=== PATIENT | female | born 1965 | race Caucasian/White ===

== ENCOUNTER 2018-07-19 00:09 | Outpatient (CLI) | payer MEDICAID, SELFPAY ==
--- NOTE | 2018-07-19 10:30 | MERGEMPI_ITS ---
*[facility]* *[facility]* [address] [place] [address] Myocardial Perfusion Imaging - SPECT Ethan protocol Date of study: 07/19/2018 *PATIENT PRESENTATION* Height: 162.6cm (64in) Blood Pressure: Weight: 56.4kg (124lb) BSA: 1.6m^2 Referring physician: Collin Yousif Ordering physician: Rowena Mayo Impressions: - Exercise stress test converted to pharmacological stress test because target heart rate was not achieved. - Normal myocardial perfusion and contraction after pharmacological stress. Summary: 1. Myocardial perfusion imaging: No myocardial perfusion defects noted. 2. The calculated left ventricular ejection fraction after stress: 68%. LV global systolic function is normal. No left ventricular regional motion abnormality. 3. Stress ECG conclusions: The stress ECG is indeterminate due to Inadequate heart rate. 4. Stress: The target heart rate was not achieved. The heart rate response to stress is blunted. There is a normal resting blood pressure with an appropriate response to stress. Exercise capacity is poor (3.5 METS). 5. Baseline ECG: QTc 490ms. Indication: R06.09. History: REASON FOR VISIT: PT IS HERE FOR PRE-SURGICAL SCREENING FOR PLANNED SURGERY WITH DR VALENCIA AT [facility] TO REMOVE BLOCKAGES PER PT'S REPORT. PT DOES NOT HAVE AN HISTORY AND PHYSICAL ON FILE. PMH: COPD. Risk factors: Current tobacco use. Hypertension. Dyslipidemia. Peripheral vascular disease. ALLERGIES: NO KNOWN ALLERGIES. MEDICATIONS: CLONAZEPAM UNKNOWN DOSE NEEDED. LISINOPRIL 20 MG DAILY. METOPROLOL TARTRATE 25 MG TWICE A DAY. Imaging Technique: Protocol: Ethan protocol. Acquisition: Gated SPECT; 1 day - rest/stress. The patient was imaged in the supine position. Attenuation correction used. Isotope administration: - Rest. Tc[99m]-sestamibi. Dose: 9.3mCi. Injection time: 10:20 AM. Injection to stress time: 00:45. - Stress. Tc[99m]-sestamibi. Dose: 28.1mCi. Injection time: 12:40 PM. 1-2 min before end of exercise Baseline ECG: SINUS RHYTHM. HR 71 BPM. INCOMPLETE BBB PATTERN. FLATTENED T WAVES IN ANTEROLATERAL LEADS. QTc 490ms. Normal sinus rhythm with a nonspecific intraventricular conduction defect and borderline QT interval. Stress protocol: + +--+ + + !Stage !HR!BP (mmHg) !Comments ! + +--+ + + !Baseline supine !71!110/58 (75)! ! + +--+ + + !Baseline standing!73!90/52 (65) ! ! + +--+ + + !Recovery; 1 min !93!132/58 (83)! ! + +--+ + + !Recovery; 6 min !82!142/64 (90)! ! + +--+ + + !1 min !93!138/62 (87)!Inject Regadenoson.! + +--+ + + !3 min !89!148/64 (92)! ! + +--+ + + !6 min !83!116/60 (79)! ! + +--+ + + * Stress results: Maximal heart rate during stress was 101bpm (60% of maximal predicted heart rate). The maximal predicted heart rate was 169bpm. The target heart rate was not achieved. The heart rate response to stress is blunted. There is a normal resting blood pressure with an appropriate response to stress. The rate-pressure product for the peak heart rate and blood pressure was 77274so Hg/min. Exercise capacity is poor (3.5 METS). Stress ECG: TREADMILL PORTION OF STRESS TEST ENDED IN 1 MINUTE & 49 SECONDS PER PT'S REQUEST DUE TO COMPLAINTS OF SIGNIFICANT HIP PAIN. PT WAS TRANSITIONED TO LEXISCAN PROTOCOL. NORMAL HEART RATE AND NORMAL BLOOD PRESSURE RESPONSE TO EXERCISE MAX HR = 101 % OF TARGET = 59 NO ECTOPY APPROXIMATE METS ACHIEVED = 3.58 NO [address] NO SIGNIFICANT ST SEGMENT CHANGES MARKEDLY DIMINISHED FUNCTIONAL CAPACITY FOR EXERCISE. LEXISCAN STRESS TEST ENDED IN 6 MINUTES. PT DID NOT EXPERIENCE ANY SIGNIFICANT SIDE EFFECTS FROM LEXISCAN. NORMAL HEART RATE AND BLOOD PRESSURE RESPONSE TO LEXISCAN NO ECTOPY NO ANGINA NO SIGNIFICANT ST SEGMENT CHANGES. The stress ECG is indeterminate due to Inadequate heart rate. Myocardial perfusion: Imaging information: gated. The image quality was good. Left ventricular size is normal. No myocardial perfusion defects noted. Ventricular Function (Wall Motion): The calculated left ventricular ejection fraction after stress: 68%. LV global systolic function is normal. No left ventricular regional motion abnormality. Study data: Collin Yousif MD supervised and was readily available during the procedure. This study was interpreted by [facility]. Study status: Routine. Consent: The risks, benefits, and alternatives to the procedure were explained to the patient and informed consent was obtained. Procedure: Initial setup. A baseline ECG was recorded. Surface ECG leads and manual cuff blood pressure measurements were monitored. Heart sounds: Normal. Lung sounds: Normal. Treadmill exercise testing was performed using the Ethan protocol. Study completion: All catheters inserted during the procedure were removed. The patient tolerated the procedure well and was discharged from the lab. Discharge: The patient left the laboratory in stable condition. Birthdate: Patient birthdate: 1965. Sex: Gender: female. Study date: Study date: 07/19/2018. Study time: 12:30 PM. Signature Documentation: - The imaging portion of this study was interpreted by [employer] Press Secretary Collin Yousif MD. - The Stress ECG portion of this study was interpreted by Collin Yousif MD. Electronically signed by Collin Yousif 07/19/2018 16:27
[2018-07-19] MEDS: Regadenoson 0.4 MG/5 ML SYR IVP (15:08)
== END 2018-07-19 00:29 ==
PROVIDERS: PCP Family Medicine; Visit Provider Family Medicine
DX: R06.09 Other forms of dyspnea (principal); R94.30 Abnormal result of cardiovascular function study, unspecified; J44.9 Chronic obstructive pulmonary disease, unspecified; I10 Essential (primary) hypertension; E78.5 Hyperlipidemia, unspecified
CPT/HCPCS: 78452; 93017; J2785

== ENCOUNTER 2018-07-20 00:59 | Outpatient (CLI) | payer MEDICAID, SELFPAY ==
--- NOTE | 2018-07-20 10:38 | MERGE_ITS ---
*[facility]* *[facility]* [address] [place] [address] Date of study: 07/20/2018 Transthoracic Echocardiography M-mode, complete 2D, complete spectral Doppler, and color Doppler *STUDY CONCLUSIONS* Summary: 1. Left ventricle: The cavity size was normal. There was mild focal basal hypertrophy of the septum. Systolic function was hyperdynamic. The estimated ejection fraction was 65-70%. There was no dynamic obstruction. Wall motion was normal; there were no regional wall motion abnormalities. 2. Mitral valve: There was mild regurgitation. 3. Right ventricle: The cavity size was normal. Wall thickness was normal. Systolic function was normal. 4. Atrial septum: There was a very small patent foramen ovale. Doppler showed a very small [id number] shunt. *PATIENT PRESENTATION* Height: 162.6cm ((64in) ) S/D Pressure: 87 / 49 Weight: 56.2kg ((123.7lb) ) BSA: 1.59m^2 Test start time: 10:40 AM. Test stop time: 11:30 AM. ORDERING Rowena Mayo REFERRING Rowena Mayo PERFORMING Unknown PERFORMING [facility] [employer] RT Bolivar Kauffman)SHAKIR)ANGELA *PROCEDURE DATA* Procedure information: This study was interpreted by [facility]. Pertinent images and digital data are archived for permanent storage and are available for subsequent review. No prior study was available for comparison. Study status: Routine. Transthoracic echocardiography. M-mode, complete 2D, complete spectral Doppler, and color Doppler. A Transthoracic Echocardiogram was performed. Scanning was performed from the parasternal, apical, subcostal, and suprasternal notch acoustic windows. Images were obtained using an [id number] cardiac ultrasound machine. Image quality was adequate. Study completion: The patient tolerated the procedure well. There were no complications. History: PMH: Peripheral vascular disease. COPD. *CARDIAC ANATOMY* Left ventricle: The cavity size was normal. There was mild focal basal hypertrophy of the septum. Systolic function was hyperdynamic. The estimated ejection fraction was 65-70%. There was no dynamic obstruction. Wall motion was normal; there were no regional wall motion abnormalities. Diastolic parameters were normal. Aortic valve: Trileaflet; mildly thickened, mildly calcified leaflets. Mobility was not restricted. Doppler: Transvalvular velocity was within the normal range. There was no stenosis. There was no significant regurgitation. VTI ratio of LVOT to aortic valve: 0.97. Valve area (VTI): 3cm^2. Indexed valve area (VTI): 1.9cm^2/m^2. Peak velocity ratio of LVOT to aortic valve: 0.88. Valve area (Vmax): 2.7cm^2. Indexed valve area (Vmax): 1.7cm^2/m^2. Mean velocity ratio of LVOT to aortic valve: 0.93. Valve area (Vmean): 2.8cm^2. Indexed valve area (Vmean): 1.8cm^2/m^2. Mean gradient (S): 4.2mm Hg. Peak gradient (S): 8.5mm Hg. Aorta: Aortic root: The aortic root was normal in size. Mitral valve: Structurally normal valve. Mobility was not restricted. Doppler: Transvalvular velocity was within the normal range. There was no evidence for stenosis. There was mild regurgitation. Valve area by pressure half-time: 6.5cm^2. Indexed valve area by pressure half-time: 4.1cm^2/m^2. Peak gradient (D): 4.3mm Hg. Left atrium: The atrium was normal in size. Atrial septum: There was a very small patent foramen ovale. Doppler showed a very small [id number] shunt. Right ventricle: The cavity size was normal. Wall thickness was normal. Systolic function was normal. Pulmonic valve: The pulmonary valve appears to be grossly normal. Doppler: Transvalvular velocity was within the normal range. There was no evidence for stenosis. There was no significant regurgitation. Peak gradient (S): 2.7mm Hg. Tricuspid valve: Structurally normal valve. Doppler: Transvalvular velocity was within the normal range. There was no evidence for stenosis. There was trivial regurgitation. Pulmonary artery: Pulmonary systolic pressure was within the normal range, in the range of 30mm Hg to 35mm Hg. Right atrium: The atrium was normal in size. Pericardium: There was no pericardial effusion. Systemic veins: Inferior vena cava: Well visualized. The vessel was patent and normal in size. The respirophasic diameter changes were in the normal range (greater than or equal to 50%). Baseline ECG: Normal sinus rhythm. Measurements Left ventricle Value Reference LV ID, ED, PLAX 4.4 cm 3.5 - 6.0 LV ID, ES, PLAX 2.8 cm 2.1 - 4.0 LV PW thickness, ED, PLAX 1.0 cm LV end-diastolic volume, 1-p A2C 63 ml LV ejection fraction, 1-p A2C 59 % LV end-diastolic volume, 1-p A4C 69 ml LV ejection fraction, 1-p A4C 69 % LV e', lateral 0.116 m/sec LV E/e', lateral 9 LV e', medial 0.074 m/sec LV E/e', medial 14 LV e', average 0.095 m/sec LV E/e', average 11 Ventricular septum Value Reference IVS thickness, ED, PLAX 0.9 cm LVOT Value Reference LVOT ID, A-P 2.0 cm LVOT area 3.1 cm^2 LVOT peak velocity, S 1.28 m/sec LVOT mean velocity, S 0.89 m/sec LVOT VTI, S 26.1 cm LVOT peak gradient, S 6.5 mm Hg LVOT mean gradient, S 3.6 mm Hg Stroke volume (SV), LVOT DP 80 ml Stroke index (SV/bsa), LVOT DP 50 ml/m^2 Aortic valve Value Reference Aortic valve peak velocity, S 1.5 m/sec Aortic valve mean velocity, S 0.96 m/sec Aortic valve VTI, S 27.0 cm Aortic mean gradient, S 4.2 mm Hg Aortic peak gradient, S 8.5 mm Hg VTI ratio, LVOT/AV 0.97 Aortic valve area, VTI 3 cm^2 Velocity ratio, peak, LVOT/AV 0.88 Aortic valve area, peak velocity 2.7 cm^2 Velocity ratio, mean, LVOT/AV 0.93 Aortic valve area, mean velocity 2.8 cm^2 Aortic valve area/bsa, mean velocity 1.8 cm^2/m^2 Aorta Value Reference Aortic root ID, ED 2.7 cm Ascending aorta ID, A-P, S 3.3 cm RVOT Value Reference RVOT VTI, S 17.3 cm Left atrium Value Reference LA ID, A-P, ES 3.4 cm LA ID/bsa, A-P 2.1 cm/m^2 <=2.2 LA area, ES, A4C 18.5 cm^2 8.8 - 23.4 LA area, ES, A2C 14 cm^2 LA volume/bsa, ES, 1-p A4C 32 ml/m^2 LA volume, ES, 2-p 42 ml LA volume/bsa, ES, 2-p 26 ml/m^2 LA/aortic root ratio 1.24 Mitral valve Value Reference Mitral E-wave peak velocity 1.03 m/sec Mitral A-wave peak velocity 0.49 m/sec Mitral deceleration time (L) 116 ms 150 - 230 Mitral pressure half-time 34 ms Mitral peak gradient, D 4.3 mm Hg Mitral E/A ratio, peak 2.11 Mitral valve area, PHT, DP 6.5 cm^2 Pulmonary veins Value Reference Pulmonary vein peak velocity, S 0.55 m/sec Pulmonary vein peak velocity, D 0.49 m/sec Pulmonary vein velocity ratio, peak, 1.11 S/D Tricuspid valve Value Reference Tricuspid regurg peak velocity 2.8 m/sec Tricuspid peak RV-RA gradient 32.2 mm Hg Right atrium Value Reference RA area, ES, A4C 11.9 cm^2 8.3 - 19.5 Pulmonic valve Value Reference Pulmonic peak gradient, S 2.7 mm Hg Legend: (L) and (H) qi values outside specified reference range. I have personally reviewed the images and have reviewed and edited the reported findings. Electronically signed by Collin Yousif 07/20/2018 16:14
== END 2018-07-20 01:19 ==
PROVIDERS: PCP Family Medicine; Visit Provider Family Medicine
DX: J44.9 Chronic obstructive pulmonary disease, unspecified (principal); I73.9 Peripheral vascular disease, unspecified; I05.1 Rheumatic mitral insufficiency
CPT/HCPCS: 93306

== ENCOUNTER 2018-09-26 15:41 | Inpatient (IN) | payer MEDICAID, SELFPAY ==
[2018-09-26] VITALS (48 sets, daily range): BP systolic 111–172; BP diastolic 48–157; PULSE 97–192; RESP 17–35; TEMP 36.2–36.5; O2SAT 95–100
--- NOTE | 2018-09-26 16:09 | DI.CT_ITS ---
SYMPTOM/DIAGNOSIS: SHORTNESS OF BREATH, PALPITATIONS, H/O CANCER CT ANGIOGRAPHY CHEST: 09/26 CT angiography of the chest was performed with a bolus infusion of 100 cc IsoVue 370. Images obtained through the upper abdomen show unremarkable appearance of visualized portions of kidneys, adrenals, spleen and pancreas. There appears to be hepatic steatosis. There is significant motion artifact on this scan which limits evaluation of peripheral pulmonary arterial circulation, however, there is no evidence of pulmonary embolic disease. No thoracic aortic aneurysm or dissection seen. No mediastinal or hilar adenopathy. Tracheobronchial tree appears intact. Note is made of areas of ground glass and consolidative opacity involving portions of lingula, left lower lobe and right lower lobe. The findings are suspicious for a pneumonia, please correlate clinically. The esophagus appears thick-walled particularly in the mid-thoracic region and there is question of esophageal mass and/or retained ingested material. Requisition states the patient has a 'history of cancer' and correlation requested regarding esophageal carcinoma, if the patient has not had recent endoscopy an endoscopic evaluation of the esophagus would be recommended. CONCLUSION: 1. Findings suggesting multifocal pneumonia 2. Findings of probable esophageal mass or obstruction, endoscopic evaluation of the esophagus recommended.
[2018-09-26 16:39] LABS: Abs Immature Grans 0.08 k/cumm (0.0-0.09); Basophils % 0.1; HGB 10.4 g/dL (12.0-15.5); Immature Grans % 0.5; Lymphocytes % 8.7; Mean Corp. HGB Concentration 35.9 g/dL (32.0-36.0); Mean Corpuscular Hemoglobin 33.2 pg (27.0-33.0); Mean Corpuscular Volume 92.7 fL (80-95); Mean Platelet Volume 10.2 fL (8.0-11.0); Monocytes % 4.5; Neutrophils % 86.2; Platelet Count 257 x1000/uL (130-400); RBC 3.13 m/cumm (4.00-5.20); RBC Distribution Width 13.3 % (11.7-14.6); White Blood Cell Count 14.99 k/cumm (4.4-10.8)
[2018-09-26] MEDS: LORazepam 2 MG/ML VIAL 1 MG IVP ×3 (16:49→17:57)
[2018-09-26] MEDS: Normal Saline 1,000 ML 1000 ML IV (16:49)
[2018-09-26 16:50] LABS: Absolute Basophil Count 0.01 k/cumm (0.0-0.2); Absolute Monocyte Count 0.67 k/cumm (0.11-0.7); Absolute Neutrophil Count 12.92 k/cumm (1.2-6.7)
[2018-09-26 17:01] LABS: ALT 20 U/L (12-78); AST 67 U/L (15-37); Albumin 2.5 g/dL (3.4-5.0); Alkaline Phosphatase 90 U/L (46-116); Anion Gap 21.3 mmol/L (3-11); BUN 18 mg/dL (7-18); Bilirubin, Direct 0.71 mg/dL (0.00-0.20); Bilirubin, Total 1.2 mg/dL (0.2-1.0); CO2 19.7 mmol/L (21.0-32.0); Calcium 8.7 mg/dL (8.5-10.1); Chloride 89 mmol/L (98-107); Estimated GFR 43.18 (mL/min/1.73m2); Glucose 120 mg/dL (70-100); Sodium 130 mmol/L (136-145); Total Protein 6.9 g/dL (6.4-8.2); Troponin I 0.04 ng/mL (0.00-0.06)
[2018-09-26 17:16] LABS: Potassium 2.1 mmol/L (3.5-5.1)
[2018-09-26] MEDS: LORazepam 2 MG/ML VIAL (17:17)
[2018-09-26] MEDS: POTASSIUM CHLORIDE 20 MEQ/100 ML BAG 50 MEQ IVPB ×3 (17:25→23:35)
[2018-09-26] MEDS: MAGNESIUM SULFATE 8.12 MEQ, MULTIVITAMIN 10 ML, THIAMINE 100 MG, FOLIC ACID 1 MG in Nor... 168.867 MG IV (17:30)
--- NOTE | 2018-09-26 17:31 | W.ED.GENAD ---
Discharge Plan Disposition Patient Disposition: [facility] INPATIENT Condition: Serious Discharge Details Chief Complaint: Palpitatns Clinical Impression: Alcohol withdrawal hallucinosis, Hypokalemia, Hypomagnesemia Reason For Visit: DAWNA Primary Care Provider: Rowena Mayo V ED Provider: Komal Chambers Home Meds and New Rx's Prescriptions: No Action lisinopril [Zestril] 20 MG tablet 20 mg PO DAILY RF: 0 metoprolol tartrate 25 MG tablet 50 mg PO BID RF: 0 clonazepam [Klonopin] 1 MG tablet PO PRN PRNRF: 0 cephalexin 500 MG capsule 500 mg PO QID Qty: 28 RF: 0 sulfamethoxazole-trimethoprim [Bactrim DS] 1 EACH tablet 1 ea PO BID Qty: 20 RF: 0 Medical Decision Making 53-year-old female with history of COPD, hypertension, hypothyroidism, breast cancer, depression, anxiety and alcohol abuse who presents for palpitations for the past week, worse today with shortness of breath. Patient is a significantly poor historian and was unable to recall any of her medications, and her complaint of palpitations changed from today to 1 week ago. She also stated she did not know what procedure she has at [facility] tomorrow and whether it is a bypass or an endoscopy. On questioning, patient did admit to history of daily alcohol use, and that her last drink was 3 days ago. Blood pressure 164/138. Pulse 122. Main concern would be alcohol withdrawal. Differential diagnosis includes alcohol withdrawal, pulmonary embolism, ACS, electrolyte abnormality, thyroid crisis, arrhythmia, pneumonia. Will place an IV, bolus IV fluids, Ativan IV, labs, urinalysis, alcohol, UDS, CT chest to rule out PE pending labs. EKG notes a rate of 114, sinus tachycardia, ST depression of 1 mL noted in V4, V5, V6. Significant artifact likely due to pt movement. No acute ST elevation. QTc 496. QRS 108. No old EKG to compare. 1715 -- pt noted to be hallucinating, restless, more tachycardic, still hypertensive. Concern would be alcohol withdrawal hallucinosis. Will give another dose 2mg ativan IV and obtain CT head chichi. Patient able to state her name and follow commands but is significantly restless and confused at times. When calling her name, she looks around and takes time to focus. She does not answer all questions appropriately and stated she thought she was at a friend's house. She does appear more confused than on arrival. Suspect likely alcohol withdrawal and concern for possible impending seizure. Will continue to give Ativan as needed. Low threshold for intubation if needed. Labs reviewed and note a white blood cell count of 14. Hemoglobin of 10. Potassium 2.1. Sodium 130. Bicarb 19. Anion gap 21. Magnesium 1. Troponin 0.04. Alcohol negative. Will order potassium and magnesium repletion. 174 -- d/w hospitalist - accepts pt for admission. Will come down to see pt. Discussed that will send to CT for CT head and CT chest once more stable and chichi. Will obtain portable chest x-ray now. Will give another milligram Ativan due to restlessness. 162 --chest x-ray notes a left lower lobe consolidation atelectasis versus pneumonia. Will hold on antibiotics at this time. Will order lactate and blood cultures. Patient appears more relaxed/less restless after return from CT. Nurse had placed a Romero catheter which appeared to produce more relaxation as patient had large amount of urine in bag. 184 --CT head negative for acute findings. CT chest noted alveolitis. Discussed with Dr. Laughlin and she will start antibiotics. Patient appeared to have faint b/l posterior tibialis pulses on my exam, difficult to assess dorsalis pedis pulses b/l. Her distal lower extremities were pale and cool to touch but no other skin changes noted. Bedside Doppler unable to assess the pulse but was difficult to obtain due to frequent patient movement. HPI General Mode of arrival: EMS. Date/Time Provider Initiated Documentation: 09/26/18 15:51. Limitations to Documentation: no limitations. Information obtained by: patient. HPI Narrative: Patient is a 53-year-old female with a history of COPD, breast cancer, alcohol abuse, anxiety and depression who presents for palpitations for the past week, worse today and associated with shortness of breath. Patient admits to drinking a sixpack of beer daily, states she last drank 3 days ago. She is a daily smoker. Patient states she is not sure she has been taking any of her medications. Patient is a poor historian and states that she has a procedure scheduled at [facility] tomorrow but she is not sure if it is a bypass or an endoscopy. States she is seen by [facility] cardiology Dr. Singleton and a GI doctor but she is unsure of his name. She denies any chest pain. Past medical history: COPD, hypertension, peripheral vascular disease, hypothyroidism, breast cancer, depression, anxiety, alcohol abuse Surgical history: Tubal ligation, breast lump x2 Social history: Smokes tobacco, daily drinker Medications: See list -nurse confirmed with pharmacy that patient is not taking any of her medications Allergies: NKDA Related Data Home Medications Medication Instructions Recorded Confirmed lisinopril [Zestril] 20 mg PO DAILY 02/13/14 09/26/18 metoprolol tartrate 50 mg PO BID 02/13/14 09/26/18 cephalexin 500 mg PO QID #28 cap 08/26/16 09/15/16 clonazepam [Klonopin] mg PO PRN PRN 08/26/16 sulfamethoxazole-trimethoprim 1 ea PO BID #20 tablet 09/15/16 09/26/18 [Bactrim DS] Previous Rx's Medication Instructions Recorded cephalexin 500 mg PO QID #28 cap 08/26/16 sulfamethoxazole-trimethoprim 1 ea PO BID #20 tablet 09/15/16 [Bactrim DS] Allergies Allergy/AdvReac Type Severity Reaction Status Date / Time No Known Allergies Allergy Unverified 12/10/17 14:16 General Stated Complaint: Palpitatns DELMI: 2 Review of Systems Review of Systems All systems reviewed & are unremarkable except as noted in HPI and below Constitutional Denies chills, Denies excessive sweating, Denies fatigue, Denies fever(s), Denies weakness and Denies weight loss Eyes Reports system reviewed and no additional complaints, except as docu and Denies blurry vision ENT Denies vertigo, Denies dizziness, Denies otalgia, Denies nasal congestion, Denies sore throat and Denies throat swelling Cardiovascular Denies chest pain, Denies syncope, Denies rapid heart rate, Reports palpitations and Reports dyspnea Respiratory Reports dyspnea Gastrointestinal Denies abdominal pain, Denies diarrhea and Denies vomiting Genitourinary Denies hematuria, Denies dysuria and Denies flank pain Musculoskeletal Denies back pain and Denies joint swelling Integumentary/Breasts Denies lesions and Denies rash Neurologic Denies behavioral changes, Denies confusion, Denies vertigo, Denies dizziness, Denies syncope and Denies weakness Psychiatric Denies behavioral changes, Denies confusion and Denies depression Endocrine Denies excessive sweating, Denies fatigue and Reports palpitations Hematologic/Lymphatic Denies easy bruising and Denies lymphadenopathy Allergic/Immunologic Denies throat swelling [facility] Social History Smoking/Tobacco Use Status: Current every day Exam Const General: cooperative and healthy appearing Orientation: alert and awake HENMT Head: normal to inspection Ears: hearing grossly normal bilaterally, external ears normal and TM's normal bilaterally General nose exam: external nose normal Face and sinus: normal facial exam Mouth: oral mucosae normal Teeth and gingiva: caries, poor dentition and other (no upper teeth) Throat: posterior oropharynx normal Eyes General: appearance normal, both eyes and all related structures Eyelids: eyelids normal Pupils: PERRL EOM: EOM intact bilaterally Neck Neck: normal visual inspection Lymphatic: no lymphadenopathy noted Chest Chest: normal inspection of the chest Resp Effort & Inspection: no retractions, tachypneic (Frequent deep and fast breaths through the nose) and other Auscultation: clear to auscultation bilaterally Cardio Rate: tachycardic Rhythm: regular rhythm GI Inspection: normal to inspection Palpation: soft, not firm, no guarding, no hepatosplenomegaly, no masses and nontender Auscultation: normal bowel sounds Back/Spine/Pelvis Back: no CVA tenderness Skin General skin exam: no rashes or lesions noted Neuro General: alert and awake Cognition: normal cognition Speech: abnormal speech garbled (pt states due to not having her dentures, speaks with pursed lips) Gait: normal gait Motor: muscle tone normal throughout and strength 5/5 throughout Sensory Exam: no sensory deficits noted Extrem General: normal to inspection, full ROM, no edema and other (Cool to touch bilaterally, faint bilateral PT pulse.) Psych Appearance: grossly normal Mental Status: mental status grossly normal Speech and Movement: speech and movement normal Affect: normal affect Thought Process: normal Course 09/26/18 19:30 Blood Blood Culture - Pending 09/26/18 19:13 Blood Blood Culture - Pending 09/26/18 18:50 Urine - Reflex from Ua Urine Culture - Pending Laboratory Tests Range/Units 09/26/18 09/26/18 09/26/18 16:30 16:30 16:30 WBC (4.4-10.8) k/cumm 14.99 H RBC (4.00-5.20) m/cumm 3.13 L Hgb (12.0-15.5) g/dL 10.4 L Hct (36.0-46.0) % 29.0 L MCV (80-95) fL 92.7 MCH (27.0-33.0) pg 33.2 H MCHC (32.0-36.0) g/dL 35.9 RDW (11.7-14.6) % 13.3 Plt Count (130-400) x1000/uL 257 MPV (8.0-11.0) fL 10.2 Immature Gran % 0.5 Neutrophils % 86.2 Lymphocytes % 8.7 Monocytes % 4.5 Eosinophils % 0.0 Basophils % 0.1 Absolute Neutrophils (1.2-6.7) k/cumm 12.92 H Absolute Lymphocytes (1.2-3.4) k/cumm 1.30 Absolute Monocytes (0.11-0.7) k/cumm 0.67 Absolute Eosinophils (0.0-0.7) k/cumm 0.00 Absolute Basophils (0.0-0.2) k/cumm 0.01 PT (9.3-10.8) sec 11.6 H INR (1.0-3.5) 1.2 APTT (21.0-31.4) sec 22.6 Sodium (136-145) mmol/L 130 L Potassium (3.5-5.1) mmol/L 2.1 L* Chloride (98-107) mmol/L 89 L Carbon Dioxide (21.0-32.0) mmol/L 19.7 L Anion Gap (3-11) mmol/L 21.3 H BUN (7-18) mg/dL 18 Creatinine (0.55-1.02) mg/dL 1.30 H Estimated GFR/1.73 m2 (mL/min/1.73m2) 43.18 Glucose (70-100) mg/dL 120 H Lactate (0.6-1.4) mmol/L Calcium (8.5-10.1) mg/dL 8.7 Magnesium (1.8-2.4) mg/dL 1.0 L Total Bilirubin (0.2-1.0) mg/dL 1.2 H Conjugated Bilirubin (0.00-0.20) mg/dL 0.71 H AST (15-37) U/L 67 H ALT (12-78) U/L 20 Alkaline Phosphatase (46-116) U/L 90 Troponin I (0.00-0.06) ng/mL 0.04 Total Protein (6.4-8.2) g/dL 6.9 Albumin (3.4-5.0) g/dL 2.5 L TSH (0.358-3.74) uIU/mL Urine Color (Yellow) Urine Clarity Urine pH (5-8) Ur Specific Raymond (1.005-1.025) Urine Protein (Negative) mg/dL Urine Ketones (Negative) mg/dL Urine Blood (Negative) Urine Nitrite (Negative) Urine Bilirubin (Negative) Urine Urobilinogen (Up TO 0.2) EU/dL Ur Leukocyte Esterase (Negative) Urine RBC (0-2) Urine WBC (0-5) HPF Ur Epithelial Cells (Negative) HPF Urine Crystals (Negative) HPF Urine Bacteria (Negative) HPF Urine Casts (Negative) LPF Urine Mucus (Negative) Ur Culture Indicated? Urine Glucose (Negative) mg/dL Urine Opiates Screen (Negative) Urine Methadone Screen (Negative) Ur Barbiturates Screen (Negative) Ur Tricyclics Screen (Negative) Ur Amphetamines Screen (Negative) U Benzodiazepines Scrn (Negative) Urine Cocaine Screen (Negative) Ur THC Screen (Negative) Ethyl Alcohol (<3) mg/dL < 3.0 Range/Units 09/26/18 09/26/18 09/26/18 16:30 17:58 18:50 WBC (4.4-10.8) k/cumm RBC (4.00-5.20) m/cumm Hgb (12.0-15.5) g/dL Hct (36.0-46.0) % MCV (80-95) fL MCH (27.0-33.0) pg MCHC (32.0-36.0) g/dL RDW (11.7-14.6) % Plt Count (130-400) x1000/uL MPV (8.0-11.0) fL Immature Gran % Neutrophils % Lymphocytes % Monocytes % Eosinophils % Basophils % Absolute Neutrophils (1.2-6.7) k/cumm Absolute Lymphocytes (1.2-3.4) k/cumm Absolute Monocytes (0.11-0.7) k/cumm Absolute Eosinophils (0.0-0.7) k/cumm Absolute Basophils (0.0-0.2) k/cumm PT (9.3-10.8) sec INR (1.0-3.5) APTT (21.0-31.4) sec Sodium (136-145) mmol/L Potassium (3.5-5.1) mmol/L Chloride (98-107) mmol/L Carbon Dioxide (21.0-32.0) mmol/L Anion Gap (3-11) mmol/L BUN (7-18) mg/dL Creatinine (0.55-1.02) mg/dL Estimated GFR/1.73 m2 (mL/min/1.73m2) Glucose (70-100) mg/dL Lactate (0.6-1.4) mmol/L Calcium (8.5-10.1) mg/dL Magnesium (1.8-2.4) mg/dL Total Bilirubin (0.2-1.0) mg/dL Conjugated Bilirubin (0.00-0.20) mg/dL AST (15-37) U/L ALT (12-78) U/L Alkaline Phosphatase (46-116) U/L Troponin I (0.00-0.06) ng/mL Total Protein (6.4-8.2) g/dL Albumin (3.4-5.0) g/dL TSH (0.358-3.74) uIU/mL 1.09 Cancelled Urine Color (Yellow) Yellow Urine Clarity Sl cloudy Urine pH (5-8) 7.0 Ur Specific Raymond (1.005-1.025) 1.015 Urine Protein (Negative) mg/dL Negative Urine Ketones (Negative) mg/dL Negative Urine Blood (Negative) Moderate H Urine Nitrite (Negative) Negative Urine Bilirubin (Negative) Negative Urine Urobilinogen (Up TO 0.2) EU/dL 0.2 Ur Leukocyte Esterase (Negative) Negative Urine RBC (0-2) 0-2 Urine WBC (0-5) HPF 3-5 Ur Epithelial Cells (Negative) HPF Few Urine Crystals (Negative) HPF Negative Urine Bacteria (Negative) HPF Packed Urine Casts (Negative) LPF Negative Urine Mucus (Negative) Negative Ur Culture Indicated? Yes Urine Glucose (Negative) mg/dL Negative Urine Opiates Screen (Negative) Urine Methadone Screen (Negative) Ur Barbiturates Screen (Negative) Ur Tricyclics Screen (Negative) Ur Amphetamines Screen (Negative) U Benzodiazepines Scrn (Negative) Urine Cocaine Screen (Negative) Ur THC Screen (Negative) Ethyl Alcohol (<3) mg/dL Range/Units 09/26/18 09/26/18 18:50 19:13 WBC (4.4-10.8) k/cumm RBC (4.00-5.20) m/cumm Hgb (12.0-15.5) g/dL Hct (36.0-46.0) % MCV (80-95) fL MCH (27.0-33.0) pg MCHC (32.0-36.0) g/dL RDW (11.7-14.6) % Plt Count (130-400) x1000/uL MPV (8.0-11.0) fL Immature Gran % Neutrophils % Lymphocytes % Monocytes % Eosinophils % Basophils % Absolute Neutrophils (1.2-6.7) k/cumm Absolute Lymphocytes (1.2-3.4) k/cumm Absolute Monocytes (0.11-0.7) k/cumm Absolute Eosinophils (0.0-0.7) k/cumm Absolute Basophils (0.0-0.2) k/cumm PT (9.3-10.8) sec INR (1.0-3.5) APTT (21.0-31.4) sec Sodium (136-145) mmol/L Potassium (3.5-5.1) mmol/L Chloride (98-107) mmol/L Carbon Dioxide (21.0-32.0) mmol/L Anion Gap (3-11) mmol/L BUN (7-18) mg/dL Creatinine (0.55-1.02) mg/dL Estimated GFR/1.73 m2 (mL/min/1.73m2) Glucose (70-100) mg/dL Lactate (0.6-1.4) mmol/L 3.1 H Calcium (8.5-10.1) mg/dL Magnesium (1.8-2.4) mg/dL Total Bilirubin (0.2-1.0) mg/dL Conjugated Bilirubin (0.00-0.20) mg/dL AST (15-37) U/L ALT (12-78) U/L Alkaline Phosphatase (46-116) U/L Troponin I (0.00-0.06) ng/mL Total Protein (6.4-8.2) g/dL Albumin (3.4-5.0) g/dL TSH (0.358-3.74) uIU/mL Urine Color (Yellow) Urine Clarity Urine pH (5-8) Ur Specific Raymond (1.005-1.025) Urine Protein (Negative) mg/dL Urine Ketones (Negative) mg/dL Urine Blood (Negative) Urine Nitrite (Negative) Urine Bilirubin (Negative) Urine Urobilinogen (Up TO 0.2) EU/dL Ur Leukocyte Esterase (Negative) Urine RBC (0-2) Urine WBC (0-5) HPF Ur Epithelial Cells (Negative) HPF Urine Crystals (Negative) HPF Urine Bacteria (Negative) HPF Urine Casts (Negative) LPF Urine Mucus (Negative) Ur Culture Indicated? Urine Glucose (Negative) mg/dL Urine Opiates Screen (Negative) Negative Urine Methadone Screen (Negative) Negative Ur Barbiturates Screen (Negative) Negative Ur Tricyclics Screen (Negative) Negative Ur Amphetamines Screen (Negative) Negative U Benzodiazepines Scrn (Negative) Negative Urine Cocaine Screen (Negative) Negative Ur THC Screen (Negative) Negative Ethyl Alcohol (<3) mg/dL Vital Signs Temperature 97.2 F L 09/26/18 15:49 Pulse 122 H 09/26/18 15:49 Respiratory Rate 26 H 09/26/18 15:49 Blood Pressure 164/138 H 09/26/18 15:49 Pulse Oximetry 95 09/26/18 15:49 Temperature 97.2 F L 09/26/18 15:49 Temperature Source Skin 09/26/18 15:49 Pulse 122 H 09/26/18 15:49 Respiratory Rate 26 H 09/26/18 15:49 Respiratory Effort 09/26/18 15:57 Blood Pressure 164/138 H 09/26/18 15:49 Blood Pressure Position Sitting 09/26/18 15:49 Pulse Oximetry 95 09/26/18 15:49 Oxygen Delivery Method Room Air 09/26/18 15:49 Oxygen Flow Rate 0 09/26/18 15:49 Pain Level 0 09/26/18 15:49 Lab/Test Results Lab/Test Results: Laboratory Tests Range/Units 09/26/18 09/26/18 16:30 16:30 WBC (4.4-10.8) k/cumm 14.99 H RBC (4.00-5.20) m/cumm 3.13 L Hgb (12.0-15.5) g/dL 10.4 L Hct (36.0-46.0) % 29.0 L MCV (80-95) fL 92.7 MCH (27.0-33.0) pg 33.2 H MCHC (32.0-36.0) g/dL 35.9 RDW (11.7-14.6) % 13.3 Plt Count (130-400) x1000/uL 257 MPV (8.0-11.0) fL 10.2 Immature Gran % 0.5 Neutrophils % 86.2 Lymphocytes % 8.7 Monocytes % 4.5 Eosinophils % 0.0 Basophils % 0.1 Absolute Neutrophils (1.2-6.7) k/cumm 12.92 H Absolute Lymphocytes (1.2-3.4) k/cumm 1.30 Absolute Monocytes (0.11-0.7) k/cumm 0.67 Absolute Eosinophils (0.0-0.7) k/cumm 0.00 Absolute Basophils (0.0-0.2) k/cumm 0.01 Sodium (136-145) mmol/L 130 L Potassium (3.5-5.1) mmol/L 2.1 L* Chloride (98-107) mmol/L 89 L Carbon Dioxide (21.0-32.0) mmol/L 19.7 L Anion Gap (3-11) mmol/L 21.3 H BUN (7-18) mg/dL 18 Creatinine (0.55-1.02) mg/dL 1.30 H Estimated GFR/1.73 m2 (mL/min/1.73m2) 43.18 Glucose (70-100) mg/dL 120 H Calcium (8.5-10.1) mg/dL 8.7 Magnesium (1.8-2.4) mg/dL 1.0 L Total Bilirubin (0.2-1.0) mg/dL 1.2 H Conjugated Bilirubin (0.00-0.20) mg/dL 0.71 H AST (15-37) U/L 67 H ALT (12-78) U/L 20 Alkaline Phosphatase (46-116) U/L 90 Troponin I (0.00-0.06) ng/mL 0.04 Total Protein (6.4-8.2) g/dL 6.9 Albumin (3.4-5.0) g/dL 2.5 L Critical Care Time Critical Care Time: Yes Total Critical Care Time: 30
[2018-09-26 17:34] LABS: ETHANOL BLOOD < 3.0 mg/dL (<3)
[2018-09-26 17:42] LABS: INR 1.2 (1.0-3.5); PTT Activated 22.6 sec (21.0-31.4); Prothrombin Time 11.6 sec (9.3-10.8)
--- NOTE | 2018-09-26 17:49 | DI.RAD_ITS ---
SYMPTOM/DIAGNOSIS: PALPITATIONS, SOB, R/O ACUTE DISEASE PORTABLE AP CHEST: 09/26 As noted on today's CT there are areas of patchy increased radiodensity in the left mid lung and left lung base, and possible minimal streaky changes in right lung base. The findings are consistent with multi-focal pneumonia, appropriate follow up studies requested.
--- NOTE | 2018-09-26 18:19 | DI.VRAD_ITS ---
EXAM: XR Chest, 1 View EXAM DATE/TIME: 09/26/2018 6:05 PM CLINICAL HISTORY: 53 years old, female; Signs and symptoms; Shortness of breath and other: Palpitations; Additional info: Patient AMS and unable to follow breathing instructions TECHNIQUE: XR of the chest, 1 view. COMPARISON: CR PORTABLE CHEST ONE VIEW 09/15/2016 12:21 AM FINDINGS: Mild left lower lobe consolidation pneumonia versus atelectasis. Pulmonary vasculature within normal limits. No significant pleural effusion. Heart within normal limits. IMPRESSION: Mild left lower lobe consolidation atelectasis versus pneumonia. Dictated and Authenticated by: Rai Lacey MD. Ordering:JOSEP MORRISON MD
--- NOTE | 2018-09-26 18:20 | DI.CT_ITS ---
SYMPTOM/DIAGNOSIS: CONFUSION, R/O ACUTE DISEASE CRANIAL CT: 09/[address] was performed There is moderate generalized cerebral atrophy, abnormal for this age group. There is significant motion artifact which limits interpretation. No gross intracranial hemorrhage, mass effect or midline shift seen, Orbital and temporal bone structures appear intact. CONCLUSION: No evidence of acute intracranial process. Marked atrophy noted.
[2018-09-26 18:25] LABS: TSH 1.09 uIU/mL (0.358-3.74)
[2018-09-26] MEDS: Omnipaque 350 MG/ML 100 ML BTL IJ (18:39)
[2018-09-26] MEDS: MAGNESIUM SULFATE 4 GM/100 ML BAG IVPB (18:48)
[2018-09-26] MEDS: POTASSIUM CHLORIDE 20 MEQ/100 ML BAG 10 MEQ (18:49)
--- NOTE | 2018-09-26 18:55 | DI.VRAD_ITS ---
EXAM: CT Head Without Intravenous Contrast EXAM DATE/TIME: 09/26/2018 6:21 PM CLINICAL HISTORY: 53 years old, female; Signs and symptoms; Altered mental status/memory loss; Confusion or disorientation; Additional info: Patient AMS and unable to hold still for exam TECHNIQUE: Axial computed tomography images of the head/brain without intravenous contrast. All CT scans at this facility use at least one of these dose optimization techniques: automated exposure control; mA and/or kV adjustment per patient size (includes targeted exams where dose is matched to clinical indication); or iterative reconstruction. Coronal and sagittal reformatted images were created and reviewed. COMPARISON: No relevant prior studies available. FINDINGS: Diffuse atrophy. No evidence of hemorrhage. No mass effect. No acute intracranial abnormality. IMPRESSION: No evidence of acute intracranial process. Dictated and Authenticated by: Rai Lacey MD. Ordering:JOSEP MORRISON MD
--- NOTE | 2018-09-26 19:01 | DI.VRAD_ITS ---
EXAM: CT Angiography Chest With Intravenous Contrast EXAM DATE/TIME: 09/26/2018 4:14 PM CLINICAL HISTORY: 53 years old, female; Signs and symptoms; Shortness of breath and other: Palpitations; Patient HX: HX of cancer; Additional info: Patient AMS and unable to follow breathing instructions TECHNIQUE: Axial computed tomographic angiography images of the chest with intravenous contrast using CT angiography protocol. All CT scans at this facility use at least one of these dose optimization techniques: automated exposure control; mA and/or kV adjustment per patient size (includes targeted exams where dose is matched to clinical indication); or iterative reconstruction. Coronal and sagittal reformatted images were created and reviewed. MIP reconstructed images were created and reviewed. CONTRAST: 63 ml of Omnipaque 350 administered intravenously. COMPARISON: CR XR PORTABLE CHEST AP 09/26/2018 6:05 PM FINDINGS: No evidence of pulmonary embolism. Thoracic aorta unremarkable. Groundglass opacity in the lingula and left lower lobe consistent with an alveolitis of uncertain acuity or etiology. Bibasilar atelectasis. Old left-sided rib fractures. Dilatation and ingested material within the mid and distal esophagus area of the possibility of a distal esophageal mass cannot be excluded. Further clinical correlation as needed. IMPRESSION: 1. 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 2. Equivocal findings with respect to the esophagus. Dictated and Authenticated by: Rai Lacey MD. Ordering:JOSEP MORRISON MD
[2018-09-26 19:12] LABS: Bilirubin Negative (Negative); Blood Moderate (Negative); Clarity Sl Cloudy; Glucose Negative (Negative); Ketones Negative (Negative); Leukocyte Esterase Negative (Negative); Nitrite Negative (Negative); Specific Gravity 1.015 (1.005-1.025); Urobilinogen 0.2 EU/dL (Up TO 0.2)
[2018-09-26 19:14] LABS: *AMPHETAMINES SCREEN URINE Negative (Negative); *BARBITURATES SCREEN URINE Negative (Negative); *BENZODIAZEPINES SCREEN URINE Negative (Negative); Cannabinoids THC Negative (Negative); Cocaine Screen,Urine Negative (Negative); METHADONE URINE SCREEN Negative (Negative); OPIATES URINE SCREEN Negative (Negative)
[2018-09-26 19:15] LABS: Tricyclic Antidepressants Negative (Negative)
[2018-09-26 19:21] LABS: RBC 0-2 (0-2)
[2018-09-26 19:22] LABS: Bacteria Packed HPF (Negative); C & S Indicated? Yes; Casts Negative LPF (Negative); Crystals Negative HPF (Negative); Epithelial Cells Few HPF (Negative); Mucus Negative (Negative)
[2018-09-26 19:28] LABS: Lactate-non-spesis 3.1 mmol/L (0.6-1.4)
--- NOTE | 2018-09-26 19:36 | W.PM.HP.N ---
Date of service: 09/26/18 Time of Service: 19:36 Assessment and Plan (1) Sepsis: Current visit: Yes Status: Acute Though tachycardia and altered mental status could also be related to alcohol withdrawal, evidence of alveolitis and the likely mechanism of aspiration as well as presence of lactic acidosis make sepsis still a likely diagnosis. Patient is being aggressively hydrated. Treat empirically with zosyn, await blood culture results. Will need an upper endoscopy to evaluate for reasons of dysphagia, and it likely should be done on this admission as the patient has no followed up with GI as outpatient, per [facility] records. (2) Aspiration pneumonia: Current visit: Yes Status: Acute As above. NPO at this time until surgical evaluation in am. (3) Alcohol withdrawal delirium: Current visit: Yes Status: Acute The patient will need to be treated with CIWA with IV ativan rather than PO as her mental status and ability to swallow pills make intravenous therapy safer. Monitor in ICU. Continue banana bag. (4) Abnormal EKG: Current visit: Yes Status: Acute In setting of electrolyte abnormalities, significance unclear - will monitor on telemetry with repeat troponins tonight and tomorrow am as well as repeat EKG in am. (5) Dysphagia: Current visit: Yes Status: Chronic Surgical evaluation in am. On PPI IV while NPO. High suspicion for malignancy considering CT findings as well as history alcohol and tobacco abuse. (6) Hypomagnesemia: Current visit: Yes Status: Acute Replete and monitor on telemetry. Repeat labs in am. (7) Hypokalemia: Current visit: Yes Status: Acute Replete and recheck in am. Monitor on telemetry. (8) PAD (peripheral artery disease): Current visit: Yes Status: Chronic check lipids in am. Patient already follows with vascular at [facility]. No signs of critical limb ischemia, but the patient does not have pedal pulses on admission, which appears to be her baseline. (9) Breast cancer: Current visit: Yes Status: Chronic s/p lumpectomy/XRT. Noncompliant with tamoxifen. Follow up as outpatient. (10) Urinary retention: Current visit: Yes Status: Acute It is possible that this was precipitated by administration of ativan. S/p benítez - would benefit from a voiding trial once mental status clears up. (11) Normocytic anemia: Current visit: Yes Status: Acute check anemia studies to include iron studies, B12, Folate, and hemoccult. (12) Discharge planning issues: Current visit: Yes Status: Acute I am unable to discuss patient's code status at the time of interview - she is full code by default. (13) DVT prophylaxis: Current visit: Yes Status: Acute Lovenox SQ. History of Present Illness Chief Complaint: palpitations, ?chest pain, shortness of breath Narrative: Patient is unable to provide her medical history at the time of my examination - her history is being obtained from chart review, including [facility], as well as from the ER provider. Ms Welch is a 53 year old female with PMHx of breast cancer (IDC, ER/VA +, lumpectomy and XRT, noncompliant with tamoxifen therapy), as well as PAD, hypertension, hypothyroidism, dysphagia for solids, tobacco abuse and alcohol abuse who, reportedly, was driving to [place] today when she suddenly felt palpitations, pulled over, and dialed 911. EMS found her to be in sinus tachycardia in 130's, hypoxic to high 80's (per ER nursing - EMS report is not available for my review). According to reports, the patient reported chest pain to EMS. When the patient arrived to [facility] ED, she complained more of shortness of breath and palpitations, not chest pain. Though she was A&OX3, the patient was felt to be somewhat disoriented even on arrival, not knowing what medications she takes, what procedure she was supposed to have at [facility]. Nursing verified her medications with her outpatient pharmacy - evidently, the patient hasn't been taking any of her medications. The patient reported that she normally drinks a 6 pack every day, but her last drink was 3 days ago. In ED, she was tachycardic, not hypoxic. About an hour later, she was noted to be agitated, restless, and suspected to have begun withdrawing from alcohol. There was no witnessed seizure activity, but there was a noticeable change in mental status. She was treated with PO and IV ativan. Her CT of the head and CTA of her chest were negative. She was found to be retaining urine (1.4 L out upon insertion of a benítez catheter). At the time of my exam, the patient is obtunded, difficult to arouse, moans to pain, reluctantly following commands. Review of Systems Review of Systems Unobtainable due to mental status [facility] Medical History Medical non-compliance (Chronic) Tobacco abuse (Chronic) Breast cancer (Chronic) PAD (peripheral artery disease) (Chronic) Dysphagia (Chronic) Alcohol abuse (Chronic) Social History Smoking/Tobacco Use Status: Current every day Surgical History H/O breast biopsy (Chronic) Hx of tubal ligation (Chronic) S/P breast lumpectomy (Chronic) Meds Home Medications Medication Instructions Recorded Confirmed Type lisinopril [Zestril] 20 mg PO DAILY 02/13/14 09/26/18 History metoprolol tartrate 50 mg PO BID 02/13/14 09/26/18 History cephalexin 500 mg PO QID #28 cap 08/26/16 09/15/16 Rx clonazepam [Klonopin] mg PO PRN PRN 08/26/16 History sulfamethoxazole-trimethoprim 1 ea PO BID #20 tablet 09/15/16 09/26/18 Rx [Bactrim DS] Allergies Allergy/AdvReac Type Severity Reaction Status Date / Time No Known Allergies Allergy Unverified 09/26/18 19:49 Exam Narrative Exam Narrative: General: Obtunded middle-aged female, appears older than her age, moaning to/withdraws from pain, squeezing my hand on command Neurological: obtunded, responsive to pain, reluctantly following commands, no focal deficits Psychiatric: Difficult to assess Skin: Pale/dry, no obvious bruises/rashes. LLE 3rd digit with a tiny scab HEENT: Does not voluntarily open eyes; when I open then, PERRLA B, EOMI. Holding mouth tightly shut - unable to open for oropharyngeal exam. No submandibular or cervical lymphadenopathy; no goiter or JVD. Cardiovascular: RRR, tachycardic, no murmurs, rubs, gallops Lungs: CTAB; nonlabored breathing on 2 L of NC Gastrointestinal: Abdomen soft, nontender, nondistended Genitourinary: has a benítez - urine clear yellow Extremities: no edema, clubbing or cyanosis. Bilateral feet are cool, pale; I am unable to palpate pedal pulses. Results Imaging Additional studies: CT head: No evidence of acute intracranial process. CXR: Mild left lower lobe consolidation atelectasis versus pneumonia. CTA chest: 1. 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 2. Equivocal findings with respect to the esophagus. ( Dilatation and ingested material within the mid and distal esophagus area of the possibility of a distal esophageal mass cannot be excluded. Further clinical correlation as needed. ) EKG: Sinus tachycardia, HR 114, ST depressions in inferior-lateral leads and nonspecific ST changes throughout. No prior EKG for comparison. Labs : 09/26/18 16:30 09/26/18 16:30 Laboratory Results - last 24 hr 09/26/18 09/26/18 09/26/18 16:30 16:30 16:30 WBC 14.99 H RBC 3.13 L Hgb 10.4 L Hct 29.0 L MCV 92.7 MCH 33.2 H MCHC 35.9 RDW 13.3 Plt Count 257 MPV 10.2 Immature Gran % 0.5 Neutrophils % 86.2 Lymphocytes % 8.7 Monocytes % 4.5 Eosinophils % 0.0 Basophils % 0.1 Absolute Neutrophils 12.92 H Absolute Lymphocytes 1.30 Absolute Monocytes 0.67 Absolute Eosinophils 0.00 Absolute Basophils 0.01 PT 11.6 H INR 1.2 APTT 22.6 Sodium 130 L Potassium 2.1 L* Chloride 89 L Carbon Dioxide 19.7 L Anion Gap 21.3 H BUN 18 Creatinine 1.30 H Estimated GFR/1.73 m2 43.18 Glucose 120 H Lactate Calcium 8.7 Magnesium 1.0 L Total Bilirubin 1.2 H Conjugated Bilirubin 0.71 H AST 67 H ALT 20 Alkaline Phosphatase 90 Troponin I 0.04 Total Protein 6.9 Albumin 2.5 L TSH Urine Color Urine Clarity Urine pH Ur Specific [place] Urine Protein Urine Ketones Urine Blood Urine Nitrite Urine Bilirubin Urine Urobilinogen Ur Leukocyte Esterase Urine RBC Urine WBC Ur Epithelial Cells Urine Crystals Urine Bacteria Urine Casts Urine Mucus Ur Culture Indicated? Urine Glucose Urine Opiates Screen Urine Methadone Screen Ur Barbiturates Screen Ur Tricyclics Screen Ur Amphetamines Screen U Benzodiazepines Scrn Urine Cocaine Screen Ur THC Screen Ethyl Alcohol < 3.0 09/26/18 09/26/18 09/26/18 16:30 17:58 18:50 WBC RBC Hgb Hct MCV MCH MCHC RDW Plt Count MPV Immature Gran % Neutrophils % Lymphocytes % Monocytes % Eosinophils % Basophils % Absolute Neutrophils Absolute Lymphocytes Absolute Monocytes Absolute Eosinophils Absolute Basophils PT INR APTT Sodium Potassium Chloride Carbon Dioxide Anion Gap BUN Creatinine Estimated GFR/1.73 m2 Glucose Lactate Calcium Magnesium Total Bilirubin Conjugated Bilirubin AST ALT Alkaline Phosphatase Troponin I Total Protein Albumin TSH 1.09 Cancelled Urine Color Yellow Urine Clarity Sl cloudy Urine pH 7.0 Ur Specific [place] 1.015 Urine Protein Negative Urine Ketones Negative Urine Blood Moderate H Urine Nitrite Negative Urine Bilirubin Negative Urine Urobilinogen 0.2 Ur Leukocyte Esterase Negative Urine RBC 0-2 Urine WBC 3-5 Ur Epithelial Cells Few Urine Crystals Negative Urine Bacteria Packed Urine Casts Negative Urine Mucus Negative Ur Culture Indicated? Yes Urine Glucose Negative Urine Opiates Screen Urine Methadone Screen Ur Barbiturates Screen Ur Tricyclics Screen Ur Amphetamines Screen U Benzodiazepines Scrn Urine Cocaine Screen Ur THC Screen Ethyl Alcohol 09/26/18 09/26/18 18:50 19:13 WBC RBC Hgb Hct MCV MCH MCHC RDW Plt Count MPV Immature Gran % Neutrophils % Lymphocytes % Monocytes % Eosinophils % Basophils % Absolute Neutrophils Absolute Lymphocytes Absolute Monocytes Absolute Eosinophils Absolute Basophils PT INR APTT Sodium Potassium Chloride Carbon Dioxide Anion Gap BUN Creatinine Estimated GFR/1.73 m2 Glucose Lactate 3.1 H Calcium Magnesium Total Bilirubin Conjugated Bilirubin AST ALT Alkaline Phosphatase Troponin I Total Protein Albumin TSH Urine Color Urine Clarity Urine pH Ur Specific [place] Urine Protein Urine Ketones Urine Blood Urine Nitrite Urine Bilirubin Urine Urobilinogen Ur Leukocyte Esterase Urine RBC Urine WBC Ur Epithelial Cells Urine Crystals Urine Bacteria Urine Casts Urine Mucus Ur Culture Indicated? Urine Glucose Urine Opiates Screen Negative Urine Methadone Screen Negative Ur Barbiturates Screen Negative Ur Tricyclics Screen Negative Ur Amphetamines Screen Negative U Benzodiazepines Scrn Negative Urine Cocaine Screen Negative Ur THC Screen Negative Ethyl Alcohol Last Vital Signs Temp 36.2 C L 09/26/18 15:49 Pulse 122 H 09/26/18 18:46 Resp 20 09/26/18 18:50 BP 118/101 H 09/26/18 18:46 Pulse Ox 97 09/26/18 19:06
--- NOTE | 2018-09-26 19:45 | HPE_ITS ---
Date of service: 09/26/18 Time of Service: 19:36 Assessment and Plan (1) Sepsis: Current visit: Yes Status: Acute Though tachycardia and altered mental status could also be related to alcohol withdrawal, evidence of alveolitis and the likely mechanism of aspiration as well as presence of lactic acidosis make sepsis still a likely diagnosis. Patient is being aggressively hydrated. Treat empirically with zosyn , await blood culture results. Will need an upper endoscopy to evaluate for reasons of dysphagia, and it likely should be done on this admission as the patient has no followed up with GI as outpatient, per [facility] records. (2) Aspiration pneumonia: Current visit: Yes Status: Acute As above. NPO at this time until surgical evaluation in am. (3) Alcohol withdrawal delirium: Current visit: Yes Status: Acute The patient will need to be treated with CIWA with IV ativan rather than PO as her mental status and ability to swallow pills make intravenous therapy safer. Monitor in ICU. Continue banana bag. (4) Abnormal EKG: Current visit: Yes Status: Acute In setting of electrolyte abnormalities, significance unclear - will monitor on telemetry with repeat troponins tonight and tomorrow am as well as repeat EKG in am. (5) Dysphagia: Current visit: Yes Status: Chronic Surgical evaluation in am. On PPI IV while NPO. High suspicion for malignancy considering CT findings as well as history alcohol and tobacco abuse. (6) Hypomagnesemia: Current visit: Yes Status: Acute Replete and monitor on telemetry. Repeat labs in am. (7) Hypokalemia: Current visit: Yes Status: Acute Replete and recheck in am. Monitor on telemetry. (8) PAD (peripheral artery disease): Current visit: Yes Status: Chronic check lipids in am. Patient already follows with vascular at [facility]. No signs of critical limb ischemia, but the patient does not have pedal pulses on admission, which appears to be her baseline. (9) Breast cancer: Current visit: Yes Status: Chronic s/p lumpectomy/XRT. Noncompliant with tamoxifen. Follow up as outpatient. (10) Urinary retention: Current visit: Yes Status: Acute It is possible that this was precipitated by administration of ativan. S/ p benítez - would benefit from a voiding trial once mental status clears up. (11) Normocytic anemia: Current visit: Yes Status: Acute check anemia studies to include iron studies, B12, Folate, and hemoccult. (12) Discharge planning issues: Current visit: Yes Status: Acute I am unable to discuss patient's code status at the time of interview - she is full code by default. (13) DVT prophylaxis: Current visit: Yes Status: Acute Lovenox SQ. History of Present Illness Chief Complaint: palpitations, ?chest pain, shortness of breath Narrative: Patient is unable to provide her medical history at the time of my examination - her history is being obtained from chart review, including [facility] , as well as from the ER provider. Ms Welch is a 53 year old female with PMHx of breast cancer (IDC, ER/CT +, lumpectomy and XRT, noncompliant with tamoxifen therapy), as well as PAD, hypertension, hypothyroidism, dysphagia for solids, tobacco abuse and alcohol abuse who, reportedly, was driving to [place] today when she suddenly felt palpitations, pulled over, and dialed 911. EMS found her to be in sinus tachycardia in 130's, hypoxic to high 80's (per ER nursing - EMS report is not available for my review). According to reports, the patient reported chest pain to EMS. When the patient arrived to [facility] ED, she complained more of shortness of breath and palpitations, not chest pain. Though she was A&OX3, the patient was felt to be somewhat disoriented even on arrival, not knowing what medications she takes, what procedure she was supposed to have at [facility]. Nursing verified her medications with her outpatient pharmacy - evidently, the patient hasn't been taking any of her medications. The patient reported that she normally drinks a 6 pack every day, but her last drink was 3 days ago. In ED, she was tachycardic, not hypoxic. About an hour later, she was noted to be agitated, restless, and suspected to have begun withdrawing from alcohol. There was no witnessed seizure activity, but there was a noticeable change in mental status. She was treated with PO and IV ativan. Her CT of the head and CTA of her chest were negative. She was found to be retaining urine (1.4 L out upon insertion of a benítez catheter). At the time of my exam, the patient is obtunded , difficult to arouse, moans to pain, reluctantly following commands. Review of Systems Review of Systems Unobtainable due to mental status [facility] Medical History Medical non-compliance (Chronic) Tobacco abuse (Chronic) Breast cancer (Chronic) PAD (peripheral artery disease) (Chronic) Dysphagia (Chronic) Alcohol abuse (Chronic) Social History Smoking/Tobacco Use Status: Current every day Surgical History H/O breast biopsy (Chronic) Hx of tubal ligation (Chronic) S/P breast lumpectomy (Chronic) Meds Home Medications Medication Instructions Recorded Confirmed Type lisinopril [Zestril] 20 mg PO DAILY 02/13/14 09/26/18 History metoprolol tartrate 50 mg PO BID 02/13/14 09/26/18 History cephalexin 500 mg PO QID #28 cap 08/26/16 09/15/16 Rx clonazepam [Klonopin] mg PO PRN PRN 08/26/16 History sulfamethoxazole-trimethoprim 1 ea PO BID #20 tablet 09/15/16 09/26/18 Rx [Bactrim DS] Allergies Allergy/AdvReac Type Severity Reaction Status Date / Time No Known Allergies Allergy Unverified 09/26/18 19:49 Exam Narrative Exam Narrative: General: Obtunded middle-aged female, appears older than her age, moaning to/withdraws from pain, squeezing my hand on command Neurological: obtunded, responsive to pain, reluctantly following commands, no focal deficits Psychiatric: Difficult to assess Skin: Pale/dry, no obvious bruises/rashes. LLE 3rd digit with a tiny scab HEENT: Does not voluntarily open eyes; when I open then, PERRLA B, EOMI. Holding mouth tightly shut - unable to open for oropharyngeal exam. No submandibular or cervical lymphadenopathy; no goiter or JVD. Cardiovascular: RRR, tachycardic, no murmurs, rubs, gallops Lungs: CTAB; nonlabored breathing on 2 L of NC Gastrointestinal: Abdomen soft, nontender, nondistended Genitourinary: has a benítez - urine clear yellow Extremities: no edema, clubbing or cyanosis. Bilateral feet are cool, pale; I am unable to palpate pedal pulses. Results Imaging Additional studies: CT head: No evidence of acute intracranial process. CXR: Mild left lower lobe consolidation atelectasis versus pneumonia. CTA chest: 1. 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 2. Equivocal findings with respect to the esophagus. ( Dilatation and ingested material within the mid and distal esophagus area of the possibility of a distal esophageal mass cannot be excluded. Further clinical correlation as needed. ) EKG: Sinus tachycardia, HR 114, ST depressions in inferior-lateral leads and nonspecific ST changes throughout. No prior EKG for comparison. Labs : 09/26/18 16:30 09/26/18 16:30 Laboratory Results - last 24 hr 09/26/18 09/26/18 09/26/18 16:30 16:30 16:30 WBC 14.99 H RBC 3.13 L Hgb 10.4 L Hct 29.0 L MCV 92.7 MCH 33.2 H MCHC 35.9 RDW 13.3 Plt Count 257 MPV 10.2 Immature Gran % 0.5 Neutrophils % 86.2 Lymphocytes % 8.7 Monocytes % 4.5 Eosinophils % 0.0 Basophils % 0.1 Absolute Neutrophils 12.92 H Absolute Lymphocytes 1.30 Absolute Monocytes 0.67 Absolute Eosinophils 0.00 Absolute Basophils 0.01 PT 11.6 H INR 1.2 APTT 22.6 Sodium 130 L Potassium 2.1 L* Chloride 89 L Carbon Dioxide 19.7 L Anion Gap 21.3 H BUN 18 Creatinine 1.30 H Estimated GFR/1.73 m2 43.18 Glucose 120 H Lactate Calcium 8.7 Magnesium 1.0 L Total Bilirubin 1.2 H Conjugated Bilirubin 0.71 H AST 67 H ALT 20 Alkaline Phosphatase 90 Troponin I 0.04 Total Protein 6.9 Albumin 2.5 L TSH Urine Color Urine Clarity Urine pH Ur Specific [place] Urine Protein Urine Ketones Urine Blood Urine Nitrite Urine Bilirubin Urine Urobilinogen Ur Leukocyte Esterase Urine RBC Urine WBC Ur Epithelial Cells Urine Crystals Urine Bacteria Urine Casts Urine Mucus Ur Culture Indicated? Urine Glucose Urine Opiates Screen Urine Methadone Screen Ur Barbiturates Screen Ur Tricyclics Screen Ur Amphetamines Screen U Benzodiazepines Scrn Urine Cocaine Screen Ur THC Screen Ethyl Alcohol < 3.0 09/26/18 09/26/18 09/26/18 16:30 17:58 18:50 WBC RBC Hgb Hct MCV MCH MCHC RDW Plt Count MPV Immature Gran % Neutrophils % Lymphocytes % Monocytes % Eosinophils % Basophils % Absolute Neutrophils Absolute Lymphocytes Absolute Monocytes Absolute Eosinophils Absolute Basophils PT INR APTT Sodium Potassium Chloride Carbon Dioxide Anion Gap BUN Creatinine Estimated GFR/1.73 m2 Glucose Lactate Calcium Magnesium Total Bilirubin Conjugated Bilirubin AST ALT Alkaline Phosphatase Troponin I Total Protein Albumin TSH 1.09 Cancelled Urine Color Yellow Urine Clarity Sl cloudy Urine pH 7.0 Ur Specific [place] 1.015 Urine Protein Negative Urine Ketones Negative Urine Blood Moderate H Urine Nitrite Negative Urine Bilirubin Negative Urine Urobilinogen 0.2 Ur Leukocyte Esterase Negative Urine RBC 0-2 Urine WBC 3-5 Ur Epithelial Cells Few Urine Crystals Negative Urine Bacteria Packed Urine Casts Negative Urine Mucus Negative Ur Culture Indicated? Yes Urine Glucose Negative Urine Opiates Screen Urine Methadone Screen Ur Barbiturates Screen Ur Tricyclics Screen Ur Amphetamines Screen U Benzodiazepines Scrn Urine Cocaine Screen Ur THC Screen Ethyl Alcohol 09/26/18 09/26/18 18:50 19:13 WBC RBC Hgb Hct MCV MCH MCHC RDW Plt Count MPV Immature Gran % Neutrophils % Lymphocytes % Monocytes % Eosinophils % Basophils % Absolute Neutrophils Absolute Lymphocytes Absolute Monocytes Absolute Eosinophils Absolute Basophils PT INR APTT Sodium Potassium Chloride Carbon Dioxide Anion Gap BUN Creatinine Estimated GFR/1.73 m2 Glucose Lactate 3.1 H Calcium Magnesium Total Bilirubin Conjugated Bilirubin AST ALT Alkaline Phosphatase Troponin I Total Protein Albumin TSH Urine Color Urine Clarity Urine pH Ur Specific [place] Urine Protein Urine Ketones Urine Blood Urine Nitrite Urine Bilirubin Urine Urobilinogen Ur Leukocyte Esterase Urine RBC Urine WBC Ur Epithelial Cells Urine Crystals Urine Bacteria Urine Casts Urine Mucus Ur Culture Indicated? Urine Glucose Urine Opiates Screen Negative Urine Methadone Screen Negative Ur Barbiturates Screen Negative Ur Tricyclics Screen Negative Ur Amphetamines Screen Negative U Benzodiazepines Scrn Negative Urine Cocaine Screen Negative Ur THC Screen Negative Ethyl Alcohol Last Vital Signs Temp 36.2 C L 09/26/18 15:49 Pulse 122 H 09/26/18 18:46 Resp 20 09/26/18 18:50 BP 118/101 H 09/26/18 18:46 Pulse Ox 97 09/26/18 19:06
[2018-09-26] MEDS: Normal Saline Flush 10 ML SYR IVP (21:37)
[2018-09-26] MEDS: Pantoprazole 40 MG VIAL IVP (21:38)
[2018-09-26] MEDS: PIPERACILLIN/TAZO 3.375 GM in Normal Saline 50 ML IVPB (22:03)
[2018-09-26 22:38] LABS: Lactate-non-spesis 1.1 mmol/L (0.6-1.4)
[2018-09-26] MEDS: Enoxaparin 40 MG/0.4 ML SYR SC (22:54)
[2018-09-26 23:03] LABS: Troponin I 0.08 ng/mL (0.00-0.06)
[2018-09-26] MEDS: Enoxaparin 30 MG/0.3 ML SYR 40 MG SC (23:09)
[2018-09-26] MEDS: Aspirin 300 MG SUPP PR (23:36)
[2018-09-27] VITALS (99 sets, daily range): BP systolic 93–142; BP diastolic 48–91; PULSE 86–136; RESP 16–41; TEMP 36–37.1; O2SAT 87–100
[2018-09-27] MEDS: LORazepam 2 MG/ML VIAL 1 MG IVP ×7 (01:03→21:20)
[2018-09-27] MEDS: POTASSIUM CHLORIDE 20 MEQ/100 ML BAG 50 MEQ IVPB ×3 (01:22→06:02)
[2018-09-27] MEDS: PIPERACILLIN/TAZO 3.375 GM in Normal Saline 50 ML IVPB ×4 (03:36→22:30)
[2018-09-27] MEDS: LORazepam 2 MG/ML VIAL IVP (04:08)
[2018-09-27 07:37] LABS: Lactate-non-spesis 1.3 mmol/L (0.6-1.4)
[2018-09-27 07:46] LABS: Abs Immature Grans 0.04 k/cumm (0.0-0.09); Absolute Basophil Count 0.01 k/cumm (0.0-0.2); Absolute Monocyte Count 0.75 k/cumm (0.11-0.7); Basophils % 0.1; Eosinophils % 0.2; HCT 27.8 % (36.0-46.0); HGB 9.6 g/dL (12.0-15.5); Immature Grans % 0.3; Lymphocytes % 16.8; Mean Corp. HGB Concentration 34.5 g/dL (32.0-36.0); Mean Corpuscular Hemoglobin 32.7 pg (27.0-33.0); Mean Corpuscular Volume 94.6 fL (80-95); Mean Platelet Volume 10.3 fL (8.0-11.0); Monocytes % 6.1; Neutrophils % 76.5; Platelet Count 239 x1000/uL (130-400); RBC 2.94 m/cumm (4.00-5.20); RBC Distribution Width 13.4 % (11.7-14.6); White Blood Cell Count 12.35 k/cumm (4.4-10.8)
[2018-09-27 07:47] LABS: Absolute Eosinophil Count 0.02 k/cumm (0.0-0.7); Absolute Lymphocyte Count 2.07 k/cumm (1.2-3.4); Absolute Neutrophil Count 9.45 k/cumm (1.2-6.7)
[2018-09-27 07:56] LABS: ALT 19 U/L (12-78); AST 91 U/L (15-37); Albumin 2.3 g/dL (3.4-5.0); Alkaline Phosphatase 84 U/L (46-116); Bilirubin, Direct 0.43 mg/dL (0.00-0.20); Bilirubin, Total 0.7 mg/dL (0.2-1.0); Total Protein 6.5 g/dL (6.4-8.2)
[2018-09-27 08:09] LABS: Anion Gap 9.2 mmol/L (3-11); BUN 9 mg/dL (7-18); CO2 26.8 mmol/L (21.0-32.0); CREATININE 0.83 mg/dL (0.55-1.02); Calcium 7.3 mg/dL (8.5-10.1); Chloride 96 mmol/L (98-107); Glucose 126 mg/dL (70-100); Magnesium 1.9 mg/dL (1.8-2.4); Sodium 132 mmol/L (136-145); Troponin I 0.06 ng/mL (0.00-0.06)
[2018-09-27 08:31] LABS: Ferritin 599 ng/mL (8-388)
[2018-09-27 09:09] LABS: Iron 128 ug/dL (50-175); Total Iron Binding Capacity 153 ug/dL (250-450); Transferrin Sat 84 % (15-50)
[2018-09-27 09:33] LABS: Cholesterol 116 mg/dL (50-200); HDL Cholesterol 25 mg/dL (40-60); LDL CHOLESTEROL 71 mg/dL (<100); Triglyceride 114 mg/dL (30-150); Vitamin B12 1404 pg/mL (193-986)
[2018-09-27 09:38] LABS: Folate > 20.0 ng/mL (8.6-20.0)
[2018-09-27] MEDS: Normal Saline Flush 10 ML SYR IVP ×2 (10:43→22:30)
--- NOTE | 2018-09-27 11:32 | SCONE_ITS ---
Date of service: 09/27/18 Time of Service: 11:30 Assessment and Plan (1) Dysphagia: Current visit: Yes Status: Chronic 53 y/o female with h/o breast cancer, PAD, HTN, medical noncompliance and reported dysphagia who is admitted for possible pneumonia and DTs. Surgical consultation requested for EGD. Agree with recommendation for EGD per CT chest findings. However, patient is not awake enough at this time to discuss the procedure for informed consent. Family not present at this time. EGD can be done on this admission but is non-emergent. Will re-evaluate when patient is more awake and cleared from a medical standpoint to proceed with EGD. Will check INR for EGD with probable biopsies. History of Present Illness Chief Complaint: Abnormal chest CT/ dysphagia Narrative: 53 y/o female seen in the ICU. Patient is somnolent. She has been medicated with Ativan per [facility] protocol. Patient admitted for palpitations, DTs , possible aspiration pneumonia. History is obtained from review of the chart as patient is not able to provide any history at this time. She reportedly was driving when she developed palpitations and was found to be tachycardic and hypoxic by EMS. She had a head CT, chest CT, and CXR on admission. No acute intracranial findings noted. ? esophageal thickening/mass on CT concerning for possible CA. Alveolitis noted on imaging. Patient has a history of breast cancer for which she underwent a lumpectomy and radiation therapy. She reportedly has been medically noncompliant with Tamoxifen and other meds. She also has a reported history of PAD, HTN, hypothyroidism, dysphagia, tobacco abuse, and alcohol abuse. She reportedly drinks a 6 pack/day and her last drink was 3 days ago. She developed mental status changes in the ED attributed to DTs. Unclear from chart if patient was already scheduled for an outpatient EGD at [facility]. Consults Consult date: 09/27/18 Requesting physician: Natalie Laughlin Review of Systems Review of Systems Unobtainable due to mental status [facility] Medical History Medical non-compliance (Chronic) Tobacco abuse (Chronic) Breast cancer (Chronic) PAD (peripheral artery disease) (Chronic) Dysphagia (Chronic) Alcohol abuse (Chronic) Hypertension (Chronic) Hypothyroidism (Chronic) Social History Smoking/Tobacco Use Status: Current every day alcohol intake: current alcohol intake frequency: 3 or more drinks per day Alcohol type: beer Surgical History H/O breast biopsy (Chronic) Hx of tubal ligation (Chronic) S/P breast lumpectomy (Chronic) Exam Const General: no acute distress Nutritional Appearance: average body habitus Limitations: altered mental status Other: Patient arouses to touch, opens eyes. Mumbles answers to questions - difficult to understand. Able to shift position in bed on her own. HENMT Head: normocephalic and atraumatic Resp Effort & Inspection: normal respiratory effort Cardio Jugular venous pressure: no JVD Rate: regular rate Rhythm: regular rhythm GI Inspection: non-distended Palpation: soft, not firm, no guarding, no masses and nontender Skin General skin exam: no rashes or lesions noted and no jaundice Results Last Vital Signs Temp 36.5 C 09/27/18 06:55 Pulse 105 H 09/27/18 10:30 Resp 20 09/27/18 10:00 BP 112/62 09/27/18 10:30 Pulse Ox 99 09/27/18 10:30 Labs : 09/27/18 07:23 09/27/18 07:23 Laboratory Results - last 24 hr 09/26/18 09/26/18 09/26/18 16:30 16:30 16:30 WBC 14.99 H RBC 3.13 L Hgb 10.4 L Hct 29.0 L MCV 92.7 MCH 33.2 H MCHC 35.9 RDW 13.3 Plt Count 257 MPV 10.2 Immature Gran % 0.5 Neutrophils % 86.2 Lymphocytes % 8.7 Monocytes % 4.5 Eosinophils % 0.0 Basophils % 0.1 Absolute Neutrophils 12.92 H Absolute Lymphocytes 1.30 Absolute Monocytes 0.67 Absolute Eosinophils 0.00 Absolute Basophils 0.01 PT 11.6 H INR 1.2 APTT 22.6 Sodium 130 L Potassium 2.1 L* Chloride 89 L Carbon Dioxide 19.7 L Anion Gap 21.3 H BUN 18 Creatinine 1.30 H Estimated GFR/1.73 m2 43.18 Glucose 120 H Lactate Calcium 8.7 Magnesium 1.0 L Iron TIBC Transferrin % Sat Ferritin Total Bilirubin 1.2 H Conjugated Bilirubin 0.71 H AST 67 H ALT 20 Alkaline Phosphatase 90 Troponin I 0.04 Total Protein 6.9 Albumin 2.5 L Triglycerides Total Cholesterol LDL Cholesterol Direct HDL Cholesterol Vitamin B12 Folate TSH Urine Color Urine Clarity Urine pH Ur Specific [place] Urine Protein Urine Ketones Urine Blood Urine Nitrite Urine Bilirubin Urine Urobilinogen Ur Leukocyte Esterase Urine RBC Urine WBC Ur Epithelial Cells Urine Crystals Urine Bacteria Urine Casts Urine Mucus Ur Culture Indicated? Urine Glucose Urine Opiates Screen Urine Methadone Screen Ur Barbiturates Screen Ur Tricyclics Screen Ur Amphetamines Screen U Benzodiazepines Scrn Urine Cocaine Screen Ur THC Screen Ethyl Alcohol < 3.0 09/26/18 09/26/18 09/26/18 16:30 17:58 18:50 WBC RBC Hgb Hct MCV MCH MCHC RDW Plt Count MPV Immature Gran % Neutrophils % Lymphocytes % Monocytes % Eosinophils % Basophils % Absolute Neutrophils Absolute Lymphocytes Absolute Monocytes Absolute Eosinophils Absolute Basophils PT INR APTT Sodium Potassium Chloride Carbon Dioxide Anion Gap BUN Creatinine Estimated GFR/1.73 m2 Glucose Lactate Calcium Magnesium Iron TIBC Transferrin % Sat Ferritin Total Bilirubin Conjugated Bilirubin AST ALT Alkaline Phosphatase Troponin I Total Protein Albumin Triglycerides Total Cholesterol LDL Cholesterol Direct HDL Cholesterol Vitamin B12 Folate TSH 1.09 Cancelled Urine Color Yellow Urine Clarity Sl cloudy Urine pH 7.0 Ur Specific [place] 1.015 Urine Protein Negative Urine Ketones Negative Urine Blood Moderate H Urine Nitrite Negative Urine Bilirubin Negative Urine Urobilinogen 0.2 Ur Leukocyte Esterase Negative Urine RBC 0-2 Urine WBC 3-5 Ur Epithelial Cells Few Urine Crystals Negative Urine Bacteria Packed Urine Casts Negative Urine Mucus Negative Ur Culture Indicated? Yes Urine Glucose Negative Urine Opiates Screen Urine Methadone Screen Ur Barbiturates Screen Ur Tricyclics Screen Ur Amphetamines Screen U Benzodiazepines Scrn Urine Cocaine Screen Ur THC Screen Ethyl Alcohol 09/26/18 09/26/18 09/26/18 18:50 19:13 22:30 WBC RBC Hgb Hct MCV MCH MCHC RDW Plt Count MPV Immature Gran % Neutrophils % Lymphocytes % Monocytes % Eosinophils % Basophils % Absolute Neutrophils Absolute Lymphocytes Absolute Monocytes Absolute Eosinophils Absolute Basophils PT INR APTT Sodium Potassium Chloride Carbon Dioxide Anion Gap BUN Creatinine Estimated GFR/1.73 m2 Glucose Lactate 3.1 H 1.1 Calcium Magnesium Iron TIBC Transferrin % Sat Ferritin Total Bilirubin Conjugated Bilirubin AST ALT Alkaline Phosphatase Troponin I Total Protein Albumin Triglycerides Total Cholesterol LDL Cholesterol Direct HDL Cholesterol Vitamin B12 Folate TSH Urine Color Urine Clarity Urine pH Ur Specific [place] Urine Protein Urine Ketones Urine Blood Urine Nitrite Urine Bilirubin Urine Urobilinogen Ur Leukocyte Esterase Urine RBC Urine WBC Ur Epithelial Cells Urine Crystals Urine Bacteria Urine Casts Urine Mucus Ur Culture Indicated? Urine Glucose Urine Opiates Screen Negative Urine Methadone Screen Negative Ur Barbiturates Screen Negative Ur Tricyclics Screen Negative Ur Amphetamines Screen Negative U Benzodiazepines Scrn Negative Urine Cocaine Screen Negative Ur THC Screen Negative Ethyl Alcohol 09/26/18 09/27/18 09/27/18 22:30 07:23 07:23 WBC 12.35 H RBC 2.94 L Hgb 9.6 L Hct 27.8 L MCV 94.6 MCH 32.7 MCHC 34.5 RDW 13.4 Plt Count 239 MPV 10.3 Immature Gran % 0.3 Neutrophils % 76.5 Lymphocytes % 16.8 Monocytes % 6.1 Eosinophils % 0.2 Basophils % 0.1 Absolute Neutrophils 9.45 H Absolute Lymphocytes 2.07 Absolute Monocytes 0.75 H Absolute Eosinophils 0.02 Absolute Basophils 0.01 PT INR APTT Sodium 132 L Potassium 4.0 D Chloride 96 L Carbon Dioxide 26.8 Anion Gap 9.2 BUN 9 D Creatinine 0.83 Estimated GFR/1.73 m2 >= 60.00 Glucose 126 H Lactate Calcium 7.3 L Magnesium 1.9 Iron TIBC Transferrin % Sat Ferritin Total Bilirubin Conjugated Bilirubin AST ALT Alkaline Phosphatase Troponin I 0.08 H 0.06 Total Protein Albumin Triglycerides Total Cholesterol LDL Cholesterol Direct HDL Cholesterol Vitamin B12 Folate TSH Urine Color Urine Clarity Urine pH Ur Specific [place] Urine Protein Urine Ketones Urine Blood Urine Nitrite Urine Bilirubin Urine Urobilinogen Ur Leukocyte Esterase Urine RBC Urine WBC Ur Epithelial Cells Urine Crystals Urine Bacteria Urine Casts Urine Mucus Ur Culture Indicated? Urine Glucose Urine Opiates Screen Urine Methadone Screen Ur Barbiturates Screen Ur Tricyclics Screen Ur Amphetamines Screen U Benzodiazepines Scrn Urine Cocaine Screen Ur THC Screen Ethyl Alcohol 09/27/18 09/27/18 09/27/18 07:23 07:23 07:23 WBC RBC Hgb Hct MCV MCH MCHC RDW Plt Count MPV Immature Gran % Neutrophils % Lymphocytes % Monocytes % Eosinophils % Basophils % Absolute Neutrophils Absolute Lymphocytes Absolute Monocytes Absolute Eosinophils Absolute Basophils PT INR APTT Sodium Potassium Chloride Carbon Dioxide Anion Gap BUN Creatinine Estimated GFR/1.73 m2 Glucose Lactate 1.3 Calcium Magnesium Iron 128 TIBC 153 L Transferrin % Sat 84 H Ferritin 599 H Total Bilirubin 0.7 Conjugated Bilirubin 0.43 H AST 91 H ALT 19 Alkaline Phosphatase 84 Troponin I Total Protein 6.5 Albumin 2.3 L Triglycerides Total Cholesterol LDL Cholesterol Direct HDL Cholesterol Vitamin B12 Folate TSH Urine Color Urine Clarity Urine pH Ur Specific [place] Urine Protein Urine Ketones Urine Blood Urine Nitrite Urine Bilirubin Urine Urobilinogen Ur Leukocyte Esterase Urine RBC Urine WBC Ur Epithelial Cells Urine Crystals Urine Bacteria Urine Casts Urine Mucus Ur Culture Indicated? Urine Glucose Urine Opiates Screen Urine Methadone Screen Ur Barbiturates Screen Ur Tricyclics Screen Ur Amphetamines Screen U Benzodiazepines Scrn Urine Cocaine Screen Ur THC Screen Ethyl Alcohol 09/27/18 07:23 WBC RBC Hgb Hct MCV MCH MCHC RDW Plt Count MPV Immature Gran % Neutrophils % Lymphocytes % Monocytes % Eosinophils % Basophils % Absolute Neutrophils Absolute Lymphocytes Absolute Monocytes Absolute Eosinophils Absolute Basophils PT INR APTT Sodium Potassium Chloride Carbon Dioxide Anion Gap BUN Creatinine Estimated GFR/1.73 m2 Glucose Lactate Calcium Magnesium Iron TIBC Transferrin % Sat Ferritin Total Bilirubin Conjugated Bilirubin AST ALT Alkaline Phosphatase Troponin I Total Protein Albumin Triglycerides 114 Total Cholesterol 116 LDL Cholesterol Direct 71 HDL Cholesterol 25 L Vitamin B12 1404 H Folate > 20.0 H TSH Urine Color Urine Clarity Urine pH Ur Specific [place] Urine Protein Urine Ketones Urine Blood Urine Nitrite Urine Bilirubin Urine Urobilinogen Ur Leukocyte Esterase Urine RBC Urine WBC Ur Epithelial Cells Urine Crystals Urine Bacteria Urine Casts Urine Mucus Ur Culture Indicated? Urine Glucose Urine Opiates Screen Urine Methadone Screen Ur Barbiturates Screen Ur Tricyclics Screen Ur Amphetamines Screen U Benzodiazepines Scrn Urine Cocaine Screen Ur THC Screen Ethyl Alcohol Imaging Chest x-ray: report reviewed CT scan - chest: report reviewed and image reviewed Additional studies: CT head - report reviewed. Imaging Studies: Patient Name: JENNIFER BRANDT #: [id number]: ICU Ordering Provider: Komal Chambers #: [id number]: ADM IN Primary Care Provider: Rowena Mayo M.D.Date of Exam: 09/26/18ex: F : 1965Age: 53 Exam(s) a CT:CT chest PE CTA SYMPTOM/DIAGNOSIS: SHORTNESS OF BREATH, PALPITATIONS, H/O CANCER CT ANGIOGRAPHY CHEST: 09/26 CT angiography of the chest was performed with a bolus infusion of 100 cc IsoVue 370. Images obtained through the upper abdomen show unremarkable appearance of visualized portions of kidneys, adrenals, spleen and pancreas. There appears to be hepatic steatosis. There is significant motion artifact on this scan which limits evaluation of peripheral pulmonary arterial circulation, however, there is no evidence of pulmonary embolic disease. No thoracic aortic aneurysm or dissection seen. No mediastinal or hilar adenopathy. Tracheobronchial tree appears intact. Note is made of areas of ground glass and consolidative opacity involving portions of lingula, left lower lobe and right lower lobe. The findings are suspicious for a pneumonia, please correlate clinically. The esophagus appears thick-walled particularly in the mid-thoracic region and there is question of esophageal mass and/or retained ingested material. Requisition states the patient has a 'history of cancer' and correlation requested regarding esophageal carcinoma, if the patient has not had recent endoscopy an endoscopic evaluation of the esophagus would be recommended. CONCLUSION: 1. Findings suggesting multifocal pneumonia 2. Findings of probable esophageal mass or obstruction, endoscopic evaluation of the esophagus recommended. [id number]: Total DLP = 320.75 mGy-cm Ordered By: Komal Chambers DO CC: Dictated By: Alonzo Alexis M.D. 09/27/18 0734 Transcribed By: Manjula Trinidad 09/27/18 [id number]
--- NOTE | 2018-09-27 12:31 | PHARADMIT ---
Addendum entered by Sandy Hoffman 10/10/18 13:50: ASA, Lovenox, Ibuprofen dc'd Started Protonix infusion for heme+ stool Original Note: Addendum entered by Sandy Hoffman 10/10/18 13:26: Pharmacy Note Subjective * patient not able to swallow pills, nursing crushing or sprinkling meds* Objective Vs ok, stool heme positive, Mag 1.4, H/H 7.9/24.0 Micro urine: negative Micro blood: 3rd set is pending Assessment Mag-SR changed to MagOx yesterday so able to be crushed Mag replaced IV yesterday and again today Pt's own Tamoxifen was brought in from family for this morning's dose MD watching H/H closely since drifting down Cefazolin continues for Bacteremia Plan Total of 4 weeks Anbx coverage....another aprox 2 weeks to go Will swingbed when H/H normalizes, electrolytes normal range and repeat BC results are avail check Micro 3rd set of blood cultures drawn 10/09 Original Note: Addendum entered by Bryant Adair III 10/08/18 15:56: Pharmacy Note Subjective H&H improved and increasing after yesterdays transfusion Objective VS-ok H&H- 8.7/25.8 Mag-2.2 Wgt-48 kg No BM since 10/04 Assessment PICC-line is in Cefazolin 2gm iv q8hr x 15 more days. Magnesium level has finally increased. Plan Patient may go to swing bed once H&H has stabilized. MD mentioned starting Plavix..... Original Note: Addendum entered by Bryant Adair III 10/07/18 16:57: Pharmacy Note Subjective H&H down, transfusion ordered for 1 unit pRBC's . Objective vs-ok ciwa-7 Mag-1.1 H&H-7.0/20.9 WBC, Plts,SCr-OK Assessment Continues to receive MagSO4 boluses (4gm BID. Oxacillin to change to Cefazolin 2gm IV q8hrs to order PICC Line Plan MD spoke with [facility], IV ABX for 4 weeks total (16 mote days) Original Note: Addendum entered by Bryant Adair III 10/05/18 11:16: Pharmacy Note Subjective Patient went to [facility] [place] today, to return Objective VS-OK Labs-OK Mag-1.3 Wgt-49.8 kg BM 10/04 Assessment Oxacillin continues. MD to order on going MagSO4 therapy until levels normalize Plan MD thinks patient may require DEEDEE to r/o Endocarditis Original Note: Addendum entered by Angélica Vega 10/04/18 14:49: Pharmacy Note Subjective nursing reported some swallowing issues, so some meds were altered so could be swallowed (crushed or opened) Objective BP-113/52 Tmax-37.78 other VS okay Na-130 mag-1.3 Assessment oxacillin continues (day 9)-minimum 2 weeks abx post negative BC. repeat BCs no growth at 24 hrs IV mag ordered to [facility] [place] MD wants DEEDEE done too not sure if/when this will happen Plan continue to watch VS, labs, micro, and med changes Original Note: Addendum entered by Eliz Fonseca 10/03/18 11:50: Pharmacy Note Subjective treating low Mag and staph bacteremia, ? endocarditits Objective Mag low and IV and PO supplementation ordered Assessment Ampicillin stopped (UTI fully treated), day 8 oxacillin IV to fully treat staph bacteremia will need 2 weeks oxacillin post neg BC or 6 wks if DEEDEE shows vegetation CIWA protocol stopped, tele stopped Plan monitor lytes, BC results and DEEDEE results. pt has off/on issue with swallowing tablets, nursing to let us know if we need alternate form Original Note: Addendum entered by Eliz Fonseca 10/02/18 11:11: Pharmacy Note Subjective waitign for ECHO results, may get EGD and possible DEEDEE. may need 2wks abx if MSSA bacteremia or 6wks of vegetation Objective CIWA 0, CDIFF test negative, Mag 1.1, K WNL, Assessment oxacillin and ampicillin IV continue, Mag bolus ordered Plan Md awaiting final sens on org 2 from Original Note: Addendum entered by Bryant Adair III 10/01/18 09:37: Pharmacy Note Subjective Experinecing diarrhea, (? C-diff) IV ABX continue x 4 weeks Objective CIWA-1 HR-103 K+4.0 Ca++7.2 Mag-1.1 H&H-down (8.3/25.2) Assessment rec'd 4Gm Mag bolus, Oxacillin & Ampicillin continue Plan MD to consult with [facility] regarding ABXs Original Note: Addendum entered by Eliz Fonseca 09/30/18 12:37: Pharmacy Note Subjective alcohold withdrawal, MSSA bacteremia needing 4 weeks IV antibiotics Objective CIWA 6-8, K 2.7, mag 1.2, Ca 6.0, BC org 1 send to oxacillin, UC holt sens Assessment oxacillin and ampicillin IV continue, PO vitamins added, Plan watch for addition of meds for QT prolongation, IV abx course, CIWA meds for d/c when appropriate Original Note: Addendum entered by Bryant Adair III 09/29/18 11:09: Pharmacy Note Subjective Blood/Urine cultures positive Staph Aureus&E-coli. Patient slowly improving speech consult ordered to evaluate swallowing. Objective VS-OK CIWA-21 k+2.6 Mag-0.7 Ca++ 5.9 SCr-0.62 wght-48.2kg BM 09/28 Assessment Mag & K+ replaced, Vanco, Zosyn DC'd changed to Oxacillin & Ampicillin. One time Banana Bag. Ativan increased for CIWA Plan Awaiting ETOH delirium to clear. watch IV ABX Original Note: Admission Pharmacy Clinical Review alcohol withdrawal, sirs. hypokalemia, hypomagnesemia Code Status Full Code Current Weight Wgt-48.5 kg Renally Cleared and Narrow Therapeutic Index Meds CrCl~ 57.5 mL/min Meds-OK QTc Value / Action Taken QTc-496 Protonix,Zosyn, BP Control, Fever BP- 112/62 Tmax- 36.5C Electrolytes reviewed Na- 132 K+4.0 Mag-1.9 DVT Prophylaxis Lovenox Opiate Usage / Scheduled Bowel Regimen Ordered No No Plt/SCr for Heparin / Enoxaparin Plts-239 SCr-0.83 INR for Warfarin INR-1.2 H/H stable, WBC/Bands H&H-9.6/27.8 wbc- 12.35 Antibiotic appropriateness Zosyn Cultures and Sensitivities Bloood-pending, Urine-pending Surgical ABX d/c within 24 hr na DM control / Insulin Dosing BG- 126 Heart Failure (Check EF%) (DB's, B-Block, Diuretics) none IV to PO Switch No Home Meds Reviewed Yes Home Meds Not Ordered Metoprolol, Lisinopril,, Klonopin,keflex, Bactrim, Comments Banyelena Bag
--- NOTE | 2018-09-27 14:16 | PDOC.CMIN ---
- If Service Date Differs Date of service: 09/27/18 Time of Service: 14:16 Care Management Initial Assess REASON FOR HOSPITALIZATION:: Alcohol withdrawal, Sepsis, SIRS PAST MEDICAL HISTORY/PAST SURGICAL HISTORY:: ETOH abuse, breast ca right, dysphagia, HTN, hypothyroidism, PAD, tobacco abuse. Surgical hx: breast biopsy, lumpectpmy, tubal ligation PREVIOUS FUNCTIONAL STATUS/SOCIAL/FAMILY SUPPORTS:: Cece lives in [place], [place]. Unable to obtain a histoy from Cece at this time. CM did leave a message for her son Aleks. ADVANCE DIRECTIVES:: None on file at [facility] Has patient been provided with information about the portal?: No Did the patient sign up for the portal?: No CODE STATUS:: Full Code INSURANCE COVERAGE / FINANCIAL ISSUES:: Medicaid CURRENT HOME/COMMUNITY SERVICES/EQUIPMENT:: Unable to confirm community supports at this time. Patient is currently being treated for acute etoh withdrawal. PRIMARY CARE PHYSICIAN:: POTENTIAL DISCHARGE NEEDS:: Discharged education, referral to community resourced including substance abuse services and follow up with pcp. PATIENT/FAMILY EDUCATION NEEDS:: Discharge education, limitations and follow up plan of care including ask me three education and self management. ANTICIPATED BARRIERS TO DISCHARGE:: Pending discharge disposition and identification of community resources. TRANSPORTATION:: Pending discharge disposition. PLAN:: Cece is currently receiving care in the ICU including IV fluids and antibiotics. She is receiving IV ativan for ETOH withdrawal and scheduled medications. Anticipate she will be discharged home when medically ready. CM will review referral to community resources once she is more alert. Including referral to [facility], and substance abuse services.
--- NOTE | 2018-09-27 14:25 | INITIAL_ITS ---
- If Service Date Differs Date of service: 09/27/18 Time of Service: 14:16 Care Management Initial Assess REASON FOR HOSPITALIZATION:: Alcohol withdrawal, Sepsis, SIRS PAST MEDICAL HISTORY/PAST SURGICAL HISTORY:: ETOH abuse, breast ca right, dysphagia, HTN, hypothyroidism, PAD, tobacco abuse. Surgical hx: breast biopsy, lumpectpmy, tubal ligation PREVIOUS FUNCTIONAL STATUS/SOCIAL/FAMILY SUPPORTS:: Cece lives in [place], [place]. Unable to obtain a histoy from Cece at this time. CM did leave a message for her son Aleks. ADVANCE DIRECTIVES:: None on file at [facility] Has patient been provided with information about the portal?: No Did the patient sign up for the portal?: No CODE STATUS:: Full Code INSURANCE COVERAGE / FINANCIAL ISSUES:: Medicaid CURRENT HOME/COMMUNITY SERVICES/EQUIPMENT:: Unable to confirm community supports at this time. Patient is currently being treated for acute etoh withdrawal. PRIMARY CARE PHYSICIAN:: POTENTIAL DISCHARGE NEEDS:: Discharged education, referral to community resourced including substance abuse services and follow up with pcp. PATIENT/FAMILY EDUCATION NEEDS:: Discharge education, limitations and follow up plan of care including ask me three education and self management. ANTICIPATED BARRIERS TO DISCHARGE:: Pending discharge disposition and identification of community resources. TRANSPORTATION:: Pending discharge disposition. PLAN:: Cece is currently receiving care in the ICU including IV fluids and antibiotics. She is receiving IV ativan for ETOH withdrawal and scheduled medications. Anticipate she will be discharged home when medically ready. CM will review referral to community resources once she is more alert. Including referral to [facility], and substance abuse services.
--- NOTE | 2018-09-27 15:21 | W.PM.PROGNOT ---
Date of Service Date of service: 09/27/18 Time of Service: 15:22 Assessment and Plan (1) Sepsis: Current visit: Yes Status: Acute Though tachycardia and altered mental status could also be related to alcohol withdrawal, evidence of pneumonia as well as lactic acidosis make sepsis likely diagnosis. Lactate normalized following initiation of antibiotic therapy and aggressive IVF resuscitation. Continue IVFs, monitor Blood Cultures, and treat supportively. Still Requiring ICU level care. (2) Alcohol withdrawal delirium: Current visit: Yes Status: Acute Continue CIWA protocol with IV ativan, along with additional aggressive and frequent IV Benzo therapy. Would benefit from standing Oxazepam and potentially Gabapentin, but current sedation and dysphagia likely prevent oral intake. Continue to monitor blood pressure, HR, temperature, and mental status. Replete lytes aggressively. (3) Abnormal EKG: Current visit: Yes Status: Acute In setting of electrolyte abnormalities, significance unclear. Minimal and equivocal troponin elevation downtrended and normalized. Continue to monitor on tele and consider further work-up in the future once stable. (4) Dysphagia: Current visit: Yes Status: Chronic With evidence of potential esophageal mass in patient with history of ETOH and Tobacco. Surgical consult with need for EGD - would prefer to wait until patient is stable from a sepsis/infectious, withdrawl standoing. Continue IV PPI and NPO status for now. (5) PAD (peripheral artery disease): Current visit: Yes Status: Chronic Patient already follows with vascular at [facility]. No signs of critical limb ischemia, but the patient does not have palpable pedal pulses on admission, which appears to be her baseline. (6) Breast cancer: Current visit: Yes Status: Chronic IDC, ER/MO +, s/p lumpectomy and XRT, noncompliant with tamoxifen therapy (7) Urinary retention: Current visit: Yes Status: Acute It is possible that this was precipitated by administration of ativan. S/p benítez - would benefit from a voiding trial once mental status clears up. (8) Normocytic anemia: Current visit: Yes Status: Acute Potentially anemia of chronic disease based on normal iron, Low TIBC and elevated Ferritin. B12, FA, and TSH all checked and normal. Monitor. (9) DVT prophylaxis: Current visit: Yes Status: Acute Lovenox SC. Subjective Interval history since last seen: 53 year old female with a prior history of ETOH abuse admitted from [facility] Emergency Department on 09/26/2018 with concern for alcohol withdrawl and sepsis from Pneumonia. Ms. Welch has a prior medical history significant for breast cancer s/p lumpectomy and XRT, noncompliant with tamoxifen therapy. She has also had dysphagia with solids, scheduled for evaluation but non-compliant with visits at [facility]. She uses tobacco and has a history of ETOH abuse. Other history also includes PAD, hypertension, and hypothyroidism. The patient was apparently driving to [place] on the day of admission when she suddenly felt palpitations, pulled over, and dialed 911. EMS found her to be in sinus tachycardia in 130's, and hypoxic with a pulse ox in the high 80's. According to reports, the patient reported chest pain to EMS. Though she was initially oriented, the patient was felt to be somewhat disoriented even on arrival to the emergency room. Her home medications were verified with her outpatient pharmacy - evidently however the patient has not been taking any of her medications. She also reported a 6 pack of beer daily drinking history, but with her last drink occuring 3 days ago. In ED, she was tachycardic, not hypoxic. About an hour later, she was noted to be agitated, restless, and suspected to have begun withdrawing from alcohol. There was no witnessed seizure activity, but there was a noticeable change in mental status. She was treated with PO and IV ativan. Her CT of the head and CTA of her chest were negative. She was found to be retaining urine (1.4 L out upon insertion of a benítez catheter). She was also noted to have a multi-focal pneumonia by CT of the chest. By the morning Ms. Welch appears obtunded, but is arousable and follows commands. She is scoring high on the CIWA Protocol. She remains afebrile but continues to be mildly tachycardic and mildly hypotensive. Exam Narrative Exam Narrative: General: Obtunded middle-aged female, appears older than her age, moaning to/withdraws from pain, squeezing my hand on command Neurological: obtunded, responsive to pain, reluctantly following commands, no focal deficits Psychiatric: Difficult to assess Skin: Pale/dry, no obvious bruises/rashes. LLE 3rd digit with a tiny scab HEENT: Does not voluntarily open eyes; when I open then, FRANSISCA Jane EOMI. Holding mouth tightly shut - unable to open for oropharyngeal exam. No submandibular or cervical lymphadenopathy; no goiter or JVD. Cardiovascular: RRR, tachycardic, no murmurs, rubs, gallops Lungs: CTAB; nonlabored breathing on 2 L of NC Gastrointestinal: Abdomen soft, nontender, nondistended Genitourinary: has a benítez - urine clear yellow Extremities: no edema, clubbing or cyanosis. Bilateral feet are cool, pale; I am unable to palpate pedal pulses. Objective Objective Clinical Data: Abnormal lab results 09/26/18 09/26/18 09/26/18 Range/Units 16:30 16:30 16:30 WBC 14.99 H (4.4-10.8) k/cumm RBC 3.13 L (4.00-5.20) m/cumm Hgb 10.4 L (12.0-15.5) g/dL Hct 29.0 L (36.0-46.0) % MCH 33.2 H (27.0-33.0) pg Absolute Neutrophils 12.92 H (1.2-6.7) k/cumm Absolute Monocytes (0.11-0.7) k/cumm PT 11.6 H (9.3-10.8) sec Sodium 130 L (136-145) mmol/L Potassium 2.1 L* (3.5-5.1) mmol/L Chloride 89 L (98-107) mmol/L Carbon Dioxide 19.7 L (21.0-32.0) mmol/L Anion Gap 21.3 H (3-11) mmol/L Creatinine 1.30 H (0.55-1.02) mg/dL Glucose 120 H (70-100) mg/dL Lactate (0.6-1.4) mmol/L Calcium (8.5-10.1) mg/dL Magnesium 1.0 L (1.8-2.4) mg/dL TIBC (250-450) ug/dL Transferrin % Sat (15-50) % Ferritin (8-388) ng/mL Total Bilirubin 1.2 H (0.2-1.0) mg/dL Conjugated Bilirubin 0.71 H (0.00-0.20) mg/dL AST 67 H (15-37) U/L Troponin I (0.00-0.06) ng/mL Albumin 2.5 L (3.4-5.0) g/dL HDL Cholesterol (40-60) mg/dL Vitamin B12 (193-986) pg/mL Folate (8.6-20.0) ng/mL Urine Blood (Negative) 09/26/18 09/26/18 09/26/18 Range/Units 18:50 19:13 22:30 WBC (4.4-10.8) k/cumm RBC (4.00-5.20) m/cumm Hgb (12.0-15.5) g/dL Hct (36.0-46.0) % MCH (27.0-33.0) pg Absolute Neutrophils (1.2-6.7) k/cumm Absolute Monocytes (0.11-0.7) k/cumm PT (9.3-10.8) sec Sodium (136-145) mmol/L Potassium (3.5-5.1) mmol/L Chloride (98-107) mmol/L Carbon Dioxide (21.0-32.0) mmol/L Anion Gap (3-11) mmol/L Creatinine (0.55-1.02) mg/dL Glucose (70-100) mg/dL Lactate 3.1 H (0.6-1.4) mmol/L Calcium (8.5-10.1) mg/dL Magnesium (1.8-2.4) mg/dL TIBC (250-450) ug/dL Transferrin % Sat (15-50) % Ferritin (8-388) ng/mL Total Bilirubin (0.2-1.0) mg/dL Conjugated Bilirubin (0.00-0.20) mg/dL AST (15-37) U/L Troponin I 0.08 H (0.00-0.06) ng/mL Albumin (3.4-5.0) g/dL HDL Cholesterol (40-60) mg/dL Vitamin B12 (193-986) pg/mL Folate (8.6-20.0) ng/mL Urine Blood Moderate H (Negative) 09/27/18 09/27/18 09/27/18 Range/Units 07:23 07:23 07:23 WBC 12.35 H (4.4-10.8) k/cumm RBC 2.94 L (4.00-5.20) m/cumm Hgb 9.6 L (12.0-15.5) g/dL Hct 27.8 L (36.0-46.0) % MCH (27.0-33.0) pg Absolute Neutrophils 9.45 H (1.2-6.7) k/cumm Absolute Monocytes 0.75 H (0.11-0.7) k/cumm PT (9.3-10.8) sec Sodium 132 L (136-145) mmol/L Potassium (3.5-5.1) mmol/L Chloride 96 L (98-107) mmol/L Carbon Dioxide (21.0-32.0) mmol/L Anion Gap (3-11) mmol/L Creatinine (0.55-1.02) mg/dL Glucose 126 H (70-100) mg/dL Lactate (0.6-1.4) mmol/L Calcium 7.3 L (8.5-10.1) mg/dL Magnesium (1.8-2.4) mg/dL TIBC (250-450) ug/dL Transferrin % Sat (15-50) % Ferritin 599 H (8-388) ng/mL Total Bilirubin (0.2-1.0) mg/dL Conjugated Bilirubin 0.43 H (0.00-0.20) mg/dL AST 91 H (15-37) U/L Troponin I (0.00-0.06) ng/mL Albumin 2.3 L (3.4-5.0) g/dL HDL Cholesterol (40-60) mg/dL Vitamin B12 (193-986) pg/mL Folate (8.6-20.0) ng/mL Urine Blood (Negative) 09/27/18 09/27/18 Range/Units 07:23 07:23 WBC (4.4-10.8) k/cumm RBC (4.00-5.20) m/cumm Hgb (12.0-15.5) g/dL Hct (36.0-46.0) % MCH (27.0-33.0) pg Absolute Neutrophils (1.2-6.7) k/cumm Absolute Monocytes (0.11-0.7) k/cumm PT (9.3-10.8) sec Sodium (136-145) mmol/L Potassium (3.5-5.1) mmol/L Chloride (98-107) mmol/L Carbon Dioxide (21.0-32.0) mmol/L Anion Gap (3-11) mmol/L Creatinine (0.55-1.02) mg/dL Glucose (70-100) mg/dL Lactate (0.6-1.4) mmol/L Calcium (8.5-10.1) mg/dL Magnesium (1.8-2.4) mg/dL TIBC 153 L (250-450) ug/dL Transferrin % Sat 84 H (15-50) % Ferritin (8-388) ng/mL Total Bilirubin (0.2-1.0) mg/dL Conjugated Bilirubin (0.00-0.20) mg/dL AST (15-37) U/L Troponin I (0.00-0.06) ng/mL Albumin (3.4-5.0) g/dL HDL Cholesterol 25 L (40-60) mg/dL Vitamin B12 1404 H (193-986) pg/mL Folate > 20.0 H (8.6-20.0) ng/mL Urine Blood (Negative) Vital Signs Temperature 36.4 C L 09/27/18 11:51 Temperature Source Temporal Artery Scan 09/27/18 11:51 Pulse 103 H 09/27/18 12:30 Pulse 106 H 09/27/18 12:30 Respiratory Rate 21 09/27/18 12:30 Respiratory Effort Non-Labored 09/27/18 11:51 Respiratory Depth Normal 09/27/18 11:51 Respiratory Pattern Normal 09/27/18 11:51 Blood Pressure 104/58 L 09/27/18 12:30 Blood Pressure Mean 69 09/27/18 12:30 Blood Pressure Position Supine 09/27/18 11:51 Pulse Oximetry 97 09/27/18 12:30 Oxygen Delivery Method Room Air 09/27/18 11:51 Oxygen Flow Rate 0 09/27/18 11:51 Pain Level 0 09/27/18 07:54 Intake & Output 09/26/18 09/27/18 09/27/18 23:59 11:59 23:59 Intake Total 1378.333 / 3878.847 2557.367 / 1500.367 Output Total 2200 / 2200 2250 / 2250 Balance -821.667 / -821.667 -749.633 / -749.633 Weight 48.5 kg 48.5 kg Intake: IV 1378.333 / 5190.117 9568.367 / 1500.367 Oral 0 / 0 Output: Urine 2200 / 2200 2250 / 2250 Other: Urine Color Pale Yellow Urine Appearance Clear Comment Pt unable to answer any questions at this time. All information derived from ED report. Benítez bag not emptied at this time. Benítez in place. Laboratory Results WBC 12.35 k/cumm (4.4-10.8) H 09/27/18 07:23 RBC 2.94 m/cumm (4.00-5.20) L 09/27/18 07:23 Hgb 9.6 g/dL (12.0-15.5) L 09/27/18 07:23 Hct 27.8 % (36.0-46.0) L 09/27/18 07:23 MCV 94.6 fL (80-95) 09/27/18 07:23 MCH 32.7 pg (27.0-33.0) 09/27/18 07:23 MCHC 34.5 g/dL (32.0-36.0) 09/27/18 07:23 RDW 13.4 % (11.7-14.6) 09/27/18 07:23 Plt Count 239 x1000/uL (130-400) 09/27/18 07:23 MPV 10.3 fL (8.0-11.0) 09/27/18 07:23 Immature Gran % 0.3 09/27/18 07:23 Neutrophils % 76.5 09/27/18 07:23 Lymphocytes % 16.8 09/27/18 07:23 Monocytes % 6.1 09/27/18 07:23 Eosinophils % 0.2 09/27/18 07:23 Basophils % 0.1 09/27/18 07:23 Absolute Neutrophils 9.45 k/cumm (1.2-6.7) H 09/27/18 07:23 Absolute Lymphocytes 2.07 k/cumm (1.2-3.4) 09/27/18 07:23 Absolute Monocytes 0.75 k/cumm (0.11-0.7) H 09/27/18 07:23 Absolute Eosinophils 0.02 k/cumm (0.0-0.7) 09/27/18 07:23 Absolute Basophils 0.01 k/cumm (0.0-0.2) 09/27/18 07:23 PT 11.6 sec (9.3-10.8) H 09/26/18 16:30 INR 1.2 (1.0-3.5) 09/26/18 16:30 APTT 22.6 sec (21.0-31.4) 09/26/18 16:30 Sodium 132 mmol/L (136-145) L 09/27/18 07:23 Potassium 4.0 mmol/L (3.5-5.1) D 09/27/18 07:23 Chloride 96 mmol/L (98-107) L 09/27/18 07:23 Carbon Dioxide 26.8 mmol/L (21.0-32.0) 09/27/18 07:23 Anion Gap 9.2 mmol/L (3-11) 09/27/18 07:23 BUN 9 mg/dL (7-18) D 09/27/18 07:23 Creatinine 0.83 mg/dL (0.55-1.02) 09/27/18 07:23 Estimated GFR/1.73 m2 >= 60.00 (mL/min/1.73m2) 09/27/18 07:23 Glucose 126 mg/dL (70-100) H 09/27/18 07:23 Lactate 1.3 mmol/L (0.6-1.4) 09/27/18 07:23 Calcium 7.3 mg/dL (8.5-10.1) L 09/27/18 07:23 Magnesium 1.9 mg/dL (1.8-2.4) 09/27/18 07:23 Iron 128 ug/dL (50-175) 09/27/18 07:23 TIBC 153 ug/dL (250-450) L 09/27/18 07:23 Transferrin % Sat 84 % (15-50) H 09/27/18 07:23 Ferritin 599 ng/mL (8-388) H 09/27/18 07:23 Total Bilirubin 0.7 mg/dL (0.2-1.0) 09/27/18 07:23 Conjugated Bilirubin 0.43 mg/dL (0.00-0.20) H 09/27/18 07:23 AST 91 U/L (15-37) H 09/27/18 07:23 ALT 19 U/L (12-78) 09/27/18 07:23 Alkaline Phosphatase 84 U/L (46-116) 09/27/18 07:23 Troponin I 0.06 ng/mL (0.00-0.06) 09/27/18 07:23 Total Protein 6.5 g/dL (6.4-8.2) 09/27/18 07:23 Albumin 2.3 g/dL (3.4-5.0) L 09/27/18 07:23 Triglycerides 114 mg/dL (30-150) 09/27/18 07:23 Total Cholesterol 116 mg/dL (50-200) 09/27/18 07:23 LDL Cholesterol Direct 71 mg/dL (<100) 09/27/18 07:23 HDL Cholesterol 25 mg/dL (40-60) L 09/27/18 07:23 Vitamin B12 1404 pg/mL (193-986) H 09/27/18 07:23 Folate > 20.0 ng/mL (8.6-20.0) H 09/27/18 07:23 TSH Cancelled 09/26/18 17:58 Urine Color Yellow (Yellow) 09/26/18 18:50 Urine Clarity Sl cloudy 09/26/18 18:50 Urine pH 7.0 (5-8) 09/26/18 18:50 Ur Specific [place] 1.015 (1.005-1.025) 09/26/18 18:50 Urine Protein Negative mg/dL (Negative) 09/26/18 18:50 Urine Ketones Negative mg/dL (Negative) 09/26/18 18:50 Urine Blood Moderate (Negative) H 09/26/18 18:50 Urine Nitrite Negative (Negative) 09/26/18 18:50 Urine Bilirubin Negative (Negative) 09/26/18 18:50 Urine Urobilinogen 0.2 EU/dL (Up TO 0.2) 09/26/18 18:50 Ur Leukocyte Esterase Negative (Negative) 09/26/18 18:50 Urine RBC 0-2 (0-2) 09/26/18 18:50 Urine WBC 3-5 HPF (0-5) 09/26/18 18:50 Ur Epithelial Cells Few HPF (Negative) 09/26/18 18:50 Urine Crystals Negative HPF (Negative) 09/26/18 18:50 Urine Bacteria Packed HPF (Negative) 09/26/18 18:50 Urine Casts Negative LPF (Negative) 09/26/18 18:50 Urine Mucus Negative (Negative) 09/26/18 18:50 Ur Culture Indicated? Yes 09/26/18 18:50 Urine Glucose Negative mg/dL (Negative) 09/26/18 18:50 Urine Opiates Screen Negative (Negative) 09/26/18 18:50 Urine Methadone Screen Negative (Negative) 09/26/18 18:50 Ur Barbiturates Screen Negative (Negative) 09/26/18 18:50 Ur Tricyclics Screen Negative (Negative) 09/26/18 18:50 Ur Amphetamines Screen Negative (Negative) 09/26/18 18:50 U Benzodiazepines Scrn Negative (Negative) 09/26/18 18:50 Urine Cocaine Screen Negative (Negative) 09/26/18 18:50 Ur THC Screen Negative (Negative) 09/26/18 18:50 Ethyl Alcohol < 3.0 mg/dL (<3) 09/26/18 16:30
--- NOTE | 2018-09-27 15:31 | PGE_ITS ---
Date of Service Date of service: 09/27/18 Time of Service: 15:22 Assessment and Plan (1) Sepsis: Current visit: Yes Status: Acute Though tachycardia and altered mental status could also be related to alcohol withdrawal, evidence of pneumonia as well as lactic acidosis make sepsis likely diagnosis. Lactate normalized following initiation of antibiotic therapy and aggressive IVF resuscitation. Continue IVFs, monitor Blood Cultures, and treat supportively. Still Requiring ICU level care. (2) Alcohol withdrawal delirium: Current visit: Yes Status: Acute Continue CIWA protocol with IV ativan, along with additional aggressive and frequent IV Benzo therapy. Would benefit from standing Oxazepam and potentially Gabapentin, but current sedation and dysphagia likely prevent oral intake. Continue to monitor blood pressure, HR, temperature, and mental status. Replete lytes aggressively. (3) Abnormal EKG: Current visit: Yes Status: Acute In setting of electrolyte abnormalities, significance unclear. Minimal and equivocal troponin elevation downtrended and normalized. Continue to monitor on tele and consider further work-up in the future once stable. (4) Dysphagia: Current visit: Yes Status: Chronic With evidence of potential esophageal mass in patient with history of ETOH and Tobacco. Surgical consult with need for EGD - would prefer to wait until patient is stable from a sepsis/infectious, withdrawl standoing. Continue IV PPI and NPO status for now. (5) PAD (peripheral artery disease): Current visit: Yes Status: Chronic Patient already follows with vascular at [facility]. No signs of critical limb ischemia, but the patient does not have palpable pedal pulses on admission, which appears to be her baseline. (6) Breast cancer: Current visit: Yes Status: Chronic IDC, ER/MS +, s/p lumpectomy and XRT, noncompliant with tamoxifen therapy (7) Urinary retention: Current visit: Yes Status: Acute It is possible that this was precipitated by administration of ativan. S/ p benítez - would benefit from a voiding trial once mental status clears up. (8) Normocytic anemia: Current visit: Yes Status: Acute Potentially anemia of chronic disease based on normal iron, Low TIBC and elevated Ferritin. B12, FA, and TSH all checked and normal. Monitor. (9) DVT prophylaxis: Current visit: Yes Status: Acute Lovenox SC. Subjective Interval history since last seen: 53 year old female with a prior history of ETOH abuse admitted from [facility] Emergency Department on 09/26/2018 with concern for alcohol withdrawl and sepsis from Pneumonia. Ms. Welch has a prior medical history significant for breast cancer s/p lumpectomy and XRT, noncompliant with tamoxifen therapy. She has also had dysphagia with solids, scheduled for evaluation but non-compliant with visits at [facility]. She uses tobacco and has a history of ETOH abuse. Other history also includes PAD, hypertension, and hypothyroidism. The patient was apparently driving to [place] on the day of admission when she suddenly felt palpitations , pulled over, and dialed 911. EMS found her to be in sinus tachycardia in 130's , and hypoxic with a pulse ox in the high 80's. According to reports, the patient reported chest pain to EMS. Though she was initially oriented, the patient was felt to be somewhat disoriented even on arrival to the emergency room. Her home medications were verified with her outpatient pharmacy - evidently however the patient has not been taking any of her medications. She also reported a 6 pack of beer daily drinking history, but with her last drink occuring 3 days ago. In ED, she was tachycardic, not hypoxic. About an hour later, she was noted to be agitated, restless, and suspected to have begun withdrawing from alcohol. There was no witnessed seizure activity, but there was a noticeable change in mental status. She was treated with PO and IV ativan. Her CT of the head and CTA of her chest were negative. She was found to be retaining urine (1.4 L out upon insertion of a benítez catheter). She was also noted to have a multi-focal pneumonia by CT of the chest. By the morning Ms. Welch appears obtunded, but is arousable and follows commands. She is scoring high on the CIWA Protocol. She remains afebrile but continues to be mildly tachycardic and mildly hypotensive. Exam Narrative Exam Narrative: General: Obtunded middle-aged female, appears older than her age, moaning to/withdraws from pain, squeezing my hand on command Neurological: obtunded, responsive to pain, reluctantly following commands, no focal deficits Psychiatric: Difficult to assess Skin: Pale/dry, no obvious bruises/rashes. LLE 3rd digit with a tiny scab HEENT: Does not voluntarily open eyes; when I open then, FRANSISCA Jane EOMI. Holding mouth tightly shut - unable to open for oropharyngeal exam. No submandibular or cervical lymphadenopathy; no goiter or JVD. Cardiovascular: RRR, tachycardic, no murmurs, rubs, gallops Lungs: CTAB; nonlabored breathing on 2 L of NC Gastrointestinal: Abdomen soft, nontender, nondistended Genitourinary: has a benítez - urine clear yellow Extremities: no edema, clubbing or cyanosis. Bilateral feet are cool, pale; I am unable to palpate pedal pulses. Objective Objective Clinical Data: Abnormal lab results 09/26/18 09/26/18 09/26/18 Range/Units 16:30 16:30 16:30 WBC 14.99 H (4.4-10.8) k/cumm RBC 3.13 L (4.00-5.20) m/cumm Hgb 10.4 L (12.0-15.5) g/dL Hct 29.0 L (36.0-46.0) % MCH 33.2 H (27.0-33.0) pg Absolute Neutrophils 12.92 H (1.2-6.7) k/cumm Absolute Monocytes (0.11-0.7) k/cumm PT 11.6 H (9.3-10.8) sec Sodium 130 L (136-145) mmol/L Potassium 2.1 L* (3.5-5.1) mmol/L Chloride 89 L (98-107) mmol/L Carbon Dioxide 19.7 L (21.0-32.0) mmol/L Anion Gap 21.3 H (3-11) mmol/L Creatinine 1.30 H (0.55-1.02) mg/dL Glucose 120 H (70-100) mg/dL Lactate (0.6-1.4) mmol/L Calcium (8.5-10.1) mg/dL Magnesium 1.0 L (1.8-2.4) mg/dL TIBC (250-450) ug/dL Transferrin % Sat (15-50) % Ferritin (8-388) ng/mL Total Bilirubin 1.2 H (0.2-1.0) mg/dL Conjugated Bilirubin 0.71 H (0.00-0.20) mg/dL AST 67 H (15-37) U/L Troponin I (0.00-0.06) ng/mL Albumin 2.5 L (3.4-5.0) g/dL HDL Cholesterol (40-60) mg/dL Vitamin B12 (193-986) pg/mL Folate (8.6-20.0) ng/mL Urine Blood (Negative) 09/26/18 09/26/18 09/26/18 Range/Units 18:50 19:13 22:30 WBC (4.4-10.8) k/cumm RBC (4.00-5.20) m/cumm Hgb (12.0-15.5) g/dL Hct (36.0-46.0) % MCH (27.0-33.0) pg Absolute Neutrophils (1.2-6.7) k/cumm Absolute Monocytes (0.11-0.7) k/cumm PT (9.3-10.8) sec Sodium (136-145) mmol/L Potassium (3.5-5.1) mmol/L Chloride (98-107) mmol/L Carbon Dioxide (21.0-32.0) mmol/L Anion Gap (3-11) mmol/L Creatinine (0.55-1.02) mg/dL Glucose (70-100) mg/dL Lactate 3.1 H (0.6-1.4) mmol/L Calcium (8.5-10.1) mg/dL Magnesium (1.8-2.4) mg/dL TIBC (250-450) ug/dL Transferrin % Sat (15-50) % Ferritin (8-388) ng/mL Total Bilirubin (0.2-1.0) mg/dL Conjugated Bilirubin (0.00-0.20) mg/dL AST (15-37) U/L Troponin I 0.08 H (0.00-0.06) ng/mL Albumin (3.4-5.0) g/dL HDL Cholesterol (40-60) mg/dL Vitamin B12 (193-986) pg/mL Folate (8.6-20.0) ng/mL Urine Blood Moderate H (Negative) 09/27/18 09/27/18 09/27/18 Range/Units 07:23 07:23 07:23 WBC 12.35 H (4.4-10.8) k/cumm RBC 2.94 L (4.00-5.20) m/cumm Hgb 9.6 L (12.0-15.5) g/dL Hct 27.8 L (36.0-46.0) % MCH (27.0-33.0) pg Absolute Neutrophils 9.45 H (1.2-6.7) k/cumm Absolute Monocytes 0.75 H (0.11-0.7) k/cumm PT (9.3-10.8) sec Sodium 132 L (136-145) mmol/L Potassium (3.5-5.1) mmol/L Chloride 96 L (98-107) mmol/L Carbon Dioxide (21.0-32.0) mmol/L Anion Gap (3-11) mmol/L Creatinine (0.55-1.02) mg/dL Glucose 126 H (70-100) mg/dL Lactate (0.6-1.4) mmol/L Calcium 7.3 L (8.5-10.1) mg/dL Magnesium (1.8-2.4) mg/dL TIBC (250-450) ug/dL Transferrin % Sat (15-50) % Ferritin 599 H (8-388) ng/mL Total Bilirubin (0.2-1.0) mg/dL Conjugated Bilirubin 0.43 H (0.00-0.20) mg/dL AST 91 H (15-37) U/L Troponin I (0.00-0.06) ng/mL Albumin 2.3 L (3.4-5.0) g/dL HDL Cholesterol (40-60) mg/dL Vitamin B12 (193-986) pg/mL Folate (8.6-20.0) ng/mL Urine Blood (Negative) 09/27/18 09/27/18 Range/Units 07:23 07:23 WBC (4.4-10.8) k/cumm RBC (4.00-5.20) m/cumm Hgb (12.0-15.5) g/dL Hct (36.0-46.0) % MCH (27.0-33.0) pg Absolute Neutrophils (1.2-6.7) k/cumm Absolute Monocytes (0.11-0.7) k/cumm PT (9.3-10.8) sec Sodium (136-145) mmol/L Potassium (3.5-5.1) mmol/L Chloride (98-107) mmol/L Carbon Dioxide (21.0-32.0) mmol/L Anion Gap (3-11) mmol/L Creatinine (0.55-1.02) mg/dL Glucose (70-100) mg/dL Lactate (0.6-1.4) mmol/L Calcium (8.5-10.1) mg/dL Magnesium (1.8-2.4) mg/dL TIBC 153 L (250-450) ug/dL Transferrin % Sat 84 H (15-50) % Ferritin (8-388) ng/mL Total Bilirubin (0.2-1.0) mg/dL Conjugated Bilirubin (0.00-0.20) mg/dL AST (15-37) U/L Troponin I (0.00-0.06) ng/mL Albumin (3.4-5.0) g/dL HDL Cholesterol 25 L (40-60) mg/dL Vitamin B12 1404 H (193-986) pg/mL Folate > 20.0 H (8.6-20.0) ng/mL Urine Blood (Negative) Vital Signs Temperature 36.4 C L 09/27/18 11:51 Temperature Source Temporal Artery Scan 09/27/18 11:51 Pulse 103 H 09/27/18 12:30 Pulse 106 H 09/27/18 12:30 Respiratory Rate 21 09/27/18 12:30 Respiratory Effort Non-Labored 09/27/18 11:51 Respiratory Depth Normal 09/27/18 11:51 Respiratory Pattern Normal 09/27/18 11:51 Blood Pressure 104/58 L 09/27/18 12:30 Blood Pressure Mean 69 09/27/18 12:30 Blood Pressure Position Supine 09/27/18 11:51 Pulse Oximetry 97 09/27/18 12:30 Oxygen Delivery Method Room Air 09/27/18 11:51 Oxygen Flow Rate 0 09/27/18 11:51 Pain Level 0 09/27/18 07:54 Intake & Output 09/26/18 09/27/18 09/27/18 23:59 11:59 23:59 Intake Total 1378.333 / 6326.062 4550.367 / 1500.367 Output Total 2200 / 2200 2250 / 2250 Balance -821.667 / -821.667 -749.633 / -749.633 Weight 48.5 kg 48.5 kg Intake: IV 1378.333 / 2596.497 8076.367 / 1500.367 Oral 0 / 0 Output: Urine 2200 / 2200 2250 / 2250 Other: Urine Color Pale Yellow Urine Appearance Clear Comment Pt unable to answer any questions at this time. All information derived from ED report. Benítez bag not emptied at this time. Benítez in place. Laboratory Results WBC 12.35 k/cumm (4.4-10.8) H 09/27/18 07:23 RBC 2.94 m/cumm (4.00-5.20) L 09/27/18 07:23 Hgb 9.6 g/dL (12.0-15.5) L 09/27/18 07:23 Hct 27.8 % (36.0-46.0) L 09/27/18 07:23 MCV 94.6 fL (80-95) 09/27/18 07:23 MCH 32.7 pg (27.0-33.0) 09/27/18 07:23 MCHC 34.5 g/dL (32.0-36.0) 09/27/18 07:23 RDW 13.4 % (11.7-14.6) 09/27/18 07:23 Plt Count 239 x1000/uL (130-400) 09/27/18 07:23 MPV 10.3 fL (8.0-11.0) 09/27/18 07:23 Immature Gran % 0.3 09/27/18 07:23 Neutrophils % 76.5 09/27/18 07:23 Lymphocytes % 16.8 09/27/18 07:23 Monocytes % 6.1 09/27/18 07:23 Eosinophils % 0.2 09/27/18 07:23 Basophils % 0.1 09/27/18 07:23 Absolute Neutrophils 9.45 k/cumm (1.2-6.7) H 09/27/18 07:23 Absolute Lymphocytes 2.07 k/cumm (1.2-3.4) 09/27/18 07:23 Absolute Monocytes 0.75 k/cumm (0.11-0.7) H 09/27/18 07:23 Absolute Eosinophils 0.02 k/cumm (0.0-0.7) 09/27/18 07:23 Absolute Basophils 0.01 k/cumm (0.0-0.2) 09/27/18 07:23 PT 11.6 sec (9.3-10.8) H 09/26/18 16:30 INR 1.2 (1.0-3.5) 09/26/18 16:30 APTT 22.6 sec (21.0-31.4) 09/26/18 16:30 Sodium 132 mmol/L (136-145) L 09/27/18 07:23 Potassium 4.0 mmol/L (3.5-5.1) D 09/27/18 07:23 Chloride 96 mmol/L (98-107) L 09/27/18 07:23 Carbon Dioxide 26.8 mmol/L (21.0-32.0) 09/27/18 07:23 Anion Gap 9.2 mmol/L (3-11) 09/27/18 07:23 BUN 9 mg/dL (7-18) D 09/27/18 07:23 Creatinine 0.83 mg/dL (0.55-1.02) 09/27/18 07:23 Estimated GFR/1.73 m2 >= 60.00 (mL/min/1.73m2) 09/27/18 07:23 Glucose 126 mg/dL (70-100) H 09/27/18 07:23 Lactate 1.3 mmol/L (0.6-1.4) 09/27/18 07:23 Calcium 7.3 mg/dL (8.5-10.1) L 09/27/18 07:23 Magnesium 1.9 mg/dL (1.8-2.4) 09/27/18 07:23 Iron 128 ug/dL (50-175) 09/27/18 07:23 TIBC 153 ug/dL (250-450) L 09/27/18 07:23 Transferrin % Sat 84 % (15-50) H 09/27/18 07:23 Ferritin 599 ng/mL (8-388) H 09/27/18 07:23 Total Bilirubin 0.7 mg/dL (0.2-1.0) 09/27/18 07:23 Conjugated Bilirubin 0.43 mg/dL (0.00-0.20) H 09/27/18 07:23 AST 91 U/L (15-37) H 09/27/18 07:23 ALT 19 U/L (12-78) 09/27/18 07:23 Alkaline Phosphatase 84 U/L (46-116) 09/27/18 07:23 Troponin I 0.06 ng/mL (0.00-0.06) 09/27/18 07:23 Total Protein 6.5 g/dL (6.4-8.2) 09/27/18 07:23 Albumin 2.3 g/dL (3.4-5.0) L 09/27/18 07:23 Triglycerides 114 mg/dL (30-150) 09/27/18 07:23 Total Cholesterol 116 mg/dL (50-200) 09/27/18 07:23 LDL Cholesterol Direct 71 mg/dL (<100) 09/27/18 07:23 HDL Cholesterol 25 mg/dL (40-60) L 09/27/18 07:23 Vitamin B12 1404 pg/mL (193-986) H 09/27/18 07:23 Folate > 20.0 ng/mL (8.6-20.0) H 09/27/18 07:23 TSH Cancelled 09/26/18 17:58 Urine Color Yellow (Yellow) 09/26/18 18:50 Urine Clarity Sl cloudy 09/26/18 18:50 Urine pH 7.0 (5-8) 09/26/18 18:50 Ur Specific [place] 1.015 (1.005-1.025) 09/26/18 18:50 Urine Protein Negative mg/dL (Negative) 09/26/18 18:50 Urine Ketones Negative mg/dL (Negative) 09/26/18 18:50 Urine Blood Moderate (Negative) H 09/26/18 18:50 Urine Nitrite Negative (Negative) 09/26/18 18:50 Urine Bilirubin Negative (Negative) 09/26/18 18:50 Urine Urobilinogen 0.2 EU/dL (Up TO 0.2) 09/26/18 18:50 Ur Leukocyte Esterase Negative (Negative) 09/26/18 18:50 Urine RBC 0-2 (0-2) 09/26/18 18:50 Urine WBC 3-5 HPF (0-5) 09/26/18 18:50 Ur Epithelial Cells Few HPF (Negative) 09/26/18 18:50 Urine Crystals Negative HPF (Negative) 09/26/18 18:50 Urine Bacteria Packed HPF (Negative) 09/26/18 18:50 Urine Casts Negative LPF (Negative) 09/26/18 18:50 Urine Mucus Negative (Negative) 09/26/18 18:50 Ur Culture Indicated? Yes 09/26/18 18:50 Urine Glucose Negative mg/dL (Negative) 09/26/18 18:50 Urine Opiates Screen Negative (Negative) 09/26/18 18:50 Urine Methadone Screen Negative (Negative) 09/26/18 18:50 Ur Barbiturates Screen Negative (Negative) 09/26/18 18:50 Ur Tricyclics Screen Negative (Negative) 09/26/18 18:50 Ur Amphetamines Screen Negative (Negative) 09/26/18 18:50 U Benzodiazepines Scrn Negative (Negative) 09/26/18 18:50 Urine Cocaine Screen Negative (Negative) 09/26/18 18:50 Ur THC Screen Negative (Negative) 09/26/18 18:50 Ethyl Alcohol < 3.0 mg/dL (<3) 09/26/18 16:30
[2018-09-27] MEDS: VANCOMYCIN 750 MG in Normal Saline 250 ML 250 MG IV (16:45)
[2018-09-27] MEDS: Normal Saline 1,000 ML 150 ML IV (17:45)
[2018-09-27] MEDS: Pantoprazole 40 MG VIAL IVP (22:30)
[2018-09-27] MEDS: Enoxaparin 30 MG/0.3 ML SYR 40 MG SC (22:31)
[2018-09-28] VITALS (85 sets, daily range): BP systolic 101–157; BP diastolic 62–97; PULSE 64–137; RESP 14–41; TEMP 35.6–37.2; O2SAT 95–100
[2018-09-28] MEDS: LORazepam 2 MG/ML VIAL 0.5 MG IVP (00:29)
[2018-09-28] MEDS: VANCOMYCIN 750 MG in Normal Saline 250 ML 250 MG IV ×3 (00:31→16:50)
[2018-09-28] MEDS: Normal Saline Flush 10 ML SYR IVP ×8 (00:37→22:25)
[2018-09-28] MEDS: LORazepam 2 MG/ML VIAL 1 MG IVP ×6 (02:36→08:44)
[2018-09-28] MEDS: PIPERACILLIN/TAZO 3.375 GM in Normal Saline 50 ML IVPB ×4 (03:36→22:25)
[2018-09-28 07:24] LABS: Abs Immature Grans 0.03 k/cumm (0.0-0.09); Absolute Basophil Count 0.02 k/cumm (0.0-0.2); Absolute Eosinophil Count 0.04 k/cumm (0.0-0.7); Absolute Lymphocyte Count 1.59 k/cumm (1.2-3.4); Absolute Monocyte Count 0.55 k/cumm (0.11-0.7); Absolute Neutrophil Count 5.45 k/cumm (1.2-6.7); Basophils % 0.3; Eosinophils % 0.5; HCT 27.7 % (36.0-46.0); HGB 9.1 g/dL (12.0-15.5); Immature Grans % 0.4; Lymphocytes % 20.7; Mean Corp. HGB Concentration 32.9 g/dL (32.0-36.0); Mean Corpuscular Hemoglobin 32.3 pg (27.0-33.0); Mean Corpuscular Volume 98.2 fL (80-95); Mean Platelet Volume 10.1 fL (8.0-11.0); Monocytes % 7.2; Neutrophils % 70.9; Platelet Count 224 x1000/uL (130-400); RBC 2.82 m/cumm (4.00-5.20); RBC Distribution Width 13.8 % (11.7-14.6); White Blood Cell Count 7.68 k/cumm (4.4-10.8)
[2018-09-28 07:25] LABS: INR 1.1 (1.0-3.5); Prothrombin Time 10.6 sec (9.3-10.8)
[2018-09-28 07:39] LABS: Anion Gap 13.8 mmol/L (3-11); BUN 5 mg/dL (7-18); CO2 24.2 mmol/L (21.0-32.0); CREATININE 0.67 mg/dL (0.55-1.02); Calcium 6.5 mg/dL (8.5-10.1); Chloride 98 mmol/L (98-107); Glucose 96 mg/dL (70-100); Sodium 136 mmol/L (136-145)
[2018-09-28 07:42] LABS: Potassium 2.6 mmol/L (3.5-5.1)
[2018-09-28] MEDS: Normal Saline 1,000 ML 150 ML IV ×2 (07:53→16:25)
[2018-09-28 08:25] LABS: Diff Comment RBC Morph Reviewed; Macrocytosis 1+; Polychromasia Present
--- NOTE | 2018-09-28 08:41 | CMPROGNOTE_ITS ---
- If Service Date Differs Date of service: 09/28/18 Time of Service: 08:37 Care Management Progress Note S/O: CM met with the patient at the bedside she complains of being cold she is shaking. Her jaw is clenched and she is difficult to understand. She request that her son Yonis be contacted. Cece is able to share that she lives in [place], [place] alone. She has two sons that live in the area. She reports at baseline she is mobile, and independent. Today she appears thin and frail she has sores on her knees and lower extremities. She does not make good eye contact and she is unable to move well. She continues to have a urinary cath, she is being treated for alcohol withdrawal. Discharge plan undetermined at this time. CM will contact son as requested. CM has not received a return call from her son Aleks at this time. A: Cece is admitted with sepsis and ETOH withdrawal P: Cece is currently receiving care in the ICU including IV fluids and antibiotics. She is receiving IV ativan for ETOH withdrawal and scheduled medications. Anticipate she will be discharged home when medically ready. CM will review referral to community resources once she is more alert. Including referral to [facility], and substance abuse services.
[2018-09-28] MEDS: POTASSIUM CHLORIDE 10 MEQ/100 ML BAG 100 MEQ IVPB ×4 (09:33→14:06)
--- NOTE | 2018-09-28 09:44 | PGE_ITS ---
Date of Service Date of service: 09/28/18 Time of Service: 09:38 Assessment and Plan (1) Dysphagia: Current visit: Yes Status: Chronic 53 y/o female with h/o breast cancer, PAD, HTN, medical noncompliance and reported dysphagia who is admitted for possible pneumonia and DTs. Surgical consultation requested for EGD. Agree with recommendation for EGD per CT chest findings. However, patient is still not awake enough at this time to discuss the procedure for informed consent. Family not present at this time. EGD can be done on this admission but is non-emergent. Continue Protonix. Will re- evaluate when patient is more awake and coherent. Discussed with Dr. Spencer. Please reconsult when patient is medically cleared and ready for EGD. Subjective Interval history since last seen: Patient still on Ativan for DTs. Arouses to touch and answers questions but disoriented. Denies pain. Exam Const Limitations: altered mental status Eyes Sclera: sclerae normal Resp Effort & Inspection: normal respiratory effort Cardio Rate: regular rate Rhythm: regular rhythm GI Inspection: non-distended Palpation: soft and nontender Skin General skin exam: no rashes or lesions noted and no jaundice Objective Objective Clinical Data: Abnormal lab results 09/27/18 09/28/18 09/28/18 Range/Units 07:23 06:23 06:23 RBC 2.82 L (4.00-5.20) m/cumm Hgb 9.1 L (12.0-15.5) g/dL Hct 27.7 L (36.0-46.0) % MCV 98.2 H D (80-95) fL Potassium 2.6 L* D (3.5-5.1) mmol/L Anion Gap 13.8 H (3-11) mmol/L BUN 5 L (7-18) mg/dL Calcium 6.5 L (8.5-10.1) mg/dL HDL Cholesterol 25 L (40-60) mg/dL Vitamin B12 1404 H (193-986) pg/mL Folate > 20.0 H (8.6-20.0) ng/mL Vital Signs Temperature 36.5 C 09/28/18 03:15 Temperature Source Temporal Artery Scan 09/28/18 03:15 Pulse 89 09/28/18 06:01 Pulse 87 09/28/18 06:30 Respiratory Rate 19 09/28/18 06:30 Respiratory Effort 09/28/18 03:15 Respiratory Depth Normal 09/28/18 03:15 Respiratory Pattern Normal 09/28/18 03:15 Blood Pressure 157/70 H 09/28/18 06:01 Blood Pressure Mean 91 09/28/18 06:01 Blood Pressure Position Supine 09/28/18 03:15 Pulse Oximetry 99 09/28/18 05:44 Oxygen Delivery Method Room Air 09/28/18 00:30 Oxygen Flow Rate 0 09/28/18 00:30 Pain Level 0 09/28/18 00:30 Intake & Output 09/27/18 09/27/18 09/28/18 11:59 23:59 11:59 Intake Total 1500.367 / 1500.367 400 / 400 1300 / 1300 Output Total 2250 / 2250 900 / 900 450 / 450 Balance -749.633 / -749.633 -500 / -500 850 / 850 Weight 48.5 kg Intake: IV 1500.367 / 1500.367 400 / 400 1300 / 1300 Output: Urine 2250 / 2250 900 / 900 450 / 450 Other: Urine Color Yellow Light Tiny Yellow Urine Appearance Clear Clear Clear Comment Benítez bag not emptied at this time. benítez in place at start of shift. benítez in place, draining clear yellow urine. Laboratory Results WBC 7.68 k/cumm (4.4-10.8) D 09/28/18 06:23 RBC 2.82 m/cumm (4.00-5.20) L 09/28/18 06:23 Hgb 9.1 g/dL (12.0-15.5) L 09/28/18 06:23 Hct 27.7 % (36.0-46.0) L 09/28/18 06:23 MCV 98.2 fL (80-95) H D 09/28/18 06:23 MCH 32.3 pg (27.0-33.0) 09/28/18 06:23 MCHC 32.9 g/dL (32.0-36.0) 09/28/18 06:23 RDW 13.8 % (11.7-14.6) 09/28/18 06:23 Plt Count 224 x1000/uL (130-400) 09/28/18 06:23 MPV 10.1 fL (8.0-11.0) 09/28/18 06:23 Immature Gran % 0.4 09/28/18 06:23 Neutrophils % 70.9 09/28/18 06:23 Lymphocytes % 20.7 09/28/18 06:23 Monocytes % 7.2 09/28/18 06:23 Eosinophils % 0.5 09/28/18 06:23 Basophils % 0.3 09/28/18 06:23 Absolute Neutrophils 5.45 k/cumm (1.2-6.7) 09/28/18 06:23 Absolute Lymphocytes 1.59 k/cumm (1.2-3.4) 09/28/18 06:23 Absolute Monocytes 0.55 k/cumm (0.11-0.7) 09/28/18 06:23 Absolute Eosinophils 0.04 k/cumm (0.0-0.7) 09/28/18 06:23 Absolute Basophils 0.02 k/cumm (0.0-0.2) 09/28/18 06:23 Differential Comment Rbc morph reviewed 09/28/18 06:23 RBC Morphology See below 09/28/18 06:23 Polychromasia Present 09/28/18 06:23 Macrocytosis 1+ 09/28/18 06:23 PT 10.6 sec (9.3-10.8) 09/28/18 06:23 INR 1.1 (1.0-3.5) 09/28/18 06:23 APTT 22.6 sec (21.0-31.4) 09/26/18 16:30 Sodium 136 mmol/L (136-145) 09/28/18 06:23 Potassium 2.6 mmol/L (3.5-5.1) L* D 09/28/18 06:23 Chloride 98 mmol/L (98-107) 09/28/18 06:23 Carbon Dioxide 24.2 mmol/L (21.0-32.0) 09/28/18 06:23 Anion Gap 13.8 mmol/L (3-11) H 09/28/18 06:23 BUN 5 mg/dL (7-18) L 09/28/18 06:23 Creatinine 0.67 mg/dL (0.55-1.02) 09/28/18 06:23 Estimated GFR/1.73 m2 >= 60.00 (mL/min/1.73m2) 09/28/18 06:23 Glucose 96 mg/dL (70-100) 09/28/18 06:23 Lactate 1.3 mmol/L (0.6-1.4) 09/27/18 07:23 Calcium 6.5 mg/dL (8.5-10.1) L 09/28/18 06:23 Magnesium 1.9 mg/dL (1.8-2.4) 09/27/18 07:23 Iron 128 ug/dL (50-175) 09/27/18 07:23 TIBC 153 ug/dL (250-450) L 09/27/18 07:23 Transferrin % Sat 84 % (15-50) H 09/27/18 07:23 Ferritin 599 ng/mL (8-388) H 09/27/18 07:23 Total Bilirubin 0.7 mg/dL (0.2-1.0) 09/27/18 07:23 Conjugated Bilirubin 0.43 mg/dL (0.00-0.20) H 09/27/18 07:23 AST 91 U/L (15-37) H 09/27/18 07:23 ALT 19 U/L (12-78) 09/27/18 07:23 Alkaline Phosphatase 84 U/L (46-116) 09/27/18 07:23 Troponin I 0.06 ng/mL (0.00-0.06) 09/27/18 07:23 Total Protein 6.5 g/dL (6.4-8.2) 09/27/18 07:23 Albumin 2.3 g/dL (3.4-5.0) L 09/27/18 07:23 Triglycerides 114 mg/dL (30-150) 09/27/18 07:23 Total Cholesterol 116 mg/dL (50-200) 09/27/18 07:23 LDL Cholesterol Direct 71 mg/dL (<100) 09/27/18 07:23 HDL Cholesterol 25 mg/dL (40-60) L 09/27/18 07:23 Vitamin B12 1404 pg/mL (193-986) H 09/27/18 07:23 Folate > 20.0 ng/mL (8.6-20.0) H 09/27/18 07:23 TSH Cancelled 09/26/18 17:58 Urine Color Yellow (Yellow) 09/26/18 18:50 Urine Clarity Sl cloudy 09/26/18 18:50 Urine pH 7.0 (5-8) 09/26/18 18:50 Ur Specific [place] 1.015 (1.005-1.025) 09/26/18 18:50 Urine Protein Negative mg/dL (Negative) 09/26/18 18:50 Urine Ketones Negative mg/dL (Negative) 09/26/18 18:50 Urine Blood Moderate (Negative) H 09/26/18 18:50 Urine Nitrite Negative (Negative) 09/26/18 18:50 Urine Bilirubin Negative (Negative) 09/26/18 18:50 Urine Urobilinogen 0.2 EU/dL (Up TO 0.2) 09/26/18 18:50 Ur Leukocyte Esterase Negative (Negative) 09/26/18 18:50 Urine RBC 0-2 (0-2) 09/26/18 18:50 Urine WBC 3-5 HPF (0-5) 09/26/18 18:50 Ur Epithelial Cells Few HPF (Negative) 09/26/18 18:50 Urine Crystals Negative HPF (Negative) 09/26/18 18:50 Urine Bacteria Packed HPF (Negative) 09/26/18 18:50 Urine Casts Negative LPF (Negative) 09/26/18 18:50 Urine Mucus Negative (Negative) 09/26/18 18:50 Ur Culture Indicated? Yes 09/26/18 18:50 Urine Glucose Negative mg/dL (Negative) 09/26/18 18:50 Urine Opiates Screen Negative (Negative) 09/26/18 18:50 Urine Methadone Screen Negative (Negative) 18 18:50 Ur Barbiturates Screen Negative (Negative) 09/26/18 18:50 Ur Tricyclics Screen Negative (Negative) 09/26/18 18:50 Ur Amphetamines Screen Negative (Negative) 09/26/18 18:50 U Benzodiazepines Scrn Negative (Negative) 09/26/18 18:50 Urine Cocaine Screen Negative (Negative) 09/26/18 18:50 Ur THC Screen Negative (Negative) 09/26/18 18:50 Ethyl Alcohol < 3.0 mg/dL (<3) 09/26/18 16:30
--- NOTE | 2018-09-28 12:39 | PGE_ITS ---
Date of Service Date of service: 09/28/18 Time of Service: 12:24 Assessment and Plan (1) Sepsis: Current visit: Yes Status: Acute Patient has stabilized hemodynamically. Her white blood cell count has decreased to normal. Blood cultures are growing gram-positive cocci. I will continue her on piperacillin/tazobactam and vancomycin for ICU associated pneumonia until we have the final culture. (2) Alcohol withdrawal delirium: Current visit: Yes Status: Acute Continue CIWA protocol with IV ativan, along with additional aggressive and frequent IV Benzo therapy. She is unable to take oral therapy. Given her mental status, we will continue with ICU level care. (3) Abnormal EKG: Current visit: Yes Status: Acute In setting of electrolyte abnormalities, significance unclear. Minimal and equivocal troponin elevation downtrended and normalized. No new events. Continue to monitor on tele and consider further work-up in the future once stable. (4) Dysphagia: Current visit: Yes Status: Chronic With evidence of potential esophageal mass in patient with history of ETOH and Tobacco. Surgical consult with need for EGD - would prefer to wait until patient is stable from a sepsis/infectious, withdrawl standpoint. Continue IV PPI and NPO status for now. (5) Urinary retention: Current visit: Yes Status: Acute It is possible that this was precipitated by administration of ativan. Now has Benítez - would benefit from a voiding trial once mental status clears up. (6) Normocytic anemia: Current visit: Yes Status: Acute Potentially anemia of chronic disease based on normal iron, Low TIBC and elevated Ferritin. B12, FA, and TSH all checked and normal. Stable from yesterday. She is at risk for GI blood loss with likely esophageal mass, continue to monitor. (7) DVT prophylaxis: Current visit: Yes Status: Acute Lovenox SC. Subjective Patient reports: denies diarrhea, vomiting and fever Interval history since last seen: History limited by patient sedation. She denies pain or other complaints. Infrequent cough Given as needed Ativan at 7 and 8 AM, patient examined at 9 AM. Exam Narrative Exam Narrative: General: Obtunded middle-aged female, appears older than her age, moaning to/withdraws from pain, squeezing my hand and opens mouth on command Neurological: obtunded, responsive to pain, reluctantly following commands, no focal deficits Skin: Pale/dry, no obvious bruises/rashes. LLE knees and 3rd digit with scab HEENT: Mucous membranes dry, no oropharyngeal lesions noted, though patient unable to open mouth very wide. No icterus. Neck supple.. Cardiovascular: RRR, tachycardic, no murmurs, rubs, gallops Lungs: CTAB; nonlabored breathing on 2 L of NC Gastrointestinal: Abdomen soft, nontender, nondistended Genitourinary: has a benítez - urine clear yellow Extremities: no edema, clubbing or cyanosis. Bilateral feet are cool, pale. Objective Objective Clinical Data: Abnormal lab results 09/28/18 09/28/18 Range/Units 06:23 06:23 RBC 2.82 L (4.00-5.20) m/cumm Hgb 9.1 L (12.0-15.5) g/dL Hct 27.7 L (36.0-46.0) % MCV 98.2 H D (80-95) fL Potassium 2.6 L* D (3.5-5.1) mmol/L Anion Gap 13.8 H (3-11) mmol/L BUN 5 L (7-18) mg/dL Calcium 6.5 L (8.5-10.1) mg/dL Vital Signs Temperature 36.5 C 09/28/18 03:15 Temperature Source Temporal Artery Scan 09/28/18 03:15 Pulse 89 09/28/18 11:30 Pulse 86 09/28/18 11:30 Respiratory Rate 20 09/28/18 11:30 Respiratory Effort 09/28/18 03:15 Respiratory Depth Normal 09/28/18 03:15 Respiratory Pattern Normal 09/28/18 03:15 Blood Pressure 151/72 H 09/28/18 11:30 Blood Pressure Mean 89 09/28/18 11:30 Blood Pressure Position Supine 09/28/18 03:15 Pulse Oximetry 99 09/28/18 10:01 Oxygen Delivery Method Room Air 09/28/18 07:30 Oxygen Flow Rate 0 09/28/18 07:30 Pain Level 0 09/28/18 00:30 Intake & Output 09/27/18 09/28/18 09/28/18 23:59 11:59 23:59 Intake Total 400 / 400 1905 / 1905 Output Total 900 / 900 1250 / 1250 Balance -500 / -500 655 / 655 Intake: IV 400 / 400 1905 / 1905 Output: Urine 900 / 900 1250 / 1250 Other: Urine Color Light Tiny Light Tiny Urine Appearance Clear Clear Comment benítez in place at start of shift. benítez in place, draining clear yellow urine. Laboratory Results WBC 7.68 k/cumm (4.4-10.8) D 09/28/18 06:23 RBC 2.82 m/cumm (4.00-5.20) L 09/28/18 06:23 Hgb 9.1 g/dL (12.0-15.5) L 09/28/18 06:23 Hct 27.7 % (36.0-46.0) L 09/28/18 06:23 MCV 98.2 fL (80-95) H D 09/28/18 06:23 MCH 32.3 pg (27.0-33.0) 09/28/18 06:23 MCHC 32.9 g/dL (32.0-36.0) 09/28/18 06:23 RDW 13.8 % (11.7-14.6) 09/28/18 06:23 Plt Count 224 x1000/uL (130-400) 09/28/18 06:23 MPV 10.1 fL (8.0-11.0) 09/28/18 06:23 Immature Gran % 0.4 09/28/18 06:23 Neutrophils % 70.9 09/28/18 06:23 Lymphocytes % 20.7 09/28/18 06:23 Monocytes % 7.2 09/28/18 06:23 Eosinophils % 0.5 09/28/18 06:23 Basophils % 0.3 09/28/18 06:23 Absolute Neutrophils 5.45 k/cumm (1.2-6.7) 09/28/18 06:23 Absolute Lymphocytes 1.59 k/cumm (1.2-3.4) 09/28/18 06:23 Absolute Monocytes 0.55 k/cumm (0.11-0.7) 09/28/18 06:23 Absolute Eosinophils 0.04 k/cumm (0.0-0.7) 09/28/18 06:23 Absolute Basophils 0.02 k/cumm (0.0-0.2) 09/28/18 06:23 Differential Comment Rbc morph reviewed 09/28/18 06:23 RBC Morphology See below 09/28/18 06:23 Polychromasia Present 09/28/18 06:23 Macrocytosis 1+ 09/28/18 06:23 PT 10.6 sec (9.3-10.8) 09/28/18 06:23 INR 1.1 (1.0-3.5) 09/28/18 06:23 APTT 22.6 sec (21.0-31.4) 09/26/18 16:30 Sodium 136 mmol/L (136-145) 09/28/18 06:23 Potassium 2.6 mmol/L (3.5-5.1) L* D 09/28/18 06:23 Chloride 98 mmol/L (98-107) 09/28/18 06:23 Carbon Dioxide 24.2 mmol/L (21.0-32.0) 09/28/18 06:23 Anion Gap 13.8 mmol/L (3-11) H 09/28/18 06:23 BUN 5 mg/dL (7-18) L 09/28/18 06:23 Creatinine 0.67 mg/dL (0.55-1.02) 09/28/18 06:23 Estimated GFR/1.73 m2 >= 60.00 (mL/min/1.73m2) 09/28/18 06:23 Glucose 96 mg/dL (70-100) 09/28/18 06:23 Lactate 1.3 mmol/L (0.6-1.4) 09/27/18 07:23 Calcium 6.5 mg/dL (8.5-10.1) L 09/28/18 06:23 Magnesium 1.9 mg/dL (1.8-2.4) 09/27/18 07:23 Iron 128 ug/dL (50-175) 09/27/18 07:23 TIBC 153 ug/dL (250-450) L 09/27/18 07:23 Transferrin % Sat 84 % (15-50) H 09/27/18 07:23 Ferritin 599 ng/mL (8-388) H 09/27/18 07:23 Total Bilirubin 0.7 mg/dL (0.2-1.0) 09/27/18 07:23 Conjugated Bilirubin 0.43 mg/dL (0.00-0.20) H 09/27/18 07:23 AST 91 U/L (15-37) H 09/27/18 07:23 ALT 19 U/L (12-78) 09/27/18 07:23 Alkaline Phosphatase 84 U/L (46-116) 09/27/18 07:23 Troponin I 0.06 ng/mL (0.00-0.06) 09/27/18 07:23 Total Protein 6.5 g/dL (6.4-8.2) 09/27/18 07:23 Albumin 2.3 g/dL (3.4-5.0) L 09/27/18 07:23 Triglycerides 114 mg/dL (30-150) 09/27/18 07:23 Total Cholesterol 116 mg/dL (50-200) 09/27/18 07:23 LDL Cholesterol Direct 71 mg/dL (<100) 09/27/18 07:23 HDL Cholesterol 25 mg/dL (40-60) L 09/27/18 07:23 Vitamin B12 1404 pg/mL (193-986) H 09/27/18 07:23 Folate > 20.0 ng/mL (8.6-20.0) H 09/27/18 07:23 TSH Cancelled 09/26/18 17:58 Urine Color Yellow (Yellow) 09/26/18 18:50 Urine Clarity Sl cloudy 09/26/18 18:50 Urine pH 7.0 (5-8) 09/26/18 18:50 Ur Specific [place] 1.015 (1.005-1.025) 09/26/18 18:50 Urine Protein Negative mg/dL (Negative) 09/26/18 18:50 Urine Ketones Negative mg/dL (Negative) 09/26/18 18:50 Urine Blood Moderate (Negative) H 09/26/18 18:50 Urine Nitrite Negative (Negative) 09/26/18 18:50 Urine Bilirubin Negative (Negative) 09/26/18 18:50 Urine Urobilinogen 0.2 EU/dL (Up TO 0.2) 09/26/18 18:50 Ur Leukocyte Esterase Negative (Negative) 09/26/18 18:50 Urine RBC 0-2 (0-2) 09/26/18 18:50 Urine WBC 3-5 HPF (0-5) 09/26/18 18:50 Ur Epithelial Cells Few HPF (Negative) 09/26/18 18:50 Urine Crystals Negative HPF (Negative) 09/26/18 18:50 Urine Bacteria Packed HPF (Negative) 09/26/18 18:50 Urine Casts Negative LPF (Negative) 09/26/18 18:50 Urine Mucus Negative (Negative) 09/26/18 18:50 Ur Culture Indicated? Yes 09/26/18 18:50 Urine Glucose Negative mg/dL (Negative) 09/26/18 18:50 Urine Opiates Screen Negative (Negative) 09/26/18 18:50 Urine Methadone Screen Negative (Negative) 09/26/18 18:50 Ur Barbiturates Screen Negative (Negative) 09/26/18 18:50 Ur Tricyclics Screen Negative (Negative) 09/26/18 18:50 Ur Amphetamines Screen Negative (Negative) 09/26/18 18:50 U Benzodiazepines Scrn Negative (Negative) 09/26/18 18:50 Urine Cocaine Screen Negative (Negative) 09/26/18 18:50 Ur THC Screen Negative (Negative) 09/26/18 18:50 Ethyl Alcohol < 3.0 mg/dL (<3) 09/26/18 16:30
[2018-09-28] MEDS: LORazepam 2 MG/ML VIAL IVP ×2 (16:26→19:34)
[2018-09-28 19:08] LABS: Vancomycin, Trough 17.2 ug/mL (10.0-20.0)
[2018-09-28] MEDS: Pantoprazole 40 MG VIAL IVP (22:24)
[2018-09-28] MEDS: Enoxaparin 40 MG/0.4 ML SYR SC (22:36)
[2018-09-29] VITALS (50 sets, daily range): BP systolic 100–170; BP diastolic 57–86; PULSE 87–129; RESP 17–31; TEMP 35.8–37.4; O2SAT 91–100
[2018-09-29] MEDS: LORazepam 2 MG/ML VIAL IVP ×3 (00:15→09:24)
[2018-09-29] MEDS: VANCOMYCIN 750 MG in Normal Saline 250 ML 250 MG IV ×2 (00:15→08:42)
[2018-09-29] MEDS: Normal Saline Flush 10 ML SYR IVP ×3 (00:17→22:07)
[2018-09-29] MEDS: Normal Saline 1,000 ML 150 ML IV (00:19)
[2018-09-29] MEDS: PIPERACILLIN/TAZO 3.375 GM in Normal Saline 50 ML IVPB ×2 (03:37→09:52)
[2018-09-29] MEDS: LORazepam 2 MG/ML VIAL 1 MG IVP (06:14)
[2018-09-29 09:26] LABS: Anion Gap 13.4 mmol/L (3-11); BUN 3 mg/dL (7-18); CO2 21.6 mmol/L (21.0-32.0); CREATININE 0.62 mg/dL (0.55-1.02); Chloride 103 mmol/L (98-107); Glucose 97 mg/dL (70-100); Sodium 138 mmol/L (136-145)
[2018-09-29 09:36] LABS: Magnesium 0.7 mg/dL (1.8-2.4)
[2018-09-29 09:41] LABS: Calcium 5.9 mg/dL (8.5-10.1); Potassium 2.6 mmol/L (3.5-5.1)
--- NOTE | 2018-09-29 09:42 | PGE_ITS ---
Date of Service Date of service: 09/29/18 Time of Service: 09:35 Assessment and Plan (1) Sepsis: Current visit: Yes Status: Acute Patient continues to be stable hemodynamically. Her white blood cell count has decreased to normal. Blood cultures are growing staph aureus, sensitivities pending. I will continue her on piperacillin/tazobactam and vancomycin pending sensitivities later today. I discussed with her the seriousness of this infection and the fact that she will need ongoing IV therapy. (2) Alcohol withdrawal delirium: Current visit: Yes Status: Acute needing less additional Ativan therapy, withdrawal symptoms improving. No current delirium. Continue CIWA protocol with IV ativan. (3) Dysphagia: Current visit: Yes Status: Chronic With evidence of potential esophageal mass in patient with history of ETOH and Tobacco. Surgical consult for EGD, but postponing until more clinically stable. Swallow study ordered for this morning as patient would like to drink and eat if possible. If she is not cleared to take oral nutrition , we may have to consider PEG tube. 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 We will continue to follow and replete her electrolytes. We may need an ionized calcium to clarify her calcium status, but that she not have symptomatic anemia currently. Swallow study as above, will also get nutrition input. Is not currently getting a banana bag so I will reorder this. (5) Urinary retention: Current visit: Yes Status: Acute It is possible that this was precipitated by administration of ativan. Now has Benítez - w will attempt removal today as mental status is improving. (6) Normocytic anemia: Current visit: Yes Status: Acute Potentially anemia of chronic disease based on normal iron, Low TIBC and elevated Ferritin. B12, FA, and TSH all checked and normal. She is at risk for GI blood loss with likely esophageal mass, continue to monitor, on PPI. (7) DVT prophylaxis: Current visit: Yes Status: Acute Lovenox SC. Subjective Patient reports: feels better; denies nausea, vomiting, shortness of breath and fever Interval history since last seen: Feeling better this morning and would like to go home. She was last given Ativan at 6:30 in the morning. She did score on CIWA overnight as well, see nursing notes. Patient denies pain, states she is very thirsty but not hungry. She denies chest pain or palpitations. She denies cough. She is not feeling anxious for cigarette. Exam Narrative Exam Narrative: General: Alert this monring, oriented x3. Conversant. NAD. Neurological: Cranial nerves including palate function grossly intact. Normal tone. Minimal tremor. Skin: Pale/dry, no obvious bruises/rashes. HEENT: Mucous membranes dry, no oropharyngeal lesions noted, patient able to open mouth wider today. No icterus. Neck supple.. Cardiovascular: Regular with some irregular beats, no murmurs, rubs, gallops Lungs: CTAB; nonlabored breathing on room air Gastrointestinal: Abdomen soft, nontender, nondistended, no masses Genitourinary: has a benítez - urine clear yellow Extremities: no edema, clubbing or cyanosis. Bilateral feet are cool, pale. Objective Objective Clinical Data: Vital Signs Temperature 36.4 C L 09/29/18 03:15 Temperature Source Tympanic 09/29/18 03:15 Pulse 98 H 09/29/18 06:02 Pulse 96 H 09/29/18 06:02 Respiratory Rate 19 09/29/18 06:02 Respiratory Effort 09/29/18 03:15 Respiratory Depth Normal 09/29/18 03:15 Respiratory Pattern Normal 09/29/18 03:15 Blood Pressure 142/86 H 09/29/18 06:02 Blood Pressure Mean 99 09/29/18 06:02 Blood Pressure Position Supine 09/28/18 20:15 Pulse Oximetry 97 09/29/18 06:02 Oxygen Delivery Method Room Air 09/28/18 23:59 Oxygen Flow Rate 0 09/28/18 23:59 Pain Level 0 09/29/18 03:15 Intake & Output 09/28/18 09/28/18 09/29/18 11:59 23:59 11:59 Intake Total 192 / 192 1700 / 1700 1300 / 1300 Output Total 1250 / 1250 1500 / 1500 950 / 950 Balance 675 / 675 200 / 200 350 / 350 Weight 50.2 kg 48.2 kg Intake: IV 1924 / 1924 1700 / 1700 1300 / 1300 Output: Urine 1250 / 1250 1500 / 1500 950 / 950 Other: Urine Color Light Tiny Yellow Yellow Urine Appearance Clear Clear Clear Comment benítez in place, draining clear yellow urine. 800cc emptied. benítez to gravity with clear, light colored yellow urine benítez to gravity with clear, light colored yellow urine Stool Occult Blood Negative Stool Size Moderate Smear Stool Characteristics Liquid Soft Brown Laboratory Results WBC 7.68 k/cumm (4.4-10.8) D 09/28/18 06:23 RBC 2.82 m/cumm (4.00-5.20) L 09/28/18 06:23 Hgb 9.1 g/dL (12.0-15.5) L 09/28/18 06:23 Hct 27.7 % (36.0-46.0) L 09/28/18 06:23 MCV 98.2 fL (80-95) H D 09/28/18 06:23 MCH 32.3 pg (27.0-33.0) 09/28/18 06:23 MCHC 32.9 g/dL (32.0-36.0) 09/28/18 06:23 RDW 13.8 % (11.7-14.6) 09/28/18 06:23 Plt Count 224 x1000/uL (130-400) 09/28/18 06:23 MPV 10.1 fL (8.0-11.0) 09/28/18 06:23 Immature Gran % 0.4 09/28/18 06:23 Neutrophils % 70.9 09/28/18 06:23 Lymphocytes % 20.7 09/28/18 06:23 Monocytes % 7.2 09/28/18 06:23 Eosinophils % 0.5 09/28/18 06:23 Basophils % 0.3 09/28/18 06:23 Absolute Neutrophils 5.45 k/cumm (1.2-6.7) 09/28/18 06:23 Absolute Lymphocytes 1.59 k/cumm (1.2-3.4) 09/28/18 06:23 Absolute Monocytes 0.55 k/cumm (0.11-0.7) 09/28/18 06:23 Absolute Eosinophils 0.04 k/cumm (0.0-0.7) 09/28/18 06:23 Absolute Basophils 0.02 k/cumm (0.0-0.2) 09/28/18 06:23 Differential Comment Rbc morph reviewed 09/28/18 06:23 RBC Morphology See below 09/28/18 06:23 Polychromasia Present 09/28/18 06:23 Macrocytosis 1+ 09/28/18 06:23 PT 10.6 sec (9.3-10.8) 09/28/18 06:23 INR 1.1 (1.0-3.5) 09/28/18 06:23 APTT 22.6 sec (21.0-31.4) 09/26/18 16:30 Sodium 136 mmol/L (136-145) 09/28/18 06:23 Potassium 2.6 mmol/L (3.5-5.1) L* D 09/28/18 06:23 Chloride 98 mmol/L (98-107) 09/28/18 06:23 Carbon Dioxide 24.2 mmol/L (21.0-32.0) 09/28/18 06:23 Anion Gap 13.8 mmol/L (3-11) H 09/28/18 06:23 BUN 5 mg/dL (7-18) L 09/28/18 06:23 Creatinine 0.67 mg/dL (0.55-1.02) 09/28/18 06:23 Estimated GFR/1.73 m2 >= 60.00 (mL/min/1.73m2) 09/28/18 06:23 Glucose 96 mg/dL (70-100) 09/28/18 06:23 Lactate 1.3 mmol/L (0.6-1.4) 09/27/18 07:23 Calcium 6.5 mg/dL (8.5-10.1) L 09/28/18 06:23 Magnesium 1.9 mg/dL (1.8-2.4) 09/27/18 07:23 Iron 128 ug/dL (50-175) 09/27/18 07:23 TIBC 153 ug/dL (250-450) L 09/27/18 07:23 Transferrin % Sat 84 % (15-50) H 09/27/18 07:23 Ferritin 599 ng/mL (8-388) H 09/27/18 07:23 Total Bilirubin 0.7 mg/dL (0.2-1.0) 09/27/18 07:23 Conjugated Bilirubin 0.43 mg/dL (0.00-0.20) H 09/27/18 07:23 AST 91 U/L (15-37) H 09/27/18 07:23 ALT 19 U/L (12-78) 09/27/18 07:23 Alkaline Phosphatase 84 U/L (46-116) 09/27/18 07:23 Troponin I 0.06 ng/mL (0.00-0.06) 09/27/18 07:23 Total Protein 6.5 g/dL (6.4-8.2) 09/27/18 07:23 Albumin 2.3 g/dL (3.4-5.0) L 09/27/18 07:23 Triglycerides 114 mg/dL (30-150) 09/27/18 07:23 Total Cholesterol 116 mg/dL (50-200) 09/27/18 07:23 LDL Cholesterol Direct 71 mg/dL (<100) 09/27/18 07:23 HDL Cholesterol 25 mg/dL (40-60) L 09/27/18 07:23 Vitamin B12 1404 pg/mL (193-986) H 09/27/18 07:23 Folate > 20.0 ng/mL (8.6-20.0) H 09/27/18 07:23 TSH Cancelled 09/26/18 17:58 Urine Color Yellow (Yellow) 09/26/18 18:50 Urine Clarity Sl cloudy 09/26/18 18:50 Urine pH 7.0 (5-8) 09/26/18 18:50 Ur Specific [place] 1.015 (1.005-1.025) 09/26/18 18:50 Urine Protein Negative mg/dL (Negative) 09/26/18 18:50 Urine Ketones Negative mg/dL (Negative) 09/26/18 18:50 Urine Blood Moderate (Negative) H 09/26/18 18:50 Urine Nitrite Negative (Negative) 09/26/18 18:50 Urine Bilirubin Negative (Negative) 09/26/18 18:50 Urine Urobilinogen 0.2 EU/dL (Up TO 0.2) 09/26/18 18:50 Ur Leukocyte Esterase Negative (Negative) 09/26/18 18:50 Urine RBC 0-2 (0-2) 09/26/18 18:50 Urine WBC 3-5 HPF (0-5) 09/26/18 18:50 Ur Epithelial Cells Few HPF (Negative) 09/26/18 18:50 Urine Crystals Negative HPF (Negative) 09/26/18 18:50 Urine Bacteria Packed HPF (Negative) 09/26/18 18:50 Urine Casts Negative LPF (Negative) 09/26/18 18:50 Urine Mucus Negative (Negative) 09/26/18 18:50 Ur Culture Indicated? Yes 09/26/18 18:50 Urine Glucose Negative mg/dL (Negative) 09/26/18 18:50 Vancomycin Trough 17.2 ug/mL (10.0-20.0) 09/28/18 16:50 Urine Opiates Screen Negative (Negative) 09/26/18 18:50 Urine Methadone Screen Negative (Negative) 09/26/18 18:50 Ur Barbiturates Screen Negative (Negative) 09/26/18 18:50 Ur Tricyclics Screen Negative (Negative) 09/26/18 18:50 Ur Amphetamines Screen Negative (Negative) 09/26/18 18:50 U Benzodiazepines Scrn Negative (Negative) 09/26/18 18:50 Urine Cocaine Screen Negative (Negative) 09/26/18 18:50 Ur THC Screen Negative (Negative) 09/26/18 18:50 Ethyl Alcohol < 3.0 mg/dL (<3) 09/26/18 16:30
[2018-09-29] MEDS: POTASSIUM CHLORIDE/D5-0.45NACL 1,000 ML 100 MEQ IV (10:39)
[2018-09-29] MEDS: MAGNESIUM SULFATE 4 GM/100 ML BAG IVPB (10:42)
[2018-09-29] MEDS: POTASSIUM CHLORIDE 10 MEQ/100 ML BAG 100 MEQ IVPB ×6 (10:42→17:57)
--- NOTE | 2018-09-29 11:26 | W.SPEECHEVAL ---
Date of service: 09/29/18 Time of Service: 10:00 Speech Therapy Evaluation Note: Referring Provider: [Dr. Spencer] BACKGROUND: [This is a 53-year-old right-handed female who was initially admitted to the ICU on 09/26/2018 for ETOH withdrawal, sepsis, pneumonia and a possible esophageal mass. The patient has been quite lethargic and often unable to show sufficient alertness/participation for any evaluation. However, at this point, she seems to be improving in that she is able to make direct eye contact and stay awake for longer periods of time. Consequently, a swallow evaluation is requested as she is currently on an n.p.o. status but wishes to be allowed to drink. The patient is able to give some amount of additional background information with regard to p.o. consistencies taken in the weeks prior to this admission. She states that she has been taking what, by description, are Thin liquids, a Dysphagia Advanced diet and whole pills with a liquid wash. When asked if she feels she has had trouble swallowing she affirms this and states that she has regurgitation of items such as bread. PMH: ETOH abuse, tobacco abuse, PAD, dysphagia with solids, breast cancer, medical noncompliance] OBJECTIVE: [ Nursing reports the following: - Temp: 36.4 - O2 sat: 97% on RA - LS: CTA-B in the presence of an antibiotic The patient is reclined in her bed. She does not make direct eye contact with me until requested to do so. Much of the time her eyes are only partially open but she does respond to questions. Some of her responses are delayed. She is appears to be quite thin. At times during the visit she shows head/neck and bilateral upper extremity intentional tremors as well as difficulty with proprioception of her upper extremities. She also shows an occasional nonproductive wet-sounding cough prior to any p. o. intake. She is A & O x 3 (person, place, event but not time) and able to follow 2-step but not 3-step directions. Oral Sensorimotor Exam The patient is totally edentulous on the upper ridge and primarily edentulous on the lower ridge, having only her anterior teeth remaining. Her dentition is in very poor shape showing multiple caries. She states that she does have occasional pain with her teeth but is not in any discomfort at this time. Oral sensation is unable to be assessed at this visit due to the patient's inability to focus on the task. Motorically, the smile is symmetrical as are forehead wrinkles. Labial and buccal strength is mildly to moderately decreased. No lingual deviation on protrusion is seen in a setting of good excursion. Lingual lateralization is within normal limits bilaterally, however, lingual rapid alternating movements are mildly to moderately decreased. Lingual strength is severely decreased bilaterally. Mandibular lateralization is within normal limits bilaterally. Velopharyngeal elevation is moderately to severely decreased bilaterally. Volitional cough is within normal limits, however, volitional throat-clear is mildly to moderately decreased. Speech intelligibility to this unfamiliar listener in a setting of mild background noise is 95% secondary to moderately to severely decreased vocal intensity. Vocal quality is within normal limits. With regard to swallowing, the following is noted: - Honey-thick liquid: Bolus control and posterior oral transit are both within normal limits. No jael signs and symptoms of aspiration or penetration are seen. Oral clearance is 100% and no oral escape is seen. - [place]-thick liquid: Results are the same as for Honey-thick liquids - Thin liquids: Results of the same as for honey thick liquids. These results are true for both single and consecutive swallows by both cup and straw. - Puree food: Bolus control and lingual palatal bolus compression. Posterior oral transit appears to be within normal limits. No jael signs and symptoms of aspiration or penetration are seen. Oral clearance is 100% and no oral escape is noted. - Mechanically Altered food: Bolus control and mastication quality are both within normal limits. Posterior oral transit appears to be within normal limits. No jael signs and symptoms of aspiration or penetration are seen. Oral clearance is 100% and oral escape is noted. - Dysphagia Advanced food: The patient uses a significantly increased amount of mastication time with this consistency but this does result in good mastication quality. Bolus control and posterior oral transit appear to be within normal limits. No jael signs and symptoms of aspiration or penetration are seen. Oral clearance is 100% and no oral escape is noted. - Pills are not assessed at this visit. The patient is noted to take very small boluses of fluids. This is despite verbal encouragement to take larger amounts. However, when it comes to liquids, the patient tends to take medium to large size boluses. The patient is observed to be able to do some self-feeding with her dominant right upper extremity,but because of the upper extremity tremors, this is somewhat challenging for her and she requires occasional assistance. The patient denies any sensation of regurgitation with all food and liquid consistencies, including white bread. INTERPRETATION: [ Patient shows a moderate oral?prep dysphagia in a setting of significant partial edentulousness and decreased alertness. She does not show clinical s/s of either a pharyngeal or esophagieal dysphagia at this time. However, considering her c/o regurgitation, there may be difficulty with esophageal transit during intake of a greater amount of solid food than what was taken at this visit. ] RECOMMENDATIONS: [ 1. Change from n.p.o. to p.o. with: - Thin liquids - Dysphagia Advanced diet with moistened fine-chopped meats - Whole pills with a liquid wash as tolerated but the following options prn: whole pills in puree, whole pills cut in half, crushed pills in puree 2. Supervised self-feeding with assist prn 3. Consider EGD to assess esophageal integrity 4. ST to monitor patient's toleration of above p.o. consistencies] Thank you for referring this patient. Jose Lyman., CCC-[employer]IDENT [employer]ER
[2018-09-29] MEDS: LORazepam 2 MG/ML VIAL 0.5 MG IVP (11:48)
[2018-09-29] MEDS: AMPICILLIN SODIUM 1 GM in Normal Saline 50 ML IVPB ×2 (11:50→17:18)
--- NOTE | 2018-09-29 13:41 | NUR.NOTE ---
Addendum entered by Qiana Carpio 09/29/18 13:42: Original Note: Done in ER.
[2018-09-29] MEDS: MAGNESIUM SULFATE 8.12 MEQ, MULTIVITAMIN 10 ML, THIAMINE 100 MG, FOLIC ACID 1 MG in Nor... 168.867 MG IV (14:44)
--- NOTE | 2018-09-29 15:32 | PDOC.CMPRO ---
- If Service Date Differs Date of service: 09/29/18 Time of Service: 15:33 Care Management Progress Note S/O: Cece is currently being cared for in the ICU she is sleeping at the time of CM visit. CM attempted to contact her son today Yonis his phone is busy and I am unable to get through. She continues to CIWA and ETOH withdrawal support. CM did contact [facility] and confirmed she has a Hematology appointment on 10/08/18 at 4:15. Cece did have a speech consult today her diet has been advanced. Cece may need a nutrition consult to review with MD. Cece has been asking to return home she is not ready for discharge at this point. She continues to receive IV antibiotics and fluids. A: Cece is a 53 year old female admitted with sepsis and etoh withdrawal. P: Cece will plan to return home when medically ready. She has follow up scheduled with Shoe Salesperson at [facility] this month. Plan to have her transport home with her family at time of discharge. Cece will be provided resources for substance abuse services in the community. CM will continue to attempt to contact family to follow up.
--- NOTE | 2018-09-29 16:05 | CMPROGNOTE_ITS ---
- If Service Date Differs Date of service: 09/29/18 Time of Service: 15:33 Care Management Progress Note S/O: Cece is currently being cared for in the ICU she is sleeping at the time of CM visit. CM attempted to contact her son today Yonis his phone is busy and I am unable to get through. She continues to CIWA and ETOH withdrawal support. CM did contact [facility] and confirmed she has a Hematology appointment on 10/08/18 at 4:15. Cece did have a speech consult today her diet has been advanced. Cece may need a nutrition consult to review with MD. Cece has been asking to return home she is not ready for discharge at this point. She continues to receive IV antibiotics and fluids. A: Ccee is a 53 year old female admitted with sepsis and etoh withdrawal. P: Cece will plan to return home when medically ready. She has follow up scheduled with Beef Selector at [facility] this [place]. Plan to have her transport home with her family at time of discharge. Cece will be provided resources for substance abuse services in the community. CM will continue to attempt to contact family to follow up.
[2018-09-29 16:30] LABS: Magnesium 2.3 mg/dL (1.8-2.4)
[2018-09-29 16:32] LABS: Anion Gap 9.8 mmol/L (3-11); BUN 3 mg/dL (7-18); CO2 24.2 mmol/L (21.0-32.0); Chloride 102 mmol/L (98-107); Glucose 125 mg/dL (70-100); Sodium 136 mmol/L (136-145)
[2018-09-29 16:35] LABS: Calcium 6.2 mg/dL (8.5-10.1); Potassium 2.7 mmol/L (3.5-5.1)
[2018-09-29] MEDS: Pantoprazole 40 MG VIAL IVP (22:08)
[2018-09-29] MEDS: Enoxaparin 40 MG/0.4 ML SYR SC (22:08)
[2018-09-30] VITALS (24 sets, daily range): BP systolic 109–141; BP diastolic 44–97; PULSE 89–143; RESP 16–27; TEMP 36.7–37.9; O2SAT 98–100
[2018-09-30] MEDS: AMPICILLIN SODIUM 1 GM in Normal Saline 50 ML IVPB ×4 (00:26→18:30)
[2018-09-30 06:53] LABS: Anion Gap 11.2 mmol/L (3-11); BUN 2 mg/dL (7-18); CO2 24.8 mmol/L (21.0-32.0); CREATININE 0.57 mg/dL (0.55-1.02); Chloride 99 mmol/L (98-107); Glucose 123 mg/dL (70-100); Magnesium 1.2 mg/dL (1.8-2.4); Sodium 135 mmol/L (136-145)
[2018-09-30 07:14] LABS: Potassium 2.7 mmol/L (3.5-5.1)
--- NOTE | 2018-09-30 07:42 | PDOC.CMPRO ---
Care Management Progress Note S/O: Cece continues to be monitored closely for ETOH withdrawal and is being evaluated using CIWA protocol. Cece continues to advocate for returning home. She remains on IV ABX and fluids at this time as reports her nutrients are severely depleted. CM encouraged Cece to continue trying to eat. Cece was lying in bed, her brother Darrel and her son, Aleks (P#[phone]) at her bedside. She was able to communicate some and reported her significant other PJ had gotten her a bed to stay in at his home. Cece resides in an apartment out in [place], [place] [address] per her son, Aleks. He reports she has multiple ongoing medical issues being complicated by ongoing alcohol and tobacco use. Cece is unable to find her car, Aleks reports he and his brother Simon have been unable to find the vehicle as well and reports the police will not assist because Aleks can not prove the vehicle is stolen. Cece also would like to find her phone manager of human resources as her phone will not turn on. CM will continue to follow. A: Cece is a 53 year old female admitted to [facility] 09/26/18 with ETOH withdrawal, SIRS, Hypokalemia and Hypomagnesemia. P: Cece will plan to return home when medically ready she will require termite control servicer antibiotics. She has follow up scheduled with Sub Plant Manager at [facility] on 10/08/18 at 4:15. Continued discussion central to substance abuse support services in the community. She will transport home via private vehicle with her family at time of discharge.
--- NOTE | 2018-09-30 07:46 | CMPROGNOTE_ITS ---
Care Management Progress Note S/O: Cece continues to be monitored closely for ETOH withdrawal and is being evaluated using CIWA protocol. Cece continues to advocate for returning home. She remains on IV ABX and fluids at this time as reports her nutrients are severely depleted. CM encouraged Cece to continue trying to eat. Cece was lying in bed, her brother Darrel and her son, Aleks (P#[phone]) at her bedside. She was able to communicate some and reported her significant other PJ had gotten her a bed to stay in at his home. Cece resides in an apartment out in [place], [place] [address] per her son, Aleks. He reports she has multiple ongoing medical issues being complicated by ongoing alcohol and tobacco use. Cece is unable to find her car, Aleks reports he and his brother Simon have been unable to find the vehicle as well and reports the police will not assist because Aleks can not prove the vehicle is stolen. Cece also would like to find her phone manager pet as her phone will not turn on. CM will continue to follow. A: Cece is a 53 year old female admitted to [facility] 09/26/18 with ETOH withdrawal , SIRS, Hypokalemia and Hypomagnesemia. P: Cece will plan to return home when medically ready she will require senior care antibiotics. She has follow up scheduled with Gas Check Pad Maker at [facility] [place]/08 at 4:15. Continued discussion central to substance abuse support services in the community. She will transport home via private vehicle with her family at time of discharge.
[2018-09-30] MEDS: MAGNESIUM SULFATE 4 GM/100 ML BAG IVPB (09:54)
[2018-09-30] MEDS: POTASSIUM CHLORIDE/D5-0.45NACL 1,000 ML 100 MEQ IV ×2 (10:04→22:15)
--- NOTE | 2018-09-30 10:16 | W.PM.PROGNOT ---
Date of Service Date of service: 09/30/18 Time of Service: 10:17 Assessment and Plan (1) Sepsis: Current visit: Yes Status: Acute Patient continues to be stable hemodynamically. Blood cultures are growing methicillin sensitive staph aureus. I transitioned to IV oxacillin to cover this. She also has E. coli and enterococcus in her urine. E. coli is highly sensitive. I am giving ampicillin to cover these 2 agents. Susceptibilities on the enterococcus still pending but the patient is clinically improving. Given MSSA bacteremia, she will need 4 weeks IV antibiotics. We will plan on repeating blood culture and getting a PICC line by the end of the week. It may be prudent to assess echocardiogram again given risk of endocarditis, though she does not have stigmata of this disease entity. She did have an echocardiogram in July. (2) Alcohol withdrawal delirium: Current visit: Yes Status: Acute Withdrawal symptoms continue to improve. No current delirium. Continue CIWA protocol with as needed IV ativan. (3) Dysphagia: Current visit: Yes Status: Chronic Now with dysphagia diet after swallow evaluation yesterday. She still is not eating much, however. We will plan EGD either here or down at [facility] when she is feeling stronger. 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 We will continue to follow and replete her electrolytes. Significant hypocalcemia likely secondary to hypomagnesemia. She is not symptomatic so will replace orally and treat low magnesium. I will get a vitamin D level as she is at risk for insufficiency. Will also get nutrition input. I have also ordered thiamine, multivitamin, folic acid. (5) Urinary retention: Current visit: Yes Status: Acute It is possible that this was precipitated by administration of ativan. Still has Benítez - attempt removal today as mental status continues to improve. (6) Normocytic anemia: Current visit: Yes Status: Acute Potentially anemia of chronic disease based on normal iron, Low TIBC and elevated Ferritin. B12, FA, and TSH all checked and normal. She is at risk for GI blood loss with likely esophageal mass, continue to monitor, on PPI. (7) DVT prophylaxis: Current visit: Yes Status: Acute Lovenox SC. Subjective Patient reports: no new complaints and voiding w/o difficulty; denies nausea, vomiting, shortness of breath and fever Interval history since last seen: 4-hour events: Antibiotics transitioned from vancomycin and Zosyn to oxacillin and ampicillin Getting IV replacement of potassium and magnesium Feeling better, but still quite fatigued. Taking fluids but not eating much per patient and nursing. Shaking is much improved. Cece confirms that she understands she has a mass in her esophagus and this needs evaluation. She would like to stop drinking and pursue treatment. Exam Narrative Exam Narrative: General: Alert this monring, oriented x3. Conversant. NAD. Neurological: Normal tone. Minimal tremor. Skin: Pale/dry, no obvious bruises/rashes. Same scabs on elbows and knees. HEENT: Mucous membranes less dry, no oropharyngeal lesions noted. Cardiovascular: Regular with some irregular beats, no murmurs, rubs, gallops Lungs: CTAB; nonlabored breathing on room air Gastrointestinal: Abdomen soft, nontender, nondistended, no masses Extremities: no edema, clubbing or cyanosis. Bilateral feet warm. Objective Objective Clinical Data: Abnormal lab results 09/29/18 09/30/18 Range/Units 16:05 06:05 Sodium 135 L (136-145) mmol/L Potassium 2.7 L* 2.7 L* (3.5-5.1) mmol/L Anion Gap 11.2 H (3-11) mmol/L BUN 3 L 2 L (7-18) mg/dL Glucose 125 H 123 H (70-100) mg/dL Calcium 6.2 L* 6.0 L* (8.5-10.1) mg/dL Magnesium 1.2 L (1.8-2.4) mg/dL Vital Signs Temperature 37 C 09/30/18 08:49 Temperature Source Rectal 09/30/18 08:49 Pulse 96 H 09/30/18 08:49 Pulse 97 H 09/30/18 04:01 Respiratory Rate 19 09/30/18 08:49 Respiratory Effort 09/30/18 08:49 Respiratory Depth Normal 09/30/18 08:49 Respiratory Pattern Normal 09/30/18 08:49 Blood Pressure 116/44 L 09/30/18 08:49 Blood Pressure Mean 68 09/30/18 08:49 Blood Pressure Position Supine 09/29/18 19:00 Pulse Oximetry 100 09/30/18 08:49 Oxygen Delivery Method Room Air 09/30/18 08:49 Oxygen Flow Rate 0 09/30/18 08:49 Pain Level 0 09/30/18 08:49 Intake & Output 09/29/18 09/29/18 09/30/18 11:59 23:59 11:59 Intake Total 1855 / 1855 3603.200 / 3603.200 1895 / 1895 Output Total 950 / 950 2325 / 2325 725 / 725 Balance 905 / 905 1278.200 / 5943.572 0680 / 1170 Weight 48.2 kg 52.8 kg Intake: IV 1855 / 1855 1753.200 / 8023.021 9055 / 1195 Oral 1850 / 1850 700 / 700 Output: Urine 950 / 950 2325 / 2325 725 / 725 Other: Urine Color Yellow Light Tiny Brown Urine Appearance Clear Clear Clear Sediment Urine Odor Normal Comment benítez to gravity with clear, light colored yellow urine output and urine dip documented under voiding assesment catheter intact Stool Size Moderate Large Small Stool Characteristics Soft Liquid Brown Brown Voiding Methods Indwelling Catheter Laboratory Results WBC 7.68 k/cumm (4.4-10.8) D 09/28/18 06:23 RBC 2.82 m/cumm (4.00-5.20) L 09/28/18 06:23 Hgb 9.1 g/dL (12.0-15.5) L 09/28/18 06:23 Hct 27.7 % (36.0-46.0) L 09/28/18 06:23 MCV 98.2 fL (80-95) H D 09/28/18 06:23 MCH 32.3 pg (27.0-33.0) 09/28/18 06:23 MCHC 32.9 g/dL (32.0-36.0) 09/28/18 06:23 RDW 13.8 % (11.7-14.6) 09/28/18 06:23 Plt Count 224 x1000/uL (130-400) 09/28/18 06:23 MPV 10.1 fL (8.0-11.0) 09/28/18 06:23 Immature Gran % 0.4 09/28/18 06:23 Neutrophils % 70.9 09/28/18 06:23 Lymphocytes % 20.7 09/28/18 06:23 Monocytes % 7.2 09/28/18 06:23 Eosinophils % 0.5 09/28/18 06:23 Basophils % 0.3 09/28/18 06:23 Absolute Neutrophils 5.45 k/cumm (1.2-6.7) 09/28/18 06:23 Absolute Lymphocytes 1.59 k/cumm (1.2-3.4) 09/28/18 06:23 Absolute Monocytes 0.55 k/cumm (0.11-0.7) 09/28/18 06:23 Absolute Eosinophils 0.04 k/cumm (0.0-0.7) 09/28/18 06:23 Absolute Basophils 0.02 k/cumm (0.0-0.2) 09/28/18 06:23 Differential Comment Rbc morph reviewed 09/28/18 06:23 RBC Morphology See below 09/28/18 06:23 Polychromasia Present 09/28/18 06:23 Macrocytosis 1+ 09/28/18 06:23 PT 10.6 sec (9.3-10.8) 09/28/18 06:23 INR 1.1 (1.0-3.5) 09/28/18 06:23 APTT 22.6 sec (21.0-31.4) 09/26/18 16:30 Sodium 135 mmol/L (136-145) L 09/30/18 06:05 Potassium 2.7 mmol/L (3.5-5.1) L* 09/30/18 06:05 Chloride 99 mmol/L (98-107) 09/30/18 06:05 Carbon Dioxide 24.8 mmol/L (21.0-32.0) 09/30/18 06:05 Anion Gap 11.2 mmol/L (3-11) H 09/30/18 06:05 BUN 2 mg/dL (7-18) L 09/30/18 06:05 Creatinine 0.57 mg/dL (0.55-1.02) 09/30/18 06:05 Estimated GFR/1.73 m2 >= 60.00 (mL/min/1.73m2) 09/30/18 06:05 Glucose 123 mg/dL (70-100) H 09/30/18 06:05 Lactate 1.3 mmol/L (0.6-1.4) 09/27/18 07:23 Calcium 6.0 mg/dL (8.5-10.1) L* 09/30/18 06:05 Magnesium 1.2 mg/dL (1.8-2.4) L 09/30/18 06:05 Iron 128 ug/dL (50-175) 09/27/18 07:23 TIBC 153 ug/dL (250-450) L 09/27/18 07:23 Transferrin % Sat 84 % (15-50) H 09/27/18 07:23 Ferritin 599 ng/mL (8-388) H 09/27/18 07:23 Total Bilirubin 0.7 mg/dL (0.2-1.0) 09/27/18 07:23 Conjugated Bilirubin 0.43 mg/dL (0.00-0.20) H 09/27/18 07:23 AST 91 U/L (15-37) H 09/27/18 07:23 ALT 19 U/L (12-78) 09/27/18 07:23 Alkaline Phosphatase 84 U/L (46-116) 09/27/18 07:23 Troponin I 0.06 ng/mL (0.00-0.06) 09/27/18 07:23 Total Protein 6.5 g/dL (6.4-8.2) 09/27/18 07:23 Albumin 2.0 g/dL (3.4-5.0) L 09/29/18 09:03 Triglycerides 114 mg/dL (30-150) 09/27/18 07:23 Total Cholesterol 116 mg/dL (50-200) 09/27/18 07:23 LDL Cholesterol Direct 71 mg/dL (<100) 09/27/18 07:23 HDL Cholesterol 25 mg/dL (40-60) L 09/27/18 07:23 Vitamin B12 1404 pg/mL (193-986) H 09/27/18 07:23 Folate > 20.0 ng/mL (8.6-20.0) H 09/27/18 07:23 TSH Cancelled 09/26/18 17:58 Urine Color Yellow (Yellow) 09/26/18 18:50 Urine Clarity Sl cloudy 09/26/18 18:50 Urine pH 7.0 (5-8) 09/26/18 18:50 Ur Specific [place] 1.015 (1.005-1.025) 09/26/18 18:50 Urine Protein Negative mg/dL (Negative) 09/26/18 18:50 Urine Ketones Negative mg/dL (Negative) 09/26/18 18:50 Urine Blood Moderate (Negative) H 09/26/18 18:50 Urine Nitrite Negative (Negative) 09/26/18 18:50 Urine Bilirubin Negative (Negative) 09/26/18 18:50 Urine Urobilinogen 0.2 EU/dL (Up TO 0.2) 09/26/18 18:50 Ur Leukocyte Esterase Negative (Negative) 09/26/18 18:50 Urine RBC 0-2 (0-2) 09/26/18 18:50 Urine WBC 3-5 HPF (0-5) 09/26/18 18:50 Ur Epithelial Cells Few HPF (Negative) 09/26/18 18:50 Urine Crystals Negative HPF (Negative) 09/26/18 18:50 Urine Bacteria Packed HPF (Negative) 09/26/18 18:50 Urine Casts Negative LPF (Negative) 09/26/18 18:50 Urine Mucus Negative (Negative) 09/26/18 18:50 Ur Culture Indicated? Yes 09/26/18 18:50 Urine Glucose Negative mg/dL (Negative) 09/26/18 18:50 Vancomycin Trough 17.2 ug/mL (10.0-20.0) 09/28/18 16:50 Urine Opiates Screen Negative (Negative) 09/26/18 18:50 Urine Methadone Screen Negative (Negative) 09/26/18 18:50 Ur Barbiturates Screen Negative (Negative) 09/26/18 18:50 Ur Tricyclics Screen Negative (Negative) 09/26/18 18:50 Ur Amphetamines Screen Negative (Negative) 09/26/18 18:50 U Benzodiazepines Scrn Negative (Negative) 09/26/18 18:50 Urine Cocaine Screen Negative (Negative) 09/26/18 18:50 Ur THC Screen Negative (Negative) 09/26/18 18:50 Ethyl Alcohol < 3.0 mg/dL (<3) 09/26/18 16:30
[2018-09-30] MEDS: Thiamine 100 MG TAB PO (10:22)
[2018-09-30] MEDS: Folic Acid 1 MG TAB PO (10:22)
[2018-09-30] MEDS: Multivitamin TAB 1 TAB PO (10:22)
--- NOTE | 2018-09-30 10:55 | CHAPLAIN ---
Cece was curled up in bed, seeming to be tired, but she did have a short conversation with me and seemed to appreciate the prayer shawl.
[2018-09-30] MEDS: Calcium Carbonate 1.5 GM TAB PO (20:02)
[2018-09-30] MEDS: Potassium Chloride 20 MEQ TABCR 40 MEQ PO (20:02)
[2018-09-30] MEDS: Enoxaparin 40 MG/0.4 ML SYR SC (22:15)
[2018-09-30] MEDS: Normal Saline Flush 10 ML SYR IVP (22:15)
[2018-09-30] MEDS: Pantoprazole 40 MG VIAL IVP (22:16)
[2018-10-01] VITALS (9 sets, daily range): BP systolic 105–140; BP diastolic 65–82; PULSE 91–124; RESP 18–27; TEMP 36.4–36.9; O2SAT 96–98
[2018-10-01] MEDS: AMPICILLIN SODIUM 1 GM in Normal Saline 50 ML IVPB ×5 (02:00→23:16)
--- NOTE | 2018-10-01 07:30 | MERGE_ITS ---
*[facility]* *[facility]* [address] [place] [address] Date of study: 10/01/2018 Transthoracic Echocardiography M-mode, complete 2D, complete spectral Doppler, and color Doppler *STUDY CONCLUSIONS* Impressions: No evidence of endocarditis, however, this cannot be ruled out by TTE, as sensitivity for this finding is < 50%. Summary: 1. Left ventricle: The cavity size was normal. Wall thickness was at the upper limits of normal. Systolic function was hyperdynamic. The estimated ejection fraction was 65-70%. There was no dynamic obstruction. Wall motion was normal; there were no regional wall motion abnormalities. 2. Aortic valve: Mild focal calcification involving the noncoronary cusp, seen on previous study.. Valve area (VTI): 2.8cm^2. Valve area (Vmax): 2.7cm^2. Valve area (Vmean): 2.7cm^2. 3. Mitral valve: There was mild regurgitation. 4. Right ventricle: The cavity size was normal. Wall thickness was normal. Systolic function was normal. 5. Pulmonic valve: Peak gradient (S): 4.5mm Hg. 6. Pulmonary arteries: Pulmonary systolic pressure was mildly increased. PA peak pressure: 42mm Hg (S). *PATIENT PRESENTATION* Height: 149.9cm ((59in) ) S/D Pressure: 134 / 65 Weight: 52.2kg ((114.8lb) ) BSA: 1.48m^2 Test start time: 07:45 AM. Test stop time: 08:30 AM. PERFORMING Unknown PERFORMING [facility] GENERAL TECHNICIAN Chloe Linda, RT (R)(CT), [facility] ORDERING Fabián Spencer REFERRING ThomasFabián nicholson *PROCEDURE DATA* Procedure information: The patient was identified by two identifiers. This study was interpreted by [facility]. Pertinent images and digital data are archived for permanent storage and are available for subsequent review. Comparison was made to the study of 07/20/2018. Study status: Routine. Transthoracic echocardiography. M-mode, complete 2D, complete spectral Doppler, and color Doppler. A Transthoracic Echocardiogram was performed. Scanning was performed from the parasternal, apical, subcostal, and suprasternal notch acoustic windows. Images were obtained using an [id number] cardiac ultrasound machine. Image quality was fair. Study completion: The patient tolerated the procedure well. History: PMH: MSSA bacteremia. Assess for endocarditis. *CARDIAC ANATOMY* Left ventricle: The cavity size was normal. Wall thickness was at the upper limits of normal. Systolic function was hyperdynamic. The estimated ejection fraction was 65-70%. There was no dynamic obstruction. Wall motion was normal; there were no regional wall motion abnormalities. Diastolic parameters were normal. Aortic valve: Trileaflet; mildly thickened leaflets. Mild focal calcification involving the noncoronary cusp, seen on previous study.. Mobility was not restricted. Doppler: Transvalvular velocity was within the normal range. There was no stenosis. There was no significant regurgitation. VTI ratio of LVOT to aortic valve: 0.92. Valve area (VTI): 2.8cm^2. Indexed valve area (VTI): 1.9cm^2/m^2. Peak velocity ratio of LVOT to aortic valve: 0.89. Valve area (Vmax): 2.7cm^2. Indexed valve area (Vmax): 1.8cm^2/m^2. Mean velocity ratio of LVOT to aortic valve: 0.89. Valve area (Vmean): 2.7cm^2. Indexed valve area (Vmean): 1.8cm^2/m^2. Mean gradient (S): 5.7mm Hg. Peak gradient (S): 12.4mm Hg. Aorta: Aortic root: The aortic root was normal in size. Mitral valve: Mildly thickened leaflets. Mobility was not restricted. Doppler: Transvalvular velocity was within the normal range. There was no evidence for stenosis. There was mild regurgitation. Valve area by pressure half-time: 5.6cm^2. Indexed valve area by pressure half-time: 3.8cm^2/m^2. Peak gradient (D): 2.9mm Hg. Left atrium: The atrium was normal in size. Right ventricle: The cavity size was normal. Wall thickness was normal. Systolic function was normal. Pulmonic valve: Poorly visualized. Doppler: Transvalvular velocity was within the normal range. There was no evidence for stenosis. There was no significant regurgitation. Peak gradient (S): 4.5mm Hg. Tricuspid valve: Poorly visualized. Doppler: Transvalvular velocity was within the normal range. There was no evidence for stenosis. There was trivial regurgitation. Pulmonary artery: Poorly visualized. Pulmonary systolic pressure was mildly increased. Right atrium: The atrium was normal in size. Pericardium: There was no pericardial effusion. Systemic veins: Inferior vena cava: The vessel was patent and normal in size. The respirophasic diameter changes were in the normal range (greater than or equal to 50%), consistent with normal central venous pressure. Baseline ECG: Normal sinus rhythm. Measurements Left ventricle Value 07/20/2018 Reference LV ID, ED, PLAX 4.3 cm 4.4 3.5 - 6.0 LV ID, ES, PLAX 2.9 cm 2.8 2.1 - 4.0 LV PW thickness, ED, PLAX 1.1 cm 1.0 LV end-diastolic volume, 46 ml 63 1-p A2C LV ejection fraction, 1-p 71 % 59 A2C LV end-diastolic volume, 60 ml 69 1-p A4C LV ejection fraction, 1-p 61 % 69 A4C LV e', lateral 0.09 m/sec 0.116 LV E/e', lateral 9 9 LV e', medial 0.072 m/sec 0.074 LV E/e', medial 12 14 LV e', average 0.081 m/sec 0.095 LV E/e', average 10 11 Ventricular septum Value 07/20/2018 Reference IVS thickness, ED, PLAX 1.0 cm 0.9 LVOT Value 07/20/2018 Reference LVOT ID, A-P 2.0 cm 2.0 LVOT area 3.1 cm^2 3.1 LVOT peak velocity, S 1.57 m/sec 1.28 LVOT mean velocity, S 1 m/sec 0.89 LVOT VTI, S 30.3 cm 26.1 LVOT peak gradient, S 9.9 mm Hg 6.5 LVOT mean gradient, S 4.6 mm Hg 3.6 Stroke volume (SV), LVOT 93 ml 80 DP Stroke index (SV/bsa), 62 ml/m^2 50 LVOT DP Aortic valve Value 07/20/2018 Reference Aortic valve peak 1.8 m/sec 1.5 velocity, S Aortic valve mean 1.12 m/sec 0.96 velocity, S Aortic valve VTI, S 33.0 cm 27.0 Aortic mean gradient, S 5.7 mm Hg 4.2 Aortic peak gradient, S 12.4 mm Hg 8.5 VTI ratio, LVOT/AV 0.92 0.97 Aortic valve area, VTI 2.8 cm^2 3 Velocity ratio, peak, 0.89 0.88 LVOT/AV Aortic valve area, peak 2.7 cm^2 2.7 velocity Velocity ratio, mean, 0.89 0.93 LVOT/AV Aortic valve area, mean 2.7 cm^2 2.8 velocity Aortic valve area/bsa, 1.8 cm^2/m^2 1.8 mean velocity Aorta Value 07/20/2018 Reference Aortic root ID, ED 2.8 cm 2.7 Ascending aorta ID, A-P, S 3.3 cm 3.3 Left atrium Value 07/20/2018 Reference LA ID, A-P, ES 3.2 cm 3.4 LA ID/bsa, A-P 2.2 cm/m^2 2.1 <=2.2 LA area, ES, A4C 16.8 cm^2 18.5 8.8 - 23.4 LA area, ES, A2C 14 cm^2 14 LA volume/bsa, ES, 1-p A4C 36 ml/m^2 32 LA volume, ES, 2-p 38 ml 42 LA volume/bsa, ES, 2-p 26 ml/m^2 26 LA/aortic root ratio 1.13 1.24 Mitral valve Value 07/20/2018 Reference Mitral E-wave peak 0.85 m/sec 1.03 velocity Mitral A-wave peak 0.76 m/sec 0.49 velocity Mitral deceleration time (L) 135 ms 116 150 - 230 Mitral pressure half-time 39 ms 34 Mitral peak gradient, D 2.9 mm Hg 4.3 Mitral E/A ratio, peak 1.11 2.11 Mitral valve area, PHT, DP 5.6 cm^2 6.5 Pulmonary arteries Value 07/20/2018 Reference PA pressure, S, DP (H) 42 mm Hg <=30 Tricuspid valve Value 07/20/2018 Reference Tricuspid regurg peak 3 m/sec 2.8 velocity Tricuspid peak RV-RA 36.8 mm Hg 32.2 gradient Right atrium Value 07/20/2018 Reference RA area, ES, A4C 9.8 cm^2 11.9 8.3 - 19.5 Systemic veins Value 07/20/2018 Reference Estimated CVP 10 mm Hg Right ventricle Value 07/20/2018 Reference RV pressure, S, DP (H) 47 mm Hg <=30 Pulmonic valve Value 07/20/2018 Reference Pulmonic peak gradient, S 4.5 mm Hg 2.7 Legend: (L) and (H) qi values outside specified reference range. I have personally reviewed the images and have reviewed and edited the reported findings. Electronically signed by Jessica Massey 10/02/2018 10:28
[2018-10-01 07:56] LABS: Abs Immature Grans 0.02 k/cumm (0.0-0.09); Absolute Basophil Count 0.01 k/cumm (0.0-0.2); Absolute Eosinophil Count 0.03 k/cumm (0.0-0.7); Absolute Lymphocyte Count 1.26 k/cumm (1.2-3.4); Absolute Monocyte Count 0.45 k/cumm (0.11-0.7); Basophils % 0.2; Eosinophils % 0.5; HCT 25.2 % (36.0-46.0); HGB 8.3 g/dL (12.0-15.5); Immature Grans % 0.4; Lymphocytes % 22.6; Mean Corp. HGB Concentration 32.9 g/dL (32.0-36.0); Mean Corpuscular Hemoglobin 32.4 pg (27.0-33.0); Mean Corpuscular Volume 98.4 fL (80-95); Monocytes % 8.1; Neutrophils % 68.2; Platelet Count 242 x1000/uL (130-400); RBC 2.56 m/cumm (4.00-5.20); RBC Distribution Width 14.6 % (11.7-14.6); White Blood Cell Count 5.57 k/cumm (4.4-10.8)
[2018-10-01 08:10] LABS: Anion Gap 8.9 mmol/L (3-11); BUN 1 mg/dL (7-18); CO2 23.1 mmol/L (21.0-32.0); CREATININE 0.63 mg/dL (0.55-1.02); Calcium 7.2 mg/dL (8.5-10.1); Chloride 102 mmol/L (98-107); Glucose 114 mg/dL (70-100); Magnesium 1.1 mg/dL (1.8-2.4); Sodium 134 mmol/L (136-145)
[2018-10-01] MEDS: Thiamine 100 MG TAB PO (08:41)
[2018-10-01] MEDS: Folic Acid 1 MG TAB PO (08:41)
[2018-10-01] MEDS: Potassium Chloride 20 MEQ TABCR 40 MEQ PO (08:41)
[2018-10-01] MEDS: Calcium Carbonate 1.5 GM TAB PO ×2 (08:41→21:04)
[2018-10-01] MEDS: Multivitamin TAB 1 TAB PO (08:41)
--- NOTE | 2018-10-01 08:54 | CMPROGNOTE_ITS ---
- If Service Date Differs Date of service: 10/01/18 Time of Service: 08:53 Care Management Progress Note S/O: Cece remains in the ICU she is clearer today, she is weepy at times. Cece remains on IV antibiotics and will need 4 weeks total to treat MSSA bacteremia. Cece will remain in the hospital for the duration of antibiotics. Plan for her to have a Picc placed once repeat blood cultures are negative. She is currently receiving antibiotics every four hours. Plan for her to have an [place] [facility] [place] and biopsy of the esophageal mass. Plan will be for her to be a down and return via ambulance after the procedure. A: Cece is a 53 year old female admitted to [facility] 09/26/18 with ETOH withdrawal , SIRS, Hypokalemia and Hypomagnesemia. P: Cece will plan to return home when medically ready she will require care home antibiotics. She has follow up scheduled with Fare Register Repairer at [facility] [place] 10/08 at 4:15. Continued discussion central to substance abuse support services in the community. She will transport home via private vehicle with her family at time of discharge.
--- NOTE | 2018-10-01 09:26 | W.SPEECHPG ---
Date of service: 10/01/18 Time of Service: 08:30 Speech Therpy Note Note: Subjective: Patient is much more alert this morning as compared to 2 days ago. Her eyes are much more open and she makes a more sustained direct eye contact with me. She is able to converse. Her responses are still somewhat delayed but less so than 48 hours ago. She continues to be treated for sepsis and ETOH withdrawal as well as malnutrition. A nutritional consult has been ordered. Objective: Nursing reports the following: - Temp: 36.9 - O2 sat: 96% on RA - LS: CTA-B in the presence of IV ABX - Prandial intake for 09/30/18: - Breakfast: 500 mls - Lunch: 240 mls, bites - Supper pills: bites and sips; 2% of meal - No outward s/s of pharyngeal dysphagia and no regurgitation at any meal yesterday. With regard to swallowing, the following is noted: - Thin liquid: Good bolus control and posterior oral transit. No jael signs and symptoms of aspiration or penetration are seen. Oral clearance is 100% and no oral escape is noted. These results are true for single and consecutive cup-sips. - Whole pills with a Thin liquid wash: Good bolus control and posterior oral transit. No jael signs and symptoms of aspiration or penetration are seen. Oral clearance is 100% and no oral escape is noted. No immediate or delayed regurgitation is seen. - Dysphagia Advanced food: Good bolus control and mastication quality. Posterior oral transit appears to be within normal limits. No jael signs and symptoms of aspiration or penetration are seen. Oral clearance is 100% and no oral escape is seen. However, about one minute after the first bolus is swallowed, the patient begins to hyper-salivate and then regurgitates about half of the bolus. After a short rest, the patient is trialed on a second bolus of a diffferent Dysphagia Advanced food item. After roughly half a minute, she again hyper-salivates and then regurgitates most of the bolus. The patient is observed to be able to independently self-feed all of the above p. o. items. Time is spent talking to the patient about a possible cause of her regurgitation. She acknowledges that after the first bolus, she did feel a 'stuck' sensation. When talking about this, she points to the center of her chest, roughly at the mid-esophagus level. We also discuss the recommendation of an endoscopy to further assess the esophagus but, in the meantime,there is the option of changing her diet to a thinner consistency in the hope that, if esophageal transit is problematic, a thinner consistency will be more successful in transiting the full length of the esophagus, therefore, minimizing regurgitation. The patient is demonstrative in stating that she does not want to do a trial of Liquidized or even Puree food but wishes to continue on her current p. o. consistency. Time is also spent in updating the java web services developer on the patient's background as well as results of this morning's ST visit. She agrees with my recommendation of starting the patient on prandial nutri-shakes. She will do a nutritional eval for the patient later today. Assessment: The patient continues to show no clinical s/s of a pharyngeal dysphagia but now shows s/s of an esophageal dysphagia. P. o. intake has continued to be minimal, even in the absence of regurgitation. Plan: - Recommend nutri-shake at each meal to increase nutritional intake with lower risk of regurgitation. - Follow up with recommendations as a result of upcoming nutritional eval. - Recommend EGD as soon as reasonably possible. - Continue ST POC. However, if lungs remain CTA-B and the patient continues to decline a diet consistency reduction, we will likely d/c ST.
--- NOTE | 2018-10-01 09:36 | PNE_ITS ---
Date of service: 10/01/18 Time of Service: 08:30 Speech Therpy Note Note: Subjective: Patient is much more alert this morning as compared to 2 days ago. Her eyes are much more open and she makes a more sustained direct eye contact with me. She is able to converse. Her responses are still somewhat delayed but less so than 48 hours ago. She continues to be treated for sepsis and ETOH withdrawal as well as malnutrition. A nutritional consult has been ordered. Objective: Nursing reports the following: - Temp: 36.9 - O2 sat: 96% on RA - LS: CTA-B in the presence of IV ABX - Prandial intake for 09/30/18: - Breakfast: 500 mls - Lunch: 240 mls, bites - Supper pills: bites and sips; 2% of meal - No outward s/s of pharyngeal dysphagia and no regurgitation at any meal yesterday. With regard to swallowing, the following is noted: - Thin liquid: Good bolus control and posterior oral transit. No jael signs and symptoms of aspiration or penetration are seen. Oral clearance is 100% and no oral escape is noted. These results are true for single and consecutive cup- sips. - Whole pills with a Thin liquid wash: Good bolus control and posterior oral transit. No jael signs and symptoms of aspiration or penetration are seen. Oral clearance is 100% and no oral escape is noted. No immediate or delayed regurgitation is seen. - Dysphagia Advanced food: Good bolus control and mastication quality. Posterior oral transit appears to be within normal limits. No jael signs and symptoms of aspiration or penetration are seen. Oral clearance is 100% and no oral escape is seen. However, about one minute after the first bolus is swallowed, the patient begins to hyper-salivate and then regurgitates about half of the bolus. After a short rest, the patient is trialed on a second bolus of a diffferent Dysphagia Advanced food item. After roughly half a minute , she again hyper-salivates and then regurgitates most of the bolus. The patient is observed to be able to independently self-feed all of the above p. o. items. Time is spent talking to the patient about a possible cause of her regurgitation. She acknowledges that after the first bolus, she did feel a ' stuck' sensation. When talking about this, she points to the center of her chest , roughly at the mid-esophagus level. We also discuss the recommendation of an endoscopy to further assess the esophagus but, in the meantime,there is the option of changing her diet to a thinner consistency in the hope that, if esophageal transit is problematic, a thinner consistency will be more successful in transiting the full length of the esophagus, therefore, minimizing regurgitation. The patient is demonstrative in stating that she does not want to do a trial of Liquidized or even Puree food but wishes to continue on her current p. o. consistency. Time is also spent in updating the rn gastroenterology on the patient's background as well as results of this morning's ST visit. She agrees with my recommendation of starting the patient on prandial nutri-shakes. She will do a nutritional eval for the patient later today. Assessment: The patient continues to show no clinical s/s of a pharyngeal dysphagia but now shows s/s of an esophageal dysphagia. P. o. intake has continued to be minimal , even in the absence of regurgitation. Plan: - Recommend nutri-shake at each meal to increase nutritional intake with lower risk of regurgitation. - Follow up with recommendations as a result of upcoming nutritional eval. - Recommend EGD as soon as reasonably possible. - Continue ST POC. However, if lungs remain CTA-B and the patient continues to decline a diet consistency reduction, we will likely d/c ST.
[2018-10-01] MEDS: MAGNESIUM SULFATE 4 GM/100 ML BAG IVPB (10:03)
--- NOTE | 2018-10-01 11:13 | W.PM.PROGNOT ---
Date of Service Date of service: 10/01/18 Time of Service: 13:52 Assessment and Plan (1) Sepsis: Current visit: Yes Status: Acute Patient continues stable hemodynamically. methicillin sensitive staph aureus, day #6 of antibiotics and day #3 IV oxacillin to cover this. She also has E. coli and enterococcus in her urine. E. coli is highly sensitive, getting ampicillin to cover these 2 agents. Plan to finish 1 week of coverage for E. coli and enterococcus, through tomorrow. Susceptibilities on the enterococcus still pending but the patient is clinically improving. Given MSSA bacteremia, she will need 4 weeks IV antibiotics. We will plan on repeating blood culture and getting a PICC line by week. With infection and a mild murmur echocardiogram done today given risk of endocarditis, though she does not have other stigmata of this disease entity. She may need a transesophageal if transthoracic is negative. ID should be consulted before discharge. (2) Alcohol withdrawal delirium: Current visit: Yes Status: Acute Withdrawal symptoms have resolved. No current delirium. (3) Dysphagia: Current visit: Yes Status: Chronic Associated with esophageal mass seen on CT scan of the chest. Now with dysphagia diet after swallow evaluation yesterday. She still is not eating much, however. See below. I discussed case with Dr. Cerna, then with [facility] GI fellow Dr. Delgado. And to have the EGD done at [facility] as an out and back procedure. This way, they have the option of doing trans-esophageal ultrasound as well as esophageal stenting if needed along with biopsy. They recommend calling transfer center Thursday morning to arrange. 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 We will continue to follow and replete her electrolytes. Significant hypocalcemia likely secondary to hypomagnesemia, has improved. She is not symptomatic so replacing orally and treating low magnesium. Continue telemetry monitoring until calcium, magnesium, and potassium are stable. Vitamin D level as she is at risk for insufficiency. Will also get nutrition input. I have also ordered thiamine, multivitamin, folic acid. (5) Alcohol dependence: Current visit: Yes Status: Acute She is motivated to stop drinking. She understands the severity of her illness. We will continue to support and offer behavioral therapy and medication therapy at discharge. (6) Urinary retention: Current visit: Yes Status: Acute It is possible that this was precipitated by administration of ativan. Romero removed yesterday without issue. (7) Normocytic anemia: Current visit: Yes Status: Acute Potentially anemia of chronic disease based on normal iron, Low TIBC and elevated Ferritin. B12, FA, and TSH all checked and normal. She is at risk for GI blood loss with likely esophageal mass, continue to monitor, on PPI. (8) DVT prophylaxis: Current visit: Yes Status: Acute Lovenox SC. Subjective Patient reports: no new complaints, tolerating liquids well and voiding w/o difficulty; denies tolerating a regular diet, nausea, vomiting, shortness of breath and fever Interval history since last seen: Events: Did not receive Ativan overnight Developed loose brown stool Self-limited SVT on telemetry overnight Romero catheter removed and voided difficulty Outpatient medications brought from home Patient feels a little better. Still quite fatigued and not much appetite. No fevers. She feels anxious about the plan with her esophageal mass. She does not want to miss her follow-up with [facility]. Some cough, not much sputum. Able to eat mashed potatoes and gravy yesterday, but spit up her aches this morning. Did tolerate some ice cream and Ensure shake. Exam Narrative Exam Narrative: General: Alert this monring, oriented x3. Conversant. Tired appearing but NAD. Neurological: Normal tone. No tremor. Skin: No rashes or bruises HEENT: Mucous membranes moist, no oropharyngeal lesions. Cardiovascular: Regular rate and rhythm, 1 out of 6 systolic murmur audible at right upper sternal border with radiation towards the neck. No rubs, gallops Lungs: CTAB except slight crackles left base that improve with deep breath; nonlabored breathing on room air Gastrointestinal: Abdomen soft, nontender, nondistended, no masses Extremities: no edema, clubbing or cyanosis. Bilateral feet warm. Objective Objective Clinical Data: Abnormal lab results 10/01/18 10/01/18 Range/Units 06:45 06:45 RBC 2.56 L (4.00-5.20) m/cumm Hgb 8.3 L (12.0-15.5) g/dL Hct 25.2 L (36.0-46.0) % MCV 98.4 H (80-95) fL Sodium 134 L (136-145) mmol/L BUN 1 L (7-18) mg/dL Glucose 114 H (70-100) mg/dL Calcium 7.2 L (8.5-10.1) mg/dL Magnesium 1.1 L (1.8-2.4) mg/dL Vital Signs Temperature 36.9 C 10/01/18 07:35 Temperature Source Temporal Artery Scan 10/01/18 07:35 Pulse 103 H 10/01/18 07:32 Pulse Rhythm Irregular 10/01/18 07:35 Pulse 104 H 10/01/18 07:32 Respiratory Rate 27 H 10/01/18 07:32 Respiratory Effort 10/01/18 07:35 Respiratory Depth Normal 10/01/18 07:35 Respiratory Pattern Normal 10/01/18 07:35 Blood Pressure 140/77 10/01/18 07:32 Blood Pressure Mean 91 10/01/18 07:32 Blood Pressure Position Supine 09/29/18 19:00 Pulse Oximetry 98 10/01/18 07:35 Oxygen Delivery Method Room Air 10/01/18 07:35 Oxygen Flow Rate 0 10/01/18 07:35 Pain Level 0 09/30/18 20:05 Comment 09/30/18 18:03 Intake & Output 09/30/18 09/30/18 10/01/18 11:59 23:59 11:59 Intake Total 2091.667 / 2091.667 1886.250 / 1886.250 940 / 940 Output Total 1225 / 1225 800 / 800 1150 / 1150 Balance 866.667 / 064.968 8258.250 / 1086.250 -210 / -210 Weight 52.8 kg Intake: IV 1391.667 / 7731.710 1416.250 / 1146.250 200 / 200 Oral 700 / 700 740 / 740 740 / 740 Output: Urine 1225 / 1225 600 / 600 800 / 800 Stool 200 / 200 300 / 300 Emesis 50 / 50 Other: Urine Color Yellow Light Tiny Yellow Urine Appearance Clear Clear Clear Urine Odor Normal Comment catheter intact mixed with stool in the commode void x 1, unmeasured, mixed with liquid stool. Stool Size Small Large Small Stool Characteristics Liquid Liquid Brown Emesis Description Undigested Food Voiding Methods Bedside Commode Bedside Commode Laboratory Results WBC 5.57 k/cumm (4.4-10.8) 10/01/18 06:45 RBC 2.56 m/cumm (4.00-5.20) L 10/01/18 06:45 Hgb 8.3 g/dL (12.0-15.5) L 10/01/18 06:45 Hct 25.2 % (36.0-46.0) L 10/01/18 06:45 MCV 98.4 fL (80-95) H 10/01/18 06:45 MCH 32.4 pg (27.0-33.0) 10/01/18 06:45 MCHC 32.9 g/dL (32.0-36.0) 10/01/18 06:45 RDW 14.6 % (11.7-14.6) 10/01/18 06:45 Plt Count 242 x1000/uL (130-400) 10/01/18 06:45 MPV 10.0 fL (8.0-11.0) 10/01/18 06:45 Immature Gran % 0.4 10/01/18 06:45 Neutrophils % 68.2 10/01/18 06:45 Lymphocytes % 22.6 10/01/18 06:45 Monocytes % 8.1 10/01/18 06:45 Eosinophils % 0.5 10/01/18 06:45 Basophils % 0.2 10/01/18 06:45 Absolute Neutrophils 3.80 k/cumm (1.2-6.7) 10/01/18 06:45 Absolute Lymphocytes 1.26 k/cumm (1.2-3.4) 10/01/18 06:45 Absolute Monocytes 0.45 k/cumm (0.11-0.7) 10/01/18 06:45 Absolute Eosinophils 0.03 k/cumm (0.0-0.7) 10/01/18 06:45 Absolute Basophils 0.01 k/cumm (0.0-0.2) 10/01/18 06:45 Differential Comment Rbc morph reviewed 09/28/18 06:23 RBC Morphology See below 09/28/18 06:23 Polychromasia Present 09/28/18 06:23 Macrocytosis 1+ 09/28/18 06:23 PT 10.6 sec (9.3-10.8) 09/28/18 06:23 INR 1.1 (1.0-3.5) 09/28/18 06:23 APTT 22.6 sec (21.0-31.4) 09/26/18 16:30 Sodium 134 mmol/L (136-145) L 10/01/18 06:45 Potassium 4.0 mmol/L (3.5-5.1) D 10/01/18 06:45 Chloride 102 mmol/L (98-107) 10/01/18 06:45 Carbon Dioxide 23.1 mmol/L (21.0-32.0) 10/01/18 06:45 Anion Gap 8.9 mmol/L (3-11) 10/01/18 06:45 BUN 1 mg/dL (7-18) L 10/01/18 06:45 Creatinine 0.63 mg/dL (0.55-1.02) 10/01/18 06:45 Estimated GFR/1.73 m2 >= 60.00 (mL/min/1.73m2) 10/01/18 06:45 Glucose 114 mg/dL (70-100) H 10/01/18 06:45 Lactate 1.3 mmol/L (0.6-1.4) 09/27/18 07:23 Calcium 7.2 mg/dL (8.5-10.1) L 10/01/18 06:45 Magnesium 1.1 mg/dL (1.8-2.4) L 10/01/18 06:45 Iron 128 ug/dL (50-175) 09/27/18 07:23 TIBC 153 ug/dL (250-450) L 09/27/18 07:23 Transferrin % Sat 84 % (15-50) H 09/27/18 07:23 Ferritin 599 ng/mL (8-388) H 09/27/18 07:23 Total Bilirubin 0.7 mg/dL (0.2-1.0) 09/27/18 07:23 Conjugated Bilirubin 0.43 mg/dL (0.00-0.20) H 09/27/18 07:23 AST 91 U/L (15-37) H 09/27/18 07:23 ALT 19 U/L (12-78) 09/27/18 07:23 Alkaline Phosphatase 84 U/L (46-116) 09/27/18 07:23 Troponin I 0.06 ng/mL (0.00-0.06) 09/27/18 07:23 Total Protein 6.5 g/dL (6.4-8.2) 09/27/18 07:23 Albumin 2.0 g/dL (3.4-5.0) L 09/29/18 09:03 Triglycerides 114 mg/dL (30-150) 09/27/18 07:23 Total Cholesterol 116 mg/dL (50-200) 09/27/18 07:23 LDL Cholesterol Direct 71 mg/dL (<100) 09/27/18 07:23 HDL Cholesterol 25 mg/dL (40-60) L 09/27/18 07:23 Vitamin B12 1404 pg/mL (193-986) H 09/27/18 07:23 Folate > 20.0 ng/mL (8.6-20.0) H 09/27/18 07:23 TSH Cancelled 09/26/18 17:58 Urine Color Yellow (Yellow) 09/26/18 18:50 Urine Clarity Sl cloudy 09/26/18 18:50 Urine pH 7.0 (5-8) 09/26/18 18:50 Ur Specific [place] 1.015 (1.005-1.025) 09/26/18 18:50 Urine Protein Negative mg/dL (Negative) 09/26/18 18:50 Urine Ketones Negative mg/dL (Negative) 09/26/18 18:50 Urine Blood Moderate (Negative) H 09/26/18 18:50 Urine Nitrite Negative (Negative) 09/26/18 18:50 Urine Bilirubin Negative (Negative) 09/26/18 18:50 Urine Urobilinogen 0.2 EU/dL (Up TO 0.2) 09/26/18 18:50 Ur Leukocyte Esterase Negative (Negative) 09/26/18 18:50 Urine RBC 0-2 (0-2) 09/26/18 18:50 Urine WBC 3-5 HPF (0-5) 09/26/18 18:50 Ur Epithelial Cells Few HPF (Negative) 09/26/18 18:50 Urine Crystals Negative HPF (Negative) 09/26/18 18:50 Urine Bacteria Packed HPF (Negative) 09/26/18 18:50 Urine Casts Negative LPF (Negative) 09/26/18 18:50 Urine Mucus Negative (Negative) 09/26/18 18:50 Ur Culture Indicated? Yes 09/26/18 18:50 Urine Glucose Negative mg/dL (Negative) 09/26/18 18:50 Vancomycin Trough 17.2 ug/mL (10.0-20.0) 09/28/18 16:50 Urine Opiates Screen Negative (Negative) 09/26/18 18:50 Urine Methadone Screen Negative (Negative) 09/26/18 18:50 Ur Barbiturates Screen Negative (Negative) 09/26/18 18:50 Ur Tricyclics Screen Negative (Negative) 09/26/18 18:50 Ur Amphetamines Screen Negative (Negative) 09/26/18 18:50 U Benzodiazepines Scrn Negative (Negative) 09/26/18 18:50 Urine Cocaine Screen Negative (Negative) 09/26/18 18:50 Ur THC Screen Negative (Negative) 09/26/18 18:50 Ethyl Alcohol < 3.0 mg/dL (<3) 09/26/18 16:30
--- NOTE | 2018-10-01 15:37 | CHAPLAIN ---
ICU nurse, REGLA Cortes, asked me to visit Cece as she had been teary earlier in the day. Cece seemed tired when I visited. She said she has to make some decisions about work and applying for disability and that there is a lot weighing on her mind. She identified her boyfriend as the person she feels comfortable with talking about choices and making decisions. I suggested that her Strategic Consultant may have suggestions for [employer] staff who can help with disability applications if she decides to do that. I offered ongoing support.
[2018-10-01] MEDS: Normal Saline Flush 10 ML SYR IVP (17:48)
[2018-10-01] MEDS: Metoprolol 50 MG TAB PO (21:04)
[2018-10-01] MEDS: Lactobacillus Acidophilus CAP 1 CAP PO (21:04)
[2018-10-01] MEDS: Enoxaparin 40 MG/0.4 ML SYR SC (21:06)
[2018-10-01] MEDS: Pantoprazole 40 MG VIAL IVP (21:07)
[2018-10-01] MEDS: Rosuvastatin 5 MG TAB PO (21:11)
[2018-10-02] VITALS (31 sets, daily range): BP systolic 104–122; BP diastolic 61–69; PULSE 74–91; RESP 11–24; TEMP 36.2–36.8; O2SAT 96–98
[2018-10-02] MEDS: Acetaminophen 500 MG TAB 1000 MG PO ×2 (01:55→15:38)
[2018-10-02] MEDS: AMPICILLIN SODIUM 1 GM in Normal Saline 50 ML IVPB ×3 (05:02→18:31)
[2018-10-02 07:37] LABS: Anion Gap 8.8 mmol/L (3-11); BUN 3 mg/dL (7-18); CO2 23.2 mmol/L (21.0-32.0); CREATININE 0.61 mg/dL (0.55-1.02); Calcium 8.1 mg/dL (8.5-10.1); Chloride 100 mmol/L (98-107); Glucose 105 mg/dL (70-100); Magnesium 1.1 mg/dL (1.8-2.4); Potassium 4.3 mmol/L (3.5-5.1); Sodium 132 mmol/L (136-145)
[2018-10-02] MEDS: Levothyroxine 50 MCG TAB PO (07:41)
--- NOTE | 2018-10-02 08:21 | CMPROGNOTE_ITS ---
- If Service Date Differs Date of service: 10/02/18 Time of Service: 08:20 Care Management Progress Note S/O:CM attempted to meet with patient she is asleep. No change in status today. CM contacted her son Aleks and provided updates and plan for [place] [facility] [place] He will be away at [facility] starting on Thursday in [place] and will not return for one week. He understands the plan and will continue to be available by cell phone. A: Cece is a 53 year old female admitted to [facility] 09/26/18 with ETOH withdrawal , SIRS, Hypokalemia and Hypomagnesemia. She continues IV antibiotics treatment for an MSSA bacteremia, along with an E.Coli and Enterococcus UTI. She continues to have difficulty swallowing, but is tolerating a modified diet. Her urinary cath has been discontinued and she is voiding on her own. P: Cece will need to have a EGD and DEEDEE while at [facility] to determine course of treatment. She will be a down and back by ambulance. Cece will plan to return home when medically ready she will require medical terminologist antibiotics. She has follow up scheduled with Extension Course Coordinator at [facility] [place] 10/08/18 at 4:15. Continued discussion central to substance abuse support services in the community. She will transport home via private vehicle with her family at time of discharge.
[2018-10-02] MEDS: Calcium Carbonate 1.5 GM TAB PO ×2 (08:48→19:23)
[2018-10-02] MEDS: Folic Acid 1 MG TAB PO (08:48)
[2018-10-02] MEDS: Multivitamin TAB 1 TAB PO (08:48)
[2018-10-02] MEDS: Metoprolol 50 MG TAB PO ×2 (08:48→19:23)
[2018-10-02] MEDS: Potassium Chloride 20 MEQ TABCR PO (08:48)
[2018-10-02] MEDS: Thiamine 100 MG TAB PO (08:48)
[2018-10-02] MEDS: Lactobacillus Acidophilus CAP 1 CAP PO ×2 (08:48→19:23)
[2018-10-02] MEDS: Venlafaxine 150 MG CAPCR PO (08:57)
[2018-10-02] MEDS: Magnesium Oxide 400 MG TAB 800 MG PO ×2 (09:31→19:23)
[2018-10-02] MEDS: Normal Saline Flush 10 ML SYR IVP (09:47)
[2018-10-02] MEDS: MAGNESIUM SULFATE 4 GM/100 ML BAG IVPB (09:47)
--- NOTE | 2018-10-02 12:45 | W.PM.PROGNOT ---
Date of Service Date of service: 10/02/18 Time of Service: 12:45 Assessment and Plan (1) Sepsis: Current visit: Yes Status: Acute Though tachycardia and altered mental status could also be related to alcohol withdrawal, evidence of pneumonia, UTI, as well as lactic acidosis make sepsis likely diagnosis. Currently resolved. Lactate normalized following initiation of antibiotic therapy and aggressive IVF resuscitation and antibiotic therapy. Currently with MSSA Bacteremia and a pansensitive E.Coli UTI, currently on combination of Oxacillin and Ancef - Of note, also with growth of enterococcus faecalis on Urine Culture, but with 50-100,000 colonies / ml. TTE without evidence of endocarditis. Today is Day #7 of antibiotic therapy. Plan will be for an eventual DEEDEE to ensure lack of endocarditis prior to determination of the length of antibiotic course. Repeat Blood Cultures now. (2) UTI (urinary tract infection): Current visit: Yes Status: Acute Treatment as above. (3) Alcohol withdrawal delirium: Current visit: Yes Status: Acute Resolved. (4) Abnormal EKG: Current visit: Yes Status: Acute In setting of electrolyte abnormalities, significance unclear. Minimal and equivocal troponin elevation downtrended and normalized. Continue to monitor on tele and consider further work-up in the future once stable. (5) Dysphagia: Current visit: Yes Status: Chronic With evidence of potential esophageal mass in patient with history of ETOH and Tobacco. Will likely require EGD with intervention acutely - possibility for transfer to [facility] [place], and back once completed. Will also discuss regarding potential concurrent DEEDEE to rule out endocarditis. (6) PAD (peripheral artery disease): Current visit: Yes Status: Chronic Patient already follows with vascular at [facility]. No signs of critical limb ischemia, but the patient does not have palpable pedal pulses on admission, which appears to be her baseline. (7) Breast cancer: Current visit: Yes Status: Chronic IDC, ER/[place] +, s/p lumpectomy and XRT, noncompliant with tamoxifen therapy (8) Urinary retention: Current visit: Yes Status: Acute It is possible that this was precipitated by administration of ativan. S/p benítez - now with successful voiding trial. (9) Normocytic anemia: Current visit: Yes Status: Acute Potentially anemia of chronic disease based on normal iron, Low TIBC and elevated Ferritin. B12, FA, and TSH all checked and normal. Monitor. (10) Malnutrition: Current visit: Yes Status: Acute Associated with chronic severe alcohol use disorder as well as dysphagia with decreased oral intake of solids due to potential esophageal mass. (11) DVT prophylaxis: Current visit: Yes Status: Acute Lovenox SC. Subjective Interval history since last seen: 53 year old female with a prior history of ETOH abuse admitted from [facility] Emergency Department on 09/26/2018 with concern for alcohol withdrawl and sepsis from Pneumonia. Ms. Welch has a prior medical history significant for breast cancer s/p lumpectomy and XRT, noncompliant with tamoxifen therapy. She has also had dysphagia with solids, scheduled for evaluation but non-compliant with visits at [facility]. She uses tobacco and has a history of ETOH abuse. Other history also includes PAD, hypertension, and hypothyroidism. The patient was apparently driving to [place] on the day of admission when she suddenly felt palpitations, pulled over, and dialed 911. EMS found her to be in sinus tachycardia in 130's, and hypoxic with a pulse ox in the high 80's. According to reports, the patient reported chest pain to EMS. Though she was initially oriented, the patient was felt to be somewhat disoriented even on arrival to the emergency room. Her home medications were verified with her outpatient pharmacy - evidently however the patient has not been taking any of her medications. She also reported a 6 pack of beer daily drinking history, but with her last drink occuring 3 days prior to admission. In ED, she was tachycardic, not hypoxic. In approximately one hour she was noted to be agitated, restless, and suspected to have begun withdrawing from alcohol. There was no witnessed seizure activity, but there was a noticeable change in mental status. She was treated with PO and IV ativan. Her CT of the head and CTA of her chest were negative. She was found to be retaining urine (1.4 L out upon insertion of a benítez catheter). She was also noted to have a multi-focal pneumonia by CT of the chest. Since the time of her admission Mrs. Welch has undergone alcohol withdrawl which now appears resolved. She is on treatment for an MSSA bacteremia, along with an E.Coli and Enterococcus UTI. She continues to have dysphagia to solids, but is tolerating a modified diet. She has undergone a successfull void trial and her benítez is discontinued. She continues to have profound hypomagnesemia despite aggressive repletion, but her hypokalemia has resolved. An ECHO (TTE) was performed in the setting of MSSA bacteremia, and showed no obvious evidence of endocarditis. No overnight events reported. Remains afebrile. Exam Narrative Exam Narrative: General: Thin woman, appears older than stated age. Cmfortable and in no acute distress. Neck: Supple CV: Regular, nontachycardic, S1S2, No rubs, murmurs, or gallops. Pulmonary: Clear to auscultation bilaterally, no crackles, wheezing, or rhonchi Abdomen: + Bowel Sounds, soft, nontender, nondistended Vascular: No lower extremity edema Psych: Normal mood and affect. Objective Objective Clinical Data: Abnormal lab results 10/02/18 Range/Units 07:03 Sodium 132 L (136-145) mmol/L BUN 3 L (7-18) mg/dL Glucose 105 H (70-100) mg/dL Calcium 8.1 L (8.5-10.1) mg/dL Magnesium 1.1 L (1.8-2.4) mg/dL Vital Signs Temperature 36.7 C 10/02/18 02:55 Temperature Source Temporal Artery Scan 10/02/18 02:15 Pulse 82 10/02/18 02:15 Pulse Rhythm Regular 10/02/18 00:05 Pulse 81 10/02/18 03:00 Respiratory Rate 16 10/02/18 03:00 Respiratory Effort 10/02/18 00:05 Respiratory Depth Normal 10/02/18 00:05 Respiratory Pattern Normal 10/02/18 00:05 Blood Pressure 105/61 10/02/18 02:15 Blood Pressure Mean 76 10/01/18 22:01 Blood Pressure Position Supine 09/29/18 19:00 Pulse Oximetry 96 10/02/18 02:15 Oxygen Delivery Method Room Air 10/02/18 02:15 Oxygen Flow Rate 0 10/02/18 02:15 Pain Level 0 10/02/18 02:55 Comment 09/30/18 18:03 Intake & Output 10/01/18 10/02/18 10/02/18 23:59 11:59 23:59 Intake Total 1350 / 1350 300 / 300 Output Total 325 / 325 1000 / 1000 Balance 1025 / 1025 -700 / -700 Weight 52 kg Intake: IV 420 / 420 150 / 150 Oral 930 / 930 150 / 150 Output: Urine 325 / 325 1000 / 1000 Other: Urine Appearance Clear Clear Comment Void x 1 mixed with liquid stool. Void x 1 mixed with liquid stool. Stool Occult Blood Negative Negative Stool Size Small Small Stool Characteristics Liquid Liquid Brown Brown Voiding Methods Bedside Commode Bedside Commode Laboratory Results WBC 5.57 k/cumm (4.4-10.8) 10/01/18 06:45 RBC 2.56 m/cumm (4.00-5.20) L 10/01/18 06:45 Hgb 8.3 g/dL (12.0-15.5) L 10/01/18 06:45 Hct 25.2 % (36.0-46.0) L 10/01/18 06:45 MCV 98.4 fL (80-95) H 10/01/18 06:45 MCH 32.4 pg (27.0-33.0) 10/01/18 06:45 MCHC 32.9 g/dL (32.0-36.0) 10/01/18 06:45 RDW 14.6 % (11.7-14.6) 10/01/18 06:45 Plt Count 242 x1000/uL (130-400) 10/01/18 06:45 MPV 10.0 fL (8.0-11.0) 10/01/18 06:45 Immature Gran % 0.4 10/01/18 06:45 Neutrophils % 68.2 10/01/18 06:45 Lymphocytes % 22.6 10/01/18 06:45 Monocytes % 8.1 10/01/18 06:45 Eosinophils % 0.5 10/01/18 06:45 Basophils % 0.2 10/01/18 06:45 Absolute Neutrophils 3.80 k/cumm (1.2-6.7) 10/01/18 06:45 Absolute Lymphocytes 1.26 k/cumm (1.2-3.4) 10/01/18 06:45 Absolute Monocytes 0.45 k/cumm (0.11-0.7) 10/01/18 06:45 Absolute Eosinophils 0.03 k/cumm (0.0-0.7) 10/01/18 06:45 Absolute Basophils 0.01 k/cumm (0.0-0.2) 10/01/18 06:45 Differential Comment Rbc morph reviewed 09/28/18 06:23 RBC Morphology See below 09/28/18 06:23 Polychromasia Present 09/28/18 06:23 Macrocytosis 1+ 09/28/18 06:23 PT 10.6 sec (9.3-10.8) 09/28/18 06:23 INR 1.1 (1.0-3.5) 09/28/18 06:23 APTT 22.6 sec (21.0-31.4) 09/26/18 16:30 Sodium 132 mmol/L (136-145) L 10/02/18 07:03 Potassium 4.3 mmol/L (3.5-5.1) 10/02/18 07:03 Chloride 100 mmol/L (98-107) 10/02/18 07:03 Carbon Dioxide 23.2 mmol/L (21.0-32.0) 10/02/18 07:03 Anion Gap 8.8 mmol/L (3-11) 10/02/18 07:03 BUN 3 mg/dL (7-18) L 10/02/18 07:03 Creatinine 0.61 mg/dL (0.55-1.02) 10/02/18 07:03 Estimated GFR/1.73 m2 >= 60.00 (mL/min/1.73m2) 10/02/18 07:03 Glucose 105 mg/dL (70-100) H 10/02/18 07:03 Lactate 1.3 mmol/L (0.6-1.4) 09/27/18 07:23 Calcium 8.1 mg/dL (8.5-10.1) L 10/02/18 07:03 Magnesium 1.1 mg/dL (1.8-2.4) L 10/02/18 07:03 Iron 128 ug/dL (50-175) 09/27/18 07:23 TIBC 153 ug/dL (250-450) L 09/27/18 07:23 Transferrin % Sat 84 % (15-50) H 09/27/18 07:23 Ferritin 599 ng/mL (8-388) H 09/27/18 07:23 Total Bilirubin 0.7 mg/dL (0.2-1.0) 09/27/18 07:23 Conjugated Bilirubin 0.43 mg/dL (0.00-0.20) H 09/27/18 07:23 AST 91 U/L (15-37) H 09/27/18 07:23 ALT 19 U/L (12-78) 09/27/18 07:23 Alkaline Phosphatase 84 U/L (46-116) 09/27/18 07:23 Troponin I 0.06 ng/mL (0.00-0.06) 09/27/18 07:23 Total Protein 6.5 g/dL (6.4-8.2) 09/27/18 07:23 Albumin 2.0 g/dL (3.4-5.0) L 09/29/18 09:03 Triglycerides 114 mg/dL (30-150) 09/27/18 07:23 Total Cholesterol 116 mg/dL (50-200) 09/27/18 07:23 LDL Cholesterol Direct 71 mg/dL (<100) 09/27/18 07:23 HDL Cholesterol 25 mg/dL (40-60) L 09/27/18 07:23 Vitamin B12 1404 pg/mL (193-986) H 09/27/18 07:23 Folate > 20.0 ng/mL (8.6-20.0) H 09/27/18 07:23 TSH Cancelled 09/26/18 17:58 Urine Color Yellow (Yellow) 09/26/18 18:50 Urine Clarity Sl cloudy 09/26/18 18:50 Urine pH 7.0 (5-8) 09/26/18 18:50 Ur Specific [place] 1.015 (1.005-1.025) 09/26/18 18:50 Urine Protein Negative mg/dL (Negative) 09/26/18 18:50 Urine Ketones Negative mg/dL (Negative) 09/26/18 18:50 Urine Blood Moderate (Negative) H 09/26/18 18:50 Urine Nitrite Negative (Negative) 09/26/18 18:50 Urine Bilirubin Negative (Negative) 09/26/18 18:50 Urine Urobilinogen 0.2 EU/dL (Up TO 0.2) 09/26/18 18:50 Ur Leukocyte Esterase Negative (Negative) 09/26/18 18:50 Urine RBC 0-2 (0-2) 09/26/18 18:50 Urine WBC 3-5 HPF (0-5) 09/26/18 18:50 Ur Epithelial Cells Few HPF (Negative) 09/26/18 18:50 Urine Crystals Negative HPF (Negative) 09/26/18 18:50 Urine Bacteria Packed HPF (Negative) 09/26/18 18:50 Urine Casts Negative LPF (Negative) 09/26/18 18:50 Urine Mucus Negative (Negative) 09/26/18 18:50 Ur Culture Indicated? Yes 09/26/18 18:50 Urine Glucose Negative mg/dL (Negative) 09/26/18 18:50 Vancomycin Trough 17.2 ug/mL (10.0-20.0) 09/28/18 16:50 Urine Opiates Screen Negative (Negative) 09/26/18 18:50 Urine Methadone Screen Negative (Negative) 09/26/18 18:50 Ur Barbiturates Screen Negative (Negative) 09/26/18 18:50 Ur Tricyclics Screen Negative (Negative) 09/26/18 18:50 Ur Amphetamines Screen Negative (Negative) 09/26/18 18:50 U Benzodiazepines Scrn Negative (Negative) 09/26/18 18:50 Urine Cocaine Screen Negative (Negative) 09/26/18 18:50 Ur THC Screen Negative (Negative) 09/26/18 18:50 Ethyl Alcohol < 3.0 mg/dL (<3) 09/26/18 16:30
--- NOTE | 2018-10-02 12:52 | PGE_ITS ---
Date of Service Date of service: 10/02/18 Time of Service: 12:45 Assessment and Plan (1) Sepsis: Current visit: Yes Status: Acute Though tachycardia and altered mental status could also be related to alcohol withdrawal, evidence of pneumonia, UTI, as well as lactic acidosis make sepsis likely diagnosis. Currently resolved. Lactate normalized following initiation of antibiotic therapy and aggressive IVF resuscitation and antibiotic therapy. Currently with MSSA Bacteremia and a pansensitive E.Coli UTI, currently on combination of Oxacillin and Ancef - Of note, also with growth of enterococcus faecalis on Urine Culture, but with 50-100,000 colonies / ml. TTE without evidence of endocarditis. Today is Day #7 of antibiotic therapy. Plan will be for an eventual DEEDEE to ensure lack of endocarditis prior to determination of the length of antibiotic course. Repeat Blood Cultures now. (2) UTI (urinary tract infection): Current visit: Yes Status: Acute Treatment as above. (3) Alcohol withdrawal delirium: Current visit: Yes Status: Acute Resolved. (4) Abnormal EKG: Current visit: Yes Status: Acute In setting of electrolyte abnormalities, significance unclear. Minimal and equivocal troponin elevation downtrended and normalized. Continue to monitor on tele and consider further work-up in the future once stable. (5) Dysphagia: Current visit: Yes Status: Chronic With evidence of potential esophageal mass in patient with history of ETOH and Tobacco. Will likely require EGD with intervention acutely - possibility for transfer to [facility] [place], and back once completed. Will also discuss regarding potential concurrent DEEDEE to rule out endocarditis. (6) PAD (peripheral artery disease): Current visit: Yes Status: Chronic Patient already follows with vascular at [facility]. No signs of critical limb ischemia, but the patient does not have palpable pedal pulses on admission, which appears to be her baseline. (7) Breast cancer: Current visit: Yes Status: Chronic IDC, ER/[place] +, s/p lumpectomy and XRT, noncompliant with tamoxifen therapy (8) Urinary retention: Current visit: Yes Status: Acute It is possible that this was precipitated by administration of ativan. S/ p benítez - now with successful voiding trial. (9) Normocytic anemia: Current visit: Yes Status: Acute Potentially anemia of chronic disease based on normal iron, Low TIBC and elevated Ferritin. B12, FA, and TSH all checked and normal. Monitor. (10) Malnutrition: Current visit: Yes Status: Acute Associated with chronic severe alcohol use disorder as well as dysphagia with decreased oral intake of solids due to potential esophageal mass. (11) DVT prophylaxis: Current visit: Yes Status: Acute Lovenox SC. Subjective Interval history since last seen: 53 year old female with a prior history of ETOH abuse admitted from [facility] Emergency Department on 09/26/2018 with concern for alcohol withdrawl and sepsis from Pneumonia. Ms. Welch has a prior medical history significant for breast cancer s/p lumpectomy and XRT, noncompliant with tamoxifen therapy. She has also had dysphagia with solids, scheduled for evaluation but non-compliant with visits at [facility]. She uses tobacco and has a history of ETOH abuse. Other history also includes PAD, hypertension, and hypothyroidism. The patient was apparently driving to [place] on the day of admission when she suddenly felt palpitations , pulled over, and dialed 911. EMS found her to be in sinus tachycardia in 130's , and hypoxic with a pulse ox in the high 80's. According to reports, the patient reported chest pain to EMS. Though she was initially oriented, the patient was felt to be somewhat disoriented even on arrival to the emergency room. Her home medications were verified with her outpatient pharmacy - evidently however the patient has not been taking any of her medications. She also reported a 6 pack of beer daily drinking history, but with her last drink occuring 3 days prior to admission. In ED, she was tachycardic, not hypoxic. In approximately one hour she was noted to be agitated, restless, and suspected to have begun withdrawing from alcohol. There was no witnessed seizure activity, but there was a noticeable change in mental status. She was treated with PO and IV ativan. Her CT of the head and CTA of her chest were negative. She was found to be retaining urine ( 1.4 L out upon insertion of a benítez catheter). She was also noted to have a multi-focal pneumonia by CT of the chest. Since the time of her admission Mrs. Welch has undergone alcohol withdrawl which now appears resolved. She is on treatment for an MSSA bacteremia, along with an E.Coli and Enterococcus UTI. She continues to have dysphagia to solids, but is tolerating a modified diet. She has undergone a successfull void trial and her benítez is discontinued. She continues to have profound hypomagnesemia despite aggressive repletion, but her hypokalemia has resolved. An ECHO (TTE) was performed in the setting of MSSA bacteremia, and showed no obvious evidence of endocarditis. No overnight events reported. Remains afebrile. Exam Narrative Exam Narrative: General: Thin woman, appears older than stated age. Cmfortable and in no acute distress. Neck: Supple CV: Regular, nontachycardic, S1S2, No rubs, murmurs, or gallops. Pulmonary: Clear to auscultation bilaterally, no crackles, wheezing, or rhonchi Abdomen: + Bowel Sounds, soft, nontender, nondistended Vascular: No lower extremity edema Psych: Normal mood and affect. Objective Objective Clinical Data: Abnormal lab results 10/02/18 Range/Units 07:03 Sodium 132 L (136-145) mmol/L BUN 3 L (7-18) mg/dL Glucose 105 H (70-100) mg/dL Calcium 8.1 L (8.5-10.1) mg/dL Magnesium 1.1 L (1.8-2.4) mg/dL Vital Signs Temperature 36.7 C 10/02/18 02:55 Temperature Source Temporal Artery Scan 10/02/18 02:15 Pulse 82 10/02/18 02:15 Pulse Rhythm Regular 10/02/18 00:05 Pulse 81 10/02/18 03:00 Respiratory Rate 16 10/02/18 03:00 Respiratory Effort 10/02/18 00:05 Respiratory Depth Normal 10/02/18 00:05 Respiratory Pattern Normal 10/02/18 00:05 Blood Pressure 105/61 10/02/18 02:15 Blood Pressure Mean 76 10/01/18 22:01 Blood Pressure Position Supine 09/29/18 19:00 Pulse Oximetry 96 10/02/18 02:15 Oxygen Delivery Method Room Air 10/02/18 02:15 Oxygen Flow Rate 0 10/02/18 02:15 Pain Level 0 10/02/18 02:55 Comment 09/30/18 18:03 Intake & Output 10/01/18 10/02/18 10/02/18 23:59 11:59 23:59 Intake Total 1350 / 1350 300 / 300 Output Total 325 / 325 1000 / 1000 Balance 1025 / 1025 -700 / -700 Weight 52 kg Intake: IV 420 / 420 150 / 150 Oral 930 / 930 150 / 150 Output: Urine 325 / 325 1000 / 1000 Other: Urine Appearance Clear Clear Comment Void x 1 mixed with liquid stool. Void x 1 mixed with liquid stool. Stool Occult Blood Negative Negative Stool Size Small Small Stool Characteristics Liquid Liquid Brown Brown Voiding Methods Bedside Commode Bedside Commode Laboratory Results WBC 5.57 k/cumm (4.4-10.8) 10/01/18 06:45 RBC 2.56 m/cumm (4.00-5.20) L 10/01/18 06:45 Hgb 8.3 g/dL (12.0-15.5) L 10/01/18 06:45 Hct 25.2 % (36.0-46.0) L 10/01/18 06:45 MCV 98.4 fL (80-95) H 10/01/18 06:45 MCH 32.4 pg (27.0-33.0) 10/01/18 06:45 MCHC 32.9 g/dL (32.0-36.0) 10/01/18 06:45 RDW 14.6 % (11.7-14.6) 10/01/18 06:45 Plt Count 242 x1000/uL (130-400) 10/01/18 06:45 MPV 10.0 fL (8.0-11.0) 10/01/18 06:45 Immature Gran % 0.4 10/01/18 06:45 Neutrophils % 68.2 10/01/18 06:45 Lymphocytes % 22.6 10/01/18 06:45 Monocytes % 8.1 10/01/18 06:45 Eosinophils % 0.5 10/01/18 06:45 Basophils % 0.2 10/01/18 06:45 Absolute Neutrophils 3.80 k/cumm (1.2-6.7) 10/01/18 06:45 Absolute Lymphocytes 1.26 k/cumm (1.2-3.4) 10/01/18 06:45 Absolute Monocytes 0.45 k/cumm (0.11-0.7) 10/01/18 06:45 Absolute Eosinophils 0.03 k/cumm (0.0-0.7) 10/01/18 06:45 Absolute Basophils 0.01 k/cumm (0.0-0.2) 10/01/18 06:45 Differential Comment Rbc morph reviewed 09/28/18 06:23 RBC Morphology See below 09/28/18 06:23 Polychromasia Present 09/28/18 06:23 Macrocytosis 1+ 09/28/18 06:23 PT 10.6 sec (9.3-10.8) 09/28/18 06:23 INR 1.1 (1.0-3.5) 09/28/18 06:23 APTT 22.6 sec (21.0-31.4) 09/26/18 16:30 Sodium 132 mmol/L (136-145) L 10/02/18 07:03 Potassium 4.3 mmol/L (3.5-5.1) 10/02/18 07:03 Chloride 100 mmol/L (98-107) 10/02/18 07:03 Carbon Dioxide 23.2 mmol/L (21.0-32.0) 10/02/18 07:03 Anion Gap 8.8 mmol/L (3-11) 10/02/18 07:03 BUN 3 mg/dL (7-18) L 10/02/18 07:03 Creatinine 0.61 mg/dL (0.55-1.02) 10/02/18 07:03 Estimated GFR/1.73 m2 >= 60.00 (mL/min/1.73m2) 10/02/18 07:03 Glucose 105 mg/dL (70-100) H 10/02/18 07:03 Lactate 1.3 mmol/L (0.6-1.4) 09/27/18 07:23 Calcium 8.1 mg/dL (8.5-10.1) L 10/02/18 07:03 Magnesium 1.1 mg/dL (1.8-2.4) L 10/02/18 07:03 Iron 128 ug/dL (50-175) 09/27/18 07:23 TIBC 153 ug/dL (250-450) L 09/27/18 07:23 Transferrin % Sat 84 % (15-50) H 09/27/18 07:23 Ferritin 599 ng/mL (8-388) H 09/27/18 07:23 Total Bilirubin 0.7 mg/dL (0.2-1.0) 09/27/18 07:23 Conjugated Bilirubin 0.43 mg/dL (0.00-0.20) H 09/27/18 07:23 AST 91 U/L (15-37) H 09/27/18 07:23 ALT 19 U/L (12-78) 09/27/18 07:23 Alkaline Phosphatase 84 U/L (46-116) 09/27/18 07:23 Troponin I 0.06 ng/mL (0.00-0.06) 09/27/18 07:23 Total Protein 6.5 g/dL (6.4-8.2) 09/27/18 07:23 Albumin 2.0 g/dL (3.4-5.0) L 09/29/18 09:03 Triglycerides 114 mg/dL (30-150) 09/27/18 07:23 Total Cholesterol 116 mg/dL (50-200) 09/27/18 07:23 LDL Cholesterol Direct 71 mg/dL (<100) 09/27/18 07:23 HDL Cholesterol 25 mg/dL (40-60) L 09/27/18 07:23 Vitamin B12 1404 pg/mL (193-986) H 09/27/18 07:23 Folate > 20.0 ng/mL (8.6-20.0) H 09/27/18 07:23 TSH Cancelled 09/26/18 17:58 Urine Color Yellow (Yellow) 09/26/18 18:50 Urine Clarity Sl cloudy 09/26/18 18:50 Urine pH 7.0 (5-8) 09/26/18 18:50 Ur Specific [place] 1.015 (1.005-1.025) 09/26/18 18:50 Urine Protein Negative mg/dL (Negative) 09/26/18 18:50 Urine Ketones Negative mg/dL (Negative) 09/26/18 18:50 Urine Blood Moderate (Negative) H 09/26/18 18:50 Urine Nitrite Negative (Negative) 09/26/18 18:50 Urine Bilirubin Negative (Negative) 09/26/18 18:50 Urine Urobilinogen 0.2 EU/dL (Up TO 0.2) 09/26/18 18:50 Ur Leukocyte Esterase Negative (Negative) 09/26/18 18:50 Urine RBC 0-2 (0-2) 09/26/18 18:50 Urine WBC 3-5 HPF (0-5) 09/26/18 18:50 Ur Epithelial Cells Few HPF (Negative) 09/26/18 18:50 Urine Crystals Negative HPF (Negative) 09/26/18 18:50 Urine Bacteria Packed HPF (Negative) 09/26/18 18:50 Urine Casts Negative LPF (Negative) 09/26/18 18:50 Urine Mucus Negative (Negative) 09/26/18 18:50 Ur Culture Indicated? Yes 09/26/18 18:50 Urine Glucose Negative mg/dL (Negative) 09/26/18 18:50 Vancomycin Trough 17.2 ug/mL (10.0-20.0) 09/28/18 16:50 Urine Opiates Screen Negative (Negative) 09/26/18 18:50 Urine Methadone Screen Negative (Negative) 09/26/18 18:50 Ur Barbiturates Screen Negative (Negative) 09/26/18 18:50 Ur Tricyclics Screen Negative (Negative) 09/26/18 18:50 Ur Amphetamines Screen Negative (Negative) 09/26/18 18:50 U Benzodiazepines Scrn Negative (Negative) 09/26/18 18:50 Urine Cocaine Screen Negative (Negative) 09/26/18 18:50 Ur THC Screen Negative (Negative) 09/26/18 18:50 Ethyl Alcohol < 3.0 mg/dL (<3) 09/26/18 16:30
[2018-10-02] MEDS: Rosuvastatin 5 MG TAB PO (22:28)
[2018-10-02] MEDS: Pantoprazole 40 MG VIAL IVP (22:28)
[2018-10-02] MEDS: Enoxaparin 40 MG/0.4 ML SYR SC (22:28)
[2018-10-03] VITALS (25 sets, daily range): BP systolic 109–149; BP diastolic 58–79; PULSE 77–96; RESP 13–24; TEMP 36.7–37.2; O2SAT 96–98
[2018-10-03] MEDS: AMPICILLIN SODIUM 1 GM in Normal Saline 50 ML IVPB ×2 (00:04→05:16)
[2018-10-03] MEDS: Acetaminophen 500 MG TAB 1000 MG PO ×2 (06:33→19:45)
[2018-10-03 07:01] LABS: Abs Immature Grans 0.01 k/cumm (0.0-0.09); Absolute Basophil Count 0.03 k/cumm (0.0-0.2); Absolute Eosinophil Count 0.03 k/cumm (0.0-0.7); Absolute Lymphocyte Count 1.12 k/cumm (1.2-3.4); Absolute Monocyte Count 0.44 k/cumm (0.11-0.7); Absolute Neutrophil Count 5.04 k/cumm (1.2-6.7); Basophils % 0.4; Eosinophils % 0.4; HCT 24.7 % (36.0-46.0); HGB 8.1 g/dL (12.0-15.5); Immature Grans % 0.1; Lymphocytes % 16.8; Mean Corp. HGB Concentration 32.8 g/dL (32.0-36.0); Mean Corpuscular Hemoglobin 32.1 pg (27.0-33.0); Mean Platelet Volume 9.7 fL (8.0-11.0); Monocytes % 6.6; Neutrophils % 75.7; Platelet Count 219 x1000/uL (130-400); RBC 2.52 m/cumm (4.00-5.20); RBC Distribution Width 14.8 % (11.7-14.6); White Blood Cell Count 6.67 k/cumm (4.4-10.8)
[2018-10-03 07:06] LABS: Anion Gap 9.3 mmol/L (3-11); BUN 3 mg/dL (7-18); CO2 22.7 mmol/L (21.0-32.0); CREATININE 0.47 mg/dL (0.55-1.02); Calcium 8.3 mg/dL (8.5-10.1); Chloride 97 mmol/L (98-107); Glucose 94 mg/dL (70-100); Magnesium 1.2 mg/dL (1.8-2.4); Potassium 3.9 mmol/L (3.5-5.1); Sodium 129 mmol/L (136-145)
[2018-10-03] MEDS: Levothyroxine 50 MCG TAB PO (07:50)
[2018-10-03] MEDS: MAGNESIUM SULFATE 4 GM/100 ML BAG IVPB (08:04)
[2018-10-03] MEDS: Normal Saline 1,000 ML 100 ML IV (08:05)
[2018-10-03] MEDS: Normal Saline Flush 10 ML SYR IVP ×2 (08:05→21:28)
[2018-10-03] MEDS: Folic Acid 1 MG TAB PO (08:31)
[2018-10-03] MEDS: Magnesium Oxide 400 MG TAB 800 MG PO ×3 (08:31→19:45)
[2018-10-03] MEDS: Lactobacillus Acidophilus CAP 1 CAP PO ×2 (08:31→19:45)
[2018-10-03] MEDS: Venlafaxine 150 MG CAPCR PO (08:32)
[2018-10-03] MEDS: Metoprolol 50 MG TAB PO ×2 (08:32→19:46)
[2018-10-03] MEDS: Potassium Chloride 20 MEQ TABCR PO (08:32)
[2018-10-03] MEDS: Thiamine 100 MG TAB PO (08:32)
[2018-10-03] MEDS: Multivitamin TAB 1 TAB PO (08:32)
--- NOTE | 2018-10-03 10:58 | W.PM.PROGNOT ---
Date of Service Date of service: 10/03/18 Time of Service: 10:58 Assessment and Plan (1) Sepsis: Current visit: Yes Status: Acute Though tachycardia and altered mental status could have also been related to alcohol withdrawal, evidence of pneumonia, UTI, as well as lactic acidosis make sepsis likely diagnosis. Currently resolved. Currently with MSSA Bacteremia and a pansensitive E.Coli UTI, currently on combination of Oxacillin and Ancef - Of note, also with growth of enterococcus faecalis on Urine Culture, but with 50-100,000 colonies / ml. TTE without evidence of endocarditis. Ancef discontinued as patient has now received 7 days of antibiotic therapy with appropriate coverage. Continue Day #8 of antibiotic therapy for MSSA bacteremia, currently on Oxacillin. Plan will be for an eventual DEEDEE to ensure lack of endocarditis prior to determination of the length of antibiotic course. Unfortunately repeat Blood Cultures were not obtained following identification of Staph on blood cultures - repeat set from 10/02 currently pending. Will need minimum 2 weeks of IV therapy from first clear blood culture if no evidence of endocarditis. (2) UTI (urinary tract infection): Current visit: Yes Status: Acute Completed 7 day course of antibiotics. (3) Alcohol withdrawal delirium: Current visit: Yes Status: Acute Resolved. CIWA discontinued today. (4) Abnormal EKG: Current visit: Yes Status: Acute In setting of electrolyte abnormalities, significance unclear. Minimal and equivocal troponin elevation downtrended and normalized. Monitored on telemetry without significant events. Consider further work-up in the future once stable. (5) Dysphagia: Current visit: Yes Status: Chronic With evidence of potential esophageal mass in patient with history of ETOH and Tobacco. Will likely require EGD with intervention acutely - possibility for transfer to [facility] for procedure, and back once completed. Will also discuss regarding potential concurrent DEEDEE to rule out endocarditis. (6) PAD (peripheral artery disease): Current visit: Yes Status: Chronic Patient already follows with vascular at [facility]. No signs of critical limb ischemia. Continue statin therapy. Also on BB. Restart DB-I and low dose aspirin. (7) Breast cancer: Current visit: Yes Status: Chronic IDC, ER/ID +, s/p lumpectomy and XRT, noncompliant with tamoxifen therapy (8) Urinary retention: Current visit: Yes Status: Acute It is possible that this was precipitated by administration of ativan. S/p benítez - now with successful voiding trial. Resolved. (9) Normocytic anemia: Current visit: Yes Status: Acute Potentially anemia of chronic disease based on normal iron, Low TIBC and elevated Ferritin. B12, FA, and TSH all checked and normal. Currently with mild drop. Monitor closely. Remains on IV PPI for GI Prophylaxis. (10) Malnutrition: Current visit: Yes Status: Acute Associated with chronic severe alcohol use disorder as well as dysphagia with decreased oral intake of solids due to potential esophageal mass. Continue to maximize nutrition. Also with mild but worsening hyponatremia - also hypochloremic. May be on basis of dehydration. Gently hydrate and reassess with repeat Na this afternoon. (11) DVT prophylaxis: Current visit: Yes Status: Acute Lovenox SC. Subjective Interval history since last seen: 53 year old female with a prior history of ETOH abuse admitted from [facility] Emergency Department on 09/26/2018 with concern for alcohol withdrawl and sepsis from Pneumonia. Ms. Welch has a prior medical history significant for breast cancer s/p lumpectomy and XRT, noncompliant with tamoxifen therapy. She has also had dysphagia with solids, scheduled for evaluation but non-compliant with visits At [facility]. She uses tobacco and has a history of ETOH abuse. Other history also includes PAD, hypertension, and hypothyroidism. The patient was apparently driving to [place] on the day of admission when she suddenly felt palpitations, pulled over, and dialed 911. EMS found her to be in sinus tachycardia in 130's, and hypoxic with a pulse ox in the high 80's. According to reports, the patient reported chest pain to EMS. Though she was initially oriented, the patient was felt to be somewhat disoriented even on arrival to the emergency room. Her home medications were verified with her outpatient pharmacy - evidently however the patient had not been taking any of her medications. She also reported a 6 pack of beer daily drinking history at that time, with her last drink occuring 3 days prior to admission. However, she now admits to 3-6 mixed drinks nightly, each consisting of approximately 3 shots of [employer]. Soon after arrival she was noted to be agitated, restless, and suspected to have begun withdrawing from alcohol. There was no witnessed seizure activity, but there was a noticeable change in mental status. Her CT of the head was negative. She was found to be retaining urine (1.4 L out upon insertion of a benítez catheter). She was also noted to have a multi-focal pneumonia by CT of the chest. Following her admission she was also noted to have a UTI. Since the time of her admission Mrs. Welch has undergone alcohol withdrawl which now appears resolved. She is on treatment for an MSSA bacteremia, along with an E.Coli and Enterococcus UTI. She continues to have dysphagia to solids, but is tolerating a modified diet. She has undergone a successfull void trial and her benítez is discontinued. She continues to have profound hypomagnesemia despite aggressive repletion, but her hypokalemia has resolved. An ECHO (TTE) was performed in the setting of MSSA bacteremia, and showed no obvious evidence of endocarditis. No overnight events reported. Remains afebrile. Exam Narrative Exam Narrative: General: Thin woman, appears older than stated age. Cmfortable and in no acute distress. Neck: Supple CV: Regular, nontachycardic, S1S2, No rubs or gallops. Potential 2/6 LLSB murmur on exam. Pulmonary: Clear to auscultation bilaterally, no crackles, wheezing, or rhonchi Abdomen: + Bowel Sounds, soft, nontender, nondistended Vascular: No lower extremity edema Psych: Normal mood and affect. Objective Objective Clinical Data: Abnormal lab results 10/03/18 10/03/18 Range/Units 06:46 06:46 RBC 2.52 L (4.00-5.20) m/cumm Hgb 8.1 L (12.0-15.5) g/dL Hct 24.7 L (36.0-46.0) % MCV 98.0 H (80-95) fL RDW 14.8 H (11.7-14.6) % Absolute Lymphocytes 1.12 L (1.2-3.4) k/cumm Sodium 129 L (136-145) mmol/L Chloride 97 L (98-107) mmol/L BUN 3 L (7-18) mg/dL Creatinine 0.47 L (0.55-1.02) mg/dL Calcium 8.3 L (8.5-10.1) mg/dL Magnesium 1.2 L (1.8-2.4) mg/dL Vital Signs Temperature 37.2 C 10/03/18 07:15 Temperature Source Temporal Artery Scan 10/03/18 07:15 Pulse 93 H 10/03/18 07:17 Pulse Rhythm Regular 10/03/18 07:15 Pulse 96 H 10/03/18 07:17 Respiratory Rate 24 10/03/18 07:17 Respiratory Effort Non-Labored 10/03/18 07:15 Respiratory Depth Normal 10/03/18 07:15 Respiratory Pattern Normal 10/03/18 07:15 Blood Pressure 149/79 H 10/03/18 07:17 Blood Pressure Mean 90 10/03/18 07:17 Blood Pressure Position Supine 09/29/18 19:00 Pulse Oximetry 97 10/03/18 07:15 Oxygen Delivery Method Room Air 10/03/18 07:15 Oxygen Flow Rate 0 10/03/18 07:15 Pain Level 5 10/03/18 07:33 Comment 10/03/18 07:15 Intake & Output 10/02/18 10/02/18 10/03/18 11:59 23:59 11:59 Intake Total 600 / 600 2412 / 2412 870 / 870 Output Total 1400 / 1400 650 / 650 2100 / 2100 Balance -800 / -800 1762 / 1762 -1230 / -1230 Weight 52 kg 51 kg Intake: IV 200 / 200 662 / 662 320 / 320 Oral 400 / 400 1750 / 1750 550 / 550 Output: Urine 1400 / 1400 450 / 450 1700 / 1700 Stool 200 / 200 400 / 400 Other: Urine Color Yellow Yellow Yellow Urine Appearance Clear Clear Clear Urine Odor None Normal Normal Comment mixed with stool Pt incontinent of small amount of urine and brief. Stool Occult Blood Negative Negative Negative Stool Size Small Stool Characteristics Liquid Soft Soft Brown Brown Voiding Methods Bedside Commode Bedside Commode Laboratory Results WBC 6.67 k/cumm (4.4-10.8) 10/03/18 06:46 RBC 2.52 m/cumm (4.00-5.20) L 10/03/18 06:46 Hgb 8.1 g/dL (12.0-15.5) L 10/03/18 06:46 Hct 24.7 % (36.0-46.0) L 10/03/18 06:46 MCV 98.0 fL (80-95) H 10/03/18 06:46 MCH 32.1 pg (27.0-33.0) 10/03/18 06:46 MCHC 32.8 g/dL (32.0-36.0) 10/03/18 06:46 RDW 14.8 % (11.7-14.6) H 10/03/18 06:46 Plt Count 219 x1000/uL (130-400) 10/03/18 06:46 MPV 9.7 fL (8.0-11.0) 10/03/18 06:46 Immature Gran % 0.1 10/03/18 06:46 Neutrophils % 75.7 10/03/18 06:46 Lymphocytes % 16.8 10/03/18 06:46 Monocytes % 6.6 10/03/18 06:46 Eosinophils % 0.4 10/03/18 06:46 Basophils % 0.4 10/03/18 06:46 Absolute Neutrophils 5.04 k/cumm (1.2-6.7) 10/03/18 06:46 Absolute Lymphocytes 1.12 k/cumm (1.2-3.4) L 10/03/18 06:46 Absolute Monocytes 0.44 k/cumm (0.11-0.7) 10/03/18 06:46 Absolute Eosinophils 0.03 k/cumm (0.0-0.7) 10/03/18 06:46 Absolute Basophils 0.03 k/cumm (0.0-0.2) 10/03/18 06:46 Differential Comment Rbc morph reviewed 09/28/18 06:23 RBC Morphology See below 09/28/18 06:23 Polychromasia Present 09/28/18 06:23 Macrocytosis 1+ 09/28/18 06:23 PT 10.6 sec (9.3-10.8) 09/28/18 06:23 INR 1.1 (1.0-3.5) 09/28/18 06:23 APTT 22.6 sec (21.0-31.4) 09/26/18 16:30 Sodium 129 mmol/L (136-145) L 10/03/18 06:46 Potassium 3.9 mmol/L (3.5-5.1) 10/03/18 06:46 Chloride 97 mmol/L (98-107) L 10/03/18 06:46 Carbon Dioxide 22.7 mmol/L (21.0-32.0) 10/03/18 06:46 Anion Gap 9.3 mmol/L (3-11) 10/03/18 06:46 BUN 3 mg/dL (7-18) L 10/03/18 06:46 Creatinine 0.47 mg/dL (0.55-1.02) L 10/03/18 06:46 Estimated GFR/1.73 m2 >= 60.00 (mL/min/1.73m2) 10/03/18 06:46 Glucose 94 mg/dL (70-100) 10/03/18 06:46 Lactate 1.3 mmol/L (0.6-1.4) 09/27/18 07:23 Calcium 8.3 mg/dL (8.5-10.1) L 10/03/18 06:46 Magnesium 1.2 mg/dL (1.8-2.4) L 10/03/18 06:46 Iron 128 ug/dL (50-175) 09/27/18 07:23 TIBC 153 ug/dL (250-450) L 09/27/18 07:23 Transferrin % Sat 84 % (15-50) H 09/27/18 07:23 Ferritin 599 ng/mL (8-388) H 09/27/18 07:23 Total Bilirubin 0.7 mg/dL (0.2-1.0) 09/27/18 07:23 Conjugated Bilirubin 0.43 mg/dL (0.00-0.20) H 09/27/18 07:23 AST 91 U/L (15-37) H 09/27/18 07:23 ALT 19 U/L (12-78) 09/27/18 07:23 Alkaline Phosphatase 84 U/L (46-116) 09/27/18 07:23 Troponin I 0.06 ng/mL (0.00-0.06) 09/27/18 07:23 Total Protein 6.5 g/dL (6.4-8.2) 09/27/18 07:23 Albumin 2.0 g/dL (3.4-5.0) L 09/29/18 09:03 Triglycerides 114 mg/dL (30-150) 09/27/18 07:23 Total Cholesterol 116 mg/dL (50-200) 09/27/18 07:23 LDL Cholesterol Direct 71 mg/dL (<100) 09/27/18 07:23 HDL Cholesterol 25 mg/dL (40-60) L 09/27/18 07:23 Vitamin B12 1404 pg/mL (193-986) H 09/27/18 07:23 Folate > 20.0 ng/mL (8.6-20.0) H 09/27/18 07:23 TSH Cancelled 09/26/18 17:58 Urine Color Yellow (Yellow) 09/26/18 18:50 Urine Clarity Sl cloudy 09/26/18 18:50 Urine pH 7.0 (5-8) 09/26/18 18:50 Ur Specific [place] 1.015 (1.005-1.025) 09/26/18 18:50 Urine Protein Negative mg/dL (Negative) 09/26/18 18:50 Urine Ketones Negative mg/dL (Negative) 09/26/18 18:50 Urine Blood Moderate (Negative) H 09/26/18 18:50 Urine Nitrite Negative (Negative) 09/26/18 18:50 Urine Bilirubin Negative (Negative) 09/26/18 18:50 Urine Urobilinogen 0.2 EU/dL (Up TO 0.2) 09/26/18 18:50 Ur Leukocyte Esterase Negative (Negative) 09/26/18 18:50 Urine RBC 0-2 (0-2) 09/26/18 18:50 Urine WBC 3-5 HPF (0-5) 09/26/18 18:50 Ur Epithelial Cells Few HPF (Negative) 09/26/18 18:50 Urine Crystals Negative HPF (Negative) 09/26/18 18:50 Urine Bacteria Packed HPF (Negative) 09/26/18 18:50 Urine Casts Negative LPF (Negative) 09/26/18 18:50 Urine Mucus Negative (Negative) 18 18:50 Ur Culture Indicated? Yes 09/26/18 18:50 Urine Glucose Negative mg/dL (Negative) 09/26/18 18:50 Vancomycin Trough 17.2 ug/mL (10.0-20.0) 09/28/18 16:50 Urine Opiates Screen Negative (Negative) 09/26/18 18:50 Urine Methadone Screen Negative (Negative) 09/26/18 18:50 Ur Barbiturates Screen Negative (Negative) 09/26/18 18:50 Ur Tricyclics Screen Negative (Negative) 09/26/18 18:50 Ur Amphetamines Screen Negative (Negative) 09/26/18 18:50 U Benzodiazepines Scrn Negative (Negative) 09/26/18 18:50 Urine Cocaine Screen Negative (Negative) 09/26/18 18:50 Ur THC Screen Negative (Negative) 09/26/18 18:50 Ethyl Alcohol < 3.0 mg/dL (<3) 09/26/18 16:30
--- NOTE | 2018-10-03 11:09 | PGE_ITS ---
Date of Service Date of service: 10/03/18 Time of Service: 10:58 Assessment and Plan (1) Sepsis: Current visit: Yes Status: Acute Though tachycardia and altered mental status could have also been related to alcohol withdrawal, evidence of pneumonia, UTI, as well as lactic acidosis make sepsis likely diagnosis. Currently resolved. Currently with MSSA Bacteremia and a pansensitive E.Coli UTI, currently on combination of Oxacillin and Ancef - Of note, also with growth of enterococcus faecalis on Urine Culture, but with 50-100,000 colonies / ml. TTE without evidence of endocarditis. Ancef discontinued as patient has now received 7 days of antibiotic therapy with appropriate coverage. Continue Day #8 of antibiotic therapy for MSSA bacteremia, currently on Oxacillin. Plan will be for an eventual DEEDEE to ensure lack of endocarditis prior to determination of the length of antibiotic course. Unfortunately repeat Blood Cultures were not obtained following identification of Staph on blood cultures - repeat set from 10/02 currently pending. Will need minimum 2 weeks of IV therapy from first clear blood culture if no evidence of endocarditis. (2) UTI (urinary tract infection): Current visit: Yes Status: Acute Completed 7 day course of antibiotics. (3) Alcohol withdrawal delirium: Current visit: Yes Status: Acute Resolved. CIWA discontinued today. (4) Abnormal EKG: Current visit: Yes Status: Acute In setting of electrolyte abnormalities, significance unclear. Minimal and equivocal troponin elevation downtrended and normalized. Monitored on telemetry without significant events. Consider further work-up in the future once stable. (5) Dysphagia: Current visit: Yes Status: Chronic With evidence of potential esophageal mass in patient with history of ETOH and Tobacco. Will likely require EGD with intervention acutely - possibility for transfer to [facility] for procedure, and back once completed. Will also discuss regarding potential concurrent DEEDEE to rule out endocarditis. (6) PAD (peripheral artery disease): Current visit: Yes Status: Chronic Patient already follows with vascular at [facility]. No signs of critical limb ischemia. Continue statin therapy. Also on BB. Restart DB-I and low dose aspirin. (7) Breast cancer: Current visit: Yes Status: Chronic IDC, ER/AZ +, s/p lumpectomy and XRT, noncompliant with tamoxifen therapy (8) Urinary retention: Current visit: Yes Status: Acute It is possible that this was precipitated by administration of ativan. S/ p benítez - now with successful voiding trial. Resolved. (9) Normocytic anemia: Current visit: Yes Status: Acute Potentially anemia of chronic disease based on normal iron, Low TIBC and elevated Ferritin. B12, FA, and TSH all checked and normal. Currently with mild drop. Monitor closely. Remains on IV PPI for GI Prophylaxis. (10) Malnutrition: Current visit: Yes Status: Acute Associated with chronic severe alcohol use disorder as well as dysphagia with decreased oral intake of solids due to potential esophageal mass. Continue to maximize nutrition. Also with mild but worsening hyponatremia - also hypochloremic. May be on basis of dehydration. Gently hydrate and reassess with repeat Na this afternoon. (11) DVT prophylaxis: Current visit: Yes Status: Acute Lovenox SC. Subjective Interval history since last seen: 53 year old female with a prior history of ETOH abuse admitted from [facility] Emergency Department on 09/26/2018 with concern for alcohol withdrawl and sepsis from Pneumonia. Ms. Welch has a prior medical history significant for breast cancer s/p lumpectomy and XRT, noncompliant with tamoxifen therapy. She has also had dysphagia with solids, scheduled for evaluation but non-compliant with visits At [facility]. She uses tobacco and has a history of ETOH abuse. Other history also includes PAD, hypertension, and hypothyroidism. The patient was apparently driving to [place] on the day of admission when she suddenly felt palpitations , pulled over, and dialed 911. EMS found her to be in sinus tachycardia in 130's , and hypoxic with a pulse ox in the high 80's. According to reports, the patient reported chest pain to EMS. Though she was initially oriented, the patient was felt to be somewhat disoriented even on arrival to the emergency room. Her home medications were verified with her outpatient pharmacy - evidently however the patient had not been taking any of her medications. She also reported a 6 pack of beer daily drinking history at that time, with her last drink occuring 3 days prior to admission. However, she now admits to 3-6 mixed drinks nightly, each consisting of approximately 3 shots of [employer]. Soon after arrival she was noted to be agitated, restless, and suspected to have begun withdrawing from alcohol. There was no witnessed seizure activity, but there was a noticeable change in mental status. Her CT of the head was negative. She was found to be retaining urine (1.4 L out upon insertion of a benítez catheter). She was also noted to have a multi-focal pneumonia by CT of the chest. Following her admission she was also noted to have a UTI. Since the time of her admission Mrs. Welch has undergone alcohol withdrawl which now appears resolved. She is on treatment for an MSSA bacteremia, along with an E.Coli and Enterococcus UTI. She continues to have dysphagia to solids, but is tolerating a modified diet. She has undergone a successfull void trial and her benítez is discontinued. She continues to have profound hypomagnesemia despite aggressive repletion, but her hypokalemia has resolved. An ECHO (TTE) was performed in the setting of MSSA bacteremia, and showed no obvious evidence of endocarditis. No overnight events reported. Remains afebrile. Exam Narrative Exam Narrative: General: Thin woman, appears older than stated age. Cmfortable and in no acute distress. Neck: Supple CV: Regular, nontachycardic, S1S2, No rubs or gallops. Potential 2/6 LLSB murmur on exam. Pulmonary: Clear to auscultation bilaterally, no crackles, wheezing, or rhonchi Abdomen: + Bowel Sounds, soft, nontender, nondistended Vascular: No lower extremity edema Psych: Normal mood and affect. Objective Objective Clinical Data: Abnormal lab results 10/03/18 10/03/18 Range/Units 06:46 06:46 RBC 2.52 L (4.00-5.20) m/cumm Hgb 8.1 L (12.0-15.5) g/dL Hct 24.7 L (36.0-46.0) % MCV 98.0 H (80-95) fL RDW 14.8 H (11.7-14.6) % Absolute Lymphocytes 1.12 L (1.2-3.4) k/cumm Sodium 129 L (136-145) mmol/L Chloride 97 L (98-107) mmol/L BUN 3 L (7-18) mg/dL Creatinine 0.47 L (0.55-1.02) mg/dL Calcium 8.3 L (8.5-10.1) mg/dL Magnesium 1.2 L (1.8-2.4) mg/dL Vital Signs Temperature 37.2 C 10/03/18 07:15 Temperature Source Temporal Artery Scan 10/03/18 07:15 Pulse 93 H 10/03/18 07:17 Pulse Rhythm Regular 10/03/18 07:15 Pulse 96 H 10/03/18 07:17 Respiratory Rate 24 10/03/18 07:17 Respiratory Effort Non-Labored 10/03/18 07:15 Respiratory Depth Normal 10/03/18 07:15 Respiratory Pattern Normal 10/03/18 07:15 Blood Pressure 149/79 H 10/03/18 07:17 Blood Pressure Mean 90 10/03/18 07:17 Blood Pressure Position Supine 09/29/18 19:00 Pulse Oximetry 97 10/03/18 07:15 Oxygen Delivery Method Room Air 10/03/18 07:15 Oxygen Flow Rate 0 10/03/18 07:15 Pain Level 5 10/03/18 07:33 Comment 10/03/18 07:15 Intake & Output 10/02/18 10/02/18 10/03/18 11:59 23:59 11:59 Intake Total 600 / 600 2412 / 2412 870 / 870 Output Total 1400 / 1400 650 / 650 2100 / 2100 Balance -800 / -800 1762 / 1762 -1230 / -1230 Weight 52 kg 51 kg Intake: IV 200 / 200 662 / 662 320 / 320 Oral 400 / 400 1750 / 1750 550 / 550 Output: Urine 1400 / 1400 450 / 450 1700 / 1700 Stool 200 / 200 400 / 400 Other: Urine Color Yellow Yellow Yellow Urine Appearance Clear Clear Clear Urine Odor None Normal Normal Comment mixed with stool Pt incontinent of small amount of urine and brief. Stool Occult Blood Negative Negative Negative Stool Size Small Stool Characteristics Liquid Soft Soft Brown Brown Voiding Methods Bedside Commode Bedside Commode Laboratory Results WBC 6.67 k/cumm (4.4-10.8) 10/03/18 06:46 RBC 2.52 m/cumm (4.00-5.20) L 10/03/18 06:46 Hgb 8.1 g/dL (12.0-15.5) L 10/03/18 06:46 Hct 24.7 % (36.0-46.0) L 10/03/18 06:46 MCV 98.0 fL (80-95) H 10/03/18 06:46 MCH 32.1 pg (27.0-33.0) 10/03/18 06:46 MCHC 32.8 g/dL (32.0-36.0) 10/03/18 06:46 RDW 14.8 % (11.7-14.6) H 10/03/18 06:46 Plt Count 219 x1000/uL (130-400) 10/03/18 06:46 MPV 9.7 fL (8.0-11.0) 10/03/18 06:46 Immature Gran % 0.1 10/03/18 06:46 Neutrophils % 75.7 10/03/18 06:46 Lymphocytes % 16.8 10/03/18 06:46 Monocytes % 6.6 10/03/18 06:46 Eosinophils % 0.4 10/03/18 06:46 Basophils % 0.4 10/03/18 06:46 Absolute Neutrophils 5.04 k/cumm (1.2-6.7) 10/03/18 06:46 Absolute Lymphocytes 1.12 k/cumm (1.2-3.4) L 10/03/18 06:46 Absolute Monocytes 0.44 k/cumm (0.11-0.7) 10/03/18 06:46 Absolute Eosinophils 0.03 k/cumm (0.0-0.7) 10/03/18 06:46 Absolute Basophils 0.03 k/cumm (0.0-0.2) 10/03/18 06:46 Differential Comment Rbc morph reviewed 09/28/18 06:23 RBC Morphology See below 09/28/18 06:23 Polychromasia Present 09/28/18 06:23 Macrocytosis 1+ 09/28/18 06:23 PT 10.6 sec (9.3-10.8) 09/28/18 06:23 INR 1.1 (1.0-3.5) 09/28/18 06:23 APTT 22.6 sec (21.0-31.4) 09/26/18 16:30 Sodium 129 mmol/L (136-145) L 10/03/18 06:46 Potassium 3.9 mmol/L (3.5-5.1) 10/03/18 06:46 Chloride 97 mmol/L (98-107) L 10/03/18 06:46 Carbon Dioxide 22.7 mmol/L (21.0-32.0) 10/03/18 06:46 Anion Gap 9.3 mmol/L (3-11) 10/03/18 06:46 BUN 3 mg/dL (7-18) L 10/03/18 06:46 Creatinine 0.47 mg/dL (0.55-1.02) L 10/03/18 06:46 Estimated GFR/1.73 m2 >= 60.00 (mL/min/1.73m2) 10/03/18 06:46 Glucose 94 mg/dL (70-100) 10/03/18 06:46 Lactate 1.3 mmol/L (0.6-1.4) 09/27/18 07:23 Calcium 8.3 mg/dL (8.5-10.1) L 10/03/18 06:46 Magnesium 1.2 mg/dL (1.8-2.4) L 10/03/18 06:46 Iron 128 ug/dL (50-175) 09/27/18 07:23 TIBC 153 ug/dL (250-450) L 09/27/18 07:23 Transferrin % Sat 84 % (15-50) H 09/27/18 07:23 Ferritin 599 ng/mL (8-388) H 09/27/18 07:23 Total Bilirubin 0.7 mg/dL (0.2-1.0) 09/27/18 07:23 Conjugated Bilirubin 0.43 mg/dL (0.00-0.20) H 09/27/18 07:23 AST 91 U/L (15-37) H 09/27/18 07:23 ALT 19 U/L (12-78) 09/27/18 07:23 Alkaline Phosphatase 84 U/L (46-116) 09/27/18 07:23 Troponin I 0.06 ng/mL (0.00-0.06) 09/27/18 07:23 Total Protein 6.5 g/dL (6.4-8.2) 09/27/18 07:23 Albumin 2.0 g/dL (3.4-5.0) L 09/29/18 09:03 Triglycerides 114 mg/dL (30-150) 09/27/18 07:23 Total Cholesterol 116 mg/dL (50-200) 09/27/18 07:23 LDL Cholesterol Direct 71 mg/dL (<100) 09/27/18 07:23 HDL Cholesterol 25 mg/dL (40-60) L 09/27/18 07:23 Vitamin B12 1404 pg/mL (193-986) H 09/27/18 07:23 Folate > 20.0 ng/mL (8.6-20.0) H 09/27/18 07:23 TSH Cancelled 09/26/18 17:58 Urine Color Yellow (Yellow) 09/26/18 18:50 Urine Clarity Sl cloudy 09/26/18 18:50 Urine pH 7.0 (5-8) 09/26/18 18:50 Ur Specific [place] 1.015 (1.005-1.025) 09/26/18 18:50 Urine Protein Negative mg/dL (Negative) 09/26/18 18:50 Urine Ketones Negative mg/dL (Negative) 09/26/18 18:50 Urine Blood Moderate (Negative) H 09/26/18 18:50 Urine Nitrite Negative (Negative) 09/26/18 18:50 Urine Bilirubin Negative (Negative) 09/26/18 18:50 Urine Urobilinogen 0.2 EU/dL (Up TO 0.2) 09/26/18 18:50 Ur Leukocyte Esterase Negative (Negative) 09/26/18 18:50 Urine RBC 0-2 (0-2) 09/26/18 18:50 Urine WBC 3-5 HPF (0-5) 09/26/18 18:50 Ur Epithelial Cells Few HPF (Negative) 09/26/18 18:50 Urine Crystals Negative HPF (Negative) 09/26/18 18:50 Urine Bacteria Packed HPF (Negative) 09/26/18 18:50 Urine Casts Negative LPF (Negative) 09/26/18 18:50 Urine Mucus Negative (Negative) 18 18:50 Ur Culture Indicated? Yes 09/26/18 18:50 Urine Glucose Negative mg/dL (Negative) 09/26/18 18:50 Vancomycin Trough 17.2 ug/mL (10.0-20.0) 09/28/18 16:50 Urine Opiates Screen Negative (Negative) 09/26/18 18:50 Urine Methadone Screen Negative (Negative) 09/26/18 18:50 Ur Barbiturates Screen Negative (Negative) 09/26/18 18:50 Ur Tricyclics Screen Negative (Negative) 09/26/18 18:50 Ur Amphetamines Screen Negative (Negative) 09/26/18 18:50 U Benzodiazepines Scrn Negative (Negative) 09/26/18 18:50 Urine Cocaine Screen Negative (Negative) 09/26/18 18:50 Ur THC Screen Negative (Negative) 09/26/18 18:50 Ethyl Alcohol < 3.0 mg/dL (<3) 09/26/18 16:30
[2018-10-03] MEDS: Calcium Carbonate 1.5 GM TAB PO ×2 (11:26→19:46)
--- NOTE | 2018-10-03 13:31 | PDOC.CMPRO ---
- If Service Date Differs Date of service: 10/03/18 Time of Service: 13:31 Care Management Progress Note S/O: CM met with Cece at the bedside she is alert and engaged in conversation. She states that she wants [facility] (boyfriend) involved with her care and that she would like him to understand her health condition. She states he is not always supportive when she has been ill and she thinks if he is included he would be more caring. CM reviewed current plan with Cece including IV antibiotics and going to [facility] for test while she is inpatient. She understands that she will need ongoing antibiotics. She is unsure where she wants to discharge to when she is ready. She is not sure that she could not use alcohol if she was to return to 's she is also is not sure at this point if she wants to stop using alcohol. She knows that if she returns to [employer] it would be difficult. CM offered to continue to review support services with her in the community including CI nurse CM as well as IOP. Cece is concerned about her health status and remains focused on diagnosis and feeling better. A: Cece is a 53 year old female admitted to [facility] 09/26/18 with ETOH withdrawal, SIRS, Hypokalemia and Hypomagnesemia. She continues IV antibiotics treatment for an MSSA bacteremia, along with an E.Coli and Enterococcus UTI. She continues to have difficulty swallowing, but is tolerating a modified diet. Her urinary cath has been discontinued and she is voiding on her own. P: Cece will need to have a EGD and DEEDEE while at [facility] to determine course of treatment. She will be a down and back by ambulance. 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 She has follow up scheduled with Per Assessment Nurse at [facility] on 10/08/18 at 4:15. Continued discussion central to substance abuse support services in the community. She will transport home via private vehicle with her family at time of discharge.
--- NOTE | 2018-10-03 13:53 | CMPROGNOTE_ITS ---
- If Service Date Differs Date of service: 10/03/18 Time of Service: 13:31 Care Management Progress Note S/O: CM met with Cece at the bedside she is alert and engaged in conversation. She states that she wants PJ (boyfriend) involved with her care and that she would like him to understand her health condition. She states he is not always supportive when she has been ill and she thinks if he is included he would be more caring. CM reviewed current plan with Cece including IV antibiotics and going to [facility] for test while she is inpatient. She understands that she will need ongoing antibiotics. She is unsure where she wants to discharge to when she is ready. She is not sure that she could not use alcohol if she was to return to 's she is also is not sure at this point if she wants to stop using alcohol. She knows that if she returns to [employer] it would be difficult. CM offered to continue to review support services with her in the community including CI nurse CM as well as IOP. Cece is concerned about her health status and remains focused on diagnosis and feeling better. A: Cece is a 53 year old female admitted to [facility] 09/26/18 with ETOH withdrawal , SIRS, Hypokalemia and Hypomagnesemia. She continues IV antibiotics treatment for an MSSA bacteremia, along with an E.Coli and Enterococcus UTI. She continues to have difficulty swallowing, but is tolerating a modified diet. Her urinary cath has been discontinued and she is voiding on her own. P: Cece will need to have a EGD and DEEDEE while at [facility] to determine course of treatment. She will be a down and back by ambulance. Cece will plan to return home when medically ready she will require intermediate antibiotics. She has follow up scheduled with Table Setter at [facility] on 10/08/18 at 4:15. Continued discussion central to substance abuse support services in the community. She will transport home via private vehicle with her family at time of discharge.
[2018-10-03] MEDS: Nicotine 14 MG/24 HR PATCH TD (14:03)
[2018-10-03 14:06] LABS: Sodium 130 mmol/L (136-145)
[2018-10-03] MEDS: Rosuvastatin 5 MG TAB PO (21:27)
[2018-10-03] MEDS: Enoxaparin 40 MG/0.4 ML SYR SC (21:27)
[2018-10-03] MEDS: Pantoprazole 40 MG VIAL IVP (21:28)
--- NOTE | 2018-10-03 23:18 | NUR.NOTE ---
1600 pt is using nicotine inhaler in room. nicotine patch removed form pt rt shoulder [id number]
[2018-10-04] VITALS (21 sets, daily range): BP systolic 108–128; BP diastolic 52–76; PULSE 77–97; RESP 12–29; TEMP 36.4–37.8; O2SAT 89–99
[2018-10-04 06:10] LABS: Vitamin D 25 Total 47.5 ng/ml (30-100)
[2018-10-04 07:25] LABS: Abs Immature Grans 0.01 k/cumm (0.0-0.09); Absolute Basophil Count 0.03 k/cumm (0.0-0.2); Absolute Eosinophil Count 0.02 k/cumm (0.0-0.7); Absolute Monocyte Count 0.48 k/cumm (0.11-0.7); Absolute Neutrophil Count 4.15 k/cumm (1.2-6.7); Basophils % 0.5; Eosinophils % 0.3; HCT 23.5 % (36.0-46.0); HGB 7.8 g/dL (12.0-15.5); Immature Grans % 0.2; Mean Corp. HGB Concentration 33.2 g/dL (32.0-36.0); Mean Corpuscular Hemoglobin 32.2 pg (27.0-33.0); Mean Corpuscular Volume 97.1 fL (80-95); Mean Platelet Volume 9.6 fL (8.0-11.0); Monocytes % 8.3; Neutrophils % 71.7; Platelet Count 232 x1000/uL (130-400); RBC 2.42 m/cumm (4.00-5.20); RBC Distribution Width 14.9 % (11.7-14.6); White Blood Cell Count 5.79 k/cumm (4.4-10.8)
[2018-10-04] MEDS: Nicotine 14 MG/24 HR PATCH TD (07:33)
[2018-10-04] MEDS: Levothyroxine 50 MCG TAB PO (07:33)
[2018-10-04 07:44] LABS: Anion Gap 8.6 mmol/L (3-11); BUN 3 mg/dL (7-18); CO2 22.4 mmol/L (21.0-32.0); CREATININE 0.54 mg/dL (0.55-1.02); Calcium 8.3 mg/dL (8.5-10.1); Chloride 99 mmol/L (98-107); Glucose 96 mg/dL (70-100); Magnesium 1.3 mg/dL (1.8-2.4); Potassium 3.9 mmol/L (3.5-5.1); Sodium 130 mmol/L (136-145)
[2018-10-04] MEDS: Lactobacillus Acidophilus CAP 1 CAP PO ×2 (08:13→19:35)
[2018-10-04] MEDS: Magnesium Oxide 400 MG TAB 800 MG PO ×3 (08:13→19:35)
[2018-10-04] MEDS: Metoprolol 50 MG TAB PO ×2 (08:14→19:35)
[2018-10-04] MEDS: Thiamine 100 MG TAB PO (08:14)
[2018-10-04] MEDS: Folic Acid 1 MG TAB PO (08:14)
[2018-10-04] MEDS: Lisinopril 10 MG TAB PO (08:14)
[2018-10-04] MEDS: Aspirin 81 MG CHEW PO (08:14)
[2018-10-04] MEDS: Multivitamin TAB 1 TAB PO (08:14)
[2018-10-04] MEDS: MAGNESIUM SULFATE 4 GM/100 ML BAG IVPB (08:18)
[2018-10-04] MEDS: Potassium Chloride 20 MEQ TABCR PO (09:25)
--- NOTE | 2018-10-04 09:30 | W.SPEECHPG ---
Date of service: 10/04/18 Time of Service: 08:00 Speech Therpy Note Note: SUBJECTIVE Pt is sitting up in bed. She greets me with good direct and sustained eye contact. She communicates well, showing both comprehension and use of humor. Pt reportedly doing better with both sepsis and hypokalemia resolved, ETOH withdrawl completed and benítez removed. Still being treated for UTI, MSSA bacteremia and hypomagnesemia. Pt reports a 2-3 day h\o a sore throat. OBJECTIVE Nursing reports the following: - Temp: 37.6 - O2 sat: 94 on RA - LS: CTA & diminished B in the presence of IV ABX - An EGD has not yet been scheduled. Regarding swallowing, the following is noted: - No jael s/s aspiration/penetration with intake of Puree food, [place]-thick liquid and Thin liquid (both single and consecutive swallows by both cup and straw). No regurgitation. No c/o sore throat. No Dysphagia Advanced food was present for this meal. - Small & medium-sized whole pills and large pills broken in half, all with a Thin liquid wash: No jael s/s aspiration/penetration but within an estimated time of less than 1 minute post-swallow, pt begins to hypersalivate and then regurgitates some of the pills, Puree food and both [place]-thick and Thin liquids. Later, pt is given some of the pills that were regurgitated as new pills crushed in puree. Again, no jael s/s aspiration/penetration but no subsequent hypersalivation or regurgitation this time. Pt is observed to self-feed without assistance. Time is spent reviewing possible cause of regurgitation as decreased esophageal transit. Again, discussed option of doing a trial of either Liquidized or Puree consistency diet which would require less esophageal space and effort for transit. However, pt is consistent in her refusal of this option. Pharmacy is consulted regarding other options besides whole pill for both Effexor and calcium. They state that calcium can be crushed and Effexor can be a capsule that can be opened so that contents can be mixed with a Puree food. Clinical Review Nurse comes in to talk with pt regarding likes and dislikes of food & liquid flavors in an effort to present pt with foods & liquids she will take in order to meet a 1600 calorie goal. ASSESSMENT It appears that whole pills are problematic with regard to esophageal transit but that crushed pills in puree, Puree foods and both [place]-thick and Thin liquids are not. PLAN Recommend elimination of whole pills, staying instead with either crushed pills in puree, liquid medication or nonoral routes of delivery. Continue ST to monitor pt's toleration of the above p. o. medication consistencies.
--- NOTE | 2018-10-04 09:59 | SATEXT_ITS ---
October 04, 2018 1000h Assessment: Ms. Welch presents with sepsis, pneumonia and alcohol withdrawal. She reports that prior to admission she had eating nothing for 6 days. Her intake is improving now, however it had been poor to fair for now an additional week from the week prior to admission where she did not eat. She has some mild fat loss that is apparent around her eyes and cheeks etc. She reports that she did not intend to lose body fat. She is 59 and 52 kg. Her BMI is 23.2 kg/m2 which is WNL. She has been drinking [place] Instant Breakfast, Ensure Clear, puddings, ice cream. She reports that she will refuse pureed foods and she does not like the Ensure Plus. Her diet order is Dysphagia advanced with thin liquids and moistened meats and with liquid nutritional supplements. Her estimated energy needs are 1560 kcal/day (30 kcal/kg/day) Her estimated protein needs are 62g/day (1.2g/kg/day). Her estimated fluid needs are 1560 ml/ day (30 ml/kg/day) unless she needs more or less for her medical condition. Nutritional Diagnosis: Moderate malnutrition based on the objective parameters noted above (prolonged poor PO intake and mild fat loss in the orbital area) as indicated by the clinical characteristics of malnutrition from the AND/ASPEN guidelines. Intervention: Discussed with Ms. Welch her caloric needs to improve her nutritional status and restore any lost lean body mass. Ms. Welch agreed to [place] Instant Breakfast, Ensure Clear, puddings, ice cream. Explained to Ms. Welch that I would make up her menus to meet her caloric needs using mostly these foods. Ms. Welch verbalized that she understood and verbalized a willingness to improve her nutritional status by eating what she needs. Monitoring and Evaluation: 1. Will monitor her weight, tolerance to meal plan, and PO intake. 2. Will evaluate nutrition care plan ongoing and adjust as needed. Thank you for the consult.
--- NOTE | 2018-10-04 10:08 | PNE_ITS ---
Date of service: 10/04/18 Time of Service: 08:00 Speech Therpy Note Note: SUBJECTIVE Pt is sitting up in bed. She greets me with good direct and sustained eye contact. She communicates well, showing both comprehension and use of humor. Pt reportedly doing better with both sepsis and hypokalemia resolved, ETOH withdrawl completed and benítez removed. Still being treated for UTI, MSSA bacteremia and hypomagnesemia. Pt reports a 2-3 day h\o a sore throat. OBJECTIVE Nursing reports the following: - Temp: 37.6 - O2 sat: 94 on RA - LS: CTA & diminished B in the presence of IV ABX - An EGD has not yet been scheduled. Regarding swallowing, the following is noted: - No jael s/s aspiration/penetration with intake of Puree food, [place]-thick liquid and Thin liquid (both single and consecutive swallows by both cup and straw). No regurgitation. No c/o sore throat. No Dysphagia Advanced food was present for this meal. - Small & medium-sized whole pills and large pills broken in half, all with a Thin liquid wash: No jael s/s aspiration/penetration but within an estimated time of less than 1 minute post-swallow, pt begins to hypersalivate and then regurgitates some of the pills, Puree food and both [place]-thick and Thin liquids. Later, pt is given some of the pills that were regurgitated as new pills crushed in puree. Again, no jael s/s aspiration/penetration but no subsequent hypersalivation or regurgitation this time. Pt is observed to self-feed without assistance. Time is spent reviewing possible cause of regurgitation as decreased esophageal transit. Again, discussed option of doing a trial of either Liquidized or Puree consistency diet which would require less esophageal space and effort for transit. However, pt is consistent in her refusal of this option. Pharmacy is consulted regarding other options besides whole pill for both Effexor and calcium. They state that calcium can be crushed and Effexor can be a capsule that can be opened so that contents can be mixed with a Puree food. Cloud Automation Tester comes in to talk with pt regarding likes and dislikes of food & liquid flavors in an effort to present pt with foods & liquids she will take in order to meet a 1600 calorie goal. ASSESSMENT It appears that whole pills are problematic with regard to esophageal transit but that crushed pills in puree, Puree foods and both [place]-thick and Thin liquids are not. PLAN Recommend elimination of whole pills, staying instead with either crushed pills in puree, liquid medication or nonoral routes of delivery. Continue ST to monitor pt's toleration of the above p. o. medication consistencies.
[2018-10-04 11:02] LABS: Prealbumin 5 mg/dL (20-40)
--- NOTE | 2018-10-04 11:47 | PDOC.CMPRO ---
- If Service Date Differs Date of service: 10/04/18 Time of Service: 11:47 Care Management Progress Note S/O: Cece was lying in bed in the ICU when CM visits her this morning. She is engaged in conversation, makes good eye contact, and is talkative. Cece reports that she is feeling much better today than she had over the past week and is ready to go out and constitution party for [employer]. Cece reports that she has concerns about her current living situation as she resides alone in [place] and has multiple steps to access her home, and a wood stove. Her boyfriend, RHODA, has recently purchased a home in [place] with an apartment attached and she is hoping she can move in there once discharged from the hospital. Cece is concerned about taking time off from work; CM and MD assured her that if she needed a MD note for work that we will supply one. 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 Cece had a speech consult this morning due to concerns about her ability take whole pills. Per nursing, Cece vomited this morning immediately following administration of medications. Speech has recommended that Cece not have whole pills; recommend crushed pills in puree vs. liquid medication vs. non-oral routes of delivery. Cece will transport (down and back) to [facility] on Thursday, 10/05 for EGD and DEEDEE. A: Cece is a 53 year old female admitted to [facility] 09/26/18 with ETOH withdrawal, SIRS, Hypokalemia and Hypomagnesemia. She continues IV antibiotic treatment for an MSSA bacteremia, E.Coli and Enterococcus UTI. P: Cece will have an EGD and DEEDEE on 10/05 to determine her course of treatment. Anticipate Cece will require shelter IV antibiotics and then discharge home with no services. Cece will transport via private vehicle with her family at time of discharge. CM will continue to offer support to patient and care team regarding discharge planning and disposition.
--- NOTE | 2018-10-04 12:00 | PGE_ITS ---
Date of Service Date of service: 10/04/18 Time of Service: 11:59 Assessment and Plan (1) Sepsis: Current visit: Yes Status: Acute Though tachycardia and altered mental status could have also been related to alcohol withdrawal, evidence of pneumonia, UTI, as well as lactic acidosis make sepsis likely diagnosis. Currently resolved. Currently with MSSA Bacteremia and a pansensitive E.Coli UTI. Also with growth of enterococcus faecalis on Urine Culture, but with 50-100,000 colonies / ml. TTE without evidence of endocarditis. Initially maintained on VAncomycin and Pip-Tazo, narrowed to Oxacillin and Ancef , now discontinued as patient has now received 7 days of antibiotic therapy with appropriate coverage for UTI. Continue Day #9 of antibiotic therapy for MSSA bacteremia. Plan will be for an eventual DEEDEE to ensure lack of endocarditis prior to determination of the length of antibiotic course, especially given murmur. Unfortunately repeat Blood Cultures were not obtained following identification of Staph on blood cultures - repeat set from 10/02 with no growth X24 hours. Will need minimum 2 weeks of IV therapy from first clear blood culture if no evidence of endocarditis. (2) UTI (urinary tract infection): Current visit: Yes Status: Acute Completed 7 day course of antibiotics. (3) Alcohol withdrawal delirium: Current visit: Yes Status: Acute Resolved. CIWA discontinued previously. (4) Abnormal EKG: Current visit: Yes Status: Acute In setting of electrolyte abnormalities, acute illness including sepsis. Significance unclear. Minimal and equivocal troponin elevation downtrended and normalized. Monitored on telemetry without significant events. Consider further work-up in the future once stable. (5) Dysphagia: Current visit: Yes Status: Chronic With evidence of potential esophageal mass in patient with history of ETOH and Tobacco. Will require EGD with intervention acutely - tentatively scheduled for transfer [place] [facility] [place], and back once completed. Have also discuss regarding potential concurrent DEEDEE to rule out endocarditis, likely not feasible due to scheduling conflicts. NPO > Midnight tonight. Will hold am lovenox. (6) PAD (peripheral artery disease): Current visit: Yes Status: Chronic Patient already follows with vascular at [facility]. No signs of critical limb ischemia. Continue statin therapy. Also on BB. Restarted DB-I and low dose aspirin. (7) Breast cancer: Current visit: Yes Status: Chronic IDC, ER/IL +, s/p lumpectomy and XRT, noncompliant with tamoxifen therapy (8) Urinary retention: Current visit: Yes Status: Acute It is possible that this was precipitated by administration of ativan. S/ p benítez - now with successful voiding trial. Resolved. (9) Normocytic anemia: Current visit: Yes Status: Acute Potentially anemia of chronic disease based on normal iron, Low TIBC and elevated Ferritin. B12, FA, and TSH all checked and normal. Currently with mild but continued drop. Patient has a history of PAD on antiplatelet therapy, as well as a strong history of ETOH abuse - stool for occult blood is still pending and patient remains on IV PPI therapy. Monitor closely. (10) Malnutrition: Current visit: Yes Status: Acute Associated with chronic severe alcohol use disorder as well as dysphagia with decreased oral intake of solids due to potential esophageal mass. Continue to maximize nutrition. Also with mild but worsening hyponatremia - also hypochloremic. May be on basis of dehydration. Appropriate improvement with gentle hydration. (11) DVT prophylaxis: Current visit: Yes Status: Acute Hold Lovenox SC tomorrow morning in preparation for EGD. Subjective Interval history since last seen: 53 year old female with a prior history of ETOH abuse admitted from [facility] Emergency Department on 09/26/2018 with concern for alcohol withdrawl and sepsis from Pneumonia. Ms. Welch has a prior medical history significant for breast cancer s/p lumpectomy and XRT, noncompliant with tamoxifen therapy. She has also had dysphagia with solids, scheduled for evaluation but non-compliant with visits At [facility]. She uses tobacco and has a history of ETOH abuse. Other history also includes PAD, hypertension, and hypothyroidism. The patient was apparently driving to [place] on the day of admission when she suddenly felt palpitations , pulled over, and dialed 911. EMS found her to be in sinus tachycardia in 130's , and hypoxic with a pulse ox in the high 80's. According to reports, the patient reported chest pain to EMS. Though she was initially oriented, the patient was felt to be somewhat disoriented even on arrival to the emergency room. Her home medications were verified with her outpatient pharmacy - evidently however the patient had not been taking any of her medications. She also reported a 6 pack of beer daily drinking history at that time, with her last drink occuring 3 days prior to admission. However, she now admits to 3-6 mixed drinks nightly, each consisting of approximately 3 shots of [employer]. Soon after arrival she was noted to be agitated, restless, and suspected to have begun withdrawing from alcohol. There was no witnessed seizure activity, but there was a noticeable change in mental status. Her CT of the head was negative. She was found to be retaining urine (1.4 L out upon insertion of a benítez catheter). She was also noted to have a multi-focal pneumonia by CT of the chest. Following her admission she was also noted to have a UTI. Since the time of her admission Mrs. Welch has undergone alcohol withdrawl which now appears resolved. She is on treatment for an MSSA bacteremia, along with an E.Coli and Enterococcus UTI. She has a murmur on exam, with an essentially normal TTE that also showed no obvious evidence of endocarditis. She continues to have dysphagia to solids, but is tolerating a modified diet, now tentatively scheduled for an EGD at [facility] tomorrow. She has undergone a successfull void trial and her benítez is discontinued. She continues to have profound hypomagnesemia despite aggressive repletion, but her hypokalemia has resolved. She is also anemic, with a continued but mild drop in hemoglobin. No overnight events reported. Remains afebrile. Exam Narrative Exam Narrative: General: Thin woman, appears older than stated age. Comfortable and in no acute distress. Neck: Supple CV: Regular, nontachycardic, S1S2, No rubs or gallops. 3/6 LLSB murmur on exam. Pulmonary: Clear to auscultation bilaterally, no crackles, wheezing, or rhonchi Abdomen: + Bowel Sounds, soft, nontender, nondistended Vascular: No lower extremity edema Psych: Normal mood and affect. Objective Objective Clinical Data: Abnormal lab results 10/03/18 10/04/18 10/04/18 Range/Units 13:45 07:08 07:08 RBC 2.42 L (4.00-5.20) m/cumm Hgb 7.8 L (12.0-15.5) g/dL Hct 23.5 L (36.0-46.0) % MCV 97.1 H (80-95) fL RDW 14.9 H (11.7-14.6) % Absolute Lymphocytes 1.10 L (1.2-3.4) k/cumm Sodium 130 L 130 L (136-145) mmol/L BUN 3 L (7-18) mg/dL Creatinine 0.54 L (0.55-1.02) mg/dL Calcium 8.3 L (8.5-10.1) mg/dL Magnesium 1.3 L (1.8-2.4) mg/dL Vital Signs Temperature 37.6 C H 10/04/18 07:57 Temperature Source Temporal Artery Scan 10/04/18 07:57 Pulse 87 10/04/18 07:34 Pulse Rhythm Regular 10/04/18 07:50 Pulse 87 10/04/18 07:34 Respiratory Rate 16 10/04/18 07:34 Respiratory Effort Non-Labored 10/04/18 07:50 Respiratory Depth Normal 10/04/18 07:50 Respiratory Pattern Normal 10/04/18 07:50 Blood Pressure 125/66 10/04/18 07:34 Blood Pressure Mean 78 10/04/18 07:34 Blood Pressure Position Supine 09/29/18 19:00 Pulse Oximetry 97 10/03/18 19:42 Oxygen Delivery Method Room Air 10/03/18 21:01 Oxygen Flow Rate 0 10/03/18 21:01 Pain Level 0 10/03/18 21:01 Comment 10/03/18 07:15 Intake & Output 10/03/18 10/03/18 10/04/18 11:59 23:59 11:59 Intake Total 920 / 920 2400.000 / 2400.000 500 / 500 Output Total 2250 / 2250 1600 / 1600 1100 / 1100 Balance -1330 / -1330 800.000 / 800.000 -600 / -600 Weight 51 kg 52 kg Intake: IV 370 / 370 1160.000 / 1160.000 100 / 100 Oral 550 / 550 1240 / 1240 400 / 400 Output: Urine 1850 / 1850 1350 / 1350 1100 / 1100 Stool 400 / 400 250 / 250 Other: Urine Color Pale Pale Yellow Yellow Yellow Straw Urine Appearance Clear Clear Clear Urine Odor Normal Normal None Comment Pt incontinent of mod amount of urine and brief. x 4 trips to commode , some mixed with urine Stool Occult Blood Negative Negative Stool Size Small Small Stool Characteristics Soft Soft Soft Brown Formed Formed Voiding Methods Bedside Commode Bedside Commode Bedside Commode Incontinent Laboratory Results WBC 5.79 k/cumm (4.4-10.8) 10/04/18 07:08 RBC 2.42 m/cumm (4.00-5.20) L 10/04/18 07:08 Hgb 7.8 g/dL (12.0-15.5) L 10/04/18 07:08 Hct 23.5 % (36.0-46.0) L 10/04/18 07:08 MCV 97.1 fL (80-95) H 10/04/18 07:08 MCH 32.2 pg (27.0-33.0) 10/04/18 07:08 MCHC 33.2 g/dL (32.0-36.0) 10/04/18 07:08 RDW 14.9 % (11.7-14.6) H 10/04/18 07:08 Plt Count 232 x1000/uL (130-400) 10/04/18 07:08 MPV 9.6 fL (8.0-11.0) 10/04/18 07:08 Immature Gran % 0.2 10/04/18 07:08 Neutrophils % 71.7 10/04/18 07:08 Lymphocytes % 19.0 10/04/18 07:08 Monocytes % 8.3 10/04/18 07:08 Eosinophils % 0.3 10/04/18 07:08 Basophils % 0.5 10/04/18 07:08 Absolute Neutrophils 4.15 k/cumm (1.2-6.7) 10/04/18 07:08 Absolute Lymphocytes 1.10 k/cumm (1.2-3.4) L 10/04/18 07:08 Absolute Monocytes 0.48 k/cumm (0.11-0.7) 10/04/18 07:08 Absolute Eosinophils 0.02 k/cumm (0.0-0.7) 10/04/18 07:08 Absolute Basophils 0.03 k/cumm (0.0-0.2) 10/04/18 07:08 Differential Comment Rbc morph reviewed 09/28/18 06:23 RBC Morphology See below 09/28/18 06:23 Polychromasia Present 09/28/18 06:23 Macrocytosis 1+ 09/28/18 06:23 PT 10.6 sec (9.3-10.8) 09/28/18 06:23 INR 1.1 (1.0-3.5) 09/28/18 06:23 APTT 22.6 sec (21.0-31.4) 09/26/18 16:30 Sodium 130 mmol/L (136-145) L 10/04/18 07:08 Potassium 3.9 mmol/L (3.5-5.1) 10/04/18 07:08 Chloride 99 mmol/L (98-107) 10/04/18 07:08 Carbon Dioxide 22.4 mmol/L (21.0-32.0) 10/04/18 07:08 Anion Gap 8.6 mmol/L (3-11) 10/04/18 07:08 BUN 3 mg/dL (7-18) L 10/04/18 07:08 Creatinine 0.54 mg/dL (0.55-1.02) L 10/04/18 07:08 Estimated GFR/1.73 m2 >= 60.00 (mL/min/1.73m2) 10/04/18 07:08 Glucose 96 mg/dL (70-100) 10/04/18 07:08 Lactate 1.3 mmol/L (0.6-1.4) 09/27/18 07:23 Calcium 8.3 mg/dL (8.5-10.1) L 10/04/18 07:08 Magnesium 1.3 mg/dL (1.8-2.4) L 10/04/18 07:08 Iron 128 ug/dL (50-175) 09/27/18 07:23 TIBC 153 ug/dL (250-450) L 09/27/18 07:23 Transferrin % Sat 84 % (15-50) H 09/27/18 07:23 Ferritin 599 ng/mL (8-388) H 09/27/18 07:23 Total Bilirubin 0.7 mg/dL (0.2-1.0) 09/27/18 07:23 Conjugated Bilirubin 0.43 mg/dL (0.00-0.20) H 09/27/18 07:23 AST 91 U/L (15-37) H 09/27/18 07:23 ALT 19 U/L (12-78) 11/19/18 07:23 Alkaline Phosphatase 84 U/L (46-116) 09/27/18 07:23 Troponin I 0.06 ng/mL (0.00-0.06) 09/27/18 07:23 Total Protein 6.5 g/dL (6.4-8.2) 09/27/18 07:23 Albumin 2.0 g/dL (3.4-5.0) L 09/29/18 09:03 Triglycerides 114 mg/dL (30-150) 09/27/18 07:23 Total Cholesterol 116 mg/dL (50-200) 09/27/18 07:23 LDL Cholesterol Direct 71 mg/dL (<100) 09/27/18 07:23 HDL Cholesterol 25 mg/dL (40-60) L 09/27/18 07:23 Vitamin B12 1404 pg/mL (193-986) H 09/27/18 07:23 25-OH Vitamin D Total 47.5 ng/ml (30-100) 10/01/18 06:45 Folate > 20.0 ng/mL (8.6-20.0) H 09/27/18 07:23 TSH Cancelled 09/26/18 17:58 Urine Color Yellow (Yellow) 09/26/18 18:50 Urine Clarity Sl cloudy 09/26/18 18:50 Urine pH 7.0 (5-8) 09/26/18 18:50 Ur Specific [place] 1.015 (1.005-1.025) 09/26/18 18:50 Urine Protein Negative mg/dL (Negative) 09/26/18 18:50 Urine Ketones Negative mg/dL (Negative) 09/26/18 18:50 Urine Blood Moderate (Negative) H 09/26/18 18:50 Urine Nitrite Negative (Negative) 09/26/18 18:50 Urine Bilirubin Negative (Negative) 09/26/18 18:50 Urine Urobilinogen 0.2 EU/dL (Up TO 0.2) 09/26/18 18:50 Ur Leukocyte Esterase Negative (Negative) 09/26/18 18:50 Urine RBC 0-2 (0-2) 09/26/18 18:50 Urine WBC 3-5 HPF (0-5) 09/26/18 18:50 Ur Epithelial Cells Few HPF (Negative) 09/26/18 18:50 Urine Crystals Negative HPF (Negative) 09/26/18 18:50 Urine Bacteria Packed HPF (Negative) 09/26/18 18:50 Urine Casts Negative LPF (Negative) 09/26/18 18:50 Urine Mucus Negative (Negative) 09/26/18 18:50 Ur Culture Indicated? Yes 09/26/18 18:50 Urine Glucose Negative mg/dL (Negative) 09/26/18 18:50 Vancomycin Trough 17.2 ug/mL (10.0-20.0) 09/28/18 16:50 Urine Opiates Screen Negative (Negative) 09/26/18 18:50 Urine Methadone Screen Negative (Negative) 09/26/18 18:50 Ur Barbiturates Screen Negative (Negative) 09/26/18 18:50 Ur Tricyclics Screen Negative (Negative) 09/26/18 18:50 Ur Amphetamines Screen Negative (Negative) 09/26/18 18:50 U Benzodiazepines Scrn Negative (Negative) 09/26/18 18:50 Urine Cocaine Screen Negative (Negative) 09/26/18 18:50 Ur THC Screen Negative (Negative) 09/26/18 18:50 Ethyl Alcohol < 3.0 mg/dL (<3) 09/26/18 16:30
--- NOTE | 2018-10-04 12:03 | CMPROGNOTE_ITS ---
- If Service Date Differs Date of service: 10/04/18 Time of Service: 11:47 Care Management Progress Note S/O: Cece was lying in bed in the ICU when CM visits her this morning. She is engaged in conversation, makes good eye contact, and is talkative. Cece reports that she is feeling much better today than she had over the past week and is ready to go out and libertarian for [employer]. Cece reports that she has concerns about her current living situation as she resides alone in [place] and has multiple steps to access her home, and a wood stove. Her boyfriend, RHODA, has recently purchased a home in [place] with an apartment attached and she is hoping she can move in there once discharged from the hospital. Cece is concerned about taking time off from work; CM and MD assured her that if she needed a MD note for work that we will supply one. 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 Cece had a speech consult this morning due to concerns about her ability take whole pills. Per nursing, Cece vomited this morning immediately following administration of medications. Speech has recommended that Cece not have whole pills; recommend crushed pills in puree vs. liquid medication vs. non-oral routes of delivery. Cece will transport (down and back) to [facility] [place], for EGD and DEEDEE. A: Cece is a 53 year old female admitted to [facility] 09/26/18 with ETOH withdrawal , SIRS, Hypokalemia and Hypomagnesemia. She continues IV antibiotic treatment for an MSSA bacteremia, E.Coli and Enterococcus UTI. P: Cece will have an EGD and DEEDEE on 10/05 to determine her course of treatment. Anticipate Cece will require terminal superintendent IV antibiotics and then discharge home with no services. Cece will transport via private vehicle with her family at time of discharge. CM will continue to offer support to patient and care team regarding discharge planning and disposition.
--- NOTE | 2018-10-04 15:28 | CHAPLAIN ---
Cece was in bed when I visited. She said she is feeling stronger. She told me she knows she as tumors or growths on her esophagus, and other places in her body, but was unaware of another that was found. She is waiting for more test results. Cece said she is taking things one day at time, a practice she learned when she had breast cancer two years ago and went through treatments at [facility]. She identified her boyfriend, RHODA, as her support. He was with me every step of the way last time, she said.
[2018-10-04] MEDS: Calcium Carbonate 1.5 GM TAB PO (19:35)
[2018-10-04] MEDS: Rosuvastatin 5 MG TAB PO (22:48)
[2018-10-04] MEDS: Pantoprazole 40 MG VIAL IVP (22:48)
[2018-10-04] MEDS: Normal Saline Flush 10 ML SYR IVP (22:48)
[2018-10-05] VITALS (9 sets, daily range): BP systolic 107–110; BP diastolic 61–66; PULSE 71–100; RESP 16–18; TEMP 36.5–37.3; O2SAT 93–98
[2018-10-05 07:25] LABS: Abs Immature Grans 0.02 k/cumm (0.0-0.09); Absolute Basophil Count 0.02 k/cumm (0.0-0.2); Absolute Eosinophil Count 0.01 k/cumm (0.0-0.7); Absolute Lymphocyte Count 1.43 k/cumm (1.2-3.4); Absolute Monocyte Count 0.65 k/cumm (0.11-0.7); Basophils % 0.2; Eosinophils % 0.1; HCT 25.2 % (36.0-46.0); HGB 8.4 g/dL (12.0-15.5); Immature Grans % 0.2; Lymphocytes % 17.5; Mean Corp. HGB Concentration 33.3 g/dL (32.0-36.0); Mean Corpuscular Hemoglobin 32.6 pg (27.0-33.0); Mean Corpuscular Volume 97.7 fL (80-95); Mean Platelet Volume 10.3 fL (8.0-11.0); Platelet Count 291 x1000/uL (130-400); RBC 2.58 m/cumm (4.00-5.20); RBC Distribution Width 15.1 % (11.7-14.6); White Blood Cell Count 8.16 k/cumm (4.4-10.8)
[2018-10-05 07:27] LABS: Absolute Neutrophil Count 6.04 k/cumm (1.2-6.7)
[2018-10-05 07:32] LABS: Anion Gap 8.8 mmol/L (3-11); BUN 5 mg/dL (7-18); CO2 23.2 mmol/L (21.0-32.0); CREATININE 0.66 mg/dL (0.55-1.02); Calcium 8.9 mg/dL (8.5-10.1); Chloride 99 mmol/L (98-107); Glucose 110 mg/dL (70-100); Magnesium 1.3 mg/dL (1.8-2.4); Potassium 3.9 mmol/L (3.5-5.1); Sodium 131 mmol/L (136-145)
[2018-10-05] MEDS: Aspirin 81 MG CHEW PO (08:11)
[2018-10-05] MEDS: Thiamine 100 MG TAB PO (08:11)
[2018-10-05] MEDS: Venlafaxine 150 MG CAPCR PO (08:11)
[2018-10-05] MEDS: Metoprolol 50 MG TAB PO ×2 (08:11→20:13)
[2018-10-05] MEDS: Lactobacillus Acidophilus CAP 1 CAP PO ×2 (08:11→20:13)
[2018-10-05] MEDS: Potassium Chloride 20 MEQ TABCR PO (08:12)
[2018-10-05] MEDS: Magnesium Oxide 400 MG TAB 800 MG PO ×3 (08:12→20:12)
[2018-10-05] MEDS: Lisinopril 10 MG TAB PO (08:12)
[2018-10-05] MEDS: Multivitamin TAB 1 TAB PO (08:12)
[2018-10-05] MEDS: Calcium Carbonate 1.5 GM TAB PO ×2 (08:12→20:12)
[2018-10-05] MEDS: Levothyroxine 50 MCG TAB PO (08:12)
[2018-10-05] MEDS: Folic Acid 1 MG TAB PO (08:12)
[2018-10-05] MEDS: MAGNESIUM SULFATE 4 GM/100 ML BAG IVPB ×2 (08:19→18:34)
--- NOTE | 2018-10-05 08:48 | PDOC.CMPRO ---
- If Service Date Differs Date of service: 10/05/18 Time of Service: 08:48 Care Management Progress Note S/O: Cece was sitting in bed in the ICU when CM visited this morning. She is engaged in conversation, makes good eye contact, and is talkative. Cece will be transporting at 0930 via [employer] to [facility] for an endoscopy and will then return to [facility] following the procedure. Cece is NPO at this time and has had all of her morning medications. A: Cece is a 53 year old female admitted to [facility] 09/26/18 with ETOH withdrawal, SIRS, Hypokalemia and Hypomagnesemia. She continues IV antibiotic treatment for an MSSA bacteremia, E.Coli and Enterococcus UTI. P: Cece will have an endoscopy on 10/05 to determine her course of treatment. Anticipate Cece will require chcf IV antibiotics and then discharge home with no services. Cece will transport via private vehicle with her family at time of discharge. CM will continue to offer support to patient and care team regarding discharge planning and disposition.
--- NOTE | 2018-10-05 08:55 | CMPROGNOTE_ITS ---
- If Service Date Differs Date of service: 10/05/18 Time of Service: 08:48 Care Management Progress Note S/O: Cece was sitting in bed in the ICU when CM visited this morning. She is engaged in conversation, makes good eye contact, and is talkative. Cece will be transporting at 0930 via [employer] to [facility] [place] an [place] and will then return to [facility] following the procedure. Cece is NPO at this time and has had all of her morning medications. A: Cece is a 53 year old female admitted to [facility] 09/26/18 with ETOH withdrawal , SIRS, Hypokalemia and Hypomagnesemia. She continues IV antibiotic treatment for an MSSA bacteremia, E.Coli and Enterococcus UTI. P: Cece will have an endoscopy on 10/05 to determine her course of treatment. Anticipate Cece will require terminal worker IV antibiotics and then discharge home with no services. Cece will transport via private vehicle with her family at time of discharge. CM will continue to offer support to patient and care team regarding discharge planning and disposition.
--- NOTE | 2018-10-05 15:58 | NUR.NOTE ---
Nursing Note: pt admitted from ICU once back from [facility]. Pt is alert and oriented times 3. VSS.
[2018-10-05] MEDS: Normal Saline Flush 10 ML SYR IVP ×2 (17:11→23:00)
[2018-10-05] MEDS: Acetaminophen 500 MG TAB 1000 MG PO (18:51)
--- NOTE | 2018-10-05 19:00 | W.PM.PROGNOT ---
Date of Service Date of service: 10/05/18 Time of Service: 19:00 Assessment and Plan (1) Sepsis: Current visit: Yes Status: Acute Though tachycardia and altered mental status could have also been related to alcohol withdrawal, evidence of pneumonia, UTI, as well as lactic acidosis make sepsis likely diagnosis. Currently resolved. Currently with MSSA Bacteremia and a pansensitive E.Coli UTI. Also with growth of enterococcus faecalis on Urine Culture, but with 50-100,000 colonies / ml. TTE without evidence of endocarditis. Initially maintained on VAncomycin and Pip-Tazo, narrowed to Oxacillin and Ancef, now discontinued as patient has now received 7 days of antibiotic therapy with appropriate coverage for UTI. Continue Day #10 of antibiotic therapy for MSSA bacteremia. Plan had been for an eventual DEEDEE to ensure lack of endocarditis prior to determination of the length of antibiotic course. However, as Esophageal mass is mid thoracic DEEDEE is very likely contraindicated. Will discuss with ID regarding length of antibiotic course. Unfortunately repeat Blood Cultures were not obtained following identification of Staph on blood cultures - repeat set from 10/02 with no growth X72 hours. (2) UTI (urinary tract infection): Current visit: Yes Status: Acute Completed 7 day course of antibiotics. (3) Alcohol withdrawal delirium: Current visit: Yes Status: Acute Resolved. CIWA discontinued previously. (4) Abnormal EKG: Current visit: Yes Status: Acute In setting of electrolyte abnormalities, acute illness including sepsis. Significance unclear. Minimal and equivocal troponin elevation downtrended and normalized. Monitored on telemetry without significant events. Consider further work-up in the future once stable. (5) Dysphagia: Current visit: Yes Status: Chronic With evidence of potential esophageal mass in patient with history of ETOH and Tobacco. EGD today with evidence of a hypoechoic mass in the thoracic esophagus, suspicious for malignancy. This was biopsied. Furthermore, evidence of abnormal appearing lymph nodes were seen in the gastric, paraesophageal, and paratracheal regions were noted. (6) PAD (peripheral artery disease): Current visit: Yes Status: Chronic Patient already follows with vascular at [facility] [place]. No signs of critical limb ischemia. Continue statin therapy. Also on BB. Restarted DB-I and low dose aspirin. (7) Breast cancer: Current visit: Yes Status: Chronic IDC, ER/HI +, s/p lumpectomy and XRT, noncompliant with tamoxifen therapy (8) Urinary retention: Current visit: Yes Status: Acute It is possible that this was precipitated by administration of ativan. S/p benítez - now with successful voiding trial. Resolved. (9) Normocytic anemia: Current visit: Yes Status: Acute Potentially anemia of chronic disease based on normal iron, Low TIBC and elevated Ferritin. B12, FA, and TSH all checked and normal. Currently with mild but continued drop. Patient has a history of PAD on antiplatelet therapy, as well as a strong history of ETOH abuse - stool for occult blood is still pending and patient remains on IV PPI therapy. Monitor closely. (10) Malnutrition: Current visit: Yes Status: Acute Associated with chronic severe alcohol use disorder as well as dysphagia with decreased oral intake of solids due to potential esophageal mass. Continue to maximize nutrition. Also with mild but worsening hyponatremia - also hypochloremic. May be on basis of dehydration. Appropriate improvement with gentle hydration. (11) DVT prophylaxis: Current visit: Yes Status: Acute Held Lovenox SC this morning in preparation for EGD. Subjective Interval history since last seen: 53 year old female with a prior history of ETOH abuse admitted from [facility] Emergency Department on 09/26/2018 with concern for alcohol withdrawl and sepsis from Pneumonia. Ms. Welch has a prior medical history significant for breast cancer s/p lumpectomy and XRT, noncompliant with tamoxifen therapy. She has also had dysphagia with solids, scheduled for evaluation but non-compliant with visits At [facility] [place]. She uses tobacco and has a history of ETOH abuse. Other history also includes PAD, hypertension, and hypothyroidism. The patient was apparently driving to [place] on the day of admission when she suddenly felt palpitations, pulled over, and dialed 911. EMS found her to be in sinus tachycardia in 130's, and hypoxic with a pulse ox in the high 80's. According to reports, the patient reported chest pain to EMS. Though she was initially oriented, the patient was felt to be somewhat disoriented even on arrival to the emergency room. Her home medications were verified with her outpatient pharmacy - evidently however the patient had not been taking any of her medications. She also reported a 6 pack of beer daily drinking history at that time, with her last drink occuring 3 days prior to admission. However, she now admits to 3-6 mixed drinks nightly, each consisting of approximately 3 shots of [employer]. Soon after arrival she was noted to be agitated, restless, and suspected to have begun withdrawing from alcohol. There was no witnessed seizure activity, but there was a noticeable change in mental status. Her CT of the head was negative. She was found to be retaining urine (1.4 L out upon insertion of a benítez catheter). She was also noted to have a multi-focal pneumonia by CT of the chest. Following her admission she was also noted to have a UTI. Since the time of her admission Mrs. Welch has undergone alcohol withdrawl which now appears resolved. She is on treatment for an MSSA bacteremia, along with an E.Coli and Enterococcus UTI. She has a murmur on exam, with an essentially normal TTE that also showed no obvious evidence of endocarditis. She continues to have dysphagia to solids, but is tolerating a modified diet, now tentatively scheduled for an EGD at [facility] [place] tomorrow. She has undergone a successfull void trial and her benítez is discontinued. She continues to have profound hypomagnesemia despite aggressive repletion, but her hypokalemia has resolved. She is also anemic, now stable and with a negative stool occult blood. Ms. Welch underwent and EGD today, with evidence of a hypoechoic mass in the thoracic esophagus, suspicious for malignancy. This was biopsied. Furthermore, evidence of abnormal appearing lymph nodes were seen in the gastric, paraesophageal, and paratracheal regions were noted. Recommendations made for a PET CT for staging. No overnight events reported. Remains afebrile. Exam Narrative Exam Narrative: General: Thin woman, appears older than stated age. Comfortable and in no acute distress. Neck: Supple CV: Regular, nontachycardic, S1S2, No rubs or gallops. 3/6 LLSB murmur on exam. Pulmonary: Clear to auscultation bilaterally, no crackles, wheezing, or rhonchi Abdomen: + Bowel Sounds, soft, nontender, nondistended Vascular: No lower extremity edema Psych: Normal mood and affect. Objective Objective Clinical Data: Abnormal lab results 10/05/18 10/05/18 Range/Units 06:32 06:32 RBC 2.58 L (4.00-5.20) m/cumm Hgb 8.4 L (12.0-15.5) g/dL Hct 25.2 L (36.0-46.0) % MCV 97.7 H (80-95) fL RDW 15.1 H (11.7-14.6) % Sodium 131 L (136-145) mmol/L BUN 5 L (7-18) mg/dL Glucose 110 H (70-100) mg/dL Magnesium 1.3 L (1.8-2.4) mg/dL Vital Signs Temperature 36.5 C 10/05/18 16:19 Temperature Source Tympanic 10/05/18 16:19 Pulse 71 10/05/18 16:19 Pulse Rhythm Regular 10/05/18 17:00 Pulse 100 H 10/05/18 07:19 Respiratory Rate 17 10/05/18 16:19 Respiratory Effort 10/05/18 17:00 Respiratory Depth Normal 10/05/18 17:00 Respiratory Pattern Normal 10/05/18 17:00 Blood Pressure 110/61 10/05/18 16:19 Blood Pressure Mean 69 10/05/18 07:19 Blood Pressure Position Supine 09/29/18 19:00 Pulse Oximetry 93 L 10/05/18 16:19 Oxygen Delivery Method Room Air 10/05/18 16:19 Oxygen Flow Rate 0 10/05/18 16:19 Pain Level 6 10/05/18 18:51 Comment 10/03/18 07:15 Intake & Output 10/04/18 10/05/18 10/05/18 23:59 11:59 23:59 Intake Total 750 / 750 250 / 250 Output Total 1300 / 1300 1450 / 1450 Balance -550 / -550 -1200 / -1200 Weight 49.8 kg Intake: IV 150 / 150 250 / 250 Oral 600 / 600 Output: Urine 1300 / 1300 1450 / 1450 Other: Urine Color Yellow Urine Appearance Clear Clear Clear Urine Odor None Comment mixed with stool. BSC emptied. Stool Occult Blood Negative Stool Size Small Stool Characteristics Soft Liquid Brown Voiding Methods Bedside Commode Bedside Commode Toilet Laboratory Results WBC 8.16 k/cumm (4.4-10.8) D 10/05/18 06:32 RBC 2.58 m/cumm (4.00-5.20) L 10/05/18 06:32 Hgb 8.4 g/dL (12.0-15.5) L 10/05/18 06:32 Hct 25.2 % (36.0-46.0) L 10/05/18 06:32 MCV 97.7 fL (80-95) H 10/05/18 06:32 MCH 32.6 pg (27.0-33.0) 10/05/18 06:32 MCHC 33.3 g/dL (32.0-36.0) 10/05/18 06:32 RDW 15.1 % (11.7-14.6) H 10/05/18 06:32 Plt Count 291 x1000/uL (130-400) 10/05/18 06:32 MPV 10.3 fL (8.0-11.0) 10/05/18 06:32 Immature Gran % 0.2 10/05/18 06:32 Neutrophils % 74.0 10/05/18 06:32 Lymphocytes % 17.5 10/05/18 06:32 Monocytes % 8.0 10/05/18 06:32 Eosinophils % 0.1 10/05/18 06:32 Basophils % 0.2 10/05/18 06:32 Absolute Neutrophils 6.04 k/cumm (1.2-6.7) 10/05/18 06:32 Absolute Lymphocytes 1.43 k/cumm (1.2-3.4) 10/05/18 06:32 Absolute Monocytes 0.65 k/cumm (0.11-0.7) 10/05/18 06:32 Absolute Eosinophils 0.01 k/cumm (0.0-0.7) 10/05/18 06:32 Absolute Basophils 0.02 k/cumm (0.0-0.2) 10/05/18 06:32 Differential Comment Rbc morph reviewed 09/28/18 06:23 RBC Morphology See below 09/28/18 06:23 Polychromasia Present 09/28/18 06:23 Macrocytosis 1+ 09/28/18 06:23 PT 10.6 sec (9.3-10.8) 09/28/18 06:23 INR 1.1 (1.0-3.5) 09/28/18 06:23 APTT 22.6 sec (21.0-31.4) 09/26/18 16:30 Sodium 131 mmol/L (136-145) L 10/05/18 06:32 Potassium 3.9 mmol/L (3.5-5.1) 10/05/18 06:32 Chloride 99 mmol/L (98-107) 10/05/18 06:32 Carbon Dioxide 23.2 mmol/L (21.0-32.0) 10/05/18 06:32 Anion Gap 8.8 mmol/L (3-11) 10/05/18 06:32 BUN 5 mg/dL (7-18) L 10/05/18 06:32 Creatinine 0.66 mg/dL (0.55-1.02) 10/05/18 06:32 Estimated GFR/1.73 m2 >= 60.00 (mL/min/1.73m2) 10/05/18 06:32 Glucose 110 mg/dL (70-100) H 10/05/18 06:32 Lactate 1.3 mmol/L (0.6-1.4) 09/27/18 07:23 Calcium 8.9 mg/dL (8.5-10.1) 10/05/18 06:32 Magnesium 1.3 mg/dL (1.8-2.4) L 10/05/18 06:32 Iron 128 ug/dL (50-175) 09/27/18 07:23 TIBC 153 ug/dL (250-450) L 09/27/18 07:23 Transferrin % Sat 84 % (15-50) H 09/27/18 07:23 Ferritin 599 ng/mL (8-388) H 09/27/18 07:23 Total Bilirubin 0.7 mg/dL (0.2-1.0) 09/27/18 07:23 Conjugated Bilirubin 0.43 mg/dL (0.00-0.20) H 09/27/18 07:23 AST 91 U/L (15-37) H 09/27/18 07:23 ALT 19 U/L (12-78) 09/27/18 07:23 Alkaline Phosphatase 84 U/L (46-116) 09/27/18 07:23 Troponin I 0.06 ng/mL (0.00-0.06) 09/27/18 07:23 Total Protein 6.5 g/dL (6.4-8.2) 09/27/18 07:23 Albumin 2.0 g/dL (3.4-5.0) L 09/29/18 09:03 Prealbumin 5 mg/dL (20-40) L 10/01/18 06:45 Triglycerides 114 mg/dL (30-150) 09/27/18 07:23 Total Cholesterol 116 mg/dL (50-200) 09/27/18 07:23 LDL Cholesterol Direct 71 mg/dL (<100) 09/27/18 07:23 HDL Cholesterol 25 mg/dL (40-60) L 09/27/18 07:23 Vitamin B12 1404 pg/mL (193-986) H 09/27/18 07:23 25-OH Vitamin D Total 47.5 ng/ml (30-100) 10/01/18 06:45 Folate > 20.0 ng/mL (8.6-20.0) H 09/27/18 07:23 TSH Cancelled 09/26/18 17:58 Urine Color Yellow (Yellow) 09/26/18 18:50 Urine Clarity Sl cloudy 09/26/18 18:50 Urine pH 7.0 (5-8) 09/26/18 18:50 Ur Specific [place] 1.015 (1.005-1.025) 09/26/18 18:50 Urine Protein Negative mg/dL (Negative) 09/26/18 18:50 Urine Ketones Negative mg/dL (Negative) 09/26/18 18:50 Urine Blood Moderate (Negative) H 09/26/18 18:50 Urine Nitrite Negative (Negative) 09/26/18 18:50 Urine Bilirubin Negative (Negative) 09/26/18 18:50 Urine Urobilinogen 0.2 EU/dL (Up TO 0.2) 09/26/18 18:50 Ur Leukocyte Esterase Negative (Negative) 09/26/18 18:50 Urine RBC 0-2 (0-2) 09/26/18 18:50 Urine WBC 3-5 HPF (0-5) 09/26/18 18:50 Ur Epithelial Cells Few HPF (Negative) 09/26/18 18:50 Urine Crystals Negative HPF (Negative) 09/26/18 18:50 Urine Bacteria Packed HPF (Negative) 09/26/18 18:50 Urine Casts Negative LPF (Negative) 09/26/18 18:50 Urine Mucus Negative (Negative) 09/26/18 18:50 Ur Culture Indicated? Yes 09/26/18 18:50 Urine Glucose Negative mg/dL (Negative) 09/26/18 18:50 Vancomycin Trough 17.2 ug/mL (10.0-20.0) 09/28/18 16:50 Urine Opiates Screen Negative (Negative) 09/26/18 18:50 Urine Methadone Screen Negative (Negative) 09/26/18 18:50 Ur Barbiturates Screen Negative (Negative) 09/26/18 18:50 Ur Tricyclics Screen Negative (Negative) 09/26/18 18:50 Ur Amphetamines Screen Negative (Negative) 09/26/18 18:50 U Benzodiazepines Scrn Negative (Negative) 09/26/18 18:50 Urine Cocaine Screen Negative (Negative) 09/26/18 18:50 Ur THC Screen Negative (Negative) 09/26/18 18:50 Ethyl Alcohol < 3.0 mg/dL (<3) 09/26/18 16:30
--- NOTE | 2018-10-05 19:04 | PGE_ITS ---
Date of Service Date of service: 10/05/18 Time of Service: 19:00 Assessment and Plan (1) Sepsis: Current visit: Yes Status: Acute Though tachycardia and altered mental status could have also been related to alcohol withdrawal, evidence of pneumonia, UTI, as well as lactic acidosis make sepsis likely diagnosis. Currently resolved. Currently with MSSA Bacteremia and a pansensitive E.Coli UTI. Also with growth of enterococcus faecalis on Urine Culture, but with 50-100,000 colonies / ml. TTE without evidence of endocarditis. Initially maintained on VAncomycin and Pip-Tazo, narrowed to Oxacillin and Ancef , now discontinued as patient has now received 7 days of antibiotic therapy with appropriate coverage for UTI. Continue Day #10 of antibiotic therapy for MSSA bacteremia. Plan had been for an eventual DEEDEE to ensure lack of endocarditis prior to determination of the length of antibiotic course. However , as Esophageal mass is mid thoracic DEEDEE is very likely contraindicated. Will discuss with ID regarding length of antibiotic course. Unfortunately repeat Blood Cultures were not obtained following identification of Staph on blood cultures - repeat set from 10/02 with no growth X72 hours. (2) UTI (urinary tract infection): Current visit: Yes Status: Acute Completed 7 day course of antibiotics. (3) Alcohol withdrawal delirium: Current visit: Yes Status: Acute Resolved. CIWA discontinued previously. (4) Abnormal EKG: Current visit: Yes Status: Acute In setting of electrolyte abnormalities, acute illness including sepsis. Significance unclear. Minimal and equivocal troponin elevation downtrended and normalized. Monitored on telemetry without significant events. Consider further work-up in the future once stable. (5) Dysphagia: Current visit: Yes Status: Chronic With evidence of potential esophageal mass in patient with history of ETOH and Tobacco. EGD today with evidence of a hypoechoic mass in the thoracic esophagus, suspicious for malignancy. This was biopsied. Furthermore, evidence of abnormal appearing lymph nodes were seen in the gastric, paraesophageal, and paratracheal regions were noted. (6) PAD (peripheral artery disease): Current visit: Yes Status: Chronic Patient already follows with vascular [place] [facility]. No signs of critical limb ischemia. Continue statin therapy. Also on BB. Restarted DB-I and low dose aspirin. (7) Breast cancer: Current visit: Yes Status: Chronic IDC, ER/NM +, s/p lumpectomy and XRT, noncompliant with tamoxifen therapy (8) Urinary retention: Current visit: Yes Status: Acute It is possible that this was precipitated by administration of ativan. S/ p benítez - now with successful voiding trial. Resolved. (9) Normocytic anemia: Current visit: Yes Status: Acute Potentially anemia of chronic disease based on normal iron, Low TIBC and elevated Ferritin. B12, FA, and TSH all checked and normal. Currently with mild but continued drop. Patient has a history of PAD on antiplatelet therapy, as well as a strong history of ETOH abuse - stool for occult blood is still pending and patient remains on IV PPI therapy. Monitor closely. (10) Malnutrition: Current visit: Yes Status: Acute Associated with chronic severe alcohol use disorder as well as dysphagia with decreased oral intake of solids due to potential esophageal mass. Continue to maximize nutrition. Also with mild but worsening hyponatremia - also hypochloremic. May be on basis of dehydration. Appropriate improvement with gentle hydration. (11) DVT prophylaxis: Current visit: Yes Status: Acute Held Lovenox SC this morning in preparation for EGD. Subjective Interval history since last seen: 53 year old female with a prior history of ETOH abuse admitted from [facility] Emergency Department on 09/26/2018 with concern for alcohol withdrawl and sepsis from Pneumonia. Ms. Welch has a prior medical history significant for breast cancer s/p lumpectomy and XRT, noncompliant with tamoxifen therapy. She has also had dysphagia with solids, scheduled for evaluation but non-compliant with visits At [facility]. She uses tobacco and has a history of ETOH abuse. Other history also includes PAD, hypertension, and hypothyroidism. The patient was apparently driving to [place] on the day of admission when she suddenly felt palpitations , pulled over, and dialed 911. EMS found her to be in sinus tachycardia in 130's , and hypoxic with a pulse ox in the high 80's. According to reports, the patient reported chest pain to EMS. Though she was initially oriented, the patient was felt to be somewhat disoriented even on arrival to the emergency room. Her home medications were verified with her outpatient pharmacy - evidently however the patient had not been taking any of her medications. She also reported a 6 pack of beer daily drinking history at that time, with her last drink occuring 3 days prior to admission. However, she now admits to 3-6 mixed drinks nightly, each consisting of approximately 3 shots of Godengo. Soon after arrival she was noted to be agitated, restless, and suspected to have begun withdrawing from alcohol. There was no witnessed seizure activity, but there was a noticeable change in mental status. Her CT of the head was negative. She was found to be retaining urine (1.4 L out upon insertion of a benítez catheter). She was also noted to have a multi-focal pneumonia by CT of the chest. Following her admission she was also noted to have a UTI. Since the time of her admission Mrs. Welch has undergone alcohol withdrawl which now appears resolved. She is on treatment for an MSSA bacteremia, along with an E.Coli and Enterococcus UTI. She has a murmur on exam, with an essentially normal TTE that also showed no obvious evidence of endocarditis. She continues to have dysphagia to solids, but is tolerating a modified diet, now tentatively scheduled for an EGD at [facility] [place]. She has undergone a successfull void trial and her benítez is discontinued. She continues to have profound hypomagnesemia despite aggressive repletion, but her hypokalemia has resolved. She is also anemic, now stable and with a negative stool occult blood. Ms. Welch underwent and EGD today, with evidence of a hypoechoic mass in the thoracic esophagus, suspicious for malignancy. This was biopsied. Furthermore, evidence of abnormal appearing lymph nodes were seen in the gastric, paraesophageal, and paratracheal regions were noted. Recommendations made for a PET CT for staging. No overnight events reported. Remains afebrile. Exam Narrative Exam Narrative: General: Thin woman, appears older than stated age. Comfortable and in no acute distress. Neck: Supple CV: Regular, nontachycardic, S1S2, No rubs or gallops. 3/6 LLSB murmur on exam. Pulmonary: Clear to auscultation bilaterally, no crackles, wheezing, or rhonchi Abdomen: + Bowel Sounds, soft, nontender, nondistended Vascular: No lower extremity edema Psych: Normal mood and affect. Objective Objective Clinical Data: Abnormal lab results 10/05/18 10/05/18 Range/Units 06:32 06:32 RBC 2.58 L (4.00-5.20) m/cumm Hgb 8.4 L (12.0-15.5) g/dL Hct 25.2 L (36.0-46.0) % MCV 97.7 H (80-95) fL RDW 15.1 H (11.7-14.6) % Sodium 131 L (136-145) mmol/L BUN 5 L (7-18) mg/dL Glucose 110 H (70-100) mg/dL Magnesium 1.3 L (1.8-2.4) mg/dL Vital Signs Temperature 36.5 C 10/05/18 16:19 Temperature Source Tympanic 10/05/18 16:19 Pulse 71 10/05/18 16:19 Pulse Rhythm Regular 10/05/18 17:00 Pulse 100 H 10/05/18 07:19 Respiratory Rate 17 10/05/18 16:19 Respiratory Effort 10/05/18 17:00 Respiratory Depth Normal 10/05/18 17:00 Respiratory Pattern Normal 10/05/18 17:00 Blood Pressure 110/61 10/05/18 16:19 Blood Pressure Mean 69 10/05/18 07:19 Blood Pressure Position Supine 09/29/18 19:00 Pulse Oximetry 93 L 10/05/18 16:19 Oxygen Delivery Method Room Air 10/05/18 16:19 Oxygen Flow Rate 0 10/05/18 16:19 Pain Level 6 10/05/18 18:51 Comment 10/03/18 07:15 Intake & Output 10/04/18 10/05/18 10/05/18 23:59 11:59 23:59 Intake Total 750 / 750 250 / 250 Output Total 1300 / 1300 1450 / 1450 Balance -550 / -550 -1200 / -1200 Weight 49.8 kg Intake: IV 150 / 150 250 / 250 Oral 600 / 600 Output: Urine 1300 / 1300 1450 / 1450 Other: Urine Color Yellow Urine Appearance Clear Clear Clear Urine Odor None Comment mixed with stool. BSC emptied. Stool Occult Blood Negative Stool Size Small Stool Characteristics Soft Liquid Brown Voiding Methods Bedside Commode Bedside Commode Toilet Laboratory Results WBC 8.16 k/cumm (4.4-10.8) D 10/05/18 06:32 RBC 2.58 m/cumm (4.00-5.20) L 10/05/18 06:32 Hgb 8.4 g/dL (12.0-15.5) L 10/05/18 06:32 Hct 25.2 % (36.0-46.0) L 10/05/18 06:32 MCV 97.7 fL (80-95) H 10/05/18 06:32 MCH 32.6 pg (27.0-33.0) 10/05/18 06:32 MCHC 33.3 g/dL (32.0-36.0) 10/05/18 06:32 RDW 15.1 % (11.7-14.6) H 10/05/18 06:32 Plt Count 291 x1000/uL (130-400) 10/05/18 06:32 MPV 10.3 fL (8.0-11.0) 10/05/18 06:32 Immature Gran % 0.2 10/05/18 06:32 Neutrophils % 74.0 10/05/18 06:32 Lymphocytes % 17.5 10/05/18 06:32 Monocytes % 8.0 10/05/18 06:32 Eosinophils % 0.1 10/05/18 06:32 Basophils % 0.2 10/05/18 06:32 Absolute Neutrophils 6.04 k/cumm (1.2-6.7) 10/05/18 06:32 Absolute Lymphocytes 1.43 k/cumm (1.2-3.4) 10/05/18 06:32 Absolute Monocytes 0.65 k/cumm (0.11-0.7) 10/05/18 06:32 Absolute Eosinophils 0.01 k/cumm (0.0-0.7) 10/05/18 06:32 Absolute Basophils 0.02 k/cumm (0.0-0.2) 10/05/18 06:32 Differential Comment Rbc morph reviewed 09/28/18 06:23 RBC Morphology See below 09/28/18 06:23 Polychromasia Present 09/28/18 06:23 Macrocytosis 1+ 09/28/18 06:23 PT 10.6 sec (9.3-10.8) 09/28/18 06:23 INR 1.1 (1.0-3.5) 09/28/18 06:23 APTT 22.6 sec (21.0-31.4) 09/26/18 16:30 Sodium 131 mmol/L (136-145) L 10/05/18 06:32 Potassium 3.9 mmol/L (3.5-5.1) 10/05/18 06:32 Chloride 99 mmol/L (98-107) 10/05/18 06:32 Carbon Dioxide 23.2 mmol/L (21.0-32.0) 10/05/18 06:32 Anion Gap 8.8 mmol/L (3-11) 10/05/18 06:32 BUN 5 mg/dL (7-18) L 10/05/18 06:32 Creatinine 0.66 mg/dL (0.55-1.02) 10/05/18 06:32 Estimated GFR/1.73 m2 >= 60.00 (mL/min/1.73m2) 10/05/18 06:32 Glucose 110 mg/dL (70-100) H 10/05/18 06:32 Lactate 1.3 mmol/L (0.6-1.4) 09/27/18 07:23 Calcium 8.9 mg/dL (8.5-10.1) 10/05/18 06:32 Magnesium 1.3 mg/dL (1.8-2.4) L 10/05/18 06:32 Iron 128 ug/dL (50-175) 09/27/18 07:23 TIBC 153 ug/dL (250-450) L 09/27/18 07:23 Transferrin % Sat 84 % (15-50) H 09/27/18 07:23 Ferritin 599 ng/mL (8-388) H 09/27/18 07:23 Total Bilirubin 0.7 mg/dL (0.2-1.0) 09/27/18 07:23 Conjugated Bilirubin 0.43 mg/dL (0.00-0.20) H 09/27/18 07:23 AST 91 U/L (15-37) H 09/27/18 07:23 ALT 19 U/L (12-78) 09/27/18 07:23 Alkaline Phosphatase 84 U/L (46-116) 09/27/18 07:23 Troponin I 0.06 ng/mL (0.00-0.06) 09/27/18 07:23 Total Protein 6.5 g/dL (6.4-8.2) 09/27/18 07:23 Albumin 2.0 g/dL (3.4-5.0) L 09/29/18 09:03 Prealbumin 5 mg/dL (20-40) L 10/01/18 06:45 Triglycerides 114 mg/dL (30-150) 09/27/18 07:23 Total Cholesterol 116 mg/dL (50-200) 09/27/18 07:23 LDL Cholesterol Direct 71 mg/dL (<100) 09/27/18 07:23 HDL Cholesterol 25 mg/dL (40-60) L 09/27/18 07:23 Vitamin B12 1404 pg/mL (193-986) H 09/27/18 07:23 25-OH Vitamin D Total 47.5 ng/ml (30-100) 10/01/18 06:45 Folate > 20.0 ng/mL (8.6-20.0) H 09/27/18 07:23 TSH Cancelled 09/26/18 17:58 Urine Color Yellow (Yellow) 09/26/18 18:50 Urine Clarity Sl cloudy 09/26/18 18:50 Urine pH 7.0 (5-8) 09/26/18 18:50 Ur Specific [place] 1.015 (1.005-1.025) 09/26/18 18:50 Urine Protein Negative mg/dL (Negative) 09/26/18 18:50 Urine Ketones Negative mg/dL (Negative) 09/26/18 18:50 Urine Blood Moderate (Negative) H 09/26/18 18:50 Urine Nitrite Negative (Negative) 09/26/18 18:50 Urine Bilirubin Negative (Negative) 09/26/18 18:50 Urine Urobilinogen 0.2 EU/dL (Up TO 0.2) 09/26/18 18:50 Ur Leukocyte Esterase Negative (Negative) 09/26/18 18:50 Urine RBC 0-2 (0-2) 09/26/18 18:50 Urine WBC 3-5 HPF (0-5) 09/26/18 18:50 Ur Epithelial Cells Few HPF (Negative) 09/26/18 18:50 Urine Crystals Negative HPF (Negative) 09/26/18 18:50 Urine Bacteria Packed HPF (Negative) 09/26/18 18:50 Urine Casts Negative LPF (Negative) 09/26/18 18:50 Urine Mucus Negative (Negative) 09/26/18 18:50 Ur Culture Indicated? Yes 09/26/18 18:50 Urine Glucose Negative mg/dL (Negative) 09/26/18 18:50 Vancomycin Trough 17.2 ug/mL (10.0-20.0) 09/28/18 16:50 Urine Opiates Screen Negative (Negative) 09/26/18 18:50 Urine Methadone Screen Negative (Negative) 09/26/18 18:50 Ur Barbiturates Screen Negative (Negative) 09/26/18 18:50 Ur Tricyclics Screen Negative (Negative) 09/26/18 18:50 Ur Amphetamines Screen Negative (Negative) 09/26/18 18:50 U Benzodiazepines Scrn Negative (Negative) 09/26/18 18:50 Urine Cocaine Screen Negative (Negative) 09/26/18 18:50 Ur THC Screen Negative (Negative) 09/26/18 18:50 Ethyl Alcohol < 3.0 mg/dL (<3) 09/26/18 16:30
[2018-10-05] MEDS: Pantoprazole 40 MG VIAL IVP (22:59)
[2018-10-05] MEDS: Rosuvastatin 5 MG TAB PO (22:59)
[2018-10-06] MEDS: Normal Saline 1,000 ML 100 ML IV ×2 (03:54→14:36)
[2018-10-06 07:16] LABS: Abs Immature Grans 0.04 k/cumm (0.0-0.09); Absolute Basophil Count 0.03 k/cumm (0.0-0.2); Absolute Eosinophil Count 0.17 k/cumm (0.0-0.7); Absolute Lymphocyte Count 1.12 k/cumm (1.2-3.4); Absolute Monocyte Count 0.44 k/cumm (0.11-0.7); Absolute Neutrophil Count 4.51 k/cumm (1.2-6.7); Basophils % 0.5; Eosinophils % 2.7; HCT 23.1 % (36.0-46.0); Immature Grans % 0.6; Lymphocytes % 17.7; Mean Corp. HGB Concentration 34.6 g/dL (32.0-36.0); Mean Corpuscular Hemoglobin 33.6 pg (27.0-33.0); Mean Corpuscular Volume 97.1 fL (80-95); Mean Platelet Volume 10.3 fL (8.0-11.0); Neutrophils % 71.5; Platelet Count 285 x1000/uL (130-400); RBC 2.38 m/cumm (4.00-5.20); RBC Distribution Width 15.4 % (11.7-14.6); White Blood Cell Count 6.31 k/cumm (4.4-10.8)
[2018-10-06 07:24] LABS: BUN 6 mg/dL (7-18); CREATININE 0.57 mg/dL (0.55-1.02); Calcium 8.8 mg/dL (8.5-10.1); Chloride 99 mmol/L (98-107); Glucose 110 mg/dL (70-100); Magnesium 2.2 mg/dL (1.8-2.4); Potassium 4.3 mmol/L (3.5-5.1); Sodium 132 mmol/L (136-145)
[2018-10-06 07:49] VITALS: BP 108/57; PULSE 89; RESP 17; TEMP 37.1; O2SAT 96
[2018-10-06] MEDS: Aspirin 81 MG CHEW PO (08:00)
[2018-10-06] MEDS: Potassium Chloride 20 MEQ TABCR PO (08:00)
[2018-10-06] MEDS: Levothyroxine 50 MCG TAB PO (08:00)
[2018-10-06] MEDS: Metoprolol 50 MG TAB PO ×2 (08:00→19:59)
[2018-10-06] MEDS: Folic Acid 1 MG TAB PO (08:01)
[2018-10-06] MEDS: Magnesium Oxide 400 MG TAB 800 MG PO ×3 (08:01→19:59)
[2018-10-06] MEDS: Multivitamin TAB 1 TAB PO (08:01)
[2018-10-06] MEDS: Lactobacillus Acidophilus CAP 1 CAP PO ×2 (08:01→19:58)
[2018-10-06] MEDS: Venlafaxine 150 MG CAPCR PO (08:01)
[2018-10-06] MEDS: Calcium Carbonate 1.5 GM TAB PO ×2 (08:01→19:59)
[2018-10-06] MEDS: Lisinopril 10 MG TAB PO (08:01)
[2018-10-06] MEDS: Thiamine 100 MG TAB PO (08:01)
[2018-10-06] MEDS: Nicotine 14 MG/24 HR PATCH TD (08:02)
--- NOTE | 2018-10-06 08:53 | W.SPEECHPG ---
Date of service: 10/06/18 Time of Service: 07:45 Speech Therpy Note Note: SUBJECTIVE Pt has been moved to the Med-Surg floor. She is sitting up in bed and greets me with good sustained direct eye contact and an appropriate intelligible verbal greeting. OBJECTIVE Nursing reports the following: - Temp: 37.1 - O2 sat: 96% on RA - LS: CTA-B in the presence of an antibiotic Pt had an E[place] done [place] [facility] [place] and she shares her hard copy report of same with me this morning. 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 It is easy to see by the accompanying pictures that the partial blockage is significant enough to impede esophageal transit of more solid food, multiple whole pills and perhaps even very thick liquids. This is likely the cause of the patient's h/o regurgitation of food and pills. Cece states that she did regurgitate some of her macaroni & cheese at yesterday's supper meal. Despite this, she confirms that she still declines the option of changing to a Liquidized or even a Puree diet consistency despite understanding the possible consequences (regurgitation, aspiration). Regarding swallowing, the following is noted: - Thin liquid: Good bolus control and posterior oral transit (POT). No jael s/s aspiration/penetration. Oral clearance 100% and no oral escape. No immediate or delayed regurgitation. - Dysphagia Advanced food: No food of this consistency is on the pt's breakfast tray this morning. - Puree food: Good bolus control and linguopalatal bolus compression. POT is WNL. No jael s/s aspiration/penetration. Oral clearance 100%; no oral escape. No immediate or delayed regurgitiation. - Crushed pills in puree: Results are the same as for Puree food. ASSESSMENT Pt continues to show no clinical s/s of a pharyngeal dysphagia but does, by patient report, continue to struggle with a significant esophageal dysphagia. This is not likely to improve until the esophageal mass and resulting stenosis has been treated, such that more solid food and pills can pass sufficiently to eliminate regurgitation. She continues to be at risk for regurgitation and, therefore, aspiration as long as she chooses to stay on the Dysphagia Advanced diet in the setting of the stenosis. Aspiration appears to have been avoided thus far, given her continued clear lung sounds. PLAN 1) D/c ST. 2) Follow through with [facility] [place] board's recommendations.
--- NOTE | 2018-10-06 09:28 | PNE_ITS ---
Date of service: 10/06/18 Time of Service: 07:45 Speech Therpy Note Note: SUBJECTIVE Pt has been moved to the Med-Surg floor. She is sitting up in bed and greets me with good sustained direct eye contact and an appropriate intelligible verbal greeting. OBJECTIVE Nursing reports the following: - Temp: 37.1 - O2 sat: 96% on RA - LS: CTA-B in the presence of an antibiotic Pt had an EGD done at [facility] yesterday and she shares her hard copy report of same with me this morning. 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 It is easy to see by the accompanying pictures that the partial blockage is significant enough to impede esophageal transit of more solid food, multiple whole pills and perhaps even very thick liquids. This is likely the cause of the patient's h/o regurgitation of food and pills. Cece states that she did regurgitate some of her macaroni & cheese at yesterday's supper meal. Despite this, she confirms that she still declines the option of changing to a Liquidized or even a Puree diet consistency despite understanding the possible consequences (regurgitation, aspiration). Regarding swallowing, the following is noted: - Thin liquid: Good bolus control and posterior oral transit (POT). No jael s /s aspiration/penetration. Oral clearance 100% and no oral escape. No immediate or delayed regurgitation. - Dysphagia Advanced food: No food of this consistency is on the pt's breakfast tray this morning. - Puree food: Good bolus control and linguopalatal bolus compression. POT is WNL. No jael s/s aspiration/penetration. Oral clearance 100%; no oral escape. No immediate or delayed regurgitiation. - Crushed pills in puree: Results are the same as for Puree food. ASSESSMENT Pt continues to show no clinical s/s of a pharyngeal dysphagia but does, by patient report, continue to struggle with a significant esophageal dysphagia. This is not likely to improve until the esophageal mass and resulting stenosis has been treated, such that more solid food and pills can pass sufficiently to eliminate regurgitation. She continues to be at risk for regurgitation and, therefore, aspiration as long as she chooses to stay on the Dysphagia Advanced diet in the setting of the stenosis. Aspiration appears to have been avoided thus far, given her continued clear lung sounds. PLAN 1) D/c ST. 2) Follow through with [facility] tumor board's recommendations.
[2018-10-06] MEDS: Acetaminophen 500 MG TAB 1000 MG PO ×2 (09:55→17:23)
[2018-10-06] MEDS: Normal Saline Flush 10 ML SYR IVP ×2 (09:55→21:46)
--- NOTE | 2018-10-06 11:34 | PDOC.CMPRO ---
- If Service Date Differs Date of service: 10/06/18 Time of Service: 11:34 Care Management Progress Note S/O: Cece was sitting in bed when CM visited this morning. Following her return from [facility] yesterday, she was transferred from the ICU to MS. Zhao's EGD at [facility] showed a malignant mass and abnormal nodules in her lymph nodes; according to Cece, she is in the early stages of throat cancer but they caught it early. She is engaged in conversation, makes good eye contact, and is talkative. CM and Cece discussed Cece's request for a walker. CM advised her to phone the [employer], where her family member works, and they are able to provide her with one. Cece was able to ambulate to the shower this morning but required a w/c on the way back due to weakness. Cece reports that she will be moving in with her boyfriend, RHODA, upon discharge. CM and Cece spoke about Cece's interest in disability; CM advised her to phone HR at her employer, [employer]. Anticipate patient will be needing several more days of IV antibiotics prior to discharge. A: Cece is a 53 year old female admitted to [facility] 09/26/18 with ETOH withdrawal, SIRS, Hypokalemia and Hypomagnesemia. She continues IV antibiotic treatment for an MSSA bacteremia, E.Coli and Enterococcus UTI. P: Cece will discharge home when medically ready per MD. Anticipate patient will discharge with no services and follow up with her PCP and oncology MD at [facility]. Cece will transport via private vehicle with her family at time of discharge. CM will continue to offer support to patient and care team regarding discharge planning and disposition.
--- NOTE | 2018-10-06 11:39 | CMPROGNOTE_ITS ---
- If Service Date Differs Date of service: 10/06/18 Time of Service: 11:34 Care Management Progress Note S/O: Cece was sitting in bed when CM visited this morning. Following her return from [facility] yesterday, she was transferred from the ICU to MS. Zhao's EGD at [facility] showed a malignant mass and abnormal nodules in her lymph nodes; according to Cece, she is in the early stages of throat cancer but they caught it early. She is engaged in conversation, makes good eye contact, and is talkative. CM and Cece discussed Cece's request for a walker. CM advised her to phone the [employer], where her family member works, and they are able to provide her with one. Cece was able to ambulate to the shower this morning but required a w/c on the way back due to weakness. Cece reports that she will be moving in with her boyfriend, RHODA, upon discharge. CM and Cece spoke about Cece 's interest in disability; CM advised her to phone HR at her employer, [employer]. Anticipate patient will be needing several more days of IV antibiotics prior to discharge. A: Cece is a 53 year old female admitted to [facility] 09/26/18 with ETOH withdrawal , SIRS, Hypokalemia and Hypomagnesemia. She continues IV antibiotic treatment for an MSSA bacteremia, E.Coli and Enterococcus UTI. P: Cece will discharge home when medically ready per MD. Anticipate patient will discharge with no services and follow up with her PCP and oncology MD at [facility]. Cece will transport via private vehicle with her family at time of discharge. CM will continue to offer support to patient and care team regarding discharge planning and disposition.
[2018-10-06 15:53] VITALS: BP 103/55; PULSE 90; RESP 18; TEMP 36.7; O2SAT 97
--- NOTE | 2018-10-06 16:13 | W.PM.PROGNOT ---
Date of Service Date of service: 10/06/18 Time of Service: 16:13 Assessment and Plan (1) Sepsis: Current visit: Yes Status: Acute Though tachycardia and altered mental status could have also been related to alcohol withdrawal, evidence of pneumonia, UTI, as well as lactic acidosis make sepsis likely diagnosis. Currently resolved. Currently with MSSA Bacteremia and a pansensitive E.Coli UTI. Also with growth of enterococcus faecalis on Urine Culture, but with 50-100,000 colonies / ml. TTE without evidence of endocarditis. Initially maintained on VAncomycin and Pip-Tazo, narrowed to Oxacillin and Ancef, now discontinued as patient had received 7 days of antibiotic therapy with appropriate coverage for UTI. Continue Day #11 of antibiotic therapy for MSSA bacteremia. Plan had been for an eventual DEEDEE to ensure lack of endocarditis prior to determination of the length of antibiotic course. However, as Esophageal mass is mid thoracic DEEDEE is very likely contraindicated. Discussed case with ID regarding length of antibiotic course, and given her relative immunosuppressed state in the setting of chronic alcoholic abuse, likely component of liver dysfunction, as well as prior and active malignancy recommendations were made for a total of 4 weeks of antibiotics. Repeat set from 10/02 with no growth X96 hours. (2) UTI (urinary tract infection): Current visit: Yes Status: Acute Completed 7 day course of antibiotics. (3) Alcohol withdrawal delirium: Current visit: Yes Status: Acute Resolved. CIWA discontinued previously. (4) Abnormal EKG: Current visit: Yes Status: Acute In setting of electrolyte abnormalities, acute illness including sepsis. Significance unclear. Minimal and equivocal troponin elevation downtrended and normalized. Monitored on telemetry without significant events. Consider further work-up in the future once stable. (5) Dysphagia: Current visit: Yes Status: Chronic With evidence of potential esophageal mass in patient with history of ETOH and Tobacco. EGD 10/05 with evidence of a hypoechoic mass in the thoracic esophagus, suspicious for malignancy. This was biopsied. Furthermore, evidence of abnormal appearing lymph nodes were seen in the gastric, paraesophageal, and paratracheal regions were noted. (6) PAD (peripheral artery disease): Current visit: Yes Status: Chronic Patient already follows with vascular at [facility] [place]. No signs of critical limb ischemia. Continue statin therapy. Also on BB. Restarted DB-I and low dose aspirin. (7) Breast cancer: Current visit: Yes Status: Chronic IDC, ER/TN +, s/p lumpectomy and XRT, noncompliant with tamoxifen therapy (8) Urinary retention: Current visit: Yes Status: Acute It is possible that this was precipitated by administration of ativan. S/p benítez - now with successful voiding trial. Resolved. (9) Normocytic anemia: Current visit: Yes Status: Acute Potentially anemia of chronic disease based on normal iron, Low TIBC and elevated Ferritin. B12, FA, and TSH all checked and normal. Currently with mild but continued drop. Patient has a history of PAD on antiplatelet therapy, as well as a strong history of ETOH abuse - stool for occult blood was reported as negative, and patient remains on IV PPI therapy. Monitor closely. (10) Malnutrition: Current visit: Yes Status: Acute Associated with chronic severe alcohol use disorder as well as dysphagia with decreased oral intake of solids due to potential esophageal mass. Continue to maximize nutrition. Also with mild but worsening hyponatremia previously - also hypochloremic. May be on basis of dehydration. Appropriate improvement with gentle hydration and improved po intake. (11) DVT prophylaxis: Current visit: Yes Status: Acute Restart Lovenox SC. Subjective Interval history since last seen: 53 year old female with a prior history of ETOH abuse admitted from [facility] Emergency Department on 09/26/2018 with concern for alcohol withdrawl and sepsis from Pneumonia. Ms. Welch has a prior medical history significant for breast cancer s/p lumpectomy and XRT, noncompliant with tamoxifen therapy. She has also had dysphagia with solids, scheduled for evaluation but non-compliant with visits At [facility] [place]. She uses tobacco and has a history of ETOH abuse. Other history also includes PAD, hypertension, and hypothyroidism. The patient was apparently driving to [place] on the day of admission when she suddenly felt palpitations, pulled over, and dialed 911. EMS found her to be in sinus tachycardia in 130's, and hypoxic with a pulse ox in the high 80's. According to reports, the patient reported chest pain to EMS. Though she was initially oriented, the patient was felt to be somewhat disoriented even on arrival to the emergency room. Her home medications were verified with her outpatient pharmacy - evidently however the patient had not been taking any of her medications. She also reported a 6 pack of beer daily drinking history at that time, with her last drink occuring 3 days prior to admission. However, she has since admitted to 3-6 mixed drinks nightly, each consisting of approximately 3 shots of TiGenix. Soon after arrival she was noted to be agitated, restless, and suspected to have begun withdrawing from alcohol. There was no witnessed seizure activity, but there was a noticeable change in mental status. Her CT of the head was negative. She was found to be retaining urine (1.4 L out upon insertion of a benítez catheter). She was also noted to have a multi-focal pneumonia by CT of the chest. Following her admission she was also noted to have a UTI. Since the time of her admission Mrs. Welch has undergone alcohol withdrawl which now appears resolved. She is on treatment for an MSSA bacteremia, along with an E.Coli and Enterococcus UTI. She has a murmur on exam, with an essentially normal TTE that also showed no obvious evidence of endocarditis. She continues to have dysphagia to solids, but is tolerating a modified diet, now having undergone an EGD at [facility] [place]. She has undergone a successfull void trial and her benítez is discontinued. She had profound hypomagnesemia despite aggressive repletion - now resolved with resolved hypokalemia as well. She is also anemic, now stable and with a negative stool occult blood. Ms. Welch underwent and EGD on 10/05, with evidence of a hypoechoic mass in the thoracic esophagus, suspicious for malignancy. This was biopsied. Furthermore, evidence of abnormal appearing lymph nodes were seen in the gastric, paraesophageal, and paratracheal regions were noted. Recommendations made for a PET CT for staging. ID with recommendation for 4 weeks total of antibiotic therapy. No overnight events reported. Remains afebrile. Exam Narrative Exam Narrative: General: Thin woman, appears older than stated age. Comfortable and in no acute distress. Neck: Supple CV: Regular, nontachycardic, S1S2, No rubs or gallops. 3/6 LLSB murmur on exam. Pulmonary: Clear to auscultation bilaterally, no crackles, wheezing, or rhonchi Abdomen: + Bowel Sounds, soft, nontender, nondistended Vascular: No lower extremity edema Psych: Normal mood and affect. Objective Objective Clinical Data: Abnormal lab results 10/06/18 10/06/18 Range/Units 06:58 06:58 RBC 2.38 L (4.00-5.20) m/cumm Hgb 8.0 L (12.0-15.5) g/dL Hct 23.1 L (36.0-46.0) % MCV 97.1 H (80-95) fL MCH 33.6 H (27.0-33.0) pg RDW 15.4 H (11.7-14.6) % Absolute Lymphocytes 1.12 L (1.2-3.4) k/cumm Sodium 132 L (136-145) mmol/L BUN 6 L (7-18) mg/dL Glucose 110 H (70-100) mg/dL Vital Signs Temperature 36.7 C 10/06/18 15:53 Temperature Source Tympanic 10/06/18 15:53 Pulse 90 10/06/18 15:53 Pulse Rhythm Regular 10/06/18 08:00 Pulse 100 H 10/05/18 07:19 Respiratory Rate 18 10/06/18 15:53 Respiratory Effort Non-Labored 10/06/18 08:00 Respiratory Depth Normal 10/06/18 08:00 Respiratory Pattern Normal 10/06/18 08:00 Blood Pressure 103/55 L 10/06/18 15:53 Blood Pressure Mean 69 10/05/18 07:19 Blood Pressure Position Supine 09/29/18 19:00 Pulse Oximetry 97 10/06/18 15:53 Oxygen Delivery Method Room Air 10/06/18 15:53 Oxygen Flow Rate 0 10/06/18 15:53 Pain Level 0 10/06/18 07:49 Comment 10/05/18 19:30 Intake & Output 10/05/18 10/06/18 10/06/18 23:59 11:59 23:59 Intake Total 100 / 100 450 / 450 1740 / 1740 Balance 100 / 100 450 / 450 1740 / 1740 Weight 48 kg Intake: IV 100 / 100 150 / 150 1000 / 1000 Oral 300 / 300 740 / 740 Other: Urine Appearance Clear Comment pt voiding ad juan carlos in toilet; urine not assessed at this time Voiding Methods Toilet Toilet Laboratory Results WBC 6.31 k/cumm (4.4-10.8) 10/06/18 06:58 RBC 2.38 m/cumm (4.00-5.20) L 10/06/18 06:58 Hgb 8.0 g/dL (12.0-15.5) L 10/06/18 06:58 Hct 23.1 % (36.0-46.0) L 10/06/18 06:58 MCV 97.1 fL (80-95) H 10/06/18 06:58 MCH 33.6 pg (27.0-33.0) H 10/06/18 06:58 MCHC 34.6 g/dL (32.0-36.0) 10/06/18 06:58 RDW 15.4 % (11.7-14.6) H 10/06/18 06:58 Plt Count 285 x1000/uL (130-400) 10/06/18 06:58 MPV 10.3 fL (8.0-11.0) 10/06/18 06:58 Immature Gran % 0.6 10/06/18 06:58 Neutrophils % 71.5 10/06/18 06:58 Lymphocytes % 17.7 10/06/18 06:58 Monocytes % 7.0 10/06/18 06:58 Eosinophils % 2.7 10/06/18 06:58 Basophils % 0.5 10/06/18 06:58 Absolute Neutrophils 4.51 k/cumm (1.2-6.7) 10/06/18 06:58 Absolute Lymphocytes 1.12 k/cumm (1.2-3.4) L 10/06/18 06:58 Absolute Monocytes 0.44 k/cumm (0.11-0.7) 10/06/18 06:58 Absolute Eosinophils 0.17 k/cumm (0.0-0.7) 10/06/18 06:58 Absolute Basophils 0.03 k/cumm (0.0-0.2) 10/06/18 06:58 Differential Comment Rbc morph reviewed 09/28/18 06:23 RBC Morphology See below 09/28/18 06:23 Polychromasia Present 09/28/18 06:23 Macrocytosis 1+ 09/28/18 06:23 PT 10.6 sec (9.3-10.8) 09/28/18 06:23 INR 1.1 (1.0-3.5) 09/28/18 06:23 APTT 22.6 sec (21.0-31.4) 09/26/18 16:30 Sodium 132 mmol/L (136-145) L 10/06/18 06:58 Potassium 4.3 mmol/L (3.5-5.1) 10/06/18 06:58 Chloride 99 mmol/L (98-107) 10/06/18 06:58 Carbon Dioxide 23.0 mmol/L (21.0-32.0) 10/06/18 06:58 Anion Gap 10.0 mmol/L (3-11) 10/06/18 06:58 BUN 6 mg/dL (7-18) L 10/06/18 06:58 Creatinine 0.57 mg/dL (0.55-1.02) 10/06/18 06:58 Estimated GFR/1.73 m2 >= 60.00 (mL/min/1.73m2) 10/06/18 06:58 Glucose 110 mg/dL (70-100) H 10/06/18 06:58 Lactate 1.3 mmol/L (0.6-1.4) 09/27/18 07:23 Calcium 8.8 mg/dL (8.5-10.1) 10/06/18 06:58 Magnesium 2.2 mg/dL (1.8-2.4) 10/06/18 06:58 Iron 128 ug/dL (50-175) 09/27/18 07:23 TIBC 153 ug/dL (250-450) L 09/27/18 07:23 Transferrin % Sat 84 % (15-50) H 09/27/18 07:23 Ferritin 599 ng/mL (8-388) H 09/27/18 07:23 Total Bilirubin 0.7 mg/dL (0.2-1.0) 09/27/18 07:23 Conjugated Bilirubin 0.43 mg/dL (0.00-0.20) H 09/27/18 07:23 AST 91 U/L (15-37) H 09/27/18 07:23 ALT 19 U/L (12-78) 09/27/18 07:23 Alkaline Phosphatase 84 U/L (46-116) 09/27/18 07:23 Troponin I 0.06 ng/mL (0.00-0.06) 09/27/18 07:23 Total Protein 6.5 g/dL (6.4-8.2) 09/27/18 07:23 Albumin 2.0 g/dL (3.4-5.0) L 09/29/18 09:03 Prealbumin 5 mg/dL (20-40) L 10/01/18 06:45 Triglycerides 114 mg/dL (30-150) 09/27/18 07:23 Total Cholesterol 116 mg/dL (50-200) 09/27/18 07:23 LDL Cholesterol Direct 71 mg/dL (<100) 09/27/18 07:23 HDL Cholesterol 25 mg/dL (40-60) L 09/27/18 07:23 Vitamin B12 1404 pg/mL (193-986) H 09/27/18 07:23 25-OH Vitamin D Total 47.5 ng/ml (30-100) 10/01/18 06:45 Folate > 20.0 ng/mL (8.6-20.0) H 09/27/18 07:23 TSH Cancelled 09/26/18 17:58 Urine Color Yellow (Yellow) 09/26/18 18:50 Urine Clarity Sl cloudy 09/26/18 18:50 Urine pH 7.0 (5-8) 09/26/18 18:50 Ur Specific [place] 1.015 (1.005-1.025) 09/26/18 18:50 Urine Protein Negative mg/dL (Negative) 09/26/18 18:50 Urine Ketones Negative mg/dL (Negative) 09/26/18 18:50 Urine Blood Moderate (Negative) H 09/26/18 18:50 Urine Nitrite Negative (Negative) 09/26/18 18:50 Urine Bilirubin Negative (Negative) 09/26/18 18:50 Urine Urobilinogen 0.2 EU/dL (Up TO 0.2) 09/26/18 18:50 Ur Leukocyte Esterase Negative (Negative) 09/26/18 18:50 Urine RBC 0-2 (0-2) 09/26/18 18:50 Urine WBC 3-5 HPF (0-5) 09/26/18 18:50 Ur Epithelial Cells Few HPF (Negative) 09/26/18 18:50 Urine Crystals Negative HPF (Negative) 09/26/18 18:50 Urine Bacteria Packed HPF (Negative) 09/26/18 18:50 Urine Casts Negative LPF (Negative) 09/26/18 18:50 Urine Mucus Negative (Negative) 09/26/18 18:50 Ur Culture Indicated? Yes 09/26/18 18:50 Urine Glucose Negative mg/dL (Negative) 09/26/18 18:50 Vancomycin Trough 17.2 ug/mL (10.0-20.0) 09/28/18 16:50 Urine Opiates Screen Negative (Negative) 09/26/18 18:50 Urine Methadone Screen Negative (Negative) 09/26/18 18:50 Ur Barbiturates Screen Negative (Negative) 09/26/18 18:50 Ur Tricyclics Screen Negative (Negative) 09/26/18 18:50 Ur Amphetamines Screen Negative (Negative) 09/26/18 18:50 U Benzodiazepines Scrn Negative (Negative) 09/26/18 18:50 Urine Cocaine Screen Negative (Negative) 09/26/18 18:50 Ur THC Screen Negative (Negative) 09/26/18 18:50 Ethyl Alcohol < 3.0 mg/dL (<3) 09/26/18 16:30
--- NOTE | 2018-10-06 16:19 | PGE_ITS ---
Date of Service Date of service: 10/06/18 Time of Service: 16:13 Assessment and Plan (1) Sepsis: Current visit: Yes Status: Acute Though tachycardia and altered mental status could have also been related to alcohol withdrawal, evidence of pneumonia, UTI, as well as lactic acidosis make sepsis likely diagnosis. Currently resolved. Currently with MSSA Bacteremia and a pansensitive E.Coli UTI. Also with growth of enterococcus faecalis on Urine Culture, but with 50-100,000 colonies / ml. TTE without evidence of endocarditis. Initially maintained on VAncomycin and Pip-Tazo, narrowed to Oxacillin and Ancef , now discontinued as patient had received 7 days of antibiotic therapy with appropriate coverage for UTI. Continue Day #11 of antibiotic therapy for MSSA bacteremia. Plan had been for an eventual DEEDEE to ensure lack of endocarditis prior to determination of the length of antibiotic course. However, as Esophageal mass is mid thoracic DEEDEE is very likely contraindicated. Discussed case with ID regarding length of antibiotic course, and given her relative immunosuppressed state in the setting of chronic alcoholic abuse, likely component of liver dysfunction, as well as prior and active malignancy recommendations were made for a total of 4 weeks of antibiotics. Repeat set from 10/02 with no growth X96 hours. (2) UTI (urinary tract infection): Current visit: Yes Status: Acute Completed 7 day course of antibiotics. (3) Alcohol withdrawal delirium: Current visit: Yes Status: Acute Resolved. CIWA discontinued previously. (4) Abnormal EKG: Current visit: Yes Status: Acute In setting of electrolyte abnormalities, acute illness including sepsis. Significance unclear. Minimal and equivocal troponin elevation downtrended and normalized. Monitored on telemetry without significant events. Consider further work-up in the future once stable. (5) Dysphagia: Current visit: Yes Status: Chronic With evidence of potential esophageal mass in patient with history of ETOH and Tobacco. EGD 10/05 with evidence of a hypoechoic mass in the thoracic esophagus, suspicious for malignancy. This was biopsied. Furthermore, evidence of abnormal appearing lymph nodes were seen in the gastric, paraesophageal, and paratracheal regions were noted. (6) PAD (peripheral artery disease): Current visit: Yes Status: Chronic Patient already follows with vascular at [facility]. No signs of critical limb ischemia. Continue statin therapy. Also on BB. Restarted DB-I and low dose aspirin. (7) Breast cancer: Current visit: Yes Status: Chronic IDC, ER/MO +, s/p lumpectomy and XRT, noncompliant with tamoxifen therapy (8) Urinary retention: Current visit: Yes Status: Acute It is possible that this was precipitated by administration of ativan. S/ p benítez - now with successful voiding trial. Resolved. (9) Normocytic anemia: Current visit: Yes Status: Acute Potentially anemia of chronic disease based on normal iron, Low TIBC and elevated Ferritin. B12, FA, and TSH all checked and normal. Currently with mild but continued drop. Patient has a history of PAD on antiplatelet therapy, as well as a strong history of ETOH abuse - stool for occult blood was reported as negative, and patient remains on IV PPI therapy. Monitor closely. (10) Malnutrition: Current visit: Yes Status: Acute Associated with chronic severe alcohol use disorder as well as dysphagia with decreased oral intake of solids due to potential esophageal mass. Continue to maximize nutrition. Also with mild but worsening hyponatremia previously - also hypochloremic. May be on basis of dehydration. Appropriate improvement with gentle hydration and improved po intake. (11) DVT prophylaxis: Current visit: Yes Status: Acute Restart Lovenox SC. Subjective Interval history since last seen: 53 year old female with a prior history of ETOH abuse admitted from [facility] Emergency Department on 09/26/2018 with concern for alcohol withdrawl and sepsis from Pneumonia. Ms. Welch has a prior medical history significant for breast cancer s/p lumpectomy and XRT, noncompliant with tamoxifen therapy. She has also had dysphagia with solids, scheduled for evaluation but non-compliant with visits At [facility]. She uses tobacco and has a history of ETOH abuse. Other history also includes PAD, hypertension, and hypothyroidism. The patient was apparently driving to [place] on the day of admission when she suddenly felt palpitations , pulled over, and dialed 911. EMS found her to be in sinus tachycardia in 130's , and hypoxic with a pulse ox in the high 80's. According to reports, the patient reported chest pain to EMS. Though she was initially oriented, the patient was felt to be somewhat disoriented even on arrival to the emergency room. Her home medications were verified with her outpatient pharmacy - evidently however the patient had not been taking any of her medications. She also reported a 6 pack of beer daily drinking history at that time, with her last drink occuring 3 days prior to admission. However, she has since admitted to 3-6 mixed drinks nightly, each consisting of approximately 3 shots of [employer]. Soon after arrival she was noted to be agitated, restless, and suspected to have begun withdrawing from alcohol. There was no witnessed seizure activity, but there was a noticeable change in mental status. Her CT of the head was negative. She was found to be retaining urine (1.4 L out upon insertion of a benítez catheter). She was also noted to have a multi-focal pneumonia by CT of the chest. Following her admission she was also noted to have a UTI. Since the time of her admission Mrs. Welch has undergone alcohol withdrawl which now appears resolved. She is on treatment for an MSSA bacteremia, along with an E.Coli and Enterococcus UTI. She has a murmur on exam, with an essentially normal TTE that also showed no obvious evidence of endocarditis. She continues to have dysphagia to solids, but is tolerating a modified diet, now having undergone an EGD at [facility]. She has undergone a successfull void trial and her benítez is discontinued. She had profound hypomagnesemia despite aggressive repletion - now resolved with resolved hypokalemia as well. She is also anemic, now stable and with a negative stool occult blood. Ms. Welch underwent and EGD on 10/05, with evidence of a hypoechoic mass in the thoracic esophagus, suspicious for malignancy. This was biopsied. Furthermore, evidence of abnormal appearing lymph nodes were seen in the gastric, paraesophageal, and paratracheal regions were noted. Recommendations made for a PET CT for staging. ID with recommendation for 4 weeks total of antibiotic therapy. No overnight events reported. Remains afebrile. Exam Narrative Exam Narrative: General: Thin woman, appears older than stated age. Comfortable and in no acute distress. Neck: Supple CV: Regular, nontachycardic, S1S2, No rubs or gallops. 3/6 LLSB murmur on exam. Pulmonary: Clear to auscultation bilaterally, no crackles, wheezing, or rhonchi Abdomen: + Bowel Sounds, soft, nontender, nondistended Vascular: No lower extremity edema Psych: Normal mood and affect. Objective Objective Clinical Data: Abnormal lab results 10/06/18 10/06/18 Range/Units 06:58 06:58 RBC 2.38 L (4.00-5.20) m/cumm Hgb 8.0 L (12.0-15.5) g/dL Hct 23.1 L (36.0-46.0) % MCV 97.1 H (80-95) fL MCH 33.6 H (27.0-33.0) pg RDW 15.4 H (11.7-14.6) % Absolute Lymphocytes 1.12 L (1.2-3.4) k/cumm Sodium 132 L (136-145) mmol/L BUN 6 L (7-18) mg/dL Glucose 110 H (70-100) mg/dL Vital Signs Temperature 36.7 C 10/06/18 15:53 Temperature Source Tympanic 10/06/18 15:53 Pulse 90 10/06/18 15:53 Pulse Rhythm Regular 10/06/18 08:00 Pulse 100 H 10/05/18 07:19 Respiratory Rate 18 10/06/18 15:53 Respiratory Effort Non-Labored 10/06/18 08:00 Respiratory Depth Normal 10/06/18 08:00 Respiratory Pattern Normal 10/06/18 08:00 Blood Pressure 103/55 L 10/06/18 15:53 Blood Pressure Mean 69 10/05/18 07:19 Blood Pressure Position Supine 09/29/18 19:00 Pulse Oximetry 97 10/06/18 15:53 Oxygen Delivery Method Room Air 10/06/18 15:53 Oxygen Flow Rate 0 10/06/18 15:53 Pain Level 0 10/06/18 07:49 Comment 10/05/18 19:30 Intake & Output 10/05/18 10/06/18 10/06/18 23:59 11:59 23:59 Intake Total 100 / 100 450 / 450 1740 / 1740 Balance 100 / 100 450 / 450 1740 / 1740 Weight 48 kg Intake: IV 100 / 100 150 / 150 1000 / 1000 Oral 300 / 300 740 / 740 Other: Urine Appearance Clear Comment pt voiding ad juan carlos in toilet; urine not assessed at this time Voiding Methods Toilet Toilet Laboratory Results WBC 6.31 k/cumm (4.4-10.8) 10/06/18 06:58 RBC 2.38 m/cumm (4.00-5.20) L 10/06/18 06:58 Hgb 8.0 g/dL (12.0-15.5) L 10/06/18 06:58 Hct 23.1 % (36.0-46.0) L 10/06/18 06:58 MCV 97.1 fL (80-95) H 10/06/18 06:58 MCH 33.6 pg (27.0-33.0) H 10/06/18 06:58 MCHC 34.6 g/dL (32.0-36.0) 10/06/18 06:58 RDW 15.4 % (11.7-14.6) H 10/06/18 06:58 Plt Count 285 x1000/uL (130-400) 10/06/18 06:58 MPV 10.3 fL (8.0-11.0) 10/06/18 06:58 Immature Gran % 0.6 10/06/18 06:58 Neutrophils % 71.5 10/06/18 06:58 Lymphocytes % 17.7 10/06/18 06:58 Monocytes % 7.0 10/06/18 06:58 Eosinophils % 2.7 10/06/18 06:58 Basophils % 0.5 10/06/18 06:58 Absolute Neutrophils 4.51 k/cumm (1.2-6.7) 10/06/18 06:58 Absolute Lymphocytes 1.12 k/cumm (1.2-3.4) L 10/06/18 06:58 Absolute Monocytes 0.44 k/cumm (0.11-0.7) 10/06/18 06:58 Absolute Eosinophils 0.17 k/cumm (0.0-0.7) 10/06/18 06:58 Absolute Basophils 0.03 k/cumm (0.0-0.2) 10/06/18 06:58 Differential Comment Rbc morph reviewed 09/28/18 06:23 RBC Morphology See below 09/28/18 06:23 Polychromasia Present 09/28/18 06:23 Macrocytosis 1+ 09/28/18 06:23 PT 10.6 sec (9.3-10.8) 09/28/18 06:23 INR 1.1 (1.0-3.5) 09/28/18 06:23 APTT 22.6 sec (21.0-31.4) 09/26/18 16:30 Sodium 132 mmol/L (136-145) L 10/06/18 06:58 Potassium 4.3 mmol/L (3.5-5.1) 10/06/18 06:58 Chloride 99 mmol/L (98-107) 10/06/18 06:58 Carbon Dioxide 23.0 mmol/L (21.0-32.0) 10/06/18 06:58 Anion Gap 10.0 mmol/L (3-11) 10/06/18 06:58 BUN 6 mg/dL (7-18) L 10/06/18 06:58 Creatinine 0.57 mg/dL (0.55-1.02) 10/06/18 06:58 Estimated GFR/1.73 m2 >= 60.00 (mL/min/1.73m2) 10/06/18 06:58 Glucose 110 mg/dL (70-100) H 10/06/18 06:58 Lactate 1.3 mmol/L (0.6-1.4) 09/27/18 07:23 Calcium 8.8 mg/dL (8.5-10.1) 10/06/18 06:58 Magnesium 2.2 mg/dL (1.8-2.4) 10/06/18 06:58 Iron 128 ug/dL (50-175) 09/27/18 07:23 TIBC 153 ug/dL (250-450) L 09/27/18 07:23 Transferrin % Sat 84 % (15-50) H 09/27/18 07:23 Ferritin 599 ng/mL (8-388) H 09/27/18 07:23 Total Bilirubin 0.7 mg/dL (0.2-1.0) 09/27/18 07:23 Conjugated Bilirubin 0.43 mg/dL (0.00-0.20) H 09/27/18 07:23 AST 91 U/L (15-37) H 09/27/18 07:23 ALT 19 U/L (12-78) 09/27/18 07:23 Alkaline Phosphatase 84 U/L (46-116) 09/27/18 07:23 Troponin I 0.06 ng/mL (0.00-0.06) 09/27/18 07:23 Total Protein 6.5 g/dL (6.4-8.2) 09/27/18 07:23 Albumin 2.0 g/dL (3.4-5.0) L 09/29/18 09:03 Prealbumin 5 mg/dL (20-40) L 10/01/18 06:45 Triglycerides 114 mg/dL (30-150) 09/27/18 07:23 Total Cholesterol 116 mg/dL (50-200) 09/27/18 07:23 LDL Cholesterol Direct 71 mg/dL (<100) 09/27/18 07:23 HDL Cholesterol 25 mg/dL (40-60) L 09/27/18 07:23 Vitamin B12 1404 pg/mL (193-986) H 09/27/18 07:23 25-OH Vitamin D Total 47.5 ng/ml (30-100) 10/01/18 06:45 Folate > 20.0 ng/mL (8.6-20.0) H 09/27/18 07:23 TSH Cancelled 09/26/18 17:58 Urine Color Yellow (Yellow) 09/26/18 18:50 Urine Clarity Sl cloudy 09/26/18 18:50 Urine pH 7.0 (5-8) 09/26/18 18:50 Ur Specific [place] 1.015 (1.005-1.025) 09/26/18 18:50 Urine Protein Negative mg/dL (Negative) 09/26/18 18:50 Urine Ketones Negative mg/dL (Negative) 09/26/18 18:50 Urine Blood Moderate (Negative) H 09/26/18 18:50 Urine Nitrite Negative (Negative) 09/26/18 18:50 Urine Bilirubin Negative (Negative) 09/26/18 18:50 Urine Urobilinogen 0.2 EU/dL (Up TO 0.2) 09/26/18 18:50 Ur Leukocyte Esterase Negative (Negative) 09/26/18 18:50 Urine RBC 0-2 (0-2) 09/26/18 18:50 Urine WBC 3-5 HPF (0-5) 09/26/18 18:50 Ur Epithelial Cells Few HPF (Negative) 09/26/18 18:50 Urine Crystals Negative HPF (Negative) 09/26/18 18:50 Urine Bacteria Packed HPF (Negative) 09/26/18 18:50 Urine Casts Negative LPF (Negative) 09/26/18 18:50 Urine Mucus Negative (Negative) 09/26/18 18:50 Ur Culture Indicated? Yes 09/26/18 18:50 Urine Glucose Negative mg/dL (Negative) 09/26/18 18:50 Vancomycin Trough 17.2 ug/mL (10.0-20.0) 09/28/18 16:50 Urine Opiates Screen Negative (Negative) 09/26/18 18:50 Urine Methadone Screen Negative (Negative) 09/26/18 18:50 Ur Barbiturates Screen Negative (Negative) 09/26/18 18:50 Ur Tricyclics Screen Negative (Negative) 09/26/18 18:50 Ur Amphetamines Screen Negative (Negative) 09/26/18 18:50 U Benzodiazepines Scrn Negative (Negative) 09/26/18 18:50 Urine Cocaine Screen Negative (Negative) 09/26/18 18:50 Ur THC Screen Negative (Negative) 09/26/18 18:50 Ethyl Alcohol < 3.0 mg/dL (<3) 09/26/18 16:30
[2018-10-06 19:18] VITALS: BP 135/74; PULSE 92; RESP 18; TEMP 36.7; O2SAT 98
[2018-10-06] MEDS: Rosuvastatin 5 MG TAB PO (21:41)
[2018-10-06] MEDS: Pantoprazole 40 MG VIAL IVP (21:41)
[2018-10-06] MEDS: Enoxaparin 40 MG/0.4 ML SYR SC (21:42)
--- NOTE | 2018-10-06 22:40 | NUR.NOTE ---
Nursing Note: Pt requested to have nicotrol inhaler PRN and with good effect. Continue on IVFluids infusing well. Independent in the room.Call lights at reach.
[2018-10-07] VITALS (11 sets, daily range): BP systolic 85–136; BP diastolic 52–87; PULSE 71–91; RESP 12–18; TEMP 36.1–37.2; O2SAT 94–100
[2018-10-07] MEDS: Normal Saline 1,000 ML 100 ML IV (01:50)
[2018-10-07] MEDS: Acetaminophen 500 MG TAB 1000 MG PO ×3 (04:51→18:18)
[2018-10-07 07:53] LABS: Abs Immature Grans 0.01 k/cumm (0.0-0.09); Absolute Basophil Count 0.04 k/cumm (0.0-0.2); Absolute Eosinophil Count 0.02 k/cumm (0.0-0.7); Absolute Lymphocyte Count 1.46 k/cumm (1.2-3.4); Absolute Neutrophil Count 5.59 k/cumm (1.2-6.7); Basophils % 0.5; Eosinophils % 0.3; Immature Grans % 0.1; Lymphocytes % 18.9; Mean Corp. HGB Concentration 33.5 g/dL (32.0-36.0); Mean Corpuscular Hemoglobin 33.3 pg (27.0-33.0); Mean Corpuscular Volume 99.5 fL (80-95); Mean Platelet Volume 9.9 fL (8.0-11.0); Monocytes % 7.8; Neutrophils % 72.4; Platelet Count 314 x1000/uL (130-400); RBC Distribution Width 15.5 % (11.7-14.6); White Blood Cell Count 7.72 k/cumm (4.4-10.8)
[2018-10-07 07:56] LABS: Anion Gap 9.2 mmol/L (3-11); BUN 6 mg/dL (7-18); CO2 21.8 mmol/L (21.0-32.0); CREATININE 0.59 mg/dL (0.55-1.02); Calcium 8.6 mg/dL (8.5-10.1); Chloride 100 mmol/L (98-107); Glucose 100 mg/dL (70-100); HCT 20.9 % (36.0-46.0); Magnesium 1.1 mg/dL (1.8-2.4); Sodium 131 mmol/L (136-145)
[2018-10-07] MEDS: Nicotine 14 MG/24 HR PATCH TD (08:51)
[2018-10-07] MEDS: Potassium Chloride 20 MEQ TABCR PO (08:52)
[2018-10-07] MEDS: Lisinopril 10 MG TAB PO (08:53)
[2018-10-07] MEDS: Venlafaxine 150 MG CAPCR PO (08:53)
[2018-10-07] MEDS: Multivitamin TAB 1 TAB PO (08:53)
[2018-10-07] MEDS: Calcium Carbonate 1.5 GM TAB PO ×2 (08:53→20:24)
[2018-10-07] MEDS: Thiamine 100 MG TAB PO (08:53)
[2018-10-07] MEDS: Levothyroxine 50 MCG TAB PO (08:53)
[2018-10-07] MEDS: Folic Acid 1 MG TAB PO (08:54)
[2018-10-07] MEDS: Aspirin 81 MG CHEW PO (08:54)
[2018-10-07] MEDS: Lactobacillus Acidophilus CAP 1 CAP PO ×2 (08:54→20:24)
[2018-10-07] MEDS: Metoprolol 50 MG TAB PO ×2 (08:54→20:24)
[2018-10-07] MEDS: Magnesium Lactate-SR 84 MG TABCR PO ×3 (09:30→20:24)
[2018-10-07] MEDS: MAGNESIUM SULFATE 4 GM/100 ML BAG IVPB ×2 (09:31→17:00)
--- NOTE | 2018-10-07 12:40 | PDOC.CMPRO ---
- If Service Date Differs Date of service: 10/07/18 Time of Service: 12:40 Care Management Progress Note S/O: Cece was sitting in bed when CM visited this morning. She is engaged in conversation, makes good eye contact, and is talkative but reports that she wants to leave. Cece has since been informed that she will be needing an additional two weeks of antibiotics which does not please her. Cece will be getting a second IV started this morning, as she is requiring magnesium, IV antibiotics, and a unit of blood for a hgb of 7. A: Cece is a 53 year old female admitted to [facility] 09/26/18 with ETOH withdrawal, SIRS, Hypokalemia and Hypomagnesemia. She continues IV antibiotic treatment for an MSSA bacteremia, E.Coli and Enterococcus UTI. P: Cece will discharge home when medically ready per MD. Anticipate patient will discharge with no services and follow up with her PCP and oncology MD at [facility]. Cece will transport via private vehicle with her family at time of discharge. CM will continue to offer support to patient and care team regarding discharge planning and disposition.
--- NOTE | 2018-10-07 12:54 | CMPROGNOTE_ITS ---
- If Service Date Differs Date of service: 10/07/18 Time of Service: 12:40 Care Management Progress Note S/O: Cece was sitting in bed when CM visited this morning. She is engaged in conversation, makes good eye contact, and is talkative but reports that she wants to leave. Cece has since been informed that she will be needing an additional two weeks of antibiotics which does not please her. Cece will be getting a second IV started this morning, as she is requiring magnesium, IV antibiotics, and a unit of blood for a hgb of 7. A: Cece is a 53 year old female admitted to [facility] 09/26/18 with ETOH withdrawal , SIRS, Hypokalemia and Hypomagnesemia. She continues IV antibiotic treatment for an MSSA bacteremia, E.Coli and Enterococcus UTI. P: Cece will discharge home when medically ready per MD. Anticipate patient will discharge with no services and follow up with her PCP and oncology MD at [facility]. Cece will transport via private vehicle with her family at time of discharge. CM will continue to offer support to patient and care team regarding discharge planning and disposition.
--- NOTE | 2018-10-07 15:01 | NUR.NOTE ---
Nursing Note: addressed boyfriends concern that patients home medications were gone, and located them in the pharmacy. patient contacted her home pharmacy and her boyfriend will bring tamoxifin tomorrow
[2018-10-07] MEDS: Normal Saline Flush 10 ML SYR IVP ×3 (15:31→22:08)
--- NOTE | 2018-10-07 19:11 | NUR.NOTE ---
Nursing Note: no adverse reactions noted with the blood transfusion this afternoon, afterwards patient ate dinner and was relaxing while watching tv
--- NOTE | 2018-10-07 19:12 | NUR.NOTE ---
Gave patient education related to the blood transfusion. It was explained to her that the hemoglobin transports oxygen throughout her body, and that improving the hemoglobin and hematocrit, that she may feel better and have more energy. She verbalizes understanding to the teaching Nursing Note:
--- NOTE | 2018-10-07 19:14 | PGE_ITS ---
Date of Service Date of service: 10/07/18 Time of Service: 19:16 Assessment and Plan (1) Sepsis: Current visit: Yes Status: Acute Resolved. Culture results with MSSA Bacteremia and a pansensitive E.Coli UTI. Also with growth of enterococcus faecalis on Urine Culture, but with 50-100 ,000 colonies / ml. TTE without evidence of endocarditis. Initially maintained on VAncomycin and Pip-Tazo, narrowed to Oxacillin and Ancef (discontinued as patient had received 7 days of antibiotic therapy with appropriate coverage for UTI). Currently on Day #12 of antibiotic therapy for MSSA bacteremia. Plan had been for an eventual DEEDEE to ensure lack of endocarditis prior to determination of the length of antibiotic course. However , as Esophageal mass is mid thoracic DEEDEE is very likely contraindicated. Discussed case with ID regarding length of antibiotic course, and given her relative immunosuppressed state in the setting of chronic alcoholic abuse, likely component of liver dysfunction, as well as prior and active malignancy recommendations were made for a total of 4 weeks of antibiotics. Repeat set from 10/02 with no growth X120 hours. Plan on obtaining PICC line, change to Cefazolin for ease of application for completion of antibiotic course. (2) UTI (urinary tract infection): Current visit: Yes Status: Acute Completed 7 day course of antibiotics. (3) Alcohol withdrawal delirium: Current visit: Yes Status: Acute Resolved. CIWA discontinued previously. (4) Abnormal EKG: Current visit: Yes Status: Acute In setting of electrolyte abnormalities, acute illness including sepsis. Significance unclear. Minimal and equivocal troponin elevation downtrended and normalized. Monitored on telemetry without significant events. Consider further work-up in the future once stable. (5) Dysphagia: Current visit: Yes Status: Chronic With evidence of potential esophageal mass in patient with history of ETOH and Tobacco. EGD 10/05 with evidence of a hypoechoic mass in the thoracic esophagus, suspicious for malignancy. This was biopsied. Furthermore, evidence of abnormal appearing lymph nodes were seen in the gastric, paraesophageal, and paratracheal regions were noted. (6) PAD (peripheral artery disease): Current visit: Yes Status: Chronic Patient already follows with vascular at [facility]. No signs of critical limb ischemia. Continue statin therapy. Also on BB. Restarted DB-I and low dose aspirin. (7) Breast cancer: Current visit: Yes Status: Chronic IDC, ER/DE +, s/p lumpectomy and XRT, noncompliant with tamoxifen therapy (8) Urinary retention: Current visit: Yes Status: Acute It is possible that this was precipitated by administration of ativan. S/ p benítez - now with successful voiding trial. Resolved. (9) Normocytic anemia: Current visit: Yes Status: Acute Potentially anemia of chronic disease based on normal iron, Low TIBC and elevated Ferritin. B12, FA, and TSH all checked and normal. Currently with drop post EGD with biopsy, with Hgb of 7. Will transfuse 1 unit and repeat H/H post transfusion. Patient has a history of PAD on antiplatelet therapy, as well as a strong history of ETOH abuse - stool for occult blood was reported as negative, and patient remains on IV PPI therapy. Monitor closely. (10) Malnutrition: Current visit: Yes Status: Acute Associated with chronic severe alcohol use disorder as well as dysphagia with decreased oral intake of solids due to potential esophageal mass. Continue to maximize nutrition. Also with mild but worsening hyponatremia previously - also hypochloremic. May be on basis of dehydration. Appropriate improvement with gentle hydration and improved po intake. (11) DVT prophylaxis: Current visit: Yes Status: Acute Lovenox SC. Consider holding if continued drop in Hgb. Subjective Interval history since last seen: 53 year old female with a prior history of ETOH abuse admitted from [facility] Emergency Department on 09/26/2018 with concern for alcohol withdrawl and sepsis from Pneumonia. Ms. Welch has a prior medical history significant for breast cancer s/p lumpectomy and XRT, noncompliant with tamoxifen therapy. She has also had dysphagia with solids, scheduled for evaluation but non-compliant with visits At [facility]. She uses tobacco and has a history of ETOH abuse. Other history also includes PAD, hypertension, and hypothyroidism. The patient was apparently driving to [place] on the day of admission when she suddenly felt palpitations , pulled over, and dialed 911. EMS found her to be in sinus tachycardia in 130's , and hypoxic with a pulse ox in the high 80's. According to reports, the patient reported chest pain to EMS. Though she was initially oriented, the patient was felt to be somewhat disoriented even on arrival to the emergency room. Her home medications were verified with her outpatient pharmacy - evidently however the patient had not been taking any of her medications. She also reported a 6 pack of beer daily drinking history at that time, with her last drink occuring 3 days prior to admission. However, she has since admitted to 3-6 mixed drinks nightly, each consisting of approximately 3 shots of [employer]. Soon after arrival she was noted to be agitated, restless, and suspected to have begun withdrawing from alcohol. There was no witnessed seizure activity, but there was a noticeable change in mental status. Her CT of the head was negative. She was found to be retaining urine (1.4 L out upon insertion of a benítez catheter). She was also noted to have a multi-focal pneumonia by CT of the chest. Following her admission she was also noted to have a UTI. Since the time of her admission Mrs. Welch has undergone alcohol withdrawl which now appears resolved. She is on treatment for an MSSA bacteremia, along with an E.Coli and Enterococcus UTI. She has a murmur on exam, with an essentially normal TTE that also showed no obvious evidence of endocarditis. She continues to have dysphagia to solids, but is tolerating a modified diet, now having undergone an EGD at [facility]. She has undergone a successfull void trial and her benítez is discontinued. She had profound hypomagnesemia despite aggressive repletion - now resolved with resolved hypokalemia as well. She is also anemic, previously stable and with a negative stool occult blood, now with noted drop following EGD. Ms. Welch underwent and EGD on 10/05, with evidence of a hypoechoic mass in the thoracic esophagus, suspicious for malignancy. This was biopsied. Furthermore, evidence of abnormal appearing lymph nodes were seen in the gastric, paraesophageal, and paratracheal regions were noted. Recommendations made for a PET CT for staging. ID with recommendation for 4 weeks total of antibiotic therapy. No overnight events reported. Remains afebrile. Exam Narrative Exam Narrative: General: Thin woman, appears older than stated age. Comfortable and in no acute distress. Neck: Supple CV: Regular, nontachycardic, S1S2, No rubs or gallops. 3/6 LLSB murmur on exam. Pulmonary: Clear to auscultation bilaterally, no crackles, wheezing, or rhonchi Abdomen: + Bowel Sounds, soft, nontender, nondistended Vascular: No lower extremity edema Psych: Normal mood and affect. Objective Objective Clinical Data: Abnormal lab results 10/07/18 10/07/18 10/07/18 Range/Units 07:33 07:33 10:10 RBC 2.10 L (4.00-5.20) m/cumm Hgb 7.0 L (12.0-15.5) g/dL Hct 20.9 L* (36.0-46.0) % MCV 99.5 H (80-95) fL MCH 33.3 H (27.0-33.0) pg RDW 15.5 H (11.7-14.6) % Sodium 131 L (136-145) mmol/L BUN 6 L (7-18) mg/dL Magnesium 1.1 L (1.8-2.4) mg/dL Crossmatch See Detail Vital Signs Temperature 36.5 C 10/07/18 16:43 Temperature Source Tympanic 10/07/18 16:43 Pulse 83 10/07/18 16:43 Pulse Rhythm Regular 10/07/18 10:41 Pulse 100 H 10/05/18 07:19 Respiratory Rate 18 10/07/18 16:43 Respiratory Effort 10/07/18 10:41 Respiratory Depth Normal 10/07/18 10:41 Respiratory Pattern Normal 10/07/18 10:41 Blood Pressure 95/62 L 10/07/18 16:43 Blood Pressure Mean 69 10/05/18 07:19 Blood Pressure Position Supine 09/29/18 19:00 Pulse Oximetry 98 10/07/18 16:43 Oxygen Delivery Method Room Air 10/07/18 16:43 Oxygen Flow Rate 0 10/07/18 16:43 Pain Level 7 10/07/18 18:18 Comment 10/05/18 19:30 Intake & Output 10/06/18 10/07/18 10/07/18 23:59 11:59 23:59 Intake Total 2130 / 2130 1606.667 / 1606.667 91 / Output Total 200 / 200 Balance 1930 / 1930 1606.667 / 1606.667 91 / 7 Weight 50.7 kg Intake: IV 1150 / 1150 1606.667 / 1606.667 100 / 100 Oral 980 / 980 550 / 550 Blood Product 257 / 257 Rbc Leuko Reduced Unit 257 / 257 [id number] Other Rbc Leuko Reduced Unit [id number] Output: Urine 200 / 200 Other: Urine Color Pale Urine Appearance Cloudy Clear Comment pt voiding ad juan carlos in toilet; urine not assessed at this time Voiding Methods Toilet Laboratory Results WBC 7.72 k/cumm (4.4-10.8) 10/07/18 07:33 RBC 2.10 m/cumm (4.00-5.20) L 10/07/18 07:33 Hgb 7.0 g/dL (12.0-15.5) L 10/07/18 07:33 Hct 20.9 % (36.0-46.0) L* 10/07/18 07:33 MCV 99.5 fL (80-95) H 10/07/18 07:33 MCH 33.3 pg (27.0-33.0) H 10/07/18 07:33 MCHC 33.5 g/dL (32.0-36.0) 10/07/18 07:33 RDW 15.5 % (11.7-14.6) H 10/07/18 07:33 Plt Count 314 x1000/uL (130-400) 10/07/18 07:33 MPV 9.9 fL (8.0-11.0) 10/07/18 07:33 Immature Gran % 0.1 10/07/18 07:33 Neutrophils % 72.4 10/07/18 07:33 Lymphocytes % 18.9 10/07/18 07:33 Monocytes % 7.8 10/07/18 07:33 Eosinophils % 0.3 10/07/18 07:33 Basophils % 0.5 10/07/18 07:33 Absolute Neutrophils 5.59 k/cumm (1.2-6.7) 10/07/18 07:33 Absolute Lymphocytes 1.46 k/cumm (1.2-3.4) 10/07/18 07:33 Absolute Monocytes 0.60 k/cumm (0.11-0.7) 10/07/18 07:33 Absolute Eosinophils 0.02 k/cumm (0.0-0.7) 10/07/18 07:33 Absolute Basophils 0.04 k/cumm (0.0-0.2) 10/07/18 07:33 Differential Comment Rbc morph reviewed 09/28/18 06:23 RBC Morphology See below 09/28/18 06:23 Polychromasia Present 09/28/18 06:23 Macrocytosis 1+ 09/28/18 06:23 PT 10.6 sec (9.3-10.8) 09/28/18 06:23 INR 1.1 (1.0-3.5) 09/28/18 06:23 APTT 22.6 sec (21.0-31.4) 09/26/18 16:30 Sodium 131 mmol/L (136-145) L 10/07/18 07:33 Potassium 4.0 mmol/L (3.5-5.1) 10/07/18 07:33 Chloride 100 mmol/L (98-107) 10/07/18 07:33 Carbon Dioxide 21.8 mmol/L (21.0-32.0) 10/07/18 07:33 Anion Gap 9.2 mmol/L (3-11) 10/07/18 07:33 BUN 6 mg/dL (7-18) L 10/07/18 07:33 Creatinine 0.59 mg/dL (0.55-1.02) 10/07/18 07:33 Estimated GFR/1.73 m2 >= 60.00 (mL/min/1.73m2) 10/07/18 07:33 Glucose 100 mg/dL (70-100) 10/07/18 07:33 Lactate 1.3 mmol/L (0.6-1.4) 09/27/18 07:23 Calcium 8.6 mg/dL (8.5-10.1) 10/07/18 07:33 Magnesium 1.1 mg/dL (1.8-2.4) L 10/07/18 07:33 Iron 128 ug/dL (50-175) 09/27/18 07:23 TIBC 153 ug/dL (250-450) L 09/27/18 07:23 Transferrin % Sat 84 % (15-50) H 09/27/18 07:23 Ferritin 599 ng/mL (8-388) H 09/27/18 07:23 Total Bilirubin 0.7 mg/dL (0.2-1.0) 09/27/18 07:23 Conjugated Bilirubin 0.43 mg/dL (0.00-0.20) H 09/27/18 07:23 AST 91 U/L (15-37) H 09/27/18 07:23 ALT 19 U/L (12-78) 09/27/18 07:23 Alkaline Phosphatase 84 U/L (46-116) 09/27/18 07:23 Troponin I 0.06 ng/mL (0.00-0.06) 09/27/18 07:23 Total Protein 6.5 g/dL (6.4-8.2) 09/27/18 07:23 Albumin 2.0 g/dL (3.4-5.0) L 09/29/18 09:03 Prealbumin 5 mg/dL (20-40) L 10/01/18 06:45 Triglycerides 114 mg/dL (30-150) 09/27/18 07:23 Total Cholesterol 116 mg/dL (50-200) 09/27/18 07:23 LDL Cholesterol Direct 71 mg/dL (<100) 09/27/18 07:23 HDL Cholesterol 25 mg/dL (40-60) L 09/27/18 07:23 Vitamin B12 1404 pg/mL (193-986) H 09/27/18 07:23 25-OH Vitamin D Total 47.5 ng/ml (30-100) 10/01/18 06:45 Folate > 20.0 ng/mL (8.6-20.0) H 09/27/18 07:23 TSH Cancelled 09/26/18 17:58 Urine Color Yellow (Yellow) 09/26/18 18:50 Urine Clarity Sl cloudy 09/26/18 18:50 Urine pH 7.0 (5-8) 09/26/18 18:50 Ur Specific [place] 1.015 (1.005-1.025) 09/26/18 18:50 Urine Protein Negative mg/dL (Negative) 09/26/18 18:50 Urine Ketones Negative mg/dL (Negative) 09/26/18 18:50 Urine Blood Moderate (Negative) H 09/26/18 18:50 Urine Nitrite Negative (Negative) 09/26/18 18:50 Urine Bilirubin Negative (Negative) 09/26/18 18:50 Urine Urobilinogen 0.2 EU/dL (Up TO 0.2) 09/26/18 18:50 Ur Leukocyte Esterase Negative (Negative) 09/26/18 18:50 Urine RBC 0-2 (0-2) 09/26/18 18:50 Urine WBC 3-5 HPF (0-5) 09/26/18 18:50 Ur Epithelial Cells Few HPF (Negative) 09/26/18 18:50 Urine Crystals Negative HPF (Negative) 09/26/18 18:50 Urine Bacteria Packed HPF (Negative) 09/26/18 18:50 Urine Casts Negative LPF (Negative) 09/26/18 18:50 Urine Mucus Negative (Negative) 09/26/18 18:50 Ur Culture Indicated? Yes 09/26/18 18:50 Urine Glucose Negative mg/dL (Negative) 09/26/18 18:50 Vancomycin Trough 17.2 ug/mL (10.0-20.0) 09/28/18 16:50 Urine Opiates Screen Negative (Negative) 09/26/18 18:50 Urine Methadone Screen Negative (Negative) 09/26/18 18:50 Ur Barbiturates Screen Negative (Negative) 09/26/18 18:50 Ur Tricyclics Screen Negative (Negative) 09/26/18 18:50 Ur Amphetamines Screen Negative (Negative) 09/26/18 18:50 U Benzodiazepines Scrn Negative (Negative) 09/26/18 18:50 Urine Cocaine Screen Negative (Negative) 09/26/18 18:50 Ur THC Screen Negative (Negative) 09/26/18 18:50 Ethyl Alcohol < 3.0 mg/dL (<3) 09/26/18 16:30 Patient ABO/Rh O Positive 10/07/18 10:10 Antibody Screen Negative 10/07/18 10:10 Crossmatch See Detail 10/07/18 10:10
[2018-10-07 20:14] LABS: HCT 23.8 % (36.0-46.0)
[2018-10-07] MEDS: Enoxaparin 40 MG/0.4 ML SYR SC (22:05)
[2018-10-07] MEDS: Rosuvastatin 5 MG TAB PO (22:07)
[2018-10-07] MEDS: Pantoprazole 40 MG VIAL IVP (22:09)
[2018-10-08 00:52] VITALS: BP 114/70; PULSE 81; RESP 16; TEMP 36.7; O2SAT 98
[2018-10-08] MEDS: Normal Saline Flush 10 ML SYR IVP ×4 (01:18→21:14)
--- NOTE | 2018-10-08 02:56 | NUR.NOTE ---
Nursing Note: 7P to 7A shift: Pt verbalized of being bored. Requested to go down to bending machine but she found out no chocolate that she likes. Had midline inserted on right upper arm, flushed and patent. Medicated and nicotrol IH given per request. Monitored closely.
[2018-10-08 06:41] LABS: Abs Immature Grans 0.02 k/cumm (0.0-0.09); Absolute Basophil Count 0.04 k/cumm (0.0-0.2); Absolute Eosinophil Count 0.03 k/cumm (0.0-0.7); Absolute Monocyte Count 0.78 k/cumm (0.11-0.7); Absolute Neutrophil Count 6.18 k/cumm (1.2-6.7); Basophils % 0.5; Eosinophils % 0.3; HCT 25.8 % (36.0-46.0); HGB 8.7 g/dL (12.0-15.5); Immature Grans % 0.2; Lymphocytes % 18.5; Mean Corp. HGB Concentration 33.7 g/dL (32.0-36.0); Mean Corpuscular Volume 94.9 fL (80-95); Mean Platelet Volume 9.9 fL (8.0-11.0); Neutrophils % 71.5; Platelet Count 359 x1000/uL (130-400); RBC 2.72 m/cumm (4.00-5.20); RBC Distribution Width 18.3 % (11.7-14.6); White Blood Cell Count 8.65 k/cumm (4.4-10.8)
[2018-10-08] MEDS: Levothyroxine 50 MCG TAB PO (07:14)
[2018-10-08 07:40] VITALS: BP 136/76; PULSE 88; RESP 17; TEMP 36.7; O2SAT 100
[2018-10-08 07:59] LABS: Anion Gap 7.5 mmol/L (3-11); BUN 7 mg/dL (7-18); CO2 24.5 mmol/L (21.0-32.0); CREATININE 0.64 mg/dL (0.55-1.02); Chloride 100 mmol/L (98-107); Glucose 100 mg/dL (70-100); Magnesium 2.2 mg/dL (1.8-2.4); Potassium 4.2 mmol/L (3.5-5.1); Sodium 132 mmol/L (136-145)
[2018-10-08] MEDS: Potassium Chloride 20 MEQ TABCR PO (09:11)
[2018-10-08] MEDS: Multivitamin TAB 1 TAB PO (09:11)
[2018-10-08] MEDS: Metoprolol 50 MG TAB PO ×2 (09:12→20:34)
[2018-10-08] MEDS: Lisinopril 10 MG TAB PO (09:12)
[2018-10-08] MEDS: Magnesium Lactate-SR 84 MG TABCR PO ×3 (09:13→20:34)
[2018-10-08] MEDS: Folic Acid 1 MG TAB PO (09:13)
[2018-10-08] MEDS: Venlafaxine 150 MG CAPCR PO (09:13)
[2018-10-08] MEDS: Lactobacillus Acidophilus CAP 1 CAP PO ×2 (09:13→20:33)
[2018-10-08] MEDS: Thiamine 100 MG TAB PO (09:13)
[2018-10-08] MEDS: Aspirin 81 MG CHEW PO (09:13)
[2018-10-08] MEDS: Calcium Carbonate 1.5 GM TAB PO ×2 (09:13→20:33)
[2018-10-08] MEDS: Acetaminophen 500 MG TAB 1000 MG PO ×2 (09:13→16:27)
[2018-10-08] MEDS: Nicotine 14 MG/24 HR PATCH TD (09:14)
[2018-10-08] MEDS: Normal Saline 500 ML 30 ML IV (10:52)
--- NOTE | 2018-10-08 10:59 | PDOC.CMPRO ---
- If Service Date Differs Date of service: 10/08/18 Time of Service: 10:59 Care Management Progress Note S/O: Cece was sitting in bed when CM visited this morning. She is engaged in conversation, makes good eye contact, and is talkative. She is concerned this morning about disability and has spoken with her employer ([employer]) who recommedned she phone Jonah Ernie [facility]z in [facility]. Cece will do so this morning and plans on following up with CM later in the day. CM will continue to offer support as needed and requested. Cece had a PICC line placed yesterday and continues to receive IV antibiotics, softened foods for her dysphagia, and crushed PO meds. Cece will require an additional two weeks of IV antibiotics prior to discharge. She reports that she spoke with her boyfriend, RHODA, who will be bringing in her home [place] medication; tamoxifen, today. She has reportedly been non-compliant with this medication and has not had it the entire time she has been at [facility]. Cece's hemoglobin has risen to 8.7 following a one unit transfusion of blood yesterday. A: Cece is a 53 year old female admitted to [facility] 09/26/18 with ETOH withdrawal, SIRS, Hypokalemia and Hypomagnesemia. She continues IV antibiotic treatment for an MSSA bacteremia, E.Coli and Enterococcus UTI. P: Cece will discharge home when medically ready per MD. Anticipate patient will discharge with no services and follow up with her PCP and oncology [place] at [facility]. Cece will transport via private vehicle with her family at time of discharge. CM will continue to offer support to patient and care team regarding discharge planning and disposition.
--- NOTE | 2018-10-08 11:12 | CMPROGNOTE_ITS ---
- If Service Date Differs Date of service: 10/08/18 Time of Service: 10:59 Care Management Progress Note S/O: Cece was sitting in bed when CM visited this morning. She is engaged in conversation, makes good eye contact, and is talkative. She is concerned this morning about disability and has spoken with her employer ([employer]) who recommedned she phone Jonah Ernie Yanez in [facility]. Cece will do so this morning and plans on following up with CM later in the day. CM will continue to offer support as needed and requested. Cece had a PICC line placed yesterday and continues to receive IV antibiotics, softened foods for her dysphagia, and crushed PO meds. Cece will require an additional two weeks of IV antibiotics prior to discharge. She reports that she spoke with her boyfriend, RHODA, who will be bringing in her home [place] medication; tamoxifen, today. She has reportedly been non-compliant with this medication and has not had it the entire time she has been at [facility]. Cece's hemoglobin has risen to 8.7 following a one unit transfusion of blood yesterday. A: Cece is a 53 year old female admitted to [facility] 09/26/18 with ETOH withdrawal , SIRS, Hypokalemia and Hypomagnesemia. She continues IV antibiotic treatment for an MSSA bacteremia, E.Coli and Enterococcus UTI. P: Cece will discharge home when medically ready per MD. Anticipate patient will discharge with no services and follow up with her PCP and oncology MD at [facility]. Cece will transport via private vehicle with her family at time of discharge. CM will continue to offer support to patient and care team regarding discharge planning and disposition.
--- NOTE | 2018-10-08 15:37 | W.PM.PROGNOT ---
Date of Service Date of service: 10/08/18 Time of Service: 15:37 Assessment and Plan (1) Sepsis: Current visit: Yes Status: Acute Resolved. Culture results with MSSA Bacteremia and a pansensitive E.Coli UTI. Also with growth of enterococcus faecalis on Urine Culture, but with 50-100,000 colonies / ml. TTE without evidence of endocarditis. Initially maintained on VAncomycin and Pip-Tazo, narrowed to Oxacillin and Ancef (discontinued as patient had received 7 days of antibiotic therapy with appropriate coverage for UTI). Currently on Day #13 of antibiotic therapy for MSSA bacteremia. Plan had been for an eventual DEEDEE to ensure lack of endocarditis prior to determination of the length of antibiotic course. However, as Esophageal mass is mid thoracic, DEEDEE is very likely contraindicated. Discussed case with ID regarding length of antibiotic course, and given her relative immunosuppressed state in the setting of chronic alcoholic abuse, likely component of liver dysfunction, as well as prior and active malignancy recommendations were made for a total of 4 weeks of antibiotics. Repeat set from 10/02 with no growth X120 hours. Midline in place, change to Cefazolin for ease of application for completion of antibiotic course. Consider changing status to Swing Bed for an additional 2 week course of antibiotic therapy. (2) UTI (urinary tract infection): Current visit: Yes Status: Acute Completed 7 day course of antibiotics. (3) Alcohol withdrawal delirium: Current visit: Yes Status: Acute Resolved. CIWA discontinued previously. (4) Abnormal EKG: Current visit: Yes Status: Acute In setting of electrolyte abnormalities, acute illness including sepsis. Significance unclear. Minimal and equivocal troponin elevation downtrended and normalized. Monitored on telemetry without significant events. Consider further work-up in the future once stable. (5) Dysphagia: Current visit: Yes Status: Chronic With evidence of potential esophageal mass in patient with history of ETOH and Tobacco. EGD 10/05 with evidence of a hypoechoic mass in the thoracic esophagus, suspicious for malignancy. This was biopsied. Furthermore, evidence of abnormal appearing lymph nodes were seen in the gastric, paraesophageal, and paratracheal regions were noted. Needs close follow-up with Oncology following discharge. (6) PAD (peripheral artery disease): Current visit: Yes Status: Chronic Patient already follows with vascular at [facility]. No signs of critical limb ischemia. Continue statin therapy. Also on BB. Restarted DB-I and low dose aspirin. (7) Breast cancer: Current visit: Yes Status: Chronic IDC, ER/HI +, s/p lumpectomy and XRT, noncompliant with tamoxifen therapy (8) Urinary retention: Current visit: Yes Status: Acute It is possible that this was precipitated by administration of ativan. S/p benítez - now with successful voiding trial. Resolved. (9) Normocytic anemia: Current visit: Yes Status: Acute Potentially anemia of chronic disease based on normal iron, Low TIBC and elevated Ferritin. B12, FA, and TSH all checked and normal. Currently with drop post EGD with biopsy, with Hgb of 7 - s/p 1 unit of PRBCs on 10/07 with good response, and with H/H stable today. Patient has a history of PAD on antiplatelet therapy, as well as a strong history of ETOH abuse - stool for occult blood was reported as negative, and patient remains on IV PPI therapy. Monitor closely. (10) Malnutrition: Current visit: Yes Status: Acute Associated with chronic severe alcohol use disorder as well as dysphagia with decreased oral intake of solids due to potential esophageal mass. Continue to maximize nutrition. Also with mild but worsening hyponatremia previously - also hypochloremic. May be on basis of dehydration. Appropriate improvement with gentle hydration and improved po intake. (11) DVT prophylaxis: Current visit: Yes Status: Acute Lovenox SC. Consider holding if continued drop in Hgb. Subjective Interval history since last seen: 53 year old female with a prior history of ETOH abuse admitted from [facility] Emergency Department on 09/26/2018 with concern for alcohol withdrawl and sepsis from Pneumonia. Ms. Welch has a prior medical history significant for breast cancer s/p lumpectomy and XRT, noncompliant with tamoxifen therapy. She has also had dysphagia with solids, scheduled for evaluation but non-compliant with visits At [facility]. She uses tobacco and has a history of ETOH abuse. Other history also includes PAD, hypertension, and hypothyroidism. The patient was apparently driving to [place] on the day of admission when she suddenly felt palpitations, pulled over, and dialed 911. EMS found her to be in sinus tachycardia in 130's, and hypoxic with a pulse ox in the high 80's. According to reports, the patient reported chest pain to EMS. Though she was initially oriented, the patient was felt to be somewhat disoriented even on arrival to the emergency room. Her home medications were verified with her outpatient pharmacy - evidently however the patient had not been taking any of her medications. She also reported a 6 pack of beer daily drinking history at that time, with her last drink occuring 3 days prior to admission. However, she has since admitted to 3-6 mixed drinks nightly, each consisting of approximately 3 shots of [employer]. Soon after arrival she was noted to be agitated, restless, and suspected to have begun withdrawing from alcohol. There was no witnessed seizure activity, but there was a noticeable change in mental status. Her CT of the head was negative. She was found to be retaining urine (1.4 L out upon insertion of a benítez catheter). She was also noted to have a multi-focal pneumonia by CT of the chest. Following her admission she was also noted to have a UTI. Since the time of her admission Mrs. Welch has undergone alcohol withdrawl which now appears resolved. She is on treatment for an MSSA bacteremia, and completed treatment for an E.Coli UTI. She has a murmur on exam, with an essentially normal TTE that also showed no obvious evidence of endocarditis. She continues to have dysphagia to solids, but is tolerating a modified diet, now having undergone an EGD at [facility]. She has undergone a successfull void trial and her benítez is discontinued. She had profound hypomagnesemia despite aggressive repletion - now resolved with resolved hypokalemia as well. She is also anemic, previously stable and with a negative stool occult blood, with noted drop following EGD. Ms. Welch underwent and EGD on 10/05, with evidence of a hypoechoic mass in the thoracic esophagus, suspicious for malignancy. This was biopsied. Furthermore, evidence of abnormal appearing lymph nodes were seen in the gastric, paraesophageal, and paratracheal regions were noted. Recommendations made for a PET CT for staging. ID with recommendation for 4 weeks total of antibiotic therapy. She was changed to IV Cefazolin yesterday. No overnight events reported. Remains afebrile. Exam Narrative Exam Narrative: General: Thin woman, appears older than stated age. Comfortable and in no acute distress. Neck: Supple CV: Regular, nontachycardic, S1S2, No rubs or gallops. 3/6 LLSB murmur on exam. Pulmonary: Clear to auscultation bilaterally, no crackles, wheezing, or rhonchi Abdomen: + Bowel Sounds, soft, nontender, nondistended Vascular: No lower extremity edema Psych: Normal mood and affect. Objective Objective Clinical Data: Abnormal lab results 10/07/18 10/07/18 10/08/18 Range/Units 10:10 19:50 06:20 RBC (4.00-5.20) m/cumm Hgb 8.0 L (12.0-15.5) g/dL Hct 23.8 L (36.0-46.0) % RDW (11.7-14.6) % Absolute Monocytes (0.11-0.7) k/cumm Sodium 132 L (136-145) mmol/L Crossmatch See Detail 10/08/18 Range/Units 06:20 RBC 2.72 L (4.00-5.20) m/cumm Hgb 8.7 L (12.0-15.5) g/dL Hct 25.8 L (36.0-46.0) % RDW 18.3 H (11.7-14.6) % Absolute Monocytes 0.78 H (0.11-0.7) k/cumm Sodium (136-145) mmol/L Crossmatch Vital Signs Temperature 36.7 C 10/08/18 07:40 Temperature Source Tympanic 10/08/18 07:40 Pulse 88 10/08/18 07:40 Pulse Rhythm Regular 10/08/18 00:28 Pulse 100 H 10/05/18 07:19 Respiratory Rate 17 10/08/18 07:40 Respiratory Effort 10/08/18 00:28 Respiratory Depth Normal 10/08/18 00:28 Respiratory Pattern Normal 10/08/18 00:28 Blood Pressure 136/76 10/08/18 07:40 Blood Pressure Mean 69 10/05/18 07:19 Blood Pressure Position Supine 09/29/18 19:00 Pulse Oximetry 100 10/08/18 07:40 Oxygen Delivery Method Room Air 10/08/18 07:40 Oxygen Flow Rate 0 10/08/18 07:40 Pain Level 0 10/08/18 10:13 Comment 10/05/18 19:30 Intake & Output 10/07/18 10/08/18 10/08/18 23:59 11:59 23:59 Intake Total 967 / 967 383.0 / 383.0 Balance 967 / 967 383.0 / 383.0 Weight 48 kg Intake: IV 150 / 150 143.0 / 143.0 Oral 550 / 550 240 / 240 Blood Product 257 / 257 Rbc Leuko Reduced Unit 257 / 257 [id number] Other 10 Rbc Leuko Reduced Unit [id number] Other: Urine Appearance Clear Laboratory Results WBC 8.65 k/cumm (4.4-10.8) 10/08/18 06:20 RBC 2.72 m/cumm (4.00-5.20) L 10/08/18 06:20 Hgb 8.7 g/dL (12.0-15.5) L 10/08/18 06:20 Hct 25.8 % (36.0-46.0) L 10/08/18 06:20 MCV 94.9 fL (80-95) D 10/08/18 06:20 MCH 32.0 pg (27.0-33.0) 10/08/18 06:20 MCHC 33.7 g/dL (32.0-36.0) 10/08/18 06:20 RDW 18.3 % (11.7-14.6) H 10/08/18 06:20 Plt Count 359 x1000/uL (130-400) 10/08/18 06:20 MPV 9.9 fL (8.0-11.0) 10/08/18 06:20 Immature Gran % 0.2 10/08/18 06:20 Neutrophils % 71.5 10/08/18 06:20 Lymphocytes % 18.5 10/08/18 06:20 Monocytes % 9.0 10/08/18 06:20 Eosinophils % 0.3 10/08/18 06:20 Basophils % 0.5 10/08/18 06:20 Absolute Neutrophils 6.18 k/cumm (1.2-6.7) 10/08/18 06:20 Absolute Lymphocytes 1.60 k/cumm (1.2-3.4) 10/08/18 06:20 Absolute Monocytes 0.78 k/cumm (0.11-0.7) H 10/08/18 06:20 Absolute Eosinophils 0.03 k/cumm (0.0-0.7) 10/08/18 06:20 Absolute Basophils 0.04 k/cumm (0.0-0.2) 10/08/18 06:20 Differential Comment Rbc morph reviewed 09/28/18 06:23 RBC Morphology See below 09/28/18 06:23 Polychromasia Present 09/28/18 06:23 Macrocytosis 1+ 09/28/18 06:23 PT 10.6 sec (9.3-10.8) 09/28/18 06:23 INR 1.1 (1.0-3.5) 09/28/18 06:23 APTT 22.6 sec (21.0-31.4) 09/26/18 16:30 Sodium 132 mmol/L (136-145) L 10/08/18 06:20 Potassium 4.2 mmol/L (3.5-5.1) 10/08/18 06:20 Chloride 100 mmol/L (98-107) 10/08/18 06:20 Carbon Dioxide 24.5 mmol/L (21.0-32.0) 10/08/18 06:20 Anion Gap 7.5 mmol/L (3-11) 10/08/18 06:20 BUN 7 mg/dL (7-18) 10/08/18 06:20 Creatinine 0.64 mg/dL (0.55-1.02) 10/08/18 06:20 Estimated GFR/1.73 m2 >= 60.00 (mL/min/1.73m2) 10/08/18 06:20 Glucose 100 mg/dL (70-100) 10/08/18 06:20 Lactate 1.3 mmol/L (0.6-1.4) 09/27/18 07:23 Calcium 9.0 mg/dL (8.5-10.1) 10/08/18 06:20 Magnesium 2.2 mg/dL (1.8-2.4) 10/08/18 06:20 Iron 128 ug/dL (50-175) 09/27/18 07:23 TIBC 153 ug/dL (250-450) L 09/27/18 07:23 Transferrin % Sat 84 % (15-50) H 09/27/18 07:23 Ferritin 599 ng/mL (8-388) H 09/27/18 07:23 Total Bilirubin 0.7 mg/dL (0.2-1.0) 09/27/18 07:23 Conjugated Bilirubin 0.43 mg/dL (0.00-0.20) H 09/27/18 07:23 AST 91 U/L (15-37) H 09/27/18 07:23 ALT 19 U/L (12-78) 09/27/18 07:23 Alkaline Phosphatase 84 U/L (46-116) 09/27/18 07:23 Troponin I 0.06 ng/mL (0.00-0.06) 09/27/18 07:23 Total Protein 6.5 g/dL (6.4-8.2) 09/27/18 07:23 Albumin 2.0 g/dL (3.4-5.0) L 09/29/18 09:03 Prealbumin 5 mg/dL (20-40) L 10/01/18 06:45 Triglycerides 114 mg/dL (30-150) 09/27/18 07:23 Total Cholesterol 116 mg/dL (50-200) 09/27/18 07:23 LDL Cholesterol Direct 71 mg/dL (<100) 09/27/18 07:23 HDL Cholesterol 25 mg/dL (40-60) L 09/27/18 07:23 Vitamin B12 1404 pg/mL (193-986) H 09/27/18 07:23 25-OH Vitamin D Total 47.5 ng/ml (30-100) 10/01/18 06:45 Folate > 20.0 ng/mL (8.6-20.0) H 09/27/18 07:23 TSH Cancelled 09/26/18 17:58 Urine Color Yellow (Yellow) 09/26/18 18:50 Urine Clarity Sl cloudy 09/26/18 18:50 Urine pH 7.0 (5-8) 09/26/18 18:50 Ur Specific [place] 1.015 (1.005-1.025) 09/26/18 18:50 Urine Protein Negative mg/dL (Negative) 09/26/18 18:50 Urine Ketones Negative mg/dL (Negative) 09/26/18 18:50 Urine Blood Moderate (Negative) H 09/26/18 18:50 Urine Nitrite Negative (Negative) 09/26/18 18:50 Urine Bilirubin Negative (Negative) 09/26/18 18:50 Urine Urobilinogen 0.2 EU/dL (Up TO 0.2) 09/26/18 18:50 Ur Leukocyte Esterase Negative (Negative) 09/26/18 18:50 Urine RBC 0-2 (0-2) 11 18:50 Urine WBC 3-5 HPF (0-5) 09/26/18 18:50 Ur Epithelial Cells Few HPF (Negative) 09/26/18 18:50 Urine Crystals Negative HPF (Negative) 09/26/18 18:50 Urine Bacteria Packed HPF (Negative) 09/26/18 18:50 Urine Casts Negative LPF (Negative) 09/26/18 18:50 Urine Mucus Negative (Negative) 09/26/18 18:50 Ur Culture Indicated? Yes 09/26/18 18:50 Urine Glucose Negative mg/dL (Negative) 09/26/18 18:50 Vancomycin Trough 17.2 ug/mL (10.0-20.0) 09/28/18 16:50 Urine Opiates Screen Negative (Negative) 09/26/18 18:50 Urine Methadone Screen Negative (Negative) 09/26/18 18:50 Ur Barbiturates Screen Negative (Negative) 09/26/18 18:50 Ur Tricyclics Screen Negative (Negative) 09/26/18 18:50 Ur Amphetamines Screen Negative (Negative) 09/26/18 18:50 U Benzodiazepines Scrn Negative (Negative) 09/26/18 18:50 Urine Cocaine Screen Negative (Negative) 09/26/18 18:50 Ur THC Screen Negative (Negative) 09/26/18 18:50 Ethyl Alcohol < 3.0 mg/dL (<3) 09/26/18 16:30 Patient ABO/Rh O Positive 10/07/18 10:10 Antibody Screen Negative 10/07/18 10:10 Crossmatch See Detail 10/07/18 10:10
--- NOTE | 2018-10-08 15:49 | PGE_ITS ---
Date of Service Date of service: 10/08/18 Time of Service: 15:37 Assessment and Plan (1) Sepsis: Current visit: Yes Status: Acute Resolved. Culture results with MSSA Bacteremia and a pansensitive E.Coli UTI. Also with growth of enterococcus faecalis on Urine Culture, but with 50-100 ,000 colonies / ml. TTE without evidence of endocarditis. Initially maintained on VAncomycin and Pip-Tazo, narrowed to Oxacillin and Ancef (discontinued as patient had received 7 days of antibiotic therapy with appropriate coverage for UTI). Currently on Day #13 of antibiotic therapy for MSSA bacteremia. Plan had been for an eventual DEEDEE to ensure lack of endocarditis prior to determination of the length of antibiotic course. However, as Esophageal mass is mid thoracic, DEEDEE is very likely contraindicated. Discussed case with ID regarding length of antibiotic course, and given her relative immunosuppressed state in the setting of chronic alcoholic abuse, likely component of liver dysfunction, as well as prior and active malignancy recommendations were made for a total of 4 weeks of antibiotics. Repeat set from 10/02 with no growth X120 hours. Midline in place, change to Cefazolin for ease of application for completion of antibiotic course. Consider changing status to Swing Bed for an additional 2 week course of antibiotic therapy. (2) UTI (urinary tract infection): Current visit: Yes Status: Acute Completed 7 day course of antibiotics. (3) Alcohol withdrawal delirium: Current visit: Yes Status: Acute Resolved. CIWA discontinued previously. (4) Abnormal EKG: Current visit: Yes Status: Acute In setting of electrolyte abnormalities, acute illness including sepsis. Significance unclear. Minimal and equivocal troponin elevation downtrended and normalized. Monitored on telemetry without significant events. Consider further work-up in the future once stable. (5) Dysphagia: Current visit: Yes Status: Chronic With evidence of potential esophageal mass in patient with history of ETOH and Tobacco. EGD 10/05 with evidence of a hypoechoic mass in the thoracic esophagus, suspicious for malignancy. This was biopsied. Furthermore, evidence of abnormal appearing lymph nodes were seen in the gastric, paraesophageal, and paratracheal regions were noted. Needs close follow-up with Oncology following discharge. (6) PAD (peripheral artery disease): Current visit: Yes Status: Chronic Patient already [place] [facility] No signs of critical limb ischemia. Continue statin therapy. Also on BB. Restarted DB-I and low dose aspirin. (7) Breast cancer: Current visit: Yes Status: Chronic IDC, ER/AZ +, s/p lumpectomy and XRT, noncompliant with tamoxifen therapy (8) Urinary retention: Current visit: Yes Status: Acute It is possible that this was precipitated by administration of ativan. S/ p benítez - now with successful voiding trial. Resolved. (9) Normocytic anemia: Current visit: Yes Status: Acute Potentially anemia of chronic disease based on normal iron, Low TIBC and elevated Ferritin. B12, FA, and TSH all checked and normal. Currently with drop post EGD with biopsy, with Hgb of 7 - s/p 1 unit of PRBCs on 10/07 with good response, and with H/H stable today. Patient has a history of PAD on antiplatelet therapy, as well as a strong history of ETOH abuse - stool for occult blood was reported as negative, and patient remains on IV PPI therapy. Monitor closely. (10) Malnutrition: Current visit: Yes Status: Acute Associated with chronic severe alcohol use disorder as well as dysphagia with decreased oral intake of solids due to potential esophageal mass. Continue to maximize nutrition. Also with mild but worsening hyponatremia previously - also hypochloremic. May be on basis of dehydration. Appropriate improvement with gentle hydration and improved po intake. (11) DVT prophylaxis: Current visit: Yes Status: Acute Lovenox SC. Consider holding if continued drop in Hgb. Subjective Interval history since last seen: 53 year old female with a prior history of ETOH abuse admitted from [facility] Emergency Department on 09/26/2018 with concern for alcohol withdrawl and sepsis from Pneumonia. Ms. Welch has a prior medical history significant for breast cancer s/p lumpectomy and XRT, noncompliant with tamoxifen therapy. She has also had dysphagia with solids, scheduled for evaluation but non-compliant with visits [place] [facility] She uses tobacco and has a history of ETOH abuse. Other history also includes PAD, hypertension, and hypothyroidism. The patient was apparently driving to [place] on the day of admission when she suddenly felt palpitations , pulled over, and dialed 911. EMS found her to be in sinus tachycardia in 130's , and hypoxic with a pulse ox in the high 80's. According to reports, the patient reported chest pain to EMS. Though she was initially oriented, the patient was felt to be somewhat disoriented even on arrival to the emergency room. Her home medications were verified with her outpatient pharmacy - evidently however the patient had not been taking any of her medications. She also reported a 6 pack of beer daily drinking history at that time, with her last drink occuring 3 days prior to admission. However, she has since admitted to 3-6 mixed drinks nightly, each consisting of approximately 3 shots of [employer]. Soon after arrival she was noted to be agitated, restless, and suspected to have begun withdrawing from alcohol. There was no witnessed seizure activity, but there was a noticeable change in mental status. Her CT of the head was negative. She was found to be retaining urine (1.4 L out upon insertion of a benítez catheter). She was also noted to have a multi-focal pneumonia by CT of the chest. Following her admission she was also noted to have a UTI. Since the time of her admission Mrs. Welch has undergone alcohol withdrawl which now appears resolved. She is on treatment for an MSSA bacteremia, and completed treatment for an E.Coli UTI. She has a murmur on exam, with an essentially normal TTE that also showed no obvious evidence of endocarditis. She continues to have dysphagia to solids, but is tolerating a modified diet, now having undergone an [place] [facility] She has undergone a successfull void trial and her benítez is discontinued. She had profound hypomagnesemia despite aggressive repletion - now resolved with resolved hypokalemia as well. She is also anemic, previously stable and with a negative stool occult blood, with noted drop following EGD. Ms. Welch underwent and EGD on 10/05, with evidence of a hypoechoic mass in the thoracic esophagus, suspicious for malignancy. This was biopsied. Furthermore, evidence of abnormal appearing lymph nodes were seen in the gastric, paraesophageal, and paratracheal regions were noted. Recommendations made for a PET CT for staging. ID with recommendation for 4 weeks total of antibiotic therapy. She was changed to IV Cefazolin yesterday. No overnight events reported. Remains afebrile. Exam Narrative Exam Narrative: General: Thin woman, appears older than stated age. Comfortable and in no acute distress. Neck: Supple CV: Regular, nontachycardic, S1S2, No rubs or gallops. 3/6 LLSB murmur on exam. Pulmonary: Clear to auscultation bilaterally, no crackles, wheezing, or rhonchi Abdomen: + Bowel Sounds, soft, nontender, nondistended Vascular: No lower extremity edema Psych: Normal mood and affect. Objective Objective Clinical Data: Abnormal lab results 10/07/18 10/07/18 10/08/18 Range/Units 10:10 19:50 06:20 RBC (4.00-5.20) m/cumm Hgb 8.0 L (12.0-15.5) g/dL Hct 23.8 L (36.0-46.0) % RDW (11.7-14.6) % Absolute Monocytes (0.11-0.7) k/cumm Sodium 132 L (136-145) mmol/L Crossmatch See Detail 10/08/18 Range/Units 06:20 RBC 2.72 L (4.00-5.20) m/cumm Hgb 8.7 L (12.0-15.5) g/dL Hct 25.8 L (36.0-46.0) % RDW 18.3 H (11.7-14.6) % Absolute Monocytes 0.78 H (0.11-0.7) k/cumm Sodium (136-145) mmol/L Crossmatch Vital Signs Temperature 36.7 C 10/08/18 07:40 Temperature Source Tympanic 10/08/18 07:40 Pulse 88 10/08/18 07:40 Pulse Rhythm Regular 10/08/18 00:28 Pulse 100 H 10/05/18 07:19 Respiratory Rate 17 10/08/18 07:40 Respiratory Effort 10/08/18 00:28 Respiratory Depth Normal 10/08/18 00:28 Respiratory Pattern Normal 10/08/18 00:28 Blood Pressure 136/76 10/08/18 07:40 Blood Pressure Mean 69 10/05/18 07:19 Blood Pressure Position Supine 09/29/18 19:00 Pulse Oximetry 100 10/08/18 07:40 Oxygen Delivery Method Room Air 10/08/18 07:40 Oxygen Flow Rate 0 10/08/18 07:40 Pain Level 0 10/08/18 10:13 Comment 10/05/18 19:30 Intake & Output 10/07/18 10/08/18 10/08/18 23:59 11:59 23:59 Intake Total 967 / 967 383.0 / 383.0 Balance 967 / 967 383.0 / 383.0 Weight 48 kg Intake: IV 150 / 150 143.0 / 143.0 Oral 550 / 550 240 / 240 Blood Product 257 / 257 Rbc Leuko Reduced Unit 257 / 257 [id number] Other 10 Rbc Leuko Reduced Unit [id number] Other: Urine Appearance Clear Laboratory Results WBC 8.65 k/cumm (4.4-10.8) 10/08/18 06:20 RBC 2.72 m/cumm (4.00-5.20) L 10/08/18 06:20 Hgb 8.7 g/dL (12.0-15.5) L 10/08/18 06:20 Hct 25.8 % (36.0-46.0) L 10/08/18 06:20 MCV 94.9 fL (80-95) D 10/08/18 06:20 MCH 32.0 pg (27.0-33.0) 10/08/18 06:20 MCHC 33.7 g/dL (32.0-36.0) 10/08/18 06:20 RDW 18.3 % (11.7-14.6) H 10/08/18 06:20 Plt Count 359 x1000/uL (130-400) 10/08/18 06:20 MPV 9.9 fL (8.0-11.0) 10/08/18 06:20 Immature Gran % 0.2 10/08/18 06:20 Neutrophils % 71.5 10/08/18 06:20 Lymphocytes % 18.5 10/08/18 06:20 Monocytes % 9.0 10/08/18 06:20 Eosinophils % 0.3 10/08/18 06:20 Basophils % 0.5 10/08/18 06:20 Absolute Neutrophils 6.18 k/cumm (1.2-6.7) 10/08/18 06:20 Absolute Lymphocytes 1.60 k/cumm (1.2-3.4) 10/08/18 06:20 Absolute Monocytes 0.78 k/cumm (0.11-0.7) H 10/08/18 06:20 Absolute Eosinophils 0.03 k/cumm (0.0-0.7) 10/08/18 06:20 Absolute Basophils 0.04 k/cumm (0.0-0.2) 10/08/18 06:20 Differential Comment Rbc morph reviewed 09/28/18 06:23 RBC Morphology See below 09/28/18 06:23 Polychromasia Present 09/28/18 06:23 Macrocytosis 1+ 09/28/18 06:23 PT 10.6 sec (9.3-10.8) 09/28/18 06:23 INR 1.1 (1.0-3.5) 09/28/18 06:23 APTT 22.6 sec (21.0-31.4) 09/26/18 16:30 Sodium 132 mmol/L (136-145) L 10/08/18 06:20 Potassium 4.2 mmol/L (3.5-5.1) 10/08/18 06:20 Chloride 100 mmol/L (98-107) 10/08/18 06:20 Carbon Dioxide 24.5 mmol/L (21.0-32.0) 10/08/18 06:20 Anion Gap 7.5 mmol/L (3-11) 10/08/18 06:20 BUN 7 mg/dL (7-18) 10/08/18 06:20 Creatinine 0.64 mg/dL (0.55-1.02) 10/08/18 06:20 Estimated GFR/1.73 m2 >= 60.00 (mL/min/1.73m2) 10/08/18 06:20 Glucose 100 mg/dL (70-100) 10/08/18 06:20 Lactate 1.3 mmol/L (0.6-1.4) 09/27/18 07:23 Calcium 9.0 mg/dL (8.5-10.1) 10/08/18 06:20 Magnesium 2.2 mg/dL (1.8-2.4) 10/08/18 06:20 Iron 128 ug/dL (50-175) 09/27/18 07:23 TIBC 153 ug/dL (250-450) L 09/27/18 07:23 Transferrin % Sat 84 % (15-50) H 09/27/18 07:23 Ferritin 599 ng/mL (8-388) H 09/27/18 07:23 Total Bilirubin 0.7 mg/dL (0.2-1.0) 09/27/18 07:23 Conjugated Bilirubin 0.43 mg/dL (0.00-0.20) H 09/27/18 07:23 AST 91 U/L (15-37) H 09/27/18 07:23 ALT 19 U/L (12-78) 09/27/18 07:23 Alkaline Phosphatase 84 U/L (46-116) 09/27/18 07:23 Troponin I 0.06 ng/mL (0.00-0.06) 09/27/18 07:23 Total Protein 6.5 g/dL (6.4-8.2) 09/27/18 07:23 Albumin 2.0 g/dL (3.4-5.0) L 09/29/18 09:03 Prealbumin 5 mg/dL (20-40) L 10/01/18 06:45 Triglycerides 114 mg/dL (30-150) 09/27/18 07:23 Total Cholesterol 116 mg/dL (50-200) 09/27/18 07:23 LDL Cholesterol Direct 71 mg/dL (<100) 09/27/18 07:23 HDL Cholesterol 25 mg/dL (40-60) L 09/27/18 07:23 Vitamin B12 1404 pg/mL (193-986) H 09/27/18 07:23 25-OH Vitamin D Total 47.5 ng/ml (30-100) 10/01/18 06:45 Folate > 20.0 ng/mL (8.6-20.0) H 09/27/18 07:23 TSH Cancelled 09/26/18 17:58 Urine Color Yellow (Yellow) 09/26/18 18:50 Urine Clarity Sl cloudy 09/26/18 18:50 Urine pH 7.0 (5-8) 09/26/18 18:50 Ur Specific [place] 1.015 (1.005-1.025) 09/26/18 18:50 Urine Protein Negative mg/dL (Negative) 09/26/18 18:50 Urine Ketones Negative mg/dL (Negative) 09/26/18 18:50 Urine Blood Moderate (Negative) H 09/26/18 18:50 Urine Nitrite Negative (Negative) 09/26/18 18:50 Urine Bilirubin Negative (Negative) 09/26/18 18:50 Urine Urobilinogen 0.2 EU/dL (Up TO 0.2) 09/26/18 18:50 Ur Leukocyte Esterase Negative (Negative) 09/26/18 18:50 Urine RBC 0-2 (0-2) 11 18:50 Urine WBC 3-5 HPF (0-5) 09/26/18 18:50 Ur Epithelial Cells Few HPF (Negative) 09/26/18 18:50 Urine Crystals Negative HPF (Negative) 09/26/18 18:50 Urine Bacteria Packed HPF (Negative) 09/26/18 18:50 Urine Casts Negative LPF (Negative) 09/26/18 18:50 Urine Mucus Negative (Negative) 09/26/18 18:50 Ur Culture Indicated? Yes 09/26/18 18:50 Urine Glucose Negative mg/dL (Negative) 09/26/18 18:50 Vancomycin Trough 17.2 ug/mL (10.0-20.0) 09/28/18 16:50 Urine Opiates Screen Negative (Negative) 09/26/18 18:50 Urine Methadone Screen Negative (Negative) 09/26/18 18:50 Ur Barbiturates Screen Negative (Negative) 09/26/18 18:50 Ur Tricyclics Screen Negative (Negative) 09/26/18 18:50 Ur Amphetamines Screen Negative (Negative) 09/26/18 18:50 U Benzodiazepines Scrn Negative (Negative) 09/26/18 18:50 Urine Cocaine Screen Negative (Negative) 09/26/18 18:50 Ur THC Screen Negative (Negative) 09/26/18 18:50 Ethyl Alcohol < 3.0 mg/dL (<3) 09/26/18 16:30 Patient ABO/Rh O Positive 10/07/18 10:10 Antibody Screen Negative 10/07/18 10:10 Crossmatch See Detail 10/07/18 10:10
[2018-10-08 17:49] VITALS: BP 139/72; PULSE 90; RESP 18; TEMP 37.1; O2SAT 97
[2018-10-08 19:44] VITALS: BP 122/65; PULSE 81; RESP 18; TEMP 36.6; O2SAT 97
[2018-10-08] MEDS: Rosuvastatin 5 MG TAB PO (21:11)
[2018-10-08] MEDS: Enoxaparin 40 MG/0.4 ML SYR SC (21:12)
[2018-10-08] MEDS: Pantoprazole 40 MG VIAL IVP (21:14)
[2018-10-08 23:46] VITALS: BP 153/75; PULSE 86; RESP 18; TEMP 37.2; O2SAT 98
[2018-10-09] VITALS (7 sets, daily range): BP systolic 98–114; BP diastolic 62–70; PULSE 77–96; RESP 17–18; TEMP 36.6–37.8; O2SAT 99–100
[2018-10-09] MEDS: Normal Saline Flush 10 ML SYR IVP ×4 (01:24→21:50)
[2018-10-09] MEDS: Acetaminophen 325 MG TAB 650 MG PO (01:33)
[2018-10-09] MEDS: Levothyroxine 50 MCG TAB PO (06:48)
[2018-10-09 07:23] LABS: Abs Immature Grans 0.01 k/cumm (0.0-0.09); Absolute Basophil Count 0.03 k/cumm (0.0-0.2); Absolute Eosinophil Count 0.02 k/cumm (0.0-0.7); Absolute Lymphocyte Count 1.61 k/cumm (1.2-3.4); Absolute Monocyte Count 0.65 k/cumm (0.11-0.7); Absolute Neutrophil Count 5.46 k/cumm (1.2-6.7); Basophils % 0.4; Eosinophils % 0.3; HCT 25.5 % (36.0-46.0); HGB 8.3 g/dL (12.0-15.5); Immature Grans % 0.1; Lymphocytes % 20.7; Mean Corp. HGB Concentration 32.5 g/dL (32.0-36.0); Mean Corpuscular Hemoglobin 31.3 pg (27.0-33.0); Mean Corpuscular Volume 96.2 fL (80-95); Monocytes % 8.4; Neutrophils % 70.1; Platelet Count 397 x1000/uL (130-400); RBC 2.65 m/cumm (4.00-5.20); White Blood Cell Count 7.78 k/cumm (4.4-10.8)
[2018-10-09 07:35] LABS: Anion Gap 7.4 mmol/L (3-11); BUN 8 mg/dL (7-18); CO2 24.6 mmol/L (21.0-32.0); CREATININE 0.56 mg/dL (0.55-1.02); Calcium 9.3 mg/dL (8.5-10.1); Chloride 99 mmol/L (98-107); Glucose 96 mg/dL (70-100); Magnesium 1.2 mg/dL (1.8-2.4); Potassium 4.4 mmol/L (3.5-5.1); Sodium 131 mmol/L (136-145)
[2018-10-09] MEDS: Nicotine 14 MG/24 HR PATCH TD (08:26)
[2018-10-09] MEDS: Acetaminophen 500 MG TAB 1000 MG PO ×2 (08:28→17:28)
[2018-10-09] MEDS: Aspirin 81 MG CHEW PO (08:28)
[2018-10-09] MEDS: Folic Acid 1 MG TAB PO (08:30)
[2018-10-09] MEDS: Potassium Chloride 20 MEQ TABCR PO (08:30)
[2018-10-09] MEDS: Lactobacillus Acidophilus CAP 1 CAP PO ×2 (08:30→20:44)
[2018-10-09] MEDS: Thiamine 100 MG TAB PO (08:31)
[2018-10-09] MEDS: Lisinopril 10 MG TAB PO (08:31)
[2018-10-09] MEDS: Multivitamin TAB 1 TAB PO (08:31)
[2018-10-09] MEDS: Calcium Carbonate 1.5 GM TAB PO ×2 (08:31→20:44)
[2018-10-09] MEDS: Metoprolol 50 MG TAB PO ×2 (08:32→20:44)
[2018-10-09] MEDS: Venlafaxine 150 MG CAPCR PO (10:03)
[2018-10-09] MEDS: Normal Saline 500 ML 200 ML IV (10:58)
[2018-10-09] MEDS: MAGNESIUM SULFATE 4 GM/100 ML BAG IVPB (11:45)
--- NOTE | 2018-10-09 12:21 | PDOC.CMPRO ---
- If Service Date Differs Date of service: 10/09/18 Time of Service: 12:21 Care Management Progress Note S/O: Cece is sitting in her chair watching TV and eating ice cream when this mortgage underwriter visits. Cece states that she is feeling well, she discusses her hospitalization and diagnosis with this mortgage underwriter this morning. Cece discussed her cancer diagnosis and CM facilitated exercise in processing and reflecting on Ccee's feelings in regards to this. Per morning meeting Cece is not ready to transition to a swingbed level of care today. CM explained the swingbed program to Cece and offered a contract for review which Cece declined. 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 A: Cece is a 53 year old female admitted to [facility] 09/26/18 with ETOH withdrawal, SIRS, Hypokalemia and Hypomagnesemia. She continues IV antibiotic treatment for an MSSA bacteremia, E.Coli and Enterococcus UTI. P: Cece will most likely require a swingbed stay for IV antibiotics as she will need two more weeks of IV antibiotics at this time. Cece then will discharge home when medically ready per MD. Anticipate patient will discharge with no services and follow up with her PCP and oncology MD at [facility]. Cece will transport via private vehicle with her family at time of discharge. CM will continue to offer support to patient and care team regarding discharge planning and disposition.
[2018-10-09 12:23] LABS: C-Reactive Protein 0.55 mg/dL (0.0-0.3)
--- NOTE | 2018-10-09 12:26 | CMPROGNOTE_ITS ---
- If Service Date Differs Date of service: 10/09/18 Time of Service: 12:21 Care Management Progress Note S/O: Cece is sitting in her chair watching TV and eating ice cream when this continuity writer visits. Cece states that she is feeling well, she discusses her hospitalization and diagnosis with this continuity writer this morning. Cece discussed her cancer diagnosis and CM facilitated exercise in processing and reflecting on Cece's feelings in regards to this. Per morning meeting Cece is not ready to transition to a swingbed level of care today. CM explained the swingbed program to Cece and offered a contract for review which Cece declined. 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 A: Cece is a 53 year old female admitted to [facility] 09/26/18 with ETOH withdrawal , SIRS, Hypokalemia and Hypomagnesemia. She continues IV antibiotic treatment for an MSSA bacteremia, E.Coli and Enterococcus UTI. P: Cece will most likely require a swingbed stay for IV antibiotics as she will need two more weeks of IV antibiotics at this time. Cece then will discharge home when medically ready per MD. Anticipate patient will discharge with no services and follow up with her PCP and oncology MD at [facility] [place]. Cece will transport via private vehicle with her family at time of discharge. CM will continue to offer support to patient and care team regarding discharge planning and disposition.
[2018-10-09 14:15] LABS: Bilirubin Negative (Negative); Blood Negative (Negative); Clarity Clear; Glucose Negative (Negative); Ketones Negative (Negative); Leukocyte Esterase Negative (Negative); Nitrite Negative (Negative); Urobilinogen 0.2 EU/dL (Up TO 0.2)
--- NOTE | 2018-10-09 17:04 | PGE_ITS ---
Date of Service Date of service: 10/09/18 Time of Service: 16:30 Assessment and Plan (1) Sepsis: Current visit: Yes Status: Acute with MSSA Bacteremia and a pansensitive E.Coli UTI, both present on admission. Also with growth of enterococcus faecalis on Urine Culture, but with 50-100,000 colonies / ml. TTE without evidence of endocarditis. I am concerned about recurrent fever - ?line infection - blood cultures repeated today. Continue Ancef (Day 14). F/u culture results. (S/p Vancomycin, zosyn, Oxacillin). (2) Aspiration pneumonia: Current visit: Yes Status: Acute Present on admission. Clinically resolved. On modified diet. (3) Alcohol withdrawal delirium: Current visit: Yes Status: Acute Resolved. CIWA discontinued previously. (4) Abnormal EKG: Current visit: Yes Status: Acute Clinical significance unclear. Will need ischemic workup as outpatient. (5) Dysphagia: Current visit: Yes Status: Chronic With evidence of an esophageal mass in patient with history of ETOH and Tobacco. EGD 10/05 with evidence of a hypoechoic mass in the thoracic esophagus , suspicious for malignancy, s/p bx, pathology pending. Gastric, paraesophageal , and paratracheal lymphadenopathy noted. Oncology follow up upon discharge. (6) Hypomagnesemia: Current visit: Yes Status: Acute At this point, at least partially due to PPI. Tele resumed today. Replete IV and PO. (7) Hypokalemia: Current visit: Yes Status: Resolved Resolved. Continue to monitor (8) PAD (peripheral artery disease): Current visit: Yes Status: Chronic Patient already follows with vascular at [facility]. No signs of critical limb ischemia. Continue statin therapy and asa. (9) Breast cancer: Current visit: Yes Status: Chronic IDC, ER/TX +, s/p lumpectomy and XRT, noncompliant with tamoxifen therapy. Follow up as outpatient. (10) Urinary retention: Current visit: Yes Status: Acute In setting of therapy with ativan. Passed voiding trial. (11) Normocytic anemia: Current visit: Yes Status: Acute S/p transfusion of 1 unit of pRBC's - H/H relatively stable. Will continue to monitor. Patient has a history of PAD on antiplatelet therapy, as well as a strong history of ETOH abuse. Hemoccult negative. (12) DVT prophylaxis: Current visit: Yes Status: Acute Lovenox SQ (13) UTI (urinary tract infection): Current visit: Yes Status: Acute Completed 7 day course of antibiotics. (14) Malnutrition: Current visit: Yes Status: Acute Associated with chronic severe alcohol use disorder as well as dysphagia with decreased oral intake of solids due to potential esophageal mass. Continue to maximize nutrition. Continue gentle hydration and improved po intake. Subjective Interval history since last seen: The patient states she has not felt well for the last 24 hours. She had a temperature of 37.8 recorded this morning. Denies dizziness, chest pain, shortness of breath, nausea, vomiting. Mostly reports generalized malaise/feeling wiped out. Exam Narrative Exam Narrative: General: Middle-aged female, comfortable in bed HEENT: EOMI, MMM Heart: RRR, +JAG Lungs: CTAB GI: abdomen soft, nontender, nondistended Extremities: no e/c/c BLE's. Objective Objective Clinical Data: Abnormal lab results 10/09/18 10/09/18 10/09/18 Range/Units 06:40 06:40 11:45 RBC 2.65 L (4.00-5.20) m/cumm Hgb 8.3 L (12.0-15.5) g/dL Hct 25.5 L (36.0-46.0) % MCV 96.2 H (80-95) fL RDW 18.0 H (11.7-14.6) % Sodium 131 L (136-145) mmol/L Magnesium 1.2 L (1.8-2.4) mg/dL C-Reactive Protein 0.55 H (0.0-0.3) mg/dL Vital Signs Temperature 37.2 C 10/09/18 15:59 Temperature Source Tympanic 10/09/18 15:59 Pulse 94 H 10/09/18 15:59 Pulse Rhythm Regular 10/09/18 08:20 Pulse 100 H 10/05/18 07:19 Respiratory Rate 18 10/09/18 15:59 Respiratory Effort Non-Labored 10/09/18 08:20 Respiratory Depth Normal 10/09/18 08:20 Respiratory Pattern Normal 10/09/18 08:20 Blood Pressure 98/62 L 10/09/18 15:59 Blood Pressure Mean 69 10/05/18 07:19 Blood Pressure Position Supine 09/29/18 19:00 Pulse Oximetry 100 10/09/18 15:59 Oxygen Delivery Method Room Air 10/09/18 15:59 Oxygen Flow Rate 0 10/09/18 15:59 Pain Level 4 10/09/18 08:28 Comment 10/08/18 08:00 Intake & Output 10/08/18 10/09/18 12 23:59 11:59 23:59 Intake Total 662 / 662 850 / 850 250 / 250 Balance 662 / 662 850 / 850 250 / 250 Weight 48 kg Intake: IV 182 / 182 70 / 70 Oral 480 / 480 780 / 780 250 / 250 Other: Urine Color Yellow Urine Appearance Clear Comment Void x3 in the toilet throughout the day. RN unable to visualize urine ; pt. up independently. Voiding Methods Toilet Laboratory Results WBC 7.78 k/cumm (4.4-10.8) 10/09/18 06:40 RBC 2.65 m/cumm (4.00-5.20) L 10/09/18 06:40 Hgb 8.3 g/dL (12.0-15.5) L 10/09/18 06:40 Hct 25.5 % (36.0-46.0) L 10/09/18 06:40 MCV 96.2 fL (80-95) H 10/09/18 06:40 MCH 31.3 pg (27.0-33.0) 10/09/18 06:40 MCHC 32.5 g/dL (32.0-36.0) 10/09/18 06:40 RDW 18.0 % (11.7-14.6) H 10/09/18 06:40 Plt Count 397 x1000/uL (130-400) 10/09/18 06:40 MPV 10.0 fL (8.0-11.0) 10/09/18 06:40 Immature Gran % 0.1 10/09/18 06:40 Neutrophils % 70.1 10/09/18 06:40 Lymphocytes % 20.7 10/09/18 06:40 Monocytes % 8.4 10/09/18 06:40 Eosinophils % 0.3 10/09/18 06:40 Basophils % 0.4 10/09/18 06:40 Absolute Neutrophils 5.46 k/cumm (1.2-6.7) 10/09/18 06:40 Absolute Lymphocytes 1.61 k/cumm (1.2-3.4) 10/09/18 06:40 Absolute Monocytes 0.65 k/cumm (0.11-0.7) 10/09/18 06:40 Absolute Eosinophils 0.02 k/cumm (0.0-0.7) 10/09/18 06:40 Absolute Basophils 0.03 k/cumm (0.0-0.2) 10/09/18 06:40 Differential Comment Rbc morph reviewed 09/28/18 06:23 RBC Morphology See below 09/28/18 06:23 Polychromasia Present 09/28/18 06:23 Macrocytosis 1+ 09/28/18 06:23 PT 10.6 sec (9.3-10.8) 09/28/18 06:23 INR 1.1 (1.0-3.5) 09/28/18 06:23 APTT 22.6 sec (21.0-31.4) 09/26/18 16:30 Sodium 131 mmol/L (136-145) L 10/09/18 06:40 Potassium 4.4 mmol/L (3.5-5.1) 10/09/18 06:40 Chloride 99 mmol/L (98-107) 10/09/18 06:40 Carbon Dioxide 24.6 mmol/L (21.0-32.0) 10/09/18 06:40 Anion Gap 7.4 mmol/L (3-11) 10/09/18 06:40 BUN 8 mg/dL (7-18) 10/09/18 06:40 Creatinine 0.56 mg/dL (0.55-1.02) 10/09/18 06:40 Estimated GFR/1.73 m2 >= 60.00 (mL/min/1.73m2) 10/09/18 06:40 Glucose 96 mg/dL (70-100) 10/09/18 06:40 Lactate 1.3 mmol/L (0.6-1.4) 09/27/18 07:23 Calcium 9.3 mg/dL (8.5-10.1) 10/09/18 06:40 Magnesium 1.2 mg/dL (1.8-2.4) L 10/09/18 06:40 Iron 128 ug/dL (50-175) 09/27/18 07:23 TIBC 153 ug/dL (250-450) L 09/27/18 07:23 Transferrin % Sat 84 % (15-50) H 09/27/18 07:23 Ferritin 599 ng/mL (8-388) H 09/27/18 07:23 Total Bilirubin 0.7 mg/dL (0.2-1.0) 09/27/18 07:23 Conjugated Bilirubin 0.43 mg/dL (0.00-0.20) H 09/27/18 07:23 AST 91 U/L (15-37) H 09/27/18 07:23 ALT 19 U/L (12-78) 09/27/18 07:23 Alkaline Phosphatase 84 U/L (46-116) 09/27/18 07:23 Troponin I 0.06 ng/mL (0.00-0.06) 09/27/18 07:23 C-Reactive Protein 0.55 mg/dL (0.0-0.3) H 10/09/18 11:45 Total Protein 6.5 g/dL (6.4-8.2) 09/27/18 07:23 Albumin 2.0 g/dL (3.4-5.0) L 09/29/18 09:03 Prealbumin 5 mg/dL (20-40) L 10/01/18 06:45 Triglycerides 114 mg/dL (30-150) 09/27/18 07:23 Total Cholesterol 116 mg/dL (50-200) 09/27/18 07:23 LDL Cholesterol Direct 71 mg/dL (<100) 09/27/18 07:23 HDL Cholesterol 25 mg/dL (40-60) L 09/27/18 07:23 Vitamin B12 1404 pg/mL (193-986) H 09/27/18 07:23 25-OH Vitamin D Total 47.5 ng/ml (30-100) 10/01/18 06:45 Folate > 20.0 ng/mL (8.6-20.0) H 09/27/18 07:23 TSH Cancelled 09/26/18 17:58 Urine Color Yellow (Yellow) 10/09/18 13:56 Urine Clarity Clear 10/09/18 13:56 Urine pH 7.0 (5-8) 10/09/18 13:56 Ur Specific [place] 1.020 (1.005-1.025) 10/09/18 13:56 Urine Protein Negative mg/dL (Negative) 10/09/18 13:56 Urine Ketones Negative mg/dL (Negative) 10/09/18 13:56 Urine Blood Negative (Negative) 10/09/18 13:56 Urine Nitrite Negative (Negative) 10/09/18 13:56 Urine Bilirubin Negative (Negative) 10/09/18 13:56 Urine Urobilinogen 0.2 EU/dL (Up TO 0.2) 10/09/18 13:56 Ur Leukocyte Esterase Negative (Negative) 10/09/18 13:56 Urine RBC 0-2 (0-2) 09/26/18 18:50 Urine WBC 3-5 HPF (0-5) 09/26/18 18:50 Ur Epithelial Cells Few HPF (Negative) 09/26/18 18:50 Urine Crystals Negative HPF (Negative) 09/26/18 18:50 Urine Bacteria Packed HPF (Negative) 09/26/18 18:50 Urine Casts Negative LPF (Negative) 09/26/18 18:50 Urine Mucus Negative (Negative) 09/26/18 18:50 Ur Culture Indicated? Yes 09/26/18 18:50 Urine Glucose Negative mg/dL (Negative) 10/09/18 13:56 Vancomycin Trough 17.2 ug/mL (10.0-20.0) 09/28/18 16:50 Urine Opiates Screen Negative (Negative) 09/26/18 18:50 Urine Methadone Screen Negative (Negative) 09/26/18 18:50 Ur Barbiturates Screen Negative (Negative) 09/26/18 18:50 Ur Tricyclics Screen Negative (Negative) 09/26/18 18:50 Ur Amphetamines Screen Negative (Negative) 09/26/18 18:50 U Benzodiazepines Scrn Negative (Negative) 09/26/18 18:50 Urine Cocaine Screen Negative (Negative) 09/26/18 18:50 Ur THC Screen Negative (Negative) 09/26/18 18:50 Ethyl Alcohol < 3.0 mg/dL (<3) 09/26/18 16:30 Patient ABO/Rh O Positive 10/07/18 10:10 Antibody Screen Negative 11/29/18 10:10 Crossmatch See Detail 10/07/18 10:10 Blood cultures pending (one set from midline)
[2018-10-09] MEDS: Magnesium Oxide 400 MG TAB 800 MG PO (20:45)
[2018-10-09] MEDS: Pantoprazole 40 MG VIAL IVP (21:49)
[2018-10-09] MEDS: Enoxaparin 40 MG/0.4 ML SYR SC (21:49)
[2018-10-09] MEDS: Rosuvastatin 5 MG TAB PO (21:49)
[2018-10-10] VITALS (9 sets, daily range): BP systolic 92–122; BP diastolic 52–66; PULSE 56–104; RESP 13–18; TEMP 36.4–37.4; O2SAT 96–99
[2018-10-10] MEDS: Acetaminophen 500 MG TAB 1000 MG PO (06:54)
[2018-10-10 07:02] LABS: Abs Immature Grans 0.03 k/cumm (0.0-0.09); Absolute Basophil Count 0.03 k/cumm (0.0-0.2); Absolute Eosinophil Count 0.02 k/cumm (0.0-0.7); Absolute Lymphocyte Count 1.73 k/cumm (1.2-3.4); Absolute Monocyte Count 0.84 k/cumm (0.11-0.7); Absolute Neutrophil Count 6.32 k/cumm (1.2-6.7); Basophils % 0.3; Eosinophils % 0.2; HGB 7.9 g/dL (12.0-15.5); Immature Grans % 0.3; Lymphocytes % 19.3; Mean Corp. HGB Concentration 32.9 g/dL (32.0-36.0); Mean Corpuscular Hemoglobin 32.1 pg (27.0-33.0); Mean Corpuscular Volume 97.6 fL (80-95); Mean Platelet Volume 9.6 fL (8.0-11.0); Monocytes % 9.4; Neutrophils % 70.5; Platelet Count 434 x1000/uL (130-400); RBC 2.46 m/cumm (4.00-5.20); RBC Distribution Width 17.8 % (11.7-14.6); White Blood Cell Count 8.97 k/cumm (4.4-10.8)
[2018-10-10 07:10] LABS: BUN 11 mg/dL (7-18); CREATININE 0.58 mg/dL (0.55-1.02); Calcium 9.3 mg/dL (8.5-10.1); Chloride 96 mmol/L (98-107); Glucose 100 mg/dL (70-100); Potassium 4.4 mmol/L (3.5-5.1); Sodium 130 mmol/L (136-145)
[2018-10-10 07:37] LABS: C-Reactive Protein 0.65 mg/dL (0.0-0.3); Magnesium 1.4 mg/dL (1.8-2.4)
[2018-10-10] MEDS: Potassium Chloride 20 MEQ TABCR PO (07:50)
[2018-10-10] MEDS: Lisinopril 10 MG TAB PO (07:50)
[2018-10-10] MEDS: Levothyroxine 50 MCG TAB PO (07:51)
[2018-10-10] MEDS: Calcium Carbonate 1.5 GM TAB PO (07:51)
[2018-10-10] MEDS: Folic Acid 1 MG TAB PO (07:52)
[2018-10-10] MEDS: Lactobacillus Acidophilus CAP 1 CAP PO (07:52)
[2018-10-10] MEDS: Thiamine 100 MG TAB PO (07:52)
[2018-10-10] MEDS: Multivitamin TAB 1 TAB PO (07:53)
[2018-10-10] MEDS: Aspirin 81 MG CHEW PO (07:54)
[2018-10-10] MEDS: Venlafaxine 150 MG CAPCR PO (07:54)
[2018-10-10] MEDS: Magnesium Oxide 400 MG TAB 800 MG PO (07:55)
[2018-10-10] MEDS: Nicotine 14 MG/24 HR PATCH TD (07:56)
[2018-10-10] MEDS: Normal Saline Flush 10 ML SYR IVP ×2 (09:41→11:30)
[2018-10-10] MEDS: MAGNESIUM SULFATE 4 GM/100 ML BAG IVPB (11:29)
[2018-10-10] MEDS: Normal Saline 500 ML 200 ML IV (11:30)
[2018-10-10] MEDS: Metoprolol 50 MG TAB PO (12:28)
--- NOTE | 2018-10-10 13:04 | PDOC.CMPRO ---
- If Service Date Differs Date of service: 10/10/18 Time of Service: 13:04 Care Management Progress Note S/O: Cece is sitting in bed having breakfast when this check writer salesperson visits this morning. Cece states that she is going to have her son bring in a few food items for her as she is having difficulty eating the hospital food as it is bland and I just can't eat it. Per Dr. Laughlin this morning Cece is not ready to transition to a swingbed level of care at this time, as she continues to monitor her labs. A: Cece is a 53 year old female admitted to [facility] 09/26/18 with ETOH withdrawal, SIRS, Hypokalemia and Hypomagnesemia. She continues IV antibiotic treatment for an MSSA bacteremia, E.Coli and Enterococcus UTI. P: Cece will most likely require a swingbed stay for IV antibiotics as she will need two more weeks of IV antibiotics at this time. Cece then will discharge home when medically ready per MD. Anticipate patient will discharge with no services and follow up with her PCP and oncology MD at [facility]. Cece will transport via private vehicle with her family at time of discharge. will continue to offer support to patient and care team regarding discharge planning and disposition.
[2018-10-10 14:19] LABS: HCT 23.2 % (36.0-46.0); HGB 7.7 g/dL (12.0-15.5)
[2018-10-10 14:34] LABS: Prothrombin Time 9.5 sec (9.3-10.8)
[2018-10-10] MEDS: Normal Saline 1,000 ML 1000 ML IV (14:54)
[2018-10-10] MEDS: PANTOPRAZOLE 80 MG in Normal Saline 100 ML 10 MG IV (14:54)
[2018-10-10] MEDS: Normal Saline 1,000 ML 100 ML IV (14:54)
--- NOTE | 2018-10-10 15:02 | W.PM.DS.N ---
Date of service: 10/10/18 Time of Service: 15:03 DS: Diagnosis Discharge Diagnosis (1) Upper GI bleeding: Status: Acute Asessment and Plan: Likely due to a bleeding esophageal mass with a question of aortoesophageal fistula (2) Anemia due to acute blood loss: Status: Acute Asessment and Plan: Latest H/H 7.7/23.2 (3) Squamous cell carcinoma of esophagus: Status: Acute Asessment and Plan: moderately differentiated, s/p EGD/EUS on 10/05/18 [place] [facility] - felt to be invasive into the adventitia, descending thoracic aorta, with local and possibly distant lymphadenopathy, awaiting Tumor Board/PET CT. (4) Sepsis: Status: Acute Asessment and Plan: MSSA bacteremia, on ancef via a midline - last day should be October 30 (1st negative blood cultures are from 10/02). Sepsis technically resolved. (5) Aspiration pneumonia: Status: Acute Asessment and Plan: In setting of dysphagia from esophageal mass, resolved (6) Alcohol withdrawal delirium: Status: Acute Asessment and Plan: Resolved (7) Abnormal EKG: Status: Acute (8) Dysphagia: Status: Chronic Asessment and Plan: due to esophageal mass (9) Hypomagnesemia: Status: Acute Asessment and Plan: on telemetry (10) Hypokalemia: Status: Resolved (11) PAD (peripheral artery disease): Status: Chronic (12) Breast cancer: Status: Chronic Asessment and Plan: ER/MS +, s/p lumpectomy, noncompliant with tamoxifen (13) Urinary retention: Status: Resolved Asessment and Plan: passed voiding trial (14) Normocytic anemia: Status: Acute Asessment and Plan: Acute on chronic, now symptomatic with hypotension; last Hgb 7.7, s/p transfusion of 1 unit of pRBC's on this admission (15) UTI (urinary tract infection): Status: Resolved Asessment and Plan: Due to E. Coli and E. faecalis, present on admission, completed therapy. (16) Malnutrition: Status: Acute Discharge Plan Disposition Patient Disposition: [facility] Condition: Critical Discharge Details Reason For Visit: ALCOHOL WITHDRAWAL,SIRS,HYPOKALEMIA,HYPOMAGNESEMIA Admit Date/Time: 09/26/18 17:52 Admit Provider: Natalie Laughlin Attending Provider: Natalie Laughlin Primary Care Provider: Rowena Mayo V Hospital Course Hospital Course: Ms Welch is a 53 year old female with PMHx of breast cancer (ER/MS +, s/p lumpectomy, XRT, noncompliant with tamoxifen), as well as PAD, hypertension, hypothyroidism, tobacco and alcohol abuse who was admitted to [facility] ICU on 09/26/18 for sepsis due to aspiration pneumonia and UTI (present on admission), alcohol withdrawal with delirium tremens, dysphagia for solids and electrolyte abnormalities. She was treated with empiric zosyn, aggressive IV fluids, and her alcohol withdrawal was controlled with prn benzodiazapines. Her blood cultures done on admission grew MSSA. They were repeated on 10/02 and were negative. The patient was transitioned from zosyn to ampicillin (09/29/18 - 10/03/18) and oxacillin (09/29/18 - 10/07/18) and then, eventually, to ancef (10/07/18 - present). Patient's last fever was recorded 10/09/18 (37.8 C), for which blood cultures were done from periphery and her midline on 10/09/18 - both show no growth to date. Her transthoracic echo did not show any evidence of endocarditis. Because of her immunosuppressed status, per [facility] ID recommendation, the patient is to complete 4 weeks of IV antibiotics from the 1st negative blood culture (end date 10/30/18). As far as dysphagia for solids and findings of possible esophageal mass, as well as her history of smoking and drinking, the patient underwent an EGD and endoscopic ultrasound at [facility] on 10/05/[address] Randle with return back to [facility]. This revealed an irregular esophageal mass with invasion into adventitia and the descending thoracic aorta. The paient was biopsied - pathology shows moderately differentiated squamous cell carcinoma. The case was referred to the tumor board. Meanwhile, the patient was initiated on an avdanced dysphagia diet and was tolerating it. She required transfusion of 1 unit of pRBC's on 10/07/18 without any evidence of active bleeding. However, on 10/10/18, the patient had a large black bowel movement which was hemoccult positive. The patient was foudn to be hypotension to 92/54 with a HR of 88. She denies any nausea or abdominal pain. She was initiated on protonix drip and received one dose of carafate. She was bolused 1 L of NS. Her H/H at 2 pm was 7.7/23.2, down from 7.9/24.0 this morning, and down from 7.9/24.0 yesterday. She is being transferred to [facility] Critical Care service Team [place] under the care of Dr Peters with Dr Clemens of GI consulting as there is a high suspicion that the source of bleeding is the esophageal mass and that it may have formed an oartoesophageal fistula which is a life-threatening condition. [facility] does not have either GI or thoracic surgery services available to help the patient if her bleeding continues/worsens. The patient is in agreement with transfer and has to be transferred via ground ambulance due to the fact that she cannot be flown due to weather. Her electrolytes were repleted and continue to require regular repletion to the day of discharge, with latest magnesium being 1.4. Home Meds and New Rx's Prescriptions: New acetaminophen [Acephen] 650 mg Suppository 650 mg MS Q6H PRN PRNQty: 0 RF: 0 pantoprazole [Protonix] 40 mg Recon Soln 80 mg IV INFUSION Qty: 0 RF: 0 cefazolin in 0.9% sod chloride 2 gram/50 mL piggyback 2 gm IV Q8H Qty: 1200 RF: 0 Continue fluticasone [Flonase Allergy Relief] 50 mcg/actuation [place],Suspension 2 spray INTRANASAL DAILY RF: 0 Discontinued metoprolol tartrate 100 mg Tablet 50 mg PO BID RF: 0 bupropion HCl 150 mg Tablet Sustained-Release 12 Hr 150 mg PO BID RF: 0 bupropion HCl [Wellbutrin SR] 150 mg Tablet Sustained-Release 12 Hr 150 mg PO BID RF: 0 venlafaxine [Effexor XR] 150 mg Capsule,Extended Release 24hr 150 mg PO DAILY RF: 0 aspirin 81 mg Tablet,Delayed Release (Dr/Ec) 81 mg PO DAILY RF: 0 levothyroxine 50 mcg Tablet 50 mcg PO DAILY RF: 0 lisinopril 10 mg Tablet 10 mg PO DAILY RF: 0 tamoxifen 20 mg Tablet 20 mg PO DAILY RF: 0 nicotine (polacrilex) [Nicorette] 4 mg Lozenge 4 mg BUCCAL Q2H PRNRF: 0 rosuvastatin [Crestor] 5 mg Tablet 5 mg PO HS RF: 0 Discharge Instructions Instructions: Gastrointestinal Bleeding (DC), Esophageal Cancer (DC) Activity:: bedrest Diet:: NPO Discharge Orders Discharge Orders: Discharge Order (Routine); Ordered 10/10/18 Ordered By: Natalie Laughlin Exam Narrative Exam Narrative: General: Middle-aged female, comfortable in bed HEENT: EOMI, MMM, mucosa pink Heart: RRR, +JAG, tachycardic on my exam Lungs: CTAB GI: abdomen soft, nontender, nondistended Extremities: no e/c/c BLE's. DS: Data Vitals/I&O Vitals and I&O: Vital Signs Temperature 36.9 C 10/10/18 13:57 Temperature Source Tympanic 10/10/18 13:57 Pulse 88 10/10/18 13:57 Pulse Rhythm Regular 10/10/18 07:40 Pulse 100 H 10/05/18 07:19 Respiratory Rate 18 10/10/18 13:57 Respiratory Effort Non-Labored 10/10/18 07:40 Respiratory Depth Normal 10/10/18 07:40 Respiratory Pattern Normal 10/10/18 07:40 Blood Pressure 92/54 L 10/10/18 13:57 Blood Pressure Mean 69 10/05/18 07:19 Blood Pressure Position Supine 09/29/18 19:00 Pulse Oximetry 99 10/10/18 13:57 Oxygen Delivery Method Room Air 10/10/18 13:57 Oxygen Flow Rate 0 10/10/18 13:57 Pain Level 0 10/10/18 13:57 Comment 10/08/18 08:00 Intake & Output 10/09/18 10/10/18 10/10/18 23:59 11:59 23:59 Intake Total 800 / 800 620 / 620 240 / 240 Balance 800 / 800 620 / 620 240 / 240 Weight 48.4 kg Intake: IV 550 / 550 70 / 70 Oral 250 / 250 550 / 550 240 / 240 Other: Comment Void x 1 in toilet Stool Occult Blood Positive Stool Size Small Stool Characteristics Black Voiding Methods Toilet Toilet Completed studies during hospitalization [Text1]: CT chest: CONCLUSION: 1. Findings suggesting multifocal pneumonia 2. Findings of probable esophageal mass or obstruction, endoscopic evaluation of the esophagus recommended. CXR 09/26/18: As noted on today's CT there are areas of patchy increased radiodensity in the left mid lung and left lung base, and possible minimal streaky changes in right lung base. The findings are consistent with multi-focal pneumonia, appropriate follow up studies requested. CT head 09/26/18: CONCLUSION: No evidence of acute intracranial process. Marked atrophy noted TTE 10/01/18: Impressions: No evidence of endocarditis, however, this cannot be ruled out by TTE, as sensitivity for this finding is < 50%. Summary: 1. Left ventricle: The cavity size was normal. Wall thickness was at the upper limits of normal. Systolic function was hyperdynamic. The estimated ejection fraction was 65-70%. There was no dynamic obstruction. Wall motion was normal; there were no regional wall motion abnormalities. 2. Aortic valve: Mild focal calcification involving the noncoronary cusp, seen on previous study.. Valve area (VTI): 2.8cm^2. Valve area (Vmax): 2.7cm^2. Valve area (Vmean): 2.7cm^2. 3. Mitral valve: There was mild regurgitation. 4. Right ventricle: The cavity size was normal. Wall thickness was normal. Systolic function was normal. 5. Pulmonic valve: Peak gradient (S): 4.5mm Hg. 6. Pulmonary arteries: Pulmonary systolic pressure was mildly increased. PA peak pressure: 42mm Hg (S). urine C&S 09/26/18: Org 1 = Escherichia coli Org 2 = Enterococcus Faecalis Collected: 09/26/18 18:50 Source: Urine Description: Reflex from Ua ANTIBIOTIC ORG 1 ORG 2 Ampicillin S Ampicillin/Sulbactam S Cefazolin S Ceftazidime S Ceftriaxone S Ciprofloxacin S Gentamicin S Imipenem S Levofloxacin S Nitrofurantoin S Piperacillin/Tazobactam S Tobramycin S Trimethoprim/Sulfamethoxazole S Blood cx x 2 09/26/18: MSSA Organism 1 STAPHYLOCOCCUS AUREUS Stap jason RESULT Ciprofloxacin S Gentamicin S Daptomycin S Erythromycin S Oxacillin S Vancomycin S Blood cx x 2 10/02/18: NGTD C. Diff 11/23/18: Negative Blood cx x 2 10/09/18: NGTD Urine C&S 10/09/18: Gram positive keena (UA negative). Labs on day of discharge: Labs from last 24 hours 10/10/18 10/10/18 10/10/18 22:00 14:10 14:10 WBC RBC Hgb Pending 7.7 L Hct Pending 23.2 L MCV MCH MCHC RDW Plt Count MPV Immature Gran % Neutrophils % Lymphocytes % Monocytes % Eosinophils % Basophils % Absolute Neutrophils Absolute Lymphocytes Absolute Monocytes Absolute Eosinophils Absolute Basophils PT Pending INR Pending Sodium Potassium Chloride Carbon Dioxide Anion Gap BUN Creatinine Estimated GFR/1.73 m2 Glucose Calcium Magnesium C-Reactive Protein 10/10/18 10/10/18 10/10/18 06:35 06:30 06:30 WBC 8.97 RBC 2.46 L Hgb 7.9 L Hct 24.0 L MCV 97.6 H MCH 32.1 MCHC 32.9 RDW 17.8 H Plt Count 434 H MPV 9.6 Immature Gran % 0.3 Neutrophils % 70.5 Lymphocytes % 19.3 Monocytes % 9.4 Eosinophils % 0.2 Basophils % 0.3 Absolute Neutrophils 6.32 Absolute Lymphocytes 1.73 Absolute Monocytes 0.84 H Absolute Eosinophils 0.02 Absolute Basophils 0.03 PT INR Sodium 130 L Potassium 4.4 Chloride 96 L Carbon Dioxide 24.0 Anion Gap 10.0 BUN 11 Creatinine 0.58 Estimated GFR/1.73 m2 >= 60.00 Glucose 100 Calcium 9.3 Magnesium 1.4 L C-Reactive Protein 0.65 H Preliminary micro results at discharge 10/09/18 11:55 Blood Culture - Preliminary Blood NO GROWTH 24 HOURS 10/09/18 11:45 Blood Culture - Preliminary Blood NO GROWTH 24 HOURS 10/09/18 13:56 Urine Culture - Preliminary Urine - Voided Gram Positive Keena PFSH Medical non-compliance (Chronic) Tobacco abuse (Chronic) Breast cancer (Chronic) PAD (peripheral artery disease) (Chronic) Dysphagia (Chronic) Alcohol abuse (Chronic) Hypertension (Chronic) Hypothyroidism (Chronic) Medical History Medical non-compliance (Chronic) Tobacco abuse (Chronic) Breast cancer (Chronic) PAD (peripheral artery disease) (Chronic) Dysphagia (Chronic) Alcohol abuse (Chronic) Hypertension (Chronic) Hypothyroidism (Chronic) Social History Smoking/Tobacco Use Status: Current every day alcohol intake: current alcohol intake frequency: 3 or more drinks per day Alcohol type: beer Surgical History H/O breast biopsy (Chronic) Hx of tubal ligation (Chronic) S/P breast lumpectomy (Chronic) Social History Smoking/Tobacco Use Status: Current every day alcohol intake: current alcohol intake frequency: 3 or more drinks per day Alcohol type: beer
--- NOTE | 2018-10-10 15:09 | DSE_ITS ---
Date of service: 10/10/18 Time of Service: 15:03 DS: Diagnosis Discharge Diagnosis (1) Upper GI bleeding: Status: Acute Asessment and Plan: Likely due to a bleeding esophageal mass with a question of aortoesophageal fistula (2) Anemia due to acute blood loss: Status: Acute Asessment and Plan: Latest H/H 7.7/23.2 (3) Squamous cell carcinoma of esophagus: Status: Acute Asessment and Plan: moderately differentiated, s/p EGD/EUS on 10/05/18 at [facility] - felt to be invasive into the adventitia, descending thoracic aorta, with local and possibly distant lymphadenopathy, awaiting Tumor Board/PET CT. (4) Sepsis: Status: Acute Asessment and Plan: MSSA bacteremia, on ancef via a midline - last day should be October 30 (1st negative blood cultures are from 10/02). Sepsis technically resolved. (5) Aspiration pneumonia: Status: Acute Asessment and Plan: In setting of dysphagia from esophageal mass, resolved (6) Alcohol withdrawal delirium: Status: Acute Asessment and Plan: Resolved (7) Abnormal EKG: Status: Acute (8) Dysphagia: Status: Chronic Asessment and Plan: due to esophageal mass (9) Hypomagnesemia: Status: Acute Asessment and Plan: on telemetry (10) Hypokalemia: Status: Resolved (11) PAD (peripheral artery disease): Status: Chronic (12) Breast cancer: Status: Chronic Asessment and Plan: ER/WA +, s/p lumpectomy, noncompliant with tamoxifen (13) Urinary retention: Status: Resolved Asessment and Plan: passed voiding trial (14) Normocytic anemia: Status: Acute Asessment and Plan: Acute on chronic, now symptomatic with hypotension; last Hgb 7.7, s/p transfusion of 1 unit of pRBC's on this admission (15) UTI (urinary tract infection): Status: Resolved Asessment and Plan: Due to E. Coli and E. faecalis, present on admission, completed therapy. (16) Malnutrition: Status: Acute Discharge Plan Disposition [facility] Disposition[facility] Condition: Critical Discharge Details Reason For Visit: ALCOHOL WITHDRAWAL,SIRS,HYPOKALEMIA,HYPOMAGNESEMIA Admit Date/Time: 09/26/18 17:52 Admit Provider: Natalie Laughlin Attending Provider: Natalie Laughlin Primary Care Provider: Rowena Mayo V Hospital Course Hospital Course: Ms Welch is a 53 year old female with PMHx of breast cancer (ER/WA +, s/p lumpectomy, XRT, noncompliant with tamoxifen), as well as PAD, hypertension , hypothyroidism, tobacco and alcohol abuse who was admitted to [facility] ICU on for sepsis due to aspiration pneumonia and UTI (present on admission), alcohol withdrawal with delirium tremens, dysphagia for solids and electrolyte abnormalities. She was treated with empiric zosyn, aggressive IV fluids, and her alcohol withdrawal was controlled with prn benzodiazapines. Her blood cultures done on admission grew MSSA. They were repeated on 10/02 and were negative. The patient was transitioned from zosyn to ampicillin (09/29/18 - ) and oxacillin (09/29/18 - 10/07/18) and then, eventually, to ancef (10/07 - present). Patient's last fever was recorded 10/09/18 (37.8 C), for which blood cultures were done from periphery and her midline on 10/09/18 - both show no growth to date. Her transthoracic echo did not show any evidence of endocarditis. Because of her immunosuppressed status, per [facility] ID recommendation , the patient is to complete 4 weeks of IV antibiotics from the 1st negative blood culture (end date 10/30/18). As far as dysphagia for solids and findings of possible esophageal mass, as well as her history of smoking and drinking, the patient underwent an EGD and endoscopic ultrasound at [facility] on 10/05/[address] Randle with return back to [facility]. This revealed an irregular esophageal mass with invasion into adventitia and the descending thoracic aorta. The paient was biopsied - pathology shows moderately differentiated squamous cell carcinoma. The case was referred to the tumor board. Meanwhile, the patient was initiated on an avdanced dysphagia diet and was tolerating it. She required transfusion of 1 unit of pRBC's on 10/07/18 without any evidence of active bleeding. However, on 10/10/18, the patient had a large black bowel movement which was hemoccult positive. The patient was foudn to be hypotension to 92/54 with a HR of 88. She denies any nausea or abdominal pain. She was initiated on protonix drip and received one dose of carafate. She was bolused 1 L of NS. Her H/H at 2 pm was 7.7/23.2, down from 7.9/24.0 this morning, and down from 7.9/24.0 yesterday. She is being transferred to [facility] Critical Care service Team [place] under the care of Dr Peters with Dr Clemens of GI consulting as there is a high suspicion that the source of bleeding is the esophageal mass and that it may have formed an oartoesophageal fistula which is a life-threatening condition. [facility] does not have either GI or thoracic surgery services available to help the patient if her bleeding continues/worsens. The patient is in agreement with transfer and has to be transferred via ground ambulance due to the fact that she cannot be flown due to weather. Her electrolytes were repleted and continue to require regular repletion to the day of discharge, with latest magnesium being 1.4. Home Meds and New Rx's Prescriptions: New acetaminophen [Acephen] 650 mg Suppository 650 mg [place] Q6H PRN PRNQty: 0 RF: 0 pantoprazole [Protonix] 40 mg Recon Soln 80 mg IV INFUSION Qty: 0 RF: 0 cefazolin in 0.9% sod chloride 2 gram/50 mL piggyback 2 gm IV Q8H Qty: 1200 RF: 0 Continue fluticasone [Flonase Allergy Relief] 50 mcg/actuation [place],Suspension 2 spray INTRANASAL DAILY RF: 0 Discontinued metoprolol tartrate 100 mg Tablet 50 mg PO BID RF: 0 bupropion HCl 150 mg Tablet Sustained-Release 12 Hr 150 mg PO BID RF: 0 bupropion HCl [Wellbutrin SR] 150 mg Tablet Sustained-Release 12 Hr 150 mg PO BID RF: 0 venlafaxine [Effexor XR] 150 mg Capsule,Extended Release 24hr 150 mg PO DAILY RF: 0 aspirin 81 mg Tablet,Delayed Release (Dr/Ec) 81 mg PO DAILY RF: 0 levothyroxine 50 mcg Tablet 50 mcg PO DAILY RF: 0 lisinopril 10 mg Tablet 10 mg PO DAILY RF: 0 tamoxifen 20 mg Tablet 20 mg PO DAILY RF: 0 nicotine (polacrilex) [Nicorette] 4 mg Lozenge 4 mg BUCCAL Q2H PRNRF: 0 rosuvastatin [Crestor] 5 mg Tablet 5 mg PO HS RF: 0 Discharge Instructions Instructions: Gastrointestinal Bleeding (DC), Esophageal Cancer (DC) Activity:: bedrest Diet:: NPO Discharge Orders Discharge Orders: Discharge Order (Routine); Ordered 10/10/18 Ordered By: Natalie Laughlin Exam Narrative Exam Narrative: General: Middle-aged female, comfortable in bed HEENT: EOMI, MMM, mucosa pink Heart: RRR, +JAG, tachycardic on my exam Lungs: CTAB GI: abdomen soft, nontender, nondistended Extremities: no e/c/c BLE's. DS: Data Vitals/I&O Vitals and I&O: Vital Signs Temperature 36.9 C 10/10/18 13:57 Temperature Source Tympanic 10/10/18 13:57 Pulse 88 10/10/18 13:57 Pulse Rhythm Regular 10/10/18 07:40 Pulse 100 H 10/05/18 07:19 Respiratory Rate 18 10/10/18 13:57 Respiratory Effort Non-Labored 10/10/18 07:40 Respiratory Depth Normal 10/10/18 07:40 Respiratory Pattern Normal 10/10/18 07:40 Blood Pressure 92/54 L 10/10/18 13:57 Blood Pressure Mean 69 10/05/18 07:19 Blood Pressure Position Supine 09/29/18 19:00 Pulse Oximetry 99 10/10/18 13:57 Oxygen Delivery Method Room Air 10/10/18 13:57 Oxygen Flow Rate 0 10/10/18 13:57 Pain Level 0 10/10/18 13:57 Comment 10/08/18 08:00 Intake & Output 10/09/18 10/10/18 10/10/18 23:59 11:59 23:59 Intake Total 800 / 800 620 / 620 240 / 240 Balance 800 / 800 620 / 620 240 / 240 Weight 48.4 kg Intake: IV 550 / 550 70 / 70 Oral 250 / 250 550 / 550 240 / 240 Other: Comment Void x 1 in toilet Stool Occult Blood Positive Stool Size Small Stool Characteristics Black Voiding Methods Toilet Toilet Completed studies during hospitalization [Text1]: CT chest: CONCLUSION: 1. Findings suggesting multifocal pneumonia 2. Findings of probable esophageal mass or obstruction, endoscopic evaluation of the esophagus recommended. CXR 09/26/18: As noted on today's CT there are areas of patchy increased radiodensity in the left mid lung and left lung base, and possible minimal streaky changes in right lung base. The findings are consistent with multi- focal pneumonia, appropriate follow up studies requested. CT head 09/26/18: CONCLUSION: No evidence of acute intracranial process. Marked atrophy noted TTE 10/01/18: Impressions: No evidence of endocarditis, however, this cannot be ruled out by TTE, as sensitivity for this finding is < 50%. Summary: 1. Left ventricle: The cavity size was normal. Wall thickness was at the upper limits of normal. Systolic function was hyperdynamic. The estimated ejection fraction was 65-70%. There was no dynamic obstruction. Wall motion was normal; there were no regional wall motion abnormalities. 2. Aortic valve: Mild focal calcification involving the noncoronary cusp, seen on previous study.. Valve area (VTI): 2.8cm^2. Valve area (Vmax): 2.7cm^2. Valve area (Vmean): 2.7cm^2. 3. Mitral valve: There was mild regurgitation. 4. Right ventricle: The cavity size was normal. Wall thickness was normal. Systolic function was normal. 5. Pulmonic valve: Peak gradient (S): 4.5mm Hg. 6. Pulmonary arteries: Pulmonary systolic pressure was mildly increased. PA peak pressure: 42mm Hg (S). urine C&S 09/26/18: Org 1 = Escherichia coli Org 2 = Enterococcus Faecalis Collected: 09/26/18 18:50 Source: Urine Description: Reflex from Ua ANTIBIOTIC ORG 1 ORG 2 Ampicillin S Ampicillin/Sulbactam S Cefazolin S Ceftazidime S Ceftriaxone S Ciprofloxacin S Gentamicin S Imipenem S Levofloxacin S Nitrofurantoin S Piperacillin/Tazobactam S Tobramycin S Trimethoprim/Sulfamethoxazole S Blood cx x 2 09/26/18: MSSA Organism 1 STAPHYLOCOCCUS AUREUS Stap jason RESULT Ciprofloxacin S Gentamicin S Daptomycin S Erythromycin S Oxacillin S Vancomycin S Blood cx x 2 10/02/18: NGTD C. Diff 11/23/18: Negative Blood cx x 2 10/09/18: NGTD Urine C&S 10/09/18: Gram positive keena (UA negative). Labs on day of discharge: Labs from last 24 hours 10/10/18 10/10/18 10/10/18 22:00 14:10 14:10 WBC RBC Hgb Pending 7.7 L Hct Pending 23.2 L MCV MCH MCHC RDW Plt Count MPV Immature Gran % Neutrophils % Lymphocytes % Monocytes % Eosinophils % Basophils % Absolute Neutrophils Absolute Lymphocytes Absolute Monocytes Absolute Eosinophils Absolute Basophils PT Pending INR Pending Sodium Potassium Chloride Carbon Dioxide Anion Gap BUN Creatinine Estimated GFR/1.73 m2 Glucose Calcium Magnesium C-Reactive Protein 10/10/18 10/10/18 10/10/18 06:35 06:30 06:30 WBC 8.97 RBC 2.46 L Hgb 7.9 L Hct 24.0 L MCV 97.6 H MCH 32.1 MCHC 32.9 RDW 17.8 H Plt Count 434 H MPV 9.6 Immature Gran % 0.3 Neutrophils % 70.5 Lymphocytes % 19.3 Monocytes % 9.4 Eosinophils % 0.2 Basophils % 0.3 Absolute Neutrophils 6.32 Absolute Lymphocytes 1.73 Absolute Monocytes 0.84 H Absolute Eosinophils 0.02 Absolute Basophils 0.03 PT INR Sodium 130 L Potassium 4.4 Chloride 96 L Carbon Dioxide 24.0 Anion Gap 10.0 BUN 11 Creatinine 0.58 Estimated GFR/1.73 m2 >= 60.00 Glucose 100 Calcium 9.3 Magnesium 1.4 L C-Reactive Protein 0.65 H Preliminary micro results at discharge 10/09/18 11:55 Blood Culture - Preliminary Blood NO GROWTH 24 HOURS 10/09/18 11:45 Blood Culture - Preliminary Blood NO GROWTH 24 HOURS 10/09/18 13:56 Urine Culture - Preliminary Urine - Voided Gram Positive Keena PFSH Medical non-compliance (Chronic) Tobacco abuse (Chronic) Breast cancer (Chronic) PAD (peripheral artery disease) (Chronic) Dysphagia (Chronic) Alcohol abuse (Chronic) Hypertension (Chronic) Hypothyroidism (Chronic) Medical History Medical non-compliance (Chronic) Tobacco abuse (Chronic) Breast cancer (Chronic) PAD (peripheral artery disease) (Chronic) Dysphagia (Chronic) Alcohol abuse (Chronic) Hypertension (Chronic) Hypothyroidism (Chronic) Social History Smoking/Tobacco Use Status: Current every day alcohol intake: current alcohol intake frequency: 3 or more drinks per day Alcohol type: beer Surgical History H/O breast biopsy (Chronic) Hx of tubal ligation (Chronic) S/P breast lumpectomy (Chronic) Social History Smoking/Tobacco Use Status: Current every day alcohol intake: current alcohol intake frequency: 3 or more drinks per day Alcohol type: beer
[2018-10-10] MEDS: Sucralfate 1 GM TAB PO (15:17)
--- NOTE | 2018-10-10 15:43 | NUR.NOTE ---
Nursing Note: Patient was transferred to ICU room 222 and nurse Power Byers @ [phone].
== END 2018-10-10 16:15 | disposition short-term general hospital (02) | DRG 871 ==
LOC: ER 17:59 → ICU 20:12 → MS 10-05 13:24 → ICU 10-10 14:49
PROVIDERS: Family Medicine; Internal Medicine; Surgery; Admitting Provider Internal Medicine; Emergency Provider Physician Assistant; PCP Family Medicine; Visit Provider Internal Medicine
DX: A41.01 Sepsis due to Methicillin susceptible Staphylococcus aureus (principal); J69.0 Pneumonitis due to inhalation of food and vomit; F10.231 Alcohol dependence with withdrawal delirium; K92.2 Gastrointestinal hemorrhage, unspecified; D62 Acute posthemorrhagic anemia; C15.9 Malignant neoplasm of esophagus, unspecified; C77.9 Secondary and unspecified malignant neoplasm of lymph node, unspecified; N39.0 Urinary tract infection, site not specified; I77.2 Rupture of artery; E46 Unspecified protein-calorie malnutrition; I47.1 Supraventricular tachycardia; E87.1 Hypo-osmolality and hyponatremia; R65.20 Severe sepsis without septic shock; K22.8 Other specified diseases of esophagus; B96.20 Unspecified Escherichia coli [E. coli] as the cause of diseases classified elsewhere; B95.2 Enterococcus as the cause of diseases classified elsewhere; R13.11 Dysphagia, oral phase; E83.42 Hypomagnesemia; E87.6 Hypokalemia; E83.51 Hypocalcemia; Z85.3 Personal history of malignant neoplasm of breast; Z91.14 Patient's other noncompliance with medication regimen; F17.210 Nicotine dependence, cigarettes, uncomplicated; I73.9 Peripheral vascular disease, unspecified; R33.9 Retention of urine, unspecified; D64.9 Anemia, unspecified; R94.31 Abnormal electrocardiogram [ECG] [EKG]; R01.1 Cardiac murmur, unspecified; E87.8 Other disorders of electrolyte and fluid balance, not elsewhere classified; E86.0 Dehydration; I34.0 Nonrheumatic mitral (valve) insufficiency; I10 Essential (primary) hypertension; E03.9 Hypothyroidism, unspecified
CPT/HCPCS: 36410; 36415; 36430; 36569; 43237; 51702; 71275; 80048; 80053; 80061; 80076; 80307; 81025; 82306; 83721; 86850; 86900; 86901; 86920; 87040; 87077; 92610; 93005; 96361; 96365; 96366; 96368; 96375; 96376; 99223; 99231; 99232; 99233; 99252; 99285; 99291; J1650; 70450; 71045; 80202; 80320; 81003; 81015; 82040; 82607; 82728; 82746; 83540; 83550; 83605; 83735; 84134; 84295; 84443; 84484; 85014; 85018; 85025; 85610; 85730; 86140; 87086; 87186; 87324; 92507; 93010; 93306; A0425; A0429; J0690; J2060; J2543; J2700; J3475; J3480; J3490; P9016

== ENCOUNTER 2018-10-18 16:01 | Outpatient (REF) | payer MEDICAID, SELFPAY ==
[2018-10-18 17:55] LABS: Abs Immature Grans 0.02 k/cumm (0.0-0.09); Absolute Basophil Count 0.03 k/cumm (0.0-0.2); Absolute Eosinophil Count 0.09 k/cumm (0.0-0.7); Absolute Lymphocyte Count 1.56 k/cumm (1.2-3.4); Absolute Monocyte Count 0.74 k/cumm (0.11-0.7); Absolute Neutrophil Count 5.08 k/cumm (1.2-6.7); Basophils % 0.4; Eosinophils % 1.2; HCT 27.8 % (36.0-46.0); HGB 8.8 g/dL (12.0-15.5); Immature Grans % 0.3; Lymphocytes % 20.7; Mean Corp. HGB Concentration 31.7 g/dL (32.0-36.0); Mean Corpuscular Hemoglobin 30.2 pg (27.0-33.0); Mean Corpuscular Volume 95.5 fL (80-95); Mean Platelet Volume 8.9 fL (8.0-11.0); Monocytes % 9.8; Neutrophils % 67.6; Platelet Count 508 x1000/uL (130-400); RBC 2.91 m/cumm (4.00-5.20); RBC Distribution Width 18.3 % (11.7-14.6); White Blood Cell Count 7.52 k/cumm (4.4-10.8)
[2018-10-18 18:18] LABS: Anisocytosis 2+; Diff Comment RBC Morph Reviewed; Macrocytosis 1+
[2018-10-18 18:39] LABS: ALT 9 U/L (12-78); AST 16 U/L (15-37); Albumin 1.7 g/dL (3.4-5.0); Alkaline Phosphatase 77 U/L (46-116); Anion Gap 11.6 mmol/L (3-11); BUN 10 mg/dL (7-18); Bilirubin, Total 0.5 mg/dL (0.2-1.0); C-Reactive Protein 3.24 mg/dL (0.0-0.3); CO2 26.4 mmol/L (21.0-32.0); CREATININE 0.83 mg/dL (0.55-1.02); Calcium 8.9 mg/dL (8.5-10.1); Chloride 102 mmol/L (98-107); Glucose 104 mg/dL (70-100); Sodium 140 mmol/L (136-145); Total Protein 5.6 g/dL (6.4-8.2)
[2018-10-18 18:55] LABS: Potassium 2.9 mmol/L (3.5-5.1)
== END 2018-10-18 16:21 ==
LOC: LBN 16:01
PROVIDERS: PCP Family Medicine; Visit Provider Internal Medicine
DX: R78.81 Bacteremia (principal); A49.01 Methicillin susceptible Staphylococcus aureus infection, unspecified site; C15.4 Malignant neoplasm of middle third of esophagus; K29.71 Gastritis, unspecified, with bleeding; D50.0 Iron deficiency anemia secondary to blood loss (chronic); J18.9 Pneumonia, unspecified organism
CPT/HCPCS: 80053; 85025; 86140

== ENCOUNTER 2018-10-25 16:26 | Outpatient (REF) | payer MEDICAID, SELFPAY ==
[2018-10-25 17:33] LABS: Abs Immature Grans 0.02 k/cumm (0.0-0.09); Absolute Basophil Count 0.03 k/cumm (0.0-0.2); Absolute Eosinophil Count 0.12 k/cumm (0.0-0.7); Absolute Lymphocyte Count 1.86 k/cumm (1.2-3.4); Absolute Monocyte Count 0.87 k/cumm (0.11-0.7); Absolute Neutrophil Count 7.84 k/cumm (1.2-6.7); Basophils % 0.3; Eosinophils % 1.1; HCT 26.6 % (36.0-46.0); HGB 9.1 g/dL (12.0-15.5); Immature Grans % 0.2; Lymphocytes % 17.3; Mean Corp. HGB Concentration 34.2 g/dL (32.0-36.0); Mean Corpuscular Hemoglobin 31.4 pg (27.0-33.0); Mean Corpuscular Volume 91.7 fL (80-95); Monocytes % 8.1; Platelet Count 527 x1000/uL (130-400); RBC Distribution Width 17.8 % (11.7-14.6); White Blood Cell Count 10.74 k/cumm (4.4-10.8)
[2018-10-25 17:43] LABS: ALT 8 U/L (12-78); AST 18 U/L (15-37); Albumin 1.6 g/dL (3.4-5.0); Alkaline Phosphatase 102 U/L (46-116); BUN 8 mg/dL (7-18); Bilirubin, Total 0.6 mg/dL (0.2-1.0); C-Reactive Protein 6.18 mg/dL (0.0-0.3); CREATININE 0.63 mg/dL (0.55-1.02); Calcium 8.5 mg/dL (8.5-10.1); Chloride 98 mmol/L (98-107); Glucose 109 mg/dL (70-100); Sodium 137 mmol/L (136-145)
[2018-10-25 17:55] LABS: Diff Comment Agrees w/ Instrument; Macrocytosis 1+; Polychromasia Present
== END 2018-10-25 16:46 ==
LOC: NCHCN 16:26
PROVIDERS: PCP Family Medicine; Visit Provider Family Medicine
DX: R78.81 Bacteremia (principal); A49.01 Methicillin susceptible Staphylococcus aureus infection, unspecified site
CPT/HCPCS: 80053; 85025; 86140

== ENCOUNTER 2018-10-25 20:23 | Inpatient (IN) | payer MEDICAID, SELFPAY ==
[2018-10-25] VITALS (22 sets, daily range): BP systolic 136; BP diastolic 97; PULSE 86–98; RESP 8–24; TEMP 36.6; O2SAT 97–100
[2018-10-25 21:13] LABS: Abs Immature Grans 0.03 k/cumm (0.0-0.09); Absolute Basophil Count 0.03 k/cumm (0.0-0.2); Absolute Eosinophil Count 0.13 k/cumm (0.0-0.7); Absolute Monocyte Count 0.79 k/cumm (0.11-0.7); Basophils % 0.3; Eosinophils % 1.1; HCT 31.1 % (36.0-46.0); HGB 10.6 g/dL (12.0-15.5); Immature Grans % 0.3; Lymphocytes % 17.5; Mean Corp. HGB Concentration 34.1 g/dL (32.0-36.0); Mean Corpuscular Hemoglobin 31.1 pg (27.0-33.0); Mean Corpuscular Volume 91.2 fL (80-95); Mean Platelet Volume 8.5 fL (8.0-11.0); Monocytes % 6.8; Platelet Count 502 x1000/uL (130-400); RBC 3.41 m/cumm (4.00-5.20); White Blood Cell Count 11.63 k/cumm (4.4-10.8)
[2018-10-25 21:14] LABS: Absolute Lymphocyte Count 2.04 k/cumm (1.2-3.4); Absolute Neutrophil Count 8.61 k/cumm (1.2-6.7)
[2018-10-25 21:31] LABS: ALT 8 U/L (12-78); AST 16 U/L (15-37); Albumin 1.7 g/dL (3.4-5.0); Alkaline Phosphatase 102 U/L (46-116); Anion Gap 11.1 mmol/L (3-11); BUN 7 mg/dL (7-18); Bilirubin, Total 0.9 mg/dL (0.2-1.0); CO2 28.9 mmol/L (21.0-32.0); CREATININE 0.74 mg/dL (0.55-1.02); Chloride 98 mmol/L (98-107); Glucose 103 mg/dL (70-100); Sodium 138 mmol/L (136-145); Total Protein 7.1 g/dL (6.4-8.2)
[2018-10-25 21:37] LABS: Troponin I < 0.02 ng/mL (0.00-0.06)
[2018-10-25 21:39] LABS: Potassium 2.1 mmol/L (3.5-5.1)
[2018-10-25] MEDS: Potassium Chloride 20 MEQ TABCR 40 MEQ PO (21:46)
[2018-10-25] MEDS: POTASSIUM CHLORIDE 20 MEQ/100 ML BAG 50 MEQ IVPB ×2 (21:47→23:40)
--- NOTE | 2018-10-25 21:58 | W.ED.GENAD ---
Discharge Plan Disposition Patient Disposition: [facility] INPATIENT Condition: Stable Discharge Details Chief Complaint: GenMedical Clinical Impression: Hypokalemia, Hypomagnesemia Reason For Visit: HYPOKALEMIA AND HEPOMAGNESEMIA WITH ESOPHAGEAL CAN Admit Date/Time: 10/26/18 08:35 Admit Provider: Zach Palacios Attending Provider: Zach Palacios Primary Care Provider: Rowena Mayo V ED Provider: Komal Chambers Discharge Data Discharge Date/Time-TO BE ENTERED AT DEPARTURE: 10/26/18 00:58 Medical Decision Making 53-year-old female with long-standing history of tobacco and alcohol abuse recently diagnosed with a squamous cell esophageal carcinoma last month at [facility] who is currently receiving IV antibiotics through a PICC line for MSSA bacteremia who presents with hypokalemia noted on routine labs done once weekly per home health. Potassium 2 on labs in the computer. She has chronic vomiting and diarrhea and states this is no worse than usual. She denies fever, chest pain, shortness breath, abdominal pain. Heart rate mildly elevated, remainder vitals within normal limits. Afebrile. EKG notes a rate of 87, sinus, less than [address] depression noted in V4 and V5 which is been seen in previous EKG. No acute ST elevation. QTc 438. QRS 116. We will repeat labs. Repeat labs note a potassium of 2.1. Magnesium 1. Will replete with IV and p.o. potassium as well as IV magnesium and plan for admission for electrolyte repletion/telemetry monitoring. 2320 -- d/w hospitalist - accepts pt for admission. Discussed that as pt can only take in soft foods but has chronic vomiting, may be another source for nutrition such as peg tube. HPI General Mode of arrival: EMS. Date/Time Provider Initiated Documentation: 10/25/18 20:27. Limitations to Documentation: no limitations. Information obtained by: patient. HPI Narrative: Patient is a 53-year-old female with a history of alcohol abuse, tobacco abuse, and recently diagnosed esophageal cancer who presents for hypokalemia per routine home health labs today. Patient was admitted here last month on 09/26 for sepsis due to pneumonia and UTI and alcohol withdrawal hallucinosis and was found to have anemia likely due to bleeding from her esophageal mass and dysphagia to solids and subsequently had an EGD at [facility] which noted the esophageal mass. She was transferred from here to [facility] due to concern for aortoesophageal fistula. Biopsy of her esophageal mass noted squamous cell carcinoma. She was continued on IV antibiotics through a PICC line for MSSA bacteremia and is awaiting outpatient follow-up per the tumor board for treatment of her esophageal mass. She states she is mainly eating soft foods, yogurt, ice cream, dairy. She states she chronically has vomiting and diarrhea but states this is no worse than usual. She denies any recent fever, chest pain, shortness of breath or abdominal pain. She states she was told recently that she may have had low potassium last week, and was called in 2 tabs of potassium to take at home. Related Data Home Medications Medication Instructions Recorded Confirmed fluticasone [Flonase Allergy 2 spray INTRANASAL DAILY PRN 10/01/18 10/25/18 Relief] acetaminophen [Acephen] 650 mg RI Q6H PRN PRN #0 ea 10/10/18 10/25/18 bupropion HCl 150 mg PO BID 10/25/18 10/26/18 folic acid 1 mg PO DAILY 10/25/18 10/25/18 levothyroxine 50 mcg PO DAILY 10/25/18 10/25/18 multivitamin 1 tab PO DAILY 10/25/18 10/25/18 nafcillin 2 g IV Q4H 10/25/18 10/25/18 omeprazole 40 mg PO DAILY 10/25/18 10/25/18 rosuvastatin 5 mg PO DAILY 10/25/18 10/25/18 tamoxifen 20 mg PO DAILY 10/25/18 10/25/18 thiamine HCl (vitamin B1) [Vitamin 100 mg PO DAILY 10/25/18 10/25/18 B-1] venlafaxine 150 mg PO DAILY 10/25/18 10/25/18 Previous Rx's Medication Instructions Recorded acetaminophen [Acephen] 650 mg RI Q6H PRN PRN #0 ea 10/10/18 Allergies Allergy/AdvReac Type Severity Reaction Status Date / Time No Known Allergies Allergy Unverified 10/25/18 20:41 General Stated Complaint: GenMedical DELMI: 3 Review of Systems Review of Systems All systems reviewed & are unremarkable except as noted in HPI and below Constitutional Reports as per HPI, Denies chills and Denies fever(s) Eyes Denies blurry vision ENT Denies dizziness, Denies sore throat and Denies throat swelling Cardiovascular Denies chest pain and Denies dyspnea Respiratory Denies dyspnea Gastrointestinal Denies abdominal pain, Reports diarrhea and Reports vomiting Genitourinary Denies hematuria and Denies dysuria Musculoskeletal Denies back pain and Denies numbness Integumentary/Breasts Denies lesions and Denies rash Neurologic Denies dizziness and Denies numbness Allergic/Immunologic Denies throat swelling PFSH Medical History Depression (Chronic) Cachexia (Acute) Bacteremia (Acute) Squamous cell carcinoma of esophagus (Acute) Malnutrition (Chronic) Hypokalemia (Acute) Hypomagnesemia (Acute) Medical non-compliance (Chronic) Tobacco abuse (Chronic) Breast cancer (Chronic) PAD (peripheral artery disease) (Chronic) Dysphagia (Chronic) Alcohol abuse (Chronic) Hypertension (Chronic) Hypothyroidism (Chronic) Surgical History H/O breast biopsy (Chronic) Hx of tubal ligation (Chronic) S/P breast lumpectomy (Chronic) Social History Smoking/Tobacco Use Status: Current every day alcohol intake: current alcohol intake frequency: 3 or more drinks per day Alcohol type: beer Exam Const General: cooperative, healthy appearing and no acute distress HENIN Head: normal to inspection Face and sinus: normal facial exam Eyes General: appearance normal, both eyes and all related structures EOM: EOM intact bilaterally Neck Neck: normal visual inspection and No submandibular swelling Lymphatic: no lymphadenopathy noted Chest Chest: normal inspection of the chest and no tenderness Resp Effort & Inspection: normal respiratory effort and able to speak in complete sentences Auscultation: clear to auscultation bilaterally Cardio Rate: regular rate Rhythm: regular rhythm GI Inspection: normal to inspection Palpation: soft, not firm, not rigid and nontender Auscultation: normal bowel sounds Skin General skin exam: no rashes or lesions noted Neuro General: alert, awake and oriented x3 Cognition: normal cognition Speech: speech normal Motor: muscle tone normal throughout Sensory Exam: no sensory deficits noted Extrem General: normal to inspection, full ROM, normal capillary refill, no calf tenderness bilaterally, no edema and other (PICC line in left upper inner arm. No evidence of infection. ) Psych Appearance: grossly normal Mental Status: mental status grossly normal Speech and Movement: speech and movement normal Affect: normal affect Course Vital Signs Temperature 97.8 F 10/25/18 20:27 Pulse 91 H 10/25/18 20:27 Respiratory Rate 18 10/25/18 20:27 Blood Pressure 136/97 H 10/25/18 20:27 Pulse Oximetry 100 10/25/18 20:27 Temperature 97.8 F 10/25/18 20:27 Temperature Source Skin 10/25/18 20:27 Pulse 91 H 10/25/18 20:27 Respiratory Rate 18 10/25/18 20:27 Respiratory Effort Non-Labored 10/25/18 20:33 Blood Pressure 136/97 H 10/25/18 20:27 Blood Pressure Position Supine 10/25/18 20:27 Pulse Oximetry 100 10/25/18 20:27 Oxygen Delivery Method Room Air 10/25/18 20:27 Oxygen Flow Rate 0 10/25/18 20:27 Lab/Test Results Lab/Test Results: Laboratory Tests Range/Units 10/25/18 10/25/18 20:55 20:55 WBC (4.4-10.8) k/cumm 11.63 H RBC (4.00-5.20) m/cumm 3.41 L Hgb (12.0-15.5) g/dL 10.6 L Hct (36.0-46.0) % 31.1 L MCV (80-95) fL 91.2 MCH (27.0-33.0) pg 31.1 MCHC (32.0-36.0) g/dL 34.1 RDW (11.7-14.6) % 18.0 H Plt Count (130-400) x1000/uL 502 H MPV (8.0-11.0) fL 8.5 Immature Gran % 0.3 Neutrophils % 74.0 Lymphocytes % 17.5 Monocytes % 6.8 Eosinophils % 1.1 Basophils % 0.3 Absolute Neutrophils (1.2-6.7) k/cumm 8.61 H Absolute Lymphocytes (1.2-3.4) k/cumm 2.04 Absolute Monocytes (0.11-0.7) k/cumm 0.79 H Absolute Eosinophils (0.0-0.7) k/cumm 0.13 Absolute Basophils (0.0-0.2) k/cumm 0.03 Sodium (136-145) mmol/L 138 Potassium (3.5-5.1) mmol/L 2.1 L* Chloride (98-107) mmol/L 98 Carbon Dioxide (21.0-32.0) mmol/L 28.9 Anion Gap (3-11) mmol/L 11.1 H BUN (7-18) mg/dL 7 Creatinine (0.55-1.02) mg/dL 0.74 Estimated GFR/1.73 m2 (mL/min/1.73m2) >= 60.00 Glucose (70-100) mg/dL 103 H Calcium (8.5-10.1) mg/dL 9.0 Magnesium (1.8-2.4) mg/dL 1.0 L Total Bilirubin (0.2-1.0) mg/dL 0.9 AST (15-37) U/L 16 ALT (12-78) U/L 8 L Alkaline Phosphatase (46-116) U/L 102 Troponin I (0.00-0.06) ng/mL < 0.02 Total Protein (6.4-8.2) g/dL 7.1 Albumin (3.4-5.0) g/dL 1.7 L
--- NOTE | 2018-10-25 22:02 | ED.GENADUL_ITS ---
Discharge Plan Disposition Patient Disposition: [facility] INPATIENT Condition: Stable Discharge Details Chief Complaint: GenMedical Clinical Impression: Hypokalemia, Hypomagnesemia Reason For Visit: HYPOKALEMIA AND HEPOMAGNESEMIA WITH ESOPHAGEAL CAN Admit Date/Time: 10/26/18 08:35 Admit Provider: Zach Palacios Attending Provider: Zach Palacios Primary Care Provider: Rowena Mayo V ED Provider: Komal Chambers Discharge Data Discharge Date/Time-TO BE ENTERED AT DEPARTURE: 10/26/18 00:58 Medical Decision Making 53-year-old female with long-standing history of tobacco and alcohol abuse 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 Potassium 2 on labs in the computer. She has chronic vomiting and diarrhea and states this is no worse than usual. She denies fever, chest pain, shortness breath, abdominal pain. Heart rate mildly elevated, remainder vitals within normal limits. Afebrile. EKG notes a rate of 87, sinus, less than [address] depression noted in V4 and V5 which is been seen in previous EKG. No acute ST elevation. QTc 438. QRS 116. We will repeat labs. Repeat labs note a potassium of 2.1. Magnesium 1. Will replete with IV and p.o. potassium as well as IV magnesium and plan for admission for electrolyte repletion/telemetry monitoring. 2320 -- d/w hospitalist - accepts pt for admission. Discussed that as pt can only take in soft foods but has chronic vomiting, may be another source for nutrition such as peg tube. HPI General Mode of arrival: EMS . Date/Time Provider Initiated Documentation: 10/25/18 20:27 . Limitations to Documentation: no limitations . Information obtained by: patient . HPI Narrative: Patient is a 53-year-old female with a history of alcohol abuse, tobacco abuse, and recently diagnosed esophageal cancer who presents for hypokalemia per routine home health labs today. Patient was admitted here last month on 09/26 for sepsis due to pneumonia and UTI and alcohol withdrawal hallucinosis and was found to have anemia likely due to bleeding from her esophageal mass and dysphagia to solids and subsequently had an EGD at [facility] which noted the esophageal mass. 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 Biopsy of her esophageal mass noted squamous cell carcinoma. She was continued on IV antibiotics through a PICC line for MSSA bacteremia and is awaiting outpatient follow-up per the tumor board for treatment of her esophageal mass. She states she is mainly eating soft foods, yogurt, ice cream, dairy. She states she chronically has vomiting and diarrhea but states this is no worse than usual. She denies any recent fever, chest pain, shortness of breath or abdominal pain. She states she was told recently that she may have had low potassium last week, and was called in 2 tabs of potassium to take at home. Related Data Home Medications Medication Instructions Recorded Confirmed fluticasone [Flonase Allergy 2 spray INTRANASAL DAILY PRN 10/01/18 10/25/18 Relief] acetaminophen [Acephen] 650 mg [place] Q6H PRN PRN #0 ea 10/10/18 10/25/18 bupropion HCl 150 mg PO BID 10/25/18 10/26/18 folic acid 1 mg PO DAILY 10/25/18 10/25/18 levothyroxine 50 mcg PO DAILY 10/25/18 10/25/18 multivitamin 1 tab PO DAILY 10/25/18 10/25/18 nafcillin 2 g IV Q4H 10/25/18 10/25/18 omeprazole 40 mg PO DAILY 10/25/18 10/25/18 rosuvastatin 5 mg PO DAILY 10/25/18 10/25/18 tamoxifen 20 mg PO DAILY 10/25/18 10/25/18 thiamine HCl (vitamin B1) [Vitamin 100 mg PO DAILY 10/25/18 10/25/18 B-1] venlafaxine 150 mg PO DAILY 10/25/18 10/25/18 Previous Rx's Medication Instructions Recorded acetaminophen [Acephen] 650 mg MD Q6H PRN PRN #0 ea 10/10/18 Allergies Allergy/AdvReac Type Severity Reaction Status Date / Time No Known Allergies Allergy Unverified 10/25/18 20:41 General Stated Complaint: GenMedical DELMI: 3 Review of Systems Review of Systems All systems reviewed & are unremarkable except as noted in HPI and below Constitutional Reports as per HPI, Denies chills and Denies fever(s) Eyes Denies blurry vision ENT Denies dizziness, Denies sore throat and Denies throat swelling Cardiovascular Denies chest pain and Denies dyspnea Respiratory Denies dyspnea Gastrointestinal Denies abdominal pain, Reports diarrhea and Reports vomiting Genitourinary Denies hematuria and Denies dysuria Musculoskeletal Denies back pain and Denies numbness Integumentary/Breasts Denies lesions and Denies rash Neurologic Denies dizziness and Denies numbness Allergic/Immunologic Denies throat swelling PFSH Medical History Depression (Chronic) Cachexia (Acute) Bacteremia (Acute) Squamous cell carcinoma of esophagus (Acute) Malnutrition (Chronic) Hypokalemia (Acute) Hypomagnesemia (Acute) Medical non-compliance (Chronic) Tobacco abuse (Chronic) Breast cancer (Chronic) PAD (peripheral artery disease) (Chronic) Dysphagia (Chronic) Alcohol abuse (Chronic) Hypertension (Chronic) Hypothyroidism (Chronic) Surgical History H/O breast biopsy (Chronic) Hx of tubal ligation (Chronic) S/P breast lumpectomy (Chronic) Social History Smoking/Tobacco Use Status: Current every day alcohol intake: current alcohol intake frequency: 3 or more drinks per day Alcohol type: beer Exam Const General: cooperative, healthy appearing and no acute distress HENID Head: normal to inspection Face and sinus: normal facial exam Eyes General: appearance normal, both eyes and all related structures EOM: EOM intact bilaterally Neck Neck: normal visual inspection and No submandibular swelling Lymphatic: no lymphadenopathy noted Chest Chest: normal inspection of the chest and no tenderness Resp Effort & Inspection: normal respiratory effort and able to speak in complete sentences Auscultation: clear to auscultation bilaterally Cardio Rate: regular rate Rhythm: regular rhythm GI Inspection: normal to inspection Palpation: soft, not firm, not rigid and nontender Auscultation: normal bowel sounds Skin General skin exam: no rashes or lesions noted Neuro General: alert, awake and oriented x3 Cognition: normal cognition Speech: speech normal Motor: muscle tone normal throughout Sensory Exam: no sensory deficits noted Extrem General: normal to inspection, full ROM, normal capillary refill, no calf tenderness bilaterally, no edema and other (PICC line in left upper inner arm. No evidence of infection. ) Psych Appearance: grossly normal Mental Status: mental status grossly normal Speech and Movement: speech and movement normal Affect: normal affect Course Vital Signs Temperature 97.8 F 10/25/18 20:27 Pulse 91 H 10/25/18 20:27 Respiratory Rate 18 10/25/18 20:27 Blood Pressure 136/97 H 10/25/18 20:27 Pulse Oximetry 100 10/25/18 20:27 Temperature 97.8 F 10/25/18 20:27 Temperature Source Skin 10/25/18 20:27 Pulse 91 H 10/25/18 20:27 Respiratory Rate 18 10/25/18 20:27 Respiratory Effort Non-Labored 10/25/18 20:33 Blood Pressure 136/97 H 10/25/18 20:27 Blood Pressure Position Supine 10/25/18 20:27 Pulse Oximetry 100 10/25/18 20:27 Oxygen Delivery Method Room Air 10/25/18 20:27 Oxygen Flow Rate 0 10/25/18 20:27 Lab/Test Results Lab/Test Results: Laboratory Tests Range/Units 10/25/18 10/25/18 20:55 20:55 WBC (4.4-10.8) k/cumm 11.63 H RBC (4.00-5.20) m/cumm 3.41 L Hgb (12.0-15.5) g/dL 10.6 L Hct (36.0-46.0) % 31.1 L MCV (80-95) fL 91.2 MCH (27.0-33.0) pg 31.1 MCHC (32.0-36.0) g/dL 34.1 RDW (11.7-14.6) % 18.0 H Plt Count (130-400) x1000/uL 502 H MPV (8.0-11.0) fL 8.5 Immature Gran % 0.3 Neutrophils % 74.0 Lymphocytes % 17.5 Monocytes % 6.8 Eosinophils % 1.1 Basophils % 0.3 Absolute Neutrophils (1.2-6.7) k/cumm 8.61 H Absolute Lymphocytes (1.2-3.4) k/cumm 2.04 Absolute Monocytes (0.11-0.7) k/cumm 0.79 H Absolute Eosinophils (0.0-0.7) k/cumm 0.13 Absolute Basophils (0.0-0.2) k/cumm 0.03 Sodium (136-145) mmol/L 138 Potassium (3.5-5.1) mmol/L 2.1 L* Chloride (98-107) mmol/L 98 Carbon Dioxide (21.0-32.0) mmol/L 28.9 Anion Gap (3-11) mmol/L 11.1 H BUN (7-18) mg/dL 7 Creatinine (0.55-1.02) mg/dL 0.74 Estimated GFR/1.73 m2 (mL/min/1.73m2) >= 60.00 Glucose (70-100) mg/dL 103 H Calcium (8.5-10.1) mg/dL 9.0 Magnesium (1.8-2.4) mg/dL 1.0 L Total Bilirubin (0.2-1.0) mg/dL 0.9 AST (15-37) U/L 16 ALT (12-78) U/L 8 L Alkaline Phosphatase (46-116) U/L 102 Troponin I (0.00-0.06) ng/mL < 0.02 Total Protein (6.4-8.2) g/dL 7.1 Albumin (3.4-5.0) g/dL 1.7 L
[2018-10-25] MEDS: MAGNESIUM SULFATE 2 GM/50 ML BAG IVPB (22:30)
--- NOTE | 2018-10-25 23:53 | W.PM.HP.N ---
Date of service: 10/25/18 Time of Service: 23:54 Assessment and Plan (1) Hypokalemia: Start date: 10/25/18 Current visit: Yes Status: Acute Patient will receive IV potassium with ED physician ordering 20 mg IV x2 and she did attempt oral potassium which the patient mostly vomiting. Follow-up lab in the morning and decide on long-term supplement to avoid hypokalemia which is recurrent. She will be on observation with decision on outpatient care tomorrow with geriatric social work professor to help local support and possible referral from the primary care physician for surgery to place a PEG tube if needed. She will continue to have problems with nutrition if she does not have alternative route for enteral nutrition. She also could use a PEG tube for meds that are needed. (2) Hypomagnesemia: Start date: 10/25/18 Current visit: Yes Status: Acute 2 g IV was given in the ED and will follow up magnesium in the morning. Long-term she needs alternative route for magnesium supplement. (3) Squamous cell carcinoma of esophagus: Start date: 10/25/18 Current visit: No Status: Acute Follow-up with the tumor board at [facility] for long-term plans of treatment. Prognosis poor with patient's lifestyle continuing to smoke and drinking up to the time she was diagnosed with cancer with malnutrition and weight loss as well as poor compliance with treatment of her previously diagnosed breast cancer. She is a full code thus far. (4) Malnutrition: Current visit: Yes Status: Chronic Long-term patient needs an alternative route of nutrition with PEG tube making the most sense. Should be discussed as to how to obtain this as an outpatient. Her local physician should be engaged. Surgical consultation may be appropriate for outpatient care. History of Present Illness Chief Complaint: Low potassium with poor intake Narrative: This is a 53-year-old lady recently diagnosed with squamous cell esophageal cancer at [facility] who has had decreased intake because of difficulty swallowing and has a PICC line for treatment of staph aureus bacteremia but no PEG tube to assist with nutritional intake. She had to take mostly full liquids which contain milk and cause diarrhea because of patient's lactate deficiency. There is no clear plan for alternatives for home nutrition or establishment with a local physician as of yet. She currently has vomiting with the ongoing diarrhea with the vomiting and dysphasia being chronic and not necessarily worse. She was found to be severely hypokalemic and hypomagnesemic currently with IV resuscitation for replacement of fluids and potassium with magnesium and will be admitted for observation to correct these as much as possible and to review treatment plan for long-term enteral feeding and replacement of these losses. Review of Systems Constitutional Reports anorexia, Denies frequent falls, Denies headache(s), Reports malaise, Reports weakness and Reports weight loss (Patient states she has lost about 30 pounds ) Eyes Denies change in vision ENT Reports dysphagia and Denies headache(s) Cardiovascular Denies chest pain and Denies edema Respiratory Denies hemoptysis Gastrointestinal Denies melena, Reports dysphagia, Denies dyspepsia, Reports diarrhea, Reports vomiting and Denies hematemesis Genitourinary Denies urinary frequency and Denies dysuria Musculoskeletal Denies myalgias, Reports atrophy, Denies joint swelling and Reports muscle weakness Neurologic Denies frequent falls, Denies headache(s), Denies focal weakness and Reports weakness Psychiatric Reports anxiety, Reports depression and Reports hopelessness Endocrine Reports change in body appearance, Denies polyphagia and Denies polydipsia Hematologic/Lymphatic Denies easy bruising [facility] Medical History Medical non-compliance (Chronic) Tobacco abuse (Chronic) Breast cancer (Chronic) PAD (peripheral artery disease) (Chronic) Dysphagia (Chronic) Alcohol abuse (Chronic) Hypertension (Chronic) Hypothyroidism (Chronic) Surgical History H/O breast biopsy (Chronic) Hx of tubal ligation (Chronic) S/P breast lumpectomy (Chronic) Social History Smoking/Tobacco Use Status: Current every day alcohol intake: current alcohol intake frequency: 3 or more drinks per day Alcohol type: beer Meds Home Medications Medication Instructions Recorded Confirmed Type fluticasone [Flonase Allergy 2 spray INTRANASAL DAILY PRN 10/01/18 10/25/18 History Relief] acetaminophen [Acephen] 650 mg [place] Q6H PRN PRN #0 ea 10/10/18 10/25/18 Rx bupropion HCl 150 mg PO DAILY 10/25/18 10/25/18 History folic acid 1 mg PO DAILY 10/25/18 10/25/18 History levothyroxine 50 mcg PO DAILY 10/25/18 10/25/18 History multivitamin 1 tab PO DAILY 10/25/18 10/25/18 History nafcillin 2 g IV Q4H 10/25/18 10/25/18 History omeprazole 40 mg PO DAILY 10/25/18 10/25/18 History rosuvastatin 5 mg PO DAILY 10/25/18 10/25/18 History tamoxifen 20 mg PO DAILY 10/25/18 10/25/18 History thiamine HCl (vitamin B1) [Vitamin 100 mg PO DAILY 10/25/18 10/25/18 History B-1] venlafaxine 150 mg PO DAILY 10/25/18 10/25/18 History Allergies Allergy/AdvReac Type Severity Reaction Status Date / Time No Known Allergies Allergy Unverified 10/25/18 20:41 Exam Narrative Exam Narrative: General: Patient appears cachectic but comfortable lying in bed, alert and oriented x3 in no acute distress. She has a flattened affect with depressed mood. HEENT: Slightly puffy face with normal eyes, oropharynx with dry oral mucosa and poor dentition, ears normal, eyes with pupils equal react light symmetric and excellent movement intact with sclerae anicteric. Neck: Supple without JVD. Back: Stooped posture with no CVA tenderness. Lungs: Bronchovesicular breath sounds diffusely with no focalizing rales or rhonchi, no wheezing or increased expiratory phase. Heart: Regular rate and rhythm with dynamic S1-S2 and no S3 or S4 auscultated. No murmurs appreciated. No gallops. No rubs. Breast: Exam deferred. Patient does have a history of previous right breast cancer with lumpectomy. Abdomen: Scaphoid with bowel sounds hypoactive and all quadrants, no palpable hepatomegaly. No palpable masses. No auscultated bruits. Pelvic and rectal: Exam deferred. Extremities: Muscle wasting diffusely with no edema, no cyanosis and no clubbing. Pulses are intact with fair capillary refill. Skin: Decreased turgor, pale, warm and dry. No rashes noted. She is darkly tanned. Neuro: No focal motor deficits, cranial nerves 2-12 grossly intact. Psych: Flattened affect with depressed mood, term and long-term memory intact. No abnormal thought processes. Results Labs : 10/25/18 20:55 10/25/18 20:55 Laboratory Results - last 24 hr 10/25/18 10/25/18 20:55 20:55 WBC 11.63 H RBC 3.41 L Hgb 10.6 L Hct 31.1 L MCV 91.2 MCH 31.1 MCHC 34.1 RDW 18.0 H Plt Count 502 H MPV 8.5 Immature Gran % 0.3 Neutrophils % 74.0 Lymphocytes % 17.5 Monocytes % 6.8 Eosinophils % 1.1 Basophils % 0.3 Absolute Neutrophils 8.61 H Absolute Lymphocytes 2.04 Absolute Monocytes 0.79 H Absolute Eosinophils 0.13 Absolute Basophils 0.03 Sodium 138 Potassium 2.1 L* Chloride 98 Carbon Dioxide 28.9 Anion Gap 11.1 H BUN 7 Creatinine 0.74 Estimated GFR/1.73 m2 >= 60.00 Glucose 103 H Calcium 9.0 Magnesium 1.0 L Total Bilirubin 0.9 AST 16 ALT 8 L Alkaline Phosphatase 102 Troponin I < 0.02 Total Protein 7.1 Albumin 1.7 L Last Vital Signs Temp 36.6 C 10/25/18 20:27 Pulse 91 H 10/25/18 20:27 Resp 18 10/25/18 23:40 BP 136/97 H 10/25/18 20:27 Pulse Ox 97 10/25/18 22:20
--- NOTE | 2018-10-25 23:57 | HPE_ITS ---
Date of service: 10/25/18 Time of Service: 23:54 Assessment and Plan (1) Hypokalemia: Start date: 10/25/18 Current visit: Yes Status: Acute Patient will receive IV potassium with ED physician ordering 20 mg IV x2 and she did attempt oral potassium which the patient mostly vomiting. Follow-up lab in the morning and decide on long-term supplement to avoid hypokalemia which is recurrent. She will be on observation with decision on outpatient care tomorrow with case management social worker to help local support and possible referral from the primary care physician for surgery to place a PEG tube if needed. She will continue to have problems with nutrition if she does not have alternative route for enteral nutrition. She also could use a PEG tube for meds that are needed. (2) Hypomagnesemia: Start date: 10/25/18 Current visit: Yes Status: Acute 2 g IV was given in the ED and will follow up magnesium in the morning. Long-term she needs alternative route for magnesium supplement. (3) Squamous cell carcinoma of esophagus: Start date: 10/25/18 Current visit: No Status: Acute Follow-up with the tumor board at [facility] for long-term plans of treatment. Prognosis poor with patient's lifestyle continuing to smoke and drinking up to the time she was diagnosed with cancer with malnutrition and weight loss as well as poor compliance with treatment of her previously diagnosed breast cancer. She is a full code thus far. (4) Malnutrition: Current visit: Yes Status: Chronic Long-term patient needs an alternative route of nutrition with PEG tube making the most sense. Should be discussed as to how to obtain this as an outpatient. Her local physician should be engaged. Surgical consultation may be appropriate for outpatient care. History of Present Illness Chief Complaint: Low potassium with poor intake Narrative: This is a 53-year-old lady recently diagnosed with squamous cell esophageal cancer at [facility] who has had decreased intake because of difficulty s wallowing and has a PICC line for treatment of staph aureus bacteremia but no PEG tube to assist with nutritional intake. She had to take mostly full liquids which contain milk and cause diarrhea because of patient's lactate deficiency. There is no clear plan for alternatives for home nutrition or establishment with a local physician as of yet. She currently has vomiting with the ongoing diarrh ea with the vomiting and dysphasia being chronic and not necessarily worse. She was found to be severely hypokalemic and hypomagnesemic currently with IV resuscitation for replacement of fluids and potassium with magnesium and will be admitted for observation to correct these as much as possible and to review treatment plan for long-term enteral feeding and replacement of these losses. Review of Systems Constitutional Reports anorexia, Denies frequent falls, Denies headache(s), Reports malaise, Reports weakness and Reports weight loss (Patient states she has lost about 30 pounds ) Eyes Denies change in vision ENT Reports dysphagia and Denies headache(s) Cardiovascular Denies chest pain and Denies edema Respiratory Denies hemoptysis Gastrointestinal Denies melena, Reports dysphagia, Denies dyspepsia, Reports diarrhea, Reports vomiting and Denies hematemesis Genitourinary Denies urinary frequency and Denies dysuria Musculoskeletal Denies myalgias, Reports atrophy, Denies joint swelling and Reports muscle weakness Neurologic Denies frequent falls, Denies headache(s), Denies focal weakness and Reports weakness Psychiatric Reports anxiety, Reports depression and Reports hopelessness Endocrine Reports change in body appearance, Denies polyphagia and Denies polydipsia Hematologic/Lymphatic Denies easy bruising PFSH Medical History Medical non-compliance (Chronic) Tobacco abuse (Chronic) Breast cancer (Chronic) PAD (peripheral artery disease) (Chronic) Dysphagia (Chronic) Alcohol abuse (Chronic) Hypertension (Chronic) Hypothyroidism (Chronic) Surgical History H/O breast biopsy (Chronic) Hx of tubal ligation (Chronic) S/P breast lumpectomy (Chronic) Social History Smoking/Tobacco Use Status: Current every day alcohol intake: current alcohol intake frequency: 3 or more drinks per day Alcohol type: beer Meds Home Medications Medication Instructions Recorded Confirmed Type fluticasone [Flonase Allergy 2 spray INTRANASAL DAILY PRN 10/01/18 10/25/18 History Relief] acetaminophen [Acephen] 650 mg [place] Q6H PRN PRN #0 ea 10/10/18 10/25/18 Rx bupropion HCl 150 mg PO DAILY 10/25/18 10/25/18 History folic acid 1 mg PO DAILY 10/25/18 10/25/18 History levothyroxine 50 mcg PO DAILY 10/25/18 10/25/18 History multivitamin 1 tab PO DAILY 10/25/18 10/25/18 History nafcillin 2 g IV Q4H 10/25/18 10/25/18 History omeprazole 40 mg PO DAILY 10/25/18 10/25/18 History rosuvastatin 5 mg PO DAILY 10/25/18 10/25/18 History tamoxifen 20 mg PO DAILY 10/25/18 10/25/18 History thiamine HCl (vitamin B1) [Vitamin 100 mg PO DAILY 10/25/18 10/25/18 History B-1] venlafaxine 150 mg PO DAILY 10/25/18 10/25/18 History Allergies Allergy/AdvReac Type Severity Reaction Status Date / Time No Known Allergies Allergy Unverified 10/25/18 20:41 Exam Narrative Exam Narrative: General: Patient appears cachectic but comfortable lying in bed, alert and oriented x3 in no acute distress. She has a flattened affect with depressed mood. HEENT: Slightly puffy face with normal eyes, oropharynx with dry oral mucosa and poor dentition, ears normal, eyes with pupils equal react light symmetric and excellent movement intact with sclerae anicteric. Neck: Supple without JVD. Back: Stooped posture with no CVA tenderness. Lungs: Bronchovesicular breath sounds diffusely with no focalizing rales or rhonchi, no wheezing or increased expiratory phase. Heart: Regular rate and rhythm with dynamic S1-S2 and no S3 or S4 auscultated. No murmurs appreciated. No gallops. No rubs. Breast: Exam deferred. Patient does have a history of previous right breast cancer with lumpectomy. Abdomen: Scaphoid with bowel sounds hypoactive and all quadrants, no palpable hepatomegaly. No palpable masses. No auscultated bruits. Pelvic and rectal: Exam deferred. Extremities: Muscle wasting diffusely with no edema, no cyanosis and no clubbing. Pulses are intact with fair capillary refill. Skin: Decreased turgor, pale, warm and dry. No rashes noted. She is darkly tanned. Neuro: No focal motor deficits, cranial nerves 2-12 grossly intact. Psych: Flattened affect with depressed mood, term and long-term memory intact. No abnormal thought processes. Results Labs : 10/25/18 20:55 10/25/18 20:55 Laboratory Results - last 24 hr 10/25/18 10/25/18 20:55 20:55 WBC 11.63 H RBC 3.41 L Hgb 10.6 L Hct 31.1 L MCV 91.2 MCH 31.1 MCHC 34.1 RDW 18.0 H Plt Count 502 H MPV 8.5 Immature Gran % 0.3 Neutrophils % 74.0 Lymphocytes % 17.5 Monocytes % 6.8 Eosinophils % 1.1 Basophils % 0.3 Absolute Neutrophils 8.61 H Absolute Lymphocytes 2.04 Absolute Monocytes 0.79 H Absolute Eosinophils 0.13 Absolute Basophils 0.03 Sodium 138 Potassium 2.1 L* Chloride 98 Carbon Dioxide 28.9 Anion Gap 11.1 H BUN 7 Creatinine 0.74 Estimated GFR/1.73 m2 >= 60.00 Glucose 103 H Calcium 9.0 Magnesium 1.0 L Total Bilirubin 0.9 AST 16 ALT 8 L Alkaline Phosphatase 102 Troponin I < 0.02 Total Protein 7.1 Albumin 1.7 L Last Vital Signs Temp 36.6 C 10/25/18 20:27 Pulse 91 H 10/25/18 20:27 Resp 18 10/25/18 23:40 BP 136/97 H 10/25/18 20:27 Pulse Ox 97 10/25/18 22:20
[2018-10-26] VITALS (11 sets, daily range): BP systolic 124–154; BP diastolic 76–109; PULSE 72–98; RESP 16–19; TEMP 36.3–37.1; O2SAT 97–100
[2018-10-26] MEDS: Normal Saline 1,000 ML 125 ML IV (02:04)
[2018-10-26] MEDS: Levothyroxine 50 MCG TAB PO (06:11)
[2018-10-26 07:49] LABS: ALT 6 U/L (12-78); AST 15 U/L (15-37); Albumin 1.4 g/dL (3.4-5.0); Alkaline Phosphatase 86 U/L (46-116); BUN 5 mg/dL (7-18); Bilirubin, Total 0.6 mg/dL (0.2-1.0); CREATININE 0.57 mg/dL (0.55-1.02); Calcium 8.3 mg/dL (8.5-10.1); Chloride 102 mmol/L (98-107); Glucose 100 mg/dL (70-100); Magnesium 1.4 mg/dL (1.8-2.4); Sodium 139 mmol/L (136-145); Total Protein 6.1 g/dL (6.4-8.2)
[2018-10-26 07:55] LABS: Potassium 1.8 mmol/L (3.5-5.1)
--- NOTE | 2018-10-26 08:42 | PDOC.CMIN ---
- If Service Date Differs Date of service: 10/26/18 Time of Service: 08:42 Care Management Initial Assess REASON FOR HOSPITALIZATION:: Hypokalemia, hypomagnesemia with esophageal cancer. PAST MEDICAL HISTORY/PAST SURGICAL HISTORY:: Esophageal CA, breast CA, tobacco and alcohol abuse, hypothyroidism, hypertension, dysphagia, PAD. Surgical hx: breast biopsy and lumpectomy, tubal ligation. PREVIOUS FUNCTIONAL STATUS/SOCIAL/FAMILY SUPPORTS:: Cece resides in [place] with her boyfriend, RHODA. She is independent with her ADLs and relies on [employer] for transportation. 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 She has not worked since her admission and is working on disability paperwork. CURRENT FUNCTIONAL STATUS:: Cece is sitting in bed when visits this morning. She is engaged in conversation, makes good eye contact, and is talkative. Cece reports that she feels like shit. Cece was admitted to [facility] on 09/26 and transferred to [facility] on 10/10. She was re-admitted to [facility] on 10/25 with hypokalemia and hypomagnesemia. At present, Cece is receiving IV fluids, IV mag and IV potassium. She has had a surgical consult for PEG tube placement (she is in agreement with the placement) and will have a nutritional consult, speech consult, and palliative consult. Cece is additionally being monitored on telemetry and is receiving nafcillin via CADD pump. She reports that she has not had a drink since her first admission to [facility] (at that time she was admitted for ETOH withdrawal) but continues to smoke cigarettes. CM and Cece discussed her Advanced Directives, which are not on file at [facility]. She reports that she has them at home but would like her boyfriend and two sons, Aleks and Simon, to be together to discuss the details. ADVANCE DIRECTIVES:: None on file at [facility]. Patient reports that she has them at home and is waiting to complete them with her sons and boyfriend. Education provided. Has patient been provided with information about the portal?: Yes Did the patient sign up for the portal?: No CODE STATUS:: Full Code INSURANCE COVERAGE / FINANCIAL ISSUES:: Medicaid. CURRENT HOME/COMMUNITY SERVICES/EQUIPMENT:: No current home or community services. Hospital bed, FWW. PRIMARY CARE PHYSICIAN:: Rowena Mayo. POTENTIAL DISCHARGE NEEDS:: Community supports/referrals, follow up appointment with PCP. PATIENT/FAMILY EDUCATION NEEDS:: Discharge education, any limitations, and follow up plan of care. Ask Me Three discussion. ANTICIPATED BARRIERS TO DISCHARGE:: No anticipated barriers to discharge identified at this time. TRANSPORTATION:: Cece will transport via private vehicle with her boyfriend, RHODA. PLAN:: Cece will discharge home when medically ready per MD. Anticipate patient will discharge with no services (?) and follow up with her PCP. CM will continue to offer support to patient and care team regarding discharge planning and disposition. Readmission - Within the Past 30 Days Yes or No: Y - Date of First Admission Date of 1st Admission: 09/26/18 - Date of this Admission Date of Admission: 10/26/18 This admission was: Through ED - Office Visit Since 1st Admission Have you seen your PCP in the office since discharge?: No Describe barriers for scheduling or getting an appointment: Patient was at [facility] until approximately one week ago. - Speicalist Appointments Have you seen any other specialist since your 1st Admission?: No - ED visits How many ED visits in the past 12 months: 3 - Assessment for Readmission Summary of readmission circumstances, based upon interviews: Cece was transferred to [facility] from [facility] on 10/10/18. According to patient, she returned home about a week ago and has not had a follow up with her PCP since then. Cece's electrolytes (magnesium, potassium) are depleted due to her inability to eat. Patient believes this is why she is back at the hospital. Cece has multiple co-morbidities including a recently diagnosed esophageal cancer and history of breast cancer. She is interested in radiation and chemotherapy at [facility].
--- NOTE | 2018-10-26 09:06 | INITIAL_ITS ---
- If Service Date Differs Date of service: 10/26/18 Time of Service: 08:42 Care Management Initial Assess REASON FOR HOSPITALIZATION:: Hypokalemia, hypomagnesemia with esophageal cancer. PAST MEDICAL HISTORY/PAST SURGICAL HISTORY:: Esophageal CA, breast CA, tobacco and alcohol abuse, hypothyroidism, hypertension, dysphagia, PAD. Surgical hx: breast biopsy and lumpectomy, tubal ligation. PREVIOUS FUNCTIONAL STATUS/SOCIAL/FAMILY SUPPORTS:: Cece resides in [place] with her boyfriend, RHODA. She is independent with her ADLs and relies on [employer] for transportation. 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 She has not worked since her admission and is working on disability paperwork. CURRENT FUNCTIONAL STATUS:: Cece is sitting in bed when visits this morning. She is engaged in conversation, makes good eye contact, and is talkative. Cece reports that she feels like shit. Cece was admitted to [facility] on 09/26 and transferred to [facility] on 10/10. She was re-admitted to [facility] on 10/25 with hypokalemia and hypomagnesemia. At present, Cece is receiving IV fluids, IV mag and IV potassium. She has had a surgical consult for PEG tube placement (she is in agreement with the placement) and will have a nutritional consult, speech consult, and palliative consult. Cece is additionally being monitored on telemetry and is receiving nafcillin via CADD pump. She reports that she has not had a drink since her first admission to [facility] (at that time she was admitted for ETOH withdrawal) but continues to smoke cigarettes. CM and Cece discussed her Advanced Directives, which are not on file at [facility]. She reports that she has them at home but would like her boyfriend and two sons, Aleks and Simon, to be together to discuss the details. ADVANCE DIRECTIVES:: None on file at [facility]. Patient reports that she has them at home and is waiting to complete them with her sons and boyfriend. Education provided. Has patient been provided with information about the portal?: Yes Did the patient sign up for the portal?: No CODE STATUS:: Full Code INSURANCE COVERAGE / FINANCIAL ISSUES:: Medicaid. CURRENT HOME/COMMUNITY SERVICES/EQUIPMENT:: No current home or community services. Hospital bed, FWW. PRIMARY CARE PHYSICIAN:: Rowena Mayo. POTENTIAL DISCHARGE NEEDS:: Community supports/referrals, follow up appointment with PCP. PATIENT/FAMILY EDUCATION NEEDS:: Discharge education, any limitations, and follow up plan of care. Ask Me Three discussion. ANTICIPATED BARRIERS TO DISCHARGE:: No anticipated barriers to discharge identified at this time. TRANSPORTATION:: Cece will transport via private vehicle with her boyfriend, RHODA. PLAN:: Cece will discharge home when medically ready per MD. Anticipate patient will discharge with no services (?) and follow up with her PCP. CM will continue to offer support to patient and care team regarding discharge planning and disposition. Readmission - Within the Past 30 Days Yes or No: Y - Date of First Admission Date of 1st Admission: 09/26/18 - Date of this Admission Date of Admission: 10/26/18 This admission was: Through ED - Office Visit Since 1st Admission Have you seen your PCP in the office since discharge?: No Describe barriers for scheduling or getting an appointment: Patient was at [facility] until approximately one week ago. - Speicalist Appointments Have you seen any other specialist since your 1st Admission?: No - ED visits How many ED visits in the past 12 months: 3 - Assessment for Readmission Summary of readmission circumstances, based upon interviews: Cece was transferred to [facility] from [facility] on 10/10/18. According to patient, she returned home about a week ago and has not had a follow up with her PCP since then. Cece's electrolytes (magnesium, potassium) are depleted due to her inability to eat. Patient believes this is why she is back at the hospital. Cece has multiple co-morbidities including a recently diagnosed esophageal cancer and history of breast cancer. She is interested in radiation and chemotherapy at [facility].
[2018-10-26] MEDS: Rosuvastatin 5 MG TAB PO (09:09)
[2018-10-26] MEDS: Omeprazole 20 MG CAPCR 40 MG PO (09:09)
[2018-10-26] MEDS: Venlafaxine 150 MG CAPCR PO (09:09)
[2018-10-26] MEDS: Thiamine 100 MG TAB PO (09:09)
[2018-10-26] MEDS: Multivitamin TAB 1 TAB PO (09:09)
[2018-10-26] MEDS: Folic Acid 1 MG TAB PO (09:09)
[2018-10-26] MEDS: buPROPion-CR 150 MG TABCR PO (09:09)
[2018-10-26] MEDS: MAGNESIUM SULFATE 2 GM/50 ML BAG IVPB (09:16)
[2018-10-26] MEDS: POTASSIUM CHLORIDE/D5-0.45NACL 1,000 ML 100 MEQ IV ×2 (09:16→20:37)
[2018-10-26] MEDS: POTASSIUM CHLORIDE 10 MEQ/100 ML BAG 100 MEQ IVPB ×4 (09:49→14:04)
--- NOTE | 2018-10-26 10:14 | W.SURGCON ---
Date of service: 10/26/18 Time of Service: 10:15 Assessment and Plan (1) Bacteremia: Start date: 10/26/18 Start time: 10:25 Current visit: Yes Status: Acute cont iv antibiotics (2) Cachexia: Start date: 10/26/18 Start time: 10:25 Current visit: Yes Status: Acute will need enteral feeding source, poss PEG vs open feeding tube (3) Squamous cell carcinoma of esophagus: Start date: 10/26/18 Start time: 10:27 Current visit: Yes Status: Acute pt to start treatment for her cancer radiation and chemotherapy (4) Hypokalemia: Start date: 10/26/18 Start time: 10:28 Current visit: Yes Status: Acute iv replacement (5) Hypomagnesemia: Start date: 10/26/18 Start time: 10:28 Current visit: Yes Status: Acute iv replacement (6) Malnutrition: Current visit: Yes Status: Chronic (7) Dysphagia: Start date: 10/26/18 Start time: 10:29 Current visit: Yes Status: Chronic feeding tube History of Present Illness Chief Complaint: Dysphagia with inability to swallow solid food, esophageal mass Consults Consult date: 10/26/18 Requesting physician: Mason Mohan Review of Systems Review of Systems All systems reviewed & are unremarkable except as noted in HPI and below ENT Reports dysphagia Gastrointestinal Reports dysphagia and Reports vomiting Comments: diagnosed with esophageal mass [facility] Medical History Medical non-compliance (Chronic) Tobacco abuse (Chronic) Breast cancer (Chronic) PAD (peripheral artery disease) (Chronic) Dysphagia (Chronic) Alcohol abuse (Chronic) Hypertension (Chronic) Hypothyroidism (Chronic) Surgical History H/O breast biopsy (Chronic) Hx of tubal ligation (Chronic) S/P breast lumpectomy (Chronic) Social History Smoking/Tobacco Use Status: Current every day alcohol intake: current alcohol intake frequency: 3 or more drinks per day Alcohol type: beer Exam Narrative Exam Narrative: pt sitting up in bed drinking liquids, no obvious distress pt in need of enteral nutrition access due to the mass and her cachexia she will need to be able to get nutrition through her future treatments radiation and chemo pt came in with hypokalemia (K-1.8)and she states she was being preoped for cardiac surgery for 3 blocked arteries in her heart Results Last Vital Signs Temp 36.4 C L 10/26/18 07:40 Pulse 72 10/26/18 07:40 Resp 16 10/26/18 07:40 BP 154/76 H 10/26/18 07:40 Pulse Ox 97 10/26/18 09:36 Labs : 10/25/18 20:55 10/26/18 07:10 Laboratory Results - last 24 hr 10/25/18 10/25/18 10/26/18 20:55 20:55 07:10 WBC 11.63 H RBC 3.41 L Hgb 10.6 L Hct 31.1 L MCV 91.2 MCH 31.1 MCHC 34.1 RDW 18.0 H Plt Count 502 H MPV 8.5 Immature Gran % 0.3 Neutrophils % 74.0 Lymphocytes % 17.5 Monocytes % 6.8 Eosinophils % 1.1 Basophils % 0.3 Absolute Neutrophils 8.61 H Absolute Lymphocytes 2.04 Absolute Monocytes 0.79 H Absolute Eosinophils 0.13 Absolute Basophils 0.03 Sodium 138 139 Potassium 2.1 L* 1.8 L* Chloride 98 102 Carbon Dioxide 28.9 26.0 Anion Gap 11.1 H 11.0 BUN 7 5 L Creatinine 0.74 0.57 Estimated GFR/1.73 m2 >= 60.00 >= 60.00 Glucose 103 H 100 Calcium 9.0 8.3 L Magnesium 1.0 L 1.4 L Total Bilirubin 0.9 0.6 AST 16 15 ALT 8 L 6 L Alkaline Phosphatase 102 86 Troponin I < 0.02 Total Protein 7.1 6.1 L Albumin 1.7 L 1.4 L
[2018-10-26] MEDS: Acetaminophen 500 MG TAB 1000 MG PO ×2 (11:43→21:48)
--- NOTE | 2018-10-26 11:54 | PHARADMIT ---
Addendum entered by Sandy Hoffman 11/06/18 14:33: Pharmacy Note Subjective Ambulating halls Objective BP 111/70, HR 90-100's, K+ 3.7, Mag 1.3 repeat blood cultures drawn 11/04: no growth x 24h Micro urine repeat cultures: no growth Assessment Mag 4 gram IV x1 Reglan dc'd Zosyn re-timed due to 4 hour Mag order Extra Potassium today Levaquin (day#3)/Zosyn(day#7) continues for Aspiration Pneumonia, do not see that either of these play a role in her hypomagesemia Plan Will continue Radiation @ [facility] after Pneumonia resolved Tube feeds are continuous but continues to Aspirate with laying flat Original Note: Addendum entered by Bryant Adair III 11/05/18 16:05: Pharmacy Note Subjective MD is advocating for patient to transfer to [facility] Radiation oncology, but patient's refusal to follow instructions (keeps aspirating) has delayed this from occurring.[facility] MD suggests patient come in as outpatient, once discharged. No beds available [facility] H&R. Objective VS-OK BP-152/81 Mag-2.1 K+4.2 Na-132 H&H-9.0/27.7 Plts-644 (up) Assessment Vancomycin dc'd, Levaquin continues. Plan No new MD note yet today. Original Note: Addendum entered by Angélica Vega 11/04/18 17:33: Pharmacy Note Subjective Objective BP 147/81 HR-92 other VS okay Na-132 K+4.4(down) mag-1.6 WBC-13.70(up) Assessment vanco trough came back at 20.2 and previous dose was given a little early so dosing held for 2 hours and adjusted to 750 mg Q14H to target a trough of 15.6 zosyn(day6)/vanco(day5) continue K+ liquid ordered daily; IV mag replacement ordered today Plan order vanco trough for 11/06, possible transfer to [facility]? Original Note: Addendum entered by Sandy Hoffman 11/03/18 15:21: Pharmacy Note Subjective MD mentioned swingbed status to continue monitoring Mag levels Objective Temp 37.6, Mag 1.6, H/H 9.5/28.7, WBC 11.45 Micro blood: no growth x72h Assessment Mag 4gram IV x1 Zosyn/Vanco continue day#3 for HCAP due to frequent likely aspiration No med changes Plan Vanco trough ordered for 11/04 @ 1500 No switch to swingbed status as of this note, CM working on placement referrals MD to contact Oncology about radiation treatment schedule Follow Mag, WBC Original Note: Addendum entered by Bryant Adair III 11/02/18 10:55: Pharmacy Note Subjective MD treating Pneumonia with IV ABX, Tube feedings continue, but has difficulty with residuals , Reglan increased. Objective VS-OK K+4.0 Mag-1.5 SCr-0.82 WBC-11.22 H&H-up Plts-518 Wgt- 49.4 kg had BM 11/01 Assessment Vancomycin trough 23.5 (dose held) adjusted dose to 750mg IV q12 hrs, waited extra 6 hrs (at 1600) Zosyn continues. Reglan IV increased to 10mg q6hrs (remains of Venlafaxine) Plan Awaiting appointment with oncology. Watch weight, follow Vancomycin Original Note: Addendum entered by Angélica Vega 11/01/18 15:21: Pharmacy Note Subjective oncology appointment cancelled today as not medically stable per morning report Objective BP-158/82 other VS okay Na-131 K+3.4(up) Cl-97(up) mag-1.5(up) h/h-9.0/27.4 plt-482(down) Assessment vanco trough came back at 21.9, so dose was adjusted to 750 mg Q10H to target a trough of 16.5 vanco (day2) and zosyn (day3) continue mirtazapine ordered 7.5 mg QHS IV K+ and mag given today metoclopramide scheduled Q6H starting yesterday, watch for possible EPS side effects as also on venlafaxine Plan vanco trough scheduled for tomorrow Original Note: Addendum entered by Bryant Adair III 10/29/18 14:32: Pharmacy Note Subjective Patient not tolerating G-tube feedings, nutrition consulted Spiked fever overnight (38.1C) WBC-11.51 MD ordered a unit of pRBCs for low H&H. Objective BP-107/67 VS-OK K+2.9 Mag-1.4 H&H- 7.3/22.4 Assessment Nafcillin completes later today. IV Bolus K+ & Mag today.... Meds still entered as through G-tube. Plan Patient has oncology appointment scheduled for Thursday. hoping to swing or discharge beforehand, (Thu or early Thursday) Original Note: Addendum entered by Rowena Kay 10/28/18 15:30: Pharmacy Note Subjective Went to OR for g-tube placement today; may switch her to a swing bed on thursday Objective BP 156/76 HR 109 tmax 38.1 K 3.2(up) Mag 1.7(up) Assessment switched all meds to liquids to be administered via g-tube (or edited with directions to crush/slurry) -potassium chloride 20mEq TID Plan continue to monitor vitals, labs, med changes (proper g-tube admin), side effects Original Note: Admission Pharmacy Clinical Review hypokalemia, hypomagnesemia, esophageal cancer Code Status Full Code Current Weight 50.349 kg Renally Cleared and Narrow Therapeutic Index Meds Crcl ~66.13 mL/min current meds okay QTc Value / Action Taken QTc 438 BP Control, Fever BP 157/76 afebrile Electrolytes reviewed K+ 1.8 mag 1.4 DVT Prophylaxis heparin Opiate Usage / Scheduled Bowel Regimen Ordered no/prn Plt/SCr for Heparin / Enoxaparin plt 502 SCr 0.57 INR for Warfarin n/a H/H stable, WBC/Bands h/h 10.6/31.1 wbc 11.63 Antibiotic appropriateness nafcillin (pts own) Cultures and Sensitivities none Surgical ABX d/c within 24 hr n/a DM control / Insulin Dosing BG 100 n/a Heart Failure (Check EF%) (DB's, B-Block, Diuretics) none IV to PO Switch n/a Home Meds Reviewed -bupropion may decrease serum concentrations of the active metabolites of tamoxifen which may decrease the clinical effectiveness of tamoxifen -separate admin of levothyroxine and multivitamin -bupropion may decrease the metabolism of venlafaxine which increases the risk of adverse reactions/toxicity Home Meds Not Ordered bupropion(was d/c'd), fluticasone Comments -has trouble swallowing some meds -pts own tamoxifen has not been brought in/checked by pharmacy yet -MD aware of bupropion/tamoxifen interaction and discontinued the bupropion; withdrawal symptoms resulting from abrupt discontinuation of bupropion are unlikely per [facility]
--- NOTE | 2018-10-26 12:13 | W.NUTCONSULT ---
Date of service: 10/26/18 Time of Service: 12:13 Nutritional Consult ASSESSMENT: Ms. Welch has been unable to take significant PO intake. She drinks full liquids as she has dysphasia and an esophageal mass. She will drink [place] Instant Breakfast when she is here. Her weight has been stable over the past month per weight records in EHR. She is 66 and 50.3 kg. Her BMI is 19.1 kg/m2 which is WNL. Her estimated energy needs are 1300 to 1500 calories per day (25-30 kcal/kg/day). Her estimated protein needs are 65 grams per day (1.3g/kg/day). NUTRITIONAL DIAGNOSIS: Inability to take adequate oral foods and fluids related to esophageal mass and dysphasia as evidenced by report of poor PO intake. INTERVENTION: Looks like plan is for PEG tube placement for nutrition support. Agree. Would recommend the following feeding regimen per PEG. Jevity 1.2 kevin. Total volume 1200 ml/day. It could be run continuously at 50 ml/hr or she can bolus to be more similar to how she eats and bolus 300 ml, four times per day or something similar. We can also run it continuously and work her rate up to 100 ml/hr so she can just cycle it overnight for 12 hours. This volume of feeding provides 1440 kcals, 66 grams of protein, 21.5 grams of fiber, and 955 ml of free water. She will likely need an additional 550 ml of free water to be well hydrated. This feeding will meet 100% of her estimated macronutrient needs and micronutrients. In the meantime, if she does not tolerate lactose, we can give her high calorie, high protein, lactose free liquids if she will accept them. MONITORING AND EVALUATION: 1. Will monitor her progress, her weight, and her acceptance of her nutrition care plan. 2. Will evaluate nutrition care plan ongoing and adjust as needed. Time Spent in Nutritional Counseling and Treatment: PARDEEP
--- NOTE | 2018-10-26 12:31 | NS.NUTBLAN_ITS ---
Date of service: 10/26/18 Time of Service: 12:13 Nutritional Consult ASSESSMENT: Ms. Welch has been unable to take significant PO intake. She drinks full liquids as she has dysphasia and an esophageal mass. She will drink [place] Instant Breakfast when she is here. Her weight has been stable over the past month per weight records in EHR. She is 66 and 50.3 kg. Her BMI is 19.1 kg/m2 which is WNL. Her estimated energy needs are 1300 to 1500 calories per day (25- 30 kcal/kg/day). Her estimated protein needs are 65 grams per day (1.3g/kg/day). NUTRITIONAL DIAGNOSIS: Inability to take adequate oral foods and fluids related to esophageal mass and dysphasia as evidenced by report of poor PO intake. INTERVENTION: Looks like plan is for PEG tube placement for nutrition support. Agree. Would recommend the following feeding regimen per PEG. Jevity 1.2 kevin. Total volume 1200 ml/day. It could be run continuously at 50 ml/hr or she can bolus to be more similar to how she eats and bolus 300 ml, four times per day or something similar. We can also run it continuously and work her rate up to 100 ml/hr so she can just cycle it overnight for 12 hours. This volume of feeding provides 1440 kcals, 66 grams of protein, 21.5 grams of fiber, and 955 ml of free water. She will likely need an additional 550 ml of free water to be well hydrated. This feeding will meet 100% of her estimated macronutrient needs and micronutrients. In the meantime, if she does not tolerate lactose, we can give her high calorie, high protein, lactose free liquids if she will accept them. MONITORING AND EVALUATION: 1. Will monitor her progress, her weight, and her acceptance of her nutrition care plan. 2. Will evaluate nutrition care plan ongoing and adjust as needed. Time Spent in Nutritional Counseling and Treatment: PARDEEP
--- NOTE | 2018-10-26 14:54 | W.PM.PROGNOT ---
Date of Service Date of service: 10/26/18 Time of Service: 13:03 Assessment and Plan (1) Cachexia: Current visit: Yes Status: Acute This is secondary to limited oral intake secondary to her esophageal cancer. Discussion initiated regarding PEG tube placement. Await opinion from Dr. Cornejo as to whether or not this can be done endoscopically, open, here or at tertiary center. Nutrition consultation placed. (2) Squamous cell carcinoma of esophagus: Current visit: Yes Status: Acute Has not yet had any definitive therapy, poor communication with [facility] cell service so has not had the phone calls from [facility] to set up appointment with radiation oncology. We will see if we can facilitate this while she is in the hospital. Other than her difficulties maintaining sufficient protein calorie intake, is not having pain or other symptoms referable to this and no overt evidence of bleeding. (3) Bacteremia: Current visit: Yes Status: Acute Complete 6 weeks of nafcillin for MSSA on October 30. Continue her current infusion set up. (4) Malnutrition: Current visit: Yes Status: Chronic Nutritional assessment requested. Await opinion regarding PEG tube placement. (5) Hypokalemia: Current visit: Yes Status: Acute Probable GI loss plus poor oral intake. Continue IV and attempts at oral supplementation and recheck potassium. (6) Hypomagnesemia: Current visit: Yes Status: Acute There may be a contribution from her chronic PPI use although this has not been consistent. Continue magnesium supplementations and recheck. (7) Tobacco abuse: Current visit: No Status: Chronic Topical nicotine replacement plus nicotine inhaler as needed. (8) Breast cancer: Current visit: Yes Status: Chronic Pharmacy has noted a significant drug interaction between bupropion and tamoxifen. She has had difficulty swallowing bupropion and so I am going to discontinue it. Continue tamoxifen. (9) Depression: Current visit: Yes Status: Chronic Drug interaction with tamoxifen with discontinuation of bupropion today. Continue venlafaxine at present dose, which can be increased to a maximum of 225 mg daily if depression is worsening. Subjective Interval history since last seen: Reports long-standing problems eating, difficulty swallowing some of her medications, particularly bupropion and venlafaxine. No hematemesis and no melanotic stool nonproductive no active cough. No chest pains. Somewhat diminished appetite but no nausea. [place] in an area with poor cell service, has not received calls from [facility] trying to set up first radiation oncology appointment. [facility] notes regarding endoscopic ultrasound and EGD reviewed, 9 cm circumferential mid thoracic esophageal lesion with possible local adenopathy. Exam Narrative Exam Narrative: Sitting up in bed she talks in full sentences and is not in any acute distress. She is eating very slowly. No JVD. No cervical adenopathy. Lungs somewhat distant breath sounds no crackles or wheeze. Regular heart rhythm no murmur S3 or S4. Nontender abdomen, bowel sounds normal. No mass appreciated no enlargement of liver or spleen appreciated. Thin extremities 1+ distal pulses. Symmetric movement of all extremities. No tremor. Objective Objective Clinical Data: Abnormal lab results 10/25/18 10/25/18 10/26/18 Range/Units 20:55 20:55 07:10 WBC 11.63 H (4.4-10.8) k/cumm RBC 3.41 L (4.00-5.20) m/cumm Hgb 10.6 L (12.0-15.5) g/dL Hct 31.1 L (36.0-46.0) % RDW 18.0 H (11.7-14.6) % Plt Count 502 H (130-400) x1000/uL Absolute Neutrophils 8.61 H (1.2-6.7) k/cumm Absolute Monocytes 0.79 H (0.11-0.7) k/cumm Potassium 2.1 L* 1.8 L* (3.5-5.1) mmol/L Anion Gap 11.1 H (3-11) mmol/L BUN 5 L (7-18) mg/dL Glucose 103 H (70-100) mg/dL Calcium 8.3 L (8.5-10.1) mg/dL Magnesium 1.0 L 1.4 L (1.8-2.4) mg/dL ALT 8 L 6 L (12-78) U/L Total Protein 6.1 L (6.4-8.2) g/dL Albumin 1.7 L 1.4 L (3.4-5.0) g/dL Vital Signs Temperature 36.8 C 10/26/18 11:40 Temperature Source Tympanic 10/26/18 11:40 Pulse 90 10/26/18 11:40 Pulse Rhythm Regular 10/26/18 01:19 Pulse 92 H 10/25/18 23:40 Respiratory Rate 17 10/26/18 11:40 Respiratory Effort Non-Labored 10/26/18 01:19 Respiratory Depth Normal 10/26/18 01:19 Respiratory Pattern Normal 10/26/18 01:19 Blood Pressure 138/86 10/26/18 11:40 Blood Pressure Position Supine 10/25/18 20:27 Pulse Oximetry 100 10/26/18 11:40 Oxygen Delivery Method Room Air 10/26/18 11:40 Oxygen Flow Rate 0 10/26/18 11:40 Pain Level 7 10/26/18 11:43 Intake & Output 10/25/18 10/26/18 10/26/18 23:59 11:59 23:59 Intake Total 100 / 100 1970 / 2170 200 / 2170 Output Total 350 / 350 Balance 100 / 100 1620 / 1820 200 / 1820 Weight 50.349 kg 50.349 kg 49.1 kg Intake: IV 100 / 100 1250 / 1450 200 / 1450 Oral 720 / 720 Output: Urine 350 / 350 Other: Urine Color Yellow Urine Appearance Clear Urine Odor Normal Comment Pt voids ind. Voiding Methods Toilet Laboratory Results WBC 11.63 k/cumm (4.4-10.8) H 10/25/18 20:55 RBC 3.41 m/cumm (4.00-5.20) L 10/25/18 20:55 Hgb 10.6 g/dL (12.0-15.5) L 10/25/18 20:55 Hct 31.1 % (36.0-46.0) L 10/25/18 20:55 MCV 91.2 fL (80-95) 10/25/18 20:55 MCH 31.1 pg (27.0-33.0) 10/25/18 20:55 MCHC 34.1 g/dL (32.0-36.0) 10/25/18 20:55 RDW 18.0 % (11.7-14.6) H 10/25/18 20:55 Plt Count 502 x1000/uL (130-400) H 10/25/18 20:55 MPV 8.5 fL (8.0-11.0) 10/25/18 20:55 Immature Gran % 0.3 10/25/18 20:55 Neutrophils % 74.0 10/25/18 20:55 Lymphocytes % 17.5 10/25/18 20:55 Monocytes % 6.8 10/25/18 20:55 Eosinophils % 1.1 10/25/18 20:55 Basophils % 0.3 10/25/18 20:55 Absolute Neutrophils 8.61 k/cumm (1.2-6.7) H 10/25/18 20:55 Absolute Lymphocytes 2.04 k/cumm (1.2-3.4) 10/25/18 20:55 Absolute Monocytes 0.79 k/cumm (0.11-0.7) H 10/25/18 20:55 Absolute Eosinophils 0.13 k/cumm (0.0-0.7) 10/25/18 20:55 Absolute Basophils 0.03 k/cumm (0.0-0.2) 10/25/18 20:55 Sodium 139 mmol/L (136-145) 10/26/18 07:10 Potassium 1.8 mmol/L (3.5-5.1) L* 10/26/18 07:10 Chloride 102 mmol/L (98-107) 10/26/18 07:10 Carbon Dioxide 26.0 mmol/L (21.0-32.0) 10/26/18 07:10 Anion Gap 11.0 mmol/L (3-11) 10/26/18 07:10 BUN 5 mg/dL (7-18) L 10/26/18 07:10 Creatinine 0.57 mg/dL (0.55-1.02) 10/26/18 07:10 Estimated GFR/1.73 m2 >= 60.00 (mL/min/1.73m2) 10/26/18 07:10 Glucose 100 mg/dL (70-100) 10/26/18 07:10 Calcium 8.3 mg/dL (8.5-10.1) L 10/26/18 07:10 Magnesium 1.4 mg/dL (1.8-2.4) L 10/26/18 07:10 Total Bilirubin 0.6 mg/dL (0.2-1.0) 10/26/18 07:10 AST 15 U/L (15-37) 10/26/18 07:10 ALT 6 U/L (12-78) L 10/26/18 07:10 Alkaline Phosphatase 86 U/L (46-116) 10/26/18 07:10 Troponin I < 0.02 ng/mL (0.00-0.06) 10/25/18 20:55 Total Protein 6.1 g/dL (6.4-8.2) L 10/26/18 07:10 Albumin 1.4 g/dL (3.4-5.0) L 10/26/18 07:10
--- NOTE | 2018-10-26 15:50 | W.NUTRFU ---
Date of service: 10/26/18 Time of Service: 15:50 Nutritional Follow up NOTE: Have recommended diet advanced to pureed to increase options. Recommend speech consult as patient would like to have some meats but will not eat them pureed. She states she will eat them chopped fine. Will continue to follow progress, PO intake, and weights. Will await decision on PEG tube. Time Spent in Nutritional Counseling and Treatment: PARDEEP
[2018-10-26 16:51] LABS: Potassium 2.3 mmol/L (3.5-5.1)
[2018-10-26] MEDS: POTASSIUM CHLORIDE 10 MEQ/100 ML BAG 70 MEQ IVPB ×3 (17:31→20:36)
[2018-10-26] MEDS: Heparin 5,000 UNITS/ML VIAL 5000 UNITS SC (17:31)
[2018-10-27] VITALS (10 sets, daily range): BP systolic 119–165; BP diastolic 70–90; PULSE 60–100; RESP 16–20; TEMP 36.5–37; O2SAT 97–100
[2018-10-27] MEDS: Heparin 5,000 UNITS/ML VIAL 5000 UNITS SC (02:33)
[2018-10-27] MEDS: Levothyroxine 50 MCG TAB PO (06:31)
[2018-10-27] MEDS: POTASSIUM CHLORIDE/D5-0.45NACL 1,000 ML 100 MEQ IV ×2 (06:31→21:20)
[2018-10-27 06:55] LABS: Anion Gap 11.5 mmol/L (3-11); BUN 4 mg/dL (7-18); CO2 23.5 mmol/L (21.0-32.0); CREATININE 0.58 mg/dL (0.55-1.02); Calcium 8.1 mg/dL (8.5-10.1); Chloride 102 mmol/L (98-107); Glucose 123 mg/dL (70-100); HCT 25.4 % (36.0-46.0); HGB 8.4 g/dL (12.0-15.5); Mean Corp. HGB Concentration 33.1 g/dL (32.0-36.0); Mean Corpuscular Hemoglobin 30.3 pg (27.0-33.0); Mean Corpuscular Volume 91.7 fL (80-95); Mean Platelet Volume 8.8 fL (8.0-11.0); Platelet Count 477 x1000/uL (130-400); RBC 2.77 m/cumm (4.00-5.20); Sodium 137 mmol/L (136-145); White Blood Cell Count 8.47 k/cumm (4.4-10.8)
[2018-10-27 07:04] LABS: Potassium 2.4 mmol/L (3.5-5.1)
[2018-10-27] MEDS: Nicotine 14 MG/24 HR PATCH TD (08:50)
[2018-10-27] MEDS: Venlafaxine 150 MG CAPCR PO (08:51)
[2018-10-27] MEDS: Folic Acid 1 MG TAB PO (08:51)
[2018-10-27] MEDS: Omeprazole 20 MG CAPCR 40 MG PO (08:51)
[2018-10-27] MEDS: Acetaminophen 500 MG TAB 1000 MG PO ×2 (08:51→16:29)
[2018-10-27] MEDS: Rosuvastatin 5 MG TAB PO (08:51)
[2018-10-27] MEDS: Thiamine 100 MG TAB PO (08:51)
[2018-10-27] MEDS: Multivitamin TAB 1 TAB PO (08:51)
[2018-10-27] MEDS: POTASSIUM CHLORIDE 10 MEQ/100 ML BAG 100 MEQ IVPB ×4 (08:54→12:25)
--- NOTE | 2018-10-27 08:56 | PDOC.CMPRO ---
- If Service Date Differs Date of service: 10/27/18 Time of Service: 08:56 Care Management Progress Note S/O: Cece is sitting in bed when CM visits this morning. She is engaged in conversation, makes good eye contact, and is talkative. Cece reports that she is sick of being in the hospital but otherwise is feeling ok. Cece has agreed to a palliative consult; she has seen Dr. Bland in the past and is open to a discussion. Anticipate patient will go to the OR tomorrow (10/28) for PEG placement, dependent on Cece's pending lab results. (K at 0641 was 2.4). Cece's hemoglobin and hematocrit have dropped and are low at 8.4 and 25.4. A: 53 year old female admitted with hypokalemia and hypomagnesemia with esophageal cancer. P: Cece will discharge home when medically ready per MD. Anticipate patient will discharge with no services vs. home health nursing services and follow up with her PCP. Cece will transport via private vehicle with her boyfriend, RHODA. CM will continue to offer support to patient, family, and care team regarding discharge planning and disposition.
--- NOTE | 2018-10-27 09:05 | CMPROGNOTE_ITS ---
- If Service Date Differs Date of service: 10/27/18 Time of Service: 08:56 Care Management Progress Note S/O: Cece is sitting in bed when CM visits this morning. She is engaged in conversation, makes good eye contact, and is talkative. Cece reports that she is sick of being in the hospital but otherwise is feeling ok. Cece has agreed to a palliative consult; she has seen Dr. Bland in the past and is open to a discussion. Anticipate patient will go to the OR tomorrow (10/28) for PEG place ment, dependent on Cece's pending lab results. (K at 0641 was 2.4). Cece's hemoglobin and hematocrit have dropped and are low at 8.4 and 25.4. A: 53 year old female admitted with hypokalemia and hypomagnesemia with esophageal cancer. P: Cece will discharge home when medically ready per MD. Anticipate patient will discharge with no services vs. home health nursing services and follow up with her PCP. Cece will transport via private vehicle with her boyfriend, RHODA. CM will continue to offer support to patient, family, and care team regarding discharge planning and disposition.
--- NOTE | 2018-10-27 09:29 | W.PM.PROGNOT ---
Date of Service Date of service: 10/27/18 Time of Service: : Assessment and Plan (1) Cachexia: Start date: 10/27/18 Start time: : Current visit: Yes Status: Acute feeding tube to increase nutrition (2) Squamous cell carcinoma of esophagus: Start date: 10/27/18 Start time: Current visit: Yes Status: Acute feeding tube to be done so pt can precede with tx (3) Hypokalemia: Start date: 10/27/18 Start time: : Current visit: Yes Status: Acute 2.4 this am pt to have the replacements through her picc line to increase rate long dw Dr Mohan and Anesthesia about case cardiac issues are not present as per her history and previous charts stress test and echo recently are wnl if >3.2 will cont with plan and book for the am PEG vs open g-tube Subjective Patient reports: no new complaints Objective Objective Clinical Data: Abnormal lab results 10/26/18 10/27/18 10/27/18 Range/Units 16:14 06:41 06:41 RBC 2.77 L (4.00-5.20) m/cumm Hgb 8.4 L D (12.0-15.5) g/dL Hct 25.4 L (36.0-46.0) % RDW 18.0 H (11.7-14.6) % Plt Count 477 H (130-400) x1000/uL Potassium 2.3 L* 2.4 L* (3.5-5.1) mmol/L Anion Gap 11.5 H (3-11) mmol/L BUN 4 L (7-18) mg/dL Glucose 123 H (70-100) mg/dL Calcium 8.1 L (8.5-10.1) mg/dL Vital Signs Temperature 36.8 C 10/27/18 07:40 Temperature Source Tympanic 10/27/18 07:40 Pulse 74 10/27/18 07:40 Pulse Rhythm Regular 10/27/18 02:15 Pulse 92 H 10/25/18 23:40 Respiratory Rate 18 10/27/18 07:40 Respiratory Effort 10/27/18 02:15 Respiratory Depth Normal 10/27/18 02:15 Respiratory Pattern Normal 10/27/18 02:15 Blood Pressure 165/74 H 10/27/18 07:40 Blood Pressure Position Supine 10/25/18 20:27 Pulse Oximetry 98 10/27/18 07:40 Oxygen Delivery Method Room Air 10/27/18 07:40 Oxygen Flow Rate 0 10/27/18 07:40 Pain Level 0 10/27/18 02:15 Intake & Output 10/26/18 10/26/18 10/27/18 11:59 23:59 11:59 Intake Total 1980 / 3570 1590 / 3570 1230 / 1230 Output Total 350 / 350 Balance 1630 / 3220 1590 / 3220 1230 / 1230 Weight 50.349 kg 49.1 kg 50.7 kg Intake: IV 1260 / 2730 1470 / 2730 990 / 990 Oral 720 / 840 120 / 840 240 / 240 Output: Urine 350 / 350 Other: Urine Color Yellow Yellow Urine Appearance Clear Clear Clear Urine Odor Normal Normal Comment Pt voids ind. LARGE VOID IN TOILET AND PT FLUSHED Stool Size Small Voiding Methods Toilet Toilet Toilet Laboratory Results WBC 8.47 k/cumm (4.4-10.8) 10/27/18 06:41 RBC 2.77 m/cumm (4.00-5.20) L 10/27/18 06:41 Hgb 8.4 g/dL (12.0-15.5) L D 10/27/18 06:41 Hct 25.4 % (36.0-46.0) L 10/27/18 06:41 MCV 91.7 fL (80-95) 10/27/18 06:41 MCH 30.3 pg (27.0-33.0) 10/27/18 06:41 MCHC 33.1 g/dL (32.0-36.0) 10/27/18 06:41 RDW 18.0 % (11.7-14.6) H 10/27/18 06:41 Plt Count 477 x1000/uL (130-400) H 10/27/18 06:41 MPV 8.8 fL (8.0-11.0) 10/27/18 06:41 Immature Gran % 0.3 10/25/18 20:55 Neutrophils % 74.0 10/25/18 20:55 Lymphocytes % 17.5 10/25/18 20:55 Monocytes % 6.8 10/25/18 20:55 Eosinophils % 1.1 10/25/18 20:55 Basophils % 0.3 10/25/18 20:55 Absolute Neutrophils 8.61 k/cumm (1.2-6.7) H 10/25/18 20:55 Absolute Lymphocytes 2.04 k/cumm (1.2-3.4) 10/25/18 20:55 Absolute Monocytes 0.79 k/cumm (0.11-0.7) H 10/25/18 20:55 Absolute Eosinophils 0.13 k/cumm (0.0-0.7) 10/25/18 20:55 Absolute Basophils 0.03 k/cumm (0.0-0.2) 10/25/18 20:55 Sodium 137 mmol/L (136-145) 10/27/18 06:41 Potassium 2.4 mmol/L (3.5-5.1) L* 10/27/18 06:41 Chloride 102 mmol/L (98-107) 10/27/18 06:41 Carbon Dioxide 23.5 mmol/L (21.0-32.0) 10/27/18 06:41 Anion Gap 11.5 mmol/L (3-11) H 10/27/18 06:41 BUN 4 mg/dL (7-18) L 10/27/18 06:41 Creatinine 0.58 mg/dL (0.55-1.02) 10/27/18 06:41 Estimated GFR/1.73 m2 >= 60.00 (mL/min/1.73m2) 10/27/18 06:41 Glucose 123 mg/dL (70-100) H 10/27/18 06:41 Calcium 8.1 mg/dL (8.5-10.1) L 10/27/18 06:41 Magnesium 1.4 mg/dL (1.8-2.4) L 10/26/18 07:10 Total Bilirubin 0.6 mg/dL (0.2-1.0) 10/26/18 07:10 AST 15 U/L (15-37) 10/26/18 07:10 ALT 6 U/L (12-78) L 10/26/18 07:10 Alkaline Phosphatase 86 U/L (46-116) 10/26/18 07:10 Troponin I < 0.02 ng/mL (0.00-0.06) 10/25/18 20:55 Total Protein 6.1 g/dL (6.4-8.2) L 10/26/18 07:10 Albumin 1.4 g/dL (3.4-5.0) L 10/26/18 07:10
--- NOTE | 2018-10-27 11:50 | W.PM.PROGNOT ---
Date of Service Date of service: 10/27/18 Time of Service: 11:58 Assessment and Plan (1) Cachexia: Current visit: Yes Status: Acute Continues with marginal oral intake. Await PEG tube placement tomorrow and then initiation of supplemental tube feedings. I do not find any history of coronary artery disease or plans for revascularization looking through her [facility] and [facility] records. (2) Squamous cell carcinoma of esophagus: Current visit: Yes Status: Acute Continue dysphasia but no pain. No overt bleeding although dropping hemoglobin is concerned that there might still be some oozing from this. Nutritional support as above and await outcome of planned oncology visits. Palliative care consultation placed. (3) Bacteremia: Current visit: Yes Status: Acute Complete 6 weeks of nafcillin for MSSA on October 30. No signs of any breakthrough infection. (4) Malnutrition: Current visit: Yes Status: Chronic Awaiting PEG tube placement and initiation of tube feeding supplementation. (5) Hypokalemia: Current visit: Yes Status: Acute Probable GI loss plus poor oral intake. Slow improvement. Continue oral and IV supplementation and recheck labs. (6) Hypomagnesemia: Current visit: Yes Status: Acute Received an additional 2 g of magnesium yesterday, recheck magnesium with next blood draw later today. (7) Tobacco abuse: Current visit: No Status: Chronic Topical nicotine replacement continues, prefers not to use the nicotine inhaler as she thinks it gives her headache. (8) Breast cancer: Current visit: Yes Status: Chronic Pharmacy has noted a significant drug interaction between bupropion and tamoxifen. She has not been receiving tamoxifen here as its nonformulary and she did not bring her medications with her. In the big picture I do not think this is a critical issue. (9) Depression: Current visit: Yes Status: Chronic Minimizes her depressive symptoms. Supportive listening. No change in venlafaxine dose at this time. (10) Anemia: Current visit: Yes Status: Chronic It is possible if not probable she is continuing to have some GI blood loss. The drop in hemoglobin may partially be due to rehydration and equilibration. No grossly melanotic or bloody stools and has not had any hematemesis. Hemodynamically stable. Monitor hemoglobin and hematocrit. Check stool for occult blood. Continue PPI. Subjective Interval history since last seen: Still has difficulty swallowing, poor appetite. No chest pain. No nausea. I queried her about her report to Dr. Cornejo about planned coronary revascularization? I find nothing in her [facility] records indicating any known history of heart disease. She did have vascular appointment this fall with evidence of significant lower extremity occlusive disease, very low ABIs in both lower extremities. She indicates to me that she had narrowing of an artery somewhere in her body, she was not sure where. I think she misunderstood the problem and has aorto iliac disease but not coronary artery disease to the best of my knowledge. She had normal EF on echocardiogram last month (echo performed because of MSSA bacteremia, no endocarditis by transthoracic echo). Her potassium level is slowly coming up. Telemetry has shown no dysrhythmias, sinus rhythm only. Denies any leg numbness or pain or claudication symptoms although has not been walking much. Does not miss cigarettes. Thinks that the Nicotrol inhaler is causing a bit of a headache. Acknowledges that she feels a little down in the dumps but attributes this to the circumstances and is not looking for more medication. Concerned that her significant other has expressed his discomfort in trying to help her manage her illnesses and in particular tube feedings, once discharged from the hospital. Exam Narrative Exam Narrative: Uncomfortable eating, take a bite, weights a bit and then has some minor discomfort and occasional belching. Has not been febrile. Blood pressure is a little bit labile, oxygen saturation normal on room air. Weight stable. No scleral icterus. No JVD. Speech clear. Lungs a little distant, no wheeze or crackles. Regular heart rhythm no S3-S4 or murmur. Normal bowel sounds with no gastric tenderness. Cannot feel a pulse in either feet but they are warm. PICC line in the left arm with no erythema at the skin entry site. Independent with transferring in bed. Objective Objective Clinical Data: Abnormal lab results 10/26/18 10/27/18 10/27/18 Range/Units 16:14 06:41 06:41 RBC 2.77 L (4.00-5.20) m/cumm Hgb 8.4 L D (12.0-15.5) g/dL Hct 25.4 L (36.0-46.0) % RDW 18.0 H (11.7-14.6) % Plt Count 477 H (130-400) x1000/uL Potassium 2.3 L* 2.4 L* (3.5-5.1) mmol/L Anion Gap 11.5 H (3-11) mmol/L BUN 4 L (7-18) mg/dL Glucose 123 H (70-100) mg/dL Calcium 8.1 L (8.5-10.1) mg/dL Vital Signs Temperature 36.8 C 10/27/18 07:40 Temperature Source Tympanic 10/27/18 07:40 Pulse 74 10/27/18 07:40 Pulse Rhythm Regular 10/27/18 02:15 Pulse 92 H 10/25/18 23:40 Respiratory Rate 18 10/27/18 07:40 Respiratory Effort 10/27/18 02:15 Respiratory Depth Normal 10/27/18 02:15 Respiratory Pattern Normal 10/27/18 02:15 Blood Pressure 165/74 H 10/27/18 07:40 Blood Pressure Position Supine 10/25/18 20:27 Pulse Oximetry 97 10/27/18 09:05 Oxygen Delivery Method Room Air 10/27/18 09:05 Oxygen Flow Rate 0 10/27/18 09:05 Pain Level 0 10/27/18 02:15 Intake & Output 10/26/18 10/26/18 10/27/18 11:59 23:59 11:59 Intake Total 1980 / 3570 1590 / 3570 1430 / 1430 Output Total 350 / 350 Balance 1630 / 3220 1590 / 3220 1430 / 1430 Weight 50.349 kg 49.1 kg 50.7 kg Intake: IV 1260 / 2730 1470 / 2730 1190 / 1190 Oral 720 / 840 120 / 840 240 / 240 Output: Urine 350 / 350 Other: Urine Color Yellow Yellow Urine Appearance Clear Clear Clear Urine Odor Normal None Comment Pt voids ind. LARGE VOID IN TOILET AND PT FLUSHED Stool Size Small Voiding Methods Toilet Toilet Toilet Laboratory Results WBC 8.47 k/cumm (4.4-10.8) 10/27/18 06:41 RBC 2.77 m/cumm (4.00-5.20) L 10/27/18 06:41 Hgb 8.4 g/dL (12.0-15.5) L D 10/27/18 06:41 Hct 25.4 % (36.0-46.0) L 10/27/18 06:41 MCV 91.7 fL (80-95) 10/27/18 06:41 MCH 30.3 pg (27.0-33.0) 10/27/18 06:41 MCHC 33.1 g/dL (32.0-36.0) 10/27/18 06:41 RDW 18.0 % (11.7-14.6) H 10/27/18 06:41 Plt Count 477 x1000/uL (130-400) H 10/27/18 06:41 MPV 8.8 fL (8.0-11.0) 10/27/18 06:41 Immature Gran % 0.3 10/25/18 20:55 Neutrophils % 74.0 10/25/18 20:55 Lymphocytes % 17.5 10/25/18 20:55 Monocytes % 6.8 10/25/18 20:55 Eosinophils % 1.1 10/25/18 20:55 Basophils % 0.3 10/25/18 20:55 Absolute Neutrophils 8.61 k/cumm (1.2-6.7) H 10/25/18 20:55 Absolute Lymphocytes 2.04 k/cumm (1.2-3.4) 10/25/18 20:55 Absolute Monocytes 0.79 k/cumm (0.11-0.7) H 10/25/18 20:55 Absolute Eosinophils 0.13 k/cumm (0.0-0.7) 10/25/18 20:55 Absolute Basophils 0.03 k/cumm (0.0-0.2) 10/25/18 20:55 Sodium 137 mmol/L (136-145) 10/27/18 06:41 Potassium 2.4 mmol/L (3.5-5.1) L* 10/27/18 06:41 Chloride 102 mmol/L (98-107) 10/27/18 06:41 Carbon Dioxide 23.5 mmol/L (21.0-32.0) 10/27/18 06:41 Anion Gap 11.5 mmol/L (3-11) H 10/27/18 06:41 BUN 4 mg/dL (7-18) L 10/27/18 06:41 Creatinine 0.58 mg/dL (0.55-1.02) 10/27/18 06:41 Estimated GFR/1.73 m2 >= 60.00 (mL/min/1.73m2) 10/27/18 06:41 Glucose 123 mg/dL (70-100) H 10/27/18 06:41 Calcium 8.1 mg/dL (8.5-10.1) L 10/27/18 06:41 Magnesium 1.4 mg/dL (1.8-2.4) L 10/26/18 07:10 Total Bilirubin 0.6 mg/dL (0.2-1.0) 10/26/18 07:10 AST 15 U/L (15-37) 10/26/18 07:10 ALT 6 U/L (12-78) L 10/26/18 07:10 Alkaline Phosphatase 86 U/L (46-116) 10/26/18 07:10 Troponin I < 0.02 ng/mL (0.00-0.06) 10/25/18 20:55 Total Protein 6.1 g/dL (6.4-8.2) L 10/26/18 07:10 Albumin 1.4 g/dL (3.4-5.0) L 10/26/18 07:10
[2018-10-27 14:24] LABS: Magnesium 0.9 mg/dL (1.8-2.4); Potassium 3.1 mmol/L (3.5-5.1)
[2018-10-27 14:26] LABS: HCT 24.9 % (36.0-46.0); HGB 8.2 g/dL (12.0-15.5)
--- NOTE | 2018-10-27 15:52 | CHAPLAIN ---
I visited with Cece yesterday (10/26). She was sitting up in bed and open to conversation, but provided mostly one word answers. She told me that her boyfriend got me through my breast cancer so I'm hoping he can get me through this. Cece now has esophageal cancer. According to [facility] Stuart' notes, today, while Dr. Bland and Gemma were talking with Cece for Palliative Care consult, Cece's boyfriend arrived, with all her stuff to let her know that he can no longer take care of her. Dr. Bland and Gemma discussed other housing options with Cece including [facility] and a stay at [facility].
[2018-10-27] MEDS: MAGNESIUM SULFATE 4 GM/100 ML BAG IVPB (16:18)
[2018-10-27] MEDS: Ondansetron 4 MG/2 ML VIAL IVP (18:04)
--- NOTE | 2018-10-27 20:32 | W.PM.PROGNOT ---
Date of Service Date of service: 10/27/18 Time of Service: 20:32 Assessment and Plan (1) Squamous cell carcinoma of esophagus: Start date: 10/27/18 Start time: 20:33 Current visit: Yes Status: Acute for feeding tube in am pt aware k currently 3.1 awaiting morning labs to book for surgery (2) Cachexia: Start date: 10/27/18 Start time: 20:33 Current visit: Yes Status: Acute feeding tube in am will get consent then Objective Objective Clinical Data: Abnormal lab results 10/27/18 10/27/18 10/27/18 Range/Units 06:41 06:41 14:08 RBC 2.77 L (4.00-5.20) m/cumm Hgb 8.4 L D (12.0-15.5) g/dL Hct 25.4 L (36.0-46.0) % RDW 18.0 H (11.7-14.6) % Plt Count 477 H (130-400) x1000/uL Potassium 2.4 L* 3.1 L (3.5-5.1) mmol/L Anion Gap 11.5 H (3-11) mmol/L BUN 4 L (7-18) mg/dL Glucose 123 H (70-100) mg/dL Calcium 8.1 L (8.5-10.1) mg/dL Magnesium 0.9 L (1.8-2.4) mg/dL 10/27/18 Range/Units 14:08 RBC (4.00-5.20) m/cumm Hgb 8.2 L (12.0-15.5) g/dL Hct 24.9 L (36.0-46.0) % RDW (11.7-14.6) % Plt Count (130-400) x1000/uL Potassium (3.5-5.1) mmol/L Anion Gap (3-11) mmol/L BUN (7-18) mg/dL Glucose (70-100) mg/dL Calcium (8.5-10.1) mg/dL Magnesium (1.8-2.4) mg/dL Vital Signs Temperature 36.6 C 10/27/18 20:28 Temperature Source Tympanic 10/27/18 20:28 Pulse 91 H 10/27/18 20:28 Pulse Rhythm Regular 10/27/18 15:56 Pulse 92 H 10/25/18 23:40 Respiratory Rate 20 10/27/18 20:28 Respiratory Effort Non-Labored 10/27/18 15:56 Respiratory Depth Normal 10/27/18 15:56 Respiratory Pattern Normal 10/27/18 15:56 Blood Pressure 119/82 10/27/18 20:28 Blood Pressure Position Supine 10/25/18 20:27 Pulse Oximetry 99 10/27/18 20:28 Oxygen Delivery Method Room Air 10/27/18 20:28 Oxygen Flow Rate 0 10/27/18 20:28 Fraction of Inspired Oxygen (FIO2) 100 10/27/18 17:00 Pain Level 0 10/27/18 02:15 Intake & Output 10/26/18 10/27/18 10/27/18 23:59 11:59 23:59 Intake Total 1590 / 3570 1778.333 / 1987.333 210 / 1987.333 Balance 1590 / 3220 1778.333 / 1987.333 210 / 1987.333 Weight 49.1 kg 50.7 kg Intake: IV 1470 / 2730 1538.333 / 1748.333 210 / 1748.333 Oral 120 / 840 240 / 240 Other: Urine Color Yellow Urine Appearance Clear Clear Clear Urine Odor None Comment LARGE VOID IN TOILET AND PT FLUSHED Stool Size Small Emesis Description Undigested Food Voiding Methods Toilet Toilet Laboratory Results WBC 8.47 k/cumm (4.4-10.8) 10/27/18 06:41 RBC 2.77 m/cumm (4.00-5.20) L 10/27/18 06:41 Hgb 8.2 g/dL (12.0-15.5) L 10/27/18 14:08 Hct 24.9 % (36.0-46.0) L 10/27/18 14:08 MCV 91.7 fL (80-95) 10/27/18 06:41 MCH 30.3 pg (27.0-33.0) 10/27/18 06:41 MCHC 33.1 g/dL (32.0-36.0) 10/27/18 06:41 RDW 18.0 % (11.7-14.6) H 10/27/18 06:41 Plt Count 477 x1000/uL (130-400) H 10/27/18 06:41 MPV 8.8 fL (8.0-11.0) 10/27/18 06:41 Immature Gran % 0.3 10/25/18 20:55 Neutrophils % 74.0 10/25/18 20:55 Lymphocytes % 17.5 10/25/18 20:55 Monocytes % 6.8 10/25/18 20:55 Eosinophils % 1.1 10/25/18 20:55 Basophils % 0.3 10/25/18 20:55 Absolute Neutrophils 8.61 k/cumm (1.2-6.7) H 10/25/18 20:55 Absolute Lymphocytes 2.04 k/cumm (1.2-3.4) 10/25/18 20:55 Absolute Monocytes 0.79 k/cumm (0.11-0.7) H 10/25/18 20:55 Absolute Eosinophils 0.13 k/cumm (0.0-0.7) 10/25/18 20:55 Absolute Basophils 0.03 k/cumm (0.0-0.2) 10/25/18 20:55 Sodium 137 mmol/L (136-145) 10/27/18 06:41 Potassium 3.1 mmol/L (3.5-5.1) L 10/27/18 14:08 Chloride 102 mmol/L (98-107) 10/27/18 06:41 Carbon Dioxide 23.5 mmol/L (21.0-32.0) 10/27/18 06:41 Anion Gap 11.5 mmol/L (3-11) H 10/27/18 06:41 BUN 4 mg/dL (7-18) L 10/27/18 06:41 Creatinine 0.58 mg/dL (0.55-1.02) 10/27/18 06:41 Estimated GFR/1.73 m2 >= 60.00 (mL/min/1.73m2) 10/27/18 06:41 Glucose 123 mg/dL (70-100) H 10/27/18 06:41 Calcium 8.1 mg/dL (8.5-10.1) L 10/27/18 06:41 Magnesium 0.9 mg/dL (1.8-2.4) L 10/27/18 14:08 Total Bilirubin 0.6 mg/dL (0.2-1.0) 10/26/18 07:10 AST 15 U/L (15-37) 10/26/18 07:10 ALT 6 U/L (12-78) L 10/26/18 07:10 Alkaline Phosphatase 86 U/L (46-116) 10/26/18 07:10 Troponin I < 0.02 ng/mL (0.00-0.06) 10/25/18 20:55 Total Protein 6.1 g/dL (6.4-8.2) L 10/26/18 07:10 Albumin 1.4 g/dL (3.4-5.0) L 10/26/18 07:10
[2018-10-27] MEDS: Mylanta Suspension 30 ML CUP PO (23:45)
[2018-10-28] VITALS (13 sets, daily range): BP systolic 102–164; BP diastolic 44–88; PULSE 80–109; RESP 11–20; TEMP 36.4–38.1; O2SAT 97–100
[2018-10-28] MEDS: Levothyroxine 50 MCG TAB PO (06:21)
[2018-10-28] MEDS: POTASSIUM CHLORIDE/D5-0.45NACL 1,000 ML 100 MEQ IV ×2 (06:38→20:37)
[2018-10-28 06:50] LABS: HCT 25.5 % (36.0-46.0); HGB 8.4 g/dL (12.0-15.5); Mean Corp. HGB Concentration 32.9 g/dL (32.0-36.0); Mean Corpuscular Hemoglobin 30.4 pg (27.0-33.0); Mean Corpuscular Volume 92.4 fL (80-95); Mean Platelet Volume 8.4 fL (8.0-11.0); Platelet Count 495 x1000/uL (130-400); RBC 2.76 m/cumm (4.00-5.20); RBC Distribution Width 18.3 % (11.7-14.6); White Blood Cell Count 8.17 k/cumm (4.4-10.8)
[2018-10-28 07:02] LABS: BUN 3 mg/dL (7-18); Calcium 8.3 mg/dL (8.5-10.1); Chloride 103 mmol/L (98-107); Glucose 127 mg/dL (70-100); Magnesium 1.7 mg/dL (1.8-2.4); Potassium 3.2 mmol/L (3.5-5.1); Sodium 137 mmol/L (136-145)
[2018-10-28] MEDS: Lactated Ringers 1,000 ML 100 ML IV (09:36)
--- NOTE | 2018-10-28 09:40 | PGE_ITS ---
Date of Service Date of service: 10/28/18 Time of Service: 09:31 Assessment and Plan (1) Cachexia: Current visit: Yes Status: Acute Increasing dysphasia making more probable that without PEG tube she will not tolerate any form of treatment for his esophageal cancer. Scheduled for PEG tube placement this morning. (2) Squamous cell carcinoma of esophagus: Current visit: Yes Status: Acute No pain, slowly worsening dysphasia. Has first radiation oncology appointment November 01. (3) Bacteremia: Current visit: Yes Status: Acute Awaiting callback from [facility] infectious disease to confirm that we are wished with treatment for her MSSA bacteremia when her present supply of nafcillin runs out. (4) Malnutrition: Current visit: Yes Status: Chronic Jevity tube feedings will be initiated as recommended by nutrition after confirmation that we can use her PEG tube. (5) Hypokalemia: Current visit: Yes Status: Acute Improving with IV and oral potassium. Continue maintenance fluids with centimeters and will likely supplement via her gastrostomy tube once it is deemed functionable. (6) Hypomagnesemia: Current visit: Yes Status: Acute After return from the OR, IV magnesium will be administered again, continue to monitor magnesium level. (7) Tobacco abuse: Current visit: No Status: Chronic Topical nicotine replacement continues, prefers not to use the nicotine inhaler as she thinks it gives her headache. (8) Depression: Current visit: Yes Status: Chronic Additional stressors with uncertain housing and turmoil in relationship with boyfriend. Supportive listening. Venlafaxine to continue and will administer via G-tube. (9) Anemia: Current visit: No Status: Chronic Stool occult blood negative. At least part of her anemia can be attributed to re-equilibration with rehydration and perhaps anemia of chronic disease? Iron levels when checked last month were normal. Continue to monitor hemoglobin episodically. Subjective Interval history since last seen: Continues to have difficulty swallowing, a little bit more belching and then over the past several days, no hematemesis. Nauseated last evening, some relief after Zofran. Heme-negative stool. No cough or wheeze. No complaints of abdominal pain. Has not been febrile. Discussion with her boyfriend yesterday regarding management of feeding tube and by the end of the conversation I had a sense that he was not as intimidated by this prospect. Ms. Welch is still uncertain as to whether or not she will be returning home with her boyfriend or not, fearful that he may feel overwhelmed and insist that she leave. Potassium and magnesium level both better but still not normal. Call placed to infectious disease at [facility] to confirm that once she completes her present supply of nafcillin, treatment for her MSSA bacteremia is done; waiting to get call back for confirmation. Exam Narrative Exam Narrative: Afebrile, blood pressure 130s over 80s SaO2 normal on room air. Looks a little tired and somewhat worried. No JVD or cervical adenopathy. Lungs clear. Regular heart rhythm no murmur S3 or S4. Active bowel sounds heard into the mid chest. Nontender epigastric area. No edema at the ankles, feet warm, cannot feel dorsalis pedis pulses. Symmetric movement of all extremities. Objective Objective Clinical Data: Abnormal lab results 10/27/18 10/27/18 10/28/18 Range/Units 14:08 14:08 06:28 RBC (4.00-5.20) m/cumm Hgb 8.2 L (12.0-15.5) g/dL Hct 24.9 L (36.0-46.0) % RDW (11.7-14.6) % Plt Count (130-400) x1000/uL Potassium 3.1 L 3.2 L (3.5-5.1) mmol/L BUN 3 L (7-18) mg/dL Glucose 127 H (70-100) mg/dL Calcium 8.3 L (8.5-10.1) mg/dL Magnesium 0.9 L 1.7 L (1.8-2.4) mg/dL 10/28/18 Range/Units 06:28 RBC 2.76 L (4.00-5.20) m/cumm Hgb 8.4 L (12.0-15.5) g/dL Hct 25.5 L (36.0-46.0) % RDW 18.3 H (11.7-14.6) % Plt Count 495 H (130-400) x1000/uL Potassium (3.5-5.1) mmol/L BUN (7-18) mg/dL Glucose (70-100) mg/dL Calcium (8.5-10.1) mg/dL Magnesium (1.8-2.4) mg/dL Vital Signs Temperature 36.9 C 10/28/18 07:33 Temperature Source Temporal Artery Scan 10/28/18 07:33 Pulse 94 H 10/28/18 07:33 Pulse Rhythm Regular 10/28/18 08:14 Pulse 92 H 10/25/18 23:40 Respiratory Rate 17 10/28/18 07:33 Respiratory Effort Non-Labored 10/28/18 08:14 Respiratory Depth Normal 10/28/18 08:14 Respiratory Pattern Normal 10/28/18 08:14 Blood Pressure 138/88 10/28/18 07:33 Blood Pressure Position Supine 10/25/18 20:27 Pulse Oximetry 99 10/28/18 07:33 Oxygen Delivery Method Room Air 10/28/18 07:33 Oxygen Flow Rate 0 10/28/18 07:33 Fraction of Inspired Oxygen (FIO2) 100 10/27/18 17:00 Pain Level 0 10/28/18 03:40 Comment 10/28/18 03:40 Intake & Output 10/27/18 10/27/18 10/28/18 11:59 23:59 11:59 Intake Total 1778.333 / 3040.000 1261.667 / 3040.000 945 / 945 Output Total 500 / 500 2150 / 2150 Balance 1778.333 / 2540.000 761.667 / 2540.000 -1205 / -1205 Weight 50.7 kg 52.2 kg Intake: IV 1538.333 / 2600.000 1061.667 / 2600.000 930 / 930 Oral 240 / 440 200 / 440 15 / 15 Output: Urine 500 / 500 2150 / 2150 Other: Urine Color Yellow Yellow Yellow Urine Appearance Clear Clear Clear Urine Odor None Normal Normal Comment LARGE VOID IN TOILET AND PT FLUSHED USED CHEMO PRECAUTIONS WHEN DUMPING URINE- PURPLE NITRILE GLOVES, PLASTIC GOWN AND PLACED CHUX OVER TOILET PRIOR TO FLUSHING X 2. Stool Occult Blood Negative Stool Size Small Small Stool Characteristics Soft Liquid Emesis Description Undigested Food Voiding Methods Toilet Toilet Toilet Laboratory Results WBC 8.17 k/cumm (4.4-10.8) 10/28/18 06:28 RBC 2.76 m/cumm (4.00-5.20) L 10/28/18 06:28 Hgb 8.4 g/dL (12.0-15.5) L 10/28/18 06:28 Hct 25.5 % (36.0-46.0) L 10/28/18 06:28 MCV 92.4 fL (80-95) 10/28/18 06:28 MCH 30.4 pg (27.0-33.0) 10/28/18 06:28 MCHC 32.9 g/dL (32.0-36.0) 10/28/18 06:28 RDW 18.3 % (11.7-14.6) H 10/28/18 06:28 Plt Count 495 x1000/uL (130-400) H 10/28/18 06:28 MPV 8.4 fL (8.0-11.0) 10/28/18 06:28 Immature Gran % 0.3 10/25/18 20:55 Neutrophils % 74.0 10/25/18 20:55 Lymphocytes % 17.5 10/25/18 20:55 Monocytes % 6.8 10/25/18 20:55 Eosinophils % 1.1 10/25/18 20:55 Basophils % 0.3 10/25/18 20:55 Absolute Neutrophils 8.61 k/cumm (1.2-6.7) H 10/25/18 20:55 Absolute Lymphocytes 2.04 k/cumm (1.2-3.4) 10/25/18 20:55 Absolute Monocytes 0.79 k/cumm (0.11-0.7) H 10/25/18 20:55 Absolute Eosinophils 0.13 k/cumm (0.0-0.7) 10/25/18 20:55 Absolute Basophils 0.03 k/cumm (0.0-0.2) 10/25/18 20:55 Sodium 137 mmol/L (136-145) 10/28/18 06:28 Potassium 3.2 mmol/L (3.5-5.1) L 10/28/18 06:28 Chloride 103 mmol/L (98-107) 10/28/18 06:28 Carbon Dioxide 23.0 mmol/L (21.0-32.0) 10/28/18 06:28 Anion Gap 11.0 mmol/L (3-11) 10/28/18 06:28 BUN 3 mg/dL (7-18) L 10/28/18 06:28 Creatinine 0.60 mg/dL (0.55-1.02) 10/28/18 06:28 Estimated GFR/1.73 m2 >= 60.00 (mL/min/1.73m2) 10/28/18 06:28 Glucose 127 mg/dL (70-100) H 10/28/18 06:28 Calcium 8.3 mg/dL (8.5-10.1) L 10/28/18 06:28 Magnesium 1.7 mg/dL (1.8-2.4) L 10/28/18 06:28 Total Bilirubin 0.6 mg/dL (0.2-1.0) 10/26/18 07:10 AST 15 U/L (15-37) 10/26/18 07:10 ALT 6 U/L (12-78) L 10/26/18 07:10 Alkaline Phosphatase 86 U/L (46-116) 10/26/18 07:10 Troponin I < 0.02 ng/mL (0.00-0.06) 10/25/18 20:55 Total Protein 6.1 g/dL (6.4-8.2) L 10/26/18 07:10 Albumin 1.4 g/dL (3.4-5.0) L 10/26/18 07:10
--- NOTE | 2018-10-28 10:27 | W.PM.OP ---
Date of service: 10/28/18 Time of Service: 10:27 Operative Note DATE OF PROCEDURE: 10/28/18 PRE-OP DIAGNOSIS: esophageal tumor, malnutrition POST-OP DIAGNOSIS: same PROCEDURE: PEG SURGEON: Marck Cornejo III MANAGEMENT ASSISTANT: Mai Cerna ANESTHESIA: GETA ESTIMATED BLOOD LOSS: 2 PATHOLOGY: none sent COMPLICATIONS: None Patient was transported to: floor Patient's condition: stable Implants: gastrostomy tube Indications: enteral feeds for her near obstructing esphageal tumor and malnutrition Findings: large tumor seen the scope was able to pass by thube was placed and secured at 3-2.5 at the skin Procedure Description: pt was consented and marked preop. Pre op time out done. pt had general anesthisia in a supine position on the or table. the egd was done at this point and the scope advanced. a large lumen obscuring tumor was seen. the scope was slowly advanced and was able to get by. the stomach was inspected and scope passed distally into the duodenum. no distal obstruction seen. the scope pulled back and the abd was preped and draped in a sterile fashion. a great light reflex and palpatory confirmation of the placement was made. the needlle was introduced through the abd wall into the stomach. the guide wire was placed and grasped. this was brought back through the mouth. it was attached to the tube and pulled back through the abd wall. it went to 2.5cm. the button was placed on it and sterile dressing applied. pt zander procedure well. extubated and moved to pacu. post of debreifing was done counts were correct.
--- NOTE | 2018-10-28 10:36 | ROE_ITS ---
Date of service: 10/28/18 Time of Service: 10:27 Operative Note DATE OF PROCEDURE: 10/28/18 PRE-OP DIAGNOSIS: esophageal tumor, malnutrition POST-OP DIAGNOSIS: same PROCEDURE: PEG SURGEON: Marck Cornejo III WAX BALL KNOCK OUT WORKER: Mai Cerna ANESTHESIA: GETA ESTIMATED BLOOD LOSS: 2 PATHOLOGY: none sent COMPLICATIONS: None Patient was transported to: floor Patient's condition: stable Implants: gastrostomy tube Indications: enteral feeds for her near obstructing esphageal tumor and malnutrition Findings: large tumor seen the scope was able to pass by thube was placed and secured at 3-2.5 at the skin Procedure Description: pt was consented and marked preop. Pre op time out done. pt had general anesthisia in a supine position on the or table. the egd was done at this point and the scope advanced. a large lumen obscuring tumor was seen. the scope was slowly advanced and was able to get by. the stomach was inspected and scope passed distally into the duodenum. no distal obstruction seen. the scope pulled back and the abd was preped and draped in a sterile fashion. a great light reflex and palpatory confirmation of the placement was made. the needlle was introduced through the abd wall into the stomach. the guide wire was placed and grasped. this was brought back through the mouth. it was attached to the tube and pulled back through the abd wall. it went to 2.5cm. the button was placed on it and sterile dressing applied. pt zander procedure well. extubated and moved to pacu. post of debreifing was done counts were correct.
[2018-10-28] MEDS: fentaNYL 100 MCG/2 ML VIAL IVP ×2 (10:42→11:09)
[2018-10-28] MEDS: MAGNESIUM SULFATE 1 GM/100 ML BAG IVPB (12:16)
[2018-10-28] MEDS: Venlafaxine 150 MG CAPCR PO (12:16)
[2018-10-28] MEDS: Rosuvastatin 5 MG TAB PO (12:16)
[2018-10-28] MEDS: Normal Saline Flush 10 ML SYR (13:45)
--- NOTE | 2018-10-28 14:03 | PDOC.CMPRO ---
- If Service Date Differs Date of service: 10/28/18 Time of Service: 14:04 Care Management Progress Note S/O: Cece is sitting in bed when CM visits this morning. She is engaged in conversation, makes good eye contact, and is talkative. Cece is heading to the OR this morning for placement of a PEG tube. Cece is calm and reports that she has no worries about the procedure. CM spoke with Aleks, Cece's son, at her request regarding her status and advanced directives. Aleks plans on coming to the hospital on Thursday to fill them out with Cece and CM. Per operative note, Cece tolerated the procedure well. Cece's labs have improved but remain low; K: 3.2, M.7. A: 53 year old female admitted with hypokalemia and hypomagnesemia with esophageal cancer. P: Cece will discharge home with resumption of services vs. short term SNF placement when medically ready per MD. Cece will transport via private vehicle with her boyfriend, RHODA. CM will continue to offer support to patient, family, and care team regarding discharge planning and disposition.
--- NOTE | 2018-10-28 15:07 | W.PM.PROGNOT ---
Date of Service Date of service: 10/28/18 Time of Service: 15:29 Assessment and Plan (1) Abdominal pain: Start date: 10/28/18 Start time: 15:30 Current visit: Yes Status: Acute case reviewed with radiology and the tube is in good position can restart tube feeds and my require a java web engineer to help find the correct formula that would not case the abd pain and vomiting the pt had with the tube in proper position would restart at a slower rate and may need a different formula, less concentration or elemental Exam GI Inspection: normal to inspection Palpation: tender Abdomen image: 1. peg site Objective Objective Clinical Data: Abnormal lab results 10/28/18 10/28/18 Range/Units 06:28 06:28 RBC 2.76 L (4.00-5.20) m/cumm Hgb 8.4 L (12.0-15.5) g/dL Hct 25.5 L (36.0-46.0) % RDW 18.3 H (11.7-14.6) % Plt Count 495 H (130-400) x1000/uL Potassium 3.2 L (3.5-5.1) mmol/L BUN 3 L (7-18) mg/dL Glucose 127 H (70-100) mg/dL Calcium 8.3 L (8.5-10.1) mg/dL Magnesium 1.7 L (1.8-2.4) mg/dL Vital Signs Temperature 36.6 C 10/28/18 12:00 Temperature Source Tympanic 10/28/18 12:00 Pulse 80 10/28/18 12:00 Pulse Rhythm Regular 10/28/18 08:14 Pulse 92 H 10/25/18 23:40 Respiratory Rate 18 10/28/18 12:00 Respiratory Effort Non-Labored 10/28/18 08:14 Respiratory Depth Normal 10/28/18 08:14 Respiratory Pattern Normal 10/28/18 08:14 Blood Pressure 153/74 H 10/28/18 12:00 Blood Pressure Position Supine 10/25/18 20:27 Pulse Oximetry 99 10/28/18 12:00 Respiratory End-tidal CO2 31 10/28/18 10:58 Oxygen Delivery Method Room Air 10/28/18 10:58 Oxygen Flow Rate 0 10/28/18 09:00 Fraction of Inspired Oxygen (FIO2) 100 10/27/18 17:00 Pain Level 8 10/28/18 13:45 Comment 10/28/18 03:40 Intake & Output 10/27/18 10/28/18 10/28/18 23:59 11:59 23:59 Intake Total 1261.667 / 3040.000 1445 / 1445 Output Total 500 / 500 2150 / 2150 Balance 761.667 / 2540.000 -705 / -705 Weight 52.2 kg Intake: IV 1061.667 / 2600.000 1430 / 1430 Oral 200 / 440 Output: Urine 500 / 500 2150 / 2150 Other: Urine Color Yellow Yellow Urine Appearance Clear Clear Urine Odor Normal Normal Comment USED CHEMO PRECAUTIONS WHEN DUMPING URINE- PURPLE NITRILE GLOVES, PLASTIC GOWN AND PLACED CHUX OVER TOILET PRIOR TO FLUSHING X 2. Stool Occult Blood Negative Stool Size Small Stool Characteristics Soft Liquid Emesis Description Undigested Food None Voiding Methods Toilet Toilet Laboratory Results WBC 8.17 k/cumm (4.4-10.8) 10/28/18 06:28 RBC 2.76 m/cumm (4.00-5.20) L 10/28/18 06:28 Hgb 8.4 g/dL (12.0-15.5) L 10/28/18 06:28 Hct 25.5 % (36.0-46.0) L 10/28/18 06:28 MCV 92.4 fL (80-95) 10/28/18 06:28 MCH 30.4 pg (27.0-33.0) 10/28/18 06:28 MCHC 32.9 g/dL (32.0-36.0) 10/28/18 06:28 RDW 18.3 % (11.7-14.6) H 10/28/18 06:28 Plt Count 495 x1000/uL (130-400) H 10/28/18 06:28 MPV 8.4 fL (8.0-11.0) 10/28/18 06:28 Immature Gran % 0.3 10/25/18 20:55 Neutrophils % 74.0 10/25/18 20:55 Lymphocytes % 17.5 10/25/18 20:55 Monocytes % 6.8 10/25/18 20:55 Eosinophils % 1.1 10/25/18 20:55 Basophils % 0.3 10/25/18 20:55 Absolute Neutrophils 8.61 k/cumm (1.2-6.7) H 10/25/18 20:55 Absolute Lymphocytes 2.04 k/cumm (1.2-3.4) 10/25/18 20:55 Absolute Monocytes 0.79 k/cumm (0.11-0.7) H 10/25/18 20:55 Absolute Eosinophils 0.13 k/cumm (0.0-0.7) 10/25/18 20:55 Absolute Basophils 0.03 k/cumm (0.0-0.2) 10/25/18 20:55 Sodium 137 mmol/L (136-145) 10/28/18 06:28 Potassium 3.2 mmol/L (3.5-5.1) L 10/28/18 06:28 Chloride 103 mmol/L (98-107) 10/28/18 06:28 Carbon Dioxide 23.0 mmol/L (21.0-32.0) 10/28/18 06:28 Anion Gap 11.0 mmol/L (3-11) 10/28/18 06:28 BUN 3 mg/dL (7-18) L 10/28/18 06:28 Creatinine 0.60 mg/dL (0.55-1.02) 10/28/18 06:28 Estimated GFR/1.73 m2 >= 60.00 (mL/min/1.73m2) 10/28/18 06:28 Glucose 127 mg/dL (70-100) H 10/28/18 06:28 Calcium 8.3 mg/dL (8.5-10.1) L 10/28/18 06:28 Magnesium 1.7 mg/dL (1.8-2.4) L 10/28/18 06:28 Total Bilirubin 0.6 mg/dL (0.2-1.0) 10/26/18 07:10 AST 15 U/L (15-37) 10/26/18 07:10 ALT 6 U/L (12-78) L 10/26/18 07:10 Alkaline Phosphatase 86 U/L (46-116) 10/26/18 07:10 Troponin I < 0.02 ng/mL (0.00-0.06) 10/25/18 20:55 Total Protein 6.1 g/dL (6.4-8.2) L 10/26/18 07:10 Albumin 1.4 g/dL (3.4-5.0) L 10/26/18 07:10
[2018-10-28] MEDS: Omnipaque 350 MG/ML 50 ML BTL IJ (15:10)
[2018-10-28] MEDS: Acetaminophen 500 MG TAB 1000 MG PO (16:03)
--- NOTE | 2018-10-28 16:08 | DI.RAD_ITS ---
SYMPTOMS/DIAGNOSIS: G-TUBE PLACED HOURS AGO, NOW ABDOMINAL PAIN, VOMITED, H/O ESOPHAGEAL CA, PEG TUBE PLACED THIS MORNING GI TUBE: The study was carried out assess the status of a G-tube. Dilute contrast material was injected into the tube and readily appears in the mid and proximal stomach. There is no evidence of a leak and the tube appears to be well positioned.
[2018-10-28] MEDS: Ondansetron 4 MG/2 ML VIAL IVP (16:23)
--- NOTE | 2018-10-28 18:45 | NUR.NOTE ---
Patient complaint of feeling nauseous, vomited approximately 50mls of dark brownish bloody secretions. Nursing supervisor shed workers made aware of same. Medicated with Odanestron 4mg prn, prior to administration of enteral feed. 300 mls dark brownish, bloody prior to enteral administration. Same was not returned to stomach
--- NOTE | 2018-10-28 19:01 | W.PALLCONSUL ---
Date of service: 10/27/18 History of Present Illness Chief Complaint: esophogeal cancer, h/o breast cancer, weight loss, stress Narrative: Dr Mohan asked me to see Ccee to review her goals of care. She is due to have a feeding tube placed on 10/28. She cannot eat enough calories to maintain her current weight as her 9 cm in length esophogeal cancer partially occludes her lumen, making it very hard for her to swallow. Just prior to my arrival, her significant other PJ delivered all of her belongings that she had at his apartment to her hospital room. He told her that he could not take care of her. She does have a place of her own but it is not accessible to her due to her weakness. She was still trying to make sense of his actions when I came in. He was supposed to bring her tamoxifen--that she takes regularly for her breast cancer--into her but he forgot this. She has not been able to take it since admission. Cece vacillated in her response to his dumping her stuff off. She said, If I go somewhere else, he'll be lonely in 3 days and come get me. But then she said He can't handle the stress of me being sick. She had to stop work recently due to bad pains in my legs when I'm standing at work. She confirmed that she has been told she has claudication. She was smoking and drinking until about one month ago, when she went in [place] [facility] [place] pre[place]. It was during this pre-op, I understand, that her esophageal cancer was found. She saw Dr. Singleton, vascular surgeon, who was going to put in stents for her legs until she received her second cancer diagnosis. Vascular surgery has been indefinitely postponed, but with that, her ability to ambulate is still very limited. She knows she will need help wherever she ends up. Currently she vomits up more than half of what she eats. She is losing weight, 25 lbs in last 3 months--and she She was never heavy to begin with. She is chronically CASTILLO, severely so. She thinks her breathing is worse since she was diagnosed with her second cancer, even though she has stopped smoking. Her last drink was in September 2018. She denies any cravings for alcohol. She wants to live as long as she can --as long as her quality of life is good. She wants to gain weight. She wants to find a safe place to live. Consults Consult date: 10/27/18 Assessment and Plan (1) Cachexia: Current visit: No Status: Acute Cece is hoping that the feeding tube will help her gain weight so she can get through cancer treatment for her esophageal cancer. This is her second cancer diagnosed in short time, both alcohol related. She doesn't drink currently. Denies cravings. She is very frail. I am concerned that her level of malnutrition may take a while to recover from, postponing her cancer treatment. She is not a surgical candidate. She appears to be too frail to be able to tolerate either radiation or chemo. For now, the g-tube seems her best choice. Due for procedure 10/28. (2) Squamous cell carcinoma of esophagus: Current visit: No Status: Acute Very large tumor. Not resectable. Linked to combination of smoking and drinking. She has given up both as of now. Partially occluding lumen. Thus need for g-tube. Will try to track down path report. Very grim prognosis, I expect. (3) Discharge planning issues: Current visit: Yes Status: Acute Her SO no longer wants her at his apartment. She has 2 sons who live locally, but she doesn't think she could live with either of them. She is interested in going to [facility] and or remaining at [facility] so she can get her cancer treatment at [facility]. Gemma the CM is involved and aware of her change in housing status as of today. (4) Malnutrition: Current visit: No Status: Chronic Qualifiers: Malnutrition type: protein-calorie malnutrition Protein-calorie malnutrition severity: severe Qualified Code(s): E43 - Unspecified severe protein-calorie malnutrition (5) Counseling regarding advance directives and goals of care: Current visit: Yes Status: Acute Due to her emotional upset just prior to my visit, I did not go into depth about her wishes re: CODE status, COLST form, etc. I will return to speak to her, perhaps on 10/29, if she is able to post-G tube placement. I am concerned that her lack of social supports will make her cancer worse, and certainly her cancer treatment more complicated, more tenuous. Review of Systems Constitutional Reports anorexia, Reports daytime sleepiness, Reports difficulty sleeping, Reports fatigue, Reports lethargy, Reports malaise, Reports poor appetite, Reports weakness and Reports weight loss Eyes Reports requires corrective lenses ENT Reports dysphagia, Reports dizziness, Reports dry mouth, Reports hoarseness, Reports odynophagia and Reports disequilibrium Cardiovascular Reports rapid heart rate, Reports claudication, Reports lightheadedness, Reports palpitations, Reports dyspnea and Reports dyspnea on exertion Respiratory Reports dyspnea and Reports dyspnea on exertion Gastrointestinal Reports abdominal pain, Reports dysphagia, Reports early satiety, Reports dyspepsia, Reports heartburn, Reports nausea, Reports odynophagia and Reports vomiting Genitourinary Reports urinary incontinence Musculoskeletal Reports muscle weakness Integumentary/Breasts Reports change in breast shape Neurologic Reports dizziness, Reports disequilibrium and Reports weakness Psychiatric Reports depression, Reports difficulty concentrating and Reports irritability Endocrine Reports fatigue and Reports palpitations PFSH Medical History Abdominal pain (Acute) Depression (Chronic) Cachexia (Acute) Bacteremia (Acute) Squamous cell carcinoma of esophagus (Acute) Malnutrition (Chronic) Hypokalemia (Acute) Hypomagnesemia (Acute) Medical non-compliance (Chronic) Tobacco abuse (Chronic) Breast cancer (Chronic) PAD (peripheral artery disease) (Chronic) Dysphagia (Chronic) Alcohol abuse (Chronic) Claudication in peripheral vascular disease (Acute) Weight loss of more than 10% body weight (Acute) Hypertension (Chronic) Hypothyroidism (Chronic) Surgical History H/O breast biopsy (Chronic) Hx of tubal ligation (Chronic) S/P breast lumpectomy (Chronic) Family History Son No problems noted. Son No problems noted. Social History caregiver/support person: No household members: none housing: other details: has a house but cannot access it due to her illnesses and weakness marital status: single lives independently: Yes number of children: 2 fpc: No current occupational status: disabled current occupation: was working at [employer], couldn't do her job anymore pets and animals: No well-balanced diet: rarely or never eating out: rarely or never reads food labels: seldom or never during the past year weight has: decreased > 10 lbs Smoking/Tobacco Use Status: Former Tobacco Use alcohol intake: former Exam Const General: cooperative, anxious, disheveled, frail appearing and ill appearing Nutritional Appearance: cachectic, malnourished and underweight Orientation: alert, awake and oriented x3 HENMT Head: normocephalic and atraumatic Ears: hearing grossly normal bilaterally General nose exam: external nose normal Face and sinus: normal facial exam and dry mucous membranes Eyes Conjunctivae: conjunctivae normal Sclera: sclerae normal Neck Neck: no lymphadenopathy and no JVD Resp Effort & Inspection: normal respiratory effort and able to speak in complete sentences Auscultation: clear to auscultation bilaterally and diminished lung sounds Cardio Jugular venous pressure: no JVD Rate: tachycardic Rhythm: regular rhythm Heart Sounds: S1 normal and S2 normal GI Inspection: scaphoid Palpation: firm Auscultation: normal bowel sounds Skin General skin exam: dry skin Hair: brittle Nails: clubbing Neuro General: alert, awake and oriented x3 Cognition: normal cognition Speech: speech normal Extrem General: clubbing and muscle atrophy Psych Appearance: disheveled Mental Status: mental status grossly normal Speech and Movement: speech clear and slowed movement Mood: dysthymic mood Affect: blunted Attitude: cooperative Thought Process: impoverished Insight: fair Judgment: fair Results Last Vital Signs Temp 100.6 F H 10/28/18 16:00 Pulse 109 H 10/28/18 16:00 Resp 20 10/28/18 16:00 BP 156/76 H 10/28/18 16:00 Pulse Ox 100 10/28/18 16:00 Labs : 10/28/18 06:28 10/28/18 06:28 Laboratory Results - last 24 hr 10/28/18 10/28/18 06:28 06:28 WBC 8.17 RBC 2.76 L Hgb 8.4 L Hct 25.5 L MCV 92.4 MCH 30.4 MCHC 32.9 RDW 18.3 H Plt Count 495 H MPV 8.4 Sodium 137 Potassium 3.2 L Chloride 103 Carbon Dioxide 23.0 Anion Gap 11.0 BUN 3 L Creatinine 0.60 Estimated GFR/1.73 m2 >= 60.00 Glucose 127 H Calcium 8.3 L Magnesium 1.7 L
--- NOTE | 2018-10-28 19:04 | PCNE_ITS ---
Date of service: 10/27/18 History of Present Illness Chief Complaint: esophogeal cancer, h/o breast cancer, weight loss, stress Narrative: Dr Mohan asked me to see Cece to review her goals of care. She is due to have a feeding tube placed on 10/28. She cannot eat enough calories to maintain her current weight as her 9 cm in length esophogeal cancer partially occludes her lumen, making it very hard for her to swallow. Just prior to my arrival, her significant other PJ delivered all of her belongings that she had at his apartment to her hospital room. He told her that he could not take care of her. She does have a place of her own but it is not accessible to her due to her weakness. She was still trying to make sense of his actions when I came in. He was supposed to bring her tamoxifen--that she takes regularly for her breast cancer--into her but he forgot this. She has not been able to take it since admission. Cece vacillated in her response to his dumping her stuff off. She said, If I go somewhere else, he'll be lonely in 3 days and come get me. But then she said He can't handle the stress of me being sick. She had to stop work recently due to bad pains in my legs when I'm standing at work. She confirmed that she has been told she has claudication. She was smoking and drinking until about one month ago, when she went in to [facility] for her vascular pre-op. It was during this pre-op, I understand, that her esophageal cancer was found. She saw Dr. Singleton, vascular surgeon, who was going to put in stents for her legs until she received her second cancer diagnosis. Vascular surgery has been indefinitely postponed, but with that, her ability to ambulate is still very limited. She knows she will need help wherever she ends up. Currently she vomits up more than half of what she eats. She is losing weight, 25 lbs in last 3 months--and she She was never heavy to begin with. She is chronically CASTILLO, severely so. She thinks her breathing is worse since she was diagnosed with her second cancer, even though she has stopped smoking. Her last drink was in September 2018. She denies any cravings for alcohol. She wants to live as long as she can --as long as her quality of life is good. She wants to gain weight. She wants to find a safe place to live. Consults Consult date: 10/27/18 Assessment and Plan (1) Cachexia: Current visit: No Status: Acute Cece is hoping that the feeding tube will help her gain weight so she can get through cancer treatment for her esophageal cancer. This is her second cancer diagnosed in short time, both alcohol related. She doesn't drink currently. Denies cravings. She is very frail. I am concerned that her level of malnutrition may take a while to recover from, postponing her cancer treatment. She is not a surgical candidate. She appears to be too frail to be able to tolerate either radiation or chemo. For now, the g-tube seems her best choice. Due for procedure 10/28. (2) Squamous cell carcinoma of esophagus: Current visit: No Status: Acute Very large tumor. Not resectable. Linked to combination of smoking and drinking. She has given up both as of now. Partially occluding lumen. Thus need for g-tube. Will try to track down path report. Very grim prognosis, I expect. (3) Discharge planning issues: Current visit: Yes Status: Acute Her SO no longer wants her at his apartment. She has 2 sons who live locally, but she doesn't think she could live with either of them. She is interested in going to [facility] and or remaining at [facility] so she can get her cancer treatment at [facility]. Gemma the CM is involved and aware of her change in housing status as of today. (4) Malnutrition: Current visit: No Status: Chronic Qualifiers: Malnutrition type: protein-calorie malnutrition Protein-calorie malnutrition severity: severe Qualified Code(s): E43 - Unspecified severe protein-calorie malnutrition (5) Counseling regarding advance directives and goals of care: Current visit: Yes Status: Acute Due to her emotional upset just prior to my visit, I did not go into depth about her wishes re: CODE status, COLST form, etc. I will return to speak to her, perhaps on 10/29, if she is able to post-G tube p lacement. I am concerned that her lack of social supports will make her cancer worse, and certainly her cancer treatment more complicated, more tenuous. Review of Systems Constitutional Reports anorexia, Reports daytime sleepiness, Reports difficulty sleeping, Reports fatigue, Reports lethargy, Reports malaise, Reports poor appetite, Reports weakness and Reports weight loss Eyes Reports requires corrective lenses ENT Reports dysphagia, Reports dizziness, Reports dry mouth, Reports hoarseness, Reports odynophagia and Reports disequilibrium Cardiovascular Reports rapid heart rate, Reports claudication, Reports lightheadedness, Reports palpitations, Reports dyspnea and Reports dyspnea on exertion Respiratory Reports dyspnea and Reports dyspnea on exertion Gastrointestinal Reports abdominal pain, Reports dysphagia, Reports early satiety, Reports dyspepsia, Reports heartburn, Reports nausea, Reports odynophagia and Reports vomiting Genitourinary Reports urinary incontinence Musculoskeletal Reports muscle weakness Integumentary/Breasts Reports change in breast shape Neurologic Reports dizziness, Reports disequilibrium and Reports weakness Psychiatric Reports depression, Reports difficulty concentrating and Reports irritability Endocrine Reports fatigue and Reports palpitations PFSH Medical History Abdominal pain (Acute) Depression (Chronic) Cachexia (Acute) Bacteremia (Acute) Squamous cell carcinoma of esophagus (Acute) Malnutrition (Chronic) Hypokalemia (Acute) Hypomagnesemia (Acute) Medical non-compliance (Chronic) Tobacco abuse (Chronic) Breast cancer (Chronic) PAD (peripheral artery disease) (Chronic) Dysphagia (Chronic) Alcohol abuse (Chronic) Claudication in peripheral vascular disease (Acute) Weight loss of more than 10% body weight (Acute) Hypertension (Chronic) Hypothyroidism (Chronic) Surgical History H/O breast biopsy (Chronic) Hx of tubal ligation (Chronic) S/P breast lumpectomy (Chronic) Family History Son No problems noted. Son No problems noted. Social History caregiver/support person: No household members: none housing: other details: has a house but cannot access it due to her illnesses and weakness marital status: single lives independently: Yes number of children: 2 half-way: No current occupational status: disabled current occupation: was working at [employer], couldn't do her job anymore pets and animals: No well-balanced diet: rarely or never eating out: rarely or never reads food labels: seldom or never during the past year weight has: decreased > 10 lbs Smoking/Tobacco Use Status: Former Tobacco Use alcohol intake: former Exam Const General: cooperative, anxious, disheveled, frail appearing and ill appearing Nutritional Appearance: cachectic, malnourished and underweight Orientation: alert, awake and oriented x3 HENMT Head: normocephalic and atraumatic Ears: hearing grossly normal bilaterally General nose exam: external nose normal Face and sinus: normal facial exam and dry mucous membranes Eyes Conjunctivae: conjunctivae normal Sclera: sclerae normal Neck Neck: no lymphadenopathy and no JVD Resp Effort & Inspection: normal respiratory effort and able to speak in complete sentences Auscultation: clear to auscultation bilaterally and diminished lung sounds Cardio Jugular venous pressure: no JVD Rate: tachycardic Rhythm: regular rhythm Heart Sounds: S1 normal and S2 normal GI Inspection: scaphoid Palpation: firm Auscultation: normal bowel sounds Skin General skin exam: dry skin Hair: brittle Nails: clubbing Neuro General: alert, awake and oriented x3 Cognition: normal cognition Speech: speech normal Extrem General: clubbing and muscle atrophy Psych Appearance: disheveled Mental Status: mental status grossly normal Speech and Movement: speech clear and slowed movement Mood: dysthymic mood Affect: blunted Attitude: cooperative Thought Process: impoverished Insight: fair Judgment: fair Results Last Vital Signs Temp 100.6 F H 10/28/18 16:00 Pulse 109 H 10/28/18 16:00 Resp 20 10/28/18 16:00 BP 156/76 H 10/28/18 16:00 Pulse Ox 100 10/28/18 16:00 Labs : 10/28/18 06:28 10/28/18 06:28 Laboratory Results - last 24 hr 10/28/18 10/28/18 06:28 06:28 WBC 8.17 RBC 2.76 L Hgb 8.4 L Hct 25.5 L MCV 92.4 MCH 30.4 MCHC 32.9 RDW 18.3 H Plt Count 495 H MPV 8.4 Sodium 137 Potassium 3.2 L Chloride 103 Carbon Dioxide 23.0 Anion Gap 11.0 BUN 3 L Creatinine 0.60 Estimated GFR/1.73 m2 >= 60.00 Glucose 127 H Calcium 8.3 L Magnesium 1.7 L
[2018-10-29] VITALS (11 sets, daily range): BP systolic 107–164; BP diastolic 67–85; PULSE 88–98; RESP 16–20; TEMP 36.4–37.4; O2SAT 97–100
[2018-10-29] MEDS: Normal Saline Flush 10 ML SYR IVP ×3 (00:26→09:47)
[2018-10-29] MEDS: Acetaminophen Solution 650 MG/20.3 ML CUP 1000 MG UD ×3 (03:45→19:32)
[2018-10-29] MEDS: Omeprazole 20 MG CAPCR 40 MG UD (06:35)
[2018-10-29] MEDS: Levothyroxine 50 MCG TAB UD (06:35)
[2018-10-29 06:55] LABS: HCT 22.4 % (36.0-46.0); HGB 7.3 g/dL (12.0-15.5); Mean Corp. HGB Concentration 32.6 g/dL (32.0-36.0); Mean Corpuscular Hemoglobin 30.3 pg (27.0-33.0); Mean Corpuscular Volume 92.9 fL (80-95); Mean Platelet Volume 8.8 fL (8.0-11.0); Platelet Count 470 x1000/uL (130-400); RBC 2.41 m/cumm (4.00-5.20); White Blood Cell Count 11.51 k/cumm (4.4-10.8)
[2018-10-29 07:06] LABS: BUN 4 mg/dL (7-18); CREATININE 0.97 mg/dL (0.55-1.02); Calcium 8.2 mg/dL (8.5-10.1); Chloride 102 mmol/L (98-107); Glucose 134 mg/dL (70-100); Magnesium 1.4 mg/dL (1.8-2.4); Sodium 135 mmol/L (136-145)
[2018-10-29 07:12] LABS: Potassium 2.9 mmol/L (3.5-5.1)
--- NOTE | 2018-10-29 07:58 | W.PM.PROGNOT ---
Date of Service Date of service: 10/29/18 Time of Service: 07:59 Assessment and Plan (1) Cachexia: Start date: 10/29/18 Current visit: No Status: Acute start tube feeds may need to try other formulas to have her tolerate the diet (2) Squamous cell carcinoma of esophagus: Start date: 10/29/18 Current visit: No Status: Acute for surg oncology Subjective Patient reports: no new complaints Interval history since last seen: post op note pt having difficulties tolerating tube feeds tube in proper position Exam GI Inspection: normal to inspection Palpation: soft Auscultation: normal bowel sounds Abdomen image: 1. tube insertion site, CDI 2. tube patent Objective Objective Clinical Data: Abnormal lab results 10/29/18 10/29/18 10/29/18 Range/Units 06:13 06:13 07:39 WBC 11.51 H D (4.4-10.8) k/cumm RBC 2.41 L (4.00-5.20) m/cumm Hgb 7.3 L (12.0-15.5) g/dL Hct 22.4 L (36.0-46.0) % RDW 18.0 H (11.7-14.6) % Plt Count 470 H (130-400) x1000/uL Sodium 135 L (136-145) mmol/L Potassium 2.9 L* (3.5-5.1) mmol/L BUN 4 L (7-18) mg/dL Glucose 134 H (70-100) mg/dL Calcium 8.2 L (8.5-10.1) mg/dL Magnesium 1.4 L (1.8-2.4) mg/dL Crossmatch See Detail Vital Signs Temperature 37.1 C 10/28/18 23:50 Temperature Source Tympanic 10/28/18 23:50 Pulse 100 H 10/28/18 23:50 Pulse Rhythm Regular 10/29/18 00:00 Pulse 92 H 10/25/18 23:40 Respiratory Rate 19 10/28/18 23:50 Respiratory Effort 10/29/18 00:00 Respiratory Depth Normal 10/29/18 00:00 Respiratory Pattern Normal 10/29/18 00:00 Blood Pressure 122/63 10/28/18 23:50 Blood Pressure Position Supine 10/25/18 20:27 Pulse Oximetry 100 10/28/18 23:50 Respiratory End-tidal CO2 31 10/28/18 10:58 Oxygen Delivery Method Room Air 10/28/18 23:50 Oxygen Flow Rate 0 10/28/18 23:50 Fraction of Inspired Oxygen (FIO2) 100 10/27/18 17:00 Pain Level 8 10/29/18 00:27 Comment 10/28/18 03:40 Intake & Output 10/28/18 10/28/18 10/29/18 11:59 23:59 11:59 Intake Total 1445 / 2665 1220 / 2665 Output Total 2150 / 2860 710 / 2860 Balance -705 / -195 510 / -195 Weight 52.2 kg 52.9 kg Intake: IV 1430 / 2450 1020 / 2450 Oral 15 / 15 Intake, Tube Feeding Amount 200 / 200 Output: Urine 2150 / 2150 Emesis 50 / 50 Output, Residual 660 / 660 Other: Urine Color Yellow Pale Yellow Urine Appearance Clear Clear Urine Odor Normal None Comment pt voided in the tiolet pt. toileted self Stool Occult Blood Negative Stool Size Small Stool Characteristics Soft Liquid Emesis Description None Blood Tinged Voiding Methods Toilet Toilet Laboratory Results WBC 11.51 k/cumm (4.4-10.8) H D 10/29/18 06:13 RBC 2.41 m/cumm (4.00-5.20) L 10/29/18 06:13 Hgb 7.3 g/dL (12.0-15.5) L 10/29/18 06:13 Hct 22.4 % (36.0-46.0) L 10/29/18 06:13 MCV 92.9 fL (80-95) 10/29/18 06:13 MCH 30.3 pg (27.0-33.0) 10/29/18 06:13 MCHC 32.6 g/dL (32.0-36.0) 10/29/18 06:13 RDW 18.0 % (11.7-14.6) H 10/29/18 06:13 Plt Count 470 x1000/uL (130-400) H 10/29/18 06:13 MPV 8.8 fL (8.0-11.0) 10/29/18 06:13 Immature Gran % 0.3 10/25/18 20:55 Neutrophils % 74.0 10/25/18 20:55 Lymphocytes % 17.5 10/25/18 20:55 Monocytes % 6.8 10/25/18 20:55 Eosinophils % 1.1 10/25/18 20:55 Basophils % 0.3 10/25/18 20:55 Absolute Neutrophils 8.61 k/cumm (1.2-6.7) H 10/25/18 20:55 Absolute Lymphocytes 2.04 k/cumm (1.2-3.4) 10/25/18 20:55 Absolute Monocytes 0.79 k/cumm (0.11-0.7) H 10/25/18 20:55 Absolute Eosinophils 0.13 k/cumm (0.0-0.7) 10/25/18 20:55 Absolute Basophils 0.03 k/cumm (0.0-0.2) 10/25/18 20:55 Sodium 135 mmol/L (136-145) L 10/29/18 06:13 Potassium 2.9 mmol/L (3.5-5.1) L* 10/29/18 06:13 Chloride 102 mmol/L (98-107) 10/29/18 06:13 Carbon Dioxide 24.0 mmol/L (21.0-32.0) 10/29/18 06:13 Anion Gap 9.0 mmol/L (3-11) 10/29/18 06:13 BUN 4 mg/dL (7-18) L 10/29/18 06:13 Creatinine 0.97 mg/dL (0.55-1.02) 10/29/18 06:13 Estimated GFR/1.73 m2 >= 60.00 (mL/min/1.73m2) 10/29/18 06:13 Glucose 134 mg/dL (70-100) H 10/29/18 06:13 Calcium 8.2 mg/dL (8.5-10.1) L 10/29/18 06:13 Magnesium 1.4 mg/dL (1.8-2.4) L 10/29/18 06:13 Total Bilirubin 0.6 mg/dL (0.2-1.0) 10/26/18 07:10 AST 15 U/L (15-37) 10/26/18 07:10 ALT 6 U/L (12-78) L 10/26/18 07:10 Alkaline Phosphatase 86 U/L (46-116) 10/26/18 07:10 Troponin I < 0.02 ng/mL (0.00-0.06) 10/25/18 20:55 Total Protein 6.1 g/dL (6.4-8.2) L 10/26/18 07:10 Albumin 1.4 g/dL (3.4-5.0) L 10/26/18 07:10 Crossmatch See Detail 10/29/18 07:39
[2018-10-29] MEDS: MAGNESIUM SULFATE 4 GM/100 ML BAG IVPB (08:16)
[2018-10-29] MEDS: POTASSIUM CHLORIDE 10 MEQ/100 ML BAG 100 MEQ IVPB ×4 (09:47→15:12)
[2018-10-29] MEDS: Rosuvastatin 5 MG TAB UD (10:19)
[2018-10-29] MEDS: Venlafaxine 150 MG CAPCR UD (10:20)
[2018-10-29] MEDS: Folic Acid 1 MG TAB UD (10:20)
[2018-10-29] MEDS: Thiamine 100 MG TAB UD (10:21)
--- NOTE | 2018-10-29 10:53 | PGE_ITS ---
Date of Service Date of service: 10/29/18 Time of Service: 07:30 Assessment and Plan (1) Squamous cell carcinoma of esophagus: Current visit: No Status: Acute Her dysphasia has historically been getting worse, following endoscopy yesterday for PEG tube she has had some increased nausea and vomiting with some blood in vomitus probably from instrumentation. She has not had gross hem atemesis. She not had pain related to this prior, having some abdominal discomfort now more likely from her recent PEG tube placement. Outpatient radiation oncology appointment planned for November 01. Continue with symptom treatment for nausea and pain. (2) Bacteremia: Current visit: No Status: Acute Completes nafcillin this afternoon for MSSA bacteremia identified during her prior hospitalization. I do not have any compelling clinical indication to continue this beyond the planned 4-week treatment course and infectious disease at [facility] agrees with discontinuing her nafcillin today as previously planned. (3) Malnutrition: Current visit: No Status: Chronic Tube feedings have not been well tolerated thus far. Nutritional consultation appreciated for suggesting alternatives and we will gradually increase the titration rate. Goal is to have her tolerate sufficient calories and free water to maintain hydration and nutritional status, preferably on a schedule that does not require her to have continuous feeds. This is going to take time to set up and establish. Qualifiers: Malnutrition type: protein-calorie malnutrition Protein-calorie malnutrition severity: severe Qualified Code(s): E43 - Unspecified severe protein-calorie malnutrition (4) Hypokalemia: Current visit: No Status: Acute Potassium has been persistently low despite IV and enteral supplementation. She is not on any diuretic. It is not clear to me why she continues to have low potassium. She is not hypertensive to suggest hyperaldosteronism. No workup planned, continue IV and enteral supplementation of potassium. (5) Hypomagnesemia: Current visit: No Status: Acute Magnesium level also remains low despite IV supplementations which I am continuing. Probable GI loss. (6) Tobacco abuse: Current visit: No Status: Chronic Topical nicotine replacement continues, prefers not to use the nicotine inhaler as she thinks it gives her headache. (7) Depression: Current visit: No Status: Chronic Additional stressors with uncertain housing and turmoil in relationship with boyfriend. Supportive listening. Venlafaxine to continue and will administer via G-tube. (8) Anemia: Current visit: No Status: Chronic Stool occult blood negative. Did have blood in vomitus yesterday. I suspect that she is still oozing from her esophageal cancer despite heme- negative stool. Will transfuse 1 unit and monitor hemoglobin/hematocrit response. Subjective Interval history since last seen: Mrs. Welch has not tolerated tube feedings and were placed on hold overnight because of continued abdominal distention and nausea. She feels better now. She did have vomiting with heme positive material and visible blood but not gross hematemesis. Her hemoglobin has drifted down to the point where I am now going to transfuse her. Her potassium and magnesium levels continue to be low despite supplementation. She is not having excessive urine output or diarrhea at this point. Phone call received from [facility] infectious disease who agree with stopping her nafcillin as planned this afternoon unless our concerns regarding continued infection. Other than yesterday immediately after her gastrostomy tube placement, she has not had any temperature elevations. Continues to have some complaints of pain in the mid abdomen although better compared to yesterday. She had a little bit of itchiness after morphine but no rash or respiratory distress. Exam Narrative Exam Narrative: Awake and in no acute distress now. She has been afebrile overnight but did have a temperature of 38. 1 yesterday afternoon. She is pale. Neck veins are not distended. Lungs remain clear. No heart murmur heard. Bowel sounds present but somewhat diminished. Abdomen slightly tender in the mid abdomen no guarding or rebound. Exam yesterday afternoon showed increased tenderness to the right of her gastrostomy tube which is no longer present. Extremities warm, cannot feel a pulse in either foot. No edema. Transfers inde pendently. Looks tired Objective Objective Clinical Data: Abnormal lab results 10/29/18 10/29/18 10/29/18 Range/Units 06:13 06:13 08:50 WBC 11.51 H D (4.4-10.8) k/cumm RBC 2.41 L (4.00-5.20) m/cumm Hgb 7.3 L (12.0-15.5) g/dL Hct 22.4 L (36.0-46.0) % RDW 18.0 H (11.7-14.6) % Plt Count 470 H (130-400) x1000/uL Sodium 135 L (136-145) mmol/L Potassium 2.9 L* (3.5-5.1) mmol/L BUN 4 L (7-18) mg/dL Glucose 134 H (70-100) mg/dL Calcium 8.2 L (8.5-10.1) mg/dL Magnesium 1.4 L (1.8-2.4) mg/dL Crossmatch See Detail Vital Signs Temperature 36.4 C L 10/29/18 08:35 Temperature Source Tympanic 10/29/18 08:35 Pulse 93 H 10/29/18 08:35 Pulse Rhythm Regular 10/29/18 00:00 Pulse 92 H 10/25/18 23:40 Respiratory Rate 20 10/29/18 08:35 Respiratory Effort 10/29/18 00:00 Respiratory Depth Normal 10/29/18 00:00 Respiratory Pattern Normal 10/29/18 00:00 Blood Pressure 145/76 H 10/29/18 08:35 Blood Pressure Position Supine 10/25/18 20:27 Pulse Oximetry 97 10/29/18 08:35 Respiratory End-tidal CO2 31 10/28/18 10:58 Oxygen Delivery Method Room Air 10/29/18 08:35 Oxygen Flow Rate 0 10/29/18 08:35 Fraction of Inspired Oxygen (FIO2) 100 10/27/18 17:00 Pain Level 6 10/29/18 08:35 Comment 10/29/18 08:35 Intake & Output 10/28/18 10/28/18 10/29/18 11:59 23:59 11:59 Intake Total 1445 / 2665 1220 / 2665 120 / 120 Output Total 2150 / 2860 710 / 2860 1050 / 1050 Balance -705 / -195 510 / -195 -930 / -930 Weight 52.2 kg 52.9 kg Intake: IV 1430 / 2450 1020 / 2450 Oral 15 / 15 120 / 120 Intake, Tube Feeding Amount 200 / 200 Output: Urine 2150 / 2150 400 / 400 Stool 430 / 430 Emesis 50 / 50 Output, Residual 660 / 660 220 / 220 Other: Urine Color Yellow Pale Yellow Yellow Urine Appearance Clear Clear Clear Urine Odor Normal None Normal Comment pt voided in the tiolet pt. toileted self Stool Occult Blood Negative Stool Size Small Small Stool Characteristics Soft Liquid Liquid Emesis Description None Blood Tinged Voiding Methods Toilet Toilet Laboratory Results WBC 11.51 k/cumm (4.4-10.8) H D 10/29/18 06:13 RBC 2.41 m/cumm (4.00-5.20) L 10/29/18 06:13 Hgb 7.3 g/dL (12.0-15.5) L 10/29/18 06:13 Hct 22.4 % (36.0-46.0) L 10/29/18 06:13 MCV 92.9 fL (80-95) 10/29/18 06:13 MCH 30.3 pg (27.0-33.0) 10/29/18 06:13 MCHC 32.6 g/dL (32.0-36.0) 10/29/18 06:13 RDW 18.0 % (11.7-14.6) H 10/29/18 06:13 Plt Count 470 x1000/uL (130-400) H 10/29/18 06:13 MPV 8.8 fL (8.0-11.0) 10/29/18 06:13 Immature Gran % 0.3 10/25/18 20:55 Neutrophils % 74.0 10/25/18 20:55 Lymphocytes % 17.5 10/25/18 20:55 Monocytes % 6.8 10/25/18 20:55 Eosinophils % 1.1 10/25/18 20:55 Basophils % 0.3 10/25/18 20:55 Absolute Neutrophils 8.61 k/cumm (1.2-6.7) H 10/25/18 20:55 Absolute Lymphocytes 2.04 k/cumm (1.2-3.4) 10/25/18 20:55 Absolute Monocytes 0.79 k/cumm (0.11-0.7) H 10/25/18 20:55 Absolute Eosinophils 0.13 k/cumm (0.0-0.7) 10/25/18 20:55 Absolute Basophils 0.03 k/cumm (0.0-0.2) 10/25/18 20:55 Sodium 135 mmol/L (136-145) L 10/29/18 06:13 Potassium 2.9 mmol/L (3.5-5.1) L* 10/29/18 06:13 Chloride 102 mmol/L (98-107) 10/29/18 06:13 Carbon Dioxide 24.0 mmol/L (21.0-32.0) 10/29/18 06:13 Anion Gap 9.0 mmol/L (3-11) 10/29/18 06:13 BUN 4 mg/dL (7-18) L 10/29/18 06:13 Creatinine 0.97 mg/dL (0.55-1.02) 10/29/18 06:13 Estimated GFR/1.73 m2 >= 60.00 (mL/min/1.73m2) 10/29/18 06:13 Glucose 134 mg/dL (70-100) H 10/29/18 06:13 Calcium 8.2 mg/dL (8.5-10.1) L 10/29/18 06:13 Magnesium 1.4 mg/dL (1.8-2.4) L 10/29/18 06:13 Total Bilirubin 0.6 mg/dL (0.2-1.0) 10/26/18 07:10 AST 15 U/L (15-37) 10/26/18 07:10 ALT 6 U/L (12-78) L 10/26/18 07:10 Alkaline Phosphatase 86 U/L (46-116) 10/26/18 07:10 Troponin I < 0.02 ng/mL (0.00-0.06) 10/25/18 20:55 Total Protein 6.1 g/dL (6.4-8.2) L 10/26/18 07:10 Albumin 1.4 g/dL (3.4-5.0) L 10/26/18 07:10 Crossmatch See Detail 10/29/18 08:50
--- NOTE | 2018-10-29 14:46 | PDOC.CMPRO ---
- If Service Date Differs Date of service: 10/29/18 Time of Service: 14:46 Care Management Progress Note S/O: CM attempted to meet with patient at the bedside she is asleep at this time. Review of plan Cece remains acute she is NPO and will receive nutrition via peg tube. RD is consulted and enteral feedings continue to be adjusted r/t to Cece's tolerance to formula. NELC was updated today CM faxed H&P to service. Cece will need new enteral feeding orders faxed to [facility] prior to discharge. Discharge disposition to be determined home vs skilled facility pending Cece's support at home which has not been stable. Palliative care to continue to consult, Cece does have an appointment at [facility] on Thursday anticipate she will not be ready to go to that appointment r/t her acute status at this time. A: 53 year old female admitted with hypokalemia and hypomagnesemia with esophageal cancer. P: Cece remains acute today no change in status. Discharge disposition to be determined options are home with [facility] and [facility] vs Skilled facility. CM will continue to offer support to patient, family, and care team regarding discharge planning and disposition.
--- NOTE | 2018-10-29 15:25 | CMPROGNOTE_ITS ---
- If Service Date Differs Date of service: 10/29/18 Time of Service: 14:46 Care Management Progress Note S/O: CM attempted to meet with patient at the bedside she is asleep at this time. Review of plan Cece remains acute she is NPO and will receive nutrition via peg tube. RD is consulted and enteral feedings continue to be adjusted r/t to Cece's tolerance to formula. NELC was updated today CM faxed H&P to service. Cece will need new enteral feeding orders faxed to [facility] prior to discharge. Discharge disposition to be determined home vs skilled facility pending Cece's support at home which has not been stable. Palliative care to continue to consult, Cece does have an appointment at [facility] on Thursday anticipate she will not be ready to go to that appointment r/t her acute status at this time. A: 53 year old female admitted with hypokalemia and hypomagnesemia with esophageal cancer. P: Ceec remains acute today no change in status. Discharge disposition to be determined options are home with [facility] and [facility] vs Skilled facility. CM will continue to offer support to patient, family, and care team regarding discharge planning and disposition.
[2018-10-30] MEDS: Acetaminophen Solution 650 MG/20.3 ML CUP 1000 MG UD ×3 (00:33→11:23)
[2018-10-30] MEDS: Mylanta Suspension 30 ML CUP UD ×2 (00:35→05:17)
[2018-10-30] MEDS: POTASSIUM CHLORIDE/D5-0.45NACL 1,000 ML 100 MEQ IV (02:05)
[2018-10-30] MEDS: Normal Saline Flush 10 ML SYR IVP ×2 (02:05→19:38)
[2018-10-30 04:13] VITALS: BP 166/68; PULSE 94; RESP 18; TEMP 36.6; O2SAT 98
[2018-10-30] MEDS: Levothyroxine 50 MCG TAB UD (05:17)
[2018-10-30 07:24] LABS: HCT 27.2 % (36.0-46.0); HGB 9.1 g/dL (12.0-15.5); Mean Corp. HGB Concentration 33.5 g/dL (32.0-36.0); Mean Corpuscular Hemoglobin 30.5 pg (27.0-33.0); Mean Corpuscular Volume 91.3 fL (80-95); Mean Platelet Volume 8.9 fL (8.0-11.0); Platelet Count 474 x1000/uL (130-400); RBC 2.98 m/cumm (4.00-5.20); RBC Distribution Width 17.9 % (11.7-14.6); White Blood Cell Count 12.37 k/cumm (4.4-10.8)
[2018-10-30 07:25] VITALS: BP 172/82; PULSE 97; RESP 16; TEMP 37.2; O2SAT 98
[2018-10-30 08:11] LABS: BUN 6 mg/dL (7-18); CREATININE 0.82 mg/dL (0.55-1.02); Calcium 8.6 mg/dL (8.5-10.1); Chloride 102 mmol/L (98-107); Glucose 150 mg/dL (70-100); Magnesium 1.5 mg/dL (1.8-2.4); Potassium 3.2 mmol/L (3.5-5.1); Sodium 134 mmol/L (136-145)
[2018-10-30] MEDS: Venlafaxine 150 MG CAPCR UD (08:28)
[2018-10-30] MEDS: Omeprazole 20 MG CAPCR 40 MG UD (08:28)
[2018-10-30] MEDS: Folic Acid 1 MG TAB UD (08:28)
[2018-10-30] MEDS: Rosuvastatin 5 MG TAB UD (08:29)
[2018-10-30] MEDS: Thiamine 100 MG TAB UD (08:30)
--- NOTE | 2018-10-30 09:36 | PDOC.CMPRO ---
- If Service Date Differs Date of service: 10/30/18 Time of Service: 09:36 Care Management Progress Note S/O: CM met with Cece at the bedside she will have no change in status today. She is tolerating her feedings through Peg tube at goal rate. Anticipate she will transition to SB1 vs SNF placement on Thursday. She does have a follow up scheduled with [facility] for Thursday pending admission status and stability. Oral diet was increased today to clear liquids in addition to her tube feedings. A: 53 year old female admitted with hypokalemia and hypomagnesemia with esophageal cancer. P: Cece remains acute today no change in status. Discharge disposition to be determined options are home with [facility] and [facility] vs Skilled facility. CM will continue to offer support to patient, family, and care team regarding discharge planning and disposition.
--- NOTE | 2018-10-30 10:35 | DI.RAD_ITS ---
SYMPTOM/DIAGNOSIS: R/O PNA PORTABLE AP CHEST: 1030 HOURS 10/30/18 The heart is not enlarged. There are streaky and patchy areas of increased radiodensity in the lung bases bilaterally. Findings in the left lung base are probably decreased from the previous examination of September 26. Possible new right pleural effusion noted. Left PICC line noted with tip in the SVC. CONCLUSION: Findings consistent with incomplete resolution of basilar pneumonia vs recurrent disease, new right pleural effusion, consider chest CT for further evaluation.
--- NOTE | 2018-10-30 10:45 | DI.VRAD_ITS ---
EXAM: XR Chest, 1 View EXAM DATE/TIME: 10/30/2018 10:15 AM CLINICAL HISTORY: 53 years old, female; Signs and symptoms; Other: R/O pna TECHNIQUE: XR of the chest, 1 view. COMPARISON: CR XR PORTABLE CHEST AP 09/26/2018 6:05 PM FINDINGS: Lungs: Persistent opacity in the left base may represent pneumonia. Pleural space: Blunting in the right costophrenic angle may represent small right pleural effusion. Heart/Mediastinum: Unremarkable. No cardiomegaly. Bones/joints: Stable IMPRESSION: 1. Persistent opacity in the left base may represent pneumonia. 2. Blunting in the right costophrenic angle may represent small right pleural effusion. Dictated and Authenticated by: Charito Correa MD. Ordering:CHERIE Estrada MD
[2018-10-30 11:15] VITALS: BP 194/92; PULSE 105; RESP 16; TEMP 37.3; O2SAT 98
[2018-10-30] MEDS: MAGNESIUM SULFATE 4 GM/100 ML BAG IVPB (11:23)
[2018-10-30] MEDS: Psyllium PKT 1 EACH NG (11:24)
[2018-10-30] MEDS: Magnesium Oxide 400 MG TAB 800 MG NG ×2 (11:25→19:26)
[2018-10-30] MEDS: Metoprolol 12.5 MG TAB NG ×2 (12:14→19:25)
[2018-10-30] MEDS: PIPERACILLIN/TAZO 3.375 GM in Normal Saline 50 ML IVPB ×2 (13:52→19:38)
--- NOTE | 2018-10-30 14:23 | W.PM.PROGNOT ---
Date of Service Date of service: 10/30/18 Time of Service: 14:42 Assessment and Plan (1) Aspiration pneumonia: Current visit: No Status: Acute in light of tube feeding. Zosyn initiated. No evidence of TF residuals. On aspiration precautions. (2) Uncontrolled pain: Current visit: Yes Status: Acute Tylenol + percocet. (3) Hypertensive urgency: Current visit: Yes Status: Acute Pain control. Low dose of metoprolol initiated. (4) Squamous cell carcinoma of esophagus: Current visit: No Status: Acute with dysphagia, s/p PEG on 10/28/18, now tolerating TF but with diarrhea. For radiation oncology appointment on 11/01, if medically stable. (5) Bacteremia: Current visit: No Status: Resolved Completed nafcillin yesterday. (6) Malnutrition: Current visit: No Status: Chronic Tolerating Tube feeding. Qualifiers: Malnutrition type: protein-calorie malnutrition Protein-calorie malnutrition severity: severe Qualified Code(s): E43 - Unspecified severe protein-calorie malnutrition (7) Hypokalemia: Current visit: No Status: Acute Replete (8) Hypomagnesemia: Current visit: No Status: Acute Replete (9) Tobacco abuse: Current visit: No Status: Chronic Continue nicotine replacement (10) Depression: Current visit: No Status: Chronic venlafaxine changed to short acting as the patient is getting it through PEG tube (11) Anemia: Current visit: No Status: Chronic S/p transfusion of 1 unit pRBC's on this admission. H/H relatively stable. No evidence of active GI bleed. Did have hematemesis on this admission. Continue PPI. (12) Discharge planning issues: Current visit: Yes Status: Acute Disposition is an issue - discharge planning involved. Full code. (13) DVT prophylaxis: Current visit: No Status: Acute SCD's Subjective Interval history since last seen: Interval history since last seen: Reports cough, nonproductive, which she states started right after having the PEG tube placed. Also complains of abdominal pain and muscle spasms around the tube feeding insertion site. She states that morphine makes her itch. She would like to stick to just tylenol for pain, has taken percocet in the past. She denies dizziness, chest pain, shortness of breath, nausea, vomiting. Exam Narrative Exam Narrative: Exam Narrative: General: A&Ox3, coughing, not short of breath HEENT: EOMI, MMM Heart: RRR, no m/r/g Lungs: coughing. Diminished breath sounds at B bases. GI: abdomen tender in LUQ (PEG site) Extremities: no e/c/c BLE's Objective Objective Clinical Data: WBC up to 12.37 (from 11.51) H/H 9.1 (from 7.3) K 3.2 Magnesium 1.5
[2018-10-30 15:39] VITALS: BP 130/75; PULSE 91; RESP 18; TEMP 37.1; O2SAT 98
[2018-10-30] MEDS: oxyCODONE 5 mg/Acetaminophen 325 mg TAB 1 TAB NG (19:32)
[2018-10-30 19:41] VITALS: BP 173/90; PULSE 103; RESP 16; TEMP 38.1; O2SAT 99
[2018-10-31] VITALS (7 sets, daily range): BP systolic 132–175; BP diastolic 71–96; PULSE 80–103; RESP 16–19; TEMP 36.5–37.4; O2SAT 96–100
[2018-10-31] MEDS: oxyCODONE 5 mg/Acetaminophen 325 mg TAB 1 TAB NG ×4 (00:33→22:05)
[2018-10-31] MEDS: Mylanta Suspension 30 ML CUP UD ×3 (00:33→14:00)
[2018-10-31] MEDS: Normal Saline Flush 10 ML SYR IVP ×6 (00:33→23:37)
[2018-10-31] MEDS: PIPERACILLIN/TAZO 3.375 GM in Normal Saline 50 ML IVPB ×4 (04:04→23:38)
[2018-10-31] MEDS: Levothyroxine 50 MCG TAB UD (05:28)
[2018-10-31 07:26] LABS: Abs Immature Grans 0.02 k/cumm (0.0-0.09); Absolute Eosinophil Count 0.37 k/cumm (0.0-0.7); Absolute Lymphocyte Count 1.26 k/cumm (1.2-3.4); Absolute Monocyte Count 0.84 k/cumm (0.11-0.7); Basophils % 0.2; Eosinophils % 2.8; HCT 28.6 % (36.0-46.0); HGB 9.5 g/dL (12.0-15.5); Immature Grans % 0.2; Lymphocytes % 9.5; Mean Corp. HGB Concentration 33.2 g/dL (32.0-36.0); Mean Corpuscular Hemoglobin 29.9 pg (27.0-33.0); Mean Corpuscular Volume 89.9 fL (80-95); Mean Platelet Volume 8.9 fL (8.0-11.0); Monocytes % 6.3; Platelet Count 510 x1000/uL (130-400); RBC 3.18 m/cumm (4.00-5.20); RBC Distribution Width 17.5 % (11.7-14.6)
[2018-10-31 07:28] LABS: Absolute Basophil Count 0.03 k/cumm (0.0-0.2); Absolute Neutrophil Count 10.77 k/cumm (1.2-6.7)
[2018-10-31 07:36] LABS: Anion Gap 8.8 mmol/L (3-11); BUN 6 mg/dL (7-18); CO2 26.2 mmol/L (21.0-32.0); CREATININE 0.69 mg/dL (0.55-1.02); Calcium 8.8 mg/dL (8.5-10.1); Chloride 96 mmol/L (98-107); Glucose 118 mg/dL (70-100); Magnesium 1.4 mg/dL (1.8-2.4); Potassium 3.1 mmol/L (3.5-5.1); Sodium 131 mmol/L (136-145)
--- NOTE | 2018-10-31 07:58 | PDOC.CMPRO ---
- If Service Date Differs Date of service: 10/31/18 Time of Service: 07:58 Care Management Progress Note S/O:CM met with Cece at the bedside she is alert and engaged in conversation. She is tearful at times. She states her appointment with is to review results and determine treatment plan. this appointment should be rescheduled related to her acute status. CM to follow up with [facility]. Cece wants treatment she states she feels alone at this time. She does not want to return to and feels her needs would be better met at a SNF for now. She does not feel she can return to her apartment in [place] and needs to be closer to the [facility]. Cece agrees to a referral [facility]. Cece has a PICC line she completed her antibiotics yesterday. She was febrile overnight blood cultures are pending. She is having high residuals with her Peg tube she. Cece will need ongoing discharge teaching related to Peg tube, feedings and maintenance. She states her goals are as follows: Disability application, new housing more local, she would like to cut her hair she states that is the one thing I can control. CM will assist Cece in setting up phone interview for her disability. She appreciates continue palliative support wtih and feels that she has a really good relationship with her. CM will fax referral to [facility] at Cece's request. A: 53 year old female admitted with hypokalemia and hypomagnesemia with esophageal cancer. P: Cece remains acute today no change in status. Discharge disposition to be determined options are home with [facility] and [facility] vs Skilled facility. CM will continue to offer support to patient, family, and care team regarding discharge planning and disposition.
[2018-10-31] MEDS: Pantoprazole 40 MG VIAL IVP (08:40)
[2018-10-31 13:36] LABS: Bilirubin Negative (Negative); Blood Negative (Negative); Clarity Clear; Glucose Negative (Negative); Ketones Negative (Negative); Leukocyte Esterase Negative (Negative); Nitrite Negative (Negative); Urobilinogen 0.2 EU/dL (Up TO 0.2); pH 8.5 (5-8)
[2018-10-31] MEDS: POTASSIUM CHLORIDE 20 MEQ/100 ML BAG 50 MEQ IVPB ×2 (13:56→17:21)
[2018-10-31] MEDS: MAGNESIUM SULFATE 4 GM/100 ML BAG IVPB (13:57)
[2018-10-31] MEDS: VANCOMYCIN 1,000 MG in Normal Saline 250 ML 166.667 MG IVPB (13:57)
[2018-10-31] MEDS: Metoclopramide 10 MG/2 ML VIAL 5 MG IVP ×2 (15:04→20:04)
--- NOTE | 2018-10-31 15:43 | W.PM.PROGNOT ---
Date of Service Date of service: 10/31/18 Time of Service: 15:43 Assessment and Plan (1) Aspiration pneumonia: Current visit: No Status: Acute Continue zosyn, vancomycin added due to worsening leucocytosis. Blood cultures obtained. Technically, meets sepsis criteria. Initiated on reglan to help with GI motility/lowering TF residuals. (2) Uncontrolled pain: Current visit: Yes Status: Acute Better today with percocet/tylenol (3) Hypertensive urgency: Current visit: Yes Status: Acute Focus on pain control. BP's are better. continue low dose metoprolol (4) Squamous cell carcinoma of esophagus: Current visit: No Status: Acute with dysphagia, s/p PEG on 10/28/18. Having issues with residuals today. TF's held temporarily, reglan initiated. Will continue to monitor. (5) Bacteremia: Current visit: No Status: Resolved Completed nafcillin. PICC line recultured given fever last night - await results. (6) Malnutrition: Current visit: No Status: Chronic As above Qualifiers: Malnutrition type: protein-calorie malnutrition Protein-calorie malnutrition severity: severe Qualified Code(s): E43 - Unspecified severe protein-calorie malnutrition (7) Hypokalemia: Current visit: No Status: Acute Replete (8) Hypomagnesemia: Current visit: No Status: Acute Replete (9) Tobacco abuse: Current visit: No Status: Chronic Continue nicotine replacement (10) Depression: Current visit: No Status: Chronic Continue venlafaxine (11) Anemia: Current visit: No Status: Chronic S/p transfusion of 1 unit pRBC's on this admission. H/Hremains stable. No evidence of active GI bleed. Did have hematemesis on this admission. Continue PPI. (12) Discharge planning issues: Current visit: Yes Status: Acute Disposition is an issue - discharge planning involved. Full code. (13) DVT prophylaxis: Current visit: No Status: Acute SCD's Subjective Interval history since last seen: The patient complains of belching and request mylanta. She has had several residuals >100 cc today. She was initiated on reglan. Continues to have cough productive of clear sputum. Denies dizziness, chest pain, shortness of breath, nausea, vomiting. She is frustrated that her magnesium remains low. Tmax 38.1 yesterday at 19:41. Exam Narrative Exam Narrative: General: A&Ox3, sitting comfortably in bed HEENT: EOMI, MMM Heart: RRR, no m/r/g Lungs: Diminished breath sounds at B bases; coarse GI: abdomen tender in LUQ (PEG site) Extremities: no e/c/c BLE's Objective Objective Clinical Data: Abnormal lab results 10/31/18 10/31/18 10/31/18 Range/Units 06:30 06:30 12:40 WBC 13.30 H (4.4-10.8) k/cumm RBC 3.18 L (4.00-5.20) m/cumm Hgb 9.5 L (12.0-15.5) g/dL Hct 28.6 L (36.0-46.0) % RDW 17.5 H (11.7-14.6) % Plt Count 510 H (130-400) x1000/uL Absolute Neutrophils 10.77 H (1.2-6.7) k/cumm Absolute Monocytes 0.84 H (0.11-0.7) k/cumm Sodium 131 L (136-145) mmol/L Potassium 3.1 L (3.5-5.1) mmol/L Chloride 96 L (98-107) mmol/L BUN 6 L (7-18) mg/dL Glucose 118 H (70-100) mg/dL Magnesium 1.4 L (1.8-2.4) mg/dL Urine pH 8.5 H (5-8) Vital Signs Temperature 36.7 C 10/31/18 15:38 Temperature Source Tympanic 10/31/18 15:38 Pulse 92 H 10/31/18 15:38 Pulse Rhythm Regular 10/31/18 08:58 Pulse 92 H 10/25/18 23:40 Respiratory Rate 17 10/31/18 15:38 Respiratory Effort Non-Labored 10/31/18 08:58 Respiratory Depth Normal 10/31/18 08:58 Respiratory Pattern Normal 10/31/18 08:58 Blood Pressure 162/87 H 10/31/18 15:38 Blood Pressure Position Supine 10/25/18 20:27 Pulse Oximetry 97 10/31/18 15:38 Respiratory End-tidal CO2 31 10/28/18 10:58 Oxygen Delivery Method Room Air 10/31/18 15:38 Oxygen Flow Rate 0 10/31/18 15:38 Fraction of Inspired Oxygen (FIO2) 100 10/27/18 17:00 Pain Level 6 10/31/18 15:04 Comment 10/29/18 12:07 Intake & Output 10/30/18 10/31/18 10/31/18 23:59 11:59 23:59 Intake Total 2330 / 2330 400 / 400 Output Total 1765 / 2465 1460 / 1820 360 / 1820 Balance 565 / -135 -1060 / -1420 -360 / -1420 Intake: IV 1180 / 1180 50 / 50 Oral 480 / 480 Intake, Tube Feeding Amount 670 / 670 350 / 350 Output: Urine 1400 / 2000 1000 / 1250 250 / 1250 Output, Residual 365 / 465 460 / 570 110 / 570 Other: Urine Color Yellow Yellow Yellow Urine Appearance Clear Clear Clear Urine Odor Normal Normal Stool Size Small Small Moderate Stool Characteristics Soft Soft Soft Liquid Voiding Methods Toilet Toilet Toilet Laboratory Results WBC 13.30 k/cumm (4.4-10.8) H 10/31/18 06:30 RBC 3.18 m/cumm (4.00-5.20) L 10/31/18 06:30 Hgb 9.5 g/dL (12.0-15.5) L 10/31/18 06:30 Hct 28.6 % (36.0-46.0) L 10/31/18 06:30 MCV 89.9 fL (80-95) 10/31/18 06:30 MCH 29.9 pg (27.0-33.0) 10/31/18 06:30 MCHC 33.2 g/dL (32.0-36.0) 10/31/18 06:30 RDW 17.5 % (11.7-14.6) H 10/31/18 06:30 Plt Count 510 x1000/uL (130-400) H 10/31/18 06:30 MPV 8.9 fL (8.0-11.0) 10/31/18 06:30 Immature Gran % 0.2 10/31/18 06:30 Neutrophils % 81.0 10/31/18 06:30 Lymphocytes % 9.5 10/31/18 06:30 Monocytes % 6.3 10/31/18 06:30 Eosinophils % 2.8 10/31/18 06:30 Basophils % 0.2 10/31/18 06:30 Absolute Neutrophils 10.77 k/cumm (1.2-6.7) H 10/31/18 06:30 Absolute Lymphocytes 1.26 k/cumm (1.2-3.4) 10/31/18 06:30 Absolute Monocytes 0.84 k/cumm (0.11-0.7) H 10/31/18 06:30 Absolute Eosinophils 0.37 k/cumm (0.0-0.7) 10/31/18 06:30 Absolute Basophils 0.03 k/cumm (0.0-0.2) 10/31/18 06:30 Sodium 131 mmol/L (136-145) L 10/31/18 06:30 Potassium 3.1 mmol/L (3.5-5.1) L 10/31/18 06:30 Chloride 96 mmol/L (98-107) L 10/31/18 06:30 Carbon Dioxide 26.2 mmol/L (21.0-32.0) 10/31/18 06:30 Anion Gap 8.8 mmol/L (3-11) 10/31/18 06:30 BUN 6 mg/dL (7-18) L 10/31/18 06:30 Creatinine 0.69 mg/dL (0.55-1.02) 10/31/18 06:30 Estimated GFR/1.73 m2 >= 60.00 (mL/min/1.73m2) 10/31/18 06:30 Glucose 118 mg/dL (70-100) H 10/31/18 06:30 Calcium 8.8 mg/dL (8.5-10.1) 10/31/18 06:30 Magnesium 1.4 mg/dL (1.8-2.4) L 10/31/18 06:30 Total Bilirubin 0.6 mg/dL (0.2-1.0) 10/26/18 07:10 AST 15 U/L (15-37) 10/26/18 07:10 ALT 6 U/L (12-78) L 10/26/18 07:10 Alkaline Phosphatase 86 U/L (46-116) 10/26/18 07:10 Troponin I < 0.02 ng/mL (0.00-0.06) 10/25/18 20:55 Total Protein 6.1 g/dL (6.4-8.2) L 10/26/18 07:10 Albumin 1.4 g/dL (3.4-5.0) L 10/26/18 07:10 Urine Color Yellow (Yellow) 10/31/18 12:40 Urine Clarity Clear 10/31/18 12:40 Urine pH 8.5 (5-8) H 10/31/18 12:40 Ur Specific [place] 1.020 (1.005-1.025) 10/31/18 12:40 Urine Protein Negative mg/dL (Negative) 10/31/18 12:40 Urine Ketones Negative mg/dL (Negative) 10/31/18 12:40 Urine Blood Negative (Negative) 10/31/18 12:40 Urine Nitrite Negative (Negative) 10/31/18 12:40 Urine Bilirubin Negative (Negative) 10/31/18 12:40 Urine Urobilinogen 0.2 EU/dL (Up TO 0.2) 10/31/18 12:40 Ur Leukocyte Esterase Negative (Negative) 10/31/18 12:40 Urine Glucose Negative mg/dL (Negative) 10/31/18 12:40 Patient ABO/Rh O Positive 10/29/18 08:50 Antibody Screen Negative 10/29/18 08:50 Crossmatch See Detail 10/29/18 08:50
[2018-10-31] MEDS: VANCOMYCIN 750 MG in Normal Saline 250 ML 166.667 MG IVPB (20:04)
[2018-10-31] MEDS: Magnesium Oxide 400 MG TAB 800 MG NG (20:05)
[2018-10-31] MEDS: Metoprolol 12.5 MG TAB NG (20:05)
[2018-10-31] MEDS: Venlafaxine 75 MG TAB NG (20:05)
[2018-11-01] VITALS (7 sets, daily range): BP systolic 152–174; BP diastolic 74–91; PULSE 83–95; RESP 16–19; TEMP 36–37; O2SAT 96–100
[2018-11-01] MEDS: Acetaminophen Solution 650 MG/20.3 ML CUP 1000 MG UD (02:15)
[2018-11-01] MEDS: Normal Saline Flush 10 ML SYR IVP ×6 (02:15→23:46)
[2018-11-01] MEDS: Metoclopramide 10 MG/2 ML VIAL 5 MG IVP ×4 (02:15→21:25)
[2018-11-01] MEDS: Mylanta Suspension 30 ML CUP UD (02:16)
[2018-11-01] MEDS: VANCOMYCIN 750 MG in Normal Saline 250 ML 166.667 MG IVPB (04:21)
[2018-11-01] MEDS: PIPERACILLIN/TAZO 3.375 GM in Normal Saline 50 ML IVPB ×4 (05:53→23:46)
[2018-11-01] MEDS: Levothyroxine 50 MCG TAB UD (06:30)
[2018-11-01] MEDS: oxyCODONE 5 mg/Acetaminophen 325 mg TAB 1 TAB NG ×2 (06:47→21:25)
[2018-11-01 06:54] LABS: Anion Gap 9.2 mmol/L (3-11); BUN 8 mg/dL (7-18); CO2 24.8 mmol/L (21.0-32.0); CREATININE 0.77 mg/dL (0.55-1.02); Calcium 8.6 mg/dL (8.5-10.1); Chloride 97 mmol/L (98-107); Glucose 124 mg/dL (70-100); Magnesium 1.5 mg/dL (1.8-2.4); Potassium 3.4 mmol/L (3.5-5.1); Sodium 131 mmol/L (136-145)
[2018-11-01 06:55] LABS: Abs Immature Grans 0.03 k/cumm (0.0-0.09); Absolute Basophil Count 0.03 k/cumm (0.0-0.2); Absolute Eosinophil Count 0.46 k/cumm (0.0-0.7); Absolute Lymphocyte Count 1.38 k/cumm (1.2-3.4); Absolute Monocyte Count 0.91 k/cumm (0.11-0.7); Absolute Neutrophil Count 7.88 k/cumm (1.2-6.7); Basophils % 0.3; Eosinophils % 4.3; HCT 27.4 % (36.0-46.0); Immature Grans % 0.3; Lymphocytes % 12.9; Mean Corp. HGB Concentration 32.8 g/dL (32.0-36.0); Mean Corpuscular Hemoglobin 30.1 pg (27.0-33.0); Mean Corpuscular Volume 91.6 fL (80-95); Mean Platelet Volume 8.6 fL (8.0-11.0); Monocytes % 8.5; Neutrophils % 73.7; Platelet Count 482 x1000/uL (130-400); RBC 2.99 m/cumm (4.00-5.20); RBC Distribution Width 16.9 % (11.7-14.6); White Blood Cell Count 10.69 k/cumm (4.4-10.8)
[2018-11-01] MEDS: Pantoprazole 40 MG VIAL IVP (09:00)
[2018-11-01] MEDS: Magnesium Oxide 400 MG TAB 800 MG NG ×2 (09:01→21:25)
[2018-11-01] MEDS: Folic Acid 1 MG TAB UD (09:01)
[2018-11-01] MEDS: Thiamine 100 MG TAB UD (09:02)
[2018-11-01] MEDS: Rosuvastatin 5 MG TAB UD (09:02)
[2018-11-01] MEDS: Metoprolol 12.5 MG TAB NG ×2 (09:02→21:25)
[2018-11-01] MEDS: Venlafaxine 75 MG TAB NG ×2 (09:02→21:25)
--- NOTE | 2018-11-01 09:13 | PDOC.CMPRO ---
- If Service Date Differs Date of service: 11/01/18 Time of Service: 09:13 Care Management Progress Note S/O: Cece was lying in bed when CM visited this morning. She is engaged in conversation, makes good eye contact, and is talkative. Cece's appointment at [facility], scheduled for this morning, has been canceled due to her continued electrolyte insufficiencies. Dr. Laughlin has requested a conversation with Dr. Dia at [facility]. CM provided Cece with the phone number for Disability/SSI and will continue to assist if needed. Cece reports that her son, Aaron, visited on Thursday with her grandchildren and is asking CM to phone him again regarding planning and advanced directives. Cece reiterates that she would like to wait for both of her children prior to filling out ADs. Cece and CM spoke about her wanting to cut her hair, after telling WINTER Grier that this was the one thing I can control. 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 CM will fax referral to [facility] per patient's request; Cece reiterated that she does not want to return to 's house in [place] and that while she doesn't want to go to a SNF, she understands that she could benefit from s/t rehab. A: 53 year old female admitted with hypokalemia and hypomagnesemia with esophageal cancer. P: Cece remains acute today with no change in status. Anticipate patient will discharge home with resumption of services vs. SNF. Transportation will be determined. CM will continue to offer support to patient, family, and care team regarding discharge planning and disposition.
--- NOTE | 2018-11-01 09:26 | CMPROGNOTE_ITS ---
- If Service Date Differs Date of service: 11/01/18 Time of Service: 09:13 Care Management Progress Note S/O: Cece was lying in bed when CM visited this morning. She is engaged in conversation, makes good eye contact, and is talkative. Cece's appointment at [facility], scheduled for this morning, has been canceled due to her continued electrolyte insufficiencies. Dr. Laughlin has requested a conversation with Dr. Dia at [facility]. CM provided Cece with the phone number for Disability/SSI and will continue to assist if needed. Cece reports that her son, Aaron, visited on Thursday with her grandchildren and is asking CM to phone him again regarding planning and advanced directives. Cece reiterates that she would like to wait for both of her children prior to filling out ADs. Cece and CM spoke about her wanting to cut her hair, after telling WINTER Grier that this was the one thing I can control. 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 CM will fax referral to [facility] per patient's request; Cece reiterated that she does not want to return to 's house in [place] and that while she doesn't want to go to a SNF, she understands that she could benefit from s/t rehab. A: 53 year old female admitted with hypokalemia and hypomagnesemia with esophageal cancer. P: Cece remains acute today with no change in status. Anticipate patient will discharge home with resumption of services vs. SNF. Transportation will be determined. CM will continue to offer support to patient, family, and care team regarding discharge planning and disposition.
[2018-11-01] MEDS: MAGNESIUM SULFATE 4 GM/100 ML BAG IVPB (09:27)
[2018-11-01 12:00] LABS: Vancomycin, Trough 21.9 ug/mL (10.0-20.0)
--- NOTE | 2018-11-01 13:47 | W.NUTRFU ---
Date of service: 11/01/18 Time of Service: 13:47 Nutritional Follow up NOTE: Wt. fairly stable. 49.5 kg. BMI 18.7 kg/m2 low normal. Tolerating Osmolite 1.2 kevin up to 45 ml/hr. She had been getting Metamucil per PEG to get some additional fiber to help with diarrhea, however the Metamucil requires a volume of free water that is difficult for her to tolerate. Ms. Welch did not tolerate Jevity 1.2 kevin when we started with it initially, therefore I suggested Osmolite 1.2 and Jevity 1.2 kevin at a 1:1 ratio at a goal rate of 50 ml/hr continuously. This regimen provides 11 grams of fiber which may be adequate to regulate her bowels. Will continue to monitor her tolerance to feeding regimen and her weight. Will evaluate her nutrition care plan and adjust as needed. Time Spent in Nutritional Counseling and Treatment: PARDEEP
[2018-11-01] MEDS: VANCOMYCIN 750 MG in Normal Saline 250 ML 250 MG IVPB (14:29)
--- NOTE | 2018-11-01 14:41 | CHAPLAIN ---
Cece is sick of being here, and that's the first thing she tells me. She talks about the difficulties she has faced - a boyfriend , she was diagnosed with breast cancer, has a reoccurrence of cancer, she recently from her boyfriend and now she needs to look for another place to live because her current apartment has a spiral staircase that will be too difficult for her. She is waiting to hear how long her radiation treatments are postponed for. It's depressing, it's one thing after another, she said. We talked about her sense of resiliency and how difficult it is to take things by day by day when you have little control over your life.
--- NOTE | 2018-11-01 16:26 | W.PM.PROGNOT ---
Date of Service Date of service: 11/01/18 Time of Service: 16:26 Assessment and Plan (1) Aspiration pneumonia: Current visit: No Status: Acute Improved. Patient is not compliant with elevating head of her bed. Continue vancomycin/zosyn and continue educating the patient on aspiration precautions. Blood cultures with NGTD, including from the PICC. Continue reglan to help with GI motility/lowering TF residuals. (2) Uncontrolled pain: Current visit: Yes Status: Acute Improved - no change in pain regimen (3) Hypertensive urgency: Current visit: Yes Status: Resolved Continue low dose BB. (4) Squamous cell carcinoma of esophagus: Current visit: No Status: Acute with dysphagia, s/p PEG on 10/28/18. Continue reglan to help with residuals. Patient was supposed to have a radiation oncology appointment today if she were outpatient, but she is still requiring hospitalization. I have reached out to rad onc (Dr Dia) to find out whether or not it is felt that this patient would benefit from inpatient radiation - at this time, I am still awaiting call back, having left a message with her nurse. The patient is agreeable with transfer to a different hospital if needed. (5) Bacteremia: Current visit: No Status: Resolved Completed nafcillin. PICC line recultured - blood cx negative. (6) Malnutrition: Current visit: No Status: Chronic As above. TF's adjusted today as per certified phlebotomy technician recommendations. Qualifiers: Malnutrition type: protein-calorie malnutrition Protein-calorie malnutrition severity: severe Qualified Code(s): E43 - Unspecified severe protein-calorie malnutrition (7) Hypokalemia: Current visit: No Status: Acute Replete (8) Hypomagnesemia: Current visit: No Status: Acute Replete (9) Tobacco abuse: Current visit: No Status: Chronic Continue nicotine replacement (10) Depression: Current visit: No Status: Chronic Continue venlafaxine. I added mirtazapine. (11) Anemia: Current visit: No Status: Chronic S/p transfusion of 1 unit pRBC's on this admission. H/H remains stable. No evidence of active GI bleed. Did have hematemesis on this admission. Continue PPI. (12) Discharge planning issues: Current visit: Yes Status: Acute Disposition is an issue - discharge planning involved. May require transfer to [facility] for [place]RT. Full code. (13) DVT prophylaxis: Current visit: No Status: Acute SCD's Subjective Interval history since last seen: Ms Welch states her cough is better. She is tolerating her TF's better today. No diarrhea. Denies dizziness, chest pain, shortness of breath. She spoke with nursing and then with me about feeling depressed and hopeless. She denies suicidal ideation. She is willing to try a medication for her depression. Exam Narrative Exam Narrative: General: A&Ox3, sitting comfortably in bed, tearful when talking about her depression HEENT: EOMI, MMM Heart: RRR, no m/r/g Lungs: Diminished breath sounds at B bases; coarse - overall sounds better GI: abdomen tender in LUQ (PEG site), this is also better Extremities: no e/c/c BLE's Objective Objective Clinical Data: Abnormal lab results 11/01/18 11/01/18 11/01/18 Range/Units 06:30 06:30 11:15 RBC 2.99 L (4.00-5.20) m/cumm Hgb 9.0 L (12.0-15.5) g/dL Hct 27.4 L (36.0-46.0) % RDW 16.9 H (11.7-14.6) % Plt Count 482 H (130-400) x1000/uL Absolute Neutrophils 7.88 H (1.2-6.7) k/cumm Absolute Monocytes 0.91 H (0.11-0.7) k/cumm Sodium 131 L (136-145) mmol/L Potassium 3.4 L (3.5-5.1) mmol/L Chloride 97 L (98-107) mmol/L Glucose 124 H (70-100) mg/dL Magnesium 1.5 L (1.8-2.4) mg/dL Vancomycin Trough 21.9 H* (10.0-20.0) ug/mL Vital Signs Temperature 36.0 C L 11/01/18 11:35 Temperature Source Tympanic 11/01/18 11:35 Pulse 86 11/01/18 11:35 Pulse Rhythm Regular 11/01/18 15:46 Pulse 92 H 10/25/18 23:40 Respiratory Rate 16 11/01/18 11:35 Respiratory Effort Non-Labored 11/01/18 15:46 Respiratory Depth Normal 11/01/18 15:46 Respiratory Pattern Normal 11/01/18 15:46 Blood Pressure 158/82 H 11/01/18 11:35 Blood Pressure Position Supine 10/25/18 20:27 Pulse Oximetry 100 11/01/18 11:35 Respiratory End-tidal CO2 31 10/28/18 10:58 Oxygen Delivery Method Room Air 11/01/18 11:35 Oxygen Flow Rate 0 11/01/18 11:35 Fraction of Inspired Oxygen (FIO2) 100 10/27/18 17:00 Pain Level 6 10/31/18 15:04 Comment 10/29/18 12:07 Intake & Output 10/31/18 11/01/18 11/01/18 23:59 11:59 23:59 Intake Total 970 / 1370 570 / 1670 1100 / 1670 Output Total 1095 / 2555 1087 / 1377 290 / 1377 Balance -125 / -1185 -517 / 293 810 / 293 Weight 49.5 kg Intake: IV 970 / 1020 370 / 520 150 / 520 Oral 200 / 500 300 / 500 Intake, Tube Feeding Amount 650 / 650 Output: Urine 800 / 1800 800 / 1050 250 / 1050 Stool 100 / 100 Output, Residual 295 / 755 187 / 227 40 / 227 Other: Urine Color Yellow Yellow Yellow Urine Appearance Clear Clear Clear Urine Odor Normal Normal Normal Comment mixed with stool Stool Size Moderate Moderate Stool Characteristics Soft Liquid Brown Voiding Methods Toilet Toilet Toilet Laboratory Results WBC 10.69 k/cumm (4.4-10.8) 11/01/18 06:30 RBC 2.99 m/cumm (4.00-5.20) L 11/01/18 06:30 Hgb 9.0 g/dL (12.0-15.5) L 11/01/18 06:30 Hct 27.4 % (36.0-46.0) L 11/01/18 06:30 MCV 91.6 fL (80-95) 11/01/18 06:30 MCH 30.1 pg (27.0-33.0) 11/01/18 06:30 MCHC 32.8 g/dL (32.0-36.0) 11/01/18 06:30 RDW 16.9 % (11.7-14.6) H 11/01/18 06:30 Plt Count 482 x1000/uL (130-400) H 11/01/18 06:30 MPV 8.6 fL (8.0-11.0) 11/01/18 06:30 Immature Gran % 0.3 11/01/18 06:30 Neutrophils % 73.7 11/01/18 06:30 Lymphocytes % 12.9 11/01/18 06:30 Monocytes % 8.5 11/01/18 06:30 Eosinophils % 4.3 11/01/18 06:30 Basophils % 0.3 11/01/18 06:30 Absolute Neutrophils 7.88 k/cumm (1.2-6.7) H 11/01/18 06:30 Absolute Lymphocytes 1.38 k/cumm (1.2-3.4) 11/01/18 06:30 Absolute Monocytes 0.91 k/cumm (0.11-0.7) H 11/01/18 06:30 Absolute Eosinophils 0.46 k/cumm (0.0-0.7) 11/01/18 06:30 Absolute Basophils 0.03 k/cumm (0.0-0.2) 11/01/18 06:30 Sodium 131 mmol/L (136-145) L 11/01/18 06:30 Potassium 3.4 mmol/L (3.5-5.1) L 11/01/18 06:30 Chloride 97 mmol/L (98-107) L 11/01/18 06:30 Carbon Dioxide 24.8 mmol/L (21.0-32.0) 11/01/18 06:30 Anion Gap 9.2 mmol/L (3-11) 11/01/18 06:30 BUN 8 mg/dL (7-18) 11/01/18 06:30 Creatinine 0.77 mg/dL (0.55-1.02) 11/01/18 06:30 Estimated GFR/1.73 m2 >= 60.00 (mL/min/1.73m2) 11/01/18 06:30 Glucose 124 mg/dL (70-100) H 11/01/18 06:30 Calcium 8.6 mg/dL (8.5-10.1) 11/01/18 06:30 Magnesium 1.5 mg/dL (1.8-2.4) L 11/01/18 06:30 Total Bilirubin 0.6 mg/dL (0.2-1.0) 10/26/18 07:10 AST 15 U/L (15-37) 10/26/18 07:10 ALT 6 U/L (12-78) L 10/26/18 07:10 Alkaline Phosphatase 86 U/L (46-116) 10/26/18 07:10 Troponin I < 0.02 ng/mL (0.00-0.06) 10/25/18 20:55 Total Protein 6.1 g/dL (6.4-8.2) L 10/26/18 07:10 Albumin 1.4 g/dL (3.4-5.0) L 10/26/18 07:10 Urine Color Yellow (Yellow) 10/31/18 12:40 Urine Clarity Clear 10/31/18 12:40 Urine pH 8.5 (5-8) H 10/31/18 12:40 Ur Specific [place] 1.020 (1.005-1.025) 10/31/18 12:40 Urine Protein Negative mg/dL (Negative) 10/31/18 12:40 Urine Ketones Negative mg/dL (Negative) 10/31/18 12:40 Urine Blood Negative (Negative) 10/31/18 12:40 Urine Nitrite Negative (Negative) 10/31/18 12:40 Urine Bilirubin Negative (Negative) 10/31/18 12:40 Urine Urobilinogen 0.2 EU/dL (Up TO 0.2) 10/31/18 12:40 Ur Leukocyte Esterase Negative (Negative) 10/31/18 12:40 Urine Glucose Negative mg/dL (Negative) 10/31/18 12:40 Vancomycin Trough 21.9 ug/mL (10.0-20.0) H* 11/01/18 11:15 Patient ABO/Rh O Positive 10/29/18 08:50 Antibody Screen Negative 10/29/18 08:50 Crossmatch See Detail 10/29/18 08:50
[2018-11-01] MEDS: Mirtazapine 15 MG TAB 7.5 MG NG (21:25)
[2018-11-02] MEDS: VANCOMYCIN 750 MG in Normal Saline 250 ML 250 MG IVPB ×2 (00:24→16:38)
[2018-11-02] MEDS: Metoclopramide 10 MG/2 ML VIAL 5 MG IVP ×2 (02:02→08:22)
[2018-11-02] MEDS: Acetaminophen Solution 650 MG/20.3 ML CUP 1000 MG UD ×2 (02:13→21:24)
[2018-11-02 03:46] VITALS: TEMP 36.8
[2018-11-02] MEDS: Normal Saline Flush 10 ML SYR IVP ×5 (06:06→23:54)
[2018-11-02] MEDS: PIPERACILLIN/TAZO 3.375 GM in Normal Saline 50 ML IVPB ×4 (06:06→23:55)
[2018-11-02] MEDS: Levothyroxine 50 MCG TAB UD (06:53)
[2018-11-02] MEDS: oxyCODONE 5 mg/Acetaminophen 325 mg TAB 1 TAB NG (06:53)
[2018-11-02 07:08] LABS: Abs Immature Grans 0.06 k/cumm (0.0-0.09); Absolute Eosinophil Count 0.61 k/cumm (0.0-0.7); Absolute Monocyte Count 1.14 k/cumm (0.11-0.7); Absolute Neutrophil Count 7.66 k/cumm (1.2-6.7); Basophils % 0.4; Eosinophils % 5.4; HCT 28.7 % (36.0-46.0); HGB 9.4 g/dL (12.0-15.5); Immature Grans % 0.5; Lymphocytes % 15.2; Mean Corp. HGB Concentration 32.8 g/dL (32.0-36.0); Mean Corpuscular Hemoglobin 30.2 pg (27.0-33.0); Mean Corpuscular Volume 92.3 fL (80-95); Mean Platelet Volume 8.8 fL (8.0-11.0); Monocytes % 10.2; Neutrophils % 68.3; Platelet Count 518 x1000/uL (130-400); RBC 3.11 m/cumm (4.00-5.20); RBC Distribution Width 16.8 % (11.7-14.6); White Blood Cell Count 11.22 k/cumm (4.4-10.8)
[2018-11-02 07:10] LABS: Absolute Basophil Count 0.04 k/cumm (0.0-0.2); Absolute Lymphocyte Count 1.71 k/cumm (1.2-3.4)
[2018-11-02 07:12] LABS: Anion Gap 7.9 mmol/L (3-11); BUN 10 mg/dL (7-18); CO2 25.1 mmol/L (21.0-32.0); CREATININE 0.82 mg/dL (0.55-1.02); Chloride 100 mmol/L (98-107); Glucose 128 mg/dL (70-100); Magnesium 1.5 mg/dL (1.8-2.4); Sodium 133 mmol/L (136-145)
[2018-11-02 07:35] VITALS: BP 142/70; PULSE 91; RESP 16; TEMP 36.6; O2SAT 97
[2018-11-02] MEDS: Magnesium Oxide 400 MG TAB 800 MG NG ×3 (08:20→20:30)
[2018-11-02] MEDS: Thiamine 100 MG TAB UD (08:20)
[2018-11-02] MEDS: Folic Acid 1 MG TAB UD (08:20)
[2018-11-02] MEDS: Venlafaxine 75 MG TAB NG ×2 (08:21→20:40)
[2018-11-02] MEDS: Pantoprazole 40 MG VIAL IVP (08:21)
[2018-11-02] MEDS: Metoprolol 12.5 MG TAB NG ×2 (08:21→21:22)
--- NOTE | 2018-11-02 08:21 | PDOC.CMPRO ---
- If Service Date Differs Date of service: 11/02/18 Time of Service: 08:21 Care Management Progress Note S/O: Cece continues to have formula residuals per report. Provider will adjust her medications to assist with absorption. A: 53 year old female admitted with hypokalemia and hypomagnesemia with esophageal cancer. P: Cece remains acute today with no change in status. Anticipate patient will discharge home with resumption of services vs. SNF. Provider will continue to attempt to contact [facility] follow up plan for consultation and treatment plan for Cece. Transportation pending discharge disposition. CM will continue to offer support to patient, family, and care team regarding discharge planning and disposition.
[2018-11-02] MEDS: Rosuvastatin 5 MG TAB UD (08:22)
[2018-11-02 09:25] LABS: Vancomycin, Trough 23.5 ug/mL (10.0-20.0)
[2018-11-02] MEDS: MAGNESIUM SULFATE 4 GM/100 ML BAG IVPB (09:50)
[2018-11-02 11:40] VITALS: BP 135/76; PULSE 102; RESP 17; TEMP 36.8; O2SAT 98
[2018-11-02] MEDS: Metoclopramide 10 MG/2 ML VIAL IVP ×3 (12:05→23:53)
[2018-11-02 15:52] VITALS: BP 172/83; PULSE 98; RESP 20; TEMP 36.9; O2SAT 100
--- NOTE | 2018-11-02 17:09 | W.PM.PROGNOT ---
Date of Service Date of service: 11/02/18 Time of Service: 17:09 Assessment and Plan (1) Aspiration pneumonia: Current visit: No Status: Acute Improved clinically, though leucocytosis is slightly worse. I fear the patient is continuously aspirating. Patient is not compliant with elevating head of her bed. Continue vancomycin/zosyn, encourage compliance with aspiration precautions. Continue reglan to help with GI motility/lowering TF residuals. (2) Uncontrolled pain: Current visit: Yes Status: Acute No change in pain regimen (3) Hypertensive urgency: Current visit: Yes Status: Resolved Continue low dose BB. (4) Squamous cell carcinoma of esophagus: Current visit: No Status: Acute with dysphagia, s/p PEG on 10/28/18. Continue reglan to help with residuals. Patient was supposed to have a radiation oncology appointment 11/01 if she were outpatient, but she is still requiring hospitalization. Will attempt to reach Dr Dia again tomorrow re possibility of inpatient radiation therapy at a facility which can provide it. (5) Bacteremia: Current visit: No Status: Resolved Completed nafcillin. PICC line recultured - blood cx negative. (6) Malnutrition: Current visit: No Status: Chronic As above. Continue current tube feeding formula. Qualifiers: Malnutrition type: protein-calorie malnutrition Protein-calorie malnutrition severity: severe Qualified Code(s): E43 - Unspecified severe protein-calorie malnutrition (7) Hypokalemia: Current visit: No Status: Resolved Monitor (8) Hypomagnesemia: Current visit: No Status: Acute Replete (9) Tobacco abuse: Current visit: No Status: Chronic Continue nicotine replacement (10) Depression: Current visit: No Status: Chronic Continue venlafaxine, mirtazapine. Watch for signs of serotonin syndrome. (11) Anemia: Current visit: No Status: Chronic S/p transfusion of 1 unit pRBC's on this admission. H/H stable. No evidence of active GI bleed. Did have hematemesis on this admission. Continue PPI. (12) Discharge planning issues: Current visit: Yes Status: Acute [place] [facility] [place] Full code. (13) DVT prophylaxis: Current visit: No Status: Acute SCD's Subjective Interval history since last seen: Continues to have abdominal pain around the PEG site, especially so when she turns. The cough is less productive and less frequent. Denies dizziness, chest pain, shortness of breath, nausea, vomiting. Exam Narrative Exam Narrative: General: A&Ox3, sitting comfortably in bed, looks depressed HEENT: EOMI, MMM Heart: RRR, no m/r/g Lungs: Diminished breath sounds at B bases; Breath sounds no longer coarse. Improved aeration. GI: abdomen tender in LUQ (PEG site) Extremities: no e/c/c BLE's Objective Objective Clinical Data: Abnormal lab results 11/02/18 11/02/18 11/02/18 Range/Units 06:40 06:40 08:55 WBC 11.22 H (4.4-10.8) k/cumm RBC 3.11 L (4.00-5.20) m/cumm Hgb 9.4 L (12.0-15.5) g/dL Hct 28.7 L (36.0-46.0) % RDW 16.8 H (11.7-14.6) % Plt Count 518 H (130-400) x1000/uL Absolute Neutrophils 7.66 H (1.2-6.7) k/cumm Absolute Monocytes 1.14 H (0.11-0.7) k/cumm Sodium 133 L (136-145) mmol/L Glucose 128 H (70-100) mg/dL Magnesium 1.5 L (1.8-2.4) mg/dL Vancomycin Trough 23.5 H* (10.0-20.0) ug/mL Vital Signs Temperature 36.9 C 11/02/18 15:52 Temperature Source Tympanic 11/02/18 15:52 Pulse 98 H 11/02/18 15:52 Pulse Rhythm Regular 11/02/18 15:30 Pulse 92 H 10/25/18 23:40 Respiratory Rate 20 11/02/18 15:52 Respiratory Effort Non-Labored 11/02/18 15:30 Respiratory Depth Normal 11/02/18 15:30 Respiratory Pattern Normal 11/02/18 15:30 Blood Pressure 172/83 H 11/02/18 15:52 Blood Pressure Position Supine 10/25/18 20:27 Pulse Oximetry 100 11/02/18 15:52 Respiratory End-tidal CO2 31 10/28/18 10:58 Oxygen Delivery Method Room Air 11/02/18 15:52 Oxygen Flow Rate 0 11/02/18 15:52 Fraction of Inspired Oxygen (FIO2) 100 10/27/18 17:00 Pain Level 6 10/31/18 15:04 Comment 10/29/18 12:07 Intake & Output 11/01/18 11/02/18 11/02/18 23:59 11:59 23:59 Intake Total 1655 / 2225 760 / 822 62 / 822 Output Total 1415 / 2502 855 / 885 30 / 885 Balance 240 / -277 -95 / -63 32 / -63 Weight 49.4 kg Intake: IV 505 / 875 400 / 462 62 / 462 Oral 500 / 700 360 / 360 Intake, Tube Feeding Amount 650 / 650 Output: Urine 1000 / 1800 700 / 700 Output, Residual 415 / 602 155 / 185 30 / 185 Other: Urine Color Yellow Yellow Urine Appearance Clear Clear Urine Odor Normal Normal Stool Size Moderate Voiding Methods Toilet Toilet Laboratory Results WBC 11.22 k/cumm (4.4-10.8) H 11/02/18 06:40 RBC 3.11 m/cumm (4.00-5.20) L 11/02/18 06:40 Hgb 9.4 g/dL (12.0-15.5) L 11/02/18 06:40 Hct 28.7 % (36.0-46.0) L 11/02/18 06:40 MCV 92.3 fL (80-95) 11/02/18 06:40 MCH 30.2 pg (27.0-33.0) 11/02/18 06:40 MCHC 32.8 g/dL (32.0-36.0) 11/02/18 06:40 RDW 16.8 % (11.7-14.6) H 11/02/18 06:40 Plt Count 518 x1000/uL (130-400) H 11/02/18 06:40 MPV 8.8 fL (8.0-11.0) 11/02/18 06:40 Immature Gran % 0.5 11/02/18 06:40 Neutrophils % 68.3 11/02/18 06:40 Lymphocytes % 15.2 11/02/18 06:40 Monocytes % 10.2 11/02/18 06:40 Eosinophils % 5.4 11/02/18 06:40 Basophils % 0.4 11/02/18 06:40 Absolute Neutrophils 7.66 k/cumm (1.2-6.7) H 11/02/18 06:40 Absolute Lymphocytes 1.71 k/cumm (1.2-3.4) 11/02/18 06:40 Absolute Monocytes 1.14 k/cumm (0.11-0.7) H 11/02/18 06:40 Absolute Eosinophils 0.61 k/cumm (0.0-0.7) 11/02/18 06:40 Absolute Basophils 0.04 k/cumm (0.0-0.2) 11/02/18 06:40 Sodium 133 mmol/L (136-145) L 11/02/18 06:40 Potassium 4.0 mmol/L (3.5-5.1) 11/02/18 06:40 Chloride 100 mmol/L (98-107) 11/02/18 06:40 Carbon Dioxide 25.1 mmol/L (21.0-32.0) 11/02/18 06:40 Anion Gap 7.9 mmol/L (3-11) 11/02/18 06:40 BUN 10 mg/dL (7-18) 11/02/18 06:40 Creatinine 0.82 mg/dL (0.55-1.02) 11/02/18 06:40 Estimated GFR/1.73 m2 >= 60.00 (mL/min/1.73m2) 11/02/18 06:40 Glucose 128 mg/dL (70-100) H 11/02/18 06:40 Calcium 9.0 mg/dL (8.5-10.1) 11/02/18 06:40 Magnesium 1.5 mg/dL (1.8-2.4) L 11/02/18 06:40 Total Bilirubin 0.6 mg/dL (0.2-1.0) 10/26/18 07:10 AST 15 U/L (15-37) 10/26/18 07:10 ALT 6 U/L (12-78) L 10/26/18 07:10 Alkaline Phosphatase 86 U/L (46-116) 10/26/18 07:10 Troponin I < 0.02 ng/mL (0.00-0.06) 10/25/18 20:55 Total Protein 6.1 g/dL (6.4-8.2) L 10/26/18 07:10 Albumin 1.4 g/dL (3.4-5.0) L 10/26/18 07:10 Urine Color Yellow (Yellow) 10/31/18 12:40 Urine Clarity Clear 10/31/18 12:40 Urine pH 8.5 (5-8) H 10/31/18 12:40 Ur Specific [place] 1.020 (1.005-1.025) 10/31/18 12:40 Urine Protein Negative mg/dL (Negative) 10/31/18 12:40 Urine Ketones Negative mg/dL (Negative) 10/31/18 12:40 Urine Blood Negative (Negative) 10/31/18 12:40 Urine Nitrite Negative (Negative) 10/31/18 12:40 Urine Bilirubin Negative (Negative) 10/31/18 12:40 Urine Urobilinogen 0.2 EU/dL (Up TO 0.2) 10/31/18 12:40 Ur Leukocyte Esterase Negative (Negative) 10/31/18 12:40 Urine Glucose Negative mg/dL (Negative) 10/31/18 12:40 Vancomycin Trough 23.5 ug/mL (10.0-20.0) H* 11/02/18 08:55 Patient ABO/Rh O Positive 10/29/18 08:50 Antibody Screen Negative 10/29/18 08:50 Crossmatch See Detail 10/29/18 08:50
--- NOTE | 2018-11-02 17:14 | PGE_ITS ---
Date of Service Date of service: 11/02/18 Time of Service: 17:09 Assessment and Plan (1) Aspiration pneumonia: Current visit: No Status: Acute Improved clinically, though leucocytosis is slightly worse. I fear the patient is continuously aspirating. Patient is not compliant with elevating head of her bed. Continue vancomycin/zosyn, encourage compliance with aspiration precautions. Continue reglan to help with GI motility/lowering TF residuals. (2) Uncontrolled pain: Current visit: Yes Status: Acute No change in pain regimen (3) Hypertensive urgency: Current visit: Yes Status: Resolved Continue low dose BB. (4) Squamous cell carcinoma of esophagus: Current visit: No Status: Acute with dysphagia, s/p PEG on 10/28/18. Continue reglan to help with residuals. Patient was supposed to have a radiation oncology appointment 11/01 if she were outpatient, but she is still requiring hospitalization. Will attempt to reach Dr Dia again tomorrow re possibility of inpatient radiation therapy at a [facility] which can provide it. (5) Bacteremia: Current visit: No Status: Resolved Completed nafcillin. PICC line recultured - blood cx negative. (6) Malnutrition: Current visit: No Status: Chronic As above. Continue current tube feeding formula. Qualifiers: Malnutrition type: protein-calorie malnutrition Protein-calorie malnutrition severity: severe Qualified Code(s): E43 - Unspecified severe pro tein-calorie malnutrition (7) Hypokalemia: Current visit: No Status: Resolved Monitor (8) Hypomagnesemia: Current visit: No Status: Acute Replete (9) Tobacco abuse: Current visit: No Status: Chronic Continue nicotine replacement (10) Depression: Current visit: No Status: Chronic Continue venlafaxine, mirtazapine. Watch for signs of serotonin syndrome. (11) Anemia: Current visit: No Status: Chronic S/p transfusion of 1 unit pRBC's on this admission. H/H stable. No evidence of active GI bleed. Did have hematemesis on this admission. Continue PPI. (12) Discharge planning issues: Current visit: Yes Status: Acute May require transfer to [facility] [place]. Full code. (13) DVT prophylaxis: Current visit: No Status: Acute SCD's Subjective Interval history since last seen: Continues to have abdominal pain around the PEG site, especially so when she turns. The cough is less productive and less frequent. Denies dizziness, chest pain, shortness of breath, nausea, vomiting. Exam Narrative Exam Narrative: General: A&Ox3, sitting comfortably in bed, looks depressed HEENT: EOMI, MMM Heart: RRR, no m/r/g Lungs: Diminished breath sounds at B bases; Breath sounds no longer coarse. Improved aeration. GI: abdomen tender in LUQ (PEG site) Extremities: no e/c/c BLE's Objective Objective Clinical Data: Abnormal lab results 11/02/18 11/02/18 11/02/18 Range/Units 06:40 06:40 08:55 WBC 11.22 H (4.4-10.8) k/cumm RBC 3.11 L (4.00-5.20) m/cumm Hgb 9.4 L (12.0-15.5) g/dL Hct 28.7 L (36.0-46.0) % RDW 16.8 H (11.7-14.6) % Plt Count 518 H (130-400) x1000/uL Absolute Neutrophils 7.66 H (1.2-6.7) k/cumm Absolute Monocytes 1.14 H (0.11-0.7) k/cumm Sodium 133 L (136-145) mmol/L Glucose 128 H (70-100) mg/dL Magnesium 1.5 L (1.8-2.4) mg/dL Vancomycin Trough 23.5 H* (10.0-20.0) ug/mL Vital Signs Temperature 36.9 C 11/02/18 15:52 Temperature Source Tympanic 11/02/18 15:52 Pulse 98 H 11/02/18 15:52 Pulse Rhythm Regular 11/02/18 15:30 Pulse 92 H 10/25/18 23:40 Respiratory Rate 20 11/02/18 15:52 Respiratory Effort Non-Labored 11/02/18 15:30 Respiratory Depth Normal 11/02/18 15:30 Respiratory Pattern Normal 11/02/18 15:30 Blood Pressure 172/83 H 11/02/18 15:52 Blood Pressure Position Supine 10/25/18 20:27 Pulse Oximetry 100 11/02/18 15:52 Respiratory End-tidal CO2 31 10/28/18 10:58 Oxygen Delivery Method Room Air 11/02/18 15:52 Oxygen Flow Rate 0 12/25/18 15:52 Fraction of Inspired Oxygen (FIO2) 100 10/27/18 17:00 Pain Level 6 10/31/18 15:04 Comment 10/29/18 12:07 Intake & Output 11/01/18 11/02/18 11/02/18 23:59 11:59 23:59 Intake Total 1655 / 2225 760 / 822 62 / 822 Output Total 1415 / 2502 855 / 885 30 / 885 Balance 240 / -277 -95 / -63 32 / -63 Weight 49.4 kg Intake: IV 505 / 875 400 / 462 62 / 462 Oral 500 / 700 360 / 360 Intake, Tube Feeding Amount 650 / 650 Output: Urine 1000 / 1800 700 / 700 Output, Residual 415 / 602 155 / 185 30 / 185 Other: Urine Color Yellow Yellow Urine Appearance Clear Clear Urine Odor Normal Normal Stool Size Moderate Voiding Methods Toilet Toilet Laboratory Results WBC 11.22 k/cumm (4.4-10.8) H 11/02/18 06:40 RBC 3.11 m/cumm (4.00-5.20) L 11/02/18 06:40 Hgb 9.4 g/dL (12.0-15.5) L 11/02/18 06:40 Hct 28.7 % (36.0-46.0) L 11/02/18 06:40 MCV 92.3 fL (80-95) 11/02/18 06:40 MCH 30.2 pg (27.0-33.0) 11/02/18 06:40 MCHC 32.8 g/dL (32.0-36.0) 11/02/18 06:40 RDW 16.8 % (11.7-14.6) H 11/02/18 06:40 Plt Count 518 x1000/uL (130-400) H 11/02/18 06:40 MPV 8.8 fL (8.0-11.0) 11/02/18 06:40 Immature Gran % 0.5 11/02/18 06:40 Neutrophils % 68.3 11/02/18 06:40 Lymphocytes % 15.2 11/02/18 06:40 Monocytes % 10.2 11/02/18 06:40 Eosinophils % 5.4 11/02/18 06:40 Basophils % 0.4 11/02/18 06:40 Absolute Neutrophils 7.66 k/cumm (1.2-6.7) H 11/02/18 06:40 Absolute Lymphocytes 1.71 k/cumm (1.2-3.4) 11/02/18 06:40 Absolute Monocytes 1.14 k/cumm (0.11-0.7) H 11/02/18 06:40 Absolute Eosinophils 0.61 k/cumm (0.0-0.7) 11/02/18 06:40 Absolute Basophils 0.04 k/cumm (0.0-0.2) 11/02/18 06:40 Sodium 133 mmol/L (136-145) L 11/02/18 06:40 Potassium 4.0 mmol/L (3.5-5.1) 11/02/18 06:40 Chloride 100 mmol/L (98-107) 11/02/18 06:40 Carbon Dioxide 25.1 mmol/L (21.0-32.0) 11/02/18 06:40 Anion Gap 7.9 mmol/L (3-11) 11/02/18 06:40 BUN 10 mg/dL (7-18) 11/02/18 06:40 Creatinine 0.82 mg/dL (0.55-1.02) 11/02/18 06:40 Estimated GFR/1.73 m2 >= 60.00 (mL/min/1.73m2) 11/02/18 06:40 Glucose 128 mg/dL (70-100) H 11/02/18 06:40 Calcium 9.0 mg/dL (8.5-10.1) 11/02/18 06:40 Magnesium 1.5 mg/dL (1.8-2.4) L 11/02/18 06:40 Total Bilirubin 0.6 mg/dL (0.2-1.0) 10/26/18 07:10 AST 15 U/L (15-37) 10/26/18 07:10 ALT 6 U/L (12-78) L 10/26/18 07:10 Alkaline Phosphatase 86 U/L (46-116) 10/26/18 07:10 Troponin I < 0.02 ng/mL (0.00-0.06) 10/25/18 20:55 Total Protein 6.1 g/dL (6.4-8.2) L 10/26/18 07:10 Albumin 1.4 g/dL (3.4-5.0) L 10/26/18 07:10 Urine Color Yellow (Yellow) 10/31/18 12:40 Urine Clarity Clear 10/31/18 12:40 Urine pH 8.5 (5-8) H 10/31/18 12:40 Ur Specific [place] 1.020 (1.005-1.025) 10/31/18 12:40 Urine Protein Negative mg/dL (Negative) 10/31/18 12:40 Urine Ketones Negative mg/dL (Negative) 10/31/18 12:40 Urine Blood Negative (Negative) 10/31/18 12:40 Urine Nitrite Negative (Negative) 10/31/18 12:40 Urine Bilirubin Negative (Negative) 10/31/18 12:40 Urine Urobilinogen 0.2 EU/dL (Up TO 0.2) 10/31/18 12:40 Ur Leukocyte Esterase Negative (Negative) 10/31/18 12:40 Urine Glucose Negative mg/dL (Negative) 10/31/18 12:40 Vancomycin Trough 23.5 ug/mL (10.0-20.0) H* 11/02/18 08:55 Patient ABO/Rh O Positive 10/29/18 08:50 Antibody Screen Negative 10/29/18 08:50 Crossmatch See Detail 10/29/18 08:50
[2018-11-02 19:48] VITALS: BP 168/81; PULSE 110; RESP 18; TEMP 36.7; O2SAT 96
[2018-11-02] MEDS: Mirtazapine 15 MG TAB 7.5 MG NG (21:23)
[2018-11-02 23:39] VITALS: BP 124/72; PULSE 89; RESP 18; TEMP 36.2; O2SAT 97
[2018-11-03] VITALS (7 sets, daily range): BP systolic 128–174; BP diastolic 70–84; PULSE 93–102; RESP 16–20; TEMP 36.1–37.6; O2SAT 96–99
[2018-11-03] MEDS: VANCOMYCIN 750 MG in Normal Saline 250 ML 250 MG IVPB ×2 (03:25→16:32)
[2018-11-03] MEDS: Levothyroxine 50 MCG TAB UD (05:18)
[2018-11-03] MEDS: Normal Saline Flush 10 ML SYR IVP ×4 (05:19→23:21)
[2018-11-03] MEDS: Metoclopramide 10 MG/2 ML VIAL IVP ×4 (05:19→23:21)
[2018-11-03] MEDS: PIPERACILLIN/TAZO 3.375 GM in Normal Saline 50 ML IVPB ×4 (05:20→23:22)
[2018-11-03 07:18] LABS: Abs Immature Grans 0.13 k/cumm (0.0-0.09); Absolute Basophil Count 0.05 k/cumm (0.0-0.2); Absolute Eosinophil Count 0.62 k/cumm (0.0-0.7); Absolute Lymphocyte Count 1.64 k/cumm (1.2-3.4); Absolute Monocyte Count 1.19 k/cumm (0.11-0.7); Basophils % 0.4; Eosinophils % 5.4; HCT 28.7 % (36.0-46.0); HGB 9.5 g/dL (12.0-15.5); Immature Grans % 1.1; Lymphocytes % 14.3; Mean Corp. HGB Concentration 33.1 g/dL (32.0-36.0); Mean Corpuscular Hemoglobin 30.8 pg (27.0-33.0); Mean Corpuscular Volume 93.2 fL (80-95); Mean Platelet Volume 8.9 fL (8.0-11.0); Monocytes % 10.4; Neutrophils % 68.4; Platelet Count 516 x1000/uL (130-400); RBC 3.08 m/cumm (4.00-5.20); RBC Distribution Width 16.7 % (11.7-14.6); White Blood Cell Count 11.45 k/cumm (4.4-10.8)
[2018-11-03 07:19] LABS: Absolute Neutrophil Count 7.83 k/cumm (1.2-6.7)
[2018-11-03 07:29] LABS: Anion Gap 15.2 mmol/L (3-11); BUN 10 mg/dL (7-18); CO2 18.8 mmol/L (21.0-32.0); CREATININE 0.71 mg/dL (0.55-1.02); Calcium 9.7 mg/dL (8.5-10.1); Chloride 99 mmol/L (98-107); Glucose 120 mg/dL (70-100); Magnesium 1.6 mg/dL (1.8-2.4); Potassium 4.8 mmol/L (3.5-5.1); Sodium 133 mmol/L (136-145)
[2018-11-03] MEDS: Pantoprazole 40 MG VIAL IVP (08:40)
[2018-11-03] MEDS: Venlafaxine 75 MG TAB NG ×2 (08:41→20:49)
[2018-11-03] MEDS: Magnesium Oxide 400 MG TAB 800 MG NG ×3 (08:41→20:48)
[2018-11-03] MEDS: Folic Acid 1 MG TAB UD (08:41)
[2018-11-03] MEDS: Thiamine 100 MG TAB UD (08:41)
[2018-11-03] MEDS: Rosuvastatin 5 MG TAB UD (08:41)
[2018-11-03] MEDS: Metoprolol 12.5 MG TAB NG ×2 (08:42→20:48)
[2018-11-03] MEDS: Acetaminophen Solution 650 MG/20.3 ML CUP 1000 MG UD ×2 (09:02→21:08)
--- NOTE | 2018-11-03 09:14 | NUR.NOTE ---
When nursing staff entered pts room this AM the head of bed was at 13 degrees. Pt was educated on the importance of keeping the head of bed at least 30 degrees while receiving continuous tube feedings. Lungs sound clear throughout. Nursing Note:
[2018-11-03] MEDS: MAGNESIUM SULFATE 4 GM/100 ML BAG IVPB (12:15)
--- NOTE | 2018-11-03 13:43 | PDOC.CMPRO ---
- If Service Date Differs Date of service: 11/03/18 Time of Service: 13:43 Care Management Progress Note S/O: Cece is lying in bed when this engineering technical writer visits this afternoon. She has shorter hair and states that she received a haircut on [place] [address] which she is happy about. CM updated Cece in regards to referral to [facility] states that they cannot accept Cece. Cece states that [facility] in [facility] or [facility] [place]. CM explained that these are senior apartments, and also discussed the process of application as well as the waiting list. Cece states that she is mainly interested in one of the two above at this time. CM reviewed other SNF options such as [facility], [facility], [facility], [facility], and Cece states that she will think about these options. A: 53 year old female admitted with hypokalemia and hypomagnesemia with esophageal cancer. P: Cece remains acute today with no change in status. Anticipate patient will discharge home with resumption of services vs. SNF. Provider will continue to attempt to contact [facility] follow up plan for consultation and treatment plan for Cece. Transportation pending discharge disposition. CM will continue to offer support to patient, family, and care team regarding discharge planning and disposition.
--- NOTE | 2018-11-03 13:51 | CMPROGNOTE_ITS ---
- If Service Date Differs Date of service: 11/03/18 Time of Service: 13:43 Care Management Progress Note S/O: Cece is lying in bed when this law writer visits this afternoon. She has shorter hair and states that she received a haircut on [place] [address] which she is happy about. CM updated Cece in regards to referral to [facility] states that they cannot accept Cece. Cece [facility] that [facility] or [facility]. CM explained that these are senior apartments, and also discussed the process of application as well as the waiting list. Cece states that she is mainly interested in one of the two above at this time. CM reviewed other SNF options such as [facility], [facility], [facility], [facility], and Cece states that she will think about these options. A: 53 year old female admitted with hypokalemia and hypomagnesemia with esophageal cancer. P: Cece remains acute today with no change in status. Anticipate patient will discharge home with resumption of services vs. SNF. Provider will continue to attempt to contact [facility] follow up plan for consultation and treatment plan for Cece. Transportation pending discharge disposition. CM will continue to offer support to patient, family, and care team regarding discharge planning and disposition.
--- NOTE | 2018-11-03 18:29 | W.PM.PROGNOT ---
Date of Service Date of service: 11/03/18 Time of Service: 16:15 Assessment and Plan (1) Aspiration pneumonia: Current visit: No Status: Acute Improved clinically, though leucocytosis is slightly worse. I saw the patient laying flat in bed today and again explained to her how important it was for her to elevate the head of the bed. She verbalized understanding. Continue vancomycin/zosyn, encourage compliance with aspiration precautions. Continue reglan to help with GI motility/lowering TF residuals. Would start to taper tomorrow. (2) Uncontrolled pain: Current visit: Yes Status: Acute No change in pain regimen (3) Hypertensive urgency: Current visit: Yes Status: Resolved Continue low dose BB. (4) Squamous cell carcinoma of esophagus: Current visit: No Status: Acute with dysphagia, s/p PEG on 10/28/18. Continue reglan to help with residuals. I spoke with Dr Dia (radiation oncology) today. She agrees that the patient would benefit from transfer to [facility] for initiation of radiation there. Unfortunately, there are no beds available at [facility] today. Will check again tomorrow. It is preferable that the patient go to [facility] rather than any other facility as this is where all her care has been. (5) Bacteremia: Current visit: No Status: Resolved Completed nafcillin. PICC line recultured - blood cx negative. (6) Malnutrition: Current visit: No Status: Chronic As above. Continue current tube feeding formula. Qualifiers: Malnutrition type: protein-calorie malnutrition Protein-calorie malnutrition severity: severe Qualified Code(s): E43 - Unspecified severe protein-calorie malnutrition (7) Hypokalemia: Current visit: No Status: Resolved Monitor (8) Hypomagnesemia: Current visit: No Status: Acute Replete. Improving. (9) Tobacco abuse: Current visit: No Status: Chronic Continue nicotine replacement (10) Depression: Current visit: No Status: Chronic Continue venlafaxine, mirtazapine. Watch for signs of serotonin syndrome. (11) Anemia: Current visit: No Status: Chronic S/p transfusion of 1 unit pRBC's on this admission. H/H stable. No evidence of active GI bleed. Did have hematemesis on this admission. Continue PPI. (12) Discharge planning issues: Current visit: Yes Status: Acute xfer to [facility] when bed available Full code. (13) DVT prophylaxis: Current visit: No Status: Acute SCD's Subjective Interval history since last seen: Ms Welch is doing a little better today, as far as her abdominal pain around the PEG and her cough. She denies dizziness, chest pain, nausea, vomiting. Exam Narrative Exam Narrative: General: A&Ox3, sitting comfortably in bed, looks depressed HEENT: EOMI, MMM Heart: RRR, no m/r/g Lungs: Diminished breath sounds at B bases; Improved aeration. GI: abdomen tender in LUQ (PEG site) Extremities: no e/c/c BLE's Objective Objective Clinical Data: Abnormal lab results 11/03/18 11/03/18 Range/Units 06:55 06:55 WBC 11.45 H (4.4-10.8) k/cumm RBC 3.08 L (4.00-5.20) m/cumm Hgb 9.5 L (12.0-15.5) g/dL Hct 28.7 L (36.0-46.0) % RDW 16.7 H (11.7-14.6) % Plt Count 516 H (130-400) x1000/uL Absolute Neutrophils 7.83 H (1.2-6.7) k/cumm Absolute Monocytes 1.19 H (0.11-0.7) k/cumm Sodium 133 L (136-145) mmol/L Carbon Dioxide 18.8 L (21.0-32.0) mmol/L Anion Gap 15.2 H (3-11) mmol/L Glucose 120 H (70-100) mg/dL Magnesium 1.6 L (1.8-2.4) mg/dL Vital Signs Temperature 36.1 C L 11/03/18 15:44 Temperature Source Tympanic 11/03/18 15:44 Pulse 96 H 11/03/18 15:44 Pulse Rhythm Regular 11/03/18 09:18 Pulse 92 H 10/25/18 23:40 Respiratory Rate 18 11/03/18 15:44 Respiratory Effort Non-Labored 11/03/18 09:18 Respiratory Depth Normal 11/03/18 09:18 Respiratory Pattern Normal 11/03/18 09:18 Blood Pressure 133/75 11/03/18 15:44 Blood Pressure Position Supine 10/25/18 20:27 Pulse Oximetry 98 11/03/18 15:44 Respiratory End-tidal CO2 31 10/28/18 10:58 Oxygen Delivery Method Room Air 11/03/18 15:44 Oxygen Flow Rate 0 11/03/18 15:44 Fraction of Inspired Oxygen (FIO2) 100 10/27/18 17:00 Pain Level 6 11/03/18 09:02 Comment 10/29/18 12:07 Intake & Output 11/02/18 11/03/18 11/03/18 23:59 11:59 23:59 Intake Total 802 / 1562 350 / 1290 940 / 1290 Output Total 995 / 1850 560 / 1390 830 / 1390 Balance -193 / -288 -210 / -100 110 / -100 Weight 48.9 kg Intake: IV 362 / 762 350 / 750 400 / 750 Oral 240 / 600 540 / 540 Intake, Tube Feeding Amount 200 / 200 Output: Urine 900 / 1600 500 / 1150 650 / 1150 Output, Residual 95 / 250 60 / 240 180 / 240 Other: Urine Color Pale Yellow Yellow Yellow Urine Appearance Clear Clear Clear Urine Odor Normal Stool Size Small Small Stool Characteristics Soft Brown Voiding Methods Toilet Toilet Laboratory Results WBC 11.45 k/cumm (4.4-10.8) H 11/03/18 06:55 RBC 3.08 m/cumm (4.00-5.20) L 11/03/18 06:55 Hgb 9.5 g/dL (12.0-15.5) L 11/03/18 06:55 Hct 28.7 % (36.0-46.0) L 11/03/18 06:55 MCV 93.2 fL (80-95) 11/03/18 06:55 MCH 30.8 pg (27.0-33.0) 11/03/18 06:55 MCHC 33.1 g/dL (32.0-36.0) 11/03/18 06:55 RDW 16.7 % (11.7-14.6) H 11/03/18 06:55 Plt Count 516 x1000/uL (130-400) H 11/03/18 06:55 MPV 8.9 fL (8.0-11.0) 11/03/18 06:55 Immature Gran % 1.1 11/03/18 06:55 Neutrophils % 68.4 11/03/18 06:55 Lymphocytes % 14.3 11/03/18 06:55 Monocytes % 10.4 11/03/18 06:55 Eosinophils % 5.4 11/03/18 06:55 Basophils % 0.4 11/03/18 06:55 Absolute Neutrophils 7.83 k/cumm (1.2-6.7) H 11/03/18 06:55 Absolute Lymphocytes 1.64 k/cumm (1.2-3.4) 11/03/18 06:55 Absolute Monocytes 1.19 k/cumm (0.11-0.7) H 11/03/18 06:55 Absolute Eosinophils 0.62 k/cumm (0.0-0.7) 11/03/18 06:55 Absolute Basophils 0.05 k/cumm (0.0-0.2) 11/03/18 06:55 Sodium 133 mmol/L (136-145) L 11/03/18 06:55 Potassium 4.8 mmol/L (3.5-5.1) 11/03/18 06:55 Chloride 99 mmol/L (98-107) 11/03/18 06:55 Carbon Dioxide 18.8 mmol/L (21.0-32.0) L 11/03/18 06:55 Anion Gap 15.2 mmol/L (3-11) H 11/03/18 06:55 BUN 10 mg/dL (7-18) 11/03/18 06:55 Creatinine 0.71 mg/dL (0.55-1.02) 11/03/18 06:55 Estimated GFR/1.73 m2 >= 60.00 (mL/min/1.73m2) 11/03/18 06:55 Glucose 120 mg/dL (70-100) H 11/03/18 06:55 Calcium 9.7 mg/dL (8.5-10.1) 11/03/18 06:55 Magnesium 1.6 mg/dL (1.8-2.4) L 11/03/18 06:55 Total Bilirubin 0.6 mg/dL (0.2-1.0) 10/26/18 07:10 AST 15 U/L (15-37) 10/26/18 07:10 ALT 6 U/L (12-78) L 10/26/18 07:10 Alkaline Phosphatase 86 U/L (46-116) 10/26/18 07:10 Troponin I < 0.02 ng/mL (0.00-0.06) 10/25/18 20:55 Total Protein 6.1 g/dL (6.4-8.2) L 10/26/18 07:10 Albumin 1.4 g/dL (3.4-5.0) L 10/26/18 07:10 Urine Color Yellow (Yellow) 10/31/18 12:40 Urine Clarity Clear 10/31/18 12:40 Urine pH 8.5 (5-8) H 10/31/18 12:40 Ur Specific [place] 1.020 (1.005-1.025) 10/31/18 12:40 Urine Protein Negative mg/dL (Negative) 10/31/18 12:40 Urine Ketones Negative mg/dL (Negative) 10/31/18 12:40 Urine Blood Negative (Negative) 10/31/18 12:40 Urine Nitrite Negative (Negative) 10/31/18 12:40 Urine Bilirubin Negative (Negative) 10/31/18 12:40 Urine Urobilinogen 0.2 EU/dL (Up TO 0.2) 10/31/18 12:40 Ur Leukocyte Esterase Negative (Negative) 10/31/18 12:40 Urine Glucose Negative mg/dL (Negative) 10/31/18 12:40 Vancomycin Trough 23.5 ug/mL (10.0-20.0) H* 11/02/18 08:55 Patient ABO/Rh O Positive 10/29/18 08:50 Antibody Screen Negative 10/29/18 08:50 Crossmatch See Detail 10/29/18 08:50
[2018-11-03] MEDS: Mirtazapine 15 MG TAB 7.5 MG NG (22:51)
--- NOTE | 2018-11-04 01:04 | NUR.NOTE ---
Nursing Note: From 2300 hrs to 0700 hrs shift: Pt received on semi israel's position with TF regulated at 50 cc/hr.Pt instructed to keep head elevated while on bed. TF bag received with total volume of 800 cc. ,monitored every 4 hrs. PICC lines on AAYUSH, flushed and no blood return obtained. Asleep but easy arousable.Call lights at reach.
[2018-11-04] MEDS: VANCOMYCIN 750 MG in Normal Saline 250 ML 250 MG IVPB (03:26)
[2018-11-04] MEDS: Levothyroxine 50 MCG TAB UD (05:35)
[2018-11-04] MEDS: Normal Saline Flush 10 ML SYR IVP ×7 (05:35→23:17)
[2018-11-04] MEDS: Metoclopramide 10 MG/2 ML VIAL IVP ×4 (05:36→23:17)
[2018-11-04] MEDS: PIPERACILLIN/TAZO 3.375 GM in Normal Saline 50 ML IVPB ×4 (05:36→23:17)
[2018-11-04 07:10] LABS: Absolute Eosinophil Count 0.63 k/cumm (0.0-0.7); Absolute Lymphocyte Count 1.73 k/cumm (1.2-3.4); Basophils % 0.7; Eosinophils % 4.6; HCT 28.8 % (36.0-46.0); HGB 9.5 g/dL (12.0-15.5); Immature Grans % 1.5; Lymphocytes % 12.6; Mean Corpuscular Hemoglobin 30.6 pg (27.0-33.0); Mean Corpuscular Volume 92.9 fL (80-95); Mean Platelet Volume 8.5 fL (8.0-11.0); Monocytes % 9.6; Platelet Count 559 x1000/uL (130-400); RBC Distribution Width 16.2 % (11.7-14.6)
[2018-11-04 07:12] LABS: Absolute Monocyte Count 1.32 k/cumm (0.11-0.7); Absolute Neutrophil Count 9.73 k/cumm (1.2-6.7)
[2018-11-04 07:24] LABS: Anion Gap 8.7 mmol/L (3-11); BUN 12 mg/dL (7-18); CO2 25.3 mmol/L (21.0-32.0); CREATININE 0.76 mg/dL (0.55-1.02); Calcium 9.6 mg/dL (8.5-10.1); Chloride 98 mmol/L (98-107); Glucose 119 mg/dL (70-100); Magnesium 1.6 mg/dL (1.8-2.4); Potassium 4.4 mmol/L (3.5-5.1); Sodium 132 mmol/L (136-145)
[2018-11-04 08:20] VITALS: BP 157/92; PULSE 104; RESP 20; TEMP 37.6; O2SAT 98
--- NOTE | 2018-11-04 09:46 | PDOC.CMPRO ---
Care Management Progress Note S/O: Per MD, Cece may transfer to [facility] in order to begin radiation treatments. Cece was sitting up in bed when CM met with her. She reviewed her hospital course and reported feeling [facility] would be an ideal disposition due to wanting to begin radiation treatments. CM also discussed the need for staying upright during tube feeds which Cece verbalized awareness of. CM spoke with Vania of [facility] and agreed to keep her updated regarding discharge planning. Cece requested this senior underwriter return Dilan's scarf (of Dilan's Head to Toe) as she left it in Cece's room when she cut her hair over the holiday. CM will continue to follow. A: 53 year old female admitted with hypokalemia and hypomagnesemia with esophageal cancer. P: Cece remains acute today with no change in status. Provider will continue to advocate for transfer of Cece to tertiary center. Transportation pending discharge disposition. CM will continue to offer support to patient, family, and care team regarding discharge planning and disposition mas well as notify [place] of developments.
--- NOTE | 2018-11-04 10:09 | CMPROGNOTE_ITS ---
Care Management Progress Note S/O: Per MD, Cece may transfer to [facility] in order to begin radiation treatments. Cece was sitting up in bed when CM met with her. She reviewed her hospital course and reported feeling [facility] would be an ideal disposition due to wanting to begin radiation treatments. CM also discussed the need for staying upright during tube feeds which Cece verbalized awareness of. CM spoke with Vania of [facility] and agreed to keep her updated regarding discharge planning. Cece requested this investigative writer return Dilan's scarf (of Dilan's Head to Toe) as she left it in Cece's room when she cut her hair over the holiday. CM will continue to follow. A: 53 year old female admitted with hypokalemia and hypomagnesemia with esophageal cancer. P: Cece remains acute today with no change in status. Provider will continue to advocate for transfer of Cece to tertiary center. Transportation pending discharge disposition. CM will continue to offer support to patient, family, and care team regarding discharge planning and disposition mas well as notify [place] of developments.
[2018-11-04] MEDS: Potassium Chloride Liquid 20 MEQ PKT 40 MEQ NG (10:22)
[2018-11-04] MEDS: Rosuvastatin 5 MG TAB UD (10:23)
[2018-11-04] MEDS: Metoprolol 12.5 MG TAB NG ×2 (10:23→19:55)
[2018-11-04] MEDS: Folic Acid 1 MG TAB UD (10:24)
[2018-11-04] MEDS: Thiamine 100 MG TAB UD (10:24)
[2018-11-04] MEDS: Magnesium Oxide 400 MG TAB 800 MG NG ×3 (10:24→19:55)
[2018-11-04] MEDS: Venlafaxine 75 MG TAB NG ×2 (10:26→19:54)
[2018-11-04] MEDS: Acetaminophen Solution 650 MG/20.3 ML CUP 1000 MG UD ×2 (10:29→19:55)
[2018-11-04] MEDS: Pantoprazole 40 MG VIAL IVP (10:31)
[2018-11-04] MEDS: Normal Saline 10 ML VIAL IJ (10:31)
[2018-11-04 11:16] VITALS: O2SAT 99
[2018-11-04] MEDS: MAGNESIUM SULFATE 4 GM/100 ML BAG IVPB (14:29)
--- NOTE | 2018-11-04 15:47 | DI.RAD_ITS ---
SYMPTOM/DIAGNOSIS: PERSISTENT FEVERS, F/U PNA PORTABLE CHEST: 11/04/18 Single AP portable study. When compared with the previous examination of 10/30/18 there has been significant interval clearing of the regions of abnormality in the lung bases with apparent resorption of a right pleural effusion. There has been otherwise no interval change.
[2018-11-04 15:53] VITALS: BP 147/81; PULSE 92; RESP 19; TEMP 36.7; O2SAT 95
--- NOTE | 2018-11-04 15:53 | DI.VRAD_ITS ---
EXAM: Portable XR Chest, 1 View EXAM DATE/TIME: 11/04/2018 3:45 PM CLINICAL HISTORY: 53 years old, female; Signs and symptoms; Fever; Patient HX: Persistent fever, f/u pna TECHNIQUE: Portable XR of the chest, 1 view. COMPARISON: SC XR PORTABLE CHEST AP 10/30/2018 10:31 AM FINDINGS: Lungs: There has been clearing of the density at the left lung base. Pleural space: There has been clearing of the right pleural effusion. Heart/Mediastinum: The cardiac, mediastinal and hilar silhouettes are unremarkable. Bones/joints: There is a healing left ninth posterior rib fracture. This was present on the earlier study and is unchanged. IMPRESSION: Interval clearing of the right pleural effusion. Interval clearing of the density at the left lung base. Dictated and Authenticated by: Karl Carey MD. Ordering:CHERIE Estrada MD
[2018-11-04 16:33] LABS: Vancomycin, Trough 20.2 ug/mL (10.0-20.0)
--- NOTE | 2018-11-04 17:44 | W.PM.PROGNOT ---
Date of Service Date of service: 11/04/18 Time of Service: 15:00 Assessment and Plan (1) Aspiration pneumonia: Current visit: No Status: Acute With recurrence of fever and worsening leucocytosis. CXR is actually better. Reculturing blood/urine; I added levofloxacin to zosyn; vancomycin d/c'ed. (2) Uncontrolled pain: Current visit: Yes Status: Acute No change in pain regimen (3) Hypertensive urgency: Current visit: Yes Status: Resolved Continue low dose BB. (4) Squamous cell carcinoma of esophagus: Current visit: No Status: Acute with dysphagia, s/p PEG on 10/28/18. Continue reglan to help with residuals. Long conversation today with [facility] - Dr Walker (hospitalist) as well as Dr Dia. Dr Walker felt that the patient needs to have her aspiration pneumonia to improve and to try to do radiation as outpatient once she is dischargable. (5) Bacteremia: Current visit: No Status: Resolved Completed nafcillin. Reculturing a PICC line. (6) Malnutrition: Current visit: No Status: Chronic Continue current TF formula + reglan. Qualifiers: Malnutrition type: protein-calorie malnutrition Protein-calorie malnutrition severity: severe Qualified Code(s): E43 - Unspecified severe protein-calorie malnutrition (7) Hypokalemia: Current visit: No Status: Resolved Monitor (8) Hypomagnesemia: Current visit: No Status: Acute Replete. Improving. (9) Tobacco abuse: Current visit: No Status: Chronic Continue nicotine replacement (10) Depression: Current visit: No Status: Chronic Continue venlafaxine, mirtazapine. (11) Anemia: Current visit: No Status: Chronic S/p transfusion of 1 unit pRBC's on this admission. H/H stable. No evidence of active GI bleed. Did have hematemesis on this admission. Can consider changing to H2 belem if hypomagnesemia remains an issue. (12) Discharge planning issues: Current visit: Yes Status: Acute Full code. Will attempt to clear infection to be able to discharge patient to SNF for outpatient XRT. (13) DVT prophylaxis: Current visit: No Status: Acute SCD's Subjective Interval history since last seen: Denies dizziness, chest pain. Cough is the same. Denies nausea, vomiting. Exam Narrative Exam Narrative: General: A&Ox3, sitting comfortably in bed, looks depressed HEENT: EOMI, MMM Heart: RRR, no m/r/g Lungs: Diminished breath sounds at B bases; Improved aeration. GI: abdomen tender in LUQ (PEG site) Extremities: no e/c/c BLE's Objective Objective Clinical Data: Abnormal lab results 11/04/18 11/04/18 11/04/18 Range/Units 06:50 06:50 15:52 WBC 13.70 H (4.4-10.8) k/cumm RBC 3.10 L (4.00-5.20) m/cumm Hgb 9.5 L (12.0-15.5) g/dL Hct 28.8 L (36.0-46.0) % RDW 16.2 H (11.7-14.6) % Plt Count 559 H (130-400) x1000/uL Absolute Neutrophils 9.73 H (1.2-6.7) k/cumm Absolute Monocytes 1.32 H (0.11-0.7) k/cumm Sodium 132 L (136-145) mmol/L Glucose 119 H (70-100) mg/dL Magnesium 1.6 L (1.8-2.4) mg/dL Vancomycin Trough 20.2 H* (10.0-20.0) ug/mL Vital Signs Temperature 36.7 C 11/04/18 15:53 Temperature Source Tympanic 11/04/18 15:53 Pulse 92 H 11/04/18 15:53 Pulse Rhythm Regular 11/04/18 10:15 Pulse 92 H 10/25/18 23:40 Respiratory Rate 19 11/04/18 15:53 Respiratory Effort Non-Labored 11/04/18 10:15 Respiratory Depth Normal 11/04/18 10:15 Respiratory Pattern Normal 11/04/18 10:15 Blood Pressure 147/81 H 11/04/18 15:53 Blood Pressure Position Supine 10/25/18 20:27 Pulse Oximetry 95 11/04/18 15:53 Respiratory End-tidal CO2 31 10/28/18 10:58 Oxygen Delivery Method Room Air 11/04/18 15:53 Oxygen Flow Rate 0 11/04/18 15:53 Fraction of Inspired Oxygen (FIO2) 100 10/27/18 17:00 Pain Level 5 11/04/18 10:29 Comment 11/04/18 08:20 Intake & Output 11/03/18 11/04/18 11/04/18 23:59 11:59 23:59 Intake Total 1490 / 1840 50 / 250 200 / 250 Output Total 1330 / 1890 920 / 1040 120 / 1040 Balance 160 / -50 -870 / -790 80 / -790 Weight 48.9 kg Intake: IV 500 / 850 50 / 50 Oral 990 / 990 Intake, Tube Feeding Amount 200 / 200 Output: Urine 1150 / 1650 700 / 700 Output, Residual 180 / 240 220 / 340 120 / 340 Other: Urine Color Yellow Yellow Urine Appearance Clear Clear Urine Odor None Stool Size Small Stool Characteristics Soft Brown Voiding Methods Toilet Toilet Laboratory Results WBC 13.70 k/cumm (4.4-10.8) H 11/04/18 06:50 RBC 3.10 m/cumm (4.00-5.20) L 11/04/18 06:50 Hgb 9.5 g/dL (12.0-15.5) L 11/04/18 06:50 Hct 28.8 % (36.0-46.0) L 11/04/18 06:50 MCV 92.9 fL (80-95) 11/04/18 06:50 MCH 30.6 pg (27.0-33.0) 11/04/18 06:50 MCHC 33.0 g/dL (32.0-36.0) 11/04/18 06:50 RDW 16.2 % (11.7-14.6) H 11/04/18 06:50 Plt Count 559 x1000/uL (130-400) H 11/04/18 06:50 MPV 8.5 fL (8.0-11.0) 11/04/18 06:50 Immature Gran % 1.5 11/04/18 06:50 Neutrophils % 71.0 11/04/18 06:50 Lymphocytes % 12.6 11/04/18 06:50 Monocytes % 9.6 11/04/18 06:50 Eosinophils % 4.6 11/04/18 06:50 Basophils % 0.7 11/04/18 06:50 Absolute Neutrophils 9.73 k/cumm (1.2-6.7) H 11/04/18 06:50 Absolute Lymphocytes 1.73 k/cumm (1.2-3.4) 11/04/18 06:50 Absolute Monocytes 1.32 k/cumm (0.11-0.7) H 11/04/18 06:50 Absolute Eosinophils 0.63 k/cumm (0.0-0.7) 11/04/18 06:50 Absolute Basophils 0.10 k/cumm (0.0-0.2) 11/04/18 06:50 Sodium 132 mmol/L (136-145) L 11/04/18 06:50 Potassium 4.4 mmol/L (3.5-5.1) 11/04/18 06:50 Chloride 98 mmol/L (98-107) 11/04/18 06:50 Carbon Dioxide 25.3 mmol/L (21.0-32.0) 11/04/18 06:50 Anion Gap 8.7 mmol/L (3-11) 11/04/18 06:50 BUN 12 mg/dL (7-18) 11/04/18 06:50 Creatinine 0.76 mg/dL (0.55-1.02) 11/04/18 06:50 Estimated GFR/1.73 m2 >= 60.00 (mL/min/1.73m2) 11/04/18 06:50 Glucose 119 mg/dL (70-100) H 11/04/18 06:50 Calcium 9.6 mg/dL (8.5-10.1) 11/04/18 06:50 Magnesium 1.6 mg/dL (1.8-2.4) L 11/04/18 06:50 Total Bilirubin 0.6 mg/dL (0.2-1.0) 10/26/18 07:10 AST 15 U/L (15-37) 10/26/18 07:10 ALT 6 U/L (12-78) L 10/26/18 07:10 Alkaline Phosphatase 86 U/L (46-116) 10/26/18 07:10 Troponin I < 0.02 ng/mL (0.00-0.06) 10/25/18 20:55 Total Protein 6.1 g/dL (6.4-8.2) L 10/26/18 07:10 Albumin 1.4 g/dL (3.4-5.0) L 10/26/18 07:10 Urine Color Yellow (Yellow) 10/31/18 12:40 Urine Clarity Clear 10/31/18 12:40 Urine pH 8.5 (5-8) H 10/31/18 12:40 Ur Specific [place] 1.020 (1.005-1.025) 10/31/18 12:40 Urine Protein Negative mg/dL (Negative) 10/31/18 12:40 Urine Ketones Negative mg/dL (Negative) 10/31/18 12:40 Urine Blood Negative (Negative) 10/31/18 12:40 Urine Nitrite Negative (Negative) 10/31/18 12:40 Urine Bilirubin Negative (Negative) 10/31/18 12:40 Urine Urobilinogen 0.2 EU/dL (Up TO 0.2) 10/31/18 12:40 Ur Leukocyte Esterase Negative (Negative) 10/31/18 12:40 Urine Glucose Negative mg/dL (Negative) 10/31/18 12:40 Vancomycin Trough 20.2 ug/mL (10.0-20.0) H* 11/04/18 15:52 Patient ABO/Rh O Positive 10/29/18 08:50 Antibody Screen Negative 10/29/18 08:50 Crossmatch See Detail 10/29/18 08:50
[2018-11-04 19:02] LABS: Bilirubin Negative (Negative); Blood Negative (Negative); Clarity Clear; Glucose Negative (Negative); Ketones Negative (Negative); Leukocyte Esterase Negative (Negative); Nitrite Negative (Negative); Specific Gravity 1.015 (1.005-1.025); Urobilinogen 0.2 EU/dL (Up TO 0.2); pH 7.5 (5-8)
[2018-11-04] MEDS: LEVOFLOXACIN 500 MG/100 ML BAG 100 MG IVPB (19:56)
[2018-11-04 20:24] VITALS: BP 148/73; PULSE 99; RESP 18; TEMP 37; O2SAT 98
[2018-11-04] MEDS: Mirtazapine 15 MG TAB 7.5 MG NG (21:41)
[2018-11-05] VITALS (7 sets, daily range): BP systolic 135–168; BP diastolic 65–83; PULSE 88–101; RESP 16–19; TEMP 36.2–37.3; O2SAT 97–99
[2018-11-05] MEDS: Normal Saline Flush 10 ML SYR IVP ×3 (06:44→17:12)
[2018-11-05] MEDS: Levothyroxine 50 MCG TAB UD (06:45)
[2018-11-05] MEDS: Metoclopramide 10 MG/2 ML VIAL IVP ×3 (06:45→17:13)
[2018-11-05] MEDS: PIPERACILLIN/TAZO 3.375 GM in Normal Saline 50 ML IVPB ×4 (06:47→23:34)
[2018-11-05 07:35] LABS: Abs Immature Grans 0.21 k/cumm (0.0-0.09); Absolute Basophil Count 0.07 k/cumm (0.0-0.2); Absolute Eosinophil Count 0.51 k/cumm (0.0-0.7); Absolute Lymphocyte Count 1.76 k/cumm (1.2-3.4); Absolute Monocyte Count 1.37 k/cumm (0.11-0.7); Absolute Neutrophil Count 9.81 k/cumm (1.2-6.7); Basophils % 0.5; Eosinophils % 3.7; HCT 27.7 % (36.0-46.0); Immature Grans % 1.5; Lymphocytes % 12.8; Mean Corp. HGB Concentration 32.5 g/dL (32.0-36.0); Mean Corpuscular Hemoglobin 30.5 pg (27.0-33.0); Mean Corpuscular Volume 93.9 fL (80-95); Mean Platelet Volume 8.7 fL (8.0-11.0); Neutrophils % 71.5; Platelet Count 644 x1000/uL (130-400); RBC 2.95 m/cumm (4.00-5.20); RBC Distribution Width 15.8 % (11.7-14.6); White Blood Cell Count 13.72 k/cumm (4.4-10.8)
[2018-11-05 07:49] LABS: Anion Gap 10.8 mmol/L (3-11); BUN 13 mg/dL (7-18); CO2 25.2 mmol/L (21.0-32.0); Calcium 10.3 mg/dL (8.5-10.1); Chloride 98 mmol/L (98-107); Glucose 115 mg/dL (70-100); Magnesium 2.1 mg/dL (1.8-2.4); Potassium 4.2 mmol/L (3.5-5.1); Sodium 134 mmol/L (136-145)
[2018-11-05] MEDS: Pantoprazole 40 MG VIAL IVP (08:37)
[2018-11-05] MEDS: Magnesium Oxide 400 MG TAB 800 MG NG ×3 (08:38→20:00)
[2018-11-05] MEDS: Folic Acid 1 MG TAB UD (08:38)
[2018-11-05] MEDS: Rosuvastatin 5 MG TAB UD (08:39)
[2018-11-05] MEDS: Venlafaxine 75 MG TAB NG ×2 (08:39→20:01)
[2018-11-05] MEDS: Thiamine 100 MG TAB UD (08:39)
[2018-11-05] MEDS: Potassium Chloride Liquid 20 MEQ PKT 40 MEQ NG (08:39)
[2018-11-05] MEDS: Metoprolol 12.5 MG TAB NG ×2 (08:39→20:00)
[2018-11-05] MEDS: MAGNESIUM SULFATE 1 GM/100 ML BAG IVPB (11:01)
--- NOTE | 2018-11-05 12:38 | PDOC.CMPRO ---
- If Service Date Differs Date of service: 11/05/18 Time of Service: 12:38 Care Management Progress Note S/O: Cece is lying in bed when CM visits this morning. She is engaged in conversation, makes good eye contact, and is talkative. Cece reports that she is frustrated with being at the hospital and is 'sick of it'. Cece has reportedly been aspirating with her TPN feedings and is needing to sit up during these, and following, rather than lying down as she has insisted on doing. Per MD report, Dr. Laughlin spoke at length with MDs at [facility] regarding Cece and transferring her there for care. Dr. Walekr reportedly wanted Cece's aspiration pneumonia to improve and to try to do radiation as outpatient once she is dischargeable. [facility] has declined offering a bed to Cece. A: 53 year old female admitted with hypokalemia and hypomagnesemia with esophageal cancer. P: Cece remains acute today with no change in status. Provider will continue to advocate for transfer of Cece to tertiary center. Transportation pending discharge disposition. CM will continue to offer support to patient, family, and care team regarding discharge planning and disposition as well as notify [facility] of developments.
--- NOTE | 2018-11-05 12:50 | CMPROGNOTE_ITS ---
- If Service Date Differs Date of service: 11/05/18 Time of Service: 12:38 Care Management Progress Note S/O: Cece is lying in bed when CM visits this morning. She is engaged in conversation, makes good eye contact, and is talkative. Cece reports that she is frustrated with being at the hospital and is 'sick of it'. Cece has reportedly been aspirating with her TPN feedings and is needing to sit up during these, and following, rather than lying down as she has insisted on doing. Per MD report, Dr. Laughlin spoke at length with MDs at [facility] regarding Cece and transferring her there for care. Dr. Walker reportedly wanted Cece's aspiration pneumonia to improve and to try to do radiation as outpatient once she is dischargeable. [facility] has declined offering a bed to Cece. A: 53 year old female admitted with hypokalemia and hypomagnesemia with esophageal cancer. P: Cece remains acute today with no change in status. Provider will continue to advocate for transfer of Cece to tertiary center. Transportation pending discharge disposition. CM will continue to offer support to patient, family, and care team regarding discharge planning and disposition as well as notify [facility] of developments.
--- NOTE | 2018-11-05 14:11 | DI.US_ITS ---
SYMPTOMS/DIAGNOSIS: SWELLING, ? DVT LEFT UPPER EXTREMITY ULTRASOUND: There is no evidence of a deep venous thrombosis of superficial venous thrombus in the left upper extremity. The jugular vein also appears free of thrombus. No soft tissue hematoma or fluid collection is seen. There is limited visibility of the PICC line at the insertion due to bandages. IMPRESSION: No evidence of deep venous thrombosis or superficial venous thrombosis.
[2018-11-05] MEDS: LEVOFLOXACIN 500 MG/100 ML BAG 100 MG IVPB (17:13)
--- NOTE | 2018-11-05 18:02 | DI.VRAD_ITS ---
EXAM: US Left Duplex Upper Extremity Veins, Limited EXAM DATE/TIME: 11/05/2018 2:12 PM CLINICAL HISTORY: 53 years old, female; Signs and symptoms; Swelling; Arm, upper; Left; Patient HX: Rule out dvt; Additional info: Limited visibility of picc insertion site due to bandages. TECHNIQUE: Real-time Duplex ultrasound of the Left Upper Extremity with 2-D qiu scale, color Doppler flow and spectral waveform analysis. Limited exam focused on the left upper extremity veins. COMPARISON: No relevant prior studies available. FINDINGS: Limitations: Limited evaluation at the PICC line insertion site due to bandages. Left deep veins: Unremarkable. Axillary and brachial veins are patent throughout without thrombus. Normal compressibility, augmentation response and Doppler waveforms. Visualized internal jugular, brachiocephalic and subclavian veins are patent. Left superficial veins: Unremarkable. Visualized cephalic and basilic veins are patent without thrombus. Soft tissues: Unremarkable. IMPRESSION: No acute findings. No evidence of deep vein thrombosis or superficial thrombophlebitis. Dictated and Authenticated by: Caryl Bernard MD. Ordering:CHERIE Estrada MD
--- NOTE | 2018-11-05 19:59 | W.PM.PROGNOT ---
Date of Service Date of service: 11/05/18 Time of Service: 18:00 Assessment and Plan (1) Aspiration pneumonia: Current visit: No Status: Acute Afebrile x 24 hours. Continue levofloxacin (day 2) + zosyn (day 6) Blood, urine C&S from yesterday with NGTD. Other sources of fever - ?DVT - LUE (with PICC in it) s/p doppler today - no evidence of DVT (2) Uncontrolled pain: Current visit: Yes Status: Resolved No change in pain regimen (3) Hypertensive urgency: Current visit: Yes Status: Resolved Continue low dose BB. (4) Squamous cell carcinoma of esophagus: Current visit: No Status: Acute with dysphagia, s/p PEG on 10/28/18. Start to decrease reglan. [facility] [place] contacted for possible inpatient radiation - recommendation was to attempt to resolve the pneumonia and discharge patient with outpatient radiation. (5) Bacteremia: Current visit: No Status: Resolved Completed nafcillin. Repeat blood cx negative. (6) Malnutrition: Current visit: No Status: Chronic Continue current TF formula + reglan. Qualifiers: Malnutrition type: protein-calorie malnutrition Protein-calorie malnutrition severity: severe Qualified Code(s): E43 - Unspecified severe protein-calorie malnutrition (7) Hypokalemia: Current visit: No Status: Resolved Monitor (8) Hypomagnesemia: Current visit: No Status: Resolved Monitor (9) Tobacco abuse: Current visit: No Status: Chronic Continue nicotine replacement (10) Depression: Current visit: No Status: Chronic Continue venlafaxine, mirtazapine - increase mirtazapine dose (11) Anemia: Current visit: No Status: Chronic S/p transfusion of 1 unit pRBC's on this admission. H/H stable. No evidence of active GI bleed. Did have hematemesis on this admission. Can consider changing to H2 belem if hypomagnesemia remains an issue. (12) Discharge planning issues: Current visit: Yes Status: Acute Full code. Will attempt to clear infection to be able to discharge patient to SNF for outpatient XRT. (13) DVT prophylaxis: Current visit: No Status: Acute SCD's Subjective Interval history since last seen: Cece says I'm preparing my . She is talking about doing her advanced directives. She states she continues to have a productive cough, though sputum is now clear. She denies dizziness, chest pain, shortness of breath, nausea, vomiting. Her abdominal pain near her PEG tube is a lot better. Exam Narrative Exam Narrative: General: A&Ox3, in bed, head of bed elevated, tearful when talking about future HEENT: EOMI, MMM Heart: RRR, no m/r/g Lungs: Diminished breath sounds at B bases GI: abdomen tender in LUQ (PEG site) Extremities: no e/c/c BLE's Objective Objective Clinical Data: Abnormal lab results 11/05/18 11/05/18 Range/Units 07:07 07:07 WBC 13.72 H (4.4-10.8) k/cumm RBC 2.95 L (4.00-5.20) m/cumm Hgb 9.0 L (12.0-15.5) g/dL Hct 27.7 L (36.0-46.0) % RDW 15.8 H (11.7-14.6) % Plt Count 644 H (130-400) x1000/uL Absolute Neutrophils 9.81 H (1.2-6.7) k/cumm Absolute Monocytes 1.37 H (0.11-0.7) k/cumm Sodium 134 L (136-145) mmol/L Glucose 115 H (70-100) mg/dL Calcium 10.3 H (8.5-10.1) mg/dL Vital Signs Temperature 37.1 C 11/05/18 19:26 Temperature Source Tympanic 11/05/18 19:26 Pulse 97 H 11/05/18 19:26 Pulse Rhythm Regular 11/05/18 13:00 Pulse 92 H 10/25/18 23:40 Respiratory Rate 19 11/05/18 19:26 Respiratory Effort 11/05/18 13:00 Respiratory Depth Normal 11/05/18 13:00 Respiratory Pattern Normal 11/05/18 13:00 Blood Pressure 138/65 11/05/18 19:26 Blood Pressure Position Supine 10/25/18 20:27 Pulse Oximetry 97 11/05/18 19:26 Respiratory End-tidal CO2 31 10/28/18 10:58 Oxygen Delivery Method Room Air 11/05/18 19:26 Oxygen Flow Rate 0 11/05/18 19:26 Fraction of Inspired Oxygen (FIO2) 100 10/27/18 17:00 Pain Level 0 11/05/18 11:40 Comment 11/05/18 03:40 Intake & Output 11/04/18 11/05/18 11/05/18 23:59 11:59 23:59 Intake Total 1000 / 1050 870 / 1520 650 / 1520 Output Total 220 / 1140 630 / 1150 520 / 1150 Balance 780 / -90 240 / 370 130 / 370 Weight 47.6 kg Intake: IV 600 / 650 110 / 360 250 / 360 Oral 360 / 360 Intake, Tube Feeding Amount 400 / 400 400 / 800 400 / 800 Output: Urine 500 / 750 250 / 750 Output, Residual 220 / 440 130 / 400 270 / 400 Other: Urine Color Yellow Yellow Urine Appearance Clear Clear Clear Stool Size Moderate Stool Characteristics Soft Voiding Methods Toilet Toilet Laboratory Results WBC 13.72 k/cumm (4.4-10.8) H 11/05/18 07:07 RBC 2.95 m/cumm (4.00-5.20) L 11/05/18 07:07 Hgb 9.0 g/dL (12.0-15.5) L 11/05/18 07:07 Hct 27.7 % (36.0-46.0) L 11/05/18 07:07 MCV 93.9 fL (80-95) 11/05/18 07:07 MCH 30.5 pg (27.0-33.0) 11/05/18 07:07 MCHC 32.5 g/dL (32.0-36.0) 11/05/18 07:07 RDW 15.8 % (11.7-14.6) H 11/05/18 07:07 Plt Count 644 x1000/uL (130-400) H 11/05/18 07:07 MPV 8.7 fL (8.0-11.0) 11/05/18 07:07 Immature Gran % 1.5 11/05/18 07:07 Neutrophils % 71.5 11/05/18 07:07 Lymphocytes % 12.8 11/05/18 07:07 Monocytes % 10.0 11/05/18 07:07 Eosinophils % 3.7 11/05/18 07:07 Basophils % 0.5 11/05/18 07:07 Absolute Neutrophils 9.81 k/cumm (1.2-6.7) H 11/05/18 07:07 Absolute Lymphocytes 1.76 k/cumm (1.2-3.4) 11/05/18 07:07 Absolute Monocytes 1.37 k/cumm (0.11-0.7) H 11/05/18 07:07 Absolute Eosinophils 0.51 k/cumm (0.0-0.7) 11/05/18 07:07 Absolute Basophils 0.07 k/cumm (0.0-0.2) 11/05/18 07:07 Sodium 134 mmol/L (136-145) L 11/05/18 07:07 Potassium 4.2 mmol/L (3.5-5.1) 11/05/18 07:07 Chloride 98 mmol/L (98-107) 11/05/18 07:07 Carbon Dioxide 25.2 mmol/L (21.0-32.0) 11/05/18 07:07 Anion Gap 10.8 mmol/L (3-11) 11/05/18 07:07 BUN 13 mg/dL (7-18) 11/05/18 07:07 Creatinine 0.90 mg/dL (0.55-1.02) 11/05/18 07:07 Estimated GFR/1.73 m2 >= 60.00 (mL/min/1.73m2) 11/05/18 07:07 Glucose 115 mg/dL (70-100) H 11/05/18 07:07 Calcium 10.3 mg/dL (8.5-10.1) H 11/05/18 07:07 Magnesium 2.1 mg/dL (1.8-2.4) 11/05/18 07:07 Total Bilirubin 0.6 mg/dL (0.2-1.0) 10/26/18 07:10 AST 15 U/L (15-37) 10/26/18 07:10 ALT 6 U/L (12-78) L 10/26/18 07:10 Alkaline Phosphatase 86 U/L (46-116) 10/26/18 07:10 Troponin I < 0.02 ng/mL (0.00-0.06) 10/25/18 20:55 Total Protein 6.1 g/dL (6.4-8.2) L 10/26/18 07:10 Albumin 1.4 g/dL (3.4-5.0) L 10/26/18 07:10 Urine Color Yellow (Yellow) 11/04/18 18:59 Urine Clarity Clear 12 18:59 Urine pH 7.5 (5-8) 12 18:59 Ur Specific [place] 1.015 (1.005-1.025) 11/04/18 18:59 Urine Protein Negative mg/dL (Negative) 11/04/18 18:59 Urine Ketones Negative mg/dL (Negative) 11/04/18 18:59 Urine Blood Negative (Negative) 11/04/18 18:59 Urine Nitrite Negative (Negative) 11/04/18 18:59 Urine Bilirubin Negative (Negative) 11/04/18 18:59 Urine Urobilinogen 0.2 EU/dL (Up TO 0.2) 11/04/18 18:59 Ur Leukocyte Esterase Negative (Negative) 11/04/18 18:59 Urine Glucose Negative mg/dL (Negative) 11/04/18 18:59 Vancomycin Trough 20.2 ug/mL (10.0-20.0) H* 11/04/18 15:52 Patient ABO/Rh O Positive 10/29/18 08:50 Antibody Screen Negative 10/29/18 08:50 Crossmatch See Detail 10/29/18 08:50
[2018-11-05] MEDS: Mirtazapine 15 MG TAB 7.5 MG NG (22:16)
[2018-11-05] MEDS: Metoclopramide 10 MG/2 ML VIAL 5 MG IVP (23:34)
[2018-11-06] MEDS: Levothyroxine 50 MCG TAB UD (06:20)
[2018-11-06] MEDS: PIPERACILLIN/TAZO 3.375 GM in Normal Saline 50 ML IVPB ×3 (06:20→20:53)
[2018-11-06] MEDS: Normal Saline Flush 10 ML SYR IVP ×3 (06:20→17:43)
[2018-11-06] MEDS: Metoclopramide 10 MG/2 ML VIAL 5 MG IVP ×3 (06:20→17:41)
[2018-11-06 07:11] LABS: Abs Immature Grans 0.11 k/cumm (0.0-0.09); Absolute Basophil Count 0.05 k/cumm (0.0-0.2); Absolute Eosinophil Count 0.23 k/cumm (0.0-0.7); Absolute Lymphocyte Count 1.59 k/cumm (1.2-3.4); Absolute Neutrophil Count 9.15 k/cumm (1.2-6.7); Basophils % 0.4; Eosinophils % 1.9; HCT 26.2 % (36.0-46.0); HGB 8.6 g/dL (12.0-15.5); Immature Grans % 0.9; Mean Corp. HGB Concentration 32.8 g/dL (32.0-36.0); Mean Corpuscular Hemoglobin 30.7 pg (27.0-33.0); Mean Corpuscular Volume 93.6 fL (80-95); Mean Platelet Volume 8.8 fL (8.0-11.0); Monocytes % 9.1; Neutrophils % 74.7; Platelet Count 640 x1000/uL (130-400); RBC Distribution Width 15.6 % (11.7-14.6); White Blood Cell Count 12.25 k/cumm (4.4-10.8)
[2018-11-06 07:13] LABS: Absolute Monocyte Count 1.11 k/cumm (0.11-0.7)
[2018-11-06 07:21] LABS: Anion Gap 9.3 mmol/L (3-11); BUN 12 mg/dL (7-18); CO2 25.7 mmol/L (21.0-32.0); CREATININE 0.89 mg/dL (0.55-1.02); Chloride 98 mmol/L (98-107); Glucose 157 mg/dL (70-100); Magnesium 1.3 mg/dL (1.8-2.4); Potassium 3.7 mmol/L (3.5-5.1); Sodium 133 mmol/L (136-145)
[2018-11-06 07:25] VITALS: BP 176/65; PULSE 112; RESP 16; TEMP 37.2; O2SAT 96
[2018-11-06 07:27] LABS: Calcium 10.6 mg/dL (8.5-10.1)
[2018-11-06 08:20] VITALS: O2SAT 97
[2018-11-06] MEDS: Potassium Chloride Liquid 20 MEQ PKT 40 MEQ NG (08:30)
[2018-11-06] MEDS: Pantoprazole 40 MG VIAL IVP (08:31)
[2018-11-06] MEDS: Folic Acid 1 MG TAB UD (08:32)
[2018-11-06] MEDS: Rosuvastatin 5 MG TAB UD (08:32)
[2018-11-06] MEDS: Venlafaxine 75 MG TAB NG ×2 (08:32→20:52)
[2018-11-06] MEDS: Thiamine 100 MG TAB UD (08:32)
[2018-11-06] MEDS: Magnesium Oxide 400 MG TAB 800 MG NG ×3 (08:32→20:52)
[2018-11-06] MEDS: Metoprolol 12.5 MG TAB NG ×2 (08:32→20:52)
[2018-11-06] MEDS: MAGNESIUM SULFATE 4 GM/100 ML BAG IVPB (10:17)
[2018-11-06 11:50] VITALS: BP 111/70; PULSE 91; RESP 16; TEMP 36.5; O2SAT 98
--- NOTE | 2018-11-06 15:10 | PDOC.CMPRO ---
- If Service Date Differs Date of service: 11/06/18 Time of Service: 15:10 Care Management Progress Note S/O: Cece was lying in bed with her head at the foot of the bed when CM visited this afternoon. CM reminded her that with TPN she needed to be sitting up to avoid aspiration. Cece reported that everyone had been pestering her and she knew that she needed to have her head up but wasn't comfortable that way. Cece feels that she is living in [facility], and while she verbalizes understanding that the MDs at [facility] are 'going to bat for her' regarding transfer, [facility] has been unwilling to accept her up until this time due to her aspiration and other ongoing health concerns. Cece reports that she wants to be transferred so that she can begin chemo and radiation while additionally being treated for her other co-morbidities. A: 53 year old female admitted with hypokalemia and hypomagnesemia with esophageal cancer. P: Cece remains acute today with no change in status. Provider will continue to advocate for transfer of Cece to tertiary center. Transportation pending discharge disposition. CM will continue to offer support to patient, family, and care team regarding discharge planning and disposition as well as notify [facility] of developments.
--- NOTE | 2018-11-06 15:35 | CMPROGNOTE_ITS ---
- If Service Date Differs Date of service: 11/06/18 Time of Service: 15:10 Care Management Progress Note S/O: Cece was lying in bed with her head at the foot of the bed when CM visited this afternoon. CM reminded her that with TPN she needed to be sitting up to avoid aspiration. Cece reported that everyone had been pestering her and she knew that she needed to have her head up but wasn't comfortable that way. Cece feels that she is living in [facility], and while she verbalizes understanding that the MDs at [facility] are 'going to bat for her' regarding transfer, [facility] [place] unwilling to [place] her up until this time due to her aspiration and other ongoing health concerns. Cece reports that she wants to be transferred so that she can begin chemo and radiation while additionally being treated for her other co-morbidities. A: 53 year old female admitted with hypokalemia and hypomagnesemia with esophageal cancer. P: Cece remains acute today with no change in status. Provider will continue to advocate for transfer of Cece to tertiary center. Transportation pending discharge disposition. CM will continue to offer support to patient, family, and care team regarding discharge planning and disposition as well as notify [facility] of developments.
[2018-11-06] MEDS: Potassium Chloride Liquid 20 MEQ PKT 30 MEQ NG (15:53)
[2018-11-06 16:08] VITALS: BP 137/73; PULSE 103; RESP 20; TEMP 37.4; O2SAT 98
[2018-11-06] MEDS: LEVOFLOXACIN 500 MG/100 ML BAG 100 MG IVPB (17:42)
--- NOTE | 2018-11-06 19:51 | W.PM.PROGNOT ---
Date of Service Date of service: 11/06/18 Time of Service: 20:12 Assessment and Plan (1) Aspiration pneumonia: Current visit: No Status: Acute (2) Uncontrolled pain: Current visit: Yes Status: Resolved (3) Squamous cell carcinoma of esophagus: Current visit: No Status: Acute (4) Bacteremia: Current visit: No Status: Resolved (5) Malnutrition: Current visit: No Status: Chronic Qualifiers: Malnutrition type: protein-calorie malnutrition Protein-calorie malnutrition severity: severe Qualified Code(s): E43 - Unspecified severe protein-calorie malnutrition (6) Hypomagnesemia: Current visit: No Status: Resolved Continue to monitor and replete aggressively. (7) Tobacco abuse: Current visit: No Status: Chronic Continue and NRT. (8) Depression: Current visit: No Status: Chronic Currently on SNRI, and nightly mirtazapine. (9) Anemia: Current visit: No Status: Chronic Potentially anemia of chronic disease based on normal iron, Low TIBC and elevated Ferritin checked last admission. B12, FA, and TSH all checked and normal. S/p transfusion of 1 unit pRBC's on this admission. (10) Discharge planning issues: Current visit: Yes Status: Acute (11) Breast cancer: Current visit: No Status: Chronic IDC, ER/[place] +, s/p lumpectomy and XRT, noncompliant with tamoxifen therapy (12) PAD (peripheral artery disease): Current visit: No Status: Chronic Patient already follows with vascular at [facility] [place] [place]. No signs of critical limb ischemia. Continue statin therapy. Also on BB . Aspirin currently on hold. Previously initiated DB inhibitor is no longer active. (13) DVT prophylaxis: Current visit: No Status: Acute SCDs given ongoing and worsening anemia. No evidence of DVTs by recent ultrasound on 11/05.
--- NOTE | 2018-11-06 20:12 | PGE_ITS ---
Date of Service Date of service: 11/06/18 Time of Service: 20:12 Assessment and Plan (1) Aspiration pneumonia: Current visit: No Status: Acute (2) Uncontrolled pain: Current visit: Yes Status: Resolved (3) Squamous cell carcinoma of esophagus: Current visit: No Status: Acute (4) Bacteremia: Current visit: No Status: Resolved (5) Malnutrition: Current visit: No Status: Chronic Qualifiers: Malnutrition type: protein-calorie malnutrition Protein-calorie malnutrition severity: severe Qualified Code(s): E43 - Unspecified severe protein-calorie malnutrition (6) Hypomagnesemia: Current visit: No Status: Resolved Continue to monitor and replete aggressively. (7) Tobacco abuse: Current visit: No Status: Chronic Continue and NRT. (8) Depression: Current visit: No Status: Chronic Currently on SNRI, and nightly mirtazapine. (9) Anemia: Current visit: No Status: Chronic Potentially anemia of chronic disease based on normal iron, Low TIBC and elevated Ferritin checked last admission. B12, FA, and TSH all checked and normal. S/p transfusion of 1 unit pRBC's on this admission. (10) Discharge planning issues: Current visit: Yes Status: Acute (11) Breast cancer: Current visit: No Status: Chronic IDC, ER/[place] +, s/p lumpectomy and XRT, noncompliant with tamoxifen therapy (12) PAD (peripheral artery disease): Current visit: No Status: Chronic Patient already follows with vascular at [facility]. No signs of critical limb ischemia. Continue statin therapy. Also on BB . Aspirin currently on hold. Previously initiated DB inhibitor is no longer active. (13) DVT prophylaxis: Current visit: No Status: Acute SCDs given ongoing and worsening anemia. No evidence of DVTs by recent ultrasound on 11/05.
[2018-11-06] MEDS: Acetaminophen Solution 650 MG/20.3 ML CUP 1000 MG UD (20:52)
[2018-11-06] MEDS: Mirtazapine 15 MG TAB 7.5 MG NG (20:52)
[2018-11-07] VITALS (7 sets, daily range): BP systolic 113–168; BP diastolic 66–84; PULSE 91–108; RESP 18; TEMP 36.4–37.1; O2SAT 97–100
[2018-11-07] MEDS: Metoclopramide 10 MG/2 ML VIAL 5 MG IVP ×4 (00:10→17:56)
[2018-11-07] MEDS: Normal Saline Flush 10 ML SYR IVP ×5 (00:11→17:56)
[2018-11-07] MEDS: PIPERACILLIN/TAZO 3.375 GM in Normal Saline 50 ML IVPB ×2 (01:43→08:44)
[2018-11-07] MEDS: Acetaminophen Solution 650 MG/20.3 ML CUP 1000 MG UD ×2 (05:32→17:57)
[2018-11-07] MEDS: Levothyroxine 50 MCG TAB UD (05:32)
[2018-11-07 07:38] LABS: Abs Immature Grans 0.12 k/cumm (0.0-0.09); Absolute Basophil Count 0.07 k/cumm (0.0-0.2); Absolute Eosinophil Count 0.35 k/cumm (0.0-0.7); Absolute Lymphocyte Count 1.53 k/cumm (1.2-3.4); Absolute Monocyte Count 1.17 k/cumm (0.11-0.7); Basophils % 0.6; Eosinophils % 3.1; HCT 24.5 % (36.0-46.0); HGB 7.8 g/dL (12.0-15.5); Immature Grans % 1.1; Lymphocytes % 13.4; Mean Corp. HGB Concentration 31.8 g/dL (32.0-36.0); Mean Corpuscular Hemoglobin 30.1 pg (27.0-33.0); Mean Corpuscular Volume 94.6 fL (80-95); Mean Platelet Volume 8.9 fL (8.0-11.0); Monocytes % 10.3; Neutrophils % 71.5; Platelet Count 632 x1000/uL (130-400); RBC 2.59 m/cumm (4.00-5.20); RBC Distribution Width 15.5 % (11.7-14.6)
[2018-11-07 07:40] LABS: Absolute Neutrophil Count 8.15 k/cumm (1.2-6.7)
[2018-11-07 07:48] LABS: Anion Gap 9.6 mmol/L (3-11); BUN 13 mg/dL (7-18); CO2 25.4 mmol/L (21.0-32.0); CREATININE 1.04 mg/dL (0.55-1.02); Calcium 10.8 mg/dL (8.5-10.1); Chloride 97 mmol/L (98-107); Estimated GFR 55.87 (mL/min/1.73m2); Glucose 139 mg/dL (70-100); Magnesium 1.7 mg/dL (1.8-2.4); Sodium 132 mmol/L (136-145)
[2018-11-07] MEDS: Rosuvastatin 5 MG TAB UD (08:43)
[2018-11-07] MEDS: Venlafaxine 75 MG TAB NG ×2 (08:43→19:51)
[2018-11-07] MEDS: Metoprolol 12.5 MG TAB NG ×2 (08:43→19:51)
[2018-11-07] MEDS: Lactobacillus Acidophilus CAP 1 CAP PO ×3 (08:43→19:51)
[2018-11-07] MEDS: Magnesium Oxide 400 MG TAB 800 MG NG ×3 (08:43→19:51)
[2018-11-07] MEDS: Pantoprazole 40 MG VIAL IVP (08:44)
[2018-11-07] MEDS: Thiamine 100 MG TAB UD (08:44)
[2018-11-07] MEDS: Folic Acid 1 MG TAB UD (08:44)
[2018-11-07] MEDS: Potassium Chloride Liquid 20 MEQ PKT 40 MEQ NG (08:46)
--- NOTE | 2018-11-07 09:03 | PDOC.CMPRO ---
- If Service Date Differs Date of service: 11/07/18 Time of Service: 09:03 Care Management Progress Note S/O: Cece was lying in bed with her head elevated when CM visited this morning. She is engaged in conversation, makes good eye contact, and is talkative. Cece reports that she is just waking up and that she slept much of yesterday. She did receive a text from her son checking in on her and he may be coming for a visit today. Cece is hoping she hears something/anything about her status and possible transfer for treatment. CM assured her that MD will make his rounds and that all on staff are working on her care. She continues to receive continuous TPN feedings and is frustrated by having to drag her IV pole around with her when she gets up. She reports that she did ambulate a little in the halls yesterday and will likely do so today as well. CM encourages her to move and Cece is agreeable. One of the LNAs did Cece's nails for her; Dilan Holland called yesterday and offered to come in however Cece declined. Later in the day, Cece asked if Dilan was still available and Dilan will be coming later in the day. Dilan cut her hair on [address]. Cece has family (brother/sister in law(?) visiting this afternoon and reports she is feeling much better than yesterday (emotionally). A: 53 year old female admitted with hypokalemia and hypomagnesemia with esophageal cancer. P: Cece remains acute today with no change in status. Provider will continue to advocate for transfer of Cece to tertiary center. Transportation pending discharge disposition. CM will continue to offer support to patient, family, and care team regarding discharge planning and disposition as well as notify [facility] of developments.
[2018-11-07] MEDS: Normal Saline 1,000 ML 100 ML IV ×2 (09:30→22:11)
[2018-11-07] MEDS: MAGNESIUM SULFATE 1 GM/100 ML BAG IVPB (10:42)
[2018-11-07] MEDS: LEVOFLOXACIN 500 MG/100 ML BAG 100 MG IVPB (17:55)
--- NOTE | 2018-11-07 20:53 | W.PM.PROGNOT ---
Date of Service Date of service: 11/07/18 Time of Service: 20:54 Assessment and Plan (1) Aspiration pneumonia: Current visit: No Status: Acute (2) Uncontrolled pain: Current visit: Yes Status: Resolved (3) Squamous cell carcinoma of esophagus: Current visit: No Status: Acute (4) Bacteremia: Current visit: No Status: Resolved (5) Malnutrition: Current visit: No Status: Chronic Qualifiers: Malnutrition type: protein-calorie malnutrition Protein-calorie malnutrition severity: severe Qualified Code(s): E43 - Unspecified severe protein-calorie malnutrition (6) Hypomagnesemia: Current visit: No Status: Resolved Continue to monitor and replete aggressively. (7) Tobacco abuse: Current visit: No Status: Chronic Continue and NRT. (8) Depression: Current visit: No Status: Chronic Currently on SNRI, and nightly mirtazapine. (9) Anemia: Current visit: No Status: Chronic Potentially anemia of chronic disease based on normal iron, Low TIBC and elevated Ferritin checked last admission. B12, FA, and TSH all checked and normal. S/p transfusion of 1 unit pRBC's on this admission. However, now testing positive for stool occult blood. Not on anticoagulation. Continue PPI. Monitor Hgb carefully and transfuse as required. (10) Discharge planning issues: Current visit: Yes Status: Acute (11) Breast cancer: Current visit: No Status: Chronic IDC, ER/[place] +, s/p lumpectomy and XRT, noncompliant with tamoxifen therapy (12) PAD (peripheral artery disease): Current visit: No Status: Chronic Patient already follows with vascular at [facility] [place]. No signs of critical limb ischemia. Continue statin therapy. Also on BB . Aspirin currently on hold. Previously initiated DB inhibitor is no longer active. (13) DVT prophylaxis: Current visit: No Status: Acute SCDs given ongoing and worsening anemia. No evidence of DVTs by recent ultrasound on 11/05. Subjective Interval history since last seen: Cece says I'm preparing my . She is talking about doing her advanced directives. She states she continues to have a productive cough, though sputum is now clear. She denies dizziness, chest pain, shortness of breath, nausea, vomiting. Her abdominal pain near her PEG tube is a lot better. Objective Objective Clinical Data: Abnormal lab results 11/07/18 11/07/18 Range/Units 06:20 06:20 WBC 11.40 H (4.4-10.8) k/cumm RBC 2.59 L (4.00-5.20) m/cumm Hgb 7.8 L (12.0-15.5) g/dL Hct 24.5 L (36.0-46.0) % MCHC 31.8 L (32.0-36.0) g/dL RDW 15.5 H (11.7-14.6) % Plt Count 632 H (130-400) x1000/uL Absolute Neutrophils 8.15 H (1.2-6.7) k/cumm Absolute Monocytes 1.17 H (0.11-0.7) k/cumm Sodium 132 L (136-145) mmol/L Chloride 97 L (98-107) mmol/L Creatinine 1.04 H (0.55-1.02) mg/dL Glucose 139 H (70-100) mg/dL Calcium 10.8 H (8.5-10.1) mg/dL Magnesium 1.7 L (1.8-2.4) mg/dL Vital Signs Temperature 37.1 C 11/07/18 19:43 Temperature Source Tympanic 11/07/18 19:43 Pulse 108 H 11/07/18 19:43 Pulse Rhythm Regular 11/07/18 15:44 Pulse 92 H 10/25/18 23:40 Respiratory Rate 18 11/07/18 19:43 Respiratory Effort Non-Labored 11/07/18 15:44 Respiratory Depth Normal 11/07/18 15:44 Respiratory Pattern Normal 11/07/18 08:30 Blood Pressure 129/73 11/07/18 19:43 Blood Pressure Position Supine 10/25/18 20:27 Pulse Oximetry 98 11/07/18 19:43 Respiratory End-tidal CO2 31 10/28/18 10:58 Oxygen Delivery Method Room Air 11/07/18 19:43 Oxygen Flow Rate 0 11/07/18 19:43 Fraction of Inspired Oxygen (FIO2) 100 10/27/18 17:00 Pain Level 4 11/07/18 19:05 Comment 11/07/18 05:15 Intake & Output 11/06/18 11/07/18 11/07/18 23:59 11:59 23:59 Intake Total 1100 / 4754 1617 / 2377 760 / 2377 Output Total 425 / 1815 85 / 605 520 / 605 Balance 675 / 2939 1532 / 1772 240 / 1772 Weight 48.7 kg Intake: IV 300 / 420 330 / 350 20 / 350 Oral 800 / 800 200 / 240 40 / 240 Intake, Tube Feeding Amount 1087 / 1787 700 / 1787 Output: Urine 75 / 1045 300 / 300 Output, Residual 350 / 770 85 / 305 220 / 305 Other: Urine Color Yellow Yellow Urine Appearance Clear Clear Clear Urine Odor Normal None Stool Occult Blood Positive Stool Size Moderate Stool Characteristics Soft Liquid Voiding Methods Toilet Toilet Toilet Laboratory Results WBC 11.40 k/cumm (4.4-10.8) H 11/07/18 06:20 RBC 2.59 m/cumm (4.00-5.20) L 11/07/18 06:20 Hgb 7.8 g/dL (12.0-15.5) L 11/07/18 06:20 Hct 24.5 % (36.0-46.0) L 11/07/18 06:20 MCV 94.6 fL (80-95) 11/07/18 06:20 MCH 30.1 pg (27.0-33.0) 11/07/18 06:20 MCHC 31.8 g/dL (32.0-36.0) L 11/07/18 06:20 RDW 15.5 % (11.7-14.6) H 11/07/18 06:20 Plt Count 632 x1000/uL (130-400) H 11/07/18 06:20 MPV 8.9 fL (8.0-11.0) 11/07/18 06:20 Immature Gran % 1.1 11/07/18 06:20 Neutrophils % 71.5 11/07/18 06:20 Lymphocytes % 13.4 11/07/18 06:20 Monocytes % 10.3 11/07/18 06:20 Eosinophils % 3.1 11/07/18 06:20 Basophils % 0.6 11/07/18 06:20 Absolute Neutrophils 8.15 k/cumm (1.2-6.7) H 11/07/18 06:20 Absolute Lymphocytes 1.53 k/cumm (1.2-3.4) 11/07/18 06:20 Absolute Monocytes 1.17 k/cumm (0.11-0.7) H 11/07/18 06:20 Absolute Eosinophils 0.35 k/cumm (0.0-0.7) 11/07/18 06:20 Absolute Basophils 0.07 k/cumm (0.0-0.2) 11/07/18 06:20 Sodium 132 mmol/L (136-145) L 11/07/18 06:20 Potassium 4.0 mmol/L (3.5-5.1) 11/07/18 06:20 Chloride 97 mmol/L (98-107) L 11/07/18 06:20 Carbon Dioxide 25.4 mmol/L (21.0-32.0) 11/07/18 06:20 Anion Gap 9.6 mmol/L (3-11) 11/07/18 06:20 BUN 13 mg/dL (7-18) 11/07/18 06:20 Creatinine 1.04 mg/dL (0.55-1.02) H 11/07/18 06:20 Estimated GFR/1.73 m2 55.87 (mL/min/1.73m2) 11/07/18 06:20 Glucose 139 mg/dL (70-100) H 11/07/18 06:20 Calcium 10.8 mg/dL (8.5-10.1) H 11/07/18 06:20 Magnesium 1.7 mg/dL (1.8-2.4) L 11/07/18 06:20 Total Bilirubin 0.6 mg/dL (0.2-1.0) 10/26/18 07:10 AST 15 U/L (15-37) 10/26/18 07:10 ALT 6 U/L (12-78) L 10/26/18 07:10 Alkaline Phosphatase 86 U/L (46-116) 10/26/18 07:10 Troponin I < 0.02 ng/mL (0.00-0.06) 10/25/18 20:55 Total Protein 6.1 g/dL (6.4-8.2) L 10/26/18 07:10 Albumin 1.4 g/dL (3.4-5.0) L 10/26/18 07:10 Urine Color Yellow (Yellow) 11/04/18 18:59 Urine Clarity Clear 11/04/18 18:59 Urine pH 7.5 (5-8) 11/04/18 18:59 Ur Specific [place] 1.015 (1.005-1.025) 11/04/18 18:59 Urine Protein Negative mg/dL (Negative) 11/04/18 18:59 Urine Ketones Negative mg/dL (Negative) 11/04/18 18:59 Urine Blood Negative (Negative) 11/04/18 18:59 Urine Nitrite Negative (Negative) 11/04/18 18:59 Urine Bilirubin Negative (Negative) 11/04/18 18:59 Urine Urobilinogen 0.2 EU/dL (Up TO 0.2) 11/04/18 18:59 Ur Leukocyte Esterase Negative (Negative) 11/04/18 18:59 Urine Glucose Negative mg/dL (Negative) 11/04/18 18:59 Vancomycin Trough 20.2 ug/mL (10.0-20.0) H* 11/04/18 15:52 Patient ABO/Rh O Positive 10/29/18 08:50 Antibody Screen Negative 10/29/18 08:50 Crossmatch See Detail 10/29/18 08:50
[2018-11-07] MEDS: Mirtazapine 15 MG TAB 7.5 MG NG (22:12)
[2018-11-08 00:21] VITALS: BP 120/65; PULSE 106; RESP 18; TEMP 37.8; O2SAT 98
[2018-11-08] MEDS: Normal Saline Flush 10 ML SYR IVP ×5 (00:36→23:37)
[2018-11-08] MEDS: Metoclopramide 10 MG/2 ML VIAL 5 MG IVP ×5 (00:37→23:38)
[2018-11-08] MEDS: Acetaminophen Solution 650 MG/20.3 ML CUP 1000 MG UD ×2 (06:07→18:15)
[2018-11-08] MEDS: Levothyroxine 50 MCG TAB UD (06:07)
[2018-11-08 07:33] VITALS: BP 149/67; PULSE 90; RESP 16; TEMP 36.9; O2SAT 99
[2018-11-08 07:34] LABS: Abs Immature Grans 0.06 k/cumm (0.0-0.09); Absolute Eosinophil Count 0.26 k/cumm (0.0-0.7); Absolute Monocyte Count 0.97 k/cumm (0.11-0.7); Basophils % 0.5; HCT 25.7 % (36.0-46.0); HGB 8.4 g/dL (12.0-15.5); Immature Grans % 0.5; Lymphocytes % 11.5; Mean Corp. HGB Concentration 32.7 g/dL (32.0-36.0); Mean Corpuscular Hemoglobin 30.7 pg (27.0-33.0); Mean Corpuscular Volume 93.8 fL (80-95); Mean Platelet Volume 8.6 fL (8.0-11.0); Monocytes % 7.4; Neutrophils % 78.1; Platelet Count 637 x1000/uL (130-400); RBC 2.74 m/cumm (4.00-5.20); RBC Distribution Width 15.2 % (11.7-14.6); White Blood Cell Count 13.09 k/cumm (4.4-10.8)
[2018-11-08 07:36] LABS: Absolute Basophil Count 0.07 k/cumm (0.0-0.2); Absolute Lymphocyte Count 1.51 k/cumm (1.2-3.4); Absolute Neutrophil Count 10.22 k/cumm (1.2-6.7)
[2018-11-08 07:44] LABS: Anion Gap 10.5 mmol/L (3-11); BUN 11 mg/dL (7-18); CO2 24.5 mmol/L (21.0-32.0); CREATININE 0.83 mg/dL (0.55-1.02); Calcium 10.9 mg/dL (8.5-10.1); Chloride 99 mmol/L (98-107); Glucose 146 mg/dL (70-100); Magnesium 1.3 mg/dL (1.8-2.4); Potassium 3.7 mmol/L (3.5-5.1); Sodium 134 mmol/L (136-145)
[2018-11-08] MEDS: Potassium Chloride Liquid 20 MEQ PKT 40 MEQ NG (08:14)
[2018-11-08] MEDS: Metoprolol 12.5 MG TAB NG ×2 (08:14→20:00)
[2018-11-08] MEDS: Folic Acid 1 MG TAB UD (08:14)
[2018-11-08] MEDS: Thiamine 100 MG TAB UD (08:14)
[2018-11-08] MEDS: Rosuvastatin 5 MG TAB UD (08:14)
[2018-11-08] MEDS: Magnesium Oxide 400 MG TAB 800 MG NG ×3 (08:14→20:00)
[2018-11-08] MEDS: Venlafaxine 75 MG TAB NG ×2 (08:14→20:00)
[2018-11-08] MEDS: Lactobacillus Acidophilus CAP 1 CAP PO ×3 (08:15→20:00)
--- NOTE | 2018-11-08 10:58 | DI.RAD_ITS ---
SYMPTOMS/DIAGNOSIS: F/U PICC PA AND LATERAL CHEST: Comparison: Oct 26. A PICC line is again seen entering via the left arm. The tip lies in the SVC, unchanged in position. The heart size is normal. The lungs appear clear. There has been interval clearing of the previously noted left lower lobe infiltrate. There are old left rib fractures. No pneumothorax is seen. IMPRESSION: No change in position of PICC line.
[2018-11-08 11:55] VITALS: BP 121/77; PULSE 95; RESP 18; TEMP 36.5; O2SAT 98
[2018-11-08] MEDS: Alteplase 2 MG VIAL IJ (13:39)
[2018-11-08] MEDS: POTASSIUM CHLORIDE 10 MEQ/100 ML BAG 100 MEQ IVPB ×4 (14:40→21:07)
[2018-11-08 15:26] VITALS: BP 107/50; PULSE 95; RESP 18; TEMP 36.8; O2SAT 100
--- NOTE | 2018-11-08 15:51 | CHAPLAIN ---
Cece said she is feeling in limbo waiting to hear if she will be transferred to [facility] so she can begin her chemo/radiation treatments. She is frustrated by not being able to begin the treatments as scheduled because of complications with her feeding tube. A hairstylist came in and cut her hair short. Cece said she wanted to lose my hair on my own terms and not have the cancer take it. She also received a manicure and really liked that. She likes her short haircut as well. She is waiting to hear if Dr. Cheek was able to arrange her transfer to [facility].
--- NOTE | 2018-11-08 16:21 | W.NUTRFU ---
Date of service: 11/08/18 Time of Service: 16:23 Nutritional Follow up NOTE: Ms. Welch is receiving Jevity 1.2 kevin and Osmolite 1.2 kevin at 1:1 ratio at 50 ml/hr. She is having high residuals and she has had a significant weight loss of 10.2% in 6 weeks. Depending on her wishes and the goals of her care, would consider TPN or perhaps we should consider trialing different formulas and/or regimens. Time Spent in Nutritional Counseling and Treatment: PARDEEP
--- NOTE | 2018-11-08 16:37 | PDOC.CMPRO ---
- If Service Date Differs Date of service: 11/08/18 Time of Service: 16:38 Care Management Progress Note S/O: Cece was lying in bed when CM visited this morning. She reports that she is becoming increasingly frustrated about waiting for treatment and just wants chemo and radiation to begin shrinking her mass. She denies any pain at this moment and has been ambulating well in the hallways with encouragement. Cece continues to receive TPN and needs continual reminding to sit up due to feedings. A: 53 year old female admitted with hypokalemia and hypomagnesemia with esophageal cancer. P: Cece remains acute today with no change in status. Provider will continue to advocate for transfer of Cece to tertiary center. Transportation pending discharge disposition. CM will continue to offer support to patient, family, and care team regarding discharge planning and disposition as well as notify [facility] of developments.
--- NOTE | 2018-11-08 16:40 | CMPROGNOTE_ITS ---
- If Service Date Differs Date of service: 11/08/18 Time of Service: 16:38 Care Management Progress Note S/O: Cece was lying in bed when CM visited this morning. She reports that she is becoming increasingly frustrated about waiting for treatment and just wants chemo and radiation to begin shrinking her mass. She denies any pain at this moment and has been ambulating well in the hallways with encouragement. Cece continues to receive TPN and needs continual reminding to sit up due to fee dings. A: 53 year old female admitted with hypokalemia and hypomagnesemia with esophageal cancer. P: Cece remains acute today with no change in status. Provider will continue to advocate for transfer of Cece to tertiary center. Transportation pending discharge disposition. CM will continue to offer support to patient, family, and care team regarding discharge planning and disposition as well as notify [facility] of developments.
[2018-11-08] MEDS: LEVOFLOXACIN 500 MG/100 ML BAG 100 MG IVPB (17:51)
[2018-11-08 18:59] VITALS: BP 109/50; PULSE 105; RESP 18; TEMP 37.1; O2SAT 99
[2018-11-08] MEDS: Mirtazapine 15 MG TAB 7.5 MG NG (21:06)
[2018-11-09 00:54] VITALS: BP 160/77; PULSE 90; RESP 16; TEMP 36.7; O2SAT 98
[2018-11-09 03:44] VITALS: BP 156/82; PULSE 111; RESP 18; TEMP 36.9; O2SAT 98
[2018-11-09] MEDS: Metoclopramide 10 MG/2 ML VIAL 5 MG IVP ×3 (06:12→18:18)
[2018-11-09] MEDS: Normal Saline Flush 10 ML SYR IVP ×5 (06:13→18:19)
[2018-11-09] MEDS: Levothyroxine 50 MCG TAB UD (06:14)
[2018-11-09 06:52] VITALS: BP 146/82; PULSE 107; RESP 16; TEMP 36.4; O2SAT 97
[2018-11-09 07:49] LABS: Abs Immature Grans 0.08 k/cumm (0.0-0.09); Absolute Eosinophil Count 0.21 k/cumm (0.0-0.7); Absolute Lymphocyte Count 1.59 k/cumm (1.2-3.4); Basophils % 0.4; Eosinophils % 1.5; HCT 24.9 % (36.0-46.0); HGB 7.9 g/dL (12.0-15.5); Immature Grans % 0.6; Lymphocytes % 11.2; Mean Corp. HGB Concentration 31.7 g/dL (32.0-36.0); Mean Corpuscular Hemoglobin 29.9 pg (27.0-33.0); Mean Corpuscular Volume 94.3 fL (80-95); Mean Platelet Volume 8.8 fL (8.0-11.0); Monocytes % 5.9; Neutrophils % 80.4; RBC 2.64 m/cumm (4.00-5.20); RBC Distribution Width 15.1 % (11.7-14.6); White Blood Cell Count 14.18 k/cumm (4.4-10.8)
[2018-11-09 07:55] LABS: Absolute Basophil Count 0.06 k/cumm (0.0-0.2); Absolute Monocyte Count 0.84 k/cumm (0.11-0.7)
[2018-11-09 07:57] LABS: Platelet Count 712 x1000/uL (130-400)
[2018-11-09 08:01] LABS: Anion Gap 11.8 mmol/L (3-11); BUN 12 mg/dL (7-18); CO2 23.2 mmol/L (21.0-32.0); Calcium 10.8 mg/dL (8.5-10.1); Chloride 97 mmol/L (98-107); Glucose 164 mg/dL (70-100); Sodium 132 mmol/L (136-145)
[2018-11-09] MEDS: Magnesium Oxide 400 MG TAB 800 MG NG ×2 (10:33→14:49)
[2018-11-09] MEDS: Pantoprazole 40 MG VIAL IVP (10:33)
[2018-11-09] MEDS: Potassium Chloride Liquid 20 MEQ PKT 40 MEQ NG (10:34)
[2018-11-09] MEDS: Lactobacillus Acidophilus CAP 1 CAP PO ×2 (10:34→14:49)
[2018-11-09] MEDS: Rosuvastatin 5 MG TAB UD (10:34)
[2018-11-09] MEDS: Venlafaxine 75 MG TAB NG (10:34)
[2018-11-09] MEDS: Metoprolol 12.5 MG TAB NG (10:34)
[2018-11-09] MEDS: Thiamine 100 MG TAB UD (10:34)
[2018-11-09] MEDS: Folic Acid 1 MG TAB UD (10:34)
[2018-11-09 12:57] VITALS: BP 148/72; PULSE 94; RESP 18; TEMP 37.5; O2SAT 100
--- NOTE | 2018-11-09 13:58 | CHAPLAIN ---
Ceec said she had a difficult morning and was really said because an anniversary notice popped up on her Facebook page from when she had finished her chemo for breast cancer and was feeling good and healthy, and now a year later, and I'm back there waiting for treatment, she said. [facility] has accepted Cece and she'll be transferred there where she can receive her cancer treatments and deal with her feeding tube problems at the same time. She was wearing a necklace that she told me her boyfriend had given her and she explained that he could be nice but more often was not nice to her, and I don't deserve that. She planned to pack her stuff and then nap, so she'll be ready if she is transferred to [facility] today.
--- NOTE | 2018-11-09 14:35 | W.PM.PROGNOT ---
Date of Service Date of service: 11/08/18 Time of Service: 18:07 Assessment and Plan (1) Aspiration pneumonia: Current visit: No Status: Acute (2) Uncontrolled pain: Current visit: Yes Status: Resolved (3) Squamous cell carcinoma of esophagus: Current visit: No Status: Acute (4) Bacteremia: Current visit: No Status: Resolved (5) Malnutrition: Current visit: No Status: Chronic Qualifiers: Malnutrition type: protein-calorie malnutrition Protein-calorie malnutrition severity: severe Qualified Code(s): E43 - Unspecified severe protein-calorie malnutrition (6) Hypomagnesemia: Current visit: No Status: Resolved Continue to monitor and replete aggressively. (7) Tobacco abuse: Current visit: No Status: Chronic Continue and NRT. (8) Depression: Current visit: No Status: Chronic Currently on SNRI, and nightly mirtazapine. (9) Anemia: Current visit: No Status: Chronic Potentially anemia of chronic disease based on normal iron, Low TIBC and elevated Ferritin checked last admission. B12, FA, and TSH all checked and normal. S/p transfusion of 1 unit pRBC's on this admission. However, now testing positive for stool occult blood. Not on anticoagulation. Continue PPI. Monitor Hgb carefully and transfuse as required. (10) Discharge planning issues: Current visit: Yes Status: Acute (11) Breast cancer: Current visit: No Status: Chronic IDC, ER/[place] +, s/p lumpectomy and XRT, noncompliant with tamoxifen therapy (12) PAD (peripheral artery disease): Current visit: No Status: Chronic Patient already follows with vascular at [facility]. No signs of critical limb ischemia. Continue statin therapy. Also on BB . Aspirin currently on hold. Previously initiated DB inhibitor is no longer active. (13) DVT prophylaxis: Current visit: No Status: Acute SCDs given ongoing and worsening anemia. No evidence of DVTs by recent ultrasound on 11/05. Objective Objective Clinical Data: Abnormal lab results 11/09/18 11/09/18 Range/Units 07:25 07:25 WBC 14.18 H (4.4-10.8) k/cumm RBC 2.64 L (4.00-5.20) m/cumm Hgb 7.9 L (12.0-15.5) g/dL Hct 24.9 L (36.0-46.0) % MCHC 31.7 L (32.0-36.0) g/dL RDW 15.1 H (11.7-14.6) % Plt Count 712 H (130-400) x1000/uL Absolute Neutrophils 11.40 H (1.2-6.7) k/cumm Absolute Monocytes 0.84 H (0.11-0.7) k/cumm Sodium 132 L (136-145) mmol/L Chloride 97 L (98-107) mmol/L Anion Gap 11.8 H (3-11) mmol/L Glucose 164 H (70-100) mg/dL Calcium 10.8 H (8.5-10.1) mg/dL Magnesium 1.0 L (1.8-2.4) mg/dL Vital Signs Temperature 37.5 C 11/09/18 12:57 Temperature Source Skin 11/09/18 12:57 Pulse 94 H 11/09/18 12:57 Pulse Rhythm Regular 11/09/18 09:27 Pulse 92 H 10/25/18 23:40 Respiratory Rate 18 11/09/18 12:57 Respiratory Effort Non-Labored 11/09/18 09:27 Respiratory Depth Normal 11/09/18 09:27 Respiratory Pattern Normal 11/09/18 09:27 Blood Pressure 148/72 H 11/09/18 12:57 Blood Pressure Position Supine 10/25/18 20:27 Pulse Oximetry 100 11/09/18 12:57 Respiratory End-tidal CO2 31 10/28/18 10:58 Oxygen Delivery Method Room Air 11/09/18 12:57 Oxygen Flow Rate 0 11/09/18 12:57 Fraction of Inspired Oxygen (FIO2) 100 10/27/18 17:00 Pain Level 0 11/09/18 12:57 Comment 11/07/18 05:15 Intake & Output 11/08/18 11/09/18 11/09/18 23:59 11:59 23:59 Intake Total 1523 / 2855.667 300 / 600 300 / 600 Output Total 650 / 2040 190 / 190 Balance 873 / 815.667 110 / 410 300 / 410 Weight 47 kg Intake: IV 462 / 803.667 Oral 300 / 600 300 / 600 Intake, Tube Feeding Amount 1061 / 1452 Output: Urine 200 / 1150 Stool 150 / 150 Output, Residual 450 / 890 40 / 40 Other: Urine Color Yellow Urine Appearance Clear Clear Comment pt voiding ad juan carlos in toilet; urine not assessed at this time Stool Size Small Stool Characteristics Soft Liquid Liquid Liquid Brown Voiding Methods Toilet Laboratory Results WBC 14.18 k/cumm (4.4-10.8) H 11/09/18 07:25 RBC 2.64 m/cumm (4.00-5.20) L 11/09/18 07:25 Hgb 7.9 g/dL (12.0-15.5) L 11/09/18 07:25 Hct 24.9 % (36.0-46.0) L 11/09/18 07:25 MCV 94.3 fL (80-95) 11/09/18 07:25 MCH 29.9 pg (27.0-33.0) 11/09/18 07:25 MCHC 31.7 g/dL (32.0-36.0) L 11/09/18 07:25 RDW 15.1 % (11.7-14.6) H 11/09/18 07:25 Plt Count 712 x1000/uL (130-400) H 11/09/18 07:25 MPV 8.8 fL (8.0-11.0) 11/09/18 07:25 Immature Gran % 0.6 11/09/18 07:25 Neutrophils % 80.4 11/09/18 07:25 Lymphocytes % 11.2 11/09/18 07:25 Monocytes % 5.9 11/09/18 07:25 Eosinophils % 1.5 11/09/18 07:25 Basophils % 0.4 11/09/18 07:25 Absolute Neutrophils 11.40 k/cumm (1.2-6.7) H 11/09/18 07:25 Absolute Lymphocytes 1.59 k/cumm (1.2-3.4) 11/09/18 07:25 Absolute Monocytes 0.84 k/cumm (0.11-0.7) H 11/09/18 07:25 Absolute Eosinophils 0.21 k/cumm (0.0-0.7) 11/09/18 07:25 Absolute Basophils 0.06 k/cumm (0.0-0.2) 11/09/18 07:25 Sodium 132 mmol/L (136-145) L 11/09/18 07:25 Potassium 4.0 mmol/L (3.5-5.1) 11/09/18 07:25 Chloride 97 mmol/L (98-107) L 11/09/18 07:25 Carbon Dioxide 23.2 mmol/L (21.0-32.0) 11/09/18 07:25 Anion Gap 11.8 mmol/L (3-11) H 11/09/18 07:25 BUN 12 mg/dL (7-18) 11/09/18 07:25 Creatinine 0.90 mg/dL (0.55-1.02) 11/09/18 07:25 Estimated GFR/1.73 m2 >= 60.00 (mL/min/1.73m2) 11/09/18 07:25 Glucose 164 mg/dL (70-100) H 11/09/18 07:25 Calcium 10.8 mg/dL (8.5-10.1) H 11/09/18 07:25 Magnesium 1.0 mg/dL (1.8-2.4) L 11/09/18 07:25 Total Bilirubin 0.6 mg/dL (0.2-1.0) 10/26/18 07:10 AST 15 U/L (15-37) 10/26/18 07:10 ALT 6 U/L (12-78) L 10/26/18 07:10 Alkaline Phosphatase 86 U/L (46-116) 10/26/18 07:10 Troponin I < 0.02 ng/mL (0.00-0.06) 10/25/18 20:55 Total Protein 6.1 g/dL (6.4-8.2) L 10/26/18 07:10 Albumin 1.4 g/dL (3.4-5.0) L 10/26/18 07:10 Urine Color Yellow (Yellow) 11/04/18 18:59 Urine Clarity Clear 11/04/18 18:59 Urine pH 7.5 (5-8) 11/04/18 18:59 Ur Specific [place] 1.015 (1.005-1.025) 11/04/18 18:59 Urine Protein Negative mg/dL (Negative) 11/04/18 18:59 Urine Ketones Negative mg/dL (Negative) 11/04/18 18:59 Urine Blood Negative (Negative) 11/04/18 18:59 Urine Nitrite Negative (Negative) 11/04/18 18:59 Urine Bilirubin Negative (Negative) 11/04/18 18:59 Urine Urobilinogen 0.2 EU/dL (Up TO 0.2) 11/04/18 18:59 Ur Leukocyte Esterase Negative (Negative) 11/04/18 18:59 Urine Glucose Negative mg/dL (Negative) 11/04/18 18:59 Vancomycin Trough 20.2 ug/mL (10.0-20.0) H* 11/04/18 15:52 Patient ABO/Rh O Positive 10/29/18 08:50 Antibody Screen Negative 10/29/18 08:50 Crossmatch See Detail 10/29/18 08:50
--- NOTE | 2018-11-09 15:08 | PDOC.CMPRO ---
- If Service Date Differs Date of service: 11/09/18 Time of Service: 15:08 Care Management Progress Note S/O: Cece is lying in bed when this commercial insurance underwriter visits this morning, she has tissues on her bed and her eyes are reddened. Cece shows CM a post of hers from a year ago on Facebook in regards to being in remission and feeling great. Cece states that this brought up a lot of feelings for her. She reports feeling stuck at this time, and as though there is no movement in regards to potentially going to [facility]. She states If [facility] can't get me in, then just send me home to . CM processed feelings with Cece in regards to the above, and summarized her feelings with her. CM addressed Cece's worries, as well as her concerns in regards to wanting to go to [facility], however having them not accept her. After this discussion CM met with Dr. Cheek whom states that Cece has been accepted at [facility] and that they are awaiting a bed to become available. Dr. Bland also met with Cece today in regards to the above and assisting with processing feelings. A: 53 year old female admitted with hypokalemia and hypomagnesemia with esophageal cancer. P: Cece remains acute today with no change in status. Cece will transfer to [facility] when a bed becomes available. CM will continue to offer support to patient, family, and care team regarding discharge planning and disposition as well as notify [facility] of developments.
--- NOTE | 2018-11-09 15:14 | CMPROGNOTE_ITS ---
- If Service Date Differs Date of service: 11/09/18 Time of Service: 15:08 Care Management Progress Note S/O: Cece is lying in bed when this selling underwriter visits this morning, she has tissues on her bed and her eyes are reddened. Cece shows CM a post of hers from a year ago on Facebook in regards to being in remission and feeling great. Cece states that this brought up a lot of feelings for her. She reports feeling stuck at this time, and as though there is no movement in regards to potentially going to [facility]. She states If [facility] can't get me in, then just send me home to . CM processed feelings with Cece in regards to the above, and summarized her feelings with her. CM addressed Cece's worries, as well as her concerns in regards to wanting to go to [facility], however having them not accept her. After this discussion CM met with Dr. Cheek whom states that Cece has been accepted at [facility] and that they are awaiting a bed to become available. Dr. Bland also met with Cece today in regards to the above and assisting with processing feelings. A: 53 year old female admitted with hypokalemia and hypomagnesemia with esophageal cancer. P: Cece remains acute today with no change in status. Cece will transfer to [facility] when a bed becomes available. CM will continue to offer support to patient, family, and care team regarding discharge planning and disposition as well as notify [facility] of developments.
[2018-11-09] MEDS: MAGNESIUM SULFATE 4 GM/100 ML BAG IVPB (15:30)
[2018-11-09 16:02] VITALS: BP 126/64; PULSE 101; RESP 20; TEMP 37.5; O2SAT 99
--- NOTE | 2018-11-09 18:15 | W.PM.DS.N ---
Date of service: 11/09/18 Time of Service: 18:15 DS: Diagnosis Discharge Diagnosis (1) Aspiration pneumonia: Status: Acute (2) Squamous cell carcinoma of esophagus: Status: Acute (3) Bacteremia: Status: Resolved (4) Malnutrition: Status: Chronic (5) Hypomagnesemia: Status: Resolved (6) Depression: Status: Chronic (7) Anemia: Status: Chronic Discharge Plan Disposition Patient Disposition: [facility] Condition: Stable Discharge Details Chief Complaint: GenMedical Reason For Visit: HYPOKALEMIA AND HEPOMAGNESEMIA WITH ESOPHAGEAL CAN Admit Date/Time: 10/26/18 08:35 Admit Provider: Zach Palacios Attending Provider: Zach Palacios Primary Care Provider: Rowena Mayo V ED Provider: Komal Chambers Hospital Course Hospital Course: CC: Dysphagia HPI: 53 year old unfortunate female with a prior history of ETOH abuse admitted from [facility] Emergency Department on 10/28/2018 with reported dysphagia and decreased oral intake. Ms. Welch has a prior medical history significant for breast cancer s/p lumpectomy and XRT, previously noncompliant with tamoxifen therapy. She has also has a history of esophageal squamous cell CA diagnosed recently by EGD at [facility]. She has a prior history of tobacco and ETOH abuse, with recent cessation. Other history also includes PAD which is followed at [facility], hypertension, and hypothyroidism. The patient was recently admitted at [facility] in September 2018, and treated for pneumonia with concurrent MSSA bacteremia. She underwent an acute alcohol withdrawl. She also had an esophageal mass identified on CT imaging, with significant dysphasia to solids that eventually necessitated a trip to [facility] for an endoscopy with biopsy, path returned with a moderately differentiated squamous cell carcinoma. Ms. Welch was anemic for the majority of her stay at that time, with initial workup showing potential anemia of chronic disease - however upon her return to the hospital following her biopsy she had a large black stool, Hemoccult positive, at which time she became hypotensive with worsening anemia necessitating transfer to [facility]. The transfer to the outside institution occurred on 10 October. On 26 October Ms. Welch presented back to [facility] with reported significant difficulty in swallowing, with significant electrolyte abnormalities and hardship tolerating her liquid diet. Upon her discharge she was advised on a mostly milk-containing liquid diet to accommodate for her dysphasia, but due to her lactose intolerance she had a difficult time maintaining adequate oral intake. On the she underwent successful PEG tube placement, and was initiated on tube feeds. Shortly after she completed her course of nafcillin for a 4-week total treatment of MSSA bacteremia. However, shortly after initiation of tube feeds the patient experienced a worsening cough and worsening leukocytosis by labs, with chest x-ray showing either incomplete resolution of prior infiltrates or now new and worsening pathology in her lungs. As it had been well over a month since she had been initiated on on on treatment for her prior pneumonia, this was deemed likely secondary to aspiration, and the patient was started on treatment with Zosyn. Since that time the patient has had intermittently improving then worsening leukocytosis, as well as intermittently improving and worsening cough, which seems to be worse after sleeping. As tube feeds have been with fairly high residuals, she has required essentially [id number] tube feeding, and when sleeping has been found to slide down in bed to an essentially supine position despite elevation in her head of bed. Concern has been for intermittent aspiration events. Repeat blood cultures remained negative, and certainly did not grow any further MSSA that would indicate incomplete treatment of her former bacteremia. Ms. Welch has also experienced intermittently dropping H/H with occasional need for transfusion. Her stool continues to test positive for occult blood. She has been maintained on PPI therapy, but concern is for potential bleed from her esophageal mass. She has also had significant hypomagnesemia despite attempts at repletion with daily high dose IV as well as high dose oral (Peg Tube) Magnesium supplementation. Overall the patient is failing to thrive and continues to be malnurished. With the likely continued slow bleed as well as inability to take in oral intake, and potential recurrent aspiration she would benefit from initiation of Radiation therapy or other modality of therapy for her esophageal mass sooner rather than later. She is unlikely to improve to the point of being safely discharged for follow-up as an outpatient, and has already missed her appointment for Radiation Oncology due to this current hospitalization. This was discussed in detail with the Hospitalist team at [facility], and Dr. Simons was kind enough to accept this patient in transfer following his discussion with medical Oncology. She is being transferred in stable condition. Home Meds and New Rx's Prescriptions: No Action fluticasone [Flonase Allergy Relief] 50 mcg/actuation [place],Suspension 2 spray INTRANASAL DAILY PRNRF: 0 acetaminophen [Acephen] 650 mg Suppository 650 mg IN Q6H PRN PRNQty: 0 RF: 0 multivitamin Tablet 1 tab PO DAILY RF: 0 bupropion HCl 150 mg Tablet Sustained-Release 12 Hr 150 mg PO BID RF: 0 thiamine HCl (vitamin B1) [Vitamin B-1] 100 mg Tablet 100 mg PO DAILY RF: 0 omeprazole 40 mg Capsule,Delayed Release(Dr/Ec) 40 mg PO DAILY RF: 0 nafcillin 2 gram Recon Soln 2 g IV Q4H RF: 0 folic acid 1 mg Tablet 1 mg PO DAILY RF: 0 tamoxifen 20 mg Tablet 20 mg PO DAILY RF: 0 rosuvastatin 5 mg Tablet 5 mg PO DAILY RF: 0 venlafaxine 150 mg Tablet Extended Release 24hr 150 mg PO DAILY RF: 0 levothyroxine 50 mcg Capsule 50 mcg PO DAILY RF: 0 Discharge Instructions Stand Alone Forms: Nursing Discharge Form Referrals: Paris Samano [ NON-[facility] STAFF PHYSICIAN] - 11/08/18 1:30 pm Activity:: Ambulate with Assistance Diet:: Tube Feeds Discharge Orders Discharge Orders: Discharge Order (Routine); Ordered 11/09/18 Ordered By: Jomar Cheek DS: Data Vitals/I&O Vitals and I&O: Vital Signs Temperature 37.5 C 11/09/18 16:02 Temperature Source Tympanic 11/09/18 16:02 Pulse 101 H 11/09/18 16:02 Pulse Rhythm Regular 11/09/18 17:38 Pulse 92 H 10/25/18 23:40 Respiratory Rate 20 11/09/18 16:02 Respiratory Effort Non-Labored 11/09/18 17:38 Respiratory Depth Normal 11/09/18 17:38 Respiratory Pattern Normal 11/09/18 17:38 Blood Pressure 126/64 11/09/18 16:02 Blood Pressure Position Supine 10/25/18 20:27 Pulse Oximetry 99 11/09/18 16:02 Respiratory End-tidal CO2 31 10/28/18 10:58 Oxygen Delivery Method Room Air 11/09/18 16:02 Oxygen Flow Rate 0 11/09/18 16:02 Fraction of Inspired Oxygen (FIO2) 100 10/27/18 17:00 Pain Level 0 11/09/18 12:57 Comment 11/07/18 05:15 Intake & Output 11/08/18 11/09/18 11/09/18 23:59 11:59 23:59 Intake Total 1523 / 2855.667 300 / 1135 835 / 1135 Output Total 650 / 2040 190 / 190 Balance 873 / 815.667 110 / 945 835 / 945 Weight 47 kg Intake: IV 462 / 803.667 Oral 300 / 600 300 / 600 Intake, Tube Feeding Amount 1061 / 1452 535 / 535 Output: Urine 200 / 1150 Stool 150 / 150 Output, Residual 450 / 890 40 / 40 Other: Urine Color Yellow Urine Appearance Clear Clear Comment pt voiding ad juan carlos in toilet; urine not assessed at this time Stool Size Small Stool Characteristics Soft Liquid Liquid Liquid Brown Voiding Methods Toilet Completed studies during hospitalization [Text1]: XR portable chest AP SYMPTOM/DIAGNOSIS: R/O PNA PORTABLE AP CHEST: 1030 HOURS 10/30/18 The heart is not enlarged. There are streaky and patchy areas of increased radiodensity in the lung bases bilaterally. Findings in the left lung base are probably decreased from the previous examination of September 26. Possible new right pleural effusion noted. Left PICC line noted with tip in the SVC. CONCLUSION: Findings consistent with incomplete resolution of basilar pneumonia vs recurrent disease, new right pleural effusion, consider chest CT for further evaluation. XR portable chest AP SYMPTOM/DIAGNOSIS: PERSISTENT FEVERS, F/U PNA PORTABLE CHEST: 11/04/18 Single AP portable study. When compared with the previous examination of 10/30/18 there has been significant interval clearing of the regions of abnormality in the lung bases with apparent resorption of a right pleural effusion. There has been otherwise no interval change. US upper extremity venous LT SYMPTOMS/DIAGNOSIS: SWELLING, ? DVT LEFT UPPER EXTREMITY ULTRASOUND: There is no evidence of a deep venous thrombosis of superficial venous thrombus in the left upper extremity. The jugular vein also appears free of thrombus. No soft tissue hematoma or fluid collection is seen. There is limited visibility of the PICC line at the insertion due to bandages. IMPRESSION: No evidence of deep venous thrombosis or superficial venous thrombosis. XR chest 2V PA & lateral SYMPTOMS/DIAGNOSIS: F/U PICC PA AND LATERAL CHEST: Comparison: Oct 26. A PICC line is again seen entering via the left arm. The tip lies in the SVC, unchanged in position. The heart size is normal. The lungs appear clear. There has been interval clearing of the previously noted left lower lobe infiltrate. There are old left rib fractures. No pneumothorax is seen. IMPRESSION: No change in position of PICC stewart Labs on day of discharge: Labs from last 24 hours 11/09/18 11/09/18 07:25 07:25 WBC 14.18 H RBC 2.64 L Hgb 7.9 L Hct 24.9 L MCV 94.3 MCH 29.9 MCHC 31.7 L RDW 15.1 H Plt Count 712 H MPV 8.8 Immature Gran % 0.6 Neutrophils % 80.4 Lymphocytes % 11.2 Monocytes % 5.9 Eosinophils % 1.5 Basophils % 0.4 Absolute Neutrophils 11.40 H Absolute Lymphocytes 1.59 Absolute Monocytes 0.84 H Absolute Eosinophils 0.21 Absolute Basophils 0.06 Sodium 132 L Potassium 4.0 Chloride 97 L Carbon Dioxide 23.2 Anion Gap 11.8 H BUN 12 Creatinine 0.90 Estimated GFR/1.73 m2 >= 60.00 Glucose 164 H Calcium 10.8 H Magnesium 1.0 L Preliminary micro results at discharge 11/04/18 17:58 Blood Culture - Preliminary Blood NO GROWTH 96 HOURS Blood Culture ( Age => 10 Yrs) Final 11/05/18-1510 NO GROWTH 120 HOURS Urine Culture Final 11/02/18-0853 Day 1 Result ISOLATES BELOW ISOLATE 1 COLONY COUNT <10,000 COLONIES/ML ISOLATE 1 APPEARANCE Gram Positive Quin Day 2 Result ISOLATES BELOW ISOLATE 1 COLONY COUNT 10,000 - 50,000 COLONIES/ML ISOLATE 1 APPEARANCE Mixed Gram Positive Quin Organism 1 GRAM POSITIVE QUIN,MIXED COLONY COUNT 10,000 - 50,000 COLONIES/ML C Difficile Screen Final 10/30/18-2206 C Difficile Antigen Negative C Difficile Toxin Negative Interpretation Negative for toxigenic Clostridium difficile Blood Culture ( Age => 10 Yrs) Final 11/09/18-175 NO GROWTH 120 HOURS Urine Culture Final 11/06/18-934 Day 1 Result NO GROWTH 24 HOURS Day 2 Result NO GROWTH 48 HOURS [facility] Medical History Abdominal pain (Acute) Depression (Chronic) Cachexia (Acute) Bacteremia (Resolved) Squamous cell carcinoma of esophagus (Acute) Malnutrition (Chronic) Hypokalemia (Resolved) Hypomagnesemia (Resolved) Medical non-compliance (Chronic) Tobacco abuse (Chronic) Breast cancer (Chronic) PAD (peripheral artery disease) (Chronic) Dysphagia (Chronic) Alcohol abuse (Chronic) Claudication in peripheral vascular disease (Acute) Weight loss of more than 10% body weight (Acute) Hypertension (Chronic) Hypothyroidism (Chronic) Surgical History H/O breast biopsy (Chronic) Hx of tubal ligation (Chronic) S/P breast lumpectomy (Chronic) Social History caregiver/support person: No household members: none housing: other details: has a house but cannot access it due to her illnesses and weakness marital status: single lives independently: Yes number of children: 2 fci: No current occupational status: disabled current occupation: was working at [employer], couldn't do her job anymore pets and animals: No well-balanced diet: rarely or never eating out: rarely or never reads food labels: seldom or never during the past year weight has: decreased > 10 lbs Smoking/Tobacco Use Status: Former Tobacco Use alcohol intake: former
[2018-11-09] MEDS: LEVOFLOXACIN 500 MG/100 ML BAG 100 MG IVPB (19:00)
== END 2018-11-09 19:25 | disposition short-term general hospital (02) | DRG 177 ==
LOC: ER 23:08 → MS 10-26 01:04
PROVIDERS: Internal Medicine; Surgery; Admitting Provider Family Medicine; Emergency Provider Physician Assistant; PCP Family Medicine; Visit Provider Family Medicine
PROC: 0DH63UZ Insertion of Feeding Device into Stomach, Percutaneous Approach (ICD-10-PCS; CPT 43246; principal; 2018-10-28 08:30)
DX: C15.9 Malignant neoplasm of esophagus, unspecified (principal); A41.9 Sepsis, unspecified organism; E46 Unspecified protein-calorie malnutrition; J69.0 Pneumonitis due to inhalation of food and vomit; Z68.1 Body mass index [BMI] 19.9 or less, adult; R64 Cachexia; Z43.1 Encounter for attention to gastrostomy; E87.6 Hypokalemia; K22.2 Esophageal obstruction; R13.10 Dysphagia, unspecified; E83.42 Hypomagnesemia; I16.0 Hypertensive urgency; F32.9 Major depressive disorder, single episode, unspecified; F10.20 Alcohol dependence, uncomplicated; R52 Pain, unspecified; Z91.19 Patient's noncompliance with other medical treatment and regimen; M79.89 Other specified soft tissue disorders; R06.09 Other forms of dyspnea; D50.0 Iron deficiency anemia secondary to blood loss (chronic); Z85.3 Personal history of malignant neoplasm of breast; Z79.810 Long term (current) use of selective estrogen receptor modulators (SERMs); I73.9 Peripheral vascular disease, unspecified; Z87.891 Personal history of nicotine dependence; I10 Essential (primary) hypertension; E03.9 Hypothyroidism, unspecified; E73.9 Lactose intolerance, unspecified
CPT/HCPCS: 43246; 36410; 36415; 36430; 36592; 80048; 80053; 85027; 86850; 86900; 86901; 86920; 87040; 93005; 96360; 96361; 99223; 99231; 99232; 99233; 99239; 99252; 99255; 99285; NC; 49465; 71045; 71046; 80202; 81003; 83735; 84132; 84484; 85014; 85018; 85025; 87086; 87324; 93010; 93971; 99220; G0378; J1644; J1956; J2405; J2543; J2765; J2997; J3010; J3475; J3480; J3490; P9016; Q9967

== ENCOUNTER 2018-11-20 14:21 | Emergency (ER) | payer MEDICAID, SELFPAY ==
[2018-11-20 14:51] VITALS: BP 148/68; PULSE 116; RESP 15; O2SAT 95
--- NOTE | 2018-11-20 15:37 | PDOC.ERCMPRO ---
Care Management Progress Note Dr. Lynn requested this proposal lead writer meet with Cece regarding home based service supports, increased supports and returning to the community. Per MD, Cece is reporting she can not manage her care needs and reported [facility] services reported they would no longer be coming out to the home. Per MD, Cece also reported she called head control clerk MD who directed her to ER for Snf placement. CM called head control clerkacoustical material worker for [facility]; Diana who reported the goal would be for Cece to manage her own tube feeds in her home setting. Diana reported Cece had discharged from [facility] to her son's home recently and yesterday due to not getting along with her son, Cece returned to her own home setting in [place]. Diana reported a [facility] RN was responding to Cece's home twice daily and that Cece was struggling with learning to manage her own care needs. CM met with Cece in the ED, she was sitting on the side of the bed and engaged pleasantly and fully with this proposal lead writer. She voiced concerns over increased weakness and reported she would rather go to a SNF than manage the tube feeds at home and was not interested in learning how. CM reviewed community based plan for [facility] services and Cece verbalizes she knew the goal would be for her to learn how to manage her own care needs but that she felt weak and would prefer SNF placement at this time. CM reviewed lack of bed availability-Cece reported she would be willing to go to any open facility. Cece was provided contact info for this proposal lead writer and encouraged to discuss the above with her psychiatric social worker supervisor through [facility] on Thursday; Angélica Mccallum. CM agreed to support placement coordination as well. Ccee will likely consider LTC Medicaid or disability moving forward. CM called Diana to notify of discharge; Diana reported Saskia RN would be going to Cece's [facility] to support her with tube feeding. The goal will be for Cece to remain in the community until Cece and her community based supports can coordinate SNF placement.
--- NOTE | 2018-11-20 15:58 | W.ED.GENAD ---
Discharge Plan Disposition Patient Disposition: HOME Condition: Good Discharge Details Chief Complaint: GenMedical Clinical Impression: Leaking PEG tube, Physically well but worried Primary Care Provider: Rowena Mayo V ED Provider: Tony Lynn Home Meds and New Rx's Prescriptions: No Action fluticasone [Flonase Allergy Relief] 50 mcg/actuation [place],Suspension 2 spray INTRANASAL DAILY PRNRF: 0 acetaminophen [Acephen] 650 mg Suppository 650 mg AR Q6H PRN PRNQty: 0 RF: 0 multivitamin Tablet 1 tab PO DAILY RF: 0 bupropion HCl 150 mg Tablet Sustained-Release 12 Hr 150 mg PO BID RF: 0 thiamine HCl (vitamin B1) [Vitamin B-1] 100 mg Tablet 100 mg PO DAILY RF: 0 omeprazole 40 mg Capsule,Delayed Release(Dr/Ec) 40 mg PO DAILY RF: 0 nafcillin 2 gram Recon Soln 2 g IV Q4H RF: 0 folic acid 1 mg Tablet 1 mg PO DAILY RF: 0 tamoxifen 20 mg Tablet 20 mg PO DAILY RF: 0 rosuvastatin 5 mg Tablet 5 mg PO DAILY RF: 0 venlafaxine 150 mg Tablet Extended Release 24hr 150 mg PO DAILY RF: 0 levothyroxine 50 mcg Capsule 50 mcg PO DAILY RF: 0 Discharge Instructions Additional Instructions: If you notice any leaking from your PEG tube, please contact us immediately. If you notice any worsening of your symptoms, or any new symptoms such as vomiting, diarrhea, fever, chills, shortness of breath, chest pain, numbness, weakness, or fainting , please return immediately to the emergency department for reevaluation. Please follow up with your primary care provider as soon as possible for reassessment and reevaluation. As always, it was a pleasure participating in your medical care today. Referrals: Rowena Mayo MD [Primary Care Provider] - Medical Decision Making This is a pleasant 53-year-old female with esophageal cancer who is currently undergoing chemotherapy and radiation. She presents today because she is worried she cannot take care of herself. She has a PEG tube in place that is working well. Patient's concerns for loose PEG tube at the site of the stopcock seems to be unfounded. We were able to attach it well without any signs of abnormality, malfunction, or problem. The patient's primary concern seems to be that she is worried that she will not be able to care for herself if she does not have extra assistance at home. We did have the housing case manager come and discuss potential jail options versus continued home health at home. Through shared decision making process with myself, the patient, and care management patient has been given resources that she is asked for and are necessary. She feels currently now that she actually does have what she needs and she will hold off on jail pursuant at this time. All questions were answered, and extensive amount of time was spent with the patient answering all questions, reviewing her PEG tube, as well as evaluating her home needs. Patient's vital signs are reassuring. She does have mild tachycardia however review of previous vital signs demonstrate that the mild tachycardia is persistent and consistent with her multiple previous other visits. With no symptoms of chest pain, shortness of breath no fever, no other complaints, I do feel that she can be safely discharged home. She has resources that she needs, she feels comfortable with current plan. We discussed red flags which to return and the patient understands. I have extensively reviewed the treatment plan and discharge instructions with the patient. I have addressed all patient concerns at this time. The patient was made aware of what symptoms to monitor for that would warrant a return to the emergency department. Discussed the plan with the patient, they demonstrate verbal understanding and agreement with our assessment and plan at this time. HPI General Date/Time Provider Initiated Documentation: 11/20/18 14:23. HPI Narrative: This is a 53-year-old female with a past medical history of esophageal cancer with recent PEG tube placement for feeding, who presents today for concern for inability to care for her needs and PEG tube concern. She states that the PEG tube connector has come undone a few times at the connector between the stopcock and the secondary tubing. She was concerned that this may be an issue. Additionally her home health nursing staff stated today that they would no longer be able to come visit much anymore, and this worried the patient significantly. The patient contacted her primary care provider and told her that she felt that she was worried she might not be able to take care of herself without help, and the PCP recommended that she come in here for further evaluation and potential placement in a jail. The patient has no other complaints whatsoever. There have been no changes in her diet, she has been tolerating her tube feeds well. She has had no vomiting or blood in her stool. She denies any fevers, chills, chest pain or shortness of breath. She has been taking her medications at home with the help of home health. She denies any other complaints at this time. Patient states that the reason that she is in here is for assistance and potential jail placement. Related Data Home Medications Medication Instructions Recorded Confirmed fluticasone [Flonase Allergy 2 spray INTRANASAL DAILY PRN 10/01/18 10/25/18 Relief] acetaminophen [Acephen] 650 mg AR Q6H PRN PRN #0 ea 10/10/18 10/25/18 bupropion HCl 150 mg PO BID 10/25/18 10/26/18 folic acid 1 mg PO DAILY 10/25/18 10/25/18 levothyroxine 50 mcg PO DAILY 10/25/18 10/25/18 multivitamin 1 tab PO DAILY 10/25/18 10/25/18 nafcillin 2 g IV Q4H 10/25/18 10/25/18 omeprazole 40 mg PO DAILY 10/25/18 10/25/18 rosuvastatin 5 mg PO DAILY 10/25/18 10/25/18 tamoxifen 20 mg PO DAILY 10/25/18 10/25/18 thiamine HCl (vitamin B1) [Vitamin 100 mg PO DAILY 10/25/18 10/25/18 B-1] venlafaxine 150 mg PO DAILY 10/25/18 10/25/18 Previous Rx's Medication Instructions Recorded acetaminophen [Acephen] 650 mg AR Q6H PRN PRN #0 ea 10/10/18 Allergies Allergy/AdvReac Type Severity Reaction Status Date / Time No Known Allergies Allergy Unverified 10/25/18 20:41 General Stated Complaint: GenMedical DELMI: 4 Review of Systems Review of Systems All systems reviewed & are unremarkable except as noted in HPI and below PFSH Medical History Abdominal pain (Acute) Depression (Chronic) Cachexia (Acute) Bacteremia (Resolved) Squamous cell carcinoma of esophagus (Acute) Malnutrition (Chronic) Hypokalemia (Resolved) Hypomagnesemia (Resolved) Medical non-compliance (Chronic) Tobacco abuse (Chronic) Breast cancer (Chronic) PAD (peripheral artery disease) (Chronic) Dysphagia (Chronic) Alcohol abuse (Chronic) Claudication in peripheral vascular disease (Acute) Weight loss of more than 10% body weight (Acute) Hypertension (Chronic) Hypothyroidism (Chronic) Social History caregiver/support person: No household members: none housing: other details: has a house but cannot access it due to her illnesses and weakness lives independently: Yes number of children: 2 jail: No current occupational status: disabled current occupation: was working at [employer], couldn't do her job anymore pets and animals: No well-balanced diet: rarely or never eating out: rarely or never reads food labels: seldom or never during the past year weight has: decreased > 10 lbs Smoking/Tobacco Use Status: Former Tobacco Use alcohol intake: former Exam Narrative Exam Narrative: 1.Const: Thin elderly and cachectic appearing 2.Eyes: PERRL, no conjunctival injection, and symmetrical lids. 3.ENT: Atraumatic external nose and ears. Moist MM. Neck: Symmetric, trachea midline, No thyromegaly. 4.CVS: +S1/S2, No murmurs or gallops. Peripheral pulses 2+ and equal in all extremities. Brisk capillary refill in all extremities. 5.RESP: Unlabored respiratory effort. Clear to auscultation bilaterally. No wheezes rales or rhonchi 6.GI: Soft, Nontender/Nondistended, No hepatosplenomegaly. No guarding or rebound. Left-sided PEG tube is in place, no erythema or drainage. PEG tube is flowing well. 7.MSK: Normocephalic/Atraumatic, Extremities w/o deformity or ttp No cyanosis or clubbing, Normal movement of all extremities 8.Skin: Warm, Dry. No rashes or lesions. 9.Neuro: executive candidate developer II-XII grossly intact. Sensation grossly intact, no focal neurologic deficits. 10.Psych: (AAO) x3. Appropriate mood and affect Course Vital Signs Pulse 116 H 11/20/18 14:51 Respiratory Rate 15 11/20/18 14:51 Blood Pressure 148/68 H 11/20/18 14:51 Pulse Oximetry 95 11/20/18 14:51 Temperature Source Skin 11/20/18 14:51 Pulse 116 H 11/20/18 14:51 Respiratory Rate 15 11/20/18 14:51 Blood Pressure 148/68 H 11/20/18 14:51 Blood Pressure Position Sitting 11/20/18 14:51 Pulse Oximetry 95 11/20/18 14:51 Oxygen Delivery Method Room Air 11/20/18 14:51 Oxygen Flow Rate 0 11/20/18 14:51 Pain Level 0 11/20/18 14:51
[2018-11-20 16:12] VITALS: BP 148/68; PULSE 112; RESP 15; TEMP 36.7; O2SAT 95
--- NOTE | 2018-11-20 16:47 | CMPROGNOTE_ITS ---
Care Management Progress Note Dr. Lynn requested this com writer meet with Cece regarding home based service supports, increased supports and returning to the community. Per MD, Cece is reporting she can not manage her care needs and reported [facility] services reported they would no longer be coming out to the home. Per MD, Cece also reported she called solids control technician MD who directed her to ER for Half-Way placement. CM called solids control technicianlicensed master social worker for [facility]; Diana who reported the goal would be for Cece to manage her own tube feeds in her home setting. Diana reported Cece had discharged from [facility] to her son's home recently and yesterday due to not getting along with her son, Cece returned to her own home setting in [place]. Diana reported a [facility] RN was responding to Cece's home twice daily and that Cece was struggling with learning to manage her own care needs. CM met with Cece in the ED, she was sitting on the side of the bed and engaged pleasantly and fully with this com writer. She voiced concerns over increased weakness and reported she would rather go to a SNF than manage the tube feeds at home and was not interested in learning how. CM reviewed community based plan for [facility] services and Cece verbalizes she knew the goal would be for her to learn how to manage her own care needs but that she felt weak and would prefer SNF placement at this time. CM reviewed lack of bed availability-Cece reported she would be willing to go to any open facility. Cece was provided contact info for this com writer and encouraged to discuss the above with her mental health social worker through [facility] on Thursday; Angélica Mccallum. CM agreed to support placement coordination as well. Cece will likely consider LTC Medicaid or disability moving forward. CM called Diana to notify of discharge; Diana reported Saskia RN would be going to Cece's [facility] to support her with tube feeding. The goal will be for Cece to remain in the community until Cece and her community based supports can coordinate SNF placement.
--- NOTE | 2018-11-20 19:16 | ED.GENADUL_ITS ---
Discharge Plan Disposition Patient Disposition: HOME Condition: Good Discharge Details Chief Complaint: GenMedical Clinical Impression: Leaking PEG tube, Physically well but worried Primary Care Provider: Rowena Mayo V ED Provider: Tony Lynn Home Meds and New Rx's Prescriptions: No Action fluticasone [Flonase Allergy Relief] 50 mcg/actuation [place],Suspension 2 spray INTRANASAL DAILY PRNRF: 0 acetaminophen [Acephen] 650 mg Suppository 650 mg FL Q6H PRN PRNQty: 0 RF: 0 multivitamin Tablet 1 tab PO DAILY RF: 0 bupropion HCl 150 mg Tablet Sustained-Release 12 Hr 150 mg PO BID RF: 0 thiamine HCl (vitamin B1) [Vitamin B-1] 100 mg Tablet 100 mg PO DAILY RF: 0 omeprazole 40 mg Capsule,Delayed Release(Dr/Ec) 40 mg PO DAILY RF: 0 nafcillin 2 gram Recon Soln 2 g IV Q4H RF: 0 folic acid 1 mg Tablet 1 mg PO DAILY RF: 0 tamoxifen 20 mg Tablet 20 mg PO DAILY RF: 0 rosuvastatin 5 mg Tablet 5 mg PO DAILY RF: 0 venlafaxine 150 mg Tablet Extended Release 24hr 150 mg PO DAILY RF: 0 levothyroxine 50 mcg Capsule 50 mcg PO DAILY RF: 0 Discharge Instructions Additional Instructions: If you notice any leaking from your PEG tube, please contact us immediately. If you notice any worsening of your symptoms, or any new symptoms such as vomiting, diarrhea, fever, chills, shortness of breath, chest pain, numbness, weakness, or fainting , please return immediately to the emergency department for reevaluation. Please follow up with your primary care provider as soon as possible for reassessment and reevaluation. As always, it was a pleasure participating in your medical care today. Referrals: Rowena Mayo MD [Primary Care Provider] - Medical Decision Making This is a pleasant 53-year-old female with esophageal cancer who is currently undergoing chemotherapy and radiation. She presents today because she is worried she cannot take care of herself. She has a PEG tube in place that is working well. Patient's concerns for loose PEG tube at the site of the stopcock seems to be unfounded. We were able to attach it well without any signs of abnormality, malfunction, or problem. The patient's primary concern seems to be that she is worried that she will not be able to care for herself if she does not have extra assistance at home. We did have the case briefer come and discuss potential skilled nursing options versus continued home health at home. Through shared decision making process with myself, the patient, and care management patient has been given resources that she is asked for and are necessary. She feels currently now that she actually does have what she needs and she will hold off on skilled nursing pursuant at this time. All questions were answered, and extensive amount of time was spent with the patient answering all questions, reviewing her PEG tube, as well as evaluating her home needs. Patient's vital signs are reassuring. She does have mild tachycardia however review of previous vital signs demonstrate that the mild tachycardia is persistent and consistent with her multiple previous other visits. With no symptoms of chest pain, shortness of breath no fever, no other complaints, I do feel that she can be safely discharged home. She has resources that she needs, she feels comfortable with current plan. We discussed red flags which to return and the patient understands. I have extensively reviewed the treatment plan and discharge instructions with the patient. I have addressed all patient concerns at this time. The patient was made aware of what symptoms to monitor for that would warrant a return to the emergency department. Discussed the plan with the patient, they demonstrate verbal understanding and agreement with our assessment and plan at this time. HPI General Date/Time Provider Initiated Documentation: 11/20/18 14:23 . HPI Narrative: This is a 53-year-old female with a past medical history of esophageal cancer with recent PEG tube placement for feeding, who presents today for concern for inability to care for her needs and PEG tube concern. She states that the PEG tube connector has come undone a few times at the connector between the stopcock and the secondary tubing. She was concerned that this may be an issue. Additionally her home health nursing staff stated today that they would no longer be able to come visit much anymore, and this worried the patient significantly. The patient contacted her primary care provider and told her that she felt that she was worried she might not be able to take care of herself without help, and the PCP recommended that she come in here for further evaluation and potential placement in a skilled nursing. The patient has no other complaints whatsoever. There have been no changes in her diet, she has been tolerating her tube feeds well. She has had no vomiting or blood in her stool. She denies any fevers, chills, chest pain or shortness of breath. She has been taking her medications at home with the help of home health. She denies any other complaints at this time. Patient states that the reason that she is in here is for assistance and potential skilled nursing placement. Related Data Home Medications Medication Instructions Recorded Confirmed fluticasone [Flonase Allergy 2 spray INTRANASAL DAILY PRN 10/01/18 10/25/18 Relief] acetaminophen [Acephen] 650 mg FL Q6H PRN PRN #0 ea 10/10/18 10/25/18 bupropion HCl 150 mg PO BID 10/25/18 10/26/18 folic acid 1 mg PO DAILY 10/25/18 10/25/18 levothyroxine 50 mcg PO DAILY 10/25/18 10/25/18 multivitamin 1 tab PO DAILY 10/25/18 10/25/18 nafcillin 2 g IV Q4H 10/25/18 10/25/18 omeprazole 40 mg PO DAILY 10/25/18 10/25/18 rosuvastatin 5 mg PO DAILY 10/25/18 10/25/18 tamoxifen 20 mg PO DAILY 10/25/18 10/25/18 thiamine HCl (vitamin B1) [Vitamin 100 mg PO DAILY 10/25/18 10/25/18 B-1] venlafaxine 150 mg PO DAILY 10/25/18 10/25/18 Previous Rx's Medication Instructions Recorded acetaminophen [Acephen] 650 mg FL Q6H PRN PRN #0 ea 10/10/18 Allergies Allergy/AdvReac Type Severity Reaction Status Date / Time No Known Allergies Allergy Unverified 10/25/18 20:41 General Stated Complaint: GenMedical DELMI: 4 Review of Systems Review of Systems All systems reviewed & are unremarkable except as noted in HPI and below PFSH Medical History Abdominal pain (Acute) Depression (Chronic) Cachexia (Acute) Bacteremia (Resolved) Squamous cell carcinoma of esophagus (Acute) Malnutrition (Chronic) Hypokalemia (Resolved) Hypomagnesemia (Resolved) Medical non-compliance (Chronic) Tobacco abuse (Chronic) Breast cancer (Chronic) PAD (peripheral artery disease) (Chronic) Dysphagia (Chronic) Alcohol abuse (Chronic) Claudication in peripheral vascular disease (Acute) Weight loss of more than 10% body weight (Acute) Hypertension (Chronic) Hypothyroidism (Chronic) Social History caregiver/support person: No household members: none housing: other details: has a house but cannot access it due to her illnesses and weakness lives independently: Yes number of children: 2 skilled nursing: No current occupational status: disabled current occupation: was working at [employer], couldn't do her job anymore pets and animals: No well-balanced diet: rarely or never eating out: rarely or never reads food labels: seldom or never during the past year weight has: decreased > 10 lbs Smoking/Tobacco Use Status: Former Tobacco Use alcohol intake: former Exam Narrative Exam Narrative: 1.Const: Thin elderly and cachectic appearing 2.Eyes: PERRL, no conjunctival injection, and symmetrical lids. 3.ENT: Atraumatic external nose and ears. Moist MM. Neck: Symmetric, trachea midline, No thyromegaly. 4.CVS: +S1/S2, No murmurs or gallops. Peripheral pulses 2+ and equal in all extremities. Brisk capillary refill in all extremities. 5.RESP: Unlabored respiratory effort. Clear to auscultation bilaterally. No wheezes rales or rhonchi 6.GI: Soft, Nontender/Nondistended, No hepatosplenomegaly. No guarding or rebound. Left-sided PEG tube is in place, no erythema or drainage. PEG tube is flowing well. 7.MSK: Normocephalic/Atraumatic, Extremities w/o deformity or ttp No cyanosis or clubbing, Normal movement of all extremities 8.Skin: Warm, Dry. No rashes or lesions. 9.Neuro: director of environmental services II-XII grossly intact. Sensation grossly intact, no focal neurologic deficits. 10.Psych: (AAO) x3. Appropriate mood and affect Course Vital Signs Pulse 116 H 11/20/18 14:51 Respiratory Rate 15 11/20/18 14:51 Blood Pressure 148/68 H 11/20/18 14:51 Pulse Oximetry 95 11/20/18 14:51 Temperature Source Skin 11/20/18 14:51 Pulse 116 H 11/20/18 14:51 Respiratory Rate 15 11/20/18 14:51 Blood Pressure 148/68 H 11/20/18 14:51 Blood Pressure Position Sitting 11/20/18 14:51 Pulse Oximetry 95 11/20/18 14:51 Oxygen Delivery Method Room Air 11/20/18 14:51 Oxygen Flow Rate 0 11/20/18 14:51 Pain Level 0 11/20/18 14:51
== END 2018-11-20 16:07 | disposition home or self-care (01) ==
PROVIDERS: Emergency Provider Student in an Organized Health Care Education/Training Program; PCP Family Medicine
DX: K94.20 Gastrostomy complication, unspecified (principal); R00.0 Tachycardia, unspecified; C15.9 Malignant neoplasm of esophagus, unspecified; Z92.21 Personal history of antineoplastic chemotherapy; Z92.3 Personal history of irradiation
CPT/HCPCS: 99282

== ENCOUNTER 2018-12-08 05:25 | Outpatient (RCR) | payer MEDICAID, SELFPAY ==
[2018-11-23] MEDS: Normal Saline Flush 10 ML SYR IVP ×2 (10:05→15:55)
[2018-11-23 10:31] LABS: Abs Immature Grans 0.08 k/cumm (0.0-0.09); Absolute Basophil Count 0.02 k/cumm (0.0-0.2); Absolute Lymphocyte Count 0.79 k/cumm (1.2-3.4); Absolute Monocyte Count 0.71 k/cumm (0.11-0.7); Absolute Neutrophil Count 8.13 k/cumm (1.2-6.7); Basophils % 0.2; HCT 22.6 % (36.0-46.0); HGB 7.5 g/dL (12.0-15.5); Immature Grans % 0.8; Mean Corp. HGB Concentration 33.2 g/dL (32.0-36.0); Mean Corpuscular Hemoglobin 30.2 pg (27.0-33.0); Mean Corpuscular Volume 91.1 fL (80-95); Mean Platelet Volume 9.2 fL (8.0-11.0); Monocytes % 7.2; Neutrophils % 82.8; Platelet Count 569 x1000/uL (130-400); RBC 2.48 m/cumm (4.00-5.20); RBC Distribution Width 13.9 % (11.7-14.6); White Blood Cell Count 9.83 k/cumm (4.4-10.8)
[2018-11-23 10:38] LABS: ALT 21 U/L (12-78); AST 18 U/L (15-37); Albumin 2.1 g/dL (3.4-5.0); Alkaline Phosphatase 93 U/L (46-116); Anion Gap 10.8 mmol/L (3-11); BUN 16 mg/dL (7-18); Bilirubin, Total 0.2 mg/dL (0.2-1.0); CO2 23.2 mmol/L (21.0-32.0); CREATININE 0.68 mg/dL (0.55-1.02); Calcium 8.9 mg/dL (8.5-10.1); Chloride 98 mmol/L (98-107); Glucose 129 mg/dL (70-100); Potassium 4.5 mmol/L (3.5-5.1); Sodium 132 mmol/L (136-145); Total Protein 7.5 g/dL (6.4-8.2)
[2018-11-23 11:19] LABS: Magnesium 1.4 mg/dL (1.8-2.4)
[2018-11-23] MEDS: Heparin 500 UNITS/5 ML SYRINGE IV (15:55)
[2018-11-24 10:42] VITALS: BP 108/59; PULSE 103; RESP 18; TEMP 36.4; O2SAT 100
[2018-11-24 10:48] VITALS: BP 120/62; PULSE 104; RESP 18; TEMP 36.7; O2SAT 100
[2018-11-24 11:03] VITALS: BP 121/57; PULSE 101; RESP 18; TEMP 36.4; O2SAT 100
[2018-11-24 11:33] VITALS: BP 115/63; PULSE 109; RESP 18; TEMP 37.3; O2SAT 98
[2018-11-24 12:29] VITALS: BP 122/65; PULSE 100; RESP 16; TEMP 36.6; O2SAT 98
[2018-11-30] MEDS: Normal Saline Flush 10 ML SYR IVP (09:20)
[2018-11-30 09:57] LABS: Abs Immature Grans 0.02 k/cumm (0.0-0.09); Absolute Basophil Count 0.02 k/cumm (0.0-0.2); Absolute Eosinophil Count 0.02 k/cumm (0.0-0.7); Absolute Lymphocyte Count 0.53 k/cumm (1.2-3.4); Absolute Monocyte Count 0.88 k/cumm (0.11-0.7); Absolute Neutrophil Count 5.69 k/cumm (1.2-6.7); Basophils % 0.3; Eosinophils % 0.3; HCT 24.1 % (36.0-46.0); Immature Grans % 0.3; Lymphocytes % 7.4; Mean Corp. HGB Concentration 33.2 g/dL (32.0-36.0); Mean Corpuscular Volume 90.3 fL (80-95); Mean Platelet Volume 9.2 fL (8.0-11.0); Monocytes % 12.3; Neutrophils % 79.4; Platelet Count 396 x1000/uL (130-400); RBC 2.67 m/cumm (4.00-5.20); RBC Distribution Width 13.6 % (11.7-14.6); White Blood Cell Count 7.16 k/cumm (4.4-10.8)
[2018-11-30 10:12] LABS: ALT 23 U/L (12-78); AST 19 U/L (15-37); Albumin 2.1 g/dL (3.4-5.0); Alkaline Phosphatase 113 U/L (46-116); Anion Gap 10.8 mmol/L (3-11); BUN 14 mg/dL (7-18); Bilirubin, Total 0.3 mg/dL (0.2-1.0); CO2 22.2 mmol/L (21.0-32.0); CREATININE 0.54 mg/dL (0.55-1.02); Calcium 9.1 mg/dL (8.5-10.1); Chloride 93 mmol/L (98-107); Glucose 124 mg/dL (70-100); Potassium 4.8 mmol/L (3.5-5.1); Sodium 126 mmol/L (136-145); Total Protein 7.5 g/dL (6.4-8.2)
[2018-11-30 10:32] LABS: Magnesium 1.4 mg/dL (1.8-2.4)
[2018-11-30 13:34] VITALS: BP 122/65; PULSE 100; RESP 16; TEMP 36.6; O2SAT 98
[2018-12-06 12:28] LABS: Abs Immature Grans 0.02 k/cumm (0.0-0.09); Absolute Basophil Count 0.01 k/cumm (0.0-0.2); Absolute Eosinophil Count 0.01 k/cumm (0.0-0.7); Absolute Lymphocyte Count 0.53 k/cumm (1.2-3.4); Absolute Monocyte Count 0.36 k/cumm (0.11-0.7); Absolute Neutrophil Count 3.34 k/cumm (1.2-6.7); Basophils % 0.2; Eosinophils % 0.2; Immature Grans % 0.5; Lymphocytes % 12.4; Mean Corpuscular Hemoglobin 29.6 pg (27.0-33.0); Mean Corpuscular Volume 89.7 fL (80-95); Mean Platelet Volume 8.5 fL (8.0-11.0); Monocytes % 8.4; Neutrophils % 78.3; Platelet Count 227 x1000/uL (130-400); RBC 2.33 m/cumm (4.00-5.20); RBC Distribution Width 13.4 % (11.7-14.6); White Blood Cell Count 4.27 k/cumm (4.4-10.8)
[2018-12-06 12:42] LABS: HGB 6.9 g/dL (12.0-15.5)
[2018-12-06 12:43] LABS: ALT 16 U/L (12-78); AST 16 U/L (15-37); Alkaline Phosphatase 83 U/L (46-116); Anion Gap 10.6 mmol/L (3-11); BUN 13 mg/dL (7-18); Bilirubin, Total 0.2 mg/dL (0.2-1.0); CO2 22.4 mmol/L (21.0-32.0); CREATININE 0.55 mg/dL (0.55-1.02); Calcium 8.9 mg/dL (8.5-10.1); Chloride 94 mmol/L (98-107); Glucose 120 mg/dL (70-100); HCT 20.9 % (36.0-46.0); Potassium 4.7 mmol/L (3.5-5.1); Sodium 127 mmol/L (136-145)
[2018-12-06] MEDS: Normal Saline Flush 10 ML SYR IVP (12:55)
[2018-12-06] MEDS: Heparin 500 UNITS/5 ML SYRINGE IV (12:55)
[2018-12-07 14:27] VITALS: BP 105/64; PULSE 105; RESP 18; TEMP 36.5; O2SAT 100
[2018-12-07 14:42] VITALS: BP 119/65; PULSE 104; RESP 18; TEMP 36; O2SAT 100
[2018-12-07 14:57] VITALS: BP 116/68; PULSE 108; RESP 18; TEMP 36; O2SAT 100
[2018-12-07 15:27] VITALS: BP 124/69; PULSE 105; RESP 18; TEMP 36.4; O2SAT 100
[2018-12-07] MEDS: Normal Saline Flush 10 ML SYR IVP (15:30)
[2018-12-07 16:30] VITALS: BP 128/67; PULSE 106; RESP 18; TEMP 36.3; O2SAT 100
[2018-12-07] MEDS: Heparin 500 UNITS/5 ML SYRINGE IV (16:30)
[2018-12-08 07:57] VITALS: BP 106/59; PULSE 106; RESP 18; TEMP 36.4; O2SAT 98
[2018-12-08 08:20] VITALS: BP 105/63; PULSE 100; RESP 18; TEMP 36.5; O2SAT 100
[2018-12-08 08:26] VITALS: BP 115/63; PULSE 99; RESP 18; TEMP 35.8; O2SAT 100
[2018-12-08 08:56] VITALS: BP 122/72; PULSE 100; RESP 18; TEMP 36.2; O2SAT 100
== END 2018-12-09 23:59 | disposition home or self-care (01) ==
LOC: INF 05:25
PROVIDERS: PCP Family Medicine; Visit Provider Nurse Practitioner Family
DX: C50.011 Malignant neoplasm of nipple and areola, right female breast (principal); C15.9 Malignant neoplasm of esophagus, unspecified; Z45.2 Encounter for adjustment and management of vascular access device
CPT/HCPCS: 36430; 36591; 80053; 86850; 86900; 86901; 86920; 96523; 83735; 85025; P9016

== ENCOUNTER 2018-12-21 01:55 | Outpatient (CLI) | payer MEDICAID, SELFPAY ==
--- NOTE | 2018-12-21 09:00 | DI.RAD_ITS ---
SYMPTOM/DIAGNOSIS: SQUAMOUS CELL CA ESOPHAGUS, C15.9, EVALUATE ABILITY TO EAT SOFT FOODS MODIFIED BARIUM SWALLOW: Fluoroscopy Time: 2 min 8 seconds Modified barium swallow was performed in conjunction with the Dept of Speech Pathology. Comparison CT scan is 09/26/18. Modified barium swallow was performed following the ingestion of thin and thick barium with various food items. The oropharyngeal phase of swallowing was unremarkable. No evidence of aspiration was identified. There was marked narrowing seen in the esophagus at the level of the aortic arch consistent with the patient's known esophageal carcinoma. There was failure of a 1.2 cm. barium tablet to pass beyond this area. The patient has a right sided portacath. IMPRESSION: 1. No evidence of aspiration. Normal oropharyngeal phase of swallowing. 2. Marked narrowing seen in the mid esophagus at the level of the aortic arch consistent with the patient's known esophageal carcinoma.
[2018-12-21] MEDS: Barium Sulfate 700 MG TAB PO (09:36)
== END 2018-12-21 02:15 ==
PROVIDERS: PCP Family Medicine; Visit Provider Nurse Practitioner Family
DX: C15.9 Malignant neoplasm of esophagus, unspecified (principal)
CPT/HCPCS: 74220

== ENCOUNTER 2018-12-21 03:06 | Outpatient (CLI) | payer MEDICAID, SELFPAY | END 2018-12-21 03:26 | PROVIDERS: PCP Family Medicine | DX: R13.14 Dysphagia, pharyngoesophageal phase (principal) | CPT/HCPCS: 92611 ==

== ENCOUNTER 2019-01-05 00:32 | Outpatient (RCR) | payer MEDICAID, SELFPAY ==
[2018-12-14] MEDS: Normal Saline Flush 10 ML SYR IVP (08:33)
[2018-12-14 08:41] LABS: Abs Immature Grans 0.01 k/cumm (0.0-0.09); Absolute Eosinophil Count 0.01 k/cumm (0.0-0.7); Absolute Lymphocyte Count 0.43 k/cumm (1.2-3.4); Absolute Monocyte Count 0.22 k/cumm (0.11-0.7); Absolute Neutrophil Count 1.97 k/cumm (1.2-6.7); Eosinophils % 0.4; HCT 26.2 % (36.0-46.0); HGB 8.7 g/dL (12.0-15.5); Immature Grans % 0.4; Lymphocytes % 16.3; Mean Corp. HGB Concentration 33.2 g/dL (32.0-36.0); Mean Corpuscular Hemoglobin 29.7 pg (27.0-33.0); Mean Corpuscular Volume 89.4 fL (80-95); Mean Platelet Volume 9.1 fL (8.0-11.0); Monocytes % 8.3; Neutrophils % 74.6; Platelet Count 114 x1000/uL (130-400); RBC 2.93 m/cumm (4.00-5.20); RBC Distribution Width 13.4 % (11.7-14.6); White Blood Cell Count 2.64 k/cumm (4.4-10.8)
[2018-12-14 08:59] LABS: ALT 16 U/L (12-78); AST 16 U/L (15-37); Albumin 2.1 g/dL (3.4-5.0); Alkaline Phosphatase 75 U/L (46-116); Anion Gap 9.4 mmol/L (3-11); BUN 14 mg/dL (7-18); Bilirubin, Total 0.2 mg/dL (0.2-1.0); CO2 23.6 mmol/L (21.0-32.0); CREATININE 0.52 mg/dL (0.55-1.02); Calcium 8.7 mg/dL (8.5-10.1); Chloride 95 mmol/L (98-107); Glucose 150 mg/dL (70-100); Magnesium 1.4 mg/dL (1.8-2.4); Potassium 3.8 mmol/L (3.5-5.1); Sodium 128 mmol/L (136-145); Total Protein 6.8 g/dL (6.4-8.2)
[2018-12-20] MEDS: Normal Saline Flush 10 ML SYR IVP (14:04)
[2018-12-20] MEDS: Heparin 500 UNITS/5 ML SYRINGE IV (14:04)
[2018-12-20 14:17] LABS: Abs Immature Grans 0.01 k/cumm (0.0-0.09); Absolute Eosinophil Count 0.02 k/cumm (0.0-0.7); HCT 24.1 % (36.0-46.0); Mean Corp. HGB Concentration 33.2 g/dL (32.0-36.0); Mean Corpuscular Hemoglobin 29.9 pg (27.0-33.0); Mean Corpuscular Volume 89.9 fL (80-95); Mean Platelet Volume 9.4 fL (8.0-11.0); Platelet Count 179 x1000/uL (130-400); RBC 2.68 m/cumm (4.00-5.20); RBC Distribution Width 14.3 % (11.7-14.6)
[2018-12-20 14:29] LABS: ALT 16 U/L (12-78); AST 15 U/L (15-37); Albumin 2.2 g/dL (3.4-5.0); Alkaline Phosphatase 73 U/L (46-116); Anion Gap 6.3 mmol/L (3-11); BUN 11 mg/dL (7-18); Bilirubin, Total 0.2 mg/dL (0.2-1.0); CO2 23.7 mmol/L (21.0-32.0); CREATININE 0.59 mg/dL (0.55-1.02); Calcium 8.7 mg/dL (8.5-10.1); Chloride 98 mmol/L (98-107); Glucose 154 mg/dL (70-100); Magnesium 1.4 mg/dL (1.8-2.4); Potassium 4.3 mmol/L (3.5-5.1); Sodium 128 mmol/L (136-145); Total Protein 6.7 g/dL (6.4-8.2)
[2018-12-20 14:44] LABS: Absolute Lymphocyte Count 0.51 k/cumm (1.2-3.4); Absolute Neutrophil Count 0.91 k/cumm (1.2-6.7)
[2018-12-20 14:46] LABS: Absolute Basophil Count 0.02 k/cumm (0.0-0.2); Diff Comment Manual Differential; RBC Morphology Normal
[2018-12-20 14:47] LABS: White Blood Cell Count 1.65 k/cumm (4.4-10.8)
[2019-01-05 13:16] LABS: ALT 15 U/L (12-78); AST 15 U/L (15-37); Albumin 2.5 g/dL (3.4-5.0); Alkaline Phosphatase 107 U/L (46-116); Anion Gap 9.3 mmol/L (3-11); BUN 7 mg/dL (7-18); Bilirubin, Total 0.1 mg/dL (0.2-1.0); CO2 25.7 mmol/L (21.0-32.0); CREATININE 0.82 mg/dL (0.55-1.02); Calcium 8.9 mg/dL (8.5-10.1); Chloride 99 mmol/L (98-107); Glucose 132 mg/dL (70-100); Potassium 4.2 mmol/L (3.5-5.1); Sodium 134 mmol/L (136-145); Total Protein 7.6 g/dL (6.4-8.2)
[2019-01-05 13:23] LABS: Abs Immature Grans 0.07 k/cumm (0.0-0.09); Absolute Basophil Count 0.04 k/cumm (0.0-0.2); Absolute Eosinophil Count 0.09 k/cumm (0.0-0.7); Absolute Lymphocyte Count 0.88 k/cumm (1.2-3.4); Absolute Neutrophil Count 4.93 k/cumm (1.2-6.7); Basophils % 0.6; Eosinophils % 1.3; HCT 27.6 % (36.0-46.0); HGB 9.2 g/dL (12.0-15.5); Lymphocytes % 12.9; Mean Corp. HGB Concentration 33.3 g/dL (32.0-36.0); Mean Corpuscular Hemoglobin 31.1 pg (27.0-33.0); Mean Corpuscular Volume 93.2 fL (80-95); Monocytes % 11.7; Neutrophils % 72.5; Platelet Count 345 x1000/uL (130-400); RBC 2.96 m/cumm (4.00-5.20); RBC Distribution Width 17.6 % (11.7-14.6); White Blood Cell Count 6.81 k/cumm (4.4-10.8)
[2019-01-05] MEDS: Normal Saline Flush 10 ML SYR IVP (13:26)
[2019-01-05] MEDS: Heparin 500 UNITS/5 ML SYRINGE IV (13:26)
== END 2019-01-06 23:59 | disposition home or self-care (01) ==
LOC: INF 00:32
PROVIDERS: PCP Family Medicine; Visit Provider Nurse Practitioner Family
DX: C50.011 Malignant neoplasm of nipple and areola, right female breast (principal); C15.9 Malignant neoplasm of esophagus, unspecified; Z45.2 Encounter for adjustment and management of vascular access device
CPT/HCPCS: 36591; 80053; 86900; 86901; 83735; 85025

== ENCOUNTER 2019-01-07 13:50 | Outpatient (RCR) | payer MEDICAID, SELFPAY ==
[2019-01-07] MEDS: Normal Saline Flush 10 ML SYR IVP (14:35)
[2019-01-07] MEDS: Heparin 500 UNITS/5 ML SYRINGE IV (14:35)
[2019-01-07 16:11] LABS: T4 7.6 ug/dL (4.5-12.5); TSH 0.38 uIU/mL (0.358-3.74)
== END 2019-02-06 23:59 | disposition home or self-care (01) ==
LOC: INF 13:50
PROVIDERS: PCP Family Medicine; Visit Provider Nurse Practitioner Family
DX: R00.0 Tachycardia, unspecified (principal); E07.9 Disorder of thyroid, unspecified; Z45.2 Encounter for adjustment and management of vascular access device
CPT/HCPCS: 36591; 84436; 84443; 93005; 93010

== ENCOUNTER 2019-02-25 01:01 | Outpatient (RCR) | payer MEDICAID, SELFPAY | END 2019-02-28 23:59 | disposition home or self-care (01) | LOC: INF 01:01 | PROVIDERS: PCP Family Medicine; Visit Provider Nurse Practitioner Family | DX: R69 Illness, unspecified (principal) ==